=== PATIENT | female | born 1960 | race Caucasian/White ===

== ENCOUNTER 2020-06-19 03:12 | Inpatient (IN) | payer OTHER, SELFPAY ==
[2020-06-19] VITALS (21 sets, daily range): BP systolic 90–112; BP diastolic 34–71; PULSE 75–120; RESP 15–24; TEMP 36.2–38.6; O2SAT 87–100; BMI 22.8
--- NOTE | 2020-06-19 03:34 | PC.NURSE ---
IV established, labs obtained. Awaiting primary MD tirado.
--- NOTE | 2020-06-19 03:39 | PC.NURSE ---
Pt is from home by EMS, CAOx4, speaking full sentences, reports a productive cough, SOB, PANTOJA, vomiting and weakness since Tuesday. Pt using inhalers with no relief. Expiratory wheezing noted throughout however pt in no respiratory distress, skin pink, warm and dry, satting @ 98% on 2 lpm. Pt denies being seen for current medical complaints prior to tonight. Pt denies sick contacts. Resting in bed, call saucedo within reach, awaiting primary MD eval. Continue to monitor.
--- NOTE | 2020-06-19 03:54 | ECG_ITS ---
Test Reason : SOB Blood Pressure : / mmHG Vent. Rate : 110 BPM Atrial Rate : 110 BPM P-R Int : 128 ms QRS Dur : 088 ms QT Int : 332 ms P-R-T Axes : 031 027 052 degrees QTc Int : 449 ms Sinus tachycardia Otherwise normal ECG When compared with ECG of 19-DEC-2018 16:20, No significant change was found Heart rate has increased Referred By: Daniel Galan Electronically Signed By:CONCHITA KAY MD
--- NOTE | 2020-06-19 03:54 | XR_ITS ---
EXAMINATION: XR CHEST CLINICAL INFORMATION: Shortness of breath COMPARISON: 12/19/2018 TECHNIQUE: Frontal view of the chest was obtained. FINDINGS: The lungs are well expanded. Airspace opacity of the left mid to lower lung. Possible small left pleural effusion. No pneumothorax. The cardiomediastinal silhouette is within normal limits. XR/XR chest 1V IMPRESSION: Airspace opacity of the left mid to lower lung is suspicious for pneumonia. Follow-up to resolution.
--- NOTE | 2020-06-19 04:05 | ED_ITS ---
HPI - SOB/Dyspnea General Chief Complaint: Dyspnea Stated Complaint: flu like symptoms, sob and vomiting Time Seen by Provider: 06/19/20 03:54 Source: patient Mode of arrival: ambulatory History of Present Illness HPI Narrative: 59-year-old female with chief complaint of shortness of breath x1 week. Patient states of increased cough however has not noticed any increase in phlegm production. Denies fevers however does have chills. Denies being around any sick people with COVID. Denies chest pain denies nausea vomiting or abdominal pain. Denies dizziness or syncope Patient states to me she is having a COPD attack MD elicited complaint: shortness of breath and cough Pertinent past history: COPD Timing: constant Severity: moderate Known history of: COPD Related Data Home Medications Medication Instructions Recorded Confirmed alprazolam 1 mg PO BID PRN 06/19/20 06/19/20 fluticasone propionate [Flovent 2 puff INHALATION BID 06/19/20 06/19/20 HFA] ibuprofen 600 mg PO TID 06/19/20 06/19/20 ipratropium-albuterol 3 ml INHALATION NEEDED 06/19/20 06/19/20 sertraline 100 mg PO DAILY 06/19/20 06/19/20 umeclidinium [Incruse Ellipta] 1 INHALATION DAILY 06/19/20 umeclidinium [Incruse Ellipta] 62.5 mcg INHALATION DAILY 06/19/20 06/19/20 Previous Rx's Medication Instructions Recorded albuterol sulfate 90 mcg/actuation 2 puff PO Q2H PRN #8.5 g 05/27/20 aerosol inhaler Allergies Allergy/AdvReac Type Severity Reaction Status Date / Time No Known Allergies Allergy Unverified 04/10/20 19:09 [No Known Allergies*] latex Allergy Unknown rash Uncoded 06/19/20 05:58 Review of Systems Review of Systems: Constitutional : No Weight loss, No Fever, No Chills, No Night Sweats, mild Fatigue, mild Malaise ENT/Mouth : No Hearing loss, No Ear Pain, No Nasal Congestion, No Sinus Pain, No Hoarseness, No sore throat, No Rhinorrhea, No Swallowing Difficulty Eyes: No Eye Pain, No Swelling, No Redness, No Foreign Body, No Discharge, No Vision Changes Cardiovascular : No Chest Pain, No SOB, No Dyspnea on Exertion, No Orthopnea, No Edema, No Palpitations Respiratory : Positive Cough, No Sputum, positive Wheezing, No Smoke Exposure, positive Dyspnea Gastrointestinal : No Nausea, No Vomiting, No Diarrhea, No Constipation, No abdominal Pain, No Hematochezia, No Melena Genitourinary : no irregular bleeding, No Dysuria, No Urinary Frequency, No Hematuria, No Urinary Incontinence, No Urgency, No Flank Pain, No Urinary Flow Changes, No Hesitancy Musculoskeletal : No joint pain, No Myalgias, No Joint Swelling Skin : No Skin Lesions, No rash Neuro : No Weakness, No Numbness, No Paresthesias, No Loss of Consciousness, No Dizziness, No Headache Psych : No Anxiety/Panic, No Depression, No SI/HI/AH/VH, No Social Issues, Heme/Lymph: No Bruising, No Bleeding,No Lymphadenopathy Endocrine : No Polyuria, No Polydipsia, No Temperature Intolerance [facility] Past Medical History Medical History (Updated 06/19/20 @ 06:38 by Jacoby Stern MD) Anxiety Asthma with COPD (chronic obstructive pulmonary disease) Family History Family History (Updated 06/19/20 @ 04:11 by Daniel Galan DO) Other Family history non-contributory Social History Social History (Updated 06/19/20 @ 04:11 by Daniel Galan DO) Household Members: Family Advance Directives: No Physical Exam Vital Signs: Vital Signs: Last Vital Signs Temp 98.6 F 06/19/20 05:34 Pulse 100 06/19/20 06:58 Resp 24 H 06/19/20 06:58 BP 102/53 L 06/19/20 06:58 Pulse Ox 96 06/19/20 06:58 Body Mass Index 22.8 Vital signs reviewed Pulse ox interpreted by me as 98% room air as normal Appearance: Alert. Oriented X3. No acute distress. Eyes: Pupils equal, round and reactive to light. ENT: Pharynx normal. Neck: Normal inspection. Neck supple. No lymph nodes noted. No crepitus CVS: Normal heart rate and rhythm. Pulses normal. Normal S1 and S2 Respiratory: [id number] respiratory distress. Breath sounds abnormal. Bilateral Wheezing. No rales decreased air movement bilateral Abdomen: Soft and nontender. No rigidity. No distention. good BS x4 Skin: Skin warm and dry. Normal skin color. Normal skin turgor. Extremities: No lower extremity edema. Neurovascular intact to all extremities. No Lacerations. No Rash Neuro: Oriented X 3. No motor deficit. No sensory deficit. Moving all extermities. No slurred speech. Course Course Course Narrative: Focused exam done at 05:00, IV fluids laboratory work IV antibiotics Reevaluation(s) Reevaluation #1: Was called bedside secondary to patient going to the restroom and coming back with severe shortness of breath. Patient's wheezing does now sounds like rales then she is having chest pain. Troponin at this point is in the buchanan zone. Patient has no history of heart disease and patient only received 1 L of fluids. At this point I will stop IV fluids. Repeat EKG and chest x-ray start 2 g of IV Mag I viewed repeat x-ray does not show oval failure. Repeat EKG did not show any STEMI. I did give the patient morphine in which did not help her pain I then gave her IV Toradol my impression is the pain secondary to her pneumonia infiltrate will continue to evaluate Time: 05:15 Time: 06:33 Reevaluation #3: I discussed admission with hospitalist who accepted patient, Dr Stern, requested sublingual nitro for chest pain after evaluation Re-evaluation out 7 a.m. after nitro patient without any chest pain relief at this point I do not believe it is cardiac MDM - SOB/Dyspnea MDM Narrative Medical decision making narrative: 59-year-old female history of COPD came in f or shortness of breath diagnosed with sepsis pneumonia. Sepsis bundle began in the emergency department.. Differential Diagnosis Differential diagnosis: Likely acute exacerbation of chronic obstructive airways disease (Sepsis, pneumonia) Medical Records Attestation: I reviewed the patient's medical records. Lab Data Attestation: I reviewed the patient's lab results. Result diagrams: 06/19/20 04:05 06/19/20 04:05 Labs: Lab Results 06/19/20 06/19/20 06/19/20 Range/Units 04:05 04:05 04:05 WBC 45.7 H* (4.8-10.8) X10*3/uL RBC 4.38 (4.20-5.50) X10*6/uL Hgb 12.4 (12.0-16.0) g/dl Hct 37.6 (37-47) % MCV 85.8 (80-98) fL MCH 28.3 (27.0-33.0) pg MCHC 33.0 (31.0-35.0) g/dl RDW 12.2 (11.0-16.0) % Plt Count 456 H (160-400) X10*3/uL MPV 9.9 (9.4-12.3) fL Immature Gran % (Auto) Cancelled Neut % (Auto) Cancelled Lymph % (Auto) Cancelled [place] % (Auto) Cancelled Eos % (Auto) Cancelled Baso % (Auto) Cancelled Lymph # (Auto) Cancelled [place] # (Auto) Cancelled Eos # (Auto) Cancelled Baso # (Auto) Cancelled Abs Immat Gran (auto) Cancelled Absolute Neuts (auto) Cancelled Absolute Nucleated RBC 0.000 (0.0-0.012) X10*3/uL Nucleated RBC % (auto) 0.0 (0.0-0.2) /100WBC Neutrophils % (Manual) 79 H (45-73) % Band Neutrophils % 12 H (3-5) % Lymphocytes % (Manual) 1 L (20-40) % Monocytes % (Manual) 7 (2-11) % Metamyelocytes % 1 % Abs Neuts (Manual) 41.6 H (2.2-7.9) X10*3/uL Lymphocytes # (Manual) 0.5 L (0.6-4.8) X10*3/uL Monocytes # (Manual) 3.2 H (0.0-1.2) X10*3/uL Metamyelocytes # 0.5 X10*3/uL Toxic Vacuolation PRESENT Platelet Estimate NORMAL (NORMAL) Plt Morphology Comment NORMAL RBC Morphology NORMAL PT 17.0 H (10.8-13.0) SEC INR 1.4 H (0.9-1.1) APTT 29.8 (24.1-38.0) SEC Sodium 129 L (135-145) mmol/L Potassium 4.4 (3.3-5.1) mmol/l Chloride 90 L (96-108) mmol/L Carbon Dioxide 26 (22-29) mmol/L Anion Gap 17 (12-20) BUN 40 H (9-16) mg/dL Creatinine 0.89 (0.5-1.4) mg/dL Estim Creat Clear Calc 55.1 Estimated GFR > 60 Random Glucose 97 (60-115) mg/dL Lactic Acid (0.5-2.0) mmol/L Calcium 8.2 L (8.4-10.2) mg/dL Total Bilirubin 0.6 (0.0-1.0) mg/dL Direct Bilirubin 0.5 (0.0-0.5) mg/dL AST 22 (5-31) U/L ALT 19 (0-31) U/L Alkaline Phosphatase 152 H (39-117) U/L Troponin I High Sens (<3.5-17.0) ng/L B-Natriuretic Peptide (<100) pg/mL Total Protein 6.3 L (6.5-8.0) g/dL Albumin 3.1 L (3.5-5.0) g/dL Lipase 5 L (8-78) U/L Coronavirus (PCR) (Negative) Influenza Type A (PCR) (Negative) Influenza Type B (PCR) (Negative) RSV RNA Qual (PCR) (Negative) 06/19/20 06/19/20 06/19/20 Range/Units 04:05 04:05 04:05 WBC (4.8-10.8) X10*3/uL RBC (4.20-5.50) X10*6/uL Hgb (12.0-16.0) g/dl Hct (37-47) % MCV (80-98) fL MCH (27.0-33.0) pg MCHC (31.0-35.0) g/dl RDW (11.0-16.0) % Plt Count (160-400) X10*3/uL MPV (9.4-12.3) fL Immature Gran % (Auto) Neut % (Auto) Lymph % (Auto) [place] % (Auto) Eos % (Auto) Baso % (Auto) Lymph # (Auto) [place] # (Auto) Eos # (Auto) Baso # (Auto) Abs Immat Gran (auto) Absolute Neuts (auto) Absolute Nucleated RBC (0.0-0.012) X10*3/uL Nucleated RBC % (auto) (0.0-0.2) /100WBC Neutrophils % (Manual) (45-73) % Band Neutrophils % (3-5) % Lymphocytes % (Manual) (20-40) % Monocytes % (Manual) (2-11) % Metamyelocytes % % Abs Neuts (Manual) (2.2-7.9) X10*3/uL Lymphocytes # (Manual) (0.6-4.8) X10*3/uL Monocytes # (Manual) (0.0-1.2) X10*3/uL Metamyelocytes # X10*3/uL Toxic Vacuolation Platelet Estimate (NORMAL) Plt Morphology Comment RBC Morphology PT (10.8-13.0) SEC INR (0.9-1.1) APTT (24.1-38.0) SEC Sodium (135-145) mmol/L Potassium (3.3-5.1) mmol/l Chloride (96-108) mmol/L Carbon Dioxide (22-29) mmol/L Anion Gap (12-20) BUN (9-16) mg/dL Creatinine (0.5-1.4) mg/dL Estim Creat Clear Calc Estimated GFR Random Glucose (60-115) mg/dL Lactic Acid 1.2 (0.5-2.0) mmol/L Calcium (8.4-10.2) mg/dL Total Bilirubin (0.0-1.0) mg/dL Direct Bilirubin (0.0-0.5) mg/dL AST (5-31) U/L ALT (0-31) U/L Alkaline Phosphatase (39-117) U/L Troponin I High Sens 14.9 (<3.5-17.0) ng/L B-Natriuretic Peptide 35 (<100) pg/mL Total Protein (6.5-8.0) g/dL Albumin (3.5-5.0) g/dL Lipase (8-78) U/L Coronavirus (PCR) NEGATIVE (Negative) Influenza Type A (PCR) NEGATIVE (Negative) Influenza Type B (PCR) NEGATIVE (Negative) RSV RNA Qual (PCR) NEGATIVE (Negative) ECG Data Attestation: I personally reviewed and interpreted this ECG as follows: Interpretation: Sinus tachycardic at 110 beats per minute. Normal axis. No ST- T changes Repeat EKG done at 05:21 interpreted by me as sinus tachycardia [address]-T changes Critical Care Time Critical Care Time Critical Care Time: Yes Total Critical Care Time: 35 Attestation: I tested my critical care Discharge Plan Discharge Clinical Impression: COPD exacerbation, Chest pain, Hyponatremia Pneumonia Qualifiers: Pneumonia type: due to unspecified organism Laterality: left Lung location: lower lobe of lung Qualified Code(s): J18.9 - Pneumonia, unspecified organism Sepsis Qualifiers: Sepsis type: sepsis due to unspecified organism Sepsis acute organ dysfunction status: unspecified Qualified Code(s): A41.9 - Sepsis, unspecified organism Patient Disposition: Admitted As Inpatient
[2020-06-19] MEDS: methylPREDNISolone Sod Succ/PF 125 MG/2 ML VIAL 60 MG IVPUSH (04:08)
[2020-06-19] MEDS: Acetaminophen 325 MG TABLET 650 MG PO (04:08)
[2020-06-19] MEDS: levoFLOXacin/D5W 750 MG/150 ML PIGGYBACK 100 MG IV (04:08)
[2020-06-19] MEDS: 0.9 % Sodium Chloride 1,700.97 ML 1700.97 ML IVCONT (04:09)
[2020-06-19] MEDS: Albuterol Sulfate (0.083%) 2.5 MG/3 ML VIAL.NEB 7.5 MG INHALE (04:19)
[2020-06-19 04:22] LABS: Hematocrit 37.6 % (37-47); Hemoglobin 12.4 g/dl (12.0-16.0); Mean Corpuscular Hemoglobin 28.3 pg (27.0-33.0); Mean Corpuscular Volume 85.8 fL (80-98); Mean Platelet Volume 9.9 fL (9.4-12.3); Platelet Count 456 X10*3/uL (160-400); Red Blood Count 4.38 X10*6/uL (4.20-5.50); Red Cell Distribution Width 12.2 % (11.0-16.0)
[2020-06-19 04:27] LABS: White Blood Count 45.7 X10*3/uL (4.8-10.8)
--- NOTE | 2020-06-19 04:28 | PC.NURSE ---
All labs including BCX x 2 and lactic obtained, Covid swab obtained. Pt medicated per EMAR with IVF, ABX and meds. EKG obtained. Pt awaiting lab results and CXR. Call saucedo within reach, continue to monitor.
[2020-06-19 04:31] LABS: INTERNATIONAL NORM RATIO 1.4 (0.9-1.1)
[2020-06-19 04:34] LABS: Partial Thromboplastin Time 29.8 SEC (24.1-38.0)
[2020-06-19 04:40] LABS: Lactic Acid 1.2 mmol/L (0.5-2.0)
[2020-06-19 04:46] LABS: Alanine Aminotransferase 19 U/L (0-31); Albumin Level 3.1 g/dL (3.5-5.0); Alkaline Phosphatase 152 U/L (39-117); Anion Gap 17 (12-20); Aspartate Amino Transferase 22 U/L (5-31); Bilirubin Direct 0.5 mg/dL (0.0-0.5); Bilirubin Total 0.6 mg/dL (0.0-1.0); Blood Urea Nitrogen 40 mg/dL (9-16); Calcium 8.2 mg/dL (8.4-10.2); Carbon Dioxide 26 mmol/L (22-29); Chloride 90 mmol/L (96-108); Creatinine Clr Calc Pharmacy 55.1; Estimated Glomerular Filt Rate > 60; Glucose Random 97 mg/dL (60-115); Lipase 5 U/L (8-78); Potassium 4.4 mmol/l (3.3-5.1); Sodium 129 mmol/L (135-145); Total Protein 6.3 g/dL (6.5-8.0)
[2020-06-19 04:50] LABS: Band Neutrophils Percent 12 % (3-5); Lymphocytes Absolute Manual 0.5 X10*3/uL (0.6-4.8); Lymphocytes Percent Manual 1 % (20-40); Metamyelocytes Absolute 0.5 X10*3/uL; Metamyelocytes Percent 1 %; Monocytes Absolute Manual 3.2 X10*3/uL (0.0-1.2); Monocytes Percent Manual 7 % (2-11); Neutrophils Absolute Manual 41.6 X10*3/uL (2.2-7.9); Neutrophils Percent Manual 79 % (45-73)
[2020-06-19 04:52] LABS: Platelet Estimate NORMAL (NORMAL); Platelet Morphology Comment NORMAL; RBC Morphology NORMAL; Toxic Vacuolation PRESENT; Troponin-I High Sensitivity 14.9 ng/L (<3.5-17.0)
[2020-06-19 05:01] LABS: Influenza A PCR NEGATIVE (Negative); Influenza B PCR NEGATIVE (Negative); Resp Syncy Virus RNA Qual PCR NEGATIVE (Negative); SARS COV2 PCR INHOUSE NEGATIVE (Negative)
--- NOTE | 2020-06-19 05:13 | XR_ITS ---
EXAMINATION: XR CHEST CLINICAL INFORMATION: Shortness of breath COMPARISON: 06/19/2020 TECHNIQUE: Frontal view of the chest was obtained. FINDINGS: Cardiac leads overlie the chest. Redemonstration of the prominent left mid to lower lung airspace opacity. Cannot exclude associated pleural effusion. No pneumothorax. The cardiomediastinal silhouette is unchanged. XR/XR chest 1V IMPRESSION: Similar appearance of the left mid to lower lung airspace opacity, concerning for pneumonia. Follow-up to resolution.
--- NOTE | 2020-06-19 05:13 | ECG_ITS ---
Test Reason : REPEAT Blood Pressure : / mmHG Vent. Rate : 104 BPM Atrial Rate : 104 BPM P-R Int : 130 ms QRS Dur : 086 ms QT Int : 346 ms P-R-T Axes : 036 031 051 degrees QTc Int : 454 ms Sinus tachycardia Otherwise normal ECG When compared with ECG of 19-JUN-2020 04:20, No significant change was found Referred By: Daniel Galan Electronically Signed By:CONCHITA KAY MD
--- NOTE | 2020-06-19 05:13 | PC.NURSE ---
Addendum entered by Alpa Bacon 06/19/20 05:16: IVF DCed, pt only receiving 1 li of NS. technical sales manager at bedside for repeat EKG. Original Note: Pt requesting to use the bathroom, assisted to the bathroom by technical sales manager. Upon return to room, pt reporting increased chest tightness, audible rales noted. RT and MD at bedside. Pt noted to be diaphoretic, maintaining and O2 sat of 97%. Per MD, plan for IV Morphine and CXR.
[2020-06-19] MEDS: Morphine Sulfate 4 MG/ML CARTRIDGE IVPUSH (05:20)
[2020-06-19] MEDS: Albuterol Sulfate (0.083%) 2.5 MG/3 ML VIAL.NEB 5 MG INHALE (05:26)
[2020-06-19] MEDS: Magnesium Sulfate/H2O 2 GM/50 ML PIGGYBACK IV (05:30)
--- NOTE | 2020-06-19 05:35 | PC.NURSE ---
Pt medicated with Morphine and Mag per MD order. Second IV line established to right forearm. Pt reports no rellef of chest discomfort after Morphine but is now nauseated. VSS. Continue to monitor.
--- NOTE | 2020-06-19 05:37 | PC.NURSE ---
Per MD to reinitiate IVF administration as pts most recent XRay not showing pulmonary edema.
[2020-06-19] MEDS: Ketorolac Tromethamine 30 MG/ML VIAL IVPUSH (05:46)
[2020-06-19] MEDS: ondansetron HCL 4 MG/2 ML VIAL IVPUSH (05:46)
--- NOTE | 2020-06-19 05:46 | PC.NURSE ---
Pt medicated for 8/10 chest discomfort and nausea with Toradol and Zofran. Pt currently receiving UPD, resting in bed. Med Rec completed at bedside with pt.
[2020-06-19 05:50] LABS: B Type Natriuretic Peptide 35 pg/mL (<100)
--- NOTE | 2020-06-19 06:15 | PC.NURSE ---
Hospitalist at bedside.
--- NOTE | 2020-06-19 06:27 | P.HPHOSP_ITS ---
History of Present Illness Date of Service: 06/19/20 Chief Complaint: shortness of breath this is a 59-year-old female with past medical history of COPD who presents to the hospital with complaints of shortness of breath, wheezing, coughing, sputum production and vomiting. Patient reports that her symptoms started few days ago, worsened today. She has no fever or chills. She has had multiple episode of vomiting nonbloody, no abdominal pain, diarrhea constipation. Patient reports that since being in the hospital she started having chest pain that is midsternal, pressure-like, nonradiating, worse with cough, and reproducible. Patient denies any sick contacts or recent travel. She has such as significant cough that she has developed back and chest wall pain. She has headache for the past 1 week. She denies any leg swelling, no orthopnea or PND. On arrival to the ED patient has a temp of 101.5?, pulse rate of 114, respiratory rate of 24, blood pressure 112/41. She satting 98% on room air. [place] [address], PT of 17, INR of 1.4, sodium of 129, chloride of 90, BUN of 40, creatinine of 0.89, lipase of 5, COVID-19 negative, chest x-ray shows airspace opacity of the left mid to lower lung suspicious for pneumonia EKG shows no ST T-wave changes past medical history: COPD, anxiety Surgical history: , cholecystectomy, knee surgery is Family history: Adopted Social history: Comes from home, former tobacco use, quit 4 years ago, denies any alcohol or illicit drugs [facility] Medical History (Updated 06/19/20 @ 06:38 by Jacoby Stern MD) Anxiety Asthma with COPD (chronic obstructive pulmonary disease) Family History (Updated 06/19/20 @ 04:11 by Daniel Galan DO) Other Family history non-contributory Social History (Updated 06/19/20 @ 04:11 by Daniel Galan DO) Household Members: Family Advance Directives: No Meds Allergies Allergy/AdvReac Type Severity Reaction Status Date / Time No Known Allergies Allergy Unverified 04/10/20 19:09 [No Known Allergies*] latex Allergy Unknown rash Uncoded 06/19/20 05:58 Home Medications Medication Instructions Recorded Confirmed Type alprazolam 1 mg PO BID PRN 06/19/20 06/19/20 History fluticasone propionate [Flovent 2 puff INHALATION BID 06/19/20 06/19/20 History HFA] ibuprofen 600 mg PO TID 06/19/20 06/19/20 History ipratropium-albuterol 3 ml INHALATION NEEDED 06/19/20 06/19/20 History sertraline 100 mg PO DAILY 06/19/20 06/19/20 History umeclidinium [Incruse Ellipta] 1 INHALATION DAILY 06/19/20 History umeclidinium [Incruse Ellipta] 62.5 mcg INHALATION DAILY 06/19/20 06/19/20 History Physical Exam Vital Signs and Narrative: Vital Signs: Last Vital Signs Temp 98.6 F 06/19/20 05:34 Pulse 105 H 06/19/20 05:34 Resp 24 H 06/19/20 05:34 BP 106/38 L 06/19/20 05:34 Pulse Ox 98 06/19/20 05:34 Body Mass Index 22.8 Const: General: cooperative and no acute distress Orientation/consciousness: patient oriented x3 Eyes: General: appearance normal, both eyes and all related structures Pupils: Equal, round and reactive pupils present Resp: Other: mild respiratory distress, cough, audible wheezing Auscultati on: clear to auscultation bilaterally Cardio: Rate: regular rate Rhythm: regular rhythm GI: Palpation (GI): Soft to palpation Auscultation: normal bowel sounds Skin: General skin exam: no rashes or lesions noted Neuro: General: patient oriented x3 Cranial nerves: Yes Equal, round and reactive pupils present Cognition (Neuro): normal cognition Extrem: General: Yes normal to inspection and Yes no pedal edema Results Labs CBC and Chem 7: 06/19/20 04:05 06/19/20 04:05 Labs: Laboratory Results - last 24 hr 06/19/20 06/19/20 06/19/20 04:05 04:05 04:05 MCV 85.8 MCH 28.3 MCHC 33.0 RDW 12.2 Plt Count 456 H MPV 9.9 Immature Gran % (Auto) Cancelled Neut % (Auto) Cancelled Lymph % (Auto) Cancelled [place] % (Auto) Cancelled Eos % (Auto) Cancelled Baso % (Auto) Cancelled Lymph # (Auto) Cancelled [place] # (Auto) Cancelled Eos # (Auto) Cancelled Baso # (Auto) Cancelled Abs Immat Gran (auto) Cancelled Absolute Neuts (auto) Cancelled Absolute Nucleated RBC 0.000 Nucleated RBC % (auto) 0.0 Neutrophils % (Manual) 79 H Band Neutrophils % 12 H Lymphocytes % (Manual) 1 L Monocytes % (Manual) 7 Metamyelocytes % 1 Abs Neuts (Manual) 41.6 H Lymphocytes # (Manual) 0.5 L Monocytes # (Manual) 3.2 H Metamyelocytes # 0.5 Toxic Vacuolation PRESENT Platelet Estimate NORMAL Plt Morphology Comment NORMAL RBC Morphology NORMAL PT 17.0 H INR 1.4 H APTT 29.8 Anion Gap 17 Estim Creat Clear Calc 55.1 Estimated GFR > 60 Random Glucose 97 Lactic Acid Calcium 8.2 L Total Bilirubin 0.6 Direct Bilirubin 0.5 AST 22 ALT 19 Alkaline Phosphatase 152 H Troponin I High Sens B-Natriuretic Peptide Total Protein 6.3 L Albumin 3.1 L Lipase 5 L Coronavirus (PCR) Influenza Type A (PCR) Influenza Type B (PCR) RSV RNA Qual (PCR) 06/19/20 06/19/20 06/19/20 04:05 04:05 04:05 MCV MCH MCHC RDW Plt Count MPV Immature Gran % (Auto) Neut % (Auto) Lymph % (Auto) [place] % (Auto) Eos % (Auto) Baso % (Auto) Lymph # (Auto) [place] # (Auto) Eos # (Auto) Baso # (Auto) Abs Immat Gran (auto) Absolute Neuts (auto) Absolute Nucleated RBC Nucleated RBC % (auto) Neutrophils % (Manual) Band Neutrophils % Lymphocytes % (Manual) Monocytes % (Manual) Metamyelocytes % Abs Neuts (Manual) Lymphocytes # (Manual) Monocytes # (Manual) Metamyelocytes # Toxic Vacuolation Platelet Estimate Plt Morphology Comment RBC Morphology PT INR APTT Anion Gap Estim Creat Clear Calc Estimated GFR Random Glucose Lactic Acid 1.2 Calcium Total Bilirubin Direct Bilirubin AST ALT Alkaline Phosphatase Troponin I High Sens 14.9 B-Natriuretic Peptide 35 Total Protein Albumin Lipase Coronavirus (PCR) NEGATIVE Influenza Type A (PCR) NEGATIVE Influenza Type B (PCR) NEGATIVE RSV RNA Qual (PCR) NEGATIVE Imaging Radiologist's Impressions: Impressions Chest X-Ray 06/19/20 03:54 IMPRESSION: Airspace opacity of the left mid to lower lung is suspicious for pneumonia. Follow-up to resolution. Chest X-Ray 06/19/20 05:13 IMPRESSION: Similar appearance of the left mid to lower lung airspace opacity, concerning for pneumonia. Follow-up to resolution. Assessment and Plan (1) COPD exacerbation: Status: Acute (2) Sepsis: Qualifiers: Sepsis acute organ dysfunction status: unspecified Sepsis type: sepsis due to unspecified organism Qualified Code(s): A41.9 - Sepsis, unspecified organism Status: Acute (3) Asthma with COPD (chronic obstructive pulmonary disease): Status: Acute (4) Pneumonia: Qualifiers: Laterality: left Lung location: lower lobe of lung Pneumonia type: due to unspecified organism Qualified Code(s): J18.9 - Pneumonia, unspecified organism Status: Acute (5) Leukocytosis: Status: Acute (6) Anxiety: Status: Acute this is a 59-year-old female with past medical history of COPD / asthma who presents to the hospital with shortness of breath. Chest x-ray reveals infiltrate # sepsis - secondary to COPD exacerbation as well as community-acquired pneumonia - tachycardia, tachypnea, leukocytosis, lactic normal plan: - Will start on ceftriaxone and azithromycin - follow blood cultures - COVID-19 negative # COPD / asthma exacerbation - dyspnea, wheezing, cough, sputum production - chest x-ray showing pneumonia Plan: - Solu-Medrol, DuoNeb q.i.d. and p.r.n. - O2 supplement as required # community-acquired pneumonia - chest x-ray as above - will start on ceftriaxone azithromycin - follow blood cultures - strep pneumonia and Legionella # hyponatremia - last sodium from 2019 of 142 - unclear of the chronicity - will start her on NS and monitor BMP closely - nephroloy consult # leukocytosis - most likely secondary to acute infection/ sepsis/pneumonia - IV antibiotics as above - follow CBC # anxiety - p.r.n. hydroxyzine DVT prophylaxis Lovenox
[2020-06-19] MEDS: Nitroglycerin 0.4 MG TAB.SUBL SUBLINGUAL (06:28)
--- NOTE | 2020-06-19 06:31 | PC.NURSE ---
Repeat Troponin obtained and sent. Pt medicated with Nitro per MD order, MD aware of BP 101/38. Continue to monitor.
--- NOTE | 2020-06-19 06:59 | PC.NURSE ---
Pt reports no relief of chest discomfort after Nitro. VSS. Report given to MICHAEL Camarillo.
[2020-06-19] MEDS: fentaNYL citrate/PF 100 MCG/2 ML VIAL 50 MCG IVPUSH (07:16)
--- NOTE | 2020-06-19 07:22 | PC.NURSE ---
REPORT TAKEN FROM MICHAELA RODRIGUEZ. PT UPON INITIAL [id number] WAS TRYING TO GET UP FROM BED, LUNG SOUNDS COARSE AND AUDIBLE. PT HAD TO USE BATHROOM. PUT BACK TO BED, NOW BREATHING HAS IMPROVED. MD AT BEDSIDE. ORDER FOR IV FENTANYL FOR PAIN. PT HAS CHEST DISCOMFORT, MEDICATED PER ORDERS. PT WAITING FOR BED ASSIGNMENT FOR ADMISSION.
[2020-06-19 07:29] LABS: Troponin-I High Sensitivity 12.2 ng/L (<3.5-17.0)
--- NOTE | 2020-06-19 09:22 | PM.EVENT ---
Documented by User: MAYO Rojas 06/19/20 12:19 Event Note Date of Service: 06/19/20 Event Note: Patient seen and examined. 59 year old female with h/o asthma/COPD, anxiety who presented with SOB, cough found to have sepsis/COPD/PNA sepsis secondary to PNA/COPD Lactic acid wnl. Continue ceftriaxone and azithromycin - follow blood cultures - COVID-19 negative # COPD /asthma exacerbation - Solu-Medrol, DuoNeb q.i.d. and p.r.n. - O2 supplement as required # hyponatremia, mild 129 - Continue NS and monitor BMP closely - nephroloy consult # leukocytosis - most likely secondary to acute infection/ sepsis/pneumonia - IV antibiotics as above - follow CBC #chest pain MS r/t cough EKG with no ischemic changes, trops flat This case was discussed with Dr. Courtney Documented by User: Solange Courtney MD 06/19/20 15:04 Event Note Date of Service: 06/19/20
[2020-06-19] MEDS: ALPRAZolam 0.5 MG TABLET 1 MG PO ×2 (09:26→18:12)
--- NOTE | 2020-06-19 11:41 | PC.NURSE ---
report given to spenser ochoa
[2020-06-19] MEDS: Albuterol/Iprat 2.5/0.5MG 3 ML AMPUL.NEB INHALE ×2 (12:38→16:46)
[2020-06-19] MEDS: Enoxaparin Sodium 40 MG/0.4 ML SYRINGE SUBCUT (13:20)
[2020-06-19] MEDS: Azithromycin 500 MG TABLET PO (13:20)
[2020-06-19] MEDS: cefTRIAXone sodium 1 GM in 0.9 % Sodium Chloride 50 ML IV (13:20)
[2020-06-19] MEDS: Sertraline HCL 100 MG TABLET PO (13:21)
[2020-06-19 13:28] LABS: Basophils Absolute Auto 0.1 X10*3/uL (0.0-0.2); Basophils Percent Auto 0.3 % (0-2); Eosinophils Percent Auto 0.1 % (0-4); Hematocrit 33.4 % (37-47); Imm Gran Abs Auto 1.04 X10*3/uL (0.00-0.03); Imm Gran Pct Auto 2.9 % (0.0-0.4); Lymphocytes Absolute Auto 0.6 X10*3/uL (1.2-4.9); Lymphocytes Percent Auto 1.7 % (20-40); MANUAL DIFF FLAG SCAN; Mean Corpuscular HGB Conc 32.9 g/dl (31.0-35.0); Mean Corpuscular Hemoglobin 28.2 pg (27.0-33.0); Mean Corpuscular Volume 85.6 fL (80-98); Mean Platelet Volume 9.9 fL (9.4-12.3); Monocytes Absolute Auto 1.3 X10*3/uL (0.1-1.2); Monocytes Percent Auto 3.5 % (2-11); Neutrophils Percent Auto 91.5 % (45-73); Platelet Count 417 X10*3/uL (160-400); Red Cell Distribution Width 12.2 % (11.0-16.0); SCAN SMEAR FLAG 1
[2020-06-19 13:36] LABS: White Blood Count 36.1 X10*3/uL (4.8-10.8)
[2020-06-19 13:48] LABS: Anion Gap 13 (12-20); Blood Urea Nitrogen 32 mg/dL (9-16); Calcium 7.5 mg/dL (8.4-10.2); Carbon Dioxide 23 mmol/L (22-29); Chloride 101 mmol/L (96-108); Creatinine Clr Calc Pharmacy 64.5; Estimated Glomerular Filt Rate > 60; Glucose Random 178 mg/dL (60-115); Potassium 3.6 mmol/l (3.3-5.1); Sodium 133 mmol/L (135-145)
[2020-06-19 13:54] LABS: SLIDE REVIEW VERIFIED
[2020-06-19] MEDS: 0.9 % Sodium Chloride 1,000 ML 80 ML IVCONT (17:09)
[2020-06-19] MEDS: Ketorolac Tromethamine 15 MG/ML VIAL IVPUSH (18:10)
[2020-06-19] MEDS: 0.9 % Sodium Chloride Flush 3 ML SYRINGE IVFLUSH (23:24)
[2020-06-20] VITALS (8 sets, daily range): BP systolic 108–133; BP diastolic 53–57; PULSE 82–87; RESP 16–20; TEMP 36.2–36.9; O2SAT 91–98
[2020-06-20] MEDS: Ketorolac Tromethamine 15 MG/ML VIAL IVPUSH ×3 (04:04→17:02)
[2020-06-20] MEDS: 0.9 % Sodium Chloride 1,000 ML 80 ML IVCONT (04:06)
[2020-06-20 05:12] LABS: Basophils Absolute Auto 0.1 X10*3/uL (0.0-0.2); Basophils Percent Auto 0.2 % (0-2); Hematocrit 33.9 % (37-47); Hemoglobin 10.9 g/dl (12.0-16.0); Imm Gran Abs Auto 0.99 X10*3/uL (0.00-0.03); Imm Gran Pct Auto 2.8 % (0.0-0.4); Lymphocytes Absolute Auto 0.8 X10*3/uL (1.2-4.9); Lymphocytes Percent Auto 2.3 % (20-40); MANUAL DIFF FLAG SCAN; Mean Corpuscular HGB Conc 32.2 g/dl (31.0-35.0); Mean Corpuscular Hemoglobin 27.5 pg (27.0-33.0); Mean Corpuscular Volume 85.4 fL (80-98); Mean Platelet Volume 9.8 fL (9.4-12.3); Monocytes Percent Auto 2.8 % (2-11); Neutrophils Absolute Auto 32.9 X10*3/uL (2.0-8.3); Neutrophils Percent Auto 91.9 % (45-73); Platelet Count 452 X10*3/uL (160-400); Red Blood Count 3.97 X10*6/uL (4.20-5.50); Red Cell Distribution Width 12.2 % (11.0-16.0); SCAN SMEAR FLAG 1
[2020-06-20 05:23] LABS: White Blood Count 35.8 X10*3/uL (4.8-10.8)
--- NOTE | 2020-06-20 05:25 | MHC.PIE ---
p; wbc 35.8 i; dr coffey notified e; will cont to monitor
[2020-06-20 05:35] LABS: Anion Gap 13 (12-20); Blood Urea Nitrogen 27 mg/dL (9-16); Calcium 7.7 mg/dL (8.4-10.2); Carbon Dioxide 23 mmol/L (22-29); Chloride 105 mmol/L (96-108); Creatinine Clr Calc Pharmacy 71.1; Estimated Glomerular Filt Rate > 60; Glucose Random 173 mg/dL (60-115); Potassium 3.6 mmol/l (3.3-5.1); Sodium 137 mmol/L (135-145)
[2020-06-20 05:42] LABS: SLIDE REVIEW VERIFIED
[2020-06-20] MEDS: Albuterol/Iprat 2.5/0.5MG 3 ML AMPUL.NEB INHALE ×3 (07:27→20:23)
[2020-06-20] MEDS: Sertraline HCL 100 MG TABLET PO (08:33)
[2020-06-20] MEDS: ALPRAZolam 0.5 MG TABLET 1 MG PO (08:34)
[2020-06-20] MEDS: 0.9 % Sodium Chloride Flush 3 ML SYRINGE IVFLUSH ×2 (08:34→15:03)
--- NOTE | 2020-06-20 08:51 | MHC.CM.PN ---
Female 59 DX FLU symptoms SOB Vomiting. She lives with Family. She is independent all functional mobility. DP home no services family transport. Copy of HCP requested. CM will follow.
[2020-06-20] MEDS: cefTRIAXone sodium 1 GM in 0.9 % Sodium Chloride 50 ML IV (11:10)
[2020-06-20] MEDS: Enoxaparin Sodium 40 MG/0.4 ML SYRINGE SUBCUT (11:10)
[2020-06-20] MEDS: Azithromycin 500 MG TABLET PO (11:10)
--- NOTE | 2020-06-20 11:30 | HO.PM.IMPN ---
Subjective Subjective Date of Service: 06/20/20 Interval History: Seen in f/u for sepsis due to pneumonia, Clinically is doing better today. No fever, WBC is coming down ROS: +SOB, no fever, no chest pain Physical Exam Vital Signs: Vital Signs: Last Vital Signs Temp 97.5 F 06/20/20 08:00 Pulse 82 06/20/20 08:00 Resp 20 06/20/20 08:00 BP 116/57 L 06/20/20 08:00 Pulse Ox 94 06/20/20 08:00 Body Mass Index 22.8 General: AO X 3, no acute distress Resp: l CVS: S1,S2,RRR GI: +BS, NT, no distention Skin: No rash Neuro: motor grossly intact Psych: appropriate affect Objective Data Current Medications Generic Name Dose Route Start Last Admin Trade Name Freq PRN Reason Stop Dose Admin Acetaminophen 650 mg 06/19/20 11:55 Acetaminophen 325 Mg Tablet PO Q6H PRN Pain, Mild (Pain Scale 1-3) Albuterol/Ipratropium 3 ml 06/19/20 11:55 Albuterol/Iprat 2.5/0.5mg 3 Ml Ampul.Neb INHALE Q2H PRN Shortness of Breath/Wheezing Albuterol/Ipratropium 3 ml 06/19/20 11:55 06/20/20 07:27 Albuterol/Iprat 2.5/0.5mg 3 Ml Ampul.Neb INHALE 3 ml RQ6H WHILE AWAKE GURWINDER Administration Alprazolam 1 mg 06/19/20 11:55 06/20/20 08:34 Alprazolam 0.5 Mg Tablet PO 1 mg BID PRN Administration Anxiety Azithromycin 500 mg 06/19/20 11:55 06/20/20 11:10 Azithromycin 500 Mg Tablet PO 500 mg Q24H GURWINDER Administration Docusate Sodium 100 mg 06/19/20 11:55 Docusate Sodium 100 Mg Capsule PO DAILY PRN Constipation Enoxaparin Sodium 40 mg 06/19/20 11:55 06/20/20 11:10 Enoxaparin Sodium 40 Mg/0.4 Ml Syringe SUBCUT 40 mg Q24H GURWINDER Administration Sodium Chloride 1,000 mls @ 80 mls/hr 06/19/20 06:45 06/20/20 04:06 Ns IVCONT 80 mls/hr .[id number] GURWINDER Administration Ceftriaxone Sodium 1 gm/ 50 mls @ 100 mls/hr 06/19/20 11:55 06/20/20 11:10 Sodium Chloride IV 100 mls/hr Q24H GURWINDER Administration Ketorolac Tromethamine 15 mg 06/19/20 12:19 06/20/20 10:41 Ketorolac Tromethamine 15 Mg/Ml Vial IVPUSH 15 mg Q6H PRN Administration Pain, Moderate (Pain Scale 4-6 Methylprednisolone Sodium Succinate 40 mg 06/19/20 11:55 06/20/20 11:10 Methylprednisolone Sod Succ/Pf 40 Mg/Ml Vial IVPUSH 40 mg Q12H GURWINDER Administration Ondansetron HCl 4 mg 06/19/20 11:55 Ondansetron Hcl 4 Mg/2 Ml Vial IVPUSH Q8H PRN Nausea and Vomiting Sertraline HCl 100 mg 06/19/20 11:55 06/20/20 08:33 Sertraline Hcl 100 Mg Tablet PO 100 mg DAILY GURWINDER Administration Sodium Chloride 3 ml 06/19/20 11:55 06/20/20 08:34 0.9 % Sodium Chloride Flush 3 Ml Syringe IVFLUSH 3 ml QSHIFT GURWINDER Administration Labs CBC & Chem 7: 06/20/20 04:52 06/20/20 04:52 Microbiology Microbiology Results: Microbiology 06/19/20 04:07 Blood - Venous Blood Culture - Preliminary No growth after 24 hours. 06/19/20 04:07 Blood - Venous Blood Culture - Preliminary No growth after 24 hours. Assessment and Plan (1) COPD exacerbation: Status: Acute (2) Sepsis: Status: Acute (3) Asthma with COPD (chronic obstructive pulmonary disease): Status: Acute (4) Pneumonia: Status: Acute (5) Leukocytosis: Status: Acute (6) Anxiety: Status: Acute Assessment and Plan: 59-year-old female with past medical history of COPD / asthma who presents to the hospital with shortness of breath. Chest x-ray reveals infiltrate # sepsis improving, tachycardia resolved, no fever. WBC remains very high however. -continue treating underlying Pneumonia # COPD / asthma exacerbation - dyspnea, wheezing, cough, sputum production - chest x-ray showing pneumonia Plan: - Solu-Medrol, DuoNeb q.i.d. and p.r.n. - O2 supplement as required # community-acquired pneumonia, negative covid - Continue ceftriaxone azithromycin D2 - B cultures are negative so far - strep pneumonia and Legionella Ag pending # hyponatremia--likely from SSRI, sodium level is now better. Will see what nephrology has to say # leukocytosis--improving, I am not sure if this is just from pneumonia. WBC has gone down from 45K to 35K, - most likely secondary to acute infection/ sepsis/pneumonia but if not improving. check c dif, if remain high, consider hematology consult # anxiety - p.r.n. hydroxyzine DVT prophylaxis Lovenox
--- NOTE | 2020-06-20 13:13 | PM.PNNEP ---
Subjective Subjective Date of Service: 06/20/20 Interval history: Patient seen and examined consult dictated Physical Exam Vital Signs: Vital Signs: Last Vital Signs Temp 98.1 F 06/20/20 11:42 Pulse 85 06/20/20 11:42 Resp 20 06/20/20 11:42 BP 112/54 L 06/20/20 11:42 Pulse Ox 94 06/20/20 11:42 Body Mass Index 22.8 Assessment & Plan Assessment and plan (1) Hyponatremia: Status: Acute Assessment and Plan: probably hypotonic hyponatremia combination of: -increased ADH from underlying PNA/COPD and SSRI -hypovolemia component REC discontinue IVF no need for fluid restriction follow electrolytes Thank you Time Spent With Patient Time: Total time spent is greater than 50% in coordination of care (as documented) at patient's floor/unit and/or counseling patient:
[2020-06-21] VITALS (9 sets, daily range): BP systolic 112–139; BP diastolic 45–75; PULSE 76–93; RESP 19–20; TEMP 36.2–36.7; O2SAT 92–97
[2020-06-21] MEDS: 0.9 % Sodium Chloride Flush 3 ML SYRINGE IVFLUSH ×4 (00:43→23:30)
[2020-06-21] MEDS: guaiFENesin DM 100/10/5 ML 5 ML SYRUP PO ×2 (04:16→12:41)
[2020-06-21] MEDS: Albuterol/Iprat 2.5/0.5MG 3 ML AMPUL.NEB INHALE ×3 (07:20→20:11)
[2020-06-21 07:33] LABS: Hematocrit 31.6 % (37-47); Hemoglobin 10.2 g/dl (12.0-16.0); Mean Corpuscular HGB Conc 32.3 g/dl (31.0-35.0); Mean Corpuscular Hemoglobin 27.9 pg (27.0-33.0); Mean Corpuscular Volume 86.6 fL (80-98); Mean Platelet Volume 9.7 fL (9.4-12.3); Platelet Count 483 X10*3/uL (160-400); Red Blood Count 3.65 X10*6/uL (4.20-5.50); Red Cell Distribution Width 12.6 % (11.0-16.0); White Blood Count 29.4 X10*3/uL (4.8-10.8)
[2020-06-21 08:06] LABS: Anion Gap 10 (12-20); Blood Urea Nitrogen 27 mg/dL (9-16); Calcium 7.8 mg/dL (8.4-10.2); Carbon Dioxide 28 mmol/L (22-29); Chloride 105 mmol/L (96-108); Creatinine Clr Calc Pharmacy 80.4; Estimated Glomerular Filt Rate > 60; Glucose Random 124 mg/dL (60-115); Potassium 4.4 mmol/l (3.3-5.1); Sodium 139 mmol/L (135-145)
[2020-06-21] MEDS: ALPRAZolam 0.5 MG TABLET 1 MG PO ×2 (08:26→19:46)
[2020-06-21] MEDS: Sertraline HCL 100 MG TABLET PO (08:26)
[2020-06-21] MEDS: Enoxaparin Sodium 40 MG/0.4 ML SYRINGE SUBCUT (12:30)
[2020-06-21] MEDS: Azithromycin 500 MG TABLET PO (12:32)
[2020-06-21] MEDS: cefTRIAXone sodium 1 GM in 0.9 % Sodium Chloride 50 ML IV (12:37)
[2020-06-21] MEDS: Ketorolac Tromethamine 15 MG/ML VIAL IVPUSH (12:41)
--- NOTE | 2020-06-21 14:53 | HO.PM.IMPN ---
Subjective Subjective Date of Service: 06/21/20 Interval History: pna, copd. Review of Systems Still feels generalized malaise, tired, has short of breath also cough. Denies any chest pain or abdominal pain or any urinary complaints , afebrile. Physical Exam Vital Signs: Vital Signs: Last Vital Signs Temp 97.7 F 06/21/20 11:27 Pulse 92 06/21/20 13:43 Resp 20 06/21/20 11:27 BP 134/75 06/21/20 11:27 Pulse Ox 95 06/21/20 11:27 Body Mass Index 22.8 Physical exam: Constitutional: Has cough, seems generally weak. Heent: Eyes anicteric, no discharge. Cvs: rrr, [id number] , no murmur res: Grossly fair entry, slightly diminished at bases. abd: no rebound or guarding ,nt, bs present. ext pulses present , no cyanosis neuro: axo3 , nonfocal. Objective Data Current Medications Generic Name Dose Route Start Last Admin Trade Name Freq PRN Reason Stop Dose Admin Acetaminophen 650 mg 06/19/20 11:55 Acetaminophen 325 Mg Tablet PO Q6H PRN Pain, Mild (Pain Scale 1-3) Albuterol/Ipratropium 3 ml 06/19/20 11:55 06/20/20 16:38 Albuterol/Iprat 2.5/0.5mg 3 Ml Ampul.Neb INHALE 3 ml Q2H PRN Administration Shortness of Breath/Wheezing Albuterol/Ipratropium 3 ml 06/19/20 11:55 06/21/20 13:42 Albuterol/Iprat 2.5/0.5mg 3 Ml Ampul.Neb INHALE 3 ml RQ6H WHILE AWAKE GURWINDER Administration Alprazolam 1 mg 06/19/20 11:55 06/21/20 08:26 Alprazolam 0.5 Mg Tablet PO 1 mg BID PRN Administration Anxiety Azithromycin 500 mg 06/19/20 11:55 06/21/20 12:32 Azithromycin 500 Mg Tablet PO 500 mg Q24H GURWINDER Administration Docusate Sodium 100 mg 06/19/20 11:55 Docusate Sodium 100 Mg Capsule PO DAILY PRN Constipation Enoxaparin Sodium 40 mg 06/19/20 11:55 06/21/20 12:30 Enoxaparin Sodium 40 Mg/0.4 Ml Syringe SUBCUT 40 mg Q24H GURWINDER Administration Guaifenesin/Dextromethorphan 5 ml 06/21/20 03:55 06/21/20 12:41 Guaifenesin Dm 100/10/5 Ml 5 Ml Syrup PO 5 ml Q6H PRN Administration Cough Ceftriaxone Sodium 1 gm/ 50 mls @ 100 mls/hr 06/19/20 11:55 06/21/20 13:22 Sodium Chloride IV Infused Q24H GURWINDER Infusion Ketorolac Tromethamine 15 mg 06/19/20 12:19 06/21/20 12:41 Ketorolac Tromethamine 15 Mg/Ml Vial IVPUSH 15 mg Q6H PRN Administration Pain, Moderate (Pain Scale 4-6 Methylprednisolone Sodium Succinate 40 mg 06/19/20 11:55 06/21/20 12:29 Methylprednisolone Sod Succ/Pf 40 Mg/Ml Vial IVPUSH 40 mg Q12H GURWINDER Administration Ondansetron HCl 4 mg 06/19/20 11:55 Ondansetron Hcl 4 Mg/2 Ml Vial IVPUSH Q8H PRN Nausea and Vomiting Sertraline HCl 100 mg 06/19/20 11:55 06/21/20 08:26 Sertraline Hcl 100 Mg Tablet PO 100 mg DAILY GURWINDER Administration Sodium Chloride 3 ml 06/19/20 11:55 06/21/20 08:29 0.9 % Sodium Chloride Flush 3 Ml Syringe IVFLUSH 3 ml QSHIFT GURWINDER Administration Labs CBC & Chem 7: 06/21/20 06:57 06/21/20 06:57 Microbiology Microbiology Results: Microbiology 06/19/20 04:07 Blood - Venous Blood Culture - Preliminary 06/19/20 04:07 Blood - Venous Blood Culture - Preliminary No growth after 48 hours. Assessment and Plan (1) COPD exacerbation: Status: Acute (2) Pneumonia: Status: Acute Assessment and Plan: 59-year-old female with past medical history of COPD / asthma who presents to the hospital with shortness of breath. Chest x-ray reveals infiltrate. 1. sepsis improving, tachycardia resolved, no fever. WBC remains very high however. iv ceftriaxone and azithromycin day a 3 1/2 set of blood culture came out to be Gram-positive cocci-question probably contamination since no new fever and patient is slowly improving the WBC esquivel. Will continue to monitor if new fever or any new changes we can add vancomycin. 2.COPD / asthma exacerbation dyspnea, wheezing, cough, sputum production chest x-ray showing pneumonia continue Solu-Medrol, DuoNeb q.i.d. and p.r.n. O2 supplement as required 3. community-acquired pneumonia, negative covid Continue ceftriaxone azithromycin D3, B cultures are negative , strep pneumonia and Legionella Ag pending 4. hyponatremia--seems normalised , thought to be related to: likely from SSRI, sodium level is now better. Will see what nephrology has to say 5. leukocytosis--improving, I am not sure if this is just from pneumonia. most likely secondary to acute infection/ sepsis/pneumonia/ steriods -slowly imrpoving to 29.4 from 45k, will contiinue to moniter 6. anxiety: p.r.n. hydroxyzine
[2020-06-21] MEDS: guaiFEN/Codeine SF 200/20/10ML 10 ML LIQUID 5 ML PO (17:16)
[2020-06-22] VITALS (7 sets, daily range): BP systolic 124–159; BP diastolic 63–76; PULSE 79–113; RESP 18–24; TEMP 36.7–36.9; O2SAT 95–97
[2020-06-22] MEDS: Ketorolac Tromethamine 15 MG/ML VIAL IVPUSH ×2 (05:38→12:09)
[2020-06-22] MEDS: Albuterol/Iprat 2.5/0.5MG 3 ML AMPUL.NEB INHALE (06:23)
[2020-06-22 07:39] LABS: Hematocrit 33.3 % (37-47); Hemoglobin 10.7 g/dl (12.0-16.0); Mean Corpuscular HGB Conc 32.1 g/dl (31.0-35.0); Mean Corpuscular Hemoglobin 27.4 pg (27.0-33.0); Mean Corpuscular Volume 85.4 fL (80-98); Mean Platelet Volume 9.5 fL (9.4-12.3); NRBC Pct Auto 0.1 /100WBC (0.0-0.2); Platelet Count 538 X10*3/uL (160-400); Red Cell Distribution Width 12.7 % (11.0-16.0); White Blood Count 25.6 X10*3/uL (4.8-10.8)
[2020-06-22] MEDS: 0.9 % Sodium Chloride Flush 3 ML SYRINGE IVFLUSH ×3 (07:57→23:19)
[2020-06-22] MEDS: ALPRAZolam 0.5 MG TABLET 1 MG PO (07:57)
[2020-06-22] MEDS: Sertraline HCL 100 MG TABLET PO (07:57)
[2020-06-22] MEDS: guaiFENesin DM 100/10/5 ML 5 ML SYRUP PO (09:28)
[2020-06-22] MEDS: Azithromycin 500 MG TABLET PO (11:25)
[2020-06-22] MEDS: cefTRIAXone sodium 1 GM in 0.9 % Sodium Chloride 50 ML IV (11:25)
[2020-06-22] MEDS: Enoxaparin Sodium 40 MG/0.4 ML SYRINGE SUBCUT (11:31)
--- NOTE | 2020-06-22 13:42 | PC.NURSE ---
1320 FOUND BY FASHION MARKETER IN BATHROOM, DOOR LOCKED AND WAS UNRESPONSIVE, COLOR PALE ,DIAPHORETIC, TRANSFERRED BTB. RAPID RESPONSE CALLED. POC 201 DR REYES AT BEDSIDE WELL RESPONSE TEAM. STILL UNRESPONSIVE, NARCAN 0.4MG GIVEN BEGAN RESPONDING IMMEDIATELY. FOUND SMALL PURSE IN BATHROOM, ? HEROIN, GIVEN TO SECURITY.
[2020-06-22 13:43] LABS: Glucose, Whole Blood 201 mg/dL (60-115)
--- NOTE | 2020-06-22 13:44 | MHC.CM.PN ---
Addendum entered by Reanna Joyner 06/22/20 13:55: GUILLERMINA SEE BEDSIDE NURSING NOTE 06/22/2020 1320 FOUND IN BATHROOM, DOOR LOCKED AND WAS UNRESPONSIVE, RAPID RESPONSE TEAMS AND HOSPITALIST CALLED, NARCOAN WAS ADMINISTERED , RESPONDING IMEDIATELY Original Note: NURSE DISTRIBUTION ASSOCIATE NOTE ELECTRONIC MEDICAL RECORD REVIEWED ALONG WITH CASE DISCUSSED WITH STAFF NURSE , PER DOCUMENTAITON PATIENT WITH COPD/ASTHMA EXACERBATION, WITH CXR CONFIRMING INFILTRATE/PNEUMONIA . STILL WITH PERSISTENT DYSPNEA, WHEEZING COUGH SPUTUM PRODUCTION PLAN CONTINUE TO FOLLOW MONITOR LABS CONTINUE IV CEFTRIZXONE AND AZITHROMYCIN,CONTINUE DUONEBS Q2HRS PRN AND Q6HRS SCHEDULED , IV KETEROAC Q6HRS PRN METHYLPREDNISONE NA Q12HRS AND OXYGEN SUPPLEMENTATION DISCHARGE PLAN INITIALLY HOME WITH NO SERVICES DISTRIBUTION ASSOCIATE TO CNTINUE TO FOLLOW FOR ANY CHANGES IN NEEDS AT TIME OF DISCHARGE
[2020-06-22 13:52] LABS: Pt Ventilation O2% 100%
[2020-06-22 13:53] LABS: Base Excess ABG -3.9; HCO3 ABG 30 mmol/l (22-26); Oxygen Saturation ABG 92.1 %; PO2 ABG 88 mmhg (83-108)
--- NOTE | 2020-06-22 13:53 | PC.NURSE ---
1335 ALERT, VAGUE TO WHAT HAPPENED STATES SHE THOUGHT SHE HAD A BAD DREAM. DENIES KNOWING ABOUT ANY DRUGS IN PURSE. VSS SAT 96& BP 170\87 HR 102
[2020-06-22 13:54] LABS: pH ABG 7.02 (7.35-7.45)
[2020-06-22 13:55] LABS: ABG PCO2 119 mmhg (32-45)
--- NOTE | 2020-06-22 14:00 | MHC.INPTTRAN ---
1130 found in BR unresponsive rapid response called. Narcan was given at 1330 0.4mg with eff. Denies knowing any drug use. purse found in bathroom suspiicious for heroin. sent to security. at baseline pt is alert. here for COPD and pneu was close to discharge back home today or tomorrow.POs blood cultures thought to be contaminated. on PO zithro. and solumedrol 40mg q 12hours. thanks.
--- NOTE | 2020-06-22 14:52 | XR_ITS ---
EXAMINATION: XR CHEST CLINICAL INFORMATION: Syncope. Pneumonia. COMPARISON: 06/19/2020 TECHNIQUE: Frontal view of the chest was obtained. FINDINGS: Bronchial gill appear to be diffusely thickened. Patchy airspace disease in the perihilar region has improved. However, the left lower lobe airspace disease is not appreciably changed. No overt pleural effusion or pneumothorax. Cardiac silhouette is normal in size. The visualized bones are intact. XR/XR chest 1V IMPRESSION: * The airway gill appear to be diffusely thickened, likely from patient's asthma. * Patchy airspace opacity in the left lung, consistent with pneumonia. Although the disease is slightly improved in the left perihilar region, it is not improved in the left lower lung zone.
--- NOTE | 2020-06-22 14:52 | ECG_ITS ---
Test Reason : EKG Blood Pressure : / mmHG Vent. Rate : 108 BPM Atrial Rate : 108 BPM P-R Int : 130 ms QRS Dur : 078 ms QT Int : 328 ms P-R-T Axes : 044 043 065 degrees QTc Int : 439 ms Sinus tachycardia Otherwise normal ECG When compared with ECG of [id number] T wave amplitude has increased in Inferior leads Referred By: Richard Medina Electronically Signed By:CONCHITA KAY MD
--- NOTE | 2020-06-22 15:42 | P.PNIM_ITS ---
Subjective Subjective Date of Service: 06/23/20 Interval History: Patient was being treated for COPD exacerbation and pneumonia- today had Heroin overdose she was in the bathroom and was found syncopized - Rapid response was called because of subsequently found to have pinpoint pupil-received Narcan, and then she woke up was slightly altered mental status and hypoxia. Review of Systems denies any chest pain Physical Exam Vital Signs: Vital Signs: Last Vital Signs Temp 98.0 F 06/22/20 10:21 Pulse 113 H 06/22/20 14:17 Resp 24 H 06/22/20 14:17 BP 124/64 06/22/20 14:17 Pulse Ox 95 06/22/20 14:17 Body Mass Index 22.8 Physical exam: heent: eyes anicteric , no discharge. Cvs: rrr, [id number] , no murmur res: clear to auscultation ,no rhonchii or wheezing abd: no rebound or guarding ,nt, bs present. ext pulses present , no cyanosis neuro: axo3 , nonfocal. Objective Data Current Medications Generic Name Dose Route Start Last Admin Trade Name Freq PRN Reason Stop Dose Admin Acetaminophen 650 mg 06/19/20 11:55 Acetaminophen 325 Mg Tablet PO Q6H PRN Pain, Mild (Pain Scale 1-3) Albuterol/Ipratropium 3 ml 06/19/20 11:55 06/22/20 06:23 Albuterol/Iprat 2.5/0.5mg 3 Ml Ampul.Neb INHALE 3 ml Q2H PRN Administration Shortness of Breath/Wheezing Albuterol/Ipratropium 3 ml 06/19/20 11:55 06/22/20 13:44 Albuterol/Iprat 2.5/0.5mg 3 Ml Ampul.Neb INHALE Not Given RQ6H WHILE AWAKE GURWINDER Alprazolam 1 mg 06/19/20 11:55 06/22/20 07:57 Alprazolam 0.5 Mg Tablet PO 1 mg BID PRN Administration Anxiety Azithromycin 500 mg 06/19/20 11:55 06/22/20 11:25 Azithromycin 500 Mg Tablet PO 500 mg Q24H GURWINDER Administration Docusate Sodium 100 mg 06/19/20 11:55 Docusate Sodium 100 Mg Capsule PO DAILY PRN Constipation Enoxaparin Sodium 40 mg 06/19/20 11:55 06/22/20 11:31 Enoxaparin Sodium 40 Mg/0.4 Ml Syringe SUBCUT 40 mg Q24H GURWINDER Administration Guaifenesin/Codeine Phosphate 5 ml 06/22/20 12:58 Guaifen/Codeine Sf 200/20/10ml 10 Ml Liquid PO Q4H PRN Cough Guaifenesin/Dextromethorphan 5 ml 06/21/20 03:55 06/22/20 09:28 Guaifenesin Dm 100/10/5 Ml 5 Ml Syrup PO 5 ml Q6H PRN Administration Cough Ceftriaxone Sodium 1 gm/ 50 mls @ 100 mls/hr 06/19/20 11:55 06/22/20 13:02 Sodium Chloride IV Infused Q24H GURWINDER Infusion Ketorolac Tromethamine 15 mg 06/19/20 12:19 06/22/20 12:09 Ketorolac Tromethamine 15 Mg/Ml Vial IVPUSH 15 mg Q6H PRN Administration Pain, Moderate (Pain Scale 4-6 Methylprednisolone Sodium Succinate 40 mg 06/19/20 11:55 06/22/20 11:25 Methylprednisolone Sod Succ/Pf 40 Mg/Ml Vial IVPUSH 40 mg Q12H GURWINDER Administration Ondansetron HCl 4 mg 06/19/20 11:55 Ondansetron Hcl 4 Mg/2 Ml Vial IVPUSH Q8H PRN Nausea and Vomiting Sertraline HCl 100 mg 06/19/20 11:55 06/22/20 07:57 Sertraline Hcl 100 Mg Tablet PO 100 mg DAILY GURWINDER Administration Sodium Chloride 3 ml 06/19/20 11:55 06/22/20 07:57 0.9 % Sodium Chloride Flush 3 Ml Syringe IVFLUSH 3 ml QSHIFT GURWINDER Administration Labs CBC & Chem 7: 06/22/20 07:21 06/21/20 06:57 Microbiology Microbiology Results: Microbiology 06/19/20 04:07 Blood - Venous Blood Culture - Preliminary Coag negative Staphylococcus 06/19/20 04:07 Blood - Venous Blood Culture - Preliminary No growth after 48 hours. Assessment and Plan (1) COPD exacerbation: Status: Acute (2) Pneumonia: Status: Acute Assessment and Plan: 59-year-old female with past medical history of COPD / asthma who presents to the hospital with shortness of breath. Chest x-ray reveals infiltrate. 1. Acute metabolic toxic encephalopathy/acute at acute hypoxemic respiratory failure: Probably related to heroin overdose Patient received 1 dose of Narcan and subsequently improved, during that time patient also received the oxygen via nasal cannula as well as ICU evaluated him her at the bedside was thought probably the syncopal episode related to heroin overdose since urine was found in her possession in the bathroom where she passed out. Patient EKG seems fine normal sinus rhythm, chest x-ray seems also similar to before sepsis improving, tachycardia resolved, no fever. WBC imrpoving (cbc this morning). iv ceftriaxone and azithromycin day a 4 1/ set of blood culture came out to be staph aureus coagulae negative since no new fever and patient is slowly improving the WBC esquivel. Will continue to monitor patient on tele Neuro checks Patient will need BHN clearance since unclear why used her even though she is denying Urine toxicology added 2.COPD / asthma exacerbation dyspnea, wheezing, cough, sputum production chest x-ray showing pneumonia continue Solu-Medrol, DuoNeb q.i.d. and p.r.n. O2 supplement as required 3. community-acquired pneumonia, negative covid Continue ceftriaxone azithromycin D4, B cultures are negative , strep pneumonia and Legionella Ag pending 4. hyponatremia--seems normalised , thought to be related to: likely from SSRI, sodium level is now better. Will see what nephrology has to say 5. leukocytosis--improving, I am not sure if this is just from pneumonia. most likely secondary to acute infection/ sepsis/pneumonia/ steriods -slowly imrpoving to 29.4 from 45k, will contiinue to moniter 6. anxiety: p.r.n. hydroxyzine
[2020-06-22 18:37] LABS: Amphetamine Screen Urine Not Detected (Not Detect); Barbiturates, Urine Not Detected (Not Detect); Benzodiazepines Screen Urine POSITIVE (Not Detect); Cannabinoid Screen Urine Not Detected (Not Detect); Cocaine Screen Urine Not Detected (Not Detect); Opiate Screen Urine POSITIVE (Not Detect); Phencyclidine Screen Urine Not Detected (Not Detect)
[2020-06-23] VITALS (12 sets, daily range): BP systolic 125–166; BP diastolic 69–83; PULSE 66–94; RESP 18–20; TEMP 36.7–37.1; O2SAT 2–97
--- NOTE | 2020-06-23 | ECG_ITS ---
Test Reason : chest pain Blood Pressure : / mmHG Vent. Rate : 078 BPM Atrial Rate : 078 BPM P-R Int : 112 ms QRS Dur : 088 ms QT Int : 374 ms P-R-T Axes : 072 037 065 degrees QTc Int : 426 ms Normal sinus rhythm Normal ECG When compared with ECG of [id number] Heart rate has decreased Referred By: Richard Medina Electronically Signed By:CONCHITA KAY MD
--- NOTE | 2020-06-23 | XR_ITS ---
EXAMINATION: XR CHEST CLINICAL INFORMATION: Shortness of breath, chest pain, pneumonia. Follow-up. COMPARISON: Chest radiographs 06/22/2020, 06/19/2020, 12/19/2018 TECHNIQUE: Portable upright AP view of the chest was obtained. FINDINGS: The left pneumonia with perihilar and left lower zone opacities are similar to prior study 06/22/2020 considering slight differences in film technique. No lobar or segmental airspace opacities on the right. No right effusion. Heart size normal. The visualized hilar and mediastinal contours and bony structures are unremarkable. XR/XR chest 1V IMPRESSION: No significant change left pneumonia when compared with 06/22/2020.
[2020-06-23] MEDS: guaiFENesin 100 MG/5 ML LIQUID PO ×3 (00:29→16:30)
[2020-06-23] MEDS: Albuterol/Iprat 2.5/0.5MG 3 ML AMPUL.NEB INHALE ×5 (01:38→18:33)
[2020-06-23] MEDS: 0.9 % Sodium Chloride Flush 3 ML SYRINGE IVFLUSH ×2 (08:38→15:47)
[2020-06-23] MEDS: ALPRAZolam 0.5 MG TABLET 1 MG PO ×2 (09:08→16:54)
[2020-06-23] MEDS: Sertraline HCL 100 MG TABLET PO (09:08)
[2020-06-23 10:13] LABS: Pt Ventilation O2% 2 L
[2020-06-23 10:17] LABS: pH ABG 7.44 (7.35-7.45)
[2020-06-23 10:18] LABS: ABG PCO2 46 mmhg (32-45); Base Excess ABG 5.2; Blood Gas Serial # 5414; HCO3 ABG 30 mmol/l (22-26); Oxygen Saturation ABG 96.7 %; PO2 ABG 82 mmhg (83-108)
[2020-06-23] MEDS: Enoxaparin Sodium 40 MG/0.4 ML SYRINGE SUBCUT (10:56)
[2020-06-23] MEDS: Azithromycin 500 MG TABLET PO (10:56)
[2020-06-23] MEDS: cefTRIAXone sodium 1 GM in 0.9 % Sodium Chloride 50 ML IV (10:57)
--- NOTE | 2020-06-23 12:30 | PC.NURSE ---
PATIENT STATES SHE IS HAVING SOB AND CHEST PRESSURE/PAIN 8 OUT 10 THAT IS WORSE WHEN SHE COUGHS. PATIENT STATES THAT PAIN FEELS LIKE SHE HAS A HEAVINESS/PRESSURE IN THE CHEST. PATIENT IS 96% ON 3l AND RR 20. DR. REYES MADE AWARE AND AT BEDSIDE. EKG DONE, TROPONIN TO BE DRAWN, CXR TO BE DONE, AND MORPHINE AND ASPIRIN TO BE GIVEN. WILL CONTINUE TO MONITOR PATIENT AT THIS TIME.
[2020-06-23] MEDS: Morphine Sulfate 2 MG/ML CARTRIDGE 0.5 MG IVPUSH (12:38)
[2020-06-23] MEDS: Aspirin Enteric Coated 81 MG TABLET.DR PO (12:39)
[2020-06-23 13:55] LABS: Troponin-I High Sensitivity 6.6 ng/L (<3.5-17.0)
--- NOTE | 2020-06-23 13:56 | MHC.CM.PN ---
Female 59 dx flu symptoms. DP to return home, no services. family will provide transportation.
--- NOTE | 2020-06-23 17:41 | CONS_ITS ---
DATE OF SERVICE: 06/20/2020 HISTORY OF PRESENT ILLNESS: This is a 59-year-old patient with a history of COPD, who presents to the hospital with shortness of breath, was noted to have a low serum sodium. The patient denies any fever or chills. Denies any vomiting, although did have some diarrhea. She complained of shortness of breath and some chest pain. PAST MEDICAL HISTORY: Remarkable for COPD, anxiety. PAST SURGICAL HISTORY: Notable for cholecystectomy, , knee surgery. MEDICATIONS: As outpatient were reviewed and included alprazolam, ibuprofen, sertraline, fluticasone. ALLERGIES: SHE IS ALLERGIC TO LATEX. SOCIAL HISTORY: Does not smoke. FAMILY HISTORY: Negative for kidney disease. REVIEW OF SYSTEMS: 10-point review of system negative except as in history of present illness. PHYSICAL EXAMINATION: VITAL SIGNS: Blood pressure is 112/54, heart rate 85, respiratory rate 20, temperature 98.1. CONSTITUTIONAL: Looks stated age. No acute distress. NEUROLOGIC: Alert, awake. HEENT: Head: Atraumatic, normocephalic. . NECK: Supple. LUNGS: Decreased breath sounds. CARDIOVASCULAR: S1, S2. No rub. ABDOMEN: Soft, nontender. EXTREMITIES: No peripheral edema. LABORATORY DATA: On admission showed a sodium of 129. Today's labs, sodium 137, potassium 3.3, chloride 105, CO2 of 23, BUN 13, creatinine . IMPRESSION: Hyponatremia. This is a patient with hyponatremia, which is most likely hypotonic. She does not have any urine lytes available. I suspect that she does have a combination of increased ADH in the setting of COPD and pneumonia and SSRI use. In addition to that, she complains of diarrhea, which may have contributed to a component of hypovolemia as well. The patient did receive IV fluid with improvement in her serum sodium. I would discontinue IV fluid and continue to follow closely her electrolytes. Thanks for allowing me to participate in the care of your patient. MD AGNIESZKA Bolivar/MODL / [id number]
--- NOTE | 2020-06-23 18:54 | HO.PM.IMPN ---
Subjective Subjective Date of Service: 06/23/20 Interval History: heroin overdose , copd exceerbation Review of Systems still feels , has sob , c/o chest pain episdoe also Physical Exam Vital Signs: Vital Signs: Last Vital Signs Temp 98.3 F 06/23/20 14:57 Pulse 94 06/23/20 18:34 Resp 18 06/23/20 14:57 BP 160/83 H 06/23/20 14:57 Pulse Ox 95 06/23/20 14:57 Body Mass Index 22.8 Physical exam: Cvs: rrr, [id number] , no murmur res: Slightly sounds at bases , has wheezing abd: no rebound or guarding ,nt, bs present. ext pulses present , no cyanosis neuro: axo3 , nonfocal. Objective Data Current Medications Generic Name Dose Route Start Last Admin Trade Name Freq PRN Reason Stop Dose Admin Acetaminophen 650 mg 06/19/20 11:55 Acetaminophen 325 Mg Tablet PO Q6H PRN Pain, Mild (Pain Scale 1-3) Albuterol/Ipratropium 3 ml 06/19/20 11:55 06/23/20 11:45 Albuterol/Iprat 2.5/0.5mg 3 Ml Ampul.Neb INHALE 3 ml Q2H PRN Administration Shortness of Breath/Wheezing Albuterol/Ipratropium 3 ml 06/19/20 11:55 06/23/20 18:33 Albuterol/Iprat 2.5/0.5mg 3 Ml Ampul.Neb INHALE 3 ml RQ6H WHILE AWAKE GURWINDER Administration Alprazolam 1 mg 06/19/20 11:55 06/23/20 16:54 Alprazolam 0.5 Mg Tablet PO 1 mg BID PRN Administration Anxiety Azithromycin 500 mg 06/19/20 11:55 06/23/20 10:56 Azithromycin 500 Mg Tablet PO 500 mg Q24H GURWINDER Administration Docusate Sodium 100 mg 06/19/20 11:55 Docusate Sodium 100 Mg Capsule PO DAILY PRN Constipation Enoxaparin Sodium 40 mg 06/19/20 11:55 06/23/20 10:56 Enoxaparin Sodium 40 Mg/0.4 Ml Syringe SUBCUT 40 mg Q24H GURWINDER Administration Guaifenesin 5 ml 06/23/20 00:18 06/23/20 00:29 Guaifenesin 100 Mg/5 Ml Liquid PO 5 ml Q6H PRN Administration Cough Guaifenesin 5 ml 06/23/20 11:30 06/23/20 16:30 Guaifenesin 100 Mg/5 Ml Liquid PO 5 ml Q6H GURWINDER Administration Guaifenesin/Codeine Phosphate 5 ml 06/22/20 12:58 Guaifen/Codeine Sf 200/20/10ml 10 Ml Liquid PO Q4H PRN Cough Guaifenesin/Dextromethorphan 5 ml 06/21/20 03:55 06/22/20 09:28 Guaifenesin Dm 100/10/5 Ml 5 Ml Syrup PO 5 ml Q6H PRN Administration Cough Ceftriaxone Sodium 1 gm/ 50 mls @ 100 mls/hr 06/19/20 11:55 06/23/20 11:32 Sodium Chloride IV Infused Q24H [facility] Infusion Ketorolac Tromethamine 15 mg 06/19/20 12:19 06/22/20 12:09 Ketorolac Tromethamine 15 Mg/Ml Vial IVPUSH 15 mg Q6H PRN Administration Pain, Moderate (Pain Scale 4-6 Methylprednisolone Sodium Succinate 40 mg 06/19/20 11:55 06/23/20 10:56 Methylprednisolone Sod Succ/Pf 40 Mg/Ml Vial IVPUSH 40 mg Q12H GURWINDER Administration Omeprazole 20 mg 06/24/20 06:30 Omeprazole 20 Mg Capsule.Dr PO DAILY@0630 [facility] Ondansetron HCl 4 mg 06/19/20 11:55 Ondansetron Hcl 4 Mg/2 Ml Vial IVPUSH Q8H PRN Nausea and Vomiting Sertraline HCl 100 mg 06/19/20 11:55 06/23/20 09:08 Sertraline Hcl 100 Mg Tablet PO 100 mg DAILY [facility] Administration Sodium Chloride 3 ml 06/19/20 11:55 06/23/20 15:47 0.9 % Sodium Chloride Flush 3 Ml Syringe IVFLUSH 3 ml QSHIFT [facility] Administration Labs CBC & Chem 7: 06/22/20 07:21 06/21/20 06:57 Microbiology Microbiology Results: Microbiology 06/19/20 04:07 Blood - Venous Blood Culture - Preliminary Coag negative Staphylococcus 06/19/20 04:07 Blood - Venous Blood Culture - Preliminary No growth after 48 hours. Assessment and Plan (1) COPD exacerbation: Status: Acute (2) Pneumonia: Status: Acute Assessment and Plan: 59-year-old female with past medical history of COPD / asthma who presents to the hospital with shortness of breath. Chest x-ray reveals infiltrate. 1. Acute metabolic toxic encephalopathy/acute at acute hypoxemic respiratory failure: Probably related to heroin overdose sepsis improving, tachycardia resolved, no fever. WBC imrpoving (cbc this morning). iv ceftriaxone and azithromycin day 5 1/2 set of blood culture came out to be staph aureus coagulae negative since no new fever and patient is slowly improving the WBC esquivel. Will continue to monitor patient on tele Neuro checks Patient will need BHN clearance since unclear why used heroin even though she is denying Urine toxicology -positive for opioid and benzodiazepine. 2.COPD / asthma exacerbation dyspnea, wheezing, cough, sputum production chest x-ray showing pneumonia continue Solu-Medrol, DuoNeb q.i.d. and p.r.n. O2 supplement as required abg seems improving In addition patient was complaining of chest pains tightness: Which was pleuritic and reproducible EKG nsr and troponin seems negative. 3. community-acquired pneumonia, negative covid Continue ceftriaxone azithromycin D5, B cultures are negative , strep pneumonia and Legionella Ag pending 4. hyponatremia--seems normalised , thought to be related to: likely from SSRI, sodium level is now better. Will see what nephrology has to say 5. leukocytosis--improving, I am not sure if this is just from pneumonia. most likely secondary to acute infection/ sepsis/pneumonia/ steriods -slowly imrpoving to 29.4 from 45k, will contiinue to moniter 6. anxiety: p.r.n. hydroxyzine
[2020-06-23] MEDS: guaiFEN/Codeine SF 200/20/10ML 10 ML LIQUID PO (19:19)
[2020-06-24] VITALS (8 sets, daily range): BP systolic 156–169; BP diastolic 70–80; PULSE 66–89; RESP 18–20; TEMP 35.9–36.9; O2SAT 93–97
--- NOTE | 2020-06-24 | CT_ITS ---
EXAMINATION: CT ANGIOGRAM OF THE CHEST WITH AND WITHOUT CONTRAST (CT PULMONARY ANGIOGRAM FOR PE) CLINICAL INFORMATION: Reason for Exam pneumonia, hytpoxia COMPARISON: Previous chest x-rays most recent from yesterday and chest CTA June 2017 TECHNIQUE: Prior to contrast administration, noncontrast localization images were obtained. Subsequently, multidetector volumetric imaging was performed from the thoracic inlet to below the diaphragms following the administration of 65 mL Omnipaque 350 intravenous contrast. No contrast reaction reported Sagittal, coronal, and MIP oblique sagittal reformatted images were obtained on the CT workstation, uploaded to PACS, and reviewed. This CT examination was performed using dose optimization techniques as appropriate, variously including the following: *Automated exposure control *Adjustment of mA and/or kV according to patient size (this includes techniques or standardized protocols for targeted exams where dose is matched to indication/reason for exam; i.e. extremities or head) *Use of iterative reconstruction technique Total exam dose-length product 110 mGy-cm FINDINGS: QUALITY OF STUDY/CONTRAST BOLUS: Satisfactory. PULMONARY ARTERIES: No central or segmental pulmonary emboli. THORACIC AORTA: No aneurysm or dissection. LUNG: There is a large cavitary left lower lobe pneumonia. There is bulging of the left pleural fissure. There is a 3mm calcified left lower lobe nodule. The right lung is clear. PLEURA: There is a small left pleural effusion. There is no right pleural effusion. MEDIASTINUM: Normal heart size. No pericardial effusion. No hilar or mediastinal lymphadenopathy. No evidence of septal bowing or right heart strain. CHEST WALL/AXILLA: No axillary or internal mammary lymphadenopathy. OSSEOUS STRUCTURES: No acute or suspicious osseous abnormality. UPPER ABDOMEN: Unremarkable. No reflux of contrast into the hepatic veins to suggest elevated right heart pressures. CT/CT angio chest PE protocol IMPRESSION: No evidence of pulmonary embolism. Large cavitary left lower lobe pneumonia. Small left pleural effusion. VTE: negative
[2020-06-24] MEDS: guaiFENesin 100 MG/5 ML LIQUID PO ×5 (00:23→23:08)
[2020-06-24] MEDS: 0.9 % Sodium Chloride Flush 3 ML SYRINGE IVFLUSH ×4 (00:23→19:18)
[2020-06-24] MEDS: Omeprazole 20 MG CAPSULE.DR PO (05:51)
[2020-06-24 06:51] LABS: Hematocrit 36.2 % (37-47); Hemoglobin 11.6 g/dl (12.0-16.0); Mean Corpuscular Hemoglobin 27.9 pg (27.0-33.0); Mean Platelet Volume 9.5 fL (9.4-12.3); Platelet Count 622 X10*3/uL (160-400); Red Blood Count 4.16 X10*6/uL (4.20-5.50); Red Cell Distribution Width 12.7 % (11.0-16.0); White Blood Count 28.5 X10*3/uL (4.8-10.8)
[2020-06-24 06:58] LABS: Anion Gap 13 (12-20); Blood Urea Nitrogen 19 mg/dL (9-16); Calcium 8.2 mg/dL (8.4-10.2); Carbon Dioxide 34 mmol/L (22-29); Chloride 98 mmol/L (96-108); Creatinine Clr Calc Pharmacy 81.8; Estimated Glomerular Filt Rate > 60; Glucose Random 114 mg/dL (60-115); Potassium 4.9 mmol/l (3.3-5.1); Sodium 140 mmol/L (135-145)
[2020-06-24] MEDS: Albuterol/Iprat 2.5/0.5MG 3 ML AMPUL.NEB INHALE ×2 (07:22→11:11)
[2020-06-24] MEDS: Sertraline HCL 100 MG TABLET PO (07:43)
[2020-06-24] MEDS: ALPRAZolam 0.5 MG TABLET 1 MG PO ×2 (07:43→23:05)
[2020-06-24] MEDS: traZODone HCL 25 MG HALFTAB PO (10:20)
[2020-06-24] MEDS: cloNIDine HCL 0.1 MG TABLET PO (10:39)
[2020-06-24 10:40] LABS: Pt Ventilation O2% 2 L
[2020-06-24 10:41] LABS: pH ABG 7.46 (7.35-7.45)
[2020-06-24 10:42] LABS: ABG PCO2 53 mmhg (32-45); Base Excess ABG 10.8; HCO3 ABG 37 mmol/l (22-26); Oxygen Saturation ABG 74.6 %
[2020-06-24 10:45] LABS: PO2 ABG 39 mmhg (83-108)
[2020-06-24] MEDS: cefTRIAXone sodium 1 GM in 0.9 % Sodium Chloride 50 ML IV (10:56)
[2020-06-24] MEDS: Azithromycin 500 MG TABLET PO (10:56)
[2020-06-24] MEDS: Enoxaparin Sodium 40 MG/0.4 ML SYRINGE SUBCUT (10:56)
[2020-06-24 11:51] LABS: Blood Gas Serial # 5414
[2020-06-24 12:04] LABS: Pt Ventilation O2% 2 L
[2020-06-24 12:10] LABS: ABG PCO2 46 mmhg (32-45); Base Excess ABG 10.3; HCO3 ABG 35 mmol/l (22-26); Oxygen Saturation ABG 95.6 %; PO2 ABG 72 mmhg (83-108)
[2020-06-24] MEDS: iohexoL 350 MG/ML 100 ML INFUS..BTL 65 ML IV (14:07)
[2020-06-24] MEDS: ondansetron HCL 4 MG/2 ML VIAL IVPUSH (14:57)
[2020-06-24] MEDS: Piperacillin Sodium/Tazobactam 3.375 GM in 0.9 % Sodium Chloride 50 ML IV ×2 (16:22→21:07)
--- NOTE | 2020-06-24 17:18 | HO.PM.IMPN ---
Subjective Subjective Date of Service: 06/24/20 Interval History: Acute hypoxemic and hypercarbic respiratory failure secondary to COPD and pneumonia ? Question lung abscess issue Review of Systems Patient still has Pleurtic pain, short of breath Denies any abdominal pain or fever or chills or any urinary complaint, Has episode of diarrhea Physical Exam Vital Signs: Vital Signs: Last Vital Signs Temp 98.0 F 06/24/20 14:56 Pulse 68 06/24/20 14:56 Resp 20 06/24/20 14:56 BP 156/72 H 06/24/20 14:56 Pulse Ox 95 06/24/20 14:56 Body Mass Index 22.8 Physical exam: HEENT: Eyes are anicteric, no discharge Cvs: rrr, [id number] , no murmur res: breath sounds diminshed left lower lung , no rales , has wheezin abd: no rebound or guarding ,nt, bs present. ext pulses present , no cyanosis neuro: axo3 , nonfocal. Objective Data Current Medications Generic Name Dose Route Start Last Admin Trade Name Asmita PRN Reason Stop Dose Admin Acetaminophen 650 mg 06/19/20 11:55 Acetaminophen 325 Mg Tablet PO Q6H PRN Pain, Mild (Pain Scale 1-3) Albuterol/Ipratropium 3 ml 06/19/20 11:55 06/24/20 11:11 Albuterol/Iprat 2.5/0.5mg 3 Ml Ampul.Neb INHALE 3 ml Q2H PRN Administration Shortness of Breath/Wheezing Albuterol/Ipratropium 3 ml 06/19/20 11:55 06/24/20 13:29 Albuterol/Iprat 2.5/0.5mg 3 Ml Ampul.Neb INHALE Not Given RQ6H WHILE AWAKE GURWINDER Alprazolam 1 mg 06/19/20 11:55 06/24/20 07:43 Alprazolam 0.5 Mg Tablet PO 1 mg BID PRN Administration Anxiety Azithromycin 500 mg 06/19/20 11:55 06/24/20 10:56 Azithromycin 500 Mg Tablet PO 500 mg Q24H GURWINDER Administration Clonidine HCl 0.1 mg 06/24/20 10:14 06/24/20 10:39 Clonidine Hcl 0.1 Mg Tablet PO 0.1 mg BID PRN Administration anxiety/restlessness Protocol Docusate Sodium 100 mg 06/19/20 11:55 Docusate Sodium 100 Mg Capsule PO DAILY PRN Constipation Enoxaparin Sodium 40 mg 06/19/20 11:55 06/24/20 10:56 Enoxaparin Sodium 40 Mg/0.4 Ml Syringe SUBCUT 40 mg Q24H GURWINDER Administration Guaifenesin 5 ml 06/23/20 00:18 06/23/20 00:29 Guaifenesin 100 Mg/5 Ml Liquid PO 5 ml Q6H PRN Administration Cough Guaifenesin 5 ml 06/23/20 11:30 06/24/20 16:35 Guaifenesin 100 Mg/5 Ml Liquid PO 5 ml Q6H GURWINDER Administration Guaifenesin/Codeine Phosphate 5 ml 06/22/20 12:58 Guaifen/Codeine Sf 200/20/10ml 10 Ml Liquid PO Q4H PRN Cough Guaifenesin/Codeine Phosphate 10 ml 06/23/20 18:57 06/23/20 19:19 Guaifen/Codeine Sf 200/20/10ml 10 Ml Liquid PO 10 ml Q4H PRN Administration Cough Guaifenesin/Dextromethorphan 5 ml 06/21/20 03:55 06/22/20 09:28 Guaifenesin Dm 100/10/5 Ml 5 Ml Syrup PO 5 ml Q6H PRN Administration Cough Piperacillin Sod/Tazobactam 50 mls @ 100 mls/hr 06/24/20 16:00 06/24/20 17:00 Sod 3.375 gm/ Sodium Chloride IV Infused Q6H GURWINDER Infusion Ketorolac Tromethamine 15 mg 06/19/20 12:19 06/22/20 12:09 Ketorolac Tromethamine 15 Mg/Ml Vial IVPUSH 15 mg Q6H PRN Administration Pain, Moderate (Pain Scale 4-6 Methylprednisolone Sodium Succinate 40 mg 06/19/20 11:55 06/24/20 10:56 Methylprednisolone Sod Succ/Pf 40 Mg/Ml Vial IVPUSH 40 mg Q12H GURWINDER Administration Omeprazole 20 mg 06/24/20 06:30 06/24/20 05:51 Omeprazole 20 Mg Capsule.Dr PO 20 mg DAILY@0630 GURWINDER Administration Ondansetron HCl 4 mg 06/19/20 11:55 Ondansetron Hcl 4 Mg/2 Ml Vial IVPUSH Q8H PRN Nausea and Vomiting Ondansetron HCl 4 mg 06/24/20 14:30 06/24/20 14:57 Ondansetron Hcl 4 Mg/2 Ml Vial IVPUSH 4 mg Q6H PRN Administration Nausea Sertraline HCl 100 mg 06/19/20 11:55 06/24/20 07:43 Sertraline Hcl 100 Mg Tablet PO 100 mg DAILY GURWINDER Administration Sodium Chloride 3 ml 06/19/20 11:55 06/24/20 14:57 0.9 % Sodium Chloride Flush 3 Ml Syringe IVFLUSH 3 ml QSHIFT GURWINDER Administration Labs CBC & Chem 7: 06/24/20 05:27 06/24/20 05:27 Microbiology Microbiology Results: Microbiology 06/19/20 04:07 Blood - Venous Blood Culture - Final Coag negative Staphylococcus 06/19/20 04:07 Blood - Venous Blood Culture - Final No growth after 5 days. Assessment and Plan (1) Pneumonia: Status: Acute (2) COPD exacerbation: Status: Acute Assessment and Plan: 59-year-old female with past medical history of COPD / asthma who presents to the hospital with shortness of breath. Chest x-ray reveals infiltrate. 1. Acute metabolic toxic encephalopathy/acute at acute hypoxemic respiratory failure: Probably related to heroin overdose sepsis improving, tachycardia resolved, no fever. WBC slightly up iv zosyn day 1 and azithromycin day 6 1 set of blood culture came out to be staph aureus coagulae negative. Will continue to monitor patient on tele Added HIV testing Patient will need N clearance since unclear why used heroin even though she is denying Urine toxicology -positive for opioid and benzodiazepine. 2.COPD / asthma exacerbation: dyspnea, wheezing, cough, sputum production chest x-ray showing pneumonia continue Solu-Medrol, DuoNeb q.i.d. and p.r.n. O2 supplement as required abg seems improving In addition patient was complaining of chest pains tightness: Which was pleuritic and reproducible EKG nsr and troponin seems negative. 3. hyponatremia--seems normalised , thought to be related to: likely from SSRI, sodium level is now better. Will see what nephrology has to say 4. leukocytosis--improving, I am not sure if this is just from pneumonia. most likely secondary to acute infection/ sepsis/pneumonia/ steriods -slowly imrpoving to 29.4 from 45k, will contiinue to moniter 5. anxiety: p.r.n. hydroxyzine. 6. Diarrahae: stool for wbc , stool for c diff , stool cultures
[2020-06-24 17:21] LABS: Leukocytes Stool Qualitative NEGATIVE (NEGATIVE)
[2020-06-24 17:50] LABS: CDIFF Ag Positive (Negative); CDIFF Internal ctrl Dots and bkg OK (V); CDiff Toxin Negative (Negative)
[2020-06-24] MEDS: vancomycin HCL 125 MG CAPSULE PO ×2 (18:29→23:08)
[2020-06-24] MEDS: metroNIDAZOLE/NS 500 MG/100 ML PIGGYBACK 100 MG IV (19:18)
--- NOTE | 2020-06-24 20:13 | P.CONPL_ITS ---
History of Present Illness History of Present Illness Consult date: 06/24/20 Chief complaint: flu like symptoms, sob and vomiting Narrative: 59-year-old female with past medical history of COPD, polysubstance abuse who presents to the hospital with complaints of shortness of breath, wheez ing, coughing, sputum production and vomiting. Patient reports that her symptoms started few days ago, worsened today. She has no fever or chills. She has had multiple episode of vomiting nonbloody, no abdominal pain, diarrhea constipation. Patient reports that since being in the hospital she started having chest pain that is midsternal, pressure-like, nonradiating, worse with cough, and reproducible. Patient denies any sick contacts or recent travel. She has such as significant cough that she has developed back and chest wall pain. She has headache for the past 1 week. COVID-19 negative, chest x-ray shows airspace opacity of the left mid to lower lung suspicious for pneumonia. While in the hospital she had an OD on opiods in the bathroom. She has been on Abx x 5 days without significant improvement. She has not improved and Pulmonary consulted. Her CXR were concerning for a complicated LLL airspace consolidation. Therefore a CT chest was requested demonstrating a severe cavi tary pneumonia. Review of Systems Constitutional: Constitutional: Reports body ache(s), Reports fatigue and Reports malaise ENT: Denies change in voice, Denies lip swelling, Denies mouth pain, Reports nasal congestion, Reports nasal discharge and Denies tongue swelling Cardiovascular: Cardiovascular: Denies chest pain Respiratory: Respiratory: Reports cough, Reports pain on inspiration and Reports pain with cough Gastrointestinal: Gastrointestinal: Denies abdominal pain Musculoskeletal: Musculoskeletal: Denies no additional musculoskeletal complaints Neurologic: Denies Neuro-related abnormal movements Psychiatric: Psychiatric: Denies no additional psychiatric complaints Endocrine: Endocrine: Reports fatigue Hematologic/Lymphatic: Hematologic/Lymphatic: Denies easy bleeding and Denies lymphadenopathy Allergic/Immunologic: Allergic/Immunologic: Denies lip swelling and Denies tongue swelling PMFSH Past Medical History Medical History (Updated 06/24/20 @ 20:23 by Jonn Lenz MD) Anxiety Asthma with COPD (chronic obstructive pulmonary disease) Cavitary pneumonia Family History Family History (Updated 06/19/20 @ 04:11 by Daniel Galan DO) Other Family history non-contributory Social History Social History (Updated 06/19/20 @ 04:11 by Daniel Galan DO) Household Members: Spouse Housing: House Do you presently have visiting nurse or other home services: No Smoking Status: Former smoker Use of substances other than those prescribed or required for medical reasons: No Currently Displaying Signs/Symptoms of Drug Intoxication Withdrawal: No Have you been hit, kicked, punched, or otherwise hurt by someone within the past year? If so, by whom?: No Do you feel safe in your current relationship?: Yes Is there a partner from a previous relationship who is making you feel unsafe now?: No Are you made to feel afraid or neglected: No Advance Directives: No Do you have thoughts of harming others: None Do you have a plan to hurt others: No Plan Recently lost weight without trying: No service: No Current occupational status: unemployed Meds Allergies Allergy/AdvReac Type Severity Reaction Status Date / Time No Known Allergies Allergy Verified 06/19/20 13:41 [No Known Allergies*] latex Allergy Unknown rash Uncoded 06/19/20 05:58 Home Medications Medication Instructions Recorded Confirmed Type alprazolam 1 mg PO BID PRN 06/19/20 06/19/20 History fluticasone propionate [Flovent 2 puff INHALATION BID 06/19/20 06/19/20 History HFA] ibuprofen 600 mg PO TID 06/19/20 06/19/20 History ipratropium-albuterol 3 ml INHALATION NEEDED 06/19/20 06/19/20 History sertraline 100 mg PO DAILY 06/19/20 06/19/20 History umeclidinium [Incruse Ellipta] 62.5 mcg INHALATION DAILY 06/19/20 06/19/20 Histo ry Physical Exam Vital Signs: Vital Signs: Last Vital Signs Temp 98.0 F 06/24/20 14:56 Pulse 68 06/24/20 14:56 Resp 20 06/24/20 14:56 BP 156/72 H 06/24/20 14:56 Pulse Ox 95 06/24/20 14:56 Body Mass Index 22.8 Const: General: alert HENMT: General nose exam: Abnormal external nose present and Nasal discharge present Eyes: Pupils: Equal, round and reactive pupils present Neck: Neck: Yes normal visual inspection, Yes full ROM and Yes no lymphadenopathy Chest: Chest palpation & inspection: normal inspection of the chest Resp: Auscultation: diminished lung sounds Cardio: Rate: regular rate Rhythm: regular rhythm Heart sounds: S1 normal heart sound present and S2 normal heart sound present GI: Palpation (GI): Soft to palpation and nontender Auscultation: normal bowel sounds : General: Yes no CVA tenderness Back/Spine/Pelvis: Back: no CVA tenderness Skin: General skin exam: rashes and/or lesions noted Neuro: Cranial nerves: Yes Equal, round and reactive pupils present Results Laboratory Findings CBC and BMP: 06/24/20 05:27 06/24/20 05:27 ABG, PT/INR, D-dimer: ABG ABG pH 7.50 (7.35-7.45) H 06/24/20 11:50 ABG pCO2 46 mmhg (32-45) H 06/24/20 11:50 ABG pO2 72 mmhg (83-108) L 06/24/20 11:50 ABG O2 Saturation 95.6 % 06/24/20 11:50 PT/INR, D-dimer PT 17.0 SEC (10.8-13.0) H 06/19/20 04:05 INR 1.4 (0.9-1.1) H 06/19/20 04:05 Abnormal lab findings: Abnormal Labs 06/19/20 06/19/20 06/19/20 04:05 04:05 04:05 WBC 45.7 H* RBC Hgb Hct Plt Count 456 H Immature Gran % (Auto) Neut % (Auto) Lymph % (Auto) Lymph # (Auto) [place] # (Auto) Abs Immat Gran (auto) Absolute Neuts (auto) Absolute Nucleated RBC Neutrophils % (Manual) 79 H Band Neutrophils % 12 H Lymphocytes % (Manual) 1 L Abs Neuts (Manual) 41.6 H Lymphocytes # (Manual) 0.5 L Monocytes # (Manual) 3.2 H PT 17.0 H INR 1.4 H ABG pH ABG pCO2 ABG pO2 ABG HCO3 Sodium 129 L Chloride 90 L Carbon Dioxide Anion Gap BUN 40 H POC Glucose Random Glucose Calcium 8.2 L Alkaline Phosphatase 152 H Total Protein 6.3 L Albumin 3.1 L Lipase 5 L Urine Opiates Screen U Benzodiazepines Scrn C. difficile Antigen 06/19/20 06/19/20 06/20/20 13:00 13:00 04:52 WBC 36.1 H* 35.8 H* RBC 3.90 L 3.97 L Hgb 11.0 L 10.9 L Hct 33.4 L 33.9 L Plt Count 417 H 452 H Immature Gran % (Auto) 2.9 H 2.8 H Neut % (Auto) 91.5 H 91.9 H Lymph % (Auto) 1.7 L 2.3 L Lymph # (Auto) 0.6 L 0.8 L [place] # (Auto) 1.3 H Abs Immat Gran (auto) 1.04 H 0.99 H Absolute Neuts (auto) 33.0 H 32.9 H Absolute Nucleated RBC Neutrophils % (Manual) Band Neutrophils % Lymphocytes % (Manual) Abs Neuts (Manual) Lymphocytes # (Manual) Monocytes # (Manual) PT INR ABG pH ABG pCO2 ABG pO2 ABG HCO3 Sodium 133 L Chloride Carbon Dioxide Anion Gap BUN 32 H POC Glucose Random Glucose 178 H D Calcium 7.5 L D Alkaline Phosphatase Total Protein Albumin Lipase Urine Opiates Screen U Benzodiazepines Scrn C. difficile Antigen 06/20/20 06/21/20 06/21/20 04:52 06:57 06:57 WBC 29.4 H RBC 3.65 L Hgb 10.2 L Hct 31.6 L Plt Count 483 H Immature Gran % (Auto) Neut % (Auto) Lymph % (Auto) Lymph # (Auto) [place] # (Auto) Abs Immat Gran (auto) Absolute Neuts (auto) Absolute Nucleated RBC Neutrophils % (Manual) Band Neutrophils % Lymphocytes % (Manual) Abs Neuts (Manual) Lymphocytes # (Manual) Monocytes # (Manual) PT INR ABG pH ABG pCO2 ABG pO2 ABG HCO3 Sodium Chloride Carbon Dioxide Anion Gap 10 L BUN 27 H 27 H POC Glucose Random Glucose 173 H 124 H Calcium 7.7 L 7.8 L Alkaline Phosphatase Total Protein Albumin Lipase Urine Opiates Screen U Benzodiazepines Scrn C. difficile Antigen 06/22/20 06/22/20 06/22/20 07:21 13:22 13:39 WBC 25.6 H RBC 3.90 L Hgb 10.7 L Hct 33.3 L Plt Count 538 H Immature Gran % (Auto) Neut % (Auto) Lymph % (Auto) Lymph # (Auto) [place] # (Auto) Abs Immat Gran (auto) Absolute Neuts (auto) Absolute Nucleated RBC 0.020 H Neutrophils % (Manual) Band Neutrophils % Lymphocytes % (Manual) Abs Neuts (Manual) Lymphocytes # (Manual) Monocytes # (Manual) PT INR ABG pH 7.02 L* ABG pCO2 119 H* ABG pO2 ABG HCO3 30 H Sodium Chloride Carbon Dioxide Anion Gap BUN POC Glucose 201 H Random Glucose Calcium Alkaline Phosphatase Total Protein Albumin Lipase Urine Opiates Screen U Benzodiazepines Scrn C. difficile Antigen 06/22/20 06/23/20 06/24/20 18:09 10:05 05:27 WBC 28.5 H RBC 4.16 L Hgb 11.6 L Hct 36.2 L Plt Count 622 H Immature Gran % (Auto) Neut % (Auto) Lymph % (Auto) Lymph # (Auto) [place] # (Auto) Abs Immat Gran (auto) Absolute Neuts (auto) Absolute Nucleated RBC Neutrophils % (Manual) Band Neutrophils % Lymphocytes % (Manual) Abs Neuts (Manual) Lymphocytes # (Manual) Monocytes # (Manual) PT INR ABG pH ABG pCO2 46 H ABG pO2 82 L ABG HCO3 30 H Sodium Chloride Carbon Dioxide Anion Gap BUN POC Glucose Random Glucose Calcium Alkaline Phosphatase Total Protein Albumin Lipase Urine Opiates Screen POSITIVE H U Benzodiazepines Scrn POSITIVE H C. difficile Antigen 06/24/20 06/24/20 06/24/20 05:27 10:25 11:50 WBC RBC Hgb Hct Plt Count Immature Gran % (Auto) Neut % (Auto) Lymph % (Auto) Lymph # (Auto) [place] # (Auto) Abs Immat Gran (auto) Absolute Neuts (auto) Absolute Nucleated RBC Neutrophils % (Manual) Band Neutrophils % Lymphocytes % (Manual) Abs Neuts (Manual) Lymphocytes # (Manual) Monocytes # (Manual) PT INR ABG pH 7.46 H 7.50 H ABG pCO2 53 H 46 H ABG pO2 39 L* 72 L ABG HCO3 37 H 35 H Sodium Chloride Carbon Dioxide 34 H Anion Gap BUN 19 H POC Glucose Random Glucose Calcium 8.2 L Alkaline Phosphatase Total Protein Albumin Lipase Urine Opiates Screen U Benzodiazepines Scrn C. difficile Antigen 06/24/20 15:11 WBC RBC Hgb Hct Plt Count Immature Gran % (Auto) Neut % (Auto) Lymph % (Auto) Lymph # (Auto) [place] # (Auto) Abs Immat Gran (auto) Absolute Neuts (auto) Absolute Nucleated RBC Neutrophils % (Manual) Band Neutrophils % Lymphocytes % (Manual) Abs Neuts (Manual) Lymphocytes # (Manual) Monocytes # (Manual) PT INR ABG pH ABG pCO2 ABG pO2 ABG HCO3 Sodium Chloride Carbon Dioxide Anion Gap BUN POC Glucose Random Glucose Calcium Alkaline Phosphatase Total Protein Albumin Lipase Urine Opiates Screen U Benzodiazepines Scrn C. difficile Antigen Positive A Microbiology: Microbiology 06/19/20 04:07 Blood - Venous Blood Culture - Final Coag negative Staphylococcus 06/19/20 04:07 Blood - Venous Blood Culture - Final No growth after 5 days. Assessment and Plan (1) Cavitary pneumonia: Problem details: cavitary pna some areas suggesting air fluid levels LLL. Status: Acute check HIV Swtich to Zosyn ID consultation Will consider bronchoscopy depending on her response to zosyn and ID input.
[2020-06-24] MEDS: 0.9 % Sodium Chloride 1,000 ML 70 ML IVCONT (21:05)
[2020-06-24] MEDS: vancomycin HCL 750 MG in 0.9 % Sodium Chloride 250 ML 265 MG IV (21:06)
[2020-06-25] VITALS (11 sets, daily range): BP systolic 138–153; BP diastolic 63–72; PULSE 70–94; RESP 18–22; TEMP 36.3–37.3; O2SAT 91–95
[2020-06-25] MEDS: Albuterol/Iprat 2.5/0.5MG 3 ML AMPUL.NEB INHALE ×3 (00:53→12:58)
[2020-06-25] MEDS: Ibuprofen 600 MG TABLET PO (01:22)
[2020-06-25] MEDS: Piperacillin Sodium/Tazobactam 3.375 GM in 0.9 % Sodium Chloride 50 ML IV ×4 (03:12→22:09)
[2020-06-25] MEDS: metroNIDAZOLE/NS 500 MG/100 ML PIGGYBACK 100 MG IV ×3 (03:12→20:49)
[2020-06-25] MEDS: guaiFENesin 100 MG/5 ML LIQUID PO ×3 (05:37→22:57)
[2020-06-25] MEDS: vancomycin HCL 125 MG CAPSULE PO ×4 (05:38→23:11)
[2020-06-25] MEDS: Omeprazole 20 MG CAPSULE.DR PO (05:38)
[2020-06-25 07:53] LABS: HIV AB/AG Nonreactive (Nonreactive); HIV Num 1 0.13 S/CO (0.00-0.99)
[2020-06-25 09:05] LABS: CDiff Gene PCR NEGATIVE (Negative)
[2020-06-25] MEDS: guaiFEN/Codeine SF 200/20/10ML 10 ML LIQUID PO ×2 (12:06→18:47)
[2020-06-25] MEDS: vancomycin HCL 750 MG in 0.9 % Sodium Chloride 250 ML 265 MG IV ×2 (12:13→22:57)
[2020-06-25] MEDS: Sertraline HCL 100 MG TABLET PO (12:14)
[2020-06-25] MEDS: Enoxaparin Sodium 40 MG/0.4 ML SYRINGE SUBCUT (12:14)
[2020-06-25] MEDS: 0.9 % Sodium Chloride Flush 3 ML SYRINGE IVFLUSH ×2 (12:16→16:58)
[2020-06-25] MEDS: ALPRAZolam 0.5 MG TABLET 1 MG PO ×2 (12:23→20:48)
[2020-06-25] MEDS: Acetaminophen 325 MG TABLET 650 MG PO ×2 (12:25→21:05)
--- NOTE | 2020-06-25 13:52 | PM.PNPUL ---
Subjective Subjective Date of Service: 06/25/20 Interval history: The patient was seen and examined. Still having significant pleuritic pain on the left side. Her white count still elevated even on the broad-spectrum antibiotics. Based on her significant findings on the CT scan and her persistent elevation of the white count I will schedule her for bronchoscopy tomorrow. Objective Data Labs CBC & Chem 7: 06/24/20 05:27 06/24/20 05:27 Labs: Laboratory Results - last 24 hr 06/24/20 06/24/20 06/24/20 15:11 15:11 15:59 Stool Leukocytes, Qual NEGATIVE C. difficile Tox B Gene NEGATIVE C. difficile Toxin A&B Negative C. difficile Antigen Positive A C. difficile Interpret PCR to be performed HIV 1&2 Ab/P24 Ag 4thGn Nonreactive Microbiology Microbiology Results: Microbiology 06/24/20 15:11 Stool Stool Culture - Preliminary No growth after 1 day 06/19/20 04:07 Blood - Venous Blood Culture - Final Coag negative Staphylococcus 06/19/20 04:07 Blood - Venous Blood Culture - Final No growth after 5 days. Review of Systems Constitutional: Reports body ache(s), Reports malaise and Denies night sweats Denies change in voice, Denies lip swelling, Denies mouth pain, Reports nasal congestion, Reports nasal discharge and Denies tongue swelling Cardiovascular: Reports chest pain Respiratory: Reports chest congestion, Reports cough and Reports pain with cough Gastrointestinal: Denies abdominal pain Musculoskeletal: Denies no additional musculoskeletal complaints Denies Neuro-related abnormal movements Psychiatric: Denies no additional psychiatric complaints Hematologic/Lymphatic: Denies easy bleeding and Denies lymphadenopathy Allergic/Immunologic: Denies lip swelling and Denies tongue swelling Physical Exam Vital Signs: Vital Signs: Last Vital Signs Temp 97.4 F 06/25/20 11:18 Pulse 90 06/25/20 13:00 Resp 22 H 06/25/20 11:18 BP 144/69 H 06/25/20 11:18 Pulse Ox 92 06/25/20 11:18 Body Mass Index 22.8 Const: General: alert HENMT: General nose exam: Abnormal external nose present and Nasal discharge present Eyes: Pupils: Equal, round and reactive pupils present Neck: Neck: Yes normal visual inspection, Yes full ROM and Yes no lymphadenopathy Chest: Chest palpation & inspection: normal inspection of the chest Resp: Auscultation: crackles and diminished lung sounds Cardio: Rate: regular rate Rhythm: regular rhythm Heart sounds: S1 normal heart sound present and S2 normal heart sound present GI: Palpation (GI): Soft to palpation and nontender Auscultation: normal bowel sounds : General: Yes no CVA tenderness Back/Spine/Pelvis: Back: no CVA tenderness Skin: General skin exam: rashes and/or lesions noted Neuro: Cranial nerves: Yes Equal, round and reactive pupils present Assessment and Plan Assessment and plan (1) Cavitary pneumonia: Problem details: cavitary pna some areas suggesting air fluid levels LLL. Status: Acute Assessment and Plan: Continue IV antibiotics Plan for bronchoscopy tomorrow. Still waiting for time. Please make sure the patient is NPO after midnight. Time Spent With Patient Time: Total time spent is greater than 50% in coordination of care (as documented) at patient's floor/unit and/or counseling patient: Time with patient: 15 - 24 minutes
--- NOTE | 2020-06-25 15:25 | MHC.CM.PN ---
Female 59 DP originally home no services. CM will follow for change in DC needs. Family will provide transportation.
--- NOTE | 2020-06-25 16:18 | PC.NURSE ---
Patient seen by Dr Lenz - order to be NPO after midnight for bronch tomorrow. Patient medicated w/ prn robitussin w/ codeine. Lethargic, but cooperative w/ care. OOB to commode x 1-2 for small amt loose brown stool.
--- NOTE | 2020-06-25 17:45 | HO.PM.IMPN ---
Subjective Subjective Date of Service: 06/25/20 Interval History: Acute hypoxemic//hypercarbic respiratory failure: Due to left-sided pneumo pneumonia/abscess Review of Systems Patient says shortness of breath is slightly better than yesterday denies any chest pain but has some pleuritic discomfort Denies any abdominal pain, diarrhea seems slightly better than yesterday Physical Exam Vital Signs: Vital Signs: Last Vital Signs Temp 98.5 F 06/25/20 16:00 Pulse 82 06/25/20 16:00 Resp 18 06/25/20 16:00 BP 142/71 H 06/25/20 16:00 Pulse Ox 92 06/25/20 16:00 Body Mass Index 22.8 Physical exam: Cvs: rrr, [id number] , no murmur res: Diminished breath sounds specially in the last left side more than right, as few rhonchi on the left lower lobe. abd: no rebound or guarding ,nt, bs present. ext pulses present , no cyanosis neuro: axo3 , nonfocal. Objective Data Current Medications Generic Name Dose Route Start Last Admin Trade Name Ramsesq PRN Reason Stop Dose Admin Acetaminophen 650 mg 06/19/20 11:55 06/25/20 12:25 Acetaminophen 325 Mg Tablet PO 650 mg Q6H PRN Administration Pain, Mild (Pain Scale 1-3) Albuterol/Ipratropium 3 ml 06/19/20 11:55 06/25/20 00:53 Albuterol/Iprat 2.5/0.5mg 3 Ml Ampul.Neb INHALE 3 ml Q2H PRN Administration Shortness of Breath/Wheezing Albuterol/Ipratropium 3 ml 06/19/20 11:55 06/25/20 12:58 Albuterol/Iprat 2.5/0.5mg 3 Ml Ampul.Neb INHALE 3 ml RQ6H WHILE AWAKE GURWINDER Administration Alprazolam 1 mg 06/19/20 11:55 06/25/20 12:23 Alprazolam 0.5 Mg Tablet PO 1 mg BID PRN Administration Anxiety Clonidine HCl 0.1 mg 06/24/20 10:14 06/24/20 10:39 Clonidine Hcl 0.1 Mg Tablet PO 0.1 mg BID PRN Administration anxiety/restlessness Protocol Docusate Sodium 100 mg 06/19/20 11:55 Docusate Sodium 100 Mg Capsule PO DAILY PRN Constipation Enoxaparin Sodium 40 mg 06/19/20 11:55 06/25/20 12:14 Enoxaparin Sodium 40 Mg/0.4 Ml Syringe SUBCUT 40 mg Q24H GURWINDER Administration Guaifenesin 5 ml 06/23/20 00:18 06/23/20 00:29 Guaifenesin 100 Mg/5 Ml Liquid PO 5 ml Q6H PRN Administration Cough Guaifenesin 5 ml 06/23/20 11:30 06/25/20 16:58 Guaifenesin 100 Mg/5 Ml Liquid PO 5 ml Q6H GURWINDER Administration Guaifenesin/Codeine Phosphate 5 ml 06/22/20 12:58 Guaifen/Codeine Sf 200/20/10ml 10 Ml Liquid PO Q4H PRN Cough Guaifenesin/Codeine Phosphate 10 ml 06/23/20 18:57 06/25/20 12:06 Guaifen/Codeine Sf 200/20/10ml 10 Ml Liquid PO 10 ml Q4H PRN Administration Cough Guaifenesin/Dextromethorphan 5 ml 06/21/20 03:55 06/22/20 09:28 Guaifenesin Dm 100/10/5 Ml 5 Ml Syrup PO 5 ml Q6H PRN Administration Cough Piperacillin Sod/Tazobactam 50 mls @ 100 mls/hr 06/24/20 16:00 06/25/20 16:57 Sod 3.375 gm/ Sodium Chloride IV 100 mls/hr Q6H GURWINDER Administration Metronidazole 500 mg in 100 mls @ 100 mls/hr 06/24/20 20:00 06/25/20 13:55 Flagyl IV Infused Q8H GURWINDER Infusion Vancomycin HCl 750 mg/ Sodium 265 mls @ 265 mls/hr 06/24/20 22:00 06/25/20 13:55 Chloride IV Infused Q12H GURWINDER Infusion Ketorolac Tromethamine 15 mg 06/19/20 12:19 06/22/20 12:09 Ketorolac Tromethamine 15 Mg/Ml Vial IVPUSH 15 mg Q6H PRN Administration Pain, Moderate (Pain Scale 4-6 Methylprednisolone Sodium Succinate 40 mg 06/19/20 11:55 06/25/20 12:13 Methylprednisolone Sod Succ/Pf 40 Mg/Ml Vial IVPUSH 40 mg Q12H GURWINDER Administration Omeprazole 20 mg 06/24/20 06:30 06/25/20 05:38 Omeprazole 20 Mg Capsule. PO 20 mg DAILY@0630 GURWINDER Administration Ondansetron HCl 4 mg 06/19/20 11:55 Ondansetron Hcl 4 Mg/2 Ml Vial IVPUSH Q8H PRN Nausea and Vomiting Ondansetron HCl 4 mg 06/24/20 14:30 06/24/20 14:57 Ondansetron Hcl 4 Mg/2 Ml Vial IVPUSH 4 mg Q6H PRN Administration Nausea Sertraline HCl 100 mg 06/19/20 11:55 06/25/20 12:14 Sertraline Hcl 100 Mg Tablet PO 100 mg DAILY GURWINDER Administration Sodium Chloride 3 ml 06/19/20 11:55 06/25/20 16:58 0.9 % Sodium Chloride Flush 3 Ml Syringe IVFLUSH 3 ml QSHIFT GURWINDER Administration Vancomycin HCl 125 mg 06/24/20 18:15 06/25/20 12:14 Vancomycin Hcl 125 Mg Capsule PO 125 mg Q6H GURWINDER Administration Labs CBC & Chem 7: 06/24/20 05:27 06/24/20 05:27 Microbiology Microbiology Results: Microbiology 06/24/20 15:11 Stool Stool Culture - Preliminary No growth after 1 day 06/19/20 04:07 Blood - Venous Blood Culture - Final Coag negative Staphylococcus 06/19/20 04:07 Blood - Venous Blood Culture - Final No growth after 5 days. Assessment and Plan (1) Cavitary pneumonia: Problem details: cavitary pna some areas suggesting air fluid levels LLL. Status: Acute (2) Leukocytosis: Status: Acute (3) Pneumonia: Status: Acute (4) COPD exacerbation: Status: Acute Assessment and Plan: 59-year-old female with past medical history of COPD / asthma who presents to the hospital with shortness of breath. Chest x-ray reveals infiltrate. 1. Acute metabolic toxic encephalopathy/acute at acute hypoxemic respiratory failure: Probably related to heroin overdose Leukocytosis is slightly trending up 1/2 set of blood culture came out to be staph aureus coagulae negative. Repeat blood cultures sent yesterday Will continue to monitor patient on tele Added HIV neg Patient will need BHN clearance since unclear why used heroin even though she is denying Urine toxicology -positive for opioid and benzodiazepine. Pulmonary and ID saw the patient-continue IV Vanco and Zosyn and will monitor Vanco trough and patient will be NPO past midnight for possible bronchoscopy in the morning. 2.COPD / asthma exacerbation: dyspnea, wheezing, cough, sputum production chest x-ray showing pneumonia continue Solu-Medrol, DuoNeb q.i.d. and p.r.n. O2 supplement as required abg seems improving In addition patient was complaining of chest pains tightness: Which was pleuritic and reproducible EKG nsr and troponin seems negative. 3. hyponatremia--seems normalised , thought to be related to: likely from SSRI, sodium level is now better. Will see what nephrology has to say 5. anxiety: p.r.n. hydroxyzine. 6. Diarrahae: Question C diff positive Will continue p.o. Vanco, IV Flagyl. ID follow-up: Adjust antibiotics above if needed.
[2020-06-25] MEDS: 0.9 % Sodium Chloride 500 ML IV (18:48)
[2020-06-25] MEDS: 0.9 % Sodium Chloride 1,000 ML 70 ML IVCONT (20:49)
[2020-06-26] VITALS (14 sets, daily range): BP systolic 120–179; BP diastolic 37–78; PULSE 77–121; RESP 12–32; TEMP 36.7–37.6; O2SAT 90–98
[2020-06-26] MEDS: cloNIDine HCL 0.1 MG TABLET PO (02:09)
--- NOTE | 2020-06-26 03:55 | ECG_ITS ---
Test Reason : CHESTPAIN Blood Pressure : / mmHG Vent. Rate : 093 BPM Atrial Rate : 093 BPM P-R Int : 102 ms QRS Dur : 074 ms QT Int : 356 ms P-R-T Axes : 070 033 038 degrees QTc Int : 442 ms Sinus rhythm with short AL Possible Left atrial enlargement Borderline ECG When compared to the previous EKG of No significant changes seen Referred By: Ignacio Piedra Electronically Signed By:KRISTAL VILLARREAL MD
[2020-06-26] MEDS: Piperacillin Sodium/Tazobactam 3.375 GM in 0.9 % Sodium Chloride 50 ML IV ×4 (04:09→21:11)
[2020-06-26] MEDS: metroNIDAZOLE/NS 500 MG/100 ML PIGGYBACK 100 MG IV ×2 (04:51→19:54)
[2020-06-26] MEDS: guaiFENesin 100 MG/5 ML LIQUID PO ×3 (05:43→22:49)
[2020-06-26] MEDS: vancomycin HCL 125 MG CAPSULE PO ×2 (05:43→18:15)
[2020-06-26] MEDS: ALPRAZolam 0.5 MG TABLET 1 MG PO ×2 (05:43→19:54)
[2020-06-26] MEDS: Omeprazole 20 MG CAPSULE.DR PO (05:43)
[2020-06-26 06:25] LABS: Hematocrit 41.2 % (37-47); Hemoglobin 13.1 g/dl (12.0-16.0); Mean Corpuscular HGB Conc 31.8 g/dl (31.0-35.0); Mean Corpuscular Hemoglobin 27.5 pg (27.0-33.0); Mean Corpuscular Volume 86.4 fL (80-98); Mean Platelet Volume 9.8 fL (9.4-12.3); Platelet Count 645 X10*3/uL (160-400); Red Blood Count 4.77 X10*6/uL (4.20-5.50); Red Cell Distribution Width 12.9 % (11.0-16.0)
[2020-06-26 06:41] LABS: White Blood Count 63.8 X10*3/uL (4.8-10.8)
[2020-06-26 06:48] LABS: Anion Gap 12 (12-20); Blood Urea Nitrogen 22 mg/dL (9-16); Calcium 7.7 mg/dL (8.4-10.2); Carbon Dioxide 30 mmol/L (22-29); Chloride 103 mmol/L (96-108); Creatinine Clr Calc Pharmacy 81.8; Estimated Glomerular Filt Rate > 60; Glucose Random 130 mg/dL (60-115); Potassium 4.4 mmol/l (3.3-5.1); Sodium 141 mmol/L (135-145)
[2020-06-26 06:54] LABS: Anion Gap 12 (12-20); Blood Urea Nitrogen 23 mg/dL (9-16); Calcium 7.8 mg/dL (8.4-10.2); Carbon Dioxide 30 mmol/L (22-29); Chloride 103 mmol/L (96-108); Creatinine Clr Calc Pharmacy 80.4; Estimated Glomerular Filt Rate > 60; Glucose Random 133 mg/dL (60-115); Potassium 4.4 mmol/l (3.3-5.1); Sodium 141 mmol/L (135-145)
[2020-06-26] MEDS: Albuterol/Iprat 2.5/0.5MG 3 ML AMPUL.NEB INHALE ×2 (07:58→13:28)
[2020-06-26 10:31] LABS: Vancomycin Trough 6.9 mcg/mL (10.0-20.0)
[2020-06-26] MEDS: Enoxaparin Sodium 40 MG/0.4 ML SYRINGE SUBCUT (11:42)
[2020-06-26] MEDS: 0.9 % Sodium Chloride Flush 3 ML SYRINGE IVFLUSH ×3 (11:42→22:49)
--- NOTE | 2020-06-26 13:03 | P.CONAN_ITS ---
[facility] Past Medical History Medical History Anxiety Asthma with COPD (chronic obstructive pulmonary disease) Cavitary pneumonia Family History Family History Other Family history non-contributory Social History Social History Household Members: Spouse Housing: House Do you presently have visiting nurse or other home services: No Smoking Status: Former smoker Use of substances other than those prescribed or required for medical reasons: Yes Substance Use Type Other:: denies use Currently Displaying Signs/Symptoms of Drug Intoxication Withdrawal: No Have you been hit, kicked, punched, or otherwise hurt by someone within the past year? If so, by whom?: No Do you feel safe in your current relationship?: Yes Is there a partner from a previous relationship who is making you feel unsafe now?: No Are you made to feel afraid or neglected: No Advance Directives: No Do you have thoughts of harming others: None Do you have a plan to hurt others: No Plan Recently lost weight without trying: Unsure service: No Current occupational status: unemployed Meds Allergies Allergy/AdvReac Type Severity Reaction Status Date / Time No Known Allergies Allergy Verified 06/19/20 13:41 [No Known Allergies*] latex Allergy Unknown rash Uncoded 06/19/20 05:58 Home Medications Medication Instructions Recorded Confirmed Type alprazolam 1 mg PO BID PRN 06/19/20 06/19/20 History fluticasone propionate [Flovent 2 puff INHALATION BID 06/19/20 06/19/20 History HFA] ibuprofen 600 mg PO TID 06/19/20 06/19/20 History ipratropium-albuterol 3 ml INHALATION NEEDED 06/19/20 06/19/20 History sertraline 100 mg PO DAILY 06/19/20 06/19/20 History umeclidinium [Incruse Ellipta] 62.5 mcg INHALATION DAILY 06/19/20 06/19/20 History Exam Exam Date and Time: June 26, 2020 1303 Height,Weight and Vital Signs: Height 5 ft 2 in Weight 56.699 kg Last Vital Signs Temp 99.6 F 06/26/20 12:10 Pulse 87 06/26/20 12:10 Resp 32 H 06/26/20 12:10 BP 144/67 H 06/26/20 08:00 Pulse Ox 92 06/26/20 08:00 Pertinent Lab Results Pertinent Lab Results: Laboratory Tests 06/19/20 06/19/20 06/19/20 04:05 04:05 04:05 WBC 45.7 H* RBC 4.38 Hgb 12.4 Hct 37.6 MCV 85.8 MCH 28.3 MCHC 33.0 RDW 12.2 Plt Count 456 H MPV 9.9 Immature Gran % (Auto) Cancelled Neut % (Auto) Cancelled Lymph % (Auto) Cancelled [place] % (Auto) Cancelled Eos % (Auto) Cancelled Baso % (Auto) Cancelled Lymph # (Auto) Cancelled [place] # (Auto) Cancelled Eos # (Auto) Cancelled Baso # (Auto) Cancelled Abs Immat Gran (auto) Cancelled Absolute Neuts (auto) Cancelled Absolute Nucleated RBC 0.000 Nucleated RBC % (auto) 0.0 Neutrophils % (Manual) 79 H Band Neutrophils % 12 H Lymphocytes % (Manual) 1 L Monocytes % (Manual) 7 Metamyelocytes % 1 Abs Neuts (Manual) 41.6 H Lymphocytes # (Manual) 0.5 L Monocytes # (Manual) 3.2 H Metamyelocytes # 0.5 Toxic Vacuolation PRESENT Platelet Estimate NORMAL Plt Morphology Comment NORMAL RBC Morphology NORMAL Smear Tech's Comments Smear Path Review SEE NOTE PT 17.0 H INR 1.4 H APTT 29.8 ABG pH ABG pCO2 ABG pO2 ABG HCO3 ABG O2 Saturation ABG Base Excess Oxygen Given Sodium 129 L Potassium 4.4 Chloride 90 L Carbon Dioxide 26 Anion Gap 17 BUN 40 H Creatinine 0.89 Estim Creat Clear Calc 55.1 Estimated GFR > 60 POC Glucose Random Glucose 97 Lactic Acid Calcium 8.2 L Total Bilirubin 0.6 Direct Bilirubin 0.5 AST 22 ALT 19 Alkaline Phosphatase 152 H Troponin I High Sens B-Natriuretic Peptide Total Protein 6.3 L Albumin 3.1 L Lipase 5 L Stool Leukocytes, Qual Vancomycin Trough Urine Opiates Screen Ur Barbiturates Screen Ur Phencyclidine Scrn Ur Amphetamines Screen U Benzodiazepines Scrn Urine Cocaine Screen U Marijuana (THC) Screen C. difficile Tox B Gene C. difficile Toxin A&B C. difficile Antigen C. difficile Interpret Coronavirus (PCR) HIV 1&2 Ab/P24 Ag 4thGn Influenza Type A (PCR) Influenza Type B (PCR) RSV RNA Qual (PCR) 06/19/20 06/19/20 06/19/20 04:05 04:05 04:05 WBC RBC Hgb Hct MCV MCH MCHC RDW Plt Count MPV Immature Gran % (Auto) Neut % (Auto) Lymph % (Auto) [place] % (Auto) Eos % (Auto) Baso % (Auto) Lymph # (Auto) [place] # (Auto) Eos # (Auto) Baso # (Auto) Abs Immat Gran (auto) Absolute Neuts (auto) Absolute Nucleated RBC Nucleated RBC % (auto) Neutrophils % (Manual) Band Neutrophils % Lymphocytes % (Manual) Monocytes % (Manual) Metamyelocytes % Abs Neuts (Manual) Lymphocytes # (Manual) Monocytes # (Manual) Metamyelocytes # Toxic Vacuolation Platelet Estimate Plt Morphology Comment RBC Morphology Smear Tech's Comments Smear Path Review PT INR APTT ABG pH ABG pCO2 ABG pO2 ABG HCO3 ABG O2 Saturation ABG Base Excess Oxygen Given Sodium Potassium Chloride Carbon Dioxide Anion Gap BUN Creatinine Estim Creat Clear Calc Estimated GFR POC Glucose Random Glucose Lactic Acid 1.2 Calcium Total Bilirubin Direct Bilirubin AST ALT Alkaline Phosphatase Troponin I High Sens 14.9 B-Natriuretic Peptide 35 Total Protein Albumin Lipase Stool Leukocytes, Qual Vancomycin Trough Urine Opiates Screen Ur Barbiturates Screen Ur Phencyclidine Scrn Ur Amphetamines Screen U Benzodiazepines Scrn Urine Cocaine Screen U Marijuana (THC) Screen C. difficile Tox B Gene C. difficile Toxin A&B C. difficile Antigen C. difficile Interpret Coronavirus (PCR) NEGATIVE HIV 1&2 Ab/P24 Ag 4thGn Influenza Type A (PCR) NEGATIVE Influenza Type B (PCR) NEGATIVE RSV RNA Qual (PCR) NEGATIVE 06/19/20 06/19/20 06/19/20 06:20 13:00 13:00 WBC 36.1 H* RBC 3.90 L Hgb 11.0 L Hct 33.4 L MCV 85.6 MCH 28.2 MCHC 32.9 RDW 12.2 Plt Count 417 H MPV 9.9 Immature Gran % (Auto) 2.9 H Neut % (Auto) 91.5 H Lymph % (Auto) 1.7 L [place] % (Auto) 3.5 Eos % (Auto) 0.1 Baso % (Auto) 0.3 Lymph # (Auto) 0.6 L [place] # (Auto) 1.3 H Eos # (Auto) 0.0 Baso # (Auto) 0.1 Abs Immat Gran (auto) 1.04 H Absolute Neuts (auto) 33.0 H Absolute Nucleated RBC 0.000 Nucleated RBC % (auto) 0.0 Neutrophils % (Manual) Band Neutrophils % Lymphocytes % (Manual) Monocytes % (Manual) Metamyelocytes % Abs Neuts (Manual) Lymphocytes # (Manual) Monocytes # (Manual) Metamyelocytes # Toxic Vacuolation Platelet Estimate Plt Morphology Comment RBC Morphology Smear Tech's Comments VERIFIED Smear Path Review PT INR APTT ABG pH ABG pCO2 ABG pO2 ABG HCO3 ABG O2 Saturation ABG Base Excess Oxygen Given Sodium 133 L Potassium 3.6 Chloride 101 Carbon Dioxide 23 Anion Gap 13 BUN 32 H Creatinine 0.76 Estim Creat Clear Calc 64.5 Estimated GFR > 60 POC Glucose Random Glucose 178 H D Lactic Acid Calcium 7.5 L D Total Bilirubin Direct Bilirubin AST ALT Alkaline Phosphatase Troponin I High Sens 12.2 B-Natriuretic Peptide Total Protein Albumin Lipase Stool Leukocytes, Qual Vancomycin Trough Urine Opiates Screen Ur Barbiturates Screen Ur Phencyclidine Scrn Ur Amphetamines Screen U Benzodiazepines Scrn Urine Cocaine Screen U Marijuana (THC) Screen C. difficile Tox B Gene C. difficile Toxin A&B C. difficile Antigen C. difficile Interpret Coronavirus (PCR) HIV 1&2 Ab/P24 Ag 4thGn Influenza Type A (PCR) Influenza Type B (PCR) RSV RNA Qual (PCR) 06/20/20 06/20/20 06/21/20 04:52 04:52 06:57 WBC 35.8 H* 29.4 H RBC 3.97 L 3.65 L Hgb 10.9 L 10.2 L Hct 33.9 L 31.6 L MCV 85.4 86.6 MCH 27.5 27.9 MCHC 32.2 32.3 RDW 12.2 12.6 Plt Count 452 H 483 H MPV 9.8 9.7 Immature Gran % (Auto) 2.8 H Neut % (Auto) 91.9 H Lymph % (Auto) 2.3 L [place] % (Auto) 2.8 Eos % (Auto) 0.0 Baso % (Auto) 0.2 Lymph # (Auto) 0.8 L [place] # (Auto) 1.0 Eos # (Auto) 0.0 Baso # (Auto) 0.1 Abs Immat Gran (auto) 0.99 H Absolute Neuts (auto) 32.9 H Absolute Nucleated RBC 0.000 0.000 Nucleated RBC % (auto) 0.0 0.0 Neutrophils % (Manual) Band Neutrophils % Lymphocytes % (Manual) Monocytes % (Manual) Metamyelocytes % Abs Neuts (Manual) Lymphocytes # (Manual) Monocytes # (Manual) Metamyelocytes # Toxic Vacuolation Platelet Estimate Plt Morphology Comment RBC Morphology Smear Tech's Comments VERIFIED Smear Path Review PT INR APTT ABG pH ABG pCO2 ABG pO2 ABG HCO3 ABG O2 Saturation ABG Base Excess Oxygen Given Sodium 137 Potassium 3.6 Chloride 105 Carbon Dioxide 23 Anion Gap 13 BUN 27 H Creatinine 0.69 Estim Creat Clear Calc 71.1 Estimated GFR > 60 POC Glucose Random Glucose 173 H Lactic Acid Calcium 7.7 L Total Bilirubin Direct Bilirubin AST ALT Alkaline Phosphatase Troponin I High Sens B-Natriuretic Peptide Total Protein Albumin Lipase Stool Leukocytes, Qual Vancomycin Trough Urine Opiates Screen Ur Barbiturates Screen Ur Phencyclidine Scrn Ur Amphetamines Screen U Benzodiazepines Scrn Urine Cocaine Screen U Marijuana (THC) Screen C. difficile Tox B Gene C. difficile Toxin A&B C. difficile Antigen C. difficile Interpret Coronavirus (PCR) HIV 1&2 Ab/P24 Ag 4thGn Influenza Type A (PCR) Influenza Type B (PCR) RSV RNA Qual (PCR) 06/21/20 06/22/20 06/22/20 06:57 07:21 13:22 WBC 25.6 H RBC 3.90 L Hgb 10.7 L Hct 33.3 L MCV 85.4 MCH 27.4 MCHC 32.1 RDW 12.7 Plt Count 538 H MPV 9.5 Immature Gran % (Auto) Neut % (Auto) Lymph % (Auto) [place] % (Auto) Eos % (Auto) Baso % (Auto) Lymph # (Auto) [place] # (Auto) Eos # (Auto) Baso # (Auto) Abs Immat Gran (auto) Absolute Neuts (auto) Absolute Nucleated RBC 0.020 H Nucleated RBC % (auto) 0.1 Neutrophils % (Manual) Band Neutrophils % Lymphocytes % (Manual) Monocytes % (Manual) Metamyelocytes % Abs Neuts (Manual) Lymphocytes # (Manual) Monocytes # (Manual) Metamyelocytes # Toxic Vacuolation Platelet Estimate Plt Morphology Comment RBC Morphology Smear Tech's Comments Smear Path Review PT INR APTT ABG pH ABG pCO2 ABG pO2 ABG HCO3 ABG O2 Saturation ABG Base Excess Oxygen Given Sodium 139 Potassium 4.4 D Chloride 105 Carbon Dioxide 28 Anion Gap 10 L BUN 27 H Creatinine 0.61 Estim Creat Clear Calc 80.4 Estimated GFR > 60 POC Glucose 201 H Random Glucose 124 H Lactic Acid Calcium 7.8 L Total Bilirubin Direct Bilirubin AST ALT Alkaline Phosphatase Troponin I High Sens B-Natriuretic Peptide Total Protein Albumin Lipase Stool Leukocytes, Qual Vancomycin Trough Urine Opiates Screen Ur Barbiturates Screen Ur Phencyclidine Scrn Ur Amphetamines Screen U Benzodiazepines Scrn Urine Cocaine Screen U Marijuana (THC) Screen C. difficile Tox B Gene C. difficile Toxin A&B C. difficile Antigen C. difficile Interpret Coronavirus (PCR) HIV 1&2 Ab/P24 Ag 4thGn Influenza Type A (PCR) Influenza Type B (PCR) RSV RNA Qual (PCR) 06/22/20 06/22/20 06/23/20 13:39 18:09 10:05 WBC RBC Hgb Hct MCV MCH MCHC RDW Plt Count MPV Immature Gran % (Auto) Neut % (Auto) Lymph % (Auto) [place] % (Auto) Eos % (Auto) Baso % (Auto) Lymph # (Auto) [place] # (Auto) Eos # (Auto) Baso # (Auto) Abs Immat Gran (auto) Absolute Neuts (auto) Absolute Nucleated RBC Nucleated RBC % (auto) Neutrophils % (Manual) Band Neutrophils % Lymphocytes % (Manual) Monocytes % (Manual) Metamyelocytes % Abs Neuts (Manual) Lymphocytes # (Manual) Monocytes # (Manual) Metamyelocytes # Toxic Vacuolation Platelet Estimate Plt Morphology Comment RBC Morphology Smear Tech's Comments Smear Path Review PT INR APTT ABG pH 7.02 L* 7.44 ABG pCO2 119 H* 46 H ABG pO2 88 82 L ABG HCO3 30 H 30 H ABG O2 Saturation 92.1 96.7 ABG Base Excess -3.9 5.2 Oxygen Given 100% 2 L Sodium Potassium Chloride Carbon Dioxide Anion Gap BUN Creatinine Estim Creat Clear Calc Estimated GFR POC Glucose Random Glucose Lactic Acid Calcium Total Bilirubin Direct Bilirubin AST ALT Alkaline Phosphatase Troponin I High Sens B-Natriuretic Peptide Total Protein Albumin Lipase Stool Leukocytes, Qual Vancomycin Trough Urine Opiates Screen POSITIVE H Ur Barbiturates Screen Not Detected Ur Phencyclidine Scrn Not Detected Ur Amphetamines Screen Not Detected U Benzodiazepines Scrn POSITIVE H Urine Cocaine Screen Not Detected U Marijuana (THC) Screen Not Detected C. difficile Tox B Gene C. difficile Toxin A&B C. difficile Antigen C. difficile Interpret Coronavirus (PCR) HIV 1&2 Ab/P24 Ag 4thGn Influenza Type A (PCR) Influenza Type B (PCR) RSV RNA Qual (PCR) 06/23/20 06/24/20 06/24/20 12:54 05:27 05:27 WBC 28.5 H RBC 4.16 L Hgb 11.6 L Hct 36.2 L MCV 87.0 MCH 27.9 MCHC 32.0 RDW 12.7 Plt Count 622 H MPV 9.5 Immature Gran % (Auto) Neut % (Auto) Lymph % (Auto) [place] % (Auto) Eos % (Auto) Baso % (Auto) Lymph # (Auto) [place] # (Auto) Eos # (Auto) Baso # (Auto) Abs Immat Gran (auto) Absolute Neuts (auto) Absolute Nucleated RBC 0.000 Nucleated RBC % (auto) 0.0 Neutrophils % (Manual) Band Neutrophils % Lymphocytes % (Manual) Monocytes % (Manual) Metamyelocytes % Abs Neuts (Manual) Lymphocytes # (Manual) Monocytes # (Manual) Metamyelocytes # Toxic Vacuolation Platelet Estimate Plt Morphology Comment RBC Morphology Smear Tech's Comments Smear Path Review PT INR APTT ABG pH ABG pCO2 ABG pO2 ABG HCO3 ABG O2 Saturation ABG Base Excess Oxygen Given Sodium 140 Potassium 4.9 Chloride 98 Carbon Dioxide 34 H Anion Gap 13 BUN 19 H Creatinine 0.60 Estim Creat Clear Calc 81.8 Estimated GFR > 60 POC Glucose Random Glucose 114 Lactic Acid Calcium 8.2 L Total Bilirubin Direct Bilirubin AST ALT Alkaline Phosphatase Troponin I High Sens 6.6 B-Natriuretic Peptide Total Protein Albumin Lipase Stool Leukocytes, Qual Vancomycin Trough Urine Opiates Screen Ur Barbiturates Screen Ur Phencyclidine Scrn Ur Amphetamines Screen U Benzodiazepines Scrn Urine Cocaine Screen U Marijuana (THC) Screen C. difficile Tox B Gene C. difficile Toxin A&B C. difficile Antigen C. difficile Interpret Coronavirus (PCR) HIV 1&2 Ab/P24 Ag 4thGn Influenza Type A (PCR) Influenza Type B (PCR) RSV RNA Qual (PCR) 06/24/20 06/24/20 06/24/20 10:25 11:50 15:11 WBC RBC Hgb Hct MCV MCH MCHC RDW Plt Count MPV Immature Gran % (Auto) Neut % (Auto) Lymph % (Auto) [place] % (Auto) Eos % (Auto) Baso % (Auto) Lymph # (Auto) [place] # (Auto) Eos # (Auto) Baso # (Auto) Abs Immat Gran (auto) Absolute Neuts (auto) Absolute Nucleated RBC Nucleated RBC % (auto) Neutrophils % (Manual) Band Neutrophils % Lymphocytes % (Manual) Monocytes % (Manual) Metamyelocytes % Abs Neuts (Manual) Lymphocytes # (Manual) Monocytes # (Manual) Metamyelocytes # Toxic Vacuolation Platelet Estimate Plt Morphology Comment RBC Morphology Smear Tech's Comments Smear Path Review PT INR APTT ABG pH 7.46 H 7.50 H ABG pCO2 53 H 46 H ABG pO2 39 L* 72 L ABG HCO3 37 H 35 H ABG O2 Saturation 74.6 95.6 ABG Base Excess 10.8 10.3 Oxygen Given 2 L 2 L Sodium Potassium Chloride Carbon Dioxide Anion Gap BUN Creatinine Estim Creat Clear Calc Estimated GFR POC Glucose Random Glucose Lactic Acid Calcium Total Bilirubin Direct Bilirubin AST ALT Alkaline Phosphatase Troponin I High Sens B-Natriuretic Peptide Total Protein Albumin Lipase Stool Leukocytes, Qual NEGATIVE Vancomycin Trough Urine Opiates Screen Ur Barbiturates Screen Ur Phencyclidine Scrn Ur Amphetamines Screen U Benzodiazepines Scrn Urine Cocaine Screen U Marijuana (THC) Screen C. difficile Tox B Gene C. difficile Toxin A&B C. difficile Antigen C. difficile Interpret Coronavirus (PCR) HIV 1&2 Ab/P24 Ag 4thGn Influenza Type A (PCR) Influenza Type B (PCR) RSV RNA Qual (PCR) 06/24/20 06/24/20 06/26/20 15:11 15:59 05:34 WBC RBC Hgb Hct MCV MCH MCHC RDW Plt Count MPV Immature Gran % (Auto) Neut % (Auto) Lymph % (Auto) [place] % (Auto) Eos % (Auto) Baso % (Auto) Lymph # (Auto) [place] # (Auto) Eos # (Auto) Baso # (Auto) Abs Immat Gran (auto) Absolute Neuts (auto) Absolute Nucleated RBC Nucleated RBC % (auto) Neutrophils % (Manual) Band Neutrophils % Lymphocytes % (Manual) Monocytes % (Manual) Metamyelocytes % Abs Neuts (Manual) Lymphocytes # (Manual) Monocytes # (Manual) Metamyelocytes # Toxic Vacuolation Platelet Estimate Plt Morphology Comment RBC Morphology Smear Tech's Comments Smear Path Review PT INR APTT ABG pH ABG pCO2 ABG pO2 ABG HCO3 ABG O2 Saturation ABG Base Excess Oxygen Given Sodium 141 Potassium 4.4 Chloride 103 Carbon Dioxide 30 H Anion Gap 12 BUN 23 H Creatinine 0.61 Estim Creat Clear Calc 80.4 Estimated GFR > 60 POC Glucose Random Glucose 133 H Lactic Acid Calcium 7.8 L Total Bilirubin Direct Bilirubin AST ALT Alkaline Phosphatase Troponin I High Sens B-Natriuretic Peptide Total Protein Albumin Lipase Stool Leukocytes, Qual Vancomycin Trough Urine Opiates Screen Ur Barbiturates Screen Ur Phencyclidine Scrn Ur Amphetamines Screen U Benzodiazepines Scrn Urine Cocaine Screen U Marijuana (THC) Screen C. difficile Tox B Gene NEGATIVE C. difficile Toxin A&B Negative C. difficile Antigen Positive A C. difficile Interpret PCR to be performed Coronavirus (PCR) HIV 1&2 Ab/P24 Ag 4thGn Nonreactive Influenza Type A (PCR) Influenza Type B (PCR) RSV RNA Qual (PCR) 06/26/20 06/26/20 06/26/20 05:34 05:34 08:56 WBC 63.8 H* RBC 4.77 Hgb 13.1 Hct 41.2 MCV 86.4 MCH 27.5 MCHC 31.8 RDW 12.9 Plt Count 645 H MPV 9.8 Immature Gran % (Auto) Neut % (Auto) Lymph % (Auto) [place] % (Auto) Eos % (Auto) Baso % (Auto) Lymph # (Auto) [place] # (Auto) Eos # (Auto) Baso # (Auto) Abs Immat Gran (auto) Absolute Neuts (auto) Absolute Nucleated RBC 0.000 Nucleated RBC % (auto) 0.0 Neutrophils % (Manual) Band Neutrophils % Lymphocytes % (Manual) Monocytes % (Manual) Metamyelocytes % Abs Neuts (Manual) Lymphocytes # (Manual) Monocytes # (Manual) Metamyelocytes # Toxic Vacuolation Platelet Estimate Plt Morphology Comment RBC Morphology Smear Tech's Comments Smear Path Review PT INR APTT ABG pH ABG pCO2 ABG pO2 ABG HCO3 ABG O2 Saturation ABG Base Excess Oxygen Given Sodium 141 Potassium 4.4 Chloride 103 Carbon Dioxide 30 H Anion Gap 12 BUN 22 H Creatinine 0.60 Estim Creat Clear Calc 81.8 Estimated GFR > 60 POC Glucose Random Glucose 130 H Lactic Acid Calcium 7.7 L Total Bilirubin Direct Bilirubin AST ALT Alkaline Phosphatase Troponin I High Sens B-Natriuretic Peptide Total Protein Albumin Lipase Stool Leukocytes, Qual Vancomycin Trough 6.9 L Urine Opiates Screen Ur Barbiturates Screen Ur Phencyclidine Scrn Ur Amphetamines Screen U Benzodiazepines Scrn Urine Cocaine Screen U Marijuana (THC) Screen C. difficile Tox B Gene C. difficile Toxin A&B C. difficile Antigen C. difficile Interpret Coronavirus (PCR) HIV 1&2 Ab/P24 Ag 4thGn Influenza Type A (PCR) Influenza Type B (PCR) RSV RNA Qual (PCR) Airway Mallampati Class: II TM Dist: >3cm Neck ROM: Full
--- NOTE | 2020-06-26 13:03 | MHC.SHP ---
Pre-Procedural Eval Section B Chief Complaint: flu like symptoms, sob and vomiting Allergies: Allergies Allergy/AdvReac Type Severity Reaction Status Date / Time No Known Allergies Allergy Verified 06/19/20 13:41 [No Known Allergies*] latex Allergy Unknown rash Uncoded 06/19/20 05:58 Plan Patient has been examined and remains a candidate for the planned procedure
--- NOTE | 2020-06-26 13:06 | PC.NURSE ---
patient was incontinent of urine. repositioned two assist. hob 90 degrees. anesthesia by bedside. sob at rest and repositioning
[2020-06-26] MEDS: Lactated Ringers 1,000 ML 100 ML IVCONT (13:19)
--- NOTE | 2020-06-26 13:22 | PC.NURSE ---
called for a resp treatment. moved to isolation room.
[2020-06-26] MEDS: Sertraline HCL 100 MG TABLET PO (16:01)
--- NOTE | 2020-06-26 17:13 | HO.PM.IMPN ---
Subjective Subjective Date of Service: 06/26/20 Interval History: Acute metabolic toxic encephalopathy/acute at acute hypoxemic respiratory failure: Review of Systems Denies any chest pain or abdominal pain But still short of breath and has cough,, going for bronchoscopy today Physical Exam Vital Signs: Vital Signs: Last Vital Signs Temp 98.0 F 06/26/20 15:44 Pulse 99 06/26/20 15:44 Resp 20 06/26/20 15:44 BP 135/63 06/26/20 15:44 Pulse Ox 93 06/26/20 15:44 Body Mass Index 22.8 Physical exam: Constitutional: Patient still somewhat short of breath HEENT: Eyes anicteric, no discharge Cvs: rrr, [id number] , no murmur res: Diminished breath sounds left is greater than right abd: no rebound or guarding ,nt, bs present. ext pulses present , no cyanosis neuro: axo3 , nonfocal. Objective Data Current Medications Generic Name Dose Route Start Last Admin Trade Name Freq PRN Reason Stop Dose Admin Acetaminophen 650 mg 06/19/20 11:55 06/25/20 21:05 Acetaminophen 325 Mg Tablet PO 650 mg Q6H PRN Administration Pain, Mild (Pain Scale 1-3) Acetaminophen 650 mg 06/26/20 13:04 Acetaminophen 325 Mg Tablet PO ONCE PRN Pain, Mild (Pain Scale 1-3) Alprazolam 1 mg 06/19/20 11:55 06/26/20 05:43 Alprazolam 0.5 Mg Tablet PO 1 mg BID PRN Administration Anxiety Clonidine HCl 0.1 mg 06/24/20 10:14 06/26/20 02:09 Clonidine Hcl 0.1 Mg Tablet PO 0.1 mg BID PRN Administration anxiety/restlessness Protocol Docusate Sodium 100 mg 06/19/20 11:55 Docusate Sodium 100 Mg Capsule PO DAILY PRN Constipation Enoxaparin Sodium 40 mg 06/19/20 11:55 06/26/20 11:42 Enoxaparin Sodium 40 Mg/0.4 Ml Syringe SUBCUT 40 mg Q24H GURWINDER Administration Guaifenesin 5 ml 06/23/20 11:30 06/26/20 16:01 Guaifenesin 100 Mg/5 Ml Liquid PO 5 ml Q6H GURWINDER Administration Guaifenesin/Codeine Phosphate 5 ml 06/22/20 12:58 Guaifen/Codeine Sf 200/20/10ml 10 Ml Liquid PO Q4H PRN Cough Guaifenesin/Codeine Phosphate 10 ml 06/23/20 18:57 06/25/20 18:47 Guaifen/Codeine Sf 200/20/10ml 10 Ml Liquid PO 10 ml Q4H PRN Administration Cough Guaifenesin/Dextromethorphan 5 ml 06/21/20 03:55 06/22/20 09:28 Guaifenesin Dm 100/10/5 Ml 5 Ml Syrup PO 5 ml Q6H PRN Administration Cough Piperacillin Sod/Tazobactam 50 mls @ 100 mls/hr 06/24/20 16:00 06/26/20 16:01 Sod 3.375 gm/ Sodium Chloride IV 100 mls/hr Q6H GURWINDER Administration Metronidazole 500 mg in 100 mls @ 100 mls/hr 06/24/20 20:00 06/26/20 15:51 Flagyl IV Not Given Q8H GURWINDER Vancomycin HCl 1,000 mg/ 270 mls @ 270 mls/hr 06/26/20 11:00 06/26/20 15:51 Sodium Chloride IV Not Given Q12H GURWINDER Lactated Ringer's 1,000 mls @ 100 mls/hr 06/26/20 13:15 06/26/20 13:19 Lr IVCONT 100 mls/hr .Q10H GURWINDER Administration Ketorolac Tromethamine 15 mg 06/19/20 12:19 06/22/20 12:09 Ketorolac Tromethamine 15 Mg/Ml Vial IVPUSH 15 mg Q6H PRN Administration Pain, Moderate (Pain Scale 4-6 Methylprednisolone Sodium Succinate 40 mg 06/19/20 11:55 06/26/20 11:42 Methylprednisolone Sod Succ/Pf 40 Mg/Ml Vial IVPUSH 40 mg Q12H GURWINDER Administration Omeprazole 20 mg 06/24/20 06:30 06/26/20 05:43 Omeprazole 20 Mg Capsule.Dr PO 20 mg DAILY@0630 GURWINDER Administration Ondansetron HCl 4 mg 06/19/20 11:55 Ondansetron Hcl 4 Mg/2 Ml Vial IVPUSH Q8H PRN Nausea and Vomiting Ondansetron HCl 4 mg 06/24/20 14:30 06/24/20 14:57 Ondansetron Hcl 4 Mg/2 Ml Vial IVPUSH 4 mg Q6H PRN Administration Nausea Sertraline HCl 100 mg 06/19/20 11:55 06/26/20 16:01 Sertraline Hcl 100 Mg Tablet PO 100 mg DAILY GURWINDER Administration Sodium Chloride 3 ml 06/19/20 11:55 06/26/20 16:04 0.9 % Sodium Chloride Flush 3 Ml Syringe IVFLUSH 3 ml QSHIFT GURWINDER Administration Vancomycin HCl 125 mg 06/24/20 18:15 06/26/20 15:51 Vancomycin Hcl 125 Mg Capsule PO Not Given Q6H GURWINDER Labs CBC & Chem 7: 06/26/20 05:34 06/26/20 05:34 Microbiology Microbiology Results: Microbiology 06/24/20 15:11 Stool Stool Culture - Preliminary Normal so far. 06/24/20 20:36 Blood - Venous Blood Culture - Preliminary No growth after 24 hours. 06/24/20 20:36 Blood - Venous Blood Culture - Preliminary No growth after 24 hours. 06/19/20 04:07 Blood - Venous Blood Culture - Final Coag negative Staphylococcus 06/19/20 04:07 Blood - Venous Blood Culture - Final No growth after 5 days. Assessment and Plan (1) Cavitary pneumonia: Problem details: cavitary pna some areas suggesting air fluid levels LLL. Status: Acute (2) Leukocytosis: Status: Acute (3) Pneumonia: Status: Acute (4) COPD exacerbation: Status: Acute Assessment and Plan: 59-year-old female with past medical history of COPD / asthma who presents to the hospital with shortness of breath. Chest x-ray reveals infiltrate. 1. Acute metabolic toxic encephalopathy/acute at acute hypoxemic respiratory failure: Probably related to heroin overdose Leukocytosis is slightly trending up 1/2 set of blood culture came out to be staph aureus coagulae negative. blood cultures pending HIV neg Patient will need BHN clearance since unclear why used heroin even though she is denying Urine toxicology -positive for opioid and benzodiazepine. Pulmonary and ID saw the patient-continue IV Vanco and Zosyn and will monitor Vanco trough , patient is going to mental bronchoscopy: as per pulm -pus came out , opened air way: Bronchoscopy labs are pending 2.COPD / asthma exacerbation: dyspnea, wheezing, cough, sputum production chest x-ray showing pneumonia continue Solu-Medrol, DuoNeb q.i.d. and p.r.n. O2 supplement as required abg seems improving 3. hyponatremia--seems normalised , thought to be related to: likely from SSRI, sodium level is now better. Will see what nephrology has to say 5. anxiety: p.r.n. hydroxyzine. 6. Diarrahae: Question C diff positive Will continue p.o. Vanco, IV Flagyl.
--- NOTE | 2020-06-26 18:06 | PM.OP ---
Brief Operative Note Date of Service: 06/26/20 Pre-op diagnosis: Cavitary pneumonia Post-op diagnosis: other (Postobstructive pneumonia) Procedure: Bronchoscopy Surgeon: Jonn Lenz MD Estimated blood loss (mL): 0 Pathology: other (Brushings from the left lower lobe, biopsies from the left lower lobe, washings from the left lower lobe) Condition: stable
[2020-06-26] MEDS: vancomycin HCL 1,000 MG in 0.9 % Sodium Chloride 250 ML 270 MG IV (22:49)
[2020-06-27] VITALS (9 sets, daily range): BP systolic 130–193; BP diastolic 58–88; PULSE 82–92; RESP 14–28; TEMP 36.6–37.1; O2SAT 91–96
[2020-06-27] MEDS: vancomycin HCL 125 MG CAPSULE PO ×5 (00:01→22:48)
--- NOTE | 2020-06-27 00:50 | OP_ITS ---
SURGEON: Jonn Lenz MD PREOPERATIVE DIAGNOSIS: POSTOPERATIVE DIAGNOSIS: Postobstructive pneumonia due to airway obstruction. PROCEDURE PERFORMED: Bronchoscopy. ESTIMATED BLOOD LOSS: COMPLICATIONS: ANESTHESIA: General endotracheal anesthesia. ASSISTANTS: None. SPECIMENS: INDICATION: Cavitary pneumonia/lung abscess. DESCRIPTION OF PROCEDURE: After the patient was adequately sedated and intubated, the flexible digital bronchoscope was inserted via the ET tube to the level of the main yaw. The tracheobronchial tree was examined up to the subsegmental level. The patient did have airway obstruction, which appeared to be due to inflammation in the left lower lobe. Using cytologic brush, I was able to go into the actual airway and microbiology brush and cytology brush were sent to the appropriate locations. Using the forceps, forceps biopsies were also provided and opened up the closed airway. We did take some biopsies and sent in formalin. Some of the biopsies were transbronchial. Therefore, the forceps was not visualized when it went into the airway. Specimens were sent into the appropriate locations. After the airway was opened with the interventions, we started seeing some pus draining out of the airway, consistent with a postobstructive process. Again, no foreign body appreciated, although that is in the differential. Malignancy is also in the differential. Chronic inflammation is also in the differential. The bronchoscope was then removed. The total endoscopic time, approximately 20 minutes. The patient tolerated the procedure well. Vital signs were stable. The patient was extubated and sent back to her room for continued IV antibiotics. MD CHRIS Rehman/CHARLIE / [id number]
[2020-06-27] MEDS: Piperacillin Sodium/Tazobactam 3.375 GM in 0.9 % Sodium Chloride 50 ML IV ×4 (03:39→22:48)
[2020-06-27] MEDS: metroNIDAZOLE/NS 500 MG/100 ML PIGGYBACK 100 MG IV ×3 (04:25→19:59)
[2020-06-27] MEDS: Omeprazole 20 MG CAPSULE.DR PO (05:34)
[2020-06-27] MEDS: guaiFENesin 100 MG/5 ML LIQUID PO ×2 (05:34→22:48)
[2020-06-27 06:45] LABS: Hematocrit 38.3 % (37-47); Hemoglobin 11.8 g/dl (12.0-16.0); Mean Corpuscular HGB Conc 30.8 g/dl (31.0-35.0); Mean Corpuscular Hemoglobin 27.4 pg (27.0-33.0); Mean Corpuscular Volume 89.1 fL (80-98); Mean Platelet Volume 10.2 fL (9.4-12.3); Platelet Count 548 X10*3/uL (160-400); Red Cell Distribution Width 13.3 % (11.0-16.0)
[2020-06-27 06:51] LABS: Anion Gap 17 (12-20); Blood Urea Nitrogen 44 mg/dL (9-16); Calcium 7.4 mg/dL (8.4-10.2); Carbon Dioxide 25 mmol/L (22-29); Chloride 105 mmol/L (96-108); Creatinine Clr Calc Pharmacy 51.6; Estimated Glomerular Filt Rate > 60; Glucose Random 114 mg/dL (60-115); Potassium 4.8 mmol/l (3.3-5.1); Sodium 142 mmol/L (135-145)
[2020-06-27 07:34] LABS: White Blood Count 71.1 X10*3/uL (4.8-10.8)
--- NOTE | 2020-06-27 09:22 | HO.POSTANES ---
Post Anesthesia Evaluation Post Anesthesia Evaluation Vital Signs: Vital Signs Temp Pulse Resp BP Pulse Ox 06/27/20 08:00 98.1 F 82 20 193/83 H 93 06/27/20 04:00 98.1 F 85 16 176/79 H 94 06/27/20 00:00 97.9 F 84 14 145/88 H 96 Anesthesia: General Mental Status: Awake Pain Control: Satisfactory Nausea/Vomiting: None Hydration: Adequate Anesthesia-Related Issues: No Anes. Related Issues
--- NOTE | 2020-06-27 10:13 | P.PNPL_ITS ---
Subjective Subjective Date of Service: 06/27/20 Interval history: The patient was seen and examined. She did have a bronchoscopy yesterday demonstrating in obstructed airway in the left lower lobe. Unclear if the obstruction was due to malignancy versus inflammation. Biopsies and brushings were taken. Cultures are still pending. Unfortunately her white count continues to climb. Infectious Disease should evaluate the patient. Objective Data Labs CBC & Chem 7: 06/27/20 05:21 06/27/20 05:21 Labs: Laboratory Results - last 24 hr 06/26/20 06/27/20 06/27/20 08:56 05:21 05:21 WBC 71.1 H* RBC 4.30 Hgb 11.8 L Hct 38.3 MCV 89.1 MCH 27.4 MCHC 30.8 L RDW 13.3 Plt Count 548 H MPV 10.2 Absolute Nucleated RBC 0.000 Nucleated RBC % (auto) 0.0 Sodium 142 Potassium 4.8 Chloride 105 Carbon Dioxide 25 Anion Gap 17 BUN 44 H D Creatinine 0.95 Estim Creat Clear Calc 51.6 Estimated GFR > 60 Random Glucose 114 Calcium 7.4 L Vancomycin Trough 6.9 L Microbiology Microbiology Results: Microbiology 06/26/20 13:55 Lung Left Lower Lobe Routine Culture - Preliminary No growth to date. 06/26/20 13:55 Lung Left Lower Lobe Routine Culture - Preliminary No growth to date. 06/24/20 15:11 Stool Stool Culture - Preliminary Culture in progress. 06/24/20 20:36 Blood - Venous Blood Culture - Preliminary No growth after 48 hours. 06/24/20 20:36 Blood - Venous Blood Culture - Preliminary No growth after 48 hours. 06/19/20 04:07 Blood - Venous Blood Culture - Final Coag negative Staphylococcus 06/19/20 04:07 Blood - Venous Blood Culture - Final No growth after 5 days. Review of Systems Constitutional: Reports lethargy, Reports malaise, Denies night sweats and Reports weight loss Denies change in voice, Denies lip swelling, Denies mouth pain, Reports nasal congestion, Reports nasal discharge and Denies tongue swelling Cardiovascular: Reports chest pain Respiratory: Reports cough and Reports pain on inspiration Gastrointestinal: Denies abdominal pain Musculoskeletal: Denies no additional musculoskeletal complaints Denies Neuro-related abnormal movements Psychiatric: Denies no additional psychiatric complaints Hematologic/Lymphatic: Denies easy bleeding and Denies lymphadenopathy Allergic/Immunologic: Denies lip swelling and Denies tongue swelling Physical Exam Vital Signs: Vital Signs: Last Vital Signs Temp 98.1 F 06/27/20 08:00 Pulse 92 06/27/20 10:07 Resp 18 06/27/20 10:07 BP 130/58 L 06/27/20 10:07 Pulse Ox 95 06/27/20 10:07 Body Mass Index 22.8 Const: General: alert HENMT: General nose exam: Abnormal external nose present and Nasal discharge present Eyes: Pupils: Equal, round and reactive pupils present Neck: Neck: Yes normal visual inspection, Yes full ROM and Yes no lympha denopathy Chest: Chest palpation & inspection: normal inspection of the chest Resp: Auscultation: diminished lung sounds Cardio: Rate: regular rate Rhythm: regular rhythm Heart sounds: S1 normal heart sound present and S2 normal heart sound present GI: Palpation (GI): Soft to palpation and nontender Auscultation: normal bowel sounds : General: Yes no CVA tenderness Back/Spine/Pelvis: Back: no CVA tenderness Skin: General skin exam: rashes and/or lesions noted Neuro: Cranial nerves: Yes Equal, round and reactive pupils present Assessment and Plan Assessment and plan (1) Cavitary pneumonia: Problem details: cavitary pna some areas suggesting air fluid levels LLL. Consistent with a postobstructive process. We were able to open up the airways some and did drained pus from the left lower lobe airway. Status: Acute Assessment and Plan: Continue current antibiotics Needs infectious disease evaluation for prolonged antibiotics If the area does not improve due to the obstruction may need a surgical evaluation as well. (2) Leukocytosis: Status: Acute (3) Pneumonia: Status: Acute Time Spent With Patient Time: Total time spent is greater than 50% in coordination of care (as documented) at patient's floor/unit and/or counseling patient: Time with patient: 25 - 35 minutes
[2020-06-27] MEDS: 0.9 % Sodium Chloride Flush 3 ML SYRINGE IVFLUSH ×3 (10:22→22:49)
[2020-06-27] MEDS: ALPRAZolam 0.5 MG TABLET 1 MG PO (10:22)
[2020-06-27] MEDS: Sertraline HCL 100 MG TABLET PO (10:22)
[2020-06-27] MEDS: vancomycin HCL 1,000 MG in 0.9 % Sodium Chloride 250 ML 270 MG IV (10:22)
[2020-06-27] MEDS: guaiFEN/Codeine SF 200/20/10ML 10 ML LIQUID PO ×2 (10:30→16:48)
--- NOTE | 2020-06-27 11:35 | P.CNHO_ITS ---
Subjective - Subjective Chief complaint: consult for leukocytosis. Patient: new to practice Consult date: 06/27/20 Requesting Physician: [facility] Primary Care Provider: Giacomo Broderick MD Medical Summary: DIAGNOSIS: LEUKOCYTOSIS. HPI - Consult Narrative Reason for consult: LEUKOCYTOSIS Narrative: Jessica Pollard is a pleasant 59 year old lady, with past medical history of COPD who presented to the hospital with complaints of shortness of breath, wheezing, coughing, sputum production and vomiting. Patient reported that her symptoms started few days ago, worsened over time. She has no fever or chills. She has had multiple episode of vomiting nonbloody, no abdominal pain, diarrhea constipation. Patient reported that since being in the hospital she started having chest pain that is midsternal, pressure-like, nonradiating, worse with cough, and reproducible. Patient denies any sick contacts or recent travel. She has such a significant cough that she developed back and chest wall pain. She had a headache for the past 1 week. She denies any leg swelling, no orthopnea or PND. On arrival to the ED patient has a temp of 101.5?, pulse rate of 114, respirat ory rate of 24, blood pressure 112/41. She was satting 98% on room air. Labs: [place] [address], PT of 17, INR of 1.4, sodium of 129, chloride of 90, BUN of 40, creatinine of 0.89, lipase of 5. COVID-19 negative, Chest x-ray shows airspace opacity of the left mid to lower lung suspicious for pneumonia EKG shows no ST T-wave changes Past medical history: COPD, anxiety Surgical history: , cholecystectomy, knee surgery is Family history: Adopted Social history: Comes from home, former tobacco use, quit 4 years ago, denies any alcohol or illicit drugs Review of Systems - Constitutional Reports body ache(s), Reports chills, Reports fatigue, Reports fever(s), Reports headache(s), Reports lack of energy, Reports malaise, Reports weakness, Reports weight loss - Eyes Denies blurry vision - ENT Reports system reviewed and no additional complaints, except as documented, Reports dizziness - Cardiovascular Reports chest pain, Reports shortness of breath - Respiratory Reports chest congestion, Reports cough, Reports excessive phlegm production, Reports pain on inspiration - Gastrointestinal Reports abdominal pain, Reports constipation, Reports nausea, Reports vomiting, Denies diarrhea - Musculoskeletal Reports back pain - Integumentary/Breasts Skin/Breast: Denies bleeding lesions - Neurologic Reports system reviewed and no additional complaints, except as documented, Denies abnormal movements - Psychiatric Reports anxiety - Endocrine Denies cold intolerance - Hematologic/Lymphatic Denies easy bleeding - Allergic/Immunologic Reports GI upset with certain foods PMFSH Medical History: Medical History (Last Updated 07/02/20 @ 09:57 by Marva Peterson MD) Anxiety Asthma with COPD (chronic obstructive pulmonary disease) Atelectasis of left lung Atelectasis of left lung Cavitary pneumonia Pneumothorax on left Functional capacity: independent ambulation Patient : No Family History: Family History (Last Reviewed 06/27/20 @ 22:11 by Natali Harper MD) Other Family history non-contributory Smoking status: Former smoker Home Medications and Allergies Current Medications: Current Medications Generic Name Dose Route Start Last Admin Trade Name Freq PRN Reason Stop Dose Admin Acetaminophen 650 mg 06/19/20 11:55 06/25/20 21:05 Acetaminophen 325 Mg Tablet PO 650 mg Q6H PRN Administration Pain, Mild (Pain Scale 1-3) Acetaminophen 650 mg 06/26/20 13:04 Acetaminophen 325 Mg Tablet PO ONCE PRN Pain, Mild (Pain Scale 1-3) Alprazolam 1 mg 06/19/20 11:55 06/27/20 10:22 Alprazolam 0.5 Mg Tablet PO 1 mg BID PRN Administration Anxiety Clonidine HCl 0.1 mg 06/24/20 10:14 06/26/20 02:09 Clonidine Hcl 0.1 Mg Tablet PO 0.1 mg BID PRN Administration anxiety/restlessness Protocol Docusate Sodium 100 mg 06/19/20 11:55 Docusate Sodium 100 Mg Capsule PO DAILY PRN Constipation Enoxaparin Sodium 40 mg 06/19/20 11:55 06/26/20 11:42 Enoxaparin Sodium 40 Mg/0.4 Ml Syringe SUBCUT 40 mg Q24H GURWINDER Administration Guaifenesin 5 ml 06/23/20 11:30 06/27/20 05:34 Guaifenesin 100 Mg/5 Ml Liquid PO 5 ml Q6H GURWINDER Administration Guaifenesin/Codeine Phosphate 5 ml 06/22/20 12:58 Guaifen/Codeine Sf 200/20/10ml 10 Ml Liquid PO Q4H PRN Cough Guaifenesin/Codeine Phosphate 10 ml 06/23/20 18:57 06/27/20 10:30 Guaifen/Codeine Sf 200/20/10ml 10 Ml Liquid PO 10 ml Q4H PRN Administration Cough Guaifenesin/Dextromethorphan 5 ml 06/21/20 03:55 06/22/20 09:28 Guaifenesin Dm 100/10/5 Ml 5 Ml Syrup PO 5 ml Q6H PRN Administration Cough Piperacillin Sod/Tazobactam 50 mls @ 100 mls/hr 06/24/20 16:00 06/27/20 11:27 Sod 3.375 gm/ Sodium Chloride IV Infused Q6H GURWINDER Infusion Metronidazole 500 mg in 100 mls @ 100 mls/hr 06/24/20 20:00 06/27/20 05:37 Flagyl IV Infused Q8H GRUWINDER Infusion Vancomycin HCl 1,000 mg/ 270 mls @ 270 mls/hr 06/26/20 11:00 06/27/20 10:22 Sodium Chloride IV 270 mls/hr Q12H GURWINDER Administration Ketorolac Tromethamine 15 mg 06/19/20 12:19 06/22/20 12:09 Ketorolac Tromethamine 15 Mg/Ml Vial IVPUSH 15 mg Q6H PRN Administration Pain, Moderate (Pain Scale 4-6 Methylprednisolone Sodium Succinate 40 mg 06/19/20 11:55 06/27/20 00:01 Methylprednisolone Sod Succ/Pf 40 Mg/Ml Vial IVPUSH 40 mg Q12H GURWINDER Administration Morphine Sulfate 2 mg 06/27/20 11:08 Morphine Sulfate 2 Mg/Ml Cartridge IVPUSH Q4H PRN Pain, Severe (Pain Scale 7-10) Omeprazole 20 mg 06/24/20 06:30 06/27/20 05:34 Omeprazole 20 Mg Capsule.Dr PO 20 mg DAILY@0630 GURWINDER Administration Ondansetron HCl 4 mg 06/19/20 11:55 Ondansetron Hcl 4 Mg/2 Ml Vial IVPUSH Q8H PRN Nausea and Vomiting Ondansetron HCl 4 mg 06/24/20 14:30 06/24/20 14:57 Ondansetron Hcl 4 Mg/2 Ml Vial IVPUSH 4 mg Q6H PRN Administration Nausea Sertraline HCl 100 mg 06/19/20 11:55 06/27/20 10:22 Sertraline Hcl 100 Mg Tablet PO 100 mg DAILY GURWINDER Administration Sodium Chloride 3 ml 06/19/20 11:55 06/27/20 10:22 0.9 % Sodium Chloride Flush 3 Ml Syringe IVFLUSH 3 ml QSHIFT GURWINDER Administration Vancomycin HCl 125 mg 06/24/20 18:15 06/27/20 05:34 Vancomycin Hcl 125 Mg Capsule PO 125 mg Q6H GURWINDER Administration Home Medications Medication Instructions Recorded Confirmed Type alprazolam 1 mg PO BID PRN 06/19/20 06/19/20 History fluticasone propionate [Flovent 2 puff INHALATION BID 06/19/20 06/19/20 History HFA] ibuprofen 600 mg PO TID 06/19/20 06/19/20 History ipratropium-albuterol 3 ml INHALATION NEEDED 06/19/20 06/19/20 History sertraline 100 mg PO DAILY 06/19/20 06/19/20 History umeclidinium [Incruse Ellipta] 62.5 mcg INHALATION DAILY 06/19/20 06/19/20 History Allergies Allergy/AdvReac Type Severity Reaction Status Date / Time No Known Allergies Allergy Verified 06/19/20 13:41 [No Known Allergies*] latex Allergy Unknown rash Uncoded 06/19/20 05:58 Physical Exam Vital signs: Vital Signs Temp 98.1 F 06/27/20 08:00 Pulse 92 06/27/20 10:07 Resp 28 H 06/27/20 10:07 BP 130/58 L 06/27/20 10:07 Pulse Ox 95 06/27/20 10:07 Intake & Output 06/26/20 06/27/20 06/27/20 18:59 06:59 18:59 Intake Total 2029 50 / 50 Output Total Balance 2025 50 / 50 Intake: Intake, Oral Amount 120 / 360 240 / 360 Intake, IV Amount 100 / 1670 1570 / 1670 50 / 50 Piperacillin Sodium/Tazobactam 100 / 200 100 / 200 50 / 50 3.375 gm In 0.9 % Sodium Chloride 50 ml @ 100 mls/hr IV Q6H GURWINDER Rx#:[id number] metroNIDAZOLE/NS 500 mg In 100 200 / 200 ml @ 100 mls/hr IV Q8H GURWINDER Rx#: [id number] vancomycin HCL 1,000 mg In 0.9 270 / 270 % Sodium Chloride 250 ml @ 270 mls/hr IV Q12H GURWINDER Rx#: [id number] Lactated Ringers 1,000 ml @ 100 1000 / 1000 mls/hr IVCONT .Q10H GURWINDER Rx#: [id number] Output: Output, Urine/Stool Mix Amount 4 / 4 Other: IV Intake, Intraoperative 800 Amount Number of Unmeasured Voids 4 Urine Bedside Commode Urine Color Concentrated Stool Bedside Commode Stool Amount Small Stool Color Brown Stool Consistency Loose Weight 56.699 kg - Constitutional Present: moderate distress - Routine HEENT Exam Head: Present: normal inspection ENT: Present: mucous membranes moist - Routine Neck Exam Present: supple - Routine Respiratory Exam Present: CTAB - Routine Cardiovascular Exam Cardiovascular: Present: RRR, S1, S2 - Routine Abdominal Exam Present: soft, tenderness. Absent: nontender - Routine Rectal Exam Patient deferred: digital exam - Routine Extremities Exam Present: nontender - Routine Skin Exam Present: intact - Routine Neurological Exam Present: alert, oriented X3 - Detailed Neurological Exam: Coma Scale Eye Opening: Spontaneous (4) Verbal Response: Oriented (5) Motor Response: Obeys commands (6) [place] Coma Scale Total: 15 - Routine Psychiatric Exam Present: depressed Hem/Onc Consult Result - Labs CBC & Chem 7: 07/06/20 05:20 07/06/20 05:20 Labs: Short CBC 06/27/20 Range/Units 05:21 WBC 71.1 H* (4.8-10.8) X10*3/uL Hgb 11.8 L (12.0-16.0) g/dl Hct 38.3 (37-47) % Plt Count 548 H (160-400) X10*3/uL BMP 06/27/20 05:21 Sodium 142 Potassium 4.8 Chloride 105 Carbon Dioxide 25 BUN 44 H D Creatinine 0.95 Calcium 7.4 L Assessment and Plan (1) Leukocytosis Status: Acute This is a pleasant 59-year-old lady she has been noted to have a significant Leukocytosis. Her WBC is rising. Serial WBC count: 35/29/25/28/63/and 71, today. Differential reveals: a left shift. She is anemic. Platelet count is elevated as well. DIFFERENTIAL DIAGNOSIS: 1. LEUKEMOID REACTION TO AN INFECTIOUS PROCESS: Most likely. Is in the c linical setting. Polysubstance abuser, overdosed, aspiration pneumonia. Concerned for empyema. 2. CML. PLAN: I will proceed with further evaluation. Check a manual diff. If it revealed a left shift will proceed with a BCR ABL gene transcript to rule out CML. Meanwhile search for a source of infection, that needs to be treated. Thank you for the consult, cc: Addendum on 07/06: A polysubstance abuser who has had overdoses and probably with diminished consciousness, aspirated. She presented with acute on chronic hypercarbic and hypoxic respiratory failure, and aspiration pneumonitis. She has developed a left-sided empyema with large hydropneumothorax for which 2 chest tubes have been placed. The lower one was discontinued yesterday. It drained 2500 cc of pus and there was a small a reaccumulation of fluid so the upper one was pulled back to where the collection was and is draining. No recurrence of the pneumothorax. Another chest film will be taken to decide about discontinuing the chest tube. She has cognitive function nodded that she understood. Growing anaerobic strep from the empyema fluid currently on Zosyn we added for synergy some Flagyl. Only has a 11 L minutes ventilatory requirement FiO2 is down to 30% with an excellent oxygen saturations of 96%. Excellent unsupported blood pressures. WBC is down to 15. All points to the diagnosis of leak a moist reaction related to the empyema.
--- NOTE | 2020-06-27 12:03 | P.PNIM_ITS ---
Subjective Subjective Date of Service: 06/27/20 Interval History: Seen in f/u for sepsis due to pneumonia, Clinically is doesn't feel better today ROS: +SOB, no fever, no chest pain, +back pain Physical Exam Vital Signs: Vital Signs: Last Vital Signs Temp 98.0 F 06/27/20 11:34 Pulse 85 06/27/20 11:34 Resp 20 06/27/20 11:34 BP 149/66 H 06/27/20 11:34 Pulse Ox 95 06/27/20 11:34 Body Mass Index 22.8 General: AO X 3, anxious, mild mod distres Resp: hao rhonchi CVS: S1,S2,RRR GI: +BS, NT, no distention Skin: No rash Neuro: motor grossly intact Psych: appropriate affect Objective Data Current Medications Generic Name Dose Route Start Last Admin Trade Name Freq PRN Reason Stop Dose Admin Acetaminophen 650 mg 06/19/20 11:55 06/25/20 21:05 Acetaminophen 325 Mg Tablet PO 650 mg Q6H PRN Administration Pain, Mild (Pain Scale 1-3) Acetaminophen 650 mg 06/26/20 13:04 Acetaminophen 325 Mg Tablet PO ONCE PRN Pain, Mild (Pain Scale 1-3) Alprazolam 1 mg 06/19/20 11:55 06/27/20 10:22 Alprazolam 0.5 Mg Tablet PO 1 mg BID PRN Administration Anxiety Clonidine HCl 0.1 mg 06/24/20 10:14 06/26/20 02:09 Clonidine Hcl 0.1 Mg Tablet PO 0.1 mg BID PRN Administration anxiety/restlessness Protocol Docusate Sodium 100 mg 06/19/20 11:55 Docusate Sodium 100 Mg Capsule PO DAILY PRN Constipation Enoxaparin Sodium 40 mg 06/19/20 11:55 06/26/20 11:42 Enoxaparin Sodium 40 Mg/0.4 Ml Syringe SUBCUT 40 mg Q24H GURWINDER Administration Guaifenesin 5 ml 06/23/20 11:30 06/27/20 05:34 Guaifenesin 100 Mg/5 Ml Liquid PO 5 ml Q6H GURWINDER Administration Guaifenesin/Codeine Phosphate 5 ml 06/22/20 12:58 Guaifen/Codeine Sf 200/20/10ml 10 Ml Liquid PO Q4H PRN Cough Guaifenesin/Codeine Phosphate 10 ml 06/23/20 18:57 06/27/20 10:30 Guaifen/Codeine Sf 200/20/10ml 10 Ml Liquid PO 10 ml Q4H PRN Administration Cough Guaifenesin/Dextromethorphan 5 ml 06/21/20 03:55 06/22/20 09:28 Guaifenesin Dm 100/10/5 Ml 5 Ml Syrup PO 5 ml Q6H PRN Administration Cough Piperacillin Sod/Tazobactam 50 mls @ 100 mls/hr 06/24/20 16:00 06/27/20 11:27 Sod 3.375 gm/ Sodium Chloride IV Infused Q6H GURWINDER Infusion Metronidazole 500 mg in 100 mls @ 100 mls/hr 06/24/20 20:00 06/27/20 05:37 Flagyl IV Infused Q8H GURWINDER Infusion Vancomycin HCl 1,000 mg/ 270 mls @ 270 mls/hr 06/26/20 11:00 06/27/20 10:22 Sodium Chloride IV 270 mls/hr Q12H GURWINDER Administration Ketorolac Tromethamine 15 mg 06/19/20 12:19 06/22/20 12:09 Ketorolac Tromethamine 15 Mg/Ml Vial IVPUSH 15 mg Q6H PRN Administration Pain, Moderate (Pain Scale 4-6 Methylprednisolone Sodium Succinate 40 mg 06/19/20 11:55 06/27/20 00:01 Methylprednisolone Sod Succ/Pf 40 Mg/Ml Vial IVPUSH 40 mg Q12H GURWINDER Administration Morphine Sulfate 2 mg 06/27/20 11:08 Morphine Sulfate 2 Mg/Ml Cartridge IVPUSH Q4H PRN Pain, Severe (Pain Scale 7-10) Omeprazole 20 mg 06/24/20 06:30 06/27/20 05:34 Omeprazole 20 Mg Capsule.Dr PO 20 mg DAILY@0630 GURWINDER Administration Ondansetron HCl 4 mg 06/19/20 11:55 Ondansetron Hcl 4 Mg/2 Ml Vial IVPUSH Q8H PRN Nausea and Vomiting Ondansetron HCl 4 mg 06/24/20 14:30 06/24/20 14:57 Ondansetron Hcl 4 Mg/2 Ml Vial IVPUSH 4 mg Q6H PRN Administration Nausea Sertraline HCl 100 mg 06/19/20 11:55 06/27/20 10:22 Sertraline Hcl 100 Mg Tablet PO 100 mg DAILY GURWINDER Administration Sodium Chloride 3 ml 06/19/20 11:55 06/27/20 10:22 0.9 % Sodium Chloride Flush 3 Ml Syringe IVFLUSH 3 ml QSHIFT GURWINDER Administration Vancomycin HCl 125 mg 06/24/20 18:15 06/27/20 05:34 Vancomycin Hcl 125 Mg Capsule PO 125 mg Q6H GURWINDER Administration Labs CBC & Chem 7: 06/27/20 05:21 06/27/20 05:21 Microbiology Microbiology Results: Microbiology 06/26/20 13:55 Lung Left Lower Lobe Routine Culture - Preliminary No growth to date. 06/26/20 13:55 Lung Left Lower Lobe Routine Culture - Preliminary No growth to date. 06/24/20 15:11 Stool Stool Culture - Preliminary Culture in progress. 06/24/20 20:36 Blood - Venous Blood Culture - Preliminary No growth after 48 hours. 06/24/20 20:36 Blood - Venous Blood Culture - Preliminary No growth after 48 hours. 06/19/20 04:07 Blood - Venous Blood Culture - Final Coag negative Staphylococcus 06/19/20 04:07 Blood - Venous Blood Culture - Final No growth after 5 days. Assessment and Plan (1) Cavitary pneumonia: Problem details: cavitary pna some areas suggesting air fluid levels LLL. Consistent with a postobstructive process. We were able to open up the airways some and did drained pus from the left lower lobe airway. Status: Acute (2) Leukocytosis: Status: Acute (3) Hyponatremia: Status: Acute (4) Leukocytosis: Status: Acute Assessment and Plan: 59-year-old female with past medical history of COPD / asthma who presents to the hospital with shortness of breath. Chest x-ray reveals infiltrate # Sepsis due to cavitary pneumonia s/p bronch on 06/[address] Lenz and found to have cavitary pna some areas suggesting air fluid levels LLL Consistent with a postobstructive process. We were able to open up the airways some and di d drained pus from the left lower lobe airway. -continue IV Abx presently on Zosyn and Vacomycin. Awaiting bronch cultures -ID consult # COPD / asthma exacerbation--has been on steroid for 10 days. -Continue bronchodilators. Oxygen as needed # hyponatremia--likely from SSRI, sodium level is now normal . # leukocytosis--continue to go up to now 71 ? CML vs leukomoid reaction. Oncology consult # anxiety - p.r.n. hydroxyzine # Back pain--Morphine IV DVT prophylaxis Lovenox
[2020-06-27] MEDS: Enoxaparin Sodium 40 MG/0.4 ML SYRINGE SUBCUT (12:50)
[2020-06-27] MEDS: Morphine Sulfate 2 MG/ML CARTRIDGE IVPUSH ×2 (12:51→19:55)
[2020-06-27 13:17] LABS: Band Neutrophils Percent 6 % (3-5); Monocytes Absolute Manual 1.4 X10*3/uL (0.0-1.2); Monocytes Percent Manual 2 % (2-11); Neutrophils Absolute Manual 69.7 X10*3/uL (2.2-7.9); Neutrophils Percent Manual 92 % (45-73)
[2020-06-27 13:18] LABS: RBC Morphology NOTED
[2020-06-27 13:19] LABS: Acanthocytes 2+; Macrocytosis 1+; Toxic Granulation PRESENT; Toxic Vacuolation PRES
[2020-06-27 13:51] LABS: Platelet Estimate INCREASED (NORMAL); Platelet Morphology Comment NORMAL
--- NOTE | 2020-06-27 16:53 | MHC.PIE ---
Elevated WBC 71.1 today - reported to Dr Viera. Oncology / Hemat Dr copeland consulted and came to see patient. New labs pending. Patient c/o pain, still very weak. Dr Viera ordered PRN morphine 2mg IVP, given at 1251 with good effect. Patient BP this morning up to 193/83 (Dr Viera aware), increase work of breathing with activity. Rechecked, down to 130/58. RR improved as well. Up to chair most of day, 1 assist to commode. Having small amt dark brown loose stool.
--- NOTE | 2020-06-27 22:09 | W.PM.IDCN ---
History of Present Illness Data of Consult Service Date: 06/27/20 Requesting physician: Ignacio Viera Primary Care Provider: MD SHEEBA Yadav Reason for consult: shortness of breath She presents with shortness of breath for 3 day She has no nausea or vomiting No one else is new COVID is negative Review of Systems Review of Systems: Yes all other systems are reviewed and are negative Neurologic: Denies Neuro-related abnormal movements PMFSH Past Medical History Medical History Anxiety Asthma with COPD (chronic obstructive pulmonary disease) Cavitary pneumonia Functional capacity: independent ambulation Family History Family History Other Family history non-contributory Social History Social History Household Members: Spouse Housing: House Do you presently have visiting nurse or other home services: No Smoking Status: Former smoker Use of substances other than those prescribed or required for medical reasons: Yes Substance Use Type Other:: denies use Currently Displaying Signs/Symptoms of Drug Intoxication Withdrawal: No Have you been hit, kicked, punched, or otherwise hurt by someone within the past year? If so, by whom?: No Do you feel safe in your current relationship?: Yes Is there a partner from a previous relationship who is making you feel unsafe now?: No Are you made to feel afraid or neglected: No Advance Directives: No Do you have thoughts of harming others: None Do you have a plan to hurt others: No Plan Recently lost weight without trying: Unsure service: No Current occupational status: unemployed Meds Allergies Allergy/AdvReac Type Severity Reaction Status Date / Time No Known Allergies Allergy Verified 06/19/20 13:41 [No Known Allergies*] latex Allergy Unknown rash Uncoded 06/19/20 05:58 Home Medications Medication Instructions Recorded Confirmed Type alprazolam 1 mg PO BID PRN 06/19/20 06/19/20 History fluticasone propionate [Flovent 2 puff INHALATION BID 06/19/20 06/19/20 History HFA] ibuprofen 600 mg PO TID 06/19/20 06/19/20 History ipratropium-albuterol 3 ml INHALATION NEEDED 06/19/20 06/19/20 History sertraline 100 mg PO DAILY 06/19/20 06/19/20 History umeclidinium [Incruse Ellipta] 62.5 mcg INHALATION DAILY 06/19/20 06/19/20 History Physical Exam Vital Signs: Vital Signs: Last Vital Signs Temp 97.9 F 06/27/20 19:14 Pulse 88 06/27/20 19:14 Resp 18 06/27/20 19:14 BP 177/77 H 06/27/20 19:14 Pulse Ox 91 L 06/27/20 19:14 Body Mass Index 22.8 Const: General: cooperative HENMT: Head: Yes normal to inspection Resp: Effort & Inspection: normal respiratory effort Cardio: Rate: regular rate Rhythm: regular rhythm GI: Inspection: Yes normal to inspection Extrem: General: Yes normal to inspection Assessment and Plan (1) Leukocytosis: Status: Acute (2) Cavitary pneumonia: Problem details: cavitary pna some areas suggesting air fluid levels LLL. Consistent with a postobstructive process. Status: Acute Continue antibiotics at this time He will need possible 2-3 weeks ,IV for now Results Labs CBC & Chem 7: 06/27/20 05:21 06/27/20 05:21 Labs: Short CBC 06/27/20 Range/Units 05:21 WBC 71.1 H* (4.8-10.8) X10*3/uL Hgb 11.8 L (12.0-16.0) g/dl Hct 38.3 (37-47) % Plt Count 548 H (160-400) X10*3/uL BMP 06/27/20 05:21 Sodium 142 Potassium 4.8 Chloride 105 Carbon Dioxide 25 BUN 44 H D Creatinine 0.95 Calcium 7.4 L Microbiology Microbiology Results: Microbiology 06/26/20 13:55 Lung Left Lower Lobe Gram Stain - Final 06/26/20 13:55 Lung Left Lower Lobe Routine Culture - Preliminary No growth to date. 06/26/20 13:55 Lung Left Lower Lobe Gram Stain - Final 06/26/20 13:55 Lung Left Lower Lobe Routine Culture - Preliminary No growth to date. 06/24/20 15:11 Stool Stool Culture - Preliminary Culture in progress. 06/24/20 20:36 Blood - Venous Blood Culture - Preliminary No growth after 48 hours. 06/24/20 20:36 Blood - Venous Blood Culture - Preliminary No growth after 48 hours. 06/19/20 04:07 Blood - Venous Blood Culture - Final Coag negative Staphylococcus 06/19/20 04:07 Blood - Venous Blood Culture - Final No growth after 5 days.
[2020-06-27] MEDS: vancomycin HCL 1,000 MG in 0.9 % Sodium Chloride 250 ML 25 MG IV (22:48)
[2020-06-28] VITALS (7 sets, daily range): BP systolic 104–144; BP diastolic 57–89; PULSE 74–82; RESP 16–20; TEMP 36.5–36.9; O2SAT 96–98
[2020-06-28] MEDS: ALPRAZolam 0.5 MG TABLET 1 MG PO ×2 (00:11→15:19)
[2020-06-28] MEDS: Morphine Sulfate 2 MG/ML CARTRIDGE IVPUSH ×5 (02:32→22:13)
[2020-06-28] MEDS: metroNIDAZOLE/NS 500 MG/100 ML PIGGYBACK 100 MG IV ×3 (04:25→22:03)
[2020-06-28] MEDS: Piperacillin Sodium/Tazobactam 3.375 GM in 0.9 % Sodium Chloride 50 ML IV ×4 (04:25→23:13)
[2020-06-28] MEDS: guaiFENesin 100 MG/5 ML LIQUID PO ×2 (04:26→22:04)
[2020-06-28] MEDS: vancomycin HCL 125 MG CAPSULE PO ×3 (06:07→18:31)
[2020-06-28] MEDS: Omeprazole 20 MG CAPSULE.DR PO (06:07)
[2020-06-28] MEDS: 0.9 % Sodium Chloride Flush 3 ML SYRINGE IVFLUSH ×3 (06:13→22:04)
[2020-06-28] MEDS: Sertraline HCL 100 MG TABLET PO (09:00)
[2020-06-28] MEDS: cloNIDine HCL 0.1 MG TABLET PO (09:01)
[2020-06-28] MEDS: Enoxaparin Sodium 40 MG/0.4 ML SYRINGE SUBCUT (10:56)
[2020-06-28] MEDS: guaiFEN/Codeine SF 200/20/10ML 10 ML LIQUID PO (10:56)
[2020-06-28 11:05] LABS: Vancomycin Trough 31.8 mcg/mL (10.0-20.0)
--- NOTE | 2020-06-28 12:48 | P.PNIM_ITS ---
Subjective Subjective Date of Service: 06/28/20 Interval History: Seen in f/u for cavitary pneumonia with associated acute hypoxic respriatory failure. She feels a bit better than yesterday but has persistent sob Review of Systems Gen: no fever Resp: no sob, no cough CV: no chest, no CONNOLLY, no leg edema GI: No n/v, no abd pain Neuro: No confusion Physical Exam Vital Signs: Vital Signs: Last Vital Signs Temp 98.0 F 06/28/20 11:21 Pulse 76 06/28/20 11:21 Resp 16 06/28/20 11:21 BP 128/61 06/28/20 11:21 Pulse Ox 96 06/28/20 11:21 Body Mass Index 22.8 General: AO X 3, less anxious, mild distress Resp: hao rhonchi throught CVS: S1,S2,RRR GI: +BS, NT, no distention Skin: No rash Neuro: motor grossly intact Psych: appropriate affect Objective Data Current Medications Generic Name Dose Route Start Last Admin Trade Name Asmita PRN Reason Stop Dose Admin Acetaminophen 650 mg 06/19/20 11:55 06/25/20 21:05 Acetaminophen 325 Mg Tablet PO 650 mg Q6H PRN Administration Pain, Mild (Pain Scale 1-3) Acetaminophen 650 mg 06/26/20 13:04 Acetaminophen 325 Mg Tablet PO ONCE PRN Pain, Mild (Pain Scale 1-3) Alprazolam 1 mg 06/28/20 11:25 Alprazolam 0.5 Mg Tablet PO BID PRN Anxiety Clonidine HCl 0.1 mg 06/24/20 10:14 06/28/20 09:01 Clonidine Hcl 0.1 Mg Tablet PO 0.1 mg BID PRN Administration anxiety/restlessness Protocol Docusate Sodium 100 mg 06/19/20 11:55 Docusate Sodium 100 Mg Capsule PO DAILY PRN Constipation Enoxaparin Sodium 40 mg 06/19/20 11:55 06/28/20 10:56 Enoxaparin Sodium 40 Mg/0.4 Ml Syringe SUBCUT 40 mg Q24H GURWINDER Administration Guaifenesin 5 ml 06/23/20 11:30 06/28/20 10:57 Guaifenesin 100 Mg/5 Ml Liquid PO Not Given Q6H GURWINDER Guaifenesin/Codeine Phosphate 5 ml 06/22/20 12:58 Guaifen/Codeine Sf 200/20/10ml 10 Ml Liquid PO Q4H PRN Cough Guaifenesin/Codeine Phosphate 10 ml 06/23/20 18:57 06/28/20 10:56 Guaifen/Codeine Sf 200/20/10ml 10 Ml Liquid PO 10 ml Q4H PRN Administration Cough Guaifenesin/Dextromethorphan 5 ml 06/21/20 03:55 06/22/20 09:28 Guaifenesin Dm 100/10/5 Ml 5 Ml Syrup PO 5 ml Q6H PRN Administration Cough Piperacillin Sod/Tazobactam 50 mls @ 100 mls/hr 06/24/20 16:00 06/28/20 10:32 Sod 3.375 gm/ Sodium Chloride IV Infused Q6H GURWINDER Infusion Metronidazole 500 mg in 100 mls @ 100 mls/hr 06/24/20 20:00 06/28/20 12:13 Flagyl IV Infused Q8H GURWINDER Infusion Vancomycin HCl 500 mg/ Sodium 110 mls @ 110 mls/hr 06/29/20 10:00 Chloride IV Q12H GURWINDER Ketorolac Tromethamine 15 mg 06/19/20 12:19 06/22/20 12:09 Ketorolac Tromethamine 15 Mg/Ml Vial IVPUSH 15 mg Q6H PRN Administration Pain, Moderate (Pain Scale 4-6 Morphine Sulfate 2 mg 06/27/20 11:08 06/28/20 10:57 Morphine Sulfate 2 Mg/Ml Cartridge IVPUSH 2 mg Q4H PRN Administration Pain, Severe (Pain Scale 7-10) Omeprazole 20 mg 06/24/20 06:30 06/28/20 06:07 Omeprazole 20 Mg Capsule.Dr PO 20 mg DAILY@0630 GURWINDER Administration Ondansetron HCl 4 mg 06/19/20 11:55 Ondansetron Hcl 4 Mg/2 Ml Vial IVPUSH Q8H PRN Nausea and Vomiting Ondansetron HCl 4 mg 06/24/20 14:30 06/24/20 14:57 Ondansetron Hcl 4 Mg/2 Ml Vial IVPUSH 4 mg Q6H PRN Administration Nausea Sertraline HCl 100 mg 06/19/20 11:55 06/28/20 09:00 Sertraline Hcl 100 Mg Tablet PO 100 mg DAILY GURWINDER Administration Sodium Chloride 3 ml 06/19/20 11:55 06/28/20 06:13 0.9 % Sodium Chloride Flush 3 Ml Syringe IVFLUSH 3 ml QSHIFT GURWINDER Administration Vancomycin HCl 125 mg 06/24/20 18:15 06/28/20 10:56 Vancomycin Hcl 125 Mg Capsule PO 125 mg Q6H GURWINDER Administration Labs CBC & Chem 7: 06/27/20 05:21 06/27/20 05:21 Microbiology Microbiology Results: Microbiology 06/26/20 13:55 Lung Left Lower Lobe Gram Stain - Final 06/26/20 13:55 Lung Left Lower Lobe Routine Culture - Final No growth after 2 days 06/26/20 13:55 Lung Left Lower Lobe Gram Stain - Final 06/26/20 13:55 Lung Left Lower Lobe Routine Culture - Final No growth after 2 days 06/24/20 15:11 Stool Stool Culture - Preliminary Culture in progress. 06/24/20 20:36 Blood - Venous Blood Culture - Preliminary No growth after 48 hours. 06/24/20 20:36 Blood - Venous Blood Culture - Preliminary No growth after 48 hours. 06/19/20 04:07 Blood - Venous Blood Culture - Final Coag negative Staphylococcus 06/19/20 04:07 Blood - Venous Blood Culture - Final No growth after 5 days. Assessment and Plan (1) Cavitary pneumonia: Problem details: cavitary pna some areas suggesting air fluid levels LLL. Consistent with a post obstructive process. Status: Acute (2) Leukocytosis: Status: Acute (3) Hyponatremia: Status: Acute Assessment and Plan: 59-year-old female with past medical history of COPD / asthma who presents to the hospital with shortness of breath. Chest x-ray reveals infiltrate # Sepsis due to cavitary pneumonia s/p bronch on 06/[address] Lenz and found to have cavitary pna some areas suggesting air fluid levels LLL Consistent with a postobstructive process, able to open up the airways some and did drained pus from the left lower lobe airway. -continue IV Abx presently on Zosyn and Vacomycin--Hold Vanco due to high level. Awaiting bronch cultures -ID recommend total of 2 to 3 weeks of Abx, for now iV mode # COPD / asthma exacerbation--has been on steroid for 10 days. -Continue bronchodilators. Oxygen as needed # hyponatremia--likely from SSRI, sodium level is now normal . # leukocytosis--continue to go up to now 71 ? CML vs leukomoid reaction. -Ongoing work up by Oncology # anxiety - p.r.n. Xanax # Back pain--Morphine IV DVT prophylaxis Lovenox
[2020-06-28 13:09] LABS: Hematocrit 36.6 % (37-47); Hemoglobin 11.1 g/dl (12.0-16.0); Mean Corpuscular HGB Conc 30.3 g/dl (31.0-35.0); Mean Corpuscular Hemoglobin 27.7 pg (27.0-33.0); Mean Corpuscular Volume 91.3 fL (80-98); Mean Platelet Volume 9.9 fL (9.4-12.3); Platelet Count 442 X10*3/uL (160-400); Red Blood Count 4.01 X10*6/uL (4.20-5.50); Red Cell Distribution Width 13.7 % (11.0-16.0)
[2020-06-28 13:22] LABS: White Blood Count 44.3 X10*3/uL (4.8-10.8)
[2020-06-28 13:33] LABS: Anion Gap 14 (12-20); Calcium 7.4 mg/dL (8.4-10.2); Carbon Dioxide 26 mmol/L (22-29); Chloride 106 mmol/L (96-108); Estimated Glomerular Filt Rate 31; Glucose Random 114 mg/dL (60-115); Potassium 4.6 mmol/l (3.3-5.1); Sodium 141 mmol/L (135-145)
[2020-06-28 13:45] LABS: Blood Urea Nitrogen 72 mg/dL (9-16)
[2020-06-29] VITALS: BP 159/72; PULSE 77; RESP 18; TEMP 36.4; O2SAT 97
[2020-06-29] MEDS: vancomycin HCL 125 MG CAPSULE PO ×4 (00:26→17:08)
[2020-06-29] MEDS: Piperacillin Sodium/Tazobactam 3.375 GM in 0.9 % Sodium Chloride 50 ML IV ×4 (03:06→22:45)
[2020-06-29] MEDS: Morphine Sulfate 2 MG/ML CARTRIDGE IVPUSH ×5 (03:07→22:50)
[2020-06-29 03:58] VITALS: BP 127/60; PULSE 75; RESP 18; TEMP 36.7; O2SAT 98
[2020-06-29] MEDS: guaiFENesin 100 MG/5 ML LIQUID PO ×4 (04:10→22:45)
[2020-06-29] MEDS: metroNIDAZOLE/NS 500 MG/100 ML PIGGYBACK 100 MG IV ×3 (04:10→20:27)
[2020-06-29] MEDS: Omeprazole 20 MG CAPSULE.DR PO (05:17)
[2020-06-29 08:00] VITALS: BP 140/63; PULSE 78; RESP 18; TEMP 36.6; O2SAT 99
[2020-06-29] MEDS: Sertraline HCL 100 MG TABLET PO (08:27)
[2020-06-29 08:31] LABS: Vancomycin Random 22.4 mcg/mL (15-20)
[2020-06-29] MEDS: ALPRAZolam 0.5 MG TABLET 1 MG PO (08:32)
[2020-06-29 08:57] LABS: Hematocrit 37.8 % (37-47); Hemoglobin 11.2 g/dl (12.0-16.0); Mean Corpuscular HGB Conc 29.6 g/dl (31.0-35.0); Mean Corpuscular Hemoglobin 27.5 pg (27.0-33.0); Mean Corpuscular Volume 92.9 fL (80-98); Platelet Count 460 X10*3/uL (160-400); Red Blood Count 4.07 X10*6/uL (4.20-5.50); Red Cell Distribution Width 13.7 % (11.0-16.0)
[2020-06-29 09:13] LABS: White Blood Count 40.9 X10*3/uL (4.8-10.8)
[2020-06-29 09:16] LABS: Anion Gap 16 (12-20); Blood Urea Nitrogen 77 mg/dL (9-16); Calcium 7.7 mg/dL (8.4-10.2); Carbon Dioxide 27 mmol/L (22-29); Chloride 104 mmol/L (96-108); Creatinine Clr Calc Pharmacy 29.8; Estimated Glomerular Filt Rate 32; Glucose Random 126 mg/dL (60-115); Potassium 4.5 mmol/l (3.3-5.1); Sodium 142 mmol/L (135-145)
[2020-06-29] MEDS: 0.9 % Sodium Chloride Flush 3 ML SYRINGE IVFLUSH ×3 (10:12→20:27)
[2020-06-29] MEDS: Enoxaparin Sodium 40 MG/0.4 ML SYRINGE SUBCUT (11:26)
[2020-06-29 11:42] VITALS: BP 132/60; PULSE 75; RESP 20; TEMP 36.7; O2SAT 98
--- NOTE | 2020-06-29 11:50 | HO.PM.IMPN ---
Subjective Subjective Date of Service: 06/29/20 Interval History: Seen in f/u for cavitary pneumonia with associated acute hypoxic respriatory failure. She feels a bit better than yesterday but has persistent sob Review of Systems Gen: no fever Resp: no sob, no cough CV: no chest, no CONNOLLY, no leg edema Physical Exam Vital Signs: Vital Signs: Last Vital Signs Temp 97.9 F 06/29/20 08:00 Pulse 78 06/29/20 08:00 Resp 18 06/29/20 08:00 BP 140/63 H 06/29/20 08:00 Pulse Ox 99 06/29/20 08:00 Body Mass Index 22.8 General: AO X 3, less anxious, no distre Resp: hao rhonchi throught CVS: S1,S2,RRR GI: +BS, NT, no distention Skin: No rash Neuro: motor grossly intact Psych: appropriate affect Objective Data Current Medications Generic Name Dose Route Start Last Admin Trade Name Freq PRN Reason Stop Dose Admin Acetaminophen 650 mg 06/19/20 11:55 06/25/20 21:05 Acetaminophen 325 Mg Tablet PO 650 mg Q6H PRN Administration Pain, Mild (Pain Scale 1-3) Acetaminophen 650 mg 06/26/20 13:04 Acetaminophen 325 Mg Tablet PO ONCE PRN Pain, Mild (Pain Scale 1-3) Alprazolam 1 mg 06/28/20 11:25 06/29/20 08:32 Alprazolam 0.5 Mg Tablet PO 1 mg BID PRN Administration Anxiety Clonidine HCl 0.1 mg 06/24/20 10:14 06/28/20 09:01 Clonidine Hcl 0.1 Mg Tablet PO 0.1 mg BID PRN Administration anxiety/restlessness Protocol Docusate Sodium 100 mg 06/19/20 11:55 Docusate Sodium 100 Mg Capsule PO DAILY PRN Constipation Enoxaparin Sodium 40 mg 06/19/20 11:55 06/29/20 11:26 Enoxaparin Sodium 40 Mg/0.4 Ml Syringe SUBCUT 40 mg Q24H GURWINDER Administration Guaifenesin 5 ml 06/23/20 11:30 06/29/20 11:26 Guaifenesin 100 Mg/5 Ml Liquid PO 5 ml Q6H GURWINDER Administration Guaifenesin/Codeine Phosphate 5 ml 06/22/20 12:58 Guaifen/Codeine Sf 200/20/10ml 10 Ml Liquid PO Q4H PRN Cough Guaifenesin/Dextromethorphan 5 ml 06/21/20 03:55 06/22/20 09:28 Guaifenesin Dm 100/10/5 Ml 5 Ml Syrup PO 5 ml Q6H PRN Administration Cough Piperacillin Sod/Tazobactam 50 mls @ 100 mls/hr 06/24/20 16:00 06/29/20 10:42 Sod 3.375 gm/ Sodium Chloride IV Infused Q6H GURWINDER Infusion Metronidazole 500 mg in 100 mls @ 100 mls/hr 06/24/20 20:00 06/29/20 11:26 Flagyl IV 100 mls/hr Q8H GURWINDER Administration Ketorolac Tromethamine 15 mg 06/19/20 12:19 06/22/20 12:09 Ketorolac Tromethamine 15 Mg/Ml Vial IVPUSH 15 mg Q6H PRN Administration Pain, Moderate (Pain Scale 4-6 Morphine Sulfate 2 mg 06/27/20 11:08 06/29/20 08:26 Morphine Sulfate 2 Mg/Ml Cartridge IVPUSH 2 mg Q4H PRN Administration Pain, Severe (Pain Scale 7-10) Omeprazole 20 mg 06/24/20 06:30 06/29/20 05:17 Omeprazole 20 Mg Capsule.Dr PO 20 mg DAILY@0630 GURWINDER Administration Ondansetron HCl 4 mg 06/19/20 11:55 Ondansetron Hcl 4 Mg/2 Ml Vial IVPUSH Q8H PRN Nausea and Vomiting Ondansetron HCl 4 mg 06/24/20 14:30 06/24/20 14:57 Ondansetron Hcl 4 Mg/2 Ml Vial IVPUSH 4 mg Q6H PRN Administration Nausea Sertraline HCl 100 mg 06/19/20 11:55 06/29/20 08:27 Sertraline Hcl 100 Mg Tablet PO 100 mg DAILY GURWINDER Administration Sodium Chloride 3 ml 06/19/20 11:55 06/29/20 10:12 0.9 % Sodium Chloride Flush 3 Ml Syringe IVFLUSH 3 ml QSHIFT GURWINDER Administration Vancomycin HCl 125 mg 06/24/20 18:15 06/29/20 11:26 Vancomycin Hcl 125 Mg Capsule PO 125 mg Q6H GURWINDER Administration Labs CBC & Chem 7: 06/29/20 08:24 06/29/20 08:24 Microbiology Microbiology Results: Microbiology 06/24/20 15:11 Stool Stool Culture - Final Aga albicans 06/26/20 13:55 Lung Left Lower Lobe Gram Stain - Final 06/26/20 13:55 Lung Left Lower Lobe Routine Culture - Final No growth after 2 days 06/26/20 13:55 Lung Left Lower Lobe Gram Stain - Final 06/26/20 13:55 Lung Left Lower Lobe Routine Culture - Final No growth after 2 days 06/24/20 20:36 Blood - Venous Blood Culture - Preliminary No growth after 48 hours. 06/24/20 20:36 Blood - Venous Blood Culture - Preliminary No growth after 48 hours. 06/19/20 04:07 Blood - Venous Blood Culture - Final Coag negative Staphylococcus 06/19/20 04:07 Blood - Venous Blood Culture - Final No growth after 5 days. Assessment and Plan (1) Cavitary pneumonia: Status: Acute (2) Leukocytosis: Status: Acute (3) Hyponatremia: Status: Acute Assessment and Plan: 59-year-old female with past medical history of COPD / asthma who was admitted due to pneumonia that turned out to be cavitary pneumonia with associated PNA and marked leukocytosis and slow recovery. negative covid # Sepsis due to cavitary pneumonia s/p bronch on 06/[address] Lenz and found to have cavitary PNA some areas suggesting air fluid levels LLL Consistent with a postobstructive process, he was able to open up the airways some and did drained pus from the left lower lobe airway. -She received Levaquin x 1 on 06/19 in ED -she was on Ceftriaxone and Azithromycin for CAP from 06/19 to 06/24 -on 06/24, she was started on Vacomycin, Flagyl and Zosyn -D Vanco d/t toxic level and renal failure -ID recommend total of 2 to 3 weeks of Abx, for now iV mode # COPD / asthma exacerbation--better -has completed 10 days of steroid -continue bronchodilators and oxygen as needed #JOSIAH--likely from vancomycin toxicity. Creatinine went from 0.95 on 06/27 to 1.69 on 06/28 and 1.65 today 06/29. This concide with vancomycin level of 31.8 on 06/28. 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 Has been on PO Vanco D6/10 # hyponatremia 129 on 06/19--likely from SSRI. Level has been normal since. # Leukocytosis--she presented on 06/19 with WBC of 45 went irvin to 28 by 06/24, then went back up to 71 on 06/27. This is likely leukomoid reaction from many source including pulmonary infection, steroid and C dif. level is now trending down again at 40.9 today. She was seen by Dr. Starr with some ongoing work up to rule CML, Although I doubt that at this point # Anxiety - p.r.n. Xanax # Back pain--Morphine IV, transition to Oxycodone. DVT prophylaxis Lovenox
[2020-06-29 16:13] VITALS: BP 147/65; PULSE 74; RESP 20; TEMP 36.6; O2SAT 96
[2020-06-29 19:27] VITALS: BP 141/64; PULSE 78; RESP 20; TEMP 36.6; O2SAT 96
[2020-06-30] VITALS (9 sets, daily range): BP systolic 126–170; BP diastolic 61–70; PULSE 70–83; RESP 16–22; TEMP 36.3–36.7; O2SAT 95–99
--- NOTE | 2020-06-30 | XR_ITS ---
EXAMINATION: XR CHEST CLINICAL INFORMATION: Hypoxia. Left-sided pneumonia. COMPARISON: Previous chest x-ray 06/23/2020 and chest CTA 06/24/2020 TECHNIQUE: Frontal view of the chest was obtained. FINDINGS: There is new complete whiteout of the left hemithorax. There is new shift of the central mediastinal structures to the right. The right lung is clear. There is no right pleural effusion. There is no pneumothorax. There are degenerative changes of the spine. XR/XR chest 1V IMPRESSION: New complete whiteout of the left hemithorax and shift of the central mediastinal structures to the right. This is suggestive of an increasing left pleural effusion. Known cavitary left lower lobe pneumonia not well delineated.
[2020-06-30] MEDS: vancomycin HCL 125 MG CAPSULE PO ×5 (01:21→23:25)
[2020-06-30] MEDS: ALPRAZolam 0.5 MG TABLET 1 MG PO (01:23)
[2020-06-30] MEDS: Piperacillin Sodium/Tazobactam 3.375 GM in 0.9 % Sodium Chloride 50 ML IV ×4 (04:19→22:22)
[2020-06-30] MEDS: Morphine Sulfate 2 MG/ML CARTRIDGE IVPUSH ×4 (04:25→23:25)
[2020-06-30] MEDS: metroNIDAZOLE/NS 500 MG/100 ML PIGGYBACK 100 MG IV ×3 (04:51→19:49)
[2020-06-30 06:03] LABS: Hematocrit 37.5 % (37-47); Hemoglobin 10.9 g/dl (12.0-16.0); Mean Corpuscular HGB Conc 29.1 g/dl (31.0-35.0); Mean Corpuscular Volume 93.1 fL (80-98); Mean Platelet Volume 10.3 fL (9.4-12.3); Platelet Count 425 X10*3/uL (160-400); Red Blood Count 4.03 X10*6/uL (4.20-5.50); Red Cell Distribution Width 13.9 % (11.0-16.0)
[2020-06-30 06:14] LABS: White Blood Count 36.4 X10*3/uL (4.8-10.8)
[2020-06-30] MEDS: Omeprazole 20 MG CAPSULE.DR PO (06:37)
[2020-06-30] MEDS: guaiFENesin 100 MG/5 ML LIQUID PO (06:37)
[2020-06-30 07:00] LABS: Anion Gap 18 (12-20); Blood Urea Nitrogen 89 mg/dL (9-16); Calcium 7.8 mg/dL (8.4-10.2); Carbon Dioxide 25 mmol/L (22-29); Chloride 107 mmol/L (96-108); Creatinine Clr Calc Pharmacy 35.8; Estimated Glomerular Filt Rate 40; Glucose Random 102 mg/dL (60-115); Potassium 4.6 mmol/l (3.3-5.1); Sodium 145 mmol/L (135-145)
--- NOTE | 2020-06-30 08:25 | MHC.CM.PN ---
pt lives c her and daughter in their home. they will be able to help pt c her needs at dc should she need help. this will include a ride home at dc. dc plan is home no svcs at this time. cm to cont. to follow.
[2020-06-30] MEDS: 0.9 % Sodium Chloride Flush 3 ML SYRINGE IVFLUSH ×2 (09:20→20:00)
[2020-06-30] MEDS: Sertraline HCL 100 MG TABLET PO (09:21)
[2020-06-30] MEDS: Enoxaparin Sodium 40 MG/0.4 ML SYRINGE SUBCUT (11:17)
--- NOTE | 2020-06-30 12:38 | P.PNIM_ITS ---
Subjective Subjective Date of Service: 06/30/20 Interval History: patient seen today for follow-up for left-sided cavitary pneumonia, patient complaining of persistent shortness of breath requiring 5 L of oxygen, no acute overnight issues. Review of Systems General no headache no dizziness no fever chills. CVS no chest pain, no palpitation. Respiratory , complaining of persistent shortness of breath,no cough Gastrointestinal no nausea, no vomiting, no abdominal pain Physical Exam Vital Signs: Vital Signs: Last Vital Signs Temp 97.4 F 06/30/20 12:00 Pulse 77 06/30/20 12:00 Resp 18 06/30/20 12:00 BP 159/70 H 06/30/20 12:00 Pulse Ox 96 06/30/20 12:00 Body Mass Index 22.8 General patient resting comfortably in no acute distress. Neck is supple no JVD. CVS regular rate rhythm, Respiratory diminished breath sound left lung, no respiratory distress, no wheeze, no rhonchi. Gastrointestinal abdomen soft, nontender, bowel sounds audible Extremities no clubbing, no cyanosis or edema. Neuro nonfocal Skin no rash Objective Data Current Medications Generic Name Dose Route Start Last Admin Trade Name Freq PRN Reason Stop Dose Admin Acetaminophen 650 mg 06/19/20 11:55 06/25/20 21:05 Acetaminophen 325 Mg Tablet PO 650 mg Q6H PRN Administration Pain, Mild (Pain Scale 1-3) Acetaminophen 650 mg 06/26/20 13:04 Acetaminophen 325 Mg Tablet PO ONCE PRN Pain, Mild (Pain Scale 1-3) Alprazolam 1 mg 06/28/20 11:25 06/30/20 01:23 Alprazolam 0.5 Mg Tablet PO 1 mg BID PRN Administration Anxiety Clonidine HCl 0.1 mg 06/24/20 10:14 06/28/20 09:01 Clonidine Hcl 0.1 Mg Tablet PO 0.1 mg BID PRN Administration anxiety/restlessness Protocol Docusate Sodium 100 mg 06/19/20 11:55 Docusate Sodium 100 Mg Capsule PO DAILY PRN Constipation Enoxaparin Sodium 40 mg 06/19/20 11:55 06/30/20 11:17 Enoxaparin Sodium 40 Mg/0.4 Ml Syringe SUBCUT 40 mg Q24H GURWINDER Administration Guaifenesin 1,200 mg 06/30/20 21:00 Guaifenesin La 600 Mg Tab.Er.12h PO BID GURWINDER Guaifenesin/Dextromethorphan 5 ml 06/21/20 03:55 06/22/20 09:28 Guaifenesin Dm 100/10/5 Ml 5 Ml Syrup PO 5 ml Q6H PRN Administration Cough Piperacillin Sod/Tazobactam 50 mls @ 100 mls/hr 06/24/20 16:00 06/30/20 09:51 Sod 3.375 gm/ Sodium Chloride IV Infused Q6H GURWINDER Infusion Metronidazole 500 mg in 100 mls @ 100 mls/hr 06/24/20 20:00 06/30/20 06:15 Flagyl IV Infused Q8H GURWINDER Infusion Ketorolac Tromethamine 15 mg 06/19/20 12:19 06/22/20 12:09 Ketorolac Tromethamine 15 Mg/Ml Vial IVPUSH 15 mg Q6H PRN Administration Pain, Moderate (Pain Scale 4-6 Morphine Sulfate 2 mg 06/27/20 11:08 06/30/20 09:21 Morphine Sulfate 2 Mg/Ml Cartridge IVPUSH 2 mg Q4H PRN Administration Pain, Severe (Pain Scale 7-10) Omeprazole 20 mg 06/24/20 06:30 06/30/20 06:37 Omeprazole 20 Mg Capsule.Dr PO 20 mg DAILY@0630 GURWINDER Administration Ondansetron HCl 4 mg 06/19/20 11:55 Ondansetron Hcl 4 Mg/2 Ml Vial IVPUSH Q8H PRN Nausea and Vomiting Ondansetron HCl 4 mg 06/24/20 14:30 06/24/20 14:57 Ondansetron Hcl 4 Mg/2 Ml Vial IVPUSH 4 mg Q6H PRN Administration Nausea Oxycodone HCl 5 mg 06/29/20 12:59 Oxycodone Hcl Immed Release 5 Mg Tablet PO Q6H PRN Pain, Severe (Pain Scale 7-10) Sertraline HCl 100 mg 06/19/20 11:55 06/30/20 09:21 Sertraline Hcl 100 Mg Tablet PO 100 mg DAILY GURWINDER Administration Sodium Chloride 3 ml 06/19/20 11:55 06/30/20 09:20 0.9 % Sodium Chloride Flush 3 Ml Syringe IVFLUSH 3 ml QSHIFT GURWINDER Administration Vancomycin HCl 125 mg 06/24/20 18:15 06/30/20 06:37 Vancomycin Hcl 125 Mg Capsule PO 125 mg Q6H GURWINDER Administration Labs CBC & Chem 7: 06/30/20 05:22 06/30/20 05:22 Microbiology Microbiology Results: Microbiology 06/24/20 20:36 Blood - Venous Blood Culture - Final No growth after 5 days. 06/24/20 20:36 Blood - Venous Blood Culture - Final No growth after 5 days. 06/24/20 15:11 Stool Stool Culture - Final Aga albicans 06/26/20 13:55 Lung Left Lower Lobe Gram Stain - Final 06/26/20 13:55 Lung Left Lower Lobe Routine Culture - Final No growth after 2 days 06/26/20 13:55 Lung Left Lower Lobe Gram Stain - Final 06/26/20 13:55 Lung Left Lower Lobe Routine Culture - Final No growth after 2 days 06/19/20 04:07 Blood - Venous Blood Culture - Final Coag negative Staphylococcus 06/19/20 04:07 Blood - Venous Blood Culture - Final No growth after 5 days. Assessment and Plan (1) Leukocytosis: Status: Acute (2) Cavitary pneumonia: Status: Acute (3) Hyponatremia: Status: Acute (4) Leukocytosis: Status: Acute (5) Clostridioides difficile infection: Status: Acute (6) COPD exacerbation: Status: Acute (7) Sepsis: Status: Acute (8) Asthma with COPD (chronic obstructive pulmonary disease): Status: Acute (9) Anxiety: Status: Acute Assessment and Plan: 59-year-old female with past medical history of COPD / asthma who was admitted due to pneumonia that turned out to be cavitary pneumonia with associated PNA and marked leukocytosis and slow recovery. negative covid # Sepsis due to cavitary pneumonia s/p bronch on 06/[address] Lenz and found to have cavitary PNA, with air-fluid levels in left lower lobe suggestive of postobstructive process, he was able to open up the airways some and did drained pus from the left lower lobe airway. -She received Levaquin x 1 on 06/19 in ED -she was on Ceftriaxone and Azithromycin for CAP from 06/19 to 06/24 -on 06/24, she was started on Vacomycin, Flagyl and Zosyn -Vanco discontinue d/t toxic level and renal failure -ID recommend total of 2 to 3 weeks of Abx, for now will continue IV Zosyn and Flagyl today patient continued to complain of shortness of breath has diminished breath sound left side detention up, case discussed with Dr. Lenz, will obtain chest x-ray and if noted to have obstruction then the patient will need repeat bronchoscopy versus thoracic surgery consultation. Will encourage incentive spirometry add cough medicine twice daily and continue chest physical therapy. # Acute hypoxic respiratory failure due to above continue oxygen and follow-up of treatment plan. # COPD / asthma exacerbation--better, no acute exacerbation at this time -has completed 10 days of steroid -continue bronchodilators and oxygen as needed # JOSIAH--likely from vancomycin toxicity. Creatinine went from 0.95 on 06/27 to 1.69 on 06/28 and 1.65 today 06/29. This concide with vancomycin level of 31.8 on 06/28. - creatinine normalized today , will continue to follow BMP avoid nephrotoxic medication, BUN elevated will check stool guaiacs give IV fluid 500 mL. 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 Has been on PO Vanco # hyponatremia 129 on 06/19--likely from SSRI. Level has been normal since, 145 this morning. # Leukocytosis--she presented on 06/19 with WBC of 45 went irvin to 28 by 06/24, then went back up to 71 on 06/27. This is likely leukomoid reaction from many source including pulmonary infection, steroid and C dif. level is now trending down again at 36.4 today. She was seen by Dr. Starr with some ongoing work up to rule CML, workup pending # Anxiety - continue p.r.n. Xanax # Back pain-- continue Oxycodone. DVT prophylaxis Lovenox
[2020-06-30] MEDS: Acetaminophen 325 MG TABLET 650 MG PO ×2 (12:41→19:59)
[2020-06-30] MEDS: oxyCODONE HCl Immed Release 5 MG TABLET PO ×2 (12:42→20:00)
[2020-06-30] MEDS: 0.9 % Sodium Chloride 1,000 ML 100 ML IVCONT ×2 (13:08→23:28)
--- NOTE | 2020-06-30 14:24 | PM.PNNEP ---
Subjective Subjective Date of Service: 06/30/20 Interval history: evemts noted Physical Exam Vital Signs: Vital Signs: Last Vital Signs Temp 97.4 F 06/30/20 12:00 Pulse 77 06/30/20 12:00 Resp 18 06/30/20 12:00 BP 159/70 H 06/30/20 12:00 Pulse Ox 96 06/30/20 12:00 Body Mass Index 22.8 Const: General: cooperative Resp: Auscultation: clear to auscultation bilaterally Assessment & Plan Assessment and plan (1) Hyponatremia: Problem details: REsolved Status: Acute (2) JOSIAH (acute kidney injury): Problem details: Cr is trending down Avoid nephrotoxins Keep I > O Status: Acute
--- NOTE | 2020-06-30 14:59 | PM.PNPUL ---
Subjective Subjective Date of Service: 06/30/20 Principal diagnosis: Cavitary Pneumonia Lt lower lobe . Objective Data Labs CBC & Chem 7: 06/30/20 05:22 06/30/20 05:22 Labs: Laboratory Results - last 24 hr 06/29/20 06/30/20 06/30/20 20:03 05:22 05:22 WBC 36.4 H* RBC 4.03 L Hgb 10.9 L Hct 37.5 MCV 93.1 MCH 27.0 MCHC 29.1 L RDW 13.9 Plt Count 425 H MPV 10.3 Absolute Nucleated RBC 0.000 Nucleated RBC % (auto) 0.0 Sodium 145 Potassium 4.6 Chloride 107 Carbon Dioxide 25 Anion Gap 18 BUN 89 H* Creatinine 1.37 Estim Creat Clear Calc 35.8 Estimated GFR 40 Random Glucose 102 Calcium 7.8 L Random Vancomycin 18.0 Microbiology Microbiology Results: Microbiology 06/26/20 13:55 Lung Left Lower Lobe Fungal Identification - Preliminary No growth to date. 06/26/20 13:55 Lung Left Lower Lobe Fungal Identification - Preliminary No growth to date. 06/24/20 20:36 Blood - Venous Blood Culture - Final No growth after 5 days. 06/24/20 20:36 Blood - Venous Blood Culture - Final No growth after 5 days. 06/24/20 15:11 Stool Stool Culture - Final Aga albicans 06/26/20 13:55 Lung Left Lower Lobe Gram Stain - Final 06/26/20 13:55 Lung Left Lower Lobe Routine Culture - Final No growth after 2 days 06/26/20 13:55 Lung Left Lower Lobe Gram Stain - Final 06/26/20 13:55 Lung Left Lower Lobe Routine Culture - Final No growth after 2 days 06/19/20 04:07 Blood - Venous Blood Culture - Final Coag negative Staphylococcus 06/19/20 04:07 Blood - Venous Blood Culture - Final No growth after 5 days. Review of Systems Denies Neuro-related abnormal movements Physical Exam Vital Signs: Vital Signs: Last Vital Signs Temp 97.4 F 06/30/20 12:00 Pulse 77 06/30/20 12:00 Resp 18 06/30/20 12:00 BP 159/70 H 06/30/20 12:00 Pulse Ox 96 06/30/20 12:00 Body Mass Index 22.8 Const: Other: Looks sick, and SOB . but Alert and conversing slowly . No acute distress noted . HENMT: Other: No acute abnormalities noted Head: Yes normal to inspection Neck: Neck: Yes no lymphadenopathy, Yes trachea midline and Yes supple Chest: Other: some retraction of Left chest wall noted Resp: Other: Breath sounds are absent over the left lung , Has good breath sounds on Right side. Cardio: Rate: regular rate Rhythm: regular rhythm Heart sounds: no gallops and no murmurs GI: Inspection: Yes normal to inspection Percussion: Yes normal to percussion Back/Spine/Pelvis: Thoracic/Lumbar Spine: thoracic and lumbar spine normal to inspection Neuro: General: no focal motor deficits Extrem: General: Yes no clubbing, cyanosis or edema Psych: Other: slightly depressed and discouraged Assessment and Plan Assessment and plan (1) Cavitary pneumonia: Problem details: CONTINUE THE CURRENT ANTIBIOTICS . Status: Acute (2) Atelectasis of left lung: Problem details: THE CHEST XRAY TODAY SHOWS COMLETE ATLECTASIS OF LEFT LUNG , IT IS MOST LIKELY SEC TO ENDO BRONCHIAL INFLAMMATION / PLUS MUCOUS PLUGGING . NEEDS BRONCHOSCOPY AND BRONCHIAL TIOLETTING . DR ATKINSON WILL DO IT TOMORROW . I EXPLAINED TO THE PT. ABOUT THIS . Status: Acute Time Spent With Patient Time: Total time spent is greater than 50% in coordination of care (as documented) at patient's floor/unit and/or counseling patient: Time with patient: 15 - 24 minutes
[2020-06-30] MEDS: guaiFENesin LA 600 MG TAB.ER.12H 1200 MG PO (19:59)
[2020-07-01] VITALS (22 sets, daily range): BP systolic 111–177; BP diastolic 39–96; PULSE 75–111; RESP 13–36; TEMP 36.3–36.9; O2SAT 85–100
--- NOTE | 2020-07-01 | CT_ITS ---
EXAMINATION: CT CHEST WITHOUT CONTRAST CLINICAL INFORMATION: Concern for left-sided pneumothorax. COMPARISON: Prior chest x-ray today TECHNIQUE: Multidetector volumetric CT imaging of the chest was done. Axial MIP volume rendering provided. Sagittal and coronal reformatted images were obtained. This CT examination was performed using dose optimization techniques as appropriate, variously including the following: *Automated exposure control *Adjustment of mA and/or kV according to patient size (this includes techniques or standardized protocols for targeted exams where dose is matched to indication/reason for exam; i.e. extremities or head) *Use of iterative reconstruction technique DLP: 479 mGy-cm FINDINGS: PLEURA/LUNGS: There is a left-sided hydropneumothorax. Left lung is nearly entirely airless with only a small collection of air in the cavity at the medial left lung base. Left mainstem bronchus has a small amount of air in the remainder of the bronchi are nonaerated. There is a large volume left pleural effusion. The mediastinal structures are shifted to the right. There is depression of the left diaphragm. There is moderate volume air in the left hemithorax with a air-fluid level anteriorly. The right lung is nearly normally aerated. There is a small band of linear atelectasis in the right upper lobe. There is a trace dependent right pleural effusion. MEDIASTINUM: Mediastinal shifted to the right. Endotracheal tube in place. No mediastinal mass or significant lymphadenopathy. There is no pericardial effusion. Left IJ catheter tip in superior vena cava. AXILLA: No lymphadenopathy. UPPER ABDOMEN: Status post Cholecystectomy.. No focal lesions seen in the visualized portions of the liver, spleen, pancreas kidneys or adrenal glands OSSEOUS STRUCTURES: Unremarkable. CT/CT chest wo con IMPRESSION: 1. There is a cavitary lesion in the nearly collapsed left lung. 2. Large volume hydropneumothorax with mass effect compressing the mediastinum to the right and depressing the left diaphragm inferiorly. 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 Trace dependent right pleural effusion. 4. Endotracheal tube in place. This critical result was discussed with Tereza Nava on 07/01/2020, 10:30 PM and it was ascertained that the content and urgency of the report was understood at the time of direct communication.
[2020-07-01] MEDS: oxyCODONE HCl Immed Release 5 MG TABLET PO (02:10)
[2020-07-01] MEDS: Morphine Sulfate 2 MG/ML CARTRIDGE IVPUSH (05:06)
[2020-07-01] MEDS: Piperacillin Sodium/Tazobactam 3.375 GM in 0.9 % Sodium Chloride 50 ML IV ×4 (05:08→21:41)
[2020-07-01] MEDS: vancomycin HCL 125 MG CAPSULE PO (05:10)
[2020-07-01] MEDS: Omeprazole 20 MG CAPSULE.DR PO (05:10)
[2020-07-01] MEDS: metroNIDAZOLE/NS 500 MG/100 ML PIGGYBACK 100 MG IV ×3 (05:12→21:43)
[2020-07-01 06:42] LABS: Hematocrit 37.4 % (37-47); Hemoglobin 10.8 g/dl (12.0-16.0); Mean Corpuscular HGB Conc 28.9 g/dl (31.0-35.0); Mean Corpuscular Hemoglobin 27.1 pg (27.0-33.0); Mean Corpuscular Volume 93.7 fL (80-98); Mean Platelet Volume 10.5 fL (9.4-12.3); Platelet Count 423 X10*3/uL (160-400); Red Blood Count 3.99 X10*6/uL (4.20-5.50); Red Cell Distribution Width 13.9 % (11.0-16.0)
[2020-07-01 07:00] LABS: White Blood Count 36.3 X10*3/uL (4.8-10.8)
[2020-07-01 07:22] LABS: Anion Gap 14 (12-20); Blood Urea Nitrogen 87 mg/dL (9-16); Calcium 7.7 mg/dL (8.4-10.2); Carbon Dioxide 26 mmol/L (22-29); Chloride 108 mmol/L (96-108); Creatinine Clr Calc Pharmacy 39.5; Estimated Glomerular Filt Rate 45; Glucose Random 120 mg/dL (60-115); Potassium 4.3 mmol/l (3.3-5.1); Sodium 144 mmol/L (135-145)
[2020-07-01] MEDS: guaiFENesin LA 600 MG TAB.ER.12H 1200 MG PO (09:15)
[2020-07-01] MEDS: Sertraline HCL 100 MG TABLET PO (09:15)
[2020-07-01] MEDS: ALPRAZolam 0.5 MG TABLET 1 MG PO (09:15)
--- NOTE | 2020-07-01 09:17 | PM.EVENT ---
Event Note Date of Service: 07/01/20 (Pulm. note :Pt . remains dyspneac , on o2 3 L/mt, Lt chest is dull and no breath sounds heard .Pt will have Bronchoscopy , and Bronchial toiletting today by Dr. Lenz at 11-00 AM .)
--- NOTE | 2020-07-01 11:26 | PM.PNNEP ---
Subjective Subjective Date of Service: 07/01/20 Principal diagnosis: Cavitary Pneumonia Lt lower lobe . Interval history: Events noted Physical Exam Vital Signs: Vital Signs: Last Vital Signs Temp 97.6 F 07/01/20 10:21 Pulse 85 07/01/20 10:21 Resp 20 07/01/20 10:21 BP 129/48 L 07/01/20 10:21 Pulse Ox 97 07/01/20 10:21 Body Mass Index 22.8 Const: General: awake Neck: Neck: Yes supple Resp: Auscultation: rhonchi Cardio: Heart sounds: no gallops and no rubs Neuro: Motor exam (neuro): No Asterixis during motor activity present Assessment & Plan Assessment and plan (1) JOSIAH (acute kidney injury): Problem details: Cr is trending down Avoid nephrotoxins Keep I > O Status: Acute
--- NOTE | 2020-07-01 11:39 | MHC.SHP ---
Pre-Procedural Eval Section A The patient is an INPATIENT: Yes The History & Physical has been completed within 30 days and I have reviewed it.: Yes Section B Chief Complaint: flu like symptoms, sob and vomiting Allergies: Allergies Allergy/AdvReac Type Severity Reaction Status Date / Time No Known Allergies Allergy Verified 06/19/20 13:41 [No Known Allergies*] latex Allergy Unknown rash Uncoded 06/19/20 05:58 Plan Patient has been examined and remains a candidate for the planned procedure
--- NOTE | 2020-07-01 11:50 | PC.NURSE ---
patient being seen by anesthesia and md pablo. patient remains drowsy. hob 90 degrees. abgs are being drawn and patients is being cancelled for procedure. left eye 2mm slow reactive and right pupil and old cataract unresponsive.
[2020-07-01 11:57] LABS: Pt Ventilation O2% 3 L
[2020-07-01 12:06] LABS: Base Excess ABG -4.7; HCO3 ABG 26 mmol/l (22-26); PO2 ABG 91 mmhg (83-108)
[2020-07-01 12:07] LABS: Oxygen Saturation ABG 96.7 %
[2020-07-01 12:11] LABS: ABG PCO2 81 mmhg (32-45); pH ABG 7.12 (7.35-7.45)
--- NOTE | 2020-07-01 12:12 | PC.NURSE ---
1200. patient monitored off unit to room 485-1. spoke to Zulay ochoa and gave verbal report prior and post. patient remained sleepy and drowsy. asked if she took anything and stated no. Md carmona was going to speak to md spears regarding patient. repostioned once on floor. hob 45 degrees. remained drowsy but when awoken will respond to questions asked by shaking head only. will respond to name as well.
[2020-07-01] MEDS: Naloxone HCl 0.4 MG/ML VIAL 0.2 MG IV (12:52)
--- NOTE | 2020-07-01 14:04 | PC.NURSE ---
Received patient in ICU 260 at approx 1235 from [facility] [place] - respiratory status concern. Patient shallow respirations, only responding to tactile stimulation. HR 80's, SR. 02sat 99 on 4 liters, titrated down to 2 liters NC. Patient evaluated by Dr Jara - initial plan to intubate held, ordered to give narcan instead - 0.2mg IVP narcan given @ 1252. Patient mentation improved, waved, responded verbally, eyes opening. RR 20's, Patient put on 2 liters nasal cannula with etCO2 monitoring. running 50-52. plan for ABG at approx 1420.
[2020-07-01] MEDS: 0.9 % Sodium Chloride Flush 3 ML SYRINGE IVFLUSH (14:22)
[2020-07-01 14:24] LABS: Pt Ventilation O2% 2 L
[2020-07-01] MEDS: 0.9 % Sodium Chloride 1,000 ML 100 ML IVCONT (14:29)
[2020-07-01 14:32] LABS: Base Excess ABG -3.3; HCO3 ABG 28 mmol/l (22-26); PO2 ABG 52 mmhg (83-108)
[2020-07-01 14:35] LABS: ABG PCO2 88 mmhg (32-45); pH ABG 7.12 (7.35-7.45)
[2020-07-01] MEDS: Enoxaparin Sodium 40 MG/0.4 ML SYRINGE SUBCUT (14:42)
--- NOTE | 2020-07-01 14:55 | PC.NURSE ---
BIPAP STARTED AT 1450 ON SETTINGS OF 14/7 ON 30%.
--- NOTE | 2020-07-01 15:16 | W.PM.CCCN ---
History of Present Illness Data of Consult Service Date: 07/01/20 Requesting physician: Solange Courtney Primary Care Provider: Giacomo Broderick MD HPI Reason for consult: acute on chronic hypercarbic respiratory failure 59-year-old female who is a heroin and probably polysubstance abuser who went from having a left lower lobe extensive cavitary pneumonia on antibiotics and with a leuko moist reaction and then progressing to complete obstruction of the left mainstem bronchus with complete atelectasis of the left lung and became unarousable but was given opiates plus benzodiazepines today and has a history of heroin abuse in the hospital bathroom as well and she woke up on Narcan so we held off on intubation but she still has an acute and marked respiratory acidosis slowly worsening despite being more awake and we will attempt BiPAP because she is awake enough for airway protection and if it opens the left mainstem with with some expansion of the left lung will follow if it fails we might intubate Review of Systems Review of Systems: Yes Unobtainable due to mental condition Neurologic: Denies Neuro-related abnormal movements PMFSH Past Medical History Medical History (Updated 07/01/20 @ 11:28 by Dada Bojorquez MD) Anxiety Asthma with COPD (chronic obstructive pulmonary disease) Atelectasis of left lung Atelectasis of left lung Cavitary pneumonia Functional capacity: independent ambulation Family History Family History Other Family history non-contributory Social History Social History Household Members: Spouse Housing: House Do you presently have visiting nurse or other home services: No Smoking Status: Former smoker Use of substances other than those prescribed or required for medical reasons: No Substance Use Type Other:: denies use Currently Displaying Signs/Symptoms of Drug Intoxication Withdrawal: No Have you been hit, kicked, punched, or otherwise hurt by someone within the past year? If so, by whom?: No Do you feel safe in your current relationship?: Yes Is there a partner from a previous relationship who is making you feel unsafe now?: No Are you made to feel afraid or neglected: No Advance Directives: No Do you have thoughts of harming others: None Do you have a plan to hurt others: No Plan Recently lost weight without trying: Unsure service: No Current occupational status: unemployed Meds Allergies Allergy/AdvReac Type Severity Reaction Status Date / Time No Known Allergies Allergy Verified 06/19/20 13:41 [No Known Allergies*] latex Allergy Unknown rash Uncoded 06/19/20 05:58 Home Medications Medication Instructions Recorded Confirmed Type alprazolam 1 mg PO BID PRN 06/19/20 06/19/20 History fluticasone propionate [Flovent 2 puff INHALATION BID 06/19/20 06/19/20 History HFA] ibuprofen 600 mg PO TID 06/19/20 06/19/20 History ipratropium-albuterol 3 ml INHALATION NEEDED 06/19/20 06/19/20 History sertraline 100 mg PO DAILY 06/19/20 06/19/20 History umeclidinium [Incruse Ellipta] 62.5 mcg INHALATION DAILY 06/19/20 06/19/20 History Physical Exam Vital Signs: Vital Signs: Last Vital Signs Temp 97.4 F 07/01/20 13:15 Pulse 75 07/01/20 14:00 Resp 19 07/01/20 15:01 BP 115/57 L 07/01/20 14:00 Pulse Ox 94 07/01/20 14:00 Body Mass Index 22.8 arousable after Narcan with normal skin color but some pallor no wounds no acrocyanosis neurologically nonfocal extensive dullness to percussion of left chest with diminished expansion despite increased depth of breathing very large gradient between end-tidal CO2 an arterial pCO2 implying extensive space poor alveolar ventilation abdomen benign no organomegaly no bruits nontender cardiac exam with no neck vein distension and good bilateral carotid upstrokes no gallops or murmurs Results Labs CBC & Chem 7: 07/01/20 05:26 07/01/20 05:26 Labs: Short CBC 07/01/20 Range/Units 05:26 WBC 36.3 H* (4.8-10.8) X10*3/uL Hgb 10.8 L (12.0-16.0) g/dl Hct 37.4 (37-47) % Plt Count 423 H (160-400) X10*3/uL BMP 07/01/20 05:26 Sodium 144 Potassium 4.3 Chloride 108 Carbon Dioxide 26 BUN 87 H* Creatinine 1.24 Calcium 7.7 L Microbiology Microbiology Results: Microbiology 06/26/20 13:55 Lung Left Lower Lobe Fungal Identification - Preliminary No growth to date. 06/26/20 13:55 Lung Left Lower Lobe Fungal Identification - Preliminary No growth to date. 06/24/20 20:36 Blood - Venous Blood Culture - Final No growth after 5 days. 06/24/20 20:36 Blood - Venous Blood Culture - Final No growth after 5 days. 06/24/20 15:11 Stool Stool Culture - Final Aga albicans 06/26/20 13:55 Lung Left Lower Lobe Gram Stain - Final 06/26/20 13:55 Lung Left Lower Lobe Routine Culture - Final No growth after 2 days 06/26/20 13:55 Lung Left Lower Lobe Gram Stain - Final 06/26/20 13:55 Lung Left Lower Lobe Routine Culture - Final No growth after 2 days 06/19/20 04:07 Blood - Venous Blood Culture - Final Coag negative Staphylococcus 06/19/20 04:07 Blood - Venous Blood Culture - Final No growth after 5 days. Assessment and Plan (1) JOSIAH (acute kidney injury): Problem details: Cr is trending down Avoid nephrotoxins Keep I > O Status: Acute (2) Atelectasis of left lung: Problem details: THE CHEST XRAY TODAY SHOWS COMLETE ATLECTASIS OF LEFT LUNG , IT IS MOST LIKELY SEC TO ENDO BRONCHIAL INFLAMMATION / PLUS MUCOUS PLUGGING . NEEDS BRONCHOSCOPY AND BRONCHIAL TIOLETTING . DR ATKINSON WILL DO IT TOMORROW . I EXPLAINED TO THE PT. ABOUT THIS . Status: Acute (3) Clostridioides difficile infection: Status: Acute (4) Leukocytosis: Status: Acute (5) Cavitary pneumonia: Problem details: CONTINUE THE CURRENT ANTIBIOTICS . Status: Acute (6) Hyponatremia: Problem details: REsolved Status: Acute (7) Leukocytosis: Status: Acute (8) Anxiety: Status: Acute (9) Pneumonia: Qualifiers: Laterality: left Lung location: lower lobe of lung Pneumonia type: due to unspecified organism Qualified Code(s): J18.9 - Pneumonia, unspecified organism Status: Acute (10) COPD exacerbation: Status: Acute (11) Sepsis: Qualifiers: Sepsis acute organ dysfunction status: unspecified Sepsis type: sepsis due to unspecified organism Qualified Code(s): A41.9 - Sepsis, unspecified organism Status: Acute (12) Asthma with COPD (chronic obstructive pulmonary disease): Status: Acute at this point because she is awake enough we will attempt BiPAP and see if it stents the left mainstem bronchus and failing to improve end-tidal CO2 or degree of left lung expansion we will probably electively intubate and this way she could at least have proper pulmonary toileting
--- NOTE | 2020-07-01 15:58 | HO.PM.IMPN ---
Subjective Subjective Date of Service: 07/01/20 Interval History: patient seen in follow up of left-sided postobstructive pneumonia and atelectasis, in the morning patient was complaining of worsening shortness of breath and anxiety, received her home dose of Xanax and prior to her bronchoscopy was noted to be very lethargic and somnolent but arousable. Review of Systems General no headache , no dizziness, no fever chills. Respiratory shortness of breath. ,Gastrointestinal no nausea, no vomiting, no abdominal pain Physical Exam Vital Signs: Vital Signs: Last Vital Signs Temp 97.4 F 07/01/20 13:15 Pulse 75 07/01/20 14:00 Resp 19 07/01/20 15:01 BP 115/57 L 07/01/20 14:00 Pulse Ox 94 07/01/20 14:00 Body Mass Index 22.8 General this a.m. patient was tachypneic, anxious appearing later noted to be somnolent but arousable. pupils reactive to light Neck is supple no JVD. CVS regular rate rhythm, Respiratory diminished breath sound at left side, mild respiratory distress Gastrointestinal abdomen soft, nontender, bowel sounds audible, Extremities no clubbing cyanosis or edema. Neuro nonfocal Skin no rash Objective Data Current Medications Generic Name Dose Route Start Last Admin Trade Name Freq PRN Reason Stop Dose Admin Acetaminophen 650 mg 06/19/20 11:55 06/30/20 19:59 Acetaminophen 325 Mg Tablet PO 650 mg Q6H PRN Administration Pain, Mild (Pain Scale 1-3) Clonidine HCl 0.1 mg 06/24/20 10:14 06/28/20 09:01 Clonidine Hcl 0.1 Mg Tablet PO 0.1 mg BID PRN Administration anxiety/restlessness Protocol Docusate Sodium 100 mg 06/19/20 11:55 Docusate Sodium 100 Mg Capsule PO DAILY PRN Constipation Enoxaparin Sodium 40 mg 06/19/20 11:55 07/01/20 14:42 Enoxaparin Sodium 40 Mg/0.4 Ml Syringe SUBCUT 40 mg Q24H GURWINDER Administration Guaifenesin 1,200 mg 06/30/20 21:00 07/01/20 09:15 Guaifenesin La 600 Mg Tab.Er.12h PO 1,200 mg BID GURWINDER Administration Guaifenesin/Dextromethorphan 5 ml 06/21/20 03:55 06/22/20 09:28 Guaifenesin Dm 100/10/5 Ml 5 Ml Syrup PO 5 ml Q6H PRN Administration Cough Piperacillin Sod/Tazobactam 50 mls @ 100 mls/hr 06/24/20 16:00 07/01/20 09:43 Sod 3.375 gm/ Sodium Chloride IV Infused Q6H GURWINDER Infusion Metronidazole 500 mg in 100 mls @ 100 mls/hr 06/24/20 20:00 07/01/20 15:25 Flagyl IV Infused Q8H GURWINDER Infusion Sodium Chloride 1,000 mls @ 100 mls/hr 06/30/20 13:00 07/01/20 14:29 Ns IVCONT 100 mls/hr .Q10H GURWINDER Administration Morphine Sulfate 2 mg 06/27/20 11:08 07/01/20 05:06 Morphine Sulfate 2 Mg/Ml Cartridge IVPUSH 2 mg Q4H PRN Administration Pain, Severe (Pain Scale 7-10) Naloxone HCl 0.2 mg 07/01/20 13:55 07/01/20 12:52 Naloxone Hcl 0.4 Mg/Ml Vial IV 0.2 mg Q5M PRN Administration Sedation Omeprazole 20 mg 06/24/20 06:30 07/01/20 05:10 Omeprazole 20 Mg Capsule.Dr PO 20 mg DAILY@0630 GURWINDER Administration Ondansetron HCl 4 mg 06/19/20 11:55 Ondansetron Hcl 4 Mg/2 Ml Vial IVPUSH Q8H PRN Nausea and Vomiting Ondansetron HCl 4 mg 06/24/20 14:30 06/24/20 14:57 Ondansetron Hcl 4 Mg/2 Ml Vial IVPUSH 4 mg Q6H PRN Administration Nausea Sertraline HCl 100 mg 06/19/20 11:55 07/01/20 09:15 Sertraline Hcl 100 Mg Tablet PO 100 mg DAILY GURWINDER Administration Sodium Chloride 3 ml 06/19/20 11:55 07/01/20 14:22 0.9 % Sodium Chloride Flush 3 Ml Syringe IVFLUSH 3 ml QSHIFT GURWINDER Administration Vancomycin HCl 125 mg 06/24/20 18:15 07/01/20 12:23 Vancomycin Hcl 125 Mg Capsule PO Not Given Q6H [facility] Labs CBC & Chem 7: 07/01/20 05:26 07/01/20 05:26 Microbiology Microbiology Results: Microbiology 06/26/20 13:55 Lung Left Lower Lobe Fungal Identification - Preliminary No growth to date. 06/26/20 13:55 Lung Left Lower Lobe Fungal Identification - Preliminary No growth to date. 06/24/20 20:36 Blood - Venous Blood Culture - Final No growth after 5 days. 06/24/20 20:36 Blood - Venous Blood Culture - Final No growth after 5 days. 06/24/20 15:11 Stool Stool Culture - Final Aga albicans 06/26/20 13:55 Lung Left Lower Lobe Gram Stain - Final 06/26/20 13:55 Lung Left Lower Lobe Routine Culture - Final No growth after 2 days 06/26/20 13:55 Lung Left Lower Lobe Gram Stain - Final 06/26/20 13:55 Lung Left Lower Lobe Routine Culture - Final No growth after 2 days 06/19/20 04:07 Blood - Venous Blood Culture - Final Coag negative Staphylococcus 06/19/20 04:07 Blood - Venous Blood Culture - Final No growth after 5 days. Assessment and Plan (1) JOSIAH (acute kidney injury): Problem details: Cr is trending down Avoid nephrotoxins Keep I > O Status: Acute (2) Atelectasis of left lung: Problem details: THE CHEST XRAY TODAY SHOWS COMLETE ATLECTASIS OF LEFT LUNG , IT IS MOST LIKELY SEC TO ENDO BRONCHIAL INFLAMMATION / PLUS MUCOUS PLUGGING . NEEDS BRONCHOSCOPY AND BRONCHIAL TIOLETTING . DR LENZ WILL DO IT TOMORROW . I EXPLAINED TO THE PT. ABOUT THIS . Status: Acute (3) Clostridioides difficile infection: Status: Acute (4) Leukocytosis: Status: Acute (5) Cavitary pneumonia: Problem details: CONTINUE THE CURRENT ANTIBIOTICS . Status: Acute (6) Hyponatremia: Problem details: REsolved Status: Acute (7) Asthma with COPD (chronic obstructive pulmonary disease): Status: Acute (8) Anxiety: Status: Acute Assessment and Plan: 59-year-old female with past medical history of COPD / asthma who was admitted due to pneumonia that turned out to be cavitary pneumonia with associated PNA and marked leukocytosis and slow recovery. negative covid # Acute hypoxic and hypercapnia respiratory failure due to complete collapse of left lung patient was scheduled to undergo bronchoscopy this a.m.but noted to be somnolent and lethargic therefore ABGs obtained that showed significant acidosis since patient was somnolent therefore case discussed with pulmonology and gaming cage cashier and patient has been transferred to ICU for higher level of care # Sepsis due to cavitary pneumonia s/p bronch on 06/[address] Lenz and found to have cavitary PNA, with air-fluid levels in left lower lobe suggestive of postobstructive process, he was able to open up the airways and did drained pus from the left lower lobe airway. bronchial specimen showed no fungal growth, AFB is pending, Gram stain and culture showed no growth -She received Levaquin x 1 on 06/19 in ED -she was on Ceftriaxone and Azithromycin for CAP from 06/19 to 06/24 -on 06/24, she was started on Vacomycin, Flagyl and Zosyn -Vanco discontinue d/t toxic level and renal failure -ID recommend total of 2 to 3 weeks of Abx, for now will continue IV Zosyn and Flagyl # COPD / asthma exacerbation--has completed 10 days of steroid,continue bronchodilators and oxygen as needed # JOSIAH--likely from vancomycin toxicity. Creatinine went from 0.95 on 06/27 to 1.69 on 06/28 and today noted to have normal creatinine #C dif--diagnosed 06/24. Has been on PO Vanco D8/10, no diarrhea noted # hyponatremia 129 on 06/19--likely from SSRI. Level has been normal since. # Leukocytosis--she presented on 06/19 with WBC of 45 went irvin to 28 by 06/24, then went back up to 71 on 06/27. This is likely leukomoid reaction from many source including pulmonary infection, steroid and C dif. level is now trending down again at 36.3 today. She was seen by Dr. Starr with some ongoing work up to rule CML, workup pending # Anxiety - continue p.r.n. Xanax hold for sedation # Back pain-- continue Oxycodone. DVT prophylaxis Lovenox
--- NOTE | 2020-07-01 16:00 | XR_ITS ---
EXAMINATION: XR CHEST CLINICAL INFORMATION: Left lung atelectasis. COMPARISON: Chest x-ray 06/30/2020. CT of chest 06/24/2020 TECHNIQUE: Frontal view of the chest was obtained. 4:11 PM FINDINGS: There continues to be complete white out of left hemithorax unchanged since chest x-ray 06/30/2020 there is shift of mediastinal structures to the right is unchanged since prior chest x-ray. There is no pneumothorax. The right lung is normally aerated. XR/XR chest 1V IMPRESSION: No change since chest x-ray 06/30/2020. Complete white out of left hemithorax with mediastinal shift to the right.
[2020-07-01 17:08] LABS: PCO2 VBG 83 mmhg
[2020-07-01 17:10] LABS: HCO3 VBG 30 mmol/L; Oxygen Saturation VBG 74.2 %; PO2 VBG 37 mmhg
[2020-07-01 17:13] LABS: Blood Gas Serial # 5396
[2020-07-01 17:15] LABS: pH VBG 7.17 (7.32-7.43)
--- NOTE | 2020-07-01 19:55 | XR_ITS ---
EXAMINATION: XR CHEST CLINICAL INFORMATION: Confirm line and tube placement COMPARISON: 07/01/2020 at 4:11 PM TECHNIQUE: Frontal view of the chest was obtained at 7:59 PM. FINDINGS: New endotracheal tube is seen. The yaw is not well visualized but the endotracheal tube appears to be in the right mainstem bronchus. There is new aeration at the left lung apex but no lung markings are seen. The appearance is concerning for a pneumothorax. Otherwise there is marked density in the left midlung and left lung base. There continues to be shift of the mediastinum to the right. The right lung and pleural spaces are clear. XR/XR chest 1V IMPRESSION: New endotracheal tube seen. The yaw is not well visualized but the tip of the tube appears to be in the right mainstem bronchus. Recommend repositioning. New from the earlier film, there is lucency at the left lung apex. Although no pleural line is seen, there are no pulmonary markings raising concern for a possible pneumothorax. Per the provider caring for the patient, the patient did NOT have an interval procedure (thoracentesis). This critical result was discussed with Anh HUBER by telephone at 07/01/2020 8:48 PM and it was ascertained that the content and urgency of the report was understood at the time of direct communication.
--- NOTE | 2020-07-01 19:58 | PC.NURSE ---
Late Entry: 914 Pt was anxious about procedure today, restless in bed, increased breathing, stating she was nervous. Gave PRN xanax per MD order. Pt was able to relax. at 1000 pt transfered to w/ for transfer to [facility] for bronchoscopy and bronchial tolieting. Pt was able to amblate a few steps to w/c. 1200 Recieved call from [facility] stating guru pt is lethargic and proedure was not going to be done. ABGs were taken and pt transfered up to floor. When on floor pt VS were stable, pt responsive to shaking/name, able to answer simple questions. Pt's work of breathing increasing. ABGs back pH 7.12, CO2 81, O2 91 HCO3 26. MD aware, speaking with [employer] sales representative. Pt more lethargic, MD in to see pt. transfer to ICU initiated.
--- NOTE | 2020-07-01 19:59 | W.PM.CCHP ---
Procedures Intubation Consent for Procedure: Emergent-no informed consent obtained <MAYO Hackett Last Filed: 07/01/20 20:08> Time out performed: Yes <MAYO Hackett Last Filed: 07/01/20 20:08> Sedative: propofol <MAYO aHckett Last Filed: 07/01/20 20:08> Mg given: 100 <MAYO Hackett Last Filed: 07/01/20 20:08> Paralytic: rocuronium <MAYO Hackett Last Filed: 07/01/20 20:08> Mg given: 30 <MAYO Hackett Last Filed: 07/01/20 20:08> Laryngoscope: fiber optic video scope <MAYO Hackett Last Filed: 07/01/20 20:08> ET tube size: 7.5 <MAYO Hackett Last Filed: 07/01/20 20:08> Tube secured depth (cm): 23 <MAYO Hackett Last Filed: 07/01/20 20:08> Tube secured location: lips <MAYO Hackett Last Filed: 07/01/20 20:08> Tube placement confirmation: visualized tube passing through cords and confirmation by capnometry <MAYO Hackett Last Filed: 07/01/20 20:08> Patient tolerated procedure: well and no complications <MAYO Hackett Last Filed: 07/01/20 20:08>
[2020-07-01] MEDS: Acetylcysteine 10 % 400 MG/4 ML VIAL INHALE (20:19)
[2020-07-01] MEDS: Albuterol/Iprat 2.5/0.5MG 3 ML AMPUL.NEB INHALE (20:19)
--- NOTE | 2020-07-01 20:49 | XR_ITS ---
EXAMINATION: XR CHEST CLINICAL INFORMATION: Line placement COMPARISON: Chest x-ray 07/01/2020, 7:59 PM TECHNIQUE: Frontal view of the chest was obtained. 8:57 PM FINDINGS: Tubes and lines: 1. Endotracheal tube 3.5 centers above yaw. 2. Left IJ catheter tip in superior vena cava. As previously noted on prior chest x-ray there is persistent lucency at the left lung apex without definite lung markings. Pneumothorax is therefore not excluded, however, lack of air-fluid level on the upright view within the left hemithorax suggesting there is no pleural-based air, no pneumothorax. Continued dense left hemithorax in the mid lower chest which remains unchanged since prior study. Right lung normally aerated. XR/XR chest 1V IMPRESSION: 1. Endotracheal tube 3.5 centers above yaw. 2. Left IJ catheter tip in superior vena cava. 3. Persistent dense left hemithorax. 4. Persistent lucency at the left lung apex similar prior chest x-ray today.
--- NOTE | 2020-07-01 21:08 | W.PM.CCHP ---
Procedures Central Line Placement Left IJ: Central Line Comments: Initially, an attempt was made to place in the RIJ but a small hematoma formed, attempt was stopped, pressure was held, bleeding controlled. CXR done to confirm no pneumothorax. Then, a second attempt was made but this time, in the [facility]. <MAYO Hackett - Last Filed: 07/03/20 05:02> Consent for Procedure: Emergent-no informed consent obtained <MAYO Hackett Last Filed: 07/03/20 05:02> Time out performed: Yes <MAYO Hackett Last Filed: 07/03/20 05:02> Sterile Technique Used: Yes <MAYO Hackett Last Filed: 07/03/20 05:02> Patient placed on monitor/pulse ox: Yes <MAYO Hackett Last Filed: 07/03/20 05:02> MD prep: mask, gown and gloves <MAYO Hackett Last Filed: 07/03/20 05:02> Central line prep: Chlorhexidine scrub and sterile drapes applied <MAYO Hackett - Last Filed: 07/03/20 05:02> Ultrasound used for placement: Yes <MAYO Hackett Last Filed: 07/03/20 05:02> Central line lumen inserted: triple <MAYO Hackett - Last Filed: 07/03/20 05:02> Post procedure: sutured in place, good blood return, all ports aspirated, flushed, capped and sterile dressing applied <MAYO Hackett - Last Filed: 07/03/20 05:02> Post procedure x-ray: tip of catheter in good position and no pneumothorax seen <MAYO Hackett Last Filed: 07/03/20 05:02> Patient tolerated procedure: well and no complications <MAYO Hackett - Last Filed: 07/03/20 05:02>
[2020-07-01] MEDS: propofoL 1,000 MG/100 ML VIAL 10.21 MG IVCONT ×2 (21:33→21:36)
[2020-07-01] MEDS: Phenylephrine HCL 20 MG in 0.9 % Sodium Chloride 250 ML 128.59 MG IVCONT ×2 (21:33→21:36)
[2020-07-02] VITALS (32 sets, daily range): BP systolic 98–145; BP diastolic 38–69; PULSE 65–88; RESP 10–23; TEMP 36–37.4; O2SAT 95–100; BMI 22.8
--- NOTE | 2020-07-02 | XR_ITS ---
EXAMINATION: XR CHEST CLINICAL INFORMATION: New chest tube. COMPARISON: Chest 07/02/2020 TECHNIQUE: Frontal view of the chest was obtained. FINDINGS: The new left chest tube catheter tip is at the base of the left hemithorax. There is still visible pneumothorax which extends throughout the entire lung with collapse left lung medially. The right lung is expanded and clear. Position of left jugular central catheter in the mid SVC, endotracheal tube tip approximately 3.56 any visible acute yaw and enteric tube tip below the diaphragm is unchanged. Heart size is normal. No gross bony abnormality. XR/XR chest 1V IMPRESSION: Interval slight worsening of the left pneumothorax in spite of left basilar chest tube. Question patency of the left chest tube. The left lobe is collapsed medially. No change in the left central venous catheter, endotracheal tube and enteric tube.
[2020-07-02 00:01] LABS: PCO2 VBG 54 mmhg; PO2 VBG 54 mmhg; pH VBG 7.25 (7.32-7.43)
[2020-07-02 00:02] LABS: Base Excess VBG -4.3 mmol/L; HCO3 VBG 23 mmol/L; Oxygen Saturation VBG 88.3 %
[2020-07-02 00:04] LABS: Basophils Absolute Auto 0.1 X10*3/uL (0.0-0.2); Basophils Percent Auto 0.2 % (0-2); Hemoglobin 10.5 g/dl (12.0-16.0); Imm Gran Abs Auto 0.87 X10*3/uL (0.00-0.03); Imm Gran Pct Auto 2.2 % (0.0-0.4); Lymphocytes Absolute Auto 0.7 X10*3/uL (1.2-4.9); Lymphocytes Percent Auto 1.8 % (20-40); MANUAL DIFF FLAG SCAN; Mean Corpuscular HGB Conc 29.2 g/dl (31.0-35.0); Mean Corpuscular Hemoglobin 27.2 pg (27.0-33.0); Mean Corpuscular Volume 93.3 fL (80-98); Mean Platelet Volume 10.4 fL (9.4-12.3); Monocytes Absolute Auto 1.6 X10*3/uL (0.1-1.2); Monocytes Percent Auto 4.2 % (2-11); Neutrophils Percent Auto 91.6 % (45-73); Platelet Count 481 X10*3/uL (160-400); Red Blood Count 3.86 X10*6/uL (4.20-5.50); Red Cell Distribution Width 14.1 % (11.0-16.0); SCAN SMEAR FLAG 1
--- NOTE | 2020-07-02 00:05 | W.PM.CCHP ---
Procedures Chest Tube Chest Tube 1: Chest tube location: Mid-Axillary Chest Size of tube: 14 Chest tube procedure: Yes betadine prep and sterile drapes applied Tube sutured to skin: Yes Sterile dressing applied: Yes Anesthesia: 1% Lidocaine Incision made with: #11 blade Post procedure: sutured to skin and sterile dressing applied Pan of air heard: Yes Tube Drainage: fluid Amount of initial drainage (ml): 2,500 Post procedure CXR?: Yes Patient tolerated procedure: Yes Progress: 2500 cc of pus was drained and sent for appropriate labs with improved respiratory acidosis in other words relief of space
[2020-07-02 00:06] LABS: White Blood Count 39.2 X10*3/uL (4.8-10.8)
[2020-07-02 00:14] LABS: SLIDE REVIEW VERIFIED
--- NOTE | 2020-07-02 01:29 | XR_ITS ---
EXAMINATION: XR CHEST CLINICAL INFORMATION: Chest tube placement COMPARISON: 07/01/2020 TECHNIQUE: Frontal view of the chest was obtained. FINDINGS: Interval placement of a left chest tube with subtotal evacuation of the large left hydropneumothorax, with stable size of the pneumothorax component superiorly. The mediastinum is now shifted slightly leftward. Endotracheal tube terminates 3.6 cm above the yaw. Left internal jugular central venous catheter terminates within the mid SVC. Right lung clear. XR/XR chest 1V IMPRESSION: New left chest tube partially evacuates the pleural fluid component of the large left hydropneumothorax. Mediastinum is now shifted slightly leftward.
[2020-07-02] MEDS: Lidocaine HCl 2 % MPF 5 ML VIAL SUBCUT ×2 (01:59)
[2020-07-02] MEDS: fentaNYL citrate/PF 100 MCG/2 ML VIAL 50 MCG IVPUSH ×2 (02:00)
[2020-07-02] MEDS: 0.9 % Sodium Chloride Flush 3 ML SYRINGE IVFLUSH ×2 (02:01→19:43)
[2020-07-02] MEDS: Rocuronium Bromide 50 MG/5 ML VIAL 30 MG IVPUSH (02:01)
[2020-07-02] MEDS: propofoL 1,000 MG/100 ML VIAL 10.21 MG IVCONT (02:03)
[2020-07-02] MEDS: Chlorhexidine Gluc Oral Rinse 15 ML MOUTHWASH BUCCAL ×4 (02:04→19:43)
[2020-07-02] MEDS: 0.9 % Sodium Chloride 1,000 ML 100 ML IVCONT ×3 (02:04→19:43)
[2020-07-02 02:20] LABS: BF Shift QC OK YES; Man Diluent Bkgrd OK YES; RBC Pleural Fluid 0.062 X10*3/uL
--- NOTE | 2020-07-02 02:55 | PC.NURSE ---
DAUGHTER AT BEDSIDE FOR VISIT. INTUBATED APPROX 1900. 7.5 @21 PROPOFOL FOR SEDATION. JACINDA FOR SEDATION INDUCED HYPOTENSION. CENTRAL LINE PLACE. TO CT WITH RN HEATING ELEMENT BUILDER AND RT. LEFT CHEST TUBE PLACED. 14FR. ATRIUM DEVICE CHANGED. 2L PURULENT BROWN/BLOOD TINGED OUTPUT IMMEDIATELY. URINE OUTPUT 30-50 CC/HR FUNGAL INFECTION TO GROIN AND BILATERAL INNER GLUTEAL CLEFT. BARRIER CREAM APPLIED. PHOTOS TAKEN. NYSTATIN ORDERED/UNAVAIL FROM PHARMACY. LEUNG/WHITE CURDLIKE DISCHARGE FROM VAGINA. AWARE OF ABOVE.
[2020-07-02] MEDS: metroNIDAZOLE/NS 500 MG/100 ML PIGGYBACK 100 MG IV ×3 (05:11→19:43)
[2020-07-02] MEDS: Piperacillin Sodium/Tazobactam 3.375 GM in 0.9 % Sodium Chloride 50 ML IV ×4 (05:13→22:49)
[2020-07-02] MEDS: Pantoprazole Sodium 40 MG/10 ML VIAL IVPUSH (05:14)
[2020-07-02 05:27] LABS: Basophils Percent Auto 0.2 % (0-2); Hematocrit 30.6 % (37-47); Hemoglobin 9.2 g/dl (12.0-16.0); Imm Gran Abs Auto 0.37 X10*3/uL (0.00-0.03); Imm Gran Pct Auto 1.4 % (0.0-0.4); Lymphocytes Absolute Auto 0.8 X10*3/uL (1.2-4.9); Lymphocytes Percent Auto 2.8 % (20-40); MANUAL DIFF FLAG SCAN; Mean Corpuscular HGB Conc 30.1 g/dl (31.0-35.0); Mean Corpuscular Hemoglobin 27.4 pg (27.0-33.0); Mean Corpuscular Volume 91.1 fL (80-98); Mean Platelet Volume 10.9 fL (9.4-12.3); Monocytes Absolute Auto 1.1 X10*3/uL (0.1-1.2); Monocytes Percent Auto 4.2 % (2-11); Neutrophils Absolute Auto 24.3 X10*3/uL (2.0-8.3); Neutrophils Percent Auto 91.4 % (45-73); Platelet Count 359 X10*3/uL (160-400); Red Blood Count 3.36 X10*6/uL (4.20-5.50); Red Cell Distribution Width 14.1 % (11.0-16.0); SCAN SMEAR FLAG 1; White Blood Count 26.6 X10*3/uL (4.8-10.8)
[2020-07-02 05:35] LABS: INTERNATIONAL NORM RATIO 1.5 (0.9-1.1); Prothrombin Time 18.4 SEC (10.8-13.0)
[2020-07-02 05:38] LABS: Partial Thromboplastin Time 35.3 SEC (24.1-38.0)
[2020-07-02 05:51] LABS: Base Excess VBG -3.5 mmol/L; HCO3 VBG 22 mmol/L; Oxygen Saturation VBG 79.4 %; PCO2 VBG 43 mmhg; PO2 VBG 41 mmhg; pH VBG 7.33 (7.32-7.43)
[2020-07-02 06:04] LABS: Anion Gap 16 (12-20); Blood Urea Nitrogen 93 mg/dL (9-16); Calcium 7.2 mg/dL (8.4-10.2); Carbon Dioxide 22 mmol/L (22-29); Chloride 111 mmol/L (96-108); Creatinine Clr Calc Pharmacy 35.8; Estimated Glomerular Filt Rate 40; Glucose Random 95 mg/dL (60-115); Magnesium 2.6 mg/dL (1.6-2.6); Phosphorus 3.3 mg/dL (2.7-4.5); Potassium 3.8 mmol/l (3.3-5.1); Sodium 145 mmol/L (135-145)
[2020-07-02] MEDS: vancomycin HCL Oral Solution 125 MG/5 ML SOLN.RECON PO ×3 (09:02→19:43)
[2020-07-02] MEDS: Sertraline HCL 100 MG TABLET PO (09:05)
--- NOTE | 2020-07-02 09:09 | PM.PNNEP ---
Subjective Subjective Date of Service: 07/02/20 Principal diagnosis: Cavitary Pneumonia Lt lower lobe . Interval history: Eventsnoted Transferred to ICU s/p Chest drainage Intubated Physical Exam Vital Signs: Vital Signs: Last Vital Signs Temp 97.0 F 07/02/20 08:00 Pulse 78 07/02/20 08:00 Resp 22 H 07/02/20 08:00 BP 133/55 L 07/02/20 08:00 Pulse Ox 95 07/02/20 08:00 Body Mass Index 22.8 Const: General: ill appearing Neck: Neck: Yes supple Resp: Auscultation: diminished lung sounds Cardio: Heart sounds: no gallops and no rubs Neuro: Motor exam (neuro): No Asterixis during motor activity present Assessment & Plan Assessment and plan (1) JOSIAH (acute kidney injury): Problem details: Minimal uptick in BUN/Cr Avoid nephrotoxins and hypotension Keep I > O Status: Acute
[2020-07-02] MEDS: propofoL 1,000 MG/100 ML VIAL 15.31 MG IVCONT ×3 (09:19→19:43)
--- NOTE | 2020-07-02 09:45 | P.PNPL_ITS ---
Subjective Subjective Date of Service: 07/02/20 Interval history: this patient is being followed by Pulmonary for cavitary pneumonia left lower lobe, has had bronchoscopy with bronchial washing, cytology negative for malignant cells. since yesterday she had developed complete atelectasis of the left lung. developed change in the mental status and acute on chronic respiratory failu re. patient transferred to intensive care unit. BiPAP tried but did not work. patient has been intubated and on vent support since yesterday. patient had thoracenteses with drainage of large amount of fluid, subsequently developed pneumothorax. she has a chest tube in, not draining much fluid at present. chest x-ray shows that she has a large pneumothorax, Objective Data Labs CBC & Chem 7: 07/02/20 04:33 07/02/20 04:33 Labs: Laboratory Results - last 24 hr 07/01/20 07/01/20 07/01/20 11:50 14:19 16:36 WBC RBC Hgb Hct MCV MCH MCHC RDW Plt Count MPV Immature Gran % (Auto) Neut % (Auto) Lymph % (Auto) [place] % (Auto) Eos % (Auto) Baso % (Auto) Lymph # (Auto) [place] # (Auto) Eos # (Auto) Baso # (Auto) Abs Immat Gran (auto) Absolute Neuts (auto) Absolute Nucleated RBC Nucleated RBC % (auto) Smear Tech's Comments PT INR APTT ABG pH 7.12 L* 7.12 L* ABG pCO2 81 H* 88 H* ABG pO2 91 52 L ABG HCO3 26 28 H ABG O2 Saturation 96.7 85.0 ABG Base Excess -4.7 -3.3 VBG pH 7.17 L* VBG pCO2 83 VBG pO2 37 VBG HCO3 30 VBG O2 Saturation 74.2 VBG Base Excess -1.0 Oxygen Given 3 L 2 L Sodium Potassium Chloride Carbon Dioxide Anion Gap BUN Creatinine Estim Creat Clear Calc Estimated GFR Random Glucose Calcium Phosphorus Magnesium Pleural WBC Pleural RBC Pleural Neutrophils 07/01/20 07/01/20 07/02/20 23:38 23:49 01:38 WBC 39.2 H* RBC 3.86 L Hgb 10.5 L Hct 36.0 L MCV 93.3 MCH 27.2 MCHC 29.2 L RDW 14.1 Plt Count 481 H MPV 10.4 Immature Gran % (Auto) 2.2 H Neut % (Auto) 91.6 H Lymph % (Auto) 1.8 L [place] % (Auto) 4.2 Eos % (Auto) 0.0 Baso % (Auto) 0.2 Lymph # (Auto) 0.7 L [place] # (Auto) 1.6 H Eos # (Auto) 0.0 Baso # (Auto) 0.1 Abs Immat Gran (auto) 0.87 H Absolute Neuts (auto) 36.0 H Absolute Nucleated RBC 0.000 Nucleated RBC % (auto) 0.0 Smear Tech's Comments VERIFIED PT INR APTT ABG pH ABG pCO2 ABG pO2 ABG HCO3 ABG O2 Saturation ABG Base Excess VBG pH 7.25 L VBG pCO2 54 VBG pO2 54 VBG HCO3 23 VBG O2 Saturation 88.3 VBG Base Excess -4.3 Oxygen Given Sodium Potassium Chloride Carbon Dioxide Anion Gap BUN Creatinine Estim Creat Clear Calc Estimated GFR Random Glucose Calcium Phosphorus Magnesium Pleural WBC 79.340 Pleural RBC 0.062 Pleural Neutrophils TNP 07/02/20 07/02/20 07/02/20 04:33 04:33 04:33 WBC 26.6 H RBC 3.36 L Hgb 9.2 L Hct 30.6 L MCV 91.1 MCH 27.4 MCHC 30.1 L RDW 14.1 Plt Count 359 D MPV 10.9 Immature Gran % (Auto) 1.4 H Neut % (Auto) 91.4 H Lymph % (Auto) 2.8 L [place] % (Auto) 4.2 Eos % (Auto) 0.0 Baso % (Auto) 0.2 Lymph # (Auto) 0.8 L [place] # (Auto) 1.1 Eos # (Auto) 0.0 Baso # (Auto) 0.0 Abs Immat Gran (auto) 0.37 H Absolute Neuts (auto) 24.3 H Absolute Nucleated RBC 0.000 Nucleated RBC % (auto) 0.0 Smear Tech's Comments PT 18.4 H INR 1.5 H APTT 35.3 ABG pH ABG pCO2 ABG pO2 ABG HCO3 ABG O2 Saturation ABG Base Excess VBG pH VBG pCO2 VBG pO2 VBG HCO3 VBG O2 Saturation VBG Base Excess Oxygen Given Sodium 145 Potassium 3.8 Chloride 111 H Carbon Dioxide 22 Anion Gap 16 BUN 93 H* Creatinine 1.37 Estim Creat Clear Calc 35.8 Estimated GFR 40 Random Glucose 95 Calcium 7.2 L D Phosphorus 3.3 Magnesium 2.6 Pleural WBC Pleural RBC Pleural Neutrophils 07/02/20 04:33 WBC RBC Hgb Hct MCV MCH MCHC RDW Plt Count MPV Immature Gran % (Auto) Neut % (Auto) Lymph % (Auto) [place] % (Auto) Eos % (Auto) Baso % (Auto) Lymph # (Auto) [place] # (Auto) Eos # (Auto) Baso # (Auto) Abs Immat Gran (auto) Absolute Neuts (auto) Absolute Nucleated RBC Nucleated RBC % (auto) Smear Tech's Comments PT INR APTT ABG pH ABG pCO2 ABG pO2 ABG HCO3 ABG O2 Saturation ABG Base Excess VBG pH 7.33 VBG pCO2 43 VBG pO2 41 VBG HCO3 22 VBG O2 Saturation 79.4 VBG Base Excess -3.5 Oxygen Given Sodium Potassium Chloride Carbon Dioxide Anion Gap BUN Creatinine Estim Creat Clear Calc Estimated GFR Random Glucose Calcium Phosphorus Magnesium Pleural WBC Pleural RBC Pleural Neutrophils Microbiology Microbiology Results: Microbiology 07/02/20 01:38 Pleural Fluid Gram Stain - Preliminary 06/26/20 13:55 Lung Left Lower Lobe Fungal Identification - Preliminary No growth to date. 06/26/20 13:55 Lung Left Lower Lobe Fungal Identification - Preliminary No growth to date. 06/24/20 20:36 Blood - Venous Blood Culture - Final No growth after 5 days. 06/24/20 20:36 Blood - Venous Blood Culture - Final No growth after 5 days. 06/24/20 15:11 Stool Stool Culture - Final Aga albicans 06/26/20 13:55 Lung Left Lower Lobe Gram Stain - Final 06/26/20 13:55 Lung Left Lower Lobe Routine Culture - Final No growth after 2 days 06/26/20 13:55 Lung Left Lower Lobe Gram Stain - Final 06/26/20 13:55 Lung Left Lower Lobe Routine Culture - Final No growth after 2 days 06/19/20 04:07 Blood - Venous Blood Culture - Final Coag negative Staphylococcus 06/19/20 04:07 Blood - Venous Blood Culture - Final No growth after 5 days. Review of Systems Review of Systems Yes Unobtainable due to mental status Denies Neuro-related abnormal movements Physical Exam Vital Signs: Vital Signs: Last Vital Signs Temp 96.8 F 07/02/20 09:00 Pulse 72 07/02/20 09:00 Resp 23 H 07/02/20 09:00 BP 145/50 H 07/02/20 09:00 Pulse Ox 96 07/02/20 09:00 Body Mass Index 22.8 Const: Other: sick looking, intubated, and sedated. HENMT: Other: has endotracheal tube in. Neck: Neck: Yes trachea midline and No no JVD Chest: Other: dull over the left chest. Resp: Other: right lung is well aerated, left lung only partially aerated with decreased breath sounds. Assessment and Plan Assessment and plan (1) Atelectasis of left lung: Problem details: S/P intubation , with partial expansion of lt lung . Status: Acute (2) Cavitary pneumonia: Problem details: CONTINUE THE CURRENT ANTIBIOTICS . Status: Acute (3) Pneumothorax on left: Problem details: Has developed massive Pneumothorax of the Lt chest ,sec to failure of the lung to expand , Discussed with Dr. Cano, , I think next step should be placement of a large bore chest tube , and leave it to continuous suctioning . Discussed with Dr. Lenz , and a repeat Bronchoscopy to do another bronchial lavage . Status: Acute Time Spent With Patient Time: Total time spent is greater than 50% in coordination of care (as documented) at patient's floor/unit and/or counseling patient: Time with patient: 15 - 24 minutes
[2020-07-02] MEDS: fentaNYL citrate/PF 100 MCG/2 ML VIAL IVPUSH (09:54)
--- NOTE | 2020-07-02 10:30 | XR_ITS ---
EXAMINATION: XR CHEST CLINICAL INFORMATION: New chest tube. COMPARISON: Chest 07/02/2020 TECHNIQUE: Frontal view of the chest was obtained. FINDINGS: There is interval new left chest tube with its tip at the apex. The left basilar chest tube is unchanged. There is complete resolution of left pneumothorax. Patchy opacities seen in the entire expanded left lung is clear. Support lines and catheters are normal. The right lung is clear. XR/XR chest 1V IMPRESSION: Interval complete resolution of left pneumothorax status post insertion of a second left chest tube with its tip at the apex. Patchy infiltrative changes in the expanded left lung are again visualized. The right lung remains clear. No change in rest of the support lines and catheters.
--- NOTE | 2020-07-02 10:35 | PC.NURSE ---
Received call from chemistry stating [facility] was unable to perform tests on the patient's pleural fluid sample because it was too thick. This RN reported this information to . No new orders.
--- NOTE | 2020-07-02 11:11 | MHC.CLN ---
IF TF NEEDED; RECOMMEND JEVITY AT MAX GOAL RATE 45CC/HR TO PROVIDE 1145KCALS (1414KCALS WITH SEDATION; 25KCALS/KG), 48G PROTEIN (.85G/KG), 902CC FREE WATER FROM FORMULA MONITOR RESIDUALS, TOLERANCE AND LYTES SEE ALSO CLINICAL NUTRITION ASSESSMENT
--- NOTE | 2020-07-02 11:24 | PC.NURSE ---
pt has #2 chest tube placed by Dr Jara at bedside at 1010. Pt was premedicated with Fentanyl 100 MCG . Tube secured and dressing placed with Dr Jara assistance. Pt BP dropped slightly map <[address] Jara witnessed to this and gaytan. repeat CXR done. + lung expansion and coarse lung sounds noted post insertion.
[2020-07-02] MEDS: Enoxaparin Sodium 40 MG/0.4 ML SYRINGE SUBCUT (11:58)
--- NOTE | 2020-07-02 12:25 | W.PM.CCHP ---
Procedures Chest Tube Chest Tube 2: Chest tube location: Anterior axillary Size of tube: 14 Chest tube procedure: Yes betadine prep and sterile drapes applied Tube sutured to skin: Yes Sterile dressing applied: Yes Anesthesia: 1% Lidocaine Incision made with: #11 blade Post procedure: sutured to skin and sterile dressing applied Pan of air heard: Yes Tube Drainage: Air Post procedure CXR?: Yes Patient tolerated procedure: Yes Progress: Do due to persistent left lung atelectasis and persistent nondraining large pneumothorax 2nd chest tube placed 1 interspace above the 1st anterior axillary line without complication with the pigtail in the apex completely draining the pneumothorax and chest x-ray shows complete re-expansion of the left lung
--- NOTE | 2020-07-02 13:09 | P.PNCC_ITS ---
Subjective Subjective Date of Service: 07/02/20 Interval History: 59-year-old female who was a polysubstance abuser found with compromised mental status on a number of occasions and a recent heroin overdose requiring rapid response and the came in with altered mental status that did respond to IV Narcan however blood gas still remain with profound acute hypercarbic respiratory failure and because of parking assistant complete atelectasis of the left lung along with mediastinal shift to the right raising questions about the volume of pleural fluid we had checked pleural fluid high volume complex infiltrate with what looks like air-fluid levels and possible abscess and with gradually worsening respiratory acidosis on noninvasive ventilation we intubated the patient and began aggressive pulmonary toileting and eventually asked to intubate which I did worked out without come complication and there was 79,000 white count and the laboratory unfortunately screwed up the the chemistries and pH but this was a [place] colored fluid it it truly appear to be an empyema and this way she she might want of needing further procedure so right now the Zosyn is seems to be appropriate and the preliminary from microbiology is possible anaerobic strep organism I had to place because of the tension hydropneumothorax a chest tube posteriorly and that drained off 2500 to almost 3000 cc of serosanguineous fluid mixed with pus with some improvement in the pCO2 so alveolar ventilation did improve but there was persistent severe pneumothorax and a 2nd chest tube was placed this morning and lung re-expanded [place] with possible interstitial edema from re-expansion verses infiltrate Physical Exam Vital Signs: Vital Signs: Last Vital Signs Temp 97.5 F 07/02/20 13:00 Pulse 69 07/02/20 13:00 Resp 22 H 07/02/20 13:00 BP 102/44 L 07/02/20 13:00 Pulse Ox 99 07/02/20 13:00 Body Mass Index 22.8 Const: Other: sedated and intubated intact cranial nerves and nonfocal neurologic skin is intact no breakdown no acrocyanosis increasing pre renal azotemia but adequate urine output hemodynamically excellent with normal sinus rhythm at rate 68 oxygen saturation 100% mean blood pressure 72 respirations 22 so minutes ventilatory requirements are below 10 liters/minute ever since we evacuated both fluid as well as pneumothorax Objective Data Labs CBC & Chem 7: 07/02/20 04:33 07/02/20 04:33 Labs: Laboratory Results - last 24 hr 07/01/20 07/01/20 07/01/20 14:19 16:36 23:38 WBC 39.2 H* RBC 3.86 L Hgb 10.5 L Hct 36.0 L MCV 93.3 MCH 27.2 MCHC 29.2 L RDW 14.1 Plt Count 481 H MPV 10.4 Immature Gran % (Auto) 2.2 H Neut % (Auto) 91.6 H Lymph % (Auto) 1.8 L [place] % (Auto) 4.2 Eos % (Auto) 0.0 Baso % (Auto) 0.2 Lymph # (Auto) 0.7 L [place] # (Auto) 1.6 H Eos # (Auto) 0.0 Baso # (Auto) 0.1 Abs Immat Gran (auto) 0.87 H Absolute Neuts (auto) 36.0 H Absolute Nucleated RBC 0.000 Nucleated RBC % (auto) 0.0 Smear Tech's Comments VERIFIED PT INR APTT ABG pH 7.12 L* ABG pCO2 88 H* ABG pO2 52 L ABG HCO3 28 H ABG O2 Saturation 85.0 ABG Base Excess -3.3 VBG pH 7.17 L* VBG pCO2 83 VBG pO2 37 VBG HCO3 30 VBG O2 Saturation 74.2 VBG Base Excess -1.0 Oxygen Given 2 L Sodium Potassium Chloride Carbon Dioxide Anion Gap BUN Creatinine Estim Creat Clear Calc Estimated GFR Random Glucose Calcium Phosphorus Magnesium Pleural WBC Pleural RBC Pleural Neutrophils 07/01/20 07/02/20 07/02/20 23:49 01:38 04:33 WBC 26.6 H RBC 3.36 L Hgb 9.2 L Hct 30.6 L MCV 91.1 MCH 27.4 MCHC 30.1 L RDW 14.1 Plt Count 359 D MPV 10.9 Immature Gran % (Auto) 1.4 H Neut % (Auto) 91.4 H Lymph % (Auto) 2.8 L [place] % (Auto) 4.2 Eos % (Auto) 0.0 Baso % (Auto) 0.2 Lymph # (Auto) 0.8 L [place] # (Auto) 1.1 Eos # (Auto) 0.0 Baso # (Auto) 0.0 Abs Immat Gran (auto) 0.37 H Absolute Neuts (auto) 24.3 H Absolute Nucleated RBC 0.000 Nucleated RBC % (auto) 0.0 Smear Tech's Comments PT INR APTT ABG pH ABG pCO2 ABG pO2 ABG HCO3 ABG O2 Saturation ABG Base Excess VBG pH 7.25 L VBG pCO2 54 VBG pO2 54 VBG HCO3 23 VBG O2 Saturation 88.3 VBG Base Excess -4.3 Oxygen Given Sodium Potassium Chloride Carbon Dioxide Anion Gap BUN Creatinine Estim Creat Clear Calc Estimated GFR Random Glucose Calcium Phosphorus Magnesium Pleural WBC 79.340 Pleural RBC 0.062 Pleural Neutrophils TNP 07/02/20 07/02/20 07/02/20 04:33 04:33 04:33 WBC RBC Hgb Hct MCV MCH MCHC RDW Plt Count MPV Immature Gran % (Auto) Neut % (Auto) Lymph % (Auto) [place] % (Auto) Eos % (Auto) Baso % (Auto) Lymph # (Auto) [place] # (Auto) Eos # (Auto) Baso # (Auto) Abs Immat Gran (auto) Absolute Neuts (auto) Absolute Nucleated RBC Nucleated RBC % (auto) Smear Tech's Comments PT 18.4 H INR 1.5 H APTT 35.3 ABG pH ABG pCO2 ABG pO2 ABG HCO3 ABG O2 Saturation ABG Base Excess VBG pH 7.33 VBG pCO2 43 VBG pO2 41 VBG HCO3 22 VBG O2 Saturation 79.4 VBG Base Excess -3.5 Oxygen Given Sodium 145 Potassium 3.8 Chloride 111 H Carbon Dioxide 22 Anion Gap 16 BUN 93 H* Creatinine 1.37 Estim Creat Clear Calc 35.8 Estimated GFR 40 Random Glucose 95 Calcium 7.2 L D Phosphorus 3.3 Magnesium 2.6 Pleural WBC Pleural RBC Pleural Neutrophils Microbiology Microbiology Results: Microbiology 07/02/20 01:38 Pleural Fluid Gram Stain - Final 07/02/20 01:38 Pleural Fluid Routine Culture - Preliminary Culture in progress. 07/01/20 20:30 Sputum - Suctioned Gram Stain - Final 07/01/20 20:30 Sputum - Suctioned Sputum Culture - Preliminary Culture in progress. 06/26/20 13:55 Lung Left Lower Lobe Fungal Identification - Preliminary No growth to date. 06/26/20 13:55 Lung Left Lower Lobe Fungal Identification - Preliminary No growth to date. 06/24/20 20:36 Blood - Venous Blood Culture - Final No growth after 5 days. 06/24/20 20:36 Blood - Venous Blood Culture - Final No growth after 5 days. 06/24/20 15:11 Stool Stool Culture - Final Aga albicans 06/26/20 13:55 Lung Left Lower Lobe Gram Stain - Final 06/26/20 13:55 Lung Left Lower Lobe Routine Culture - Final No growth after 2 days 06/26/20 13:55 Lung Left Lower Lobe Gram Stain - Final 06/26/20 13:55 Lung Left Lower Lobe Routine Culture - Final No growth after 2 days 06/19/20 04:07 Blood - Venous Blood Culture - Final Coag negative Staphylococcus 06/19/20 04:07 Blood - Venous Blood Culture - Final No growth after 5 days. Progress Note: A&P Assessment and plan (1) Pneumothorax on left: Problem details: Has developed massive Pneumothorax of the Lt chest ,sec to failure of the lung to expand , Discussed with Dr. Cano, , I think next step should be placement of a large bore chest tube , and leave it to continuous suctioning . Discussed with Dr. Lenz , and a repeat Bronchoscopy to do another bronchial lavage . Status: Acute (2) JOSIAH (acute kidney injury): Problem details: Minimal uptick in BUN/Cr Avoid nephrotoxins and hypotension Keep I > O Status: Acute (3) Atelectasis of left lung: Problem details: S/P intubation , with partial expansion of lt lung . Status: Acute (4) Clostridioides difficile infection: Status: Acute (5) Leukocytosis: Status: Acute (6) Hyponatremia: Problem details: REsolved Status: Acute (7) Cavitary pneumonia: Problem details: CONTINUE THE CURRENT ANTIBIOTICS . Status: Acute (8) Leukocytosis: Status: Acute (9) Anxiety: Status: Acute (10) Pneumonia: Status: Acute (11) COPD exacerbation: Status: Acute (12) Sepsis: Status: Acute (13) Asthma with COPD (chronic obstructive pulmonary disease): Status: Acute Assessment and Plan: so patient will remain on albuterol and Mucomyst treatments with frequent suctioning and toileting and possible bronchoscopy with Pulmonary in in the morning but for now with re-expanded lung hemodynamics and respiratory status a much more stable and this might all have just simply an aspiration origin continue IV Zosyn and also oral vancomycin for C diff colitis patient's suppose it criteria for sepsis with tachycardia white count etc. I see the white count is having improved over several days patient did not have septic hemodynamics and I believe that these indicators represented the complete loss of left lung function with very poor alveolar ventilation but not sepsis manifestation and were partly from the hemodynamic effect of this tension hydrop neumothorax which was relieved by the mechanics of the chest to Time Spent With Patient Time: Total time spent is greater than 50% in coordination of care (as documented) at patient's floor/unit and/or counseling patient: Total time spent with greater than 50% in coordination of care (as documented) a t patient's floor/unit and/or counseling patient:: 75 No Severe Sepsis: No Severe Sepsis
--- NOTE | 2020-07-02 13:51 | PC.NURSE ---
Dr Jara aware that pt has low urine output and cap refill >[address] Jara would like a CVP line set up for pt
[2020-07-02] MEDS: Nystatin Powder 15 GM BOTTLE 1 APPL TOPICAL ×2 (16:15→22:36)
--- NOTE | 2020-07-02 17:31 | PC.NURSE ---
Pt found to have moderate amt of eliseo bloody drainage to chest tube site #, in Midaxillary line. Dr Jara notified. insertion site dressed with xeroform gauze and abd pads. nystatin powder delayed this shift as unable to locate powder. Also propofol was increased to 45 at 1440 DT pt eyes opening and responding to this nurse during care. Pt had intermitent episodes of MAP < 65. Dr Jara aware. 1730 Dr Jara requested that suction be turned to -10 on each Chest tube as Lung is expanded and drainage is minimal this shift. Pt has small abrasion to left elbow and multiple bruises noted to lower abd and peripheral IV sites. Peripheral IV on left wrist DC this AM due to bent cather. removed intact. New dressing to pt right IJ area . Pt vent setting AC 22 TV400 FiO2 35% Zero PEEP. Pt has coarse exp rub BiLat at this writting. Et 7.5 21 @lip
--- NOTE | 2020-07-02 17:33 | PM.CNGS ---
History of Present Illness Consult details Consult date: 07/02/20 Reason for consult: other (Pleural effusion ) Requesting physician: Rene Jara Narrative: This is a late entry for this note from an examination performed earlier this morning. Patient is a 59-year-old female who is a polysubstance abuser under compromised mental status on number of occasions and a recent heroin overdose requiring rapid response found to have hypercarbic respiratory failure [place] intub[place], [place] [address] which has trended downward and now remains 24,[address] was performed after insertion of a triple-lumen which showed a large left-sided hydropneumothorax with mediastinal shift to the right, for which thoracic surgery was consulted for. Dr. Jara ICU puttier placed a chest tube early this morning that drained off 2500 cc of a Gir[place] colored fluid. Patient's pCO2 alveolar ventilation did improve but there is persistent severe pneumothorax and a 2nd chest tube was placed once again by Dr. Jara followed by a chest x-ray which showed near complete resolution of left pneumothorax with 2nd chest tube tip at the apex. Review of Systems Review of Systems: Yes Unobtainable due to mental status Neurologic: Denies Neuro-related abnormal movements PMFSH Past Medical History Medical History (Updated 07/02/20 @ 18:43 by MAYO Morrow) Anxiety Asthma with COPD (chronic obstructive pulmonary disease) Atelectasis of left lung Atelectasis of left lung Cavitary pneumonia Pneumothorax on left Functional capacity: independent ambulation Family History Family History Other Family history non-contributory Social History Social History Household Members: Spouse Housing: House Do you presently have visiting nurse or other home services: No Smoking Status: Former smoker Use of substances other than those prescribed or required for medical reasons: No Substance Use Type Other:: denies use Currently Displaying Signs/Symptoms of Drug Intoxication Withdrawal: No Have you been hit, kicked, punched, or otherwise hurt by someone within the past year? If so, by whom?: No Do you feel safe in your current relationship?: Yes Is there a partner from a previous relationship who is making you feel unsafe now?: No Are you made to feel afraid or neglected: No Advance Directives: No Do you have thoughts of harming others: None Do you have a plan to hurt others: No Plan Recently lost weight without trying: Unsure service: No Current occupational status: unemployed Meds Allergies Allergy/AdvReac Type Severity Reaction Status Date / Time No Known Allergies Allergy Verified 06/19/20 13:41 [No Known Allergies*] latex Allergy Unknown rash Uncoded 06/19/20 05:58 Home Medications Medication Instructions Recorded Confirmed Type alprazolam 1 mg PO BID PRN 06/19/20 06/19/20 History fluticasone propionate [Flovent 2 puff INHALATION BID 06/19/20 06/19/20 History HFA] ibuprofen 600 mg PO TID 06/19/20 06/19/20 History ipratropium-albuterol 3 ml INHALATION NEEDED 06/19/20 06/19/20 History sertraline 100 mg PO DAILY 06/19/20 06/19/20 History umeclidinium [Incruse Ellipta] 62.5 mcg INHALATION DAILY 06/19/20 06/19/20 History Physical Exam Vital Signs: Vital Signs: Last Vital Signs Temp 97.3 F 07/02/20 17:00 Pulse 73 07/02/20 17:00 Resp 22 H 07/02/20 17:00 BP 128/51 L 07/02/20 17:00 Pulse Ox 100 07/02/20 17:00 Body Mass Index 22.8 Const: Other: Intubated and sedated HENMT: Head: Yes normal to inspection Neck: Neck: Yes trachea midline Chest: Chest palpation & inspection: normal inspection of the chest Resp: Other: Breath sounds diminished on long left side with rhonchi appreciated on right. Cardio: Jugular venous distension: no JVD Rhythm: regular rhythm Heart sounds: S1 normal heart sound present and S2 normal heart sound present GI: Inspection: Yes normal to inspection Palpation (GI): Soft to palpation Extrem: General: Yes normal to inspection and Yes no clubbing, cyanosis or edema Results Labs Result diagrams: 07/02/20 04:33 07/02/20 04:33 Labs: Abnormal lab results 07/01/20 07/01/20 07/02/20 Range/Units 23:38 23:49 04:33 WBC 39.2 H* 26.6 H (4.8-10.8) X10*3/uL RBC 3.86 L 3.36 L (4.20-5.50) X10*6/uL Hgb 10.5 L 9.2 L (12.0-16.0) g/dl Hct 36.0 L 30.6 L (37-47) % MCHC 29.2 L 30.1 L (31.0-35.0) g/dl Plt Count 481 H (160-400) X10*3/uL Immature Gran % (Auto) 2.2 H 1.4 H (0.0-0.4) % Neut % (Auto) 91.6 H 91.4 H (45-73) % Lymph % (Auto) 1.8 L 2.8 L (20-40) % Lymph # (Auto) 0.7 L 0.8 L (1.2-4.9) X10*3/uL [place] # (Auto) 1.6 H (0.1-1.2) X10*3/uL Abs Immat Gran (auto) 0.87 H 0.37 H (0.00-0.03) X10*3/uL Absolute Neuts (auto) 36.0 H 24.3 H (2.0-8.3) X10*3/uL PT (10.8-13.0) SEC INR (0.9-1.1) VBG pH 7.25 L (7.32-7.43) Chloride (96-108) mmol/L BUN (9-16) mg/dL Calcium (8.4-10.2) mg/dL 07/02/20 07/02/20 Range/Units 04:33 04:33 WBC (4.8-10.8) X10*3/uL RBC (4.20-5.50) X10*6/uL Hgb (12.0-16.0) g/dl Hct (37-47) % MCHC (31.0-35.0) g/dl Plt Count (160-400) X10*3/uL Immature Gran % (Auto) (0.0-0.4) % Neut % (Auto) (45-73) % Lymph % (Auto) (20-40) % Lymph # (Auto) (1.2-4.9) X10*3/uL [place] # (Auto) (0.1-1.2) X10*3/uL Abs Immat Gran (auto) (0.00-0.03) X10*3/uL Absolute Neuts (auto) (2.0-8.3) X10*3/uL PT 18.4 H (10.8-13.0) SEC INR 1.5 H (0.9-1.1) VBG pH (7.32-7.43) Chloride 111 H (96-108) mmol/L BUN 93 H* (9-16) mg/dL Calcium 7.2 L D (8.4-10.2) mg/dL Short CBC 07/01/20 07/02/20 Range/Units 23:38 04:33 WBC 39.2 H* 26.6 H (4.8-10.8) X10*3/uL Hgb 10.5 L 9.2 L (12.0-16.0) g/dl Hct 36.0 L 30.6 L (37-47) % Plt Count 481 H 359 D (160-400) X10*3/uL BMP 07/02/20 04:33 Sodium 145 Potassium 3.8 Chloride 111 H Carbon Dioxide 22 BUN 93 H* Creatinine 1.37 Calcium 7.2 L D All other labs normal. Assessment and Plan (1) Hydropneumothorax: Status: Acute Patient is a 59-year-old polysubstance abuser was intubated for acute hypercarbic respiratory failure secondary to cavitary pneumonia and COPD exacerbation subsequently developing a left-sided hydro pneumothorax with mediastinal shift to the right S/P 2 left-sided chest tubes with initial insertion yielding 2500 cc of moca colored pleural fluid. Pleural fluid cultures pending. Pleural fluid studies pending Pleural fluid WBC [id number]. At this time would recommend maintaining both chest tubes on -20 low wall suction. Daily chest x-rays. Would recommend a repeat a chest CT to gain better view of cavitary lesions.
[2020-07-03] VITALS (29 sets, daily range): BP systolic 99–140; BP diastolic 37–63; PULSE 62–109; RESP 18–23; TEMP 36.2–36.9; O2SAT 91–100
[2020-07-03] MEDS: propofoL 1,000 MG/100 ML VIAL 15.31 MG IVCONT ×3 (02:25→21:37)
[2020-07-03] MEDS: Piperacillin Sodium/Tazobactam 3.375 GM in 0.9 % Sodium Chloride 50 ML IV ×4 (03:15→21:40)
[2020-07-03] MEDS: metroNIDAZOLE/NS 500 MG/100 ML PIGGYBACK 100 MG IV ×3 (03:15→20:07)
[2020-07-03] MEDS: vancomycin HCL Oral Solution 125 MG/5 ML SOLN.RECON PO ×4 (03:16→20:09)
[2020-07-03 05:14] LABS: Hematocrit 25.7 % (37-47); Hemoglobin 7.9 g/dl (12.0-16.0); Imm Gran Abs Auto 0.17 X10*3/uL (0.00-0.03); Imm Gran Pct Auto 0.8 % (0.0-0.4); Lymphocytes Absolute Auto 0.8 X10*3/uL (1.2-4.9); Mean Corpuscular HGB Conc 30.7 g/dl (31.0-35.0); Mean Corpuscular Hemoglobin 27.5 pg (27.0-33.0); Mean Corpuscular Volume 89.5 fL (80-98); Mean Platelet Volume 10.7 fL (9.4-12.3); Monocytes Absolute Auto 1.1 X10*3/uL (0.1-1.2); Monocytes Percent Auto 5.4 % (2-11); Neutrophils Percent Auto 89.8 % (45-73); Platelet Count 326 X10*3/uL (160-400); Red Blood Count 2.87 X10*6/uL (4.20-5.50); Red Cell Distribution Width 14.1 % (11.0-16.0); White Blood Count 20.1 X10*3/uL (4.8-10.8)
[2020-07-03 05:15] LABS: MANUAL DIFF FLAG NO
[2020-07-03 05:22] LABS: INTERNATIONAL NORM RATIO 1.1 (0.9-1.1); Prothrombin Time 13.6 SEC (10.8-13.0)
[2020-07-03 05:24] LABS: Partial Thromboplastin Time 34.3 SEC (24.1-38.0)
[2020-07-03] MEDS: 0.9 % Sodium Chloride 1,000 ML 100 ML IVCONT (05:41)
[2020-07-03 05:43] LABS: Base Excess VBG -5.2 mmol/L; HCO3 VBG 21 mmol/L; Oxygen Saturation VBG 89.7 %; PCO2 VBG 41 mmhg; PO2 VBG 59 mmhg; pH VBG 7.32 (7.32-7.43)
[2020-07-03 05:46] LABS: Anion Gap 15 (12-20); Blood Urea Nitrogen 79 mg/dL (9-16); Carbon Dioxide 21 mmol/L (22-29); Chloride 116 mmol/L (96-108); Creatinine Clr Calc Pharmacy 46.8; Estimated Glomerular Filt Rate 54; Glucose Random 89 mg/dL (60-115); Magnesium 2.4 mg/dL (1.6-2.6); Phosphorus 2.2 mg/dL (2.7-4.5); Potassium 3.5 mmol/l (3.3-5.1); Sodium 148 mmol/L (135-145)
[2020-07-03] MEDS: Pantoprazole Sodium 40 MG/10 ML VIAL IVPUSH (06:01)
--- NOTE | 2020-07-03 07:38 | XR_ITS ---
EXAMINATION: XR CHEST CLINICAL INFORMATION: Follow-up chest tube. COMPARISON: 07/02/2020 TECHNIQUE: Frontal view of the chest was obtained. FINDINGS: The endotracheal tube is approximately 5.5 cm above the yaw. The enteric tube courses along the esophagus, into the stomach and beyond the [id number]. The tip of the left IJ catheter is located in the mid superior vena cava. Two left-sided pleural drainage catheters remain in stable position compared to 07/02/2020, one projecting towards the base and the other towards the medial apex. Trace residual left pleural fluid. There is residual fluid and/or pleural thickening in the inferolateral left hemithorax. Also, trace amount of gas is present in the pleural space. The aeration of the left lung has improved, although there are residual patchy opacities in the left mid to lower lung. Cardiac silhouette is normal in size and hilar contours are normal. No pulmonary edema. The visualized bones are intact. XR/XR chest 1V IMPRESSION: * Endotracheal tube is approximately 5.5 cm above the yaw. * The aeration of the left lung has improved compared to 07/02/2020. * Trace residual left pleural fluid and/or pleural thickening, status post catheter drainage of the previously observed large effusion.
[2020-07-03] MEDS: KCl 20 mEq in 0.45% Sod 20 MEQ/1,000 ML IV.SOLN 80 MEQ IVCONT ×2 (07:54→20:08)
[2020-07-03] MEDS: Chlorhexidine Gluc Oral Rinse 15 ML MOUTHWASH BUCCAL ×3 (08:09→20:09)
[2020-07-03] MEDS: 0.9 % Sodium Chloride Flush 3 ML SYRINGE IVFLUSH ×2 (08:09→17:24)
[2020-07-03] MEDS: Sertraline HCL 100 MG TABLET PO (08:10)
[2020-07-03] MEDS: Nystatin Powder 15 GM BOTTLE 1 APPL TOPICAL (08:10)
[2020-07-03] MEDS: Enoxaparin Sodium 40 MG/0.4 ML SYRINGE SUBCUT (10:50)
--- NOTE | 2020-07-03 11:44 | PM.PNTS ---
Subjective Subjective Date of Service: 07/03/20 Physical Exam Vital Signs: Vital Signs: Last Vital Signs Temp 97.7 F 07/03/20 11:00 Pulse 74 07/03/20 11:00 Resp 18 07/03/20 11:00 BP 127/53 L 07/03/20 11:00 Pulse Ox 91 L 07/03/20 11:00 Body Mass Index 22.8 Const: Other: Intubated and sedated General: ill appearing HENMT: Other: has endotracheal tube in. Eyes: General: appearance normal, both eyes and all related structures Neck: Neck: Yes normal visual inspection, Yes trachea midline and No no JVD Chest: Other: dull over the left chest. Chest palpation & inspection: normal inspection of the chest and other (Two left-sided chest tubes remain in place) Resp: Auscultation: clear to auscultation bilaterally Cardio: Rate: regular rate Rhythm: regular rhythm Heart sounds: no gallops, no murmurs and no rubs GI: Inspection: Yes normal to inspection Palpation (GI): Soft to palpation Auscultation: normal bowel sounds Extrem: General: Yes no clubbing, cyanosis or edema and Yes no pedal edema Progress Note: A&P Assessment and plan (1) Hydropneumothorax: Status: Acute Assessment and Plan: Patient is a 59-year-old polysubstance abuser was intubated for acute hypercarbic respiratory failure secondary to cavitary pneumonia and COPD exacerbation subsequently developing a left-sided hydro pneumothorax with mediastinal shift to the right S/P 2 left-sided chest tubes with initial insertion yielding 2500 cc of moca colored pleural fluid. Inferior left-sided chest tube put out approximately 100 cc of serosanguineous fluid output overnight with no detectable air leak and remains on water seal. Superior left-sided chest tube also remains on water seal approximately 80 cc of serosanguineous fluid output overnight with no detectable air leak. CXR performed this morning shows the aeration of the left lung has improved compared to 07/02/2020. Trace residual left pleural fluid and/or pleural thickening, status post catheter drainage of the previously observed large effusion. Pleural fluid cultures pending. Pleural fluid studies sent to [facility] [place] where they are no longer viable Pleural fluid WBC [id number]. At this time would recommend maintaining both chest tubes waterseal and agree with Dr. Feinbergs plan of remving inferior chest tube in near future now that there is no longer any pleural fluid remaining in pleural space. The superior chest tube will remain in 2 more days while pneumothorax continues to heal and then will be taken out after a chest tube clamping trial is performed followed by a cxr to confirm lung epansion. Daily chest x-rays. Would recommend a repeat a chest CT to gain better view of cavitary lesions. Fall Risk Details Current Medications: Current Medications Generic Name Dose Route Start Last Admin Trade Name Freq PRN Reason Stop Dose Admin Acetaminophen 650 mg 06/19/20 11:55 06/30/20 19:59 Acetaminophen 325 Mg Tablet PO 650 mg Q6H PRN Administration Pain, Mild (Pain Scale 1-3) Albuterol/Ipratropium 3 ml 07/01/20 19:57 07/01/20 20:19 Albuterol/Iprat 2.5/0.5mg 3 Ml Ampul.Neb INHALE 3 ml RQ4H PRN Administration wheezing Chlorhexidine Gluconate 15 ml 07/01/20 21:45 07/03/20 08:09 Chlorhexidine Gluc Oral Rinse 15 Ml Mouthwash BUCCAL 15 ml TID GURWINDER Administration Docusate Sodium 100 mg 06/19/20 11:55 Docusate Sodium 100 Mg Capsule PO DAILY PRN Constipation Enoxaparin Sodium 40 mg 06/19/20 11:55 07/03/20 10:50 Enoxaparin Sodium 40 Mg/0.4 Ml Syringe SUBCUT 40 mg Q24H GURWINDER Administration Piperacillin Sod/Tazobactam 50 mls @ 100 mls/hr 06/24/20 16:00 07/03/20 10:50 Sod 3.375 gm/ Sodium Chloride IV 100 mls/hr Q6H GURWINDER Administration Metronidazole 500 mg in 100 mls @ 100 mls/hr 06/24/20 20:00 07/03/20 10:55 Flagyl IV 100 mls/hr Q8H GURWINDER Administration Propofol 1,000 mg in 100 mls @ 0 mls/hr 07/01/20 20:15 07/03/20 09:30 Diprivan IVCONT 45 mcg/kg/min .Q0M GURWINDER 15.31 mls/hr Administration Protocol Per Protocol Norepinephrine Bitartrate 8 mg in 250 mls @ 0 mls/hr 07/02/20 00:15 Levophed IVCONT .Q0M GURWINDER Protocol Per Protocol Potassium Chloride/Sodium Chloride 20 meq in 1,000 mls @ 80 mls/hr 07/03/20 07:15 07/03/20 07:54 IVCONT 80 mls/hr .[id number] GURWINDER Administration Naloxone HCl 0.2 mg 07/01/20 13:55 07/01/20 12:52 Naloxone Hcl 0.4 Mg/Ml Vial IV 0.2 mg Q5M PRN Administration Sedation Nystatin 1 appl 07/01/20 23:45 07/03/20 08:10 Nystatin Powder 15 Gm Bottle TOPICAL 1 appl BID GURWINDER Administration Protocol Ondansetron HCl 4 mg 06/19/20 11:55 Ondansetron Hcl 4 Mg/2 Ml Vial IVPUSH Q8H PRN Nausea and Vomiting Ondansetron HCl 4 mg 06/24/20 14:30 06/24/20 14:57 Ondansetron Hcl 4 Mg/2 Ml Vial IVPUSH 4 mg Q6H PRN Administration Nausea Pantoprazole Sodium 40 mg 07/02/20 06:30 07/03/20 06:01 Pantoprazole Sodium 40 Mg/10 Ml Vial IVPUSH 40 mg DAILY@0630 GURWINDER Administration Sertraline HCl 100 mg 06/19/20 11:55 07/03/20 08:10 Sertraline Hcl 100 Mg Tablet PO 100 mg DAILY GURWINDER Administration Sodium Chloride 3 ml 06/19/20 11:55 07/03/20 08:09 0.9 % Sodium Chloride Flush 3 Ml Syringe IVFLUSH 3 ml QSHIFT GURWINDER Administration Vancomycin HCl 125 mg 07/02/20 07:00 07/03/20 10:53 Vancomycin Hcl Oral Solution 125 Mg/5 Ml Soln.Recon PO 125 mg Q6H GURWINDER Administration Time Spent With Patient Time: Total time spent is greater than 50% in coordination of care (as documented) at patient's floor/unit and/or counseling patient: Time with patient: 15 - 24 minutes
--- NOTE | 2020-07-03 12:30 | PM.CCPN ---
Subjective Subjective Date of Service: 07/03/20 Interval History: 59-year-old female with probable recurrent aspiration presented with complete left lung atelectasis but also very large volume pleural effusion and the actually hydropneumothorax 2 chest tubes placed on 2 separate days 1 emergently at night evacuating nearly 3 L of eliseo pus therefore making this an empyema probably growing anaerobic strep and she remains on antibiotics and she looks completely drained and for the residual high volume pneumothorax and continued atelectasis 2nd chest tube placed towards the apex of the lung completely VAC waited the pneumothorax and the lung completely re-expanded and she is doing very well with significant weaning of the FiO2 on the ventilator Known polysubstance abuser who actually a obtain her own heroin in the hospital creating a little and loss of consciousness eventually and after bagging her a on a rapid response did respond to Narcan and she presented to me with diminished mental status but acute on chronic hypercarbic respiratory failure as well as the opiate induced coma which did respond to Narcan again but progressive respiratory failure lead to urgent intubation and difficulty to oxygenate on the ventilator led to the urgent need for chest tube Physical Exam Vital Signs: Vital Signs: Last Vital Signs Temp 97.9 F 07/03/20 12:00 Pulse 85 07/03/20 12:00 Resp 21 H 07/03/20 12:00 BP 128/55 L 07/03/20 12:00 Pulse Ox 99 07/03/20 12:00 Body Mass Index 22.8 Const: Other: Sedated and intubated Neurologic nonfocal Cardiac exam with normal S1 and normal S2 with no gallops or murmurs and stable CVP running 3-4 Abdomen benign and tolerating feedings with no organomegaly no tenderness Chest without adventitious sounds Skin intact Objective Data Labs CBC & Chem 7: 07/03/20 04:44 07/03/20 04:44 Labs: Laboratory Results - last 24 hr 07/03/20 07/03/20 07/03/20 04:44 04:44 04:44 WBC 20.1 H RBC 2.87 L Hgb 7.9 L Hct 25.7 L MCV 89.5 MCH 27.5 MCHC 30.7 L RDW 14.1 Plt Count 326 MPV 10.7 Immature Gran % (Auto) 0.8 H Neut % (Auto) 89.8 H Lymph % (Auto) 4.0 L [place] % (Auto) 5.4 Eos % (Auto) 0.0 Baso % (Auto) 0.0 Lymph # (Auto) 0.8 L [place] # (Auto) 1.1 Eos # (Auto) 0.0 Baso # (Auto) 0.0 Abs Immat Gran (auto) 0.17 H Absolute Neuts (auto) 18.0 H Absolute Nucleated RBC 0.000 Nucleated RBC % (auto) 0.0 PT 13.6 H D INR 1.1 APTT 34.3 VBG pH 7.32 VBG pCO2 41 VBG pO2 59 VBG HCO3 21 VBG O2 Saturation 89.7 VBG Base Excess -5.2 Sodium Potassium Chloride Carbon Dioxide Anion Gap BUN Creatinine Estim Creat Clear Calc Estimated GFR Random Glucose Calcium Phosphorus Magnesium 07/03/20 04:44 WBC RBC Hgb Hct MCV MCH MCHC RDW Plt Count MPV Immature Gran % (Auto) Neut % (Auto) Lymph % (Auto) [place] % (Auto) Eos % (Auto) Baso % (Auto) Lymph # (Auto) [place] # (Auto) Eos # (Auto) Baso # (Auto) Abs Immat Gran (auto) Absolute Neuts (auto) Absolute Nucleated RBC Nucleated RBC % (auto) PT INR APTT VBG pH VBG pCO2 VBG pO2 VBG HCO3 VBG O2 Saturation VBG Base Excess Sodium 148 H Potassium 3.5 Chloride 116 H Carbon Dioxide 21 L Anion Gap 15 BUN 79 H Creatinine 1.05 Estim Creat Clear Calc 46.8 Estimated GFR 54 Random Glucose 89 Calcium 7.0 L Phosphorus 2.2 L Magnesium 2.4 Microbiology Microbiology Results: Microbiology 07/02/20 01:38 Pleural Fluid Gram Stain - Final 07/02/20 01:38 Pleural Fluid Routine Culture - Preliminary Culture in progress. 07/01/20 20:30 Sputum - Suctioned Gram Stain - Final 07/01/20 20:30 Sputum - Suctioned Sputum Culture - Final 06/26/20 13:55 Lung Left Lower Lobe Direct Acid Fast Bacilli Smear - Final 06/26/20 13:55 Lung Left Lower Lobe Direct Acid Fast Bacilli Smear - Final 06/26/20 13:55 Lung Left Lower Lobe Fungal Identification - Preliminary No growth to date. 06/26/20 13:55 Lung Left Lower Lobe Fungal Identification - Preliminary No growth to date. 06/24/20 20:36 Blood - Venous Blood Culture - Final No growth after 5 days. 06/24/20 20:36 Blood - Venous Blood Culture - Final No growth after 5 days. 06/24/20 15:11 Stool Stool Culture - Final Aga albicans 06/26/20 13:55 Lung Left Lower Lobe Gram Stain - Final 06/26/20 13:55 Lung Left Lower Lobe Routine Culture - Final No growth after 2 days 06/26/20 13:55 Lung Left Lower Lobe Gram Stain - Final 06/26/20 13:55 Lung Left Lower Lobe Routine Culture - Final No growth after 2 days 06/19/20 04:07 Blood - Venous Blood Culture - Final Coag negative Staphylococcus 06/19/20 04:07 Blood - Venous Blood Culture - Final No growth after 5 days. Progress Note: A&P Assessment and plan (1) Hydropneumothorax: Status: Acute (2) Pneumothorax on left: Problem details: Has developed massive Pneumothorax of the Lt chest ,sec to failure of the lung to expand , Discussed with Dr. Cano, , I think next step should be placement of a large bore chest tube , and leave it to continuous suctioning . Discussed with Dr. Lenz , and a repeat Bronchoscopy to do another bronchial lavage . Status: Acute (3) JOSIAH (acute kidney injury): Problem details: Minimal uptick in BUN/Cr Avoid nephrotoxins and hypotension Keep I > O Status: Acute (4) Atelectasis of left lung: Problem details: S/P intubation , with partial expansion of lt lung . Status: Acute (5) Clostridioides difficile infection: Status: Acute (6) Leukocytosis: Status: Acute (7) Cavitary pneumonia: Problem details: CONTINUE THE CURRENT ANTIBIOTICS . Status: Acute (8) Hyponatremia: Problem details: REsolved Status: Acute (9) Leukocytosis: Status: Acute (10) Pneumonia: Status: Acute (11) Anxiety: Status: Acute (12) COPD exacerbation: Status: Acute (13) Sepsis: Status: Acute (14) Asthma with COPD (chronic obstructive pulmonary disease): Status: Acute Time Spent With Patient Time: Total time spent is greater than 50% in coordination of care (as documented) at patient's floor/unit and/or counseling patient: Total time spent with greater than 50% in coordination of care (as documented) at patient's floor/unit and/or counseling patient:: 40
--- NOTE | 2020-07-03 13:59 | PC.NURSE ---
Patient remains sedated on Propofol and restraints in place for safety. Patient nodding head to yes/no questions. Synchronous with vent. Continues on AC settings. Suctioning moderate amount of inline secretions. Bedside bronchoscopy performed by cro, specimen obtained and cultures ordered, patient tolerated well. Per MD left anterior chest tube taken off suction, minimal, serosang output noted. Dressing change to hao chest tube insertion sites, small amount of sersang drainage to hao sites. Patient remains sedated on Propofol and restraints in place for safety. Patient nodding head to yes/no questions. Synchronous with vent. Continues on AC settings. Suctioning moderate amount of inline secretions. Bedside bronchoscopy performed by cro, specimen obtained and cultures ordered, patient tolerated well. Per MD left anterior chest tube taken off suction, minimal, serosang output noted. Dressing change to hao chest tube insertion sites, small amount of sersang drainage to hao sites.
--- NOTE | 2020-07-03 14:06 | OP_ITS ---
SURGEON: Jonn Lenz MD PREOPERATIVE DIAGNOSIS: Cavitary pneumonia. POSTOPERATIVE DIAGNOSIS: Cavitary pneumonia. PROCEDURE PERFORMED: ESTIMATED BLOOD LOSS: COMPLICATIONS: ANESTHESIA: The patient was already intubated and having sedation through the ICU protocol. ASSISTANTS: SPECIMENS: INDICATION: Pneumonia. CONSENT: Consent was obtained from patient's next of kin, her daughter. All of the questions were answered. The risks and benefits were discussed and the patient's daughter gave informed consent to undergo the procedure. DESCRIPTION OF PROCEDURE: After the patient was adequately sedated, the flexible digital bronchoscope disposable was introduced via the ET tube to the level of the main yaw. Main yaw appeared to be normal. Purulent secretions were noted from the left mainstem bronchus from the get go. The airways were examined up to the subsegmental level. The left lower lobe airways that was obstructed, appeared to be more patent, although still swollen. Bronchial washings were done and the airways were cleaned out. All the purulent secretions were removed and sputum sample was sent for culture. No evidence of any foreign bodies in either of the left lung. The patient tolerated the procedure well. Vital signs were stable throughout the procedure. The bronchoscope was terminated after 5 minutes. No evidence of any complications of issues. INTERPRETATION: Persistent pus from the left lower lobe due to her significant left lower lobe pneumonia, status post bronchial washings from the left lower lobe. The left lower lobe airway appears to be a little bit more patent, but is still swollen and partially obstructed. Again, no foreign bodies noted. MD CHRIS Rehman/CHARLIE / [phone]
--- NOTE | 2020-07-03 16:33 | MHC.CM.PN ---
Patient remains intubated/vented in ICU. Continue to monitor for d/c needs.
--- NOTE | 2020-07-03 20:36 | PC.NURSE ---
Pt remains stable and sedate on vent. Chest tubes remain in place. Anterior chest tube is to water seal and lateral chest tube to -10 suction. Minimal serosanguous noted from both. Chest tube insertions site oozing blood. Dressing from 3pm with staining which was marked at 4pm but at 2000 was larger than marking. Anh PA aware and at bedside during dressing change. Site dressing changed with surgicil, occlusive dressing, gauze, and ABD pad. H/H trending down today and repeat obtained at this time.
[2020-07-03 20:41] LABS: Basophils Percent Auto 0.1 % (0-2); Eosinophils Percent Auto 0.2 % (0-4); Hematocrit 24.6 % (37-47); Hemoglobin 7.6 g/dl (12.0-16.0); Imm Gran Abs Auto 0.13 X10*3/uL (0.00-0.03); Imm Gran Pct Auto 0.7 % (0.0-0.4); Lymphocytes Absolute Auto 1.1 X10*3/uL (1.2-4.9); Lymphocytes Percent Auto 6.1 % (20-40); Mean Corpuscular HGB Conc 30.9 g/dl (31.0-35.0); Mean Corpuscular Hemoglobin 27.3 pg (27.0-33.0); Mean Corpuscular Volume 88.5 fL (80-98); Mean Platelet Volume 9.9 fL (9.4-12.3); Monocytes Absolute Auto 1.1 X10*3/uL (0.1-1.2); Neutrophils Absolute Auto 15.1 X10*3/uL (2.0-8.3); Neutrophils Percent Auto 86.9 % (45-73); Platelet Count 302 X10*3/uL (160-400); Red Blood Count 2.78 X10*6/uL (4.20-5.50); Red Cell Distribution Width 14.1 % (11.0-16.0); White Blood Count 17.4 X10*3/uL (4.8-10.8)
[2020-07-03 20:42] LABS: MANUAL DIFF FLAG NO
[2020-07-04] VITALS (29 sets, daily range): BP systolic 109–157; BP diastolic 47–80; PULSE 64–92; RESP 21–28; TEMP 36–36.4; O2SAT 96–100
--- NOTE | 2020-07-04 | XR_ITS ---
EXAMINATION: XR CHEST CLINICAL INFORMATION: Chest tube insertion. COMPARISON: Chest x-ray 07/03/2020 and 07/04/2020. TECHNIQUE: Frontal view of the chest was obtained. FINDINGS: Again visualized are 2 left-sided chest tubes, stable. Previously seen loculated left pleural air collection has resolved. Position of left central venous catheter,, enteric tube and endotracheal tube are in satisfactory position. Mild haziness in the left lower lobe is again visualized. There are increased interstitial markings in both lungs. Heart size and pulmonary vascularity is normal. No gross bony abnormality. XR/XR chest 1V IMPRESSION: Resolved left lateral pleural collection. There is a loculated pleural effusion seen however. There is mild haziness in left lower lobe, stable. 2 left-sided chest tubes, support lines and catheters are stable.
[2020-07-04] MEDS: 0.9 % Sodium Chloride Flush 3 ML SYRINGE IVFLUSH ×3 (00:12→16:13)
[2020-07-04] MEDS: vancomycin HCL Oral Solution 125 MG/5 ML SOLN.RECON PO ×4 (00:14→20:40)
[2020-07-04] MEDS: propofoL 1,000 MG/100 ML VIAL 15.31 MG IVCONT ×4 (02:24→20:40)
[2020-07-04] MEDS: Piperacillin Sodium/Tazobactam 3.375 GM in 0.9 % Sodium Chloride 50 ML IV ×3 (04:17→15:59)
[2020-07-04] MEDS: metroNIDAZOLE/NS 500 MG/100 ML PIGGYBACK 100 MG IV (04:18)
[2020-07-04] MEDS: Pantoprazole Sodium 40 MG/10 ML VIAL IVPUSH (05:53)
[2020-07-04 05:56] LABS: MANUAL DIFF FLAG NO
--- NOTE | 2020-07-04 05:56 | PC.NURSE ---
CARE ASSUMED 23;15...REMAINS TUBED/VENTED...VENT SYNCHRONOUS WITH PROPOFOL 45 MCG/KG/MIN...SAO2 99-100%..LEFT ANTERIOR CHEST TUBE TO WATER SEAL--LEFT LATERAL CHEST TUBE TO -10cm SUCTION...BOTH CHEST TUBES W/O MEASURABLE DRAIANGE AND (-) AIR-LEAKS...DRESSING TO LEFT CHEST DRY/INTACT...NSR..NO ECTOPY
[2020-07-04 06:14] LABS: Base Excess VBG -4.8 mmol/L; HCO3 VBG 21 mmol/L; Oxygen Saturation VBG 88.2 %; PCO2 VBG 42 mmhg; PO2 VBG 57 mmhg; pH VBG 7.32 (7.32-7.43)
[2020-07-04 06:21] LABS: Basophils Percent Auto 0.1 % (0-2); Eosinophils Absolute Auto 0.1 X10*3/uL (0.0-0.4); Eosinophils Percent Auto 0.5 % (0-4); Hematocrit 24.2 % (37-47); Hemoglobin 7.4 g/dl (12.0-16.0); Imm Gran Abs Auto 0.12 X10*3/uL (0.00-0.03); Imm Gran Pct Auto 0.8 % (0.0-0.4); Lymphocytes Absolute Auto 0.9 X10*3/uL (1.2-4.9); Lymphocytes Percent Auto 5.5 % (20-40); Mean Corpuscular HGB Conc 30.6 g/dl (31.0-35.0); Mean Corpuscular Hemoglobin 26.8 pg (27.0-33.0); Mean Corpuscular Volume 87.7 fL (80-98); Mean Platelet Volume 10.9 fL (9.4-12.3); Monocytes Absolute Auto 0.8 X10*3/uL (0.1-1.2); Monocytes Percent Auto 5.3 % (2-11); Neutrophils Absolute Auto 13.8 X10*3/uL (2.0-8.3); Neutrophils Percent Auto 87.8 % (45-73); Platelet Count 303 X10*3/uL (160-400); Red Blood Count 2.76 X10*6/uL (4.20-5.50); Red Cell Distribution Width 14.1 % (11.0-16.0); White Blood Count 15.7 X10*3/uL (4.8-10.8)
[2020-07-04 06:28] LABS: Anion Gap 15 (12-20); Blood Urea Nitrogen 51 mg/dL (9-16); Calcium 7.2 mg/dL (8.4-10.2); Carbon Dioxide 21 mmol/L (22-29); Chloride 118 mmol/L (96-108); Creatinine Clr Calc Pharmacy 65.5; Estimated Glomerular Filt Rate > 60; Glucose Random 87 mg/dL (60-115); Magnesium 2.2 mg/dL (1.6-2.6); Potassium 3.9 mmol/l (3.3-5.1); Sodium 150 mmol/L (135-145)
--- NOTE | 2020-07-04 06:33 | PC.NURSE ---
DR ARAUJO PRESENT ON UNIT--LEFT LATERAL CHEST TUBE CLAMPED PER
[2020-07-04 06:34] LABS: Prothrombin Time 12.4 SEC (10.8-13.0)
[2020-07-04 06:36] LABS: Partial Thromboplastin Time 30.4 SEC (24.1-38.0)
--- NOTE | 2020-07-04 06:36 | PC.NURSE ---
CVP=6
[2020-07-04] MEDS: Chlorhexidine Gluc Oral Rinse 15 ML MOUTHWASH BUCCAL ×3 (07:24→20:40)
[2020-07-04] MEDS: Nystatin Powder 15 GM BOTTLE 1 APPL TOPICAL (07:25)
--- NOTE | 2020-07-04 09:00 | XR_ITS ---
EXAMINATION: XR CHEST CLINICAL INFORMATION: Chest tube placement COMPARISON: 07/03/2020 TECHNIQUE: Portable 7:28 AM view of the chest was obtained. FINDINGS: Support tubes and lines remain stable and satisfactory. 2 left-sided pigtail drainage catheters are in place. There is likely a small pneumothorax loculated at the left base laterally. No air-fluid level. Minor left sided proximal haziness suggesting nonspecific airspace disease similar. No shift. Right lung clear. No overt pulmonary edema. Heart size normal. XR/XR chest 1V IMPRESSION: Small loculated left basilar pneumothorax. Left-sided chest catheters x2 remains in good position.
--- NOTE | 2020-07-04 09:28 | PM.PNNEP ---
Subjective Subjective Date of Service: 07/04/20 Principal diagnosis: Cavitary Pneumonia Lt lower lobe . Interval history: Events noted Still on vent Na up to 150 Started free water Physical Exam Vital Signs: Vital Signs: Last Vital Signs Temp 96.8 F 07/04/20 08:00 Pulse 69 07/04/20 08:00 Resp 22 H 07/04/20 08:00 BP 140/62 H 07/04/20 08:00 Pulse Ox 100 07/04/20 07:00 Body Mass Index 22.8 Const: General: ill appearing Neck: Neck: Yes supple Resp: Auscultation: diminished lung sounds Cardio: Heart sounds: no gallops and no rubs Neuro: Motor exam (neuro): No Asterixis during motor activity present Objective Data Labs CBC & Chem 7: 07/04/20 05:20 07/04/20 05:20 Labs: Laboratory Results - last 24 hr 07/02/20 07/02/20 07/03/20 01:38 01:38 20:30 WBC 17.4 H RBC 2.78 L Hgb 7.6 L Hct 24.6 L MCV 88.5 MCH 27.3 MCHC 30.9 L RDW 14.1 Plt Count 302 MPV 9.9 Immature Gran % (Auto) 0.7 H Neut % (Auto) 86.9 H Lymph % (Auto) 6.1 L [place] % (Auto) 6.0 Eos % (Auto) 0.2 Baso % (Auto) 0.1 Lymph # (Auto) 1.1 L [place] # (Auto) 1.1 Eos # (Auto) 0.0 Baso # (Auto) 0.0 Abs Immat Gran (auto) 0.13 H Absolute Neuts (auto) 15.1 H Absolute Nucleated RBC 0.000 Nucleated RBC % (auto) 0.0 PT INR APTT VBG pH VBG pCO2 VBG pO2 VBG HCO3 VBG O2 Saturation VBG Base Excess Sodium Potassium Chloride Carbon Dioxide Anion Gap BUN Creatinine Estim Creat Clear Calc Estimated GFR Random Glucose Calcium Phosphorus Magnesium Pleural pH TNP Pleural Total Protein TNP Pleural Albumin TNP Pleural LDH TNP Pleural Glucose TNP Pleural Amylase TNP Blood Type Antibody Screen Crossmatch 07/04/20 07/04/20 07/04/20 05:20 05:20 05:20 WBC 15.7 H RBC 2.76 L Hgb 7.4 L Hct 24.2 L MCV 87.7 MCH 26.8 L MCHC 30.6 L RDW 14.1 Plt Count 303 MPV 10.9 Immature Gran % (Auto) 0.8 H Neut % (Auto) 87.8 H Lymph % (Auto) 5.5 L [place] % (Auto) 5.3 Eos % (Auto) 0.5 Baso % (Auto) 0.1 Lymph # (Auto) 0.9 L [place] # (Auto) 0.8 Eos # (Auto) 0.1 Baso # (Auto) 0.0 Abs Immat Gran (auto) 0.12 H Absolute Neuts (auto) 13.8 H Absolute Nucleated RBC 0.000 Nucleated RBC % (auto) 0.0 PT 12.4 INR 1.0 APTT 30.4 VBG pH VBG pCO2 VBG pO2 VBG HCO3 VBG O2 Saturation VBG Base Excess Sodium 150 H Potassium 3.9 Chloride 118 H Carbon Dioxide 21 L Anion Gap 15 BUN 51 H Creatinine 0.75 Estim Creat Clear Calc 65.5 Estimated GFR > 60 Random Glucose 87 Calcium 7.2 L Phosphorus 2.0 L Magnesium 2.2 Pleural pH Pleural Total Protein Pleural Albumin Pleural LDH Pleural Glucose Pleural Amylase Blood Type Antibody Screen Crossmatch 07/04/20 07/04/20 05:20 07:42 WBC RBC Hgb Hct MCV MCH MCHC RDW Plt Count MPV Immature Gran % (Auto) Neut % (Auto) Lymph % (Auto) [place] % (Auto) Eos % (Auto) Baso % (Auto) Lymph # (Auto) [place] # (Auto) Eos # (Auto) Baso # (Auto) Abs Immat Gran (auto) Absolute Neuts (auto) Absolute Nucleated RBC Nucleated RBC % (auto) PT INR APTT VBG pH 7.32 VBG pCO2 42 VBG pO2 57 VBG HCO3 21 VBG O2 Saturation 88.2 VBG Base Excess -4.8 Sodium Potassium Chloride Carbon Dioxide Anion Gap BUN Creatinine Estim Creat Clear Calc Estimated GFR Random Glucose Calcium Phosphorus Magnesium Pleural pH Pleural Total Protein Pleural Albumin Pleural LDH Pleural Glucose Pleural Amylase Blood Type A Positive Antibody Screen NEGATIVE Crossmatch See Detail Microbiology Microbiology Results: Microbiology 07/03/20 14:17 Sputum - Suctioned Gram Stain - Final 07/03/20 14:17 Sputum - Suctioned Sputum Culture - Preliminary No growth to date. 07/02/20 01:38 Pleural Fluid Gram Stain - Final 07/02/20 01:38 Pleural Fluid Routine Culture - Final No growth after 2 days 07/01/20 20:30 Sputum - Suctioned Gram Stain - Final 07/01/20 20:30 Sputum - Suctioned Sputum Culture - Final 06/26/20 13:55 Lung Left Lower Lobe Direct Acid Fast Bacilli Smear - Final 06/26/20 13:55 Lung Left Lower Lobe Direct Acid Fast Bacilli Smear - Final 06/26/20 13:55 Lung Left Lower Lobe Fungal Identification - Preliminary No growth to date. 06/26/20 13:55 Lung Left Lower Lobe Fungal Identification - Preliminary No growth to date. 06/24/20 20:36 Blood - Venous Blood Culture - Final No growth after 5 days. 06/24/20 20:36 Blood - Venous Blood Culture - Final No growth after 5 days. 06/24/20 15:11 Stool Stool Culture - Final Aga albicans 06/26/20 13:55 Lung Left Lower Lobe Gram Stain - Final 06/26/20 13:55 Lung Left Lower Lobe Routine Culture - Final No growth after 2 days 06/26/20 13:55 Lung Left Lower Lobe Gram Stain - Final 06/26/20 13:55 Lung Left Lower Lobe Routine Culture - Final No growth after 2 days 06/19/20 04:07 Blood - Venous Blood Culture - Final Coag negative Staphylococcus 06/19/20 04:07 Blood - Venous Blood Culture - Final No growth after 5 days. Assessment & Plan Assessment and plan (1) JOSIAH (acute kidney injury): Problem details: Minimal uptick in BUN/Cr- beginning to improve Avoid nephrotoxins and hypotension Keep I > O Hypernatremia due to free water deficit Keep I > O With free water Status: Acute Time Spent With Patient Time: Total time spent is greater than 50% in coordination of care (as documented) at patient's floor/unit and/or counseling patient:
--- NOTE | 2020-07-04 11:03 | MHC.CM.PN ---
Patient remains intubated/vented in ICU. Continue to monitor for d/c needs.
--- NOTE | 2020-07-04 11:09 | MHC.CLN ---
F/U PT INTUBATED AND SEDATED PT RECEIVING TF PROMOTE AT MAX GOAL RATE 40CC/HR WITH 240CC FREE WATER Q 6HRS PROVIDES 960KCALS (1364KCALS WITH SEDATION; 24KCALS/KG), 60G PROTEIN (1.0G/KG), 1765CC TOTAL WATER FROM FORMULA AND FLUSHES (31CC/KG) MONITOR TOLERANCE, RESIDUALS AND LYTES
[2020-07-04] MEDS: Enoxaparin Sodium 40 MG/0.4 ML SYRINGE SUBCUT (12:27)
--- NOTE | 2020-07-04 15:13 | PC.NURSE ---
Patient remains sedated on propofol. PERRLA, nodding to yes/no questions. Vent settings adjusted to AC of 18 per MD. 02 sats trending in the mid 90s. Left lateral chest tube previously clamped this morning by night RN per MD. Follow up cxr obtained one hour after. MD at bedside and left lateral chest tube removed by MD, occlusive dressing applied. One unit of RBCs ordered and transfusing. Started on tube feeds with free water flushes, patient tolerating well, residuals 0.
--- NOTE | 2020-07-04 16:30 | XR_ITS ---
EXAMINATION: XR CHEST CLINICAL INFORMATION: Dyspnea COMPARISON: Previous chest x-ray from earlier the same day TECHNIQUE: Frontal view of the chest was obtained. FINDINGS: The cardiac and mediastinal contours are stable. There is an endotracheal tube with tip 3.3 cm above the yaw. There is a nasogastric tube that projects over the stomach. The tip is not seen. There is a left jugular line with tip projecting over the SVC. The right lung is clear. There is airspace disease seen in the left lung in the perihilar region and at the left lung base. There is a left chest tube projecting over the left upper lobe. The second left chest tube at the left lung base is no longer seen and has presumably been removed. There is a small left pleural effusion. There is a small air collection over the left lateral lung/left eighth and ninth ribs questionable for tiny left hydropneumothorax. Bony structures are unremarkable. XR/XR chest 1V IMPRESSION: Satisfactory position of endotracheal tube and left jugular line. Nasogastric tube projects over the stomach, tip not seen. Left upper chest tube unchanged in position. Left chest tube at the lung bases no longer seen and has presumably been removed since exam from earlier today. No change in left-sided airspace disease. Small left pleural effusion and question small left lateral hydropneumothorax.
[2020-07-04 16:45] LABS: PCO2 VBG 49 mmhg; PO2 VBG 68 mmhg; pH VBG 7.28 (7.32-7.43)
[2020-07-04 16:46] LABS: Base Excess VBG -3.9 mmol/L; Blood Gas Serial # 5414; HCO3 VBG 23 mmol/L; Oxygen Saturation VBG 91.5 %
--- NOTE | 2020-07-04 17:12 | P.PNCC_ITS ---
Subjective Subjective Date of Service: 07/04/20 Interval History: 59-year-old female known polysubstance abuser probable recurrent aspiration due to depressed mental status who had 2 chest tubes placed in the left lung 1 draining to 2500 cc of pus from an empyema the upper drained a pneumothorax and then there was complete re-expansion of the left lung and she is on antibiotics and preliminarily growing what appears to be anaerobic strep and she remains on the ventilator with an FiO2 of about 30% and previously on volume control but placed on pressure control and latest pCO2 rising modestly to 49 Physical Exam Vital Signs: Vital Signs: Last Vital Signs Temp 97.3 F 07/04/20 15:14 Pulse 82 07/04/20 16:00 Resp 24 H 07/04/20 16:00 BP 134/65 07/04/20 16:00 Pulse Ox 99 07/04/20 16:00 Body Mass Index 22.8 Const: Other: Sedated and intubated but she did awaken with cognitive function Skin intact with no acrocyanosis Neurologic is nonfocal Chest with bilateral coarse ventilator sounds but no adventitious sounds Cardiac exam with normal S1 and normal S2 with no gallops or murmurs Abdomen benign tolerating feedings with good bowel sounds soft and nontender Objective Data Labs CBC & Chem 7: 07/04/20 05:20 07/04/20 05:20 Labs: Laboratory Results - last 24 hr 07/03/20 07/04/20 07/04/20 20:30 05:20 05:20 WBC 17.4 H 15.7 H RBC 2.78 L 2.76 L Hgb 7.6 L 7.4 L Hct 24.6 L 24.2 L MCV 88.5 87.7 MCH 27.3 26.8 L MCHC 30.9 L 30.6 L RDW 14.1 14.1 Plt Count 302 303 MPV 9.9 10.9 Immature Gran % (Auto) 0.7 H 0.8 H Neut % (Auto) 86.9 H 87.8 H Lymph % (Auto) 6.1 L 5.5 L [place] % (Auto) 6.0 5.3 Eos % (Auto) 0.2 0.5 Baso % (Auto) 0.1 0.1 Lymph # (Auto) 1.1 L 0.9 L [place] # (Auto) 1.1 0.8 Eos # (Auto) 0.0 0.1 Baso # (Auto) 0.0 0.0 Abs Immat Gran (auto) 0.13 H 0.12 H Absolute Neuts (auto) 15.1 H 13.8 H Absolute Nucleated RBC 0.000 0.000 Nucleated RBC % (auto) 0.0 0.0 PT 12.4 INR 1.0 APTT 30.4 VBG pH VBG pCO2 VBG pO2 VBG HCO3 VBG O2 Saturation VBG Base Excess Sodium Potassium Chloride Carbon Dioxide Anion Gap BUN Creatinine Estim Creat Clear Calc Estimated GFR Random Glucose Calcium Phosphorus Magnesium Blood Type Antibody Screen Crossmatch 07/04/20 07/04/20 07/04/20 05:20 05:20 07:42 WBC RBC Hgb Hct MCV MCH MCHC RDW Plt Count MPV Immature Gran % (Auto) Neut % (Auto) Lymph % (Auto) [place] % (Auto) Eos % (Auto) Baso % (Auto) Lymph # (Auto) [place] # (Auto) Eos # (Auto) Baso # (Auto) Abs Immat Gran (auto) Absolute Neuts (auto) Absolute Nucleated RBC Nucleated RBC % (auto) PT INR APTT VBG pH 7.32 VBG pCO2 42 VBG pO2 57 VBG HCO3 21 VBG O2 Saturation 88.2 VBG Base Excess -4.8 Sodium 150 H Potassium 3.9 Chloride 118 H Carbon Dioxide 21 L Anion Gap 15 BUN 51 H Creatinine 0.75 Estim Creat Clear Calc 65.5 Estimated GFR > 60 Random Glucose 87 Calcium 7.2 L Phosphorus 2.0 L Magnesium 2.2 Blood Type A Positive Antibody Screen NEGATIVE Crossmatch See Detail 07/04/20 16:24 WBC RBC Hgb Hct MCV MCH MCHC RDW Plt Count MPV Immature Gran % (Auto) Neut % (Auto) Lymph % (Auto) [place] % (Auto) Eos % (Auto) Baso % (Auto) Lymph # (Auto) [place] # (Auto) Eos # (Auto) Baso # (Auto) Abs Immat Gran (auto) Absolute Neuts (auto) Absolute Nucleated RBC Nucleated RBC % (auto) PT INR APTT VBG pH 7.28 L VBG pCO2 49 VBG pO2 68 VBG HCO3 23 VBG O2 Saturation 91.5 VBG Base Excess -3.9 Sodium Potassium Chloride Carbon Dioxide Anion Gap BUN Creatinine Estim Creat Clear Calc Estimated GFR Random Glucose Calcium Phosphorus Magnesium Blood Type Antibody Screen Crossmatch Microbiology Microbiology Results: Microbiology 07/02/20 01:38 Pleural Fluid Gram Stain - Final 07/02/20 01:38 Pleural Fluid Routine Culture - Final No growth after 2 days 07/02/20 01:38 Pleural Fluid Anaerobic Culture - Final Anaerococcus tetradius 07/03/20 14:17 Sputum - Suctioned Gram Stain - Final 07/03/20 14:17 Sputum - Suctioned Sputum Culture - Preliminary No growth to date. 07/01/20 20:30 Sputum - Suctioned Gram Stain - Final 07/01/20 20:30 Sputum - Suctioned Sputum Culture - Final 06/26/20 13:55 Lung Left Lower Lobe Direct Acid Fast Bacilli Smear - Final 06/26/20 13:55 Lung Left Lower Lobe Direct Acid Fast Bacilli Smear - Final 06/26/20 13:55 Lung Left Lower Lobe Fungal Identification - Preliminary No growth to date. 06/26/20 13:55 Lung Left Lower Lobe Fungal Identification - Preliminary No growth to date. 06/24/20 20:36 Blood - Venous Blood Culture - Final No growth after 5 days. 06/24/20 20:36 Blood - Venous Blood Culture - Final No growth after 5 days. 06/24/20 15:11 Stool Stool Culture - Final Aga albicans 06/26/20 13:55 Lung Left Lower Lobe Gram Stain - Final 06/26/20 13:55 Lung Left Lower Lobe Routine Culture - Final No growth after 2 days 06/26/20 13:55 Lung Left Lower Lobe Gram Stain - Final 06/26/20 13:55 Lung Left Lower Lobe Routine Culture - Final No growth after 2 days 06/19/20 04:07 Blood - Venous Blood Culture - Final Coag negative Staphylococcus 06/19/20 04:07 Blood - Venous Blood Culture - Final No growth after 5 days. Progress Note: A&P Assessment and plan (1) Hydropneumothorax: Status: Acute (2) Pneumothorax on left: Problem details: Has developed massive Pneumothorax of the Lt chest ,sec to failure of the lung to expand , Discussed with Dr. Cano, , I think next step should be placement of a large bore chest tube , and leave it to continuous suctioning . Discussed with Dr. Lenz , and a repeat Bronchoscopy to do another bronchial lavage . Status: Acute (3) JOSIAH (acute kidney injury): Problem details: Minimal uptick in BUN/Cr- beginning to improve Avoid nephrotoxins and hypotension Keep I > O Hypernatremia due to free water deficit Keep I > O With free water Status: Acute (4) Atelectasis of left lung: Problem details: S/P intubation , with partial expansion of lt lung . Status: Acute (5) Clostridioides difficile infection: Status: Acute (6) Leukocytosis: Status: Acute (7) Cavitary pneumonia: Problem details: CONTINUE THE CURRENT ANTIBIOTICS . Status: Acute (8) Hyponatremia: Problem details: REsolved Status: Acute (9) Leukocytosis: Status: Acute (10) Anxiety: Status: Acute (11) Pneumonia: Status: Acute (12) COPD exacerbation: Status: Acute (13) Sepsis: Status: Acute (14) Asthma with COPD (chronic obstructive pulmonary disease): Status: Acute Assessment and Plan: Lower chest tube was pulled and no significant reaccumulation just very modest and certainly no pneumothorax and left lung still has persistent infiltrate and we will continue antibiotics IV fluids stopped because of hypernatremia and we giving her free water through the OG tube along with feedings Time Spent With Patient Time: Total time spent is greater than 50% in coordination of care (as documented) at patient's floor/unit and/or counseling patient: Total time spent with greater than 50% in coordination of care (as documented) at patient's floor/unit and/or counseling patient:: 40
[2020-07-04] MEDS: Albuterol/Iprat 2.5/0.5MG 3 ML AMPUL.NEB INHALE (19:46)
--- NOTE | 2020-07-04 22:09 | PM.IDPN ---
Subjective Subjective Date of Service: 07/04/20 Interval History: she remains with chest tube she has gram positive cocci,no growth sputm she has no diarrhea reported,Cdiff antigen positive Objective Data Labs CBC & Chem 7: 07/04/20 05:20 07/04/20 05:20 Labs: Laboratory Results - last 24 hr 07/04/20 07/04/20 07/04/20 05:20 05:20 05:20 WBC 15.7 H RBC 2.76 L Hgb 7.4 L Hct 24.2 L MCV 87.7 MCH 26.8 L MCHC 30.6 L RDW 14.1 Plt Count 303 MPV 10.9 Immature Gran % (Auto) 0.8 H Neut % (Auto) 87.8 H Lymph % (Auto) 5.5 L [place] % (Auto) 5.3 Eos % (Auto) 0.5 Baso % (Auto) 0.1 Lymph # (Auto) 0.9 L [place] # (Auto) 0.8 Eos # (Auto) 0.1 Baso # (Auto) 0.0 Abs Immat Gran (auto) 0.12 H Absolute Neuts (auto) 13.8 H Absolute Nucleated RBC 0.000 Nucleated RBC % (auto) 0.0 PT 12.4 INR 1.0 APTT 30.4 VBG pH VBG pCO2 VBG pO2 VBG HCO3 VBG O2 Saturation VBG Base Excess Sodium 150 H Potassium 3.9 Chloride 118 H Carbon Dioxide 21 L Anion Gap 15 BUN 51 H Creatinine 0.75 Estim Creat Clear Calc 65.5 Estimated GFR > 60 Random Glucose 87 Calcium 7.2 L Phosphorus 2.0 L Magnesium 2.2 Blood Type Antibody Screen Crossmatch 07/04/20 07/04/20 07/04/20 05:20 07:42 16:24 WBC RBC Hgb Hct MCV MCH MCHC RDW Plt Count MPV Immature Gran % (Auto) Neut % (Auto) Lymph % (Auto) [place] % (Auto) Eos % (Auto) Baso % (Auto) Lymph # (Auto) [place] # (Auto) Eos # (Auto) Baso # (Auto) Abs Immat Gran (auto) Absolute Neuts (auto) Absolute Nucleated RBC Nucleated RBC % (auto) PT INR APTT VBG pH 7.32 7.28 L VBG pCO2 42 49 VBG pO2 57 68 VBG HCO3 21 23 VBG O2 Saturation 88.2 91.5 VBG Base Excess -4.8 -3.9 Sodium Potassium Chloride Carbon Dioxide Anion Gap BUN Creatinine Estim Creat Clear Calc Estimated GFR Random Glucose Calcium Phosphorus Magnesium Blood Type A Positive Antibody Screen NEGATIVE Crossmatch See Detail Microbiology Microbiology Results: Microbiology 07/02/20 01:38 Pleural Fluid Gram Stain - Final 07/02/20 01:38 Pleural Fluid Routine Culture - Final No growth after 2 days 07/02/20 01:38 Pleural Fluid Anaerobic Culture - Final Anaerococcus tetradius 07/03/20 14:17 Sputum - Suctioned Gram Stain - Final 07/03/20 14:17 Sputum - Suctioned Sputum Culture - Preliminary No growth to date. 07/01/20 20:30 Sputum - Suctioned Gram Stain - Final 07/01/20 20:30 Sputum - Suctioned Sputum Culture - Final 06/26/20 13:55 Lung Left Lower Lobe Direct Acid Fast Bacilli Smear - Final 06/26/20 13:55 Lung Left Lower Lobe Direct Acid Fast Bacilli Smear - Final 06/26/20 13:55 Lung Left Lower Lobe Fungal Identification - Preliminary No growth to date. 06/26/20 13:55 Lung Left Lower Lobe Fungal Identification - Preliminary No growth to date. 06/24/20 20:36 Blood - Venous Blood Culture - Final No growth after 5 days. 06/24/20 20:36 Blood - Venous Blood Culture - Final No growth after 5 days. 06/24/20 15:11 Stool Stool Culture - Final Aga albicans 06/26/20 13:55 Lung Left Lower Lobe Gram Stain - Final 06/26/20 13:55 Lung Left Lower Lobe Routine Culture - Final No growth after 2 days 06/26/20 13:55 Lung Left Lower Lobe Gram Stain - Final 06/26/20 13:55 Lung Left Lower Lobe Routine Culture - Final No growth after 2 days 06/19/20 04:07 Blood - Venous Blood Culture - Final Coag negative Staphylococcus 06/19/20 04:07 Blood - Venous Blood Culture - Final No growth after 5 days. Physical Exam Vital Signs: Vital Signs: Last Vital Signs Temp 97 F 07/04/20 20:00 Pulse 83 07/04/20 20:00 Resp 22 H 07/04/20 20:00 BP 135/59 L 07/04/20 20:00 Pulse Ox 97 12/11/20 20:00 Body Mass Index 22.8 Const: General: no acute distress HENMT: Head: Yes normal to inspection Mouth: Normal oral and palatal mucosa present Resp: Effort & Inspection: normal respiratory effort Cardio: Rate: regular rate Rhythm: regular rhythm GI: Palpation (GI): Soft to palpation Skin: General skin exam: no rashes or lesions noted Assessment and Plan Assessment and plan (1) Atelectasis of left lung: Problem details: S/P intubation , with partial expansion of lt lung . She is improving Day 10 Zosyn and Flagyl po Vancomycin day 3 Status: Acute Assessment and Plan: Can stop Flagyl Continue po Vancomycin Stop Zosyn next 2-3 days (2) Clostridioides difficile infection: Problem details: Continue po Vancomycin Status: Acute Time Spent With Patient Time: Total time spent is greater than 50% in coordination of care (as documented) at patient's floor/unit and/or counseling patient: Time with patient: 15 - 24 minutes
[2020-07-05] VITALS (30 sets, daily range): BP systolic 111–141; BP diastolic 46–69; PULSE 78–123; RESP 18–29; TEMP 36.2–37.5; O2SAT 96–100
--- NOTE | 2020-07-05 | XR_ITS ---
EXAMINATION: XR CHEST CLINICAL INFORMATION: Repositioning of chest tube. COMPARISON: Chest 07/05/2020 at 4:53 AM. TECHNIQUE: Frontal view of the chest was obtained. FINDINGS: Left chest tube has been pulled inferiorly and now lies at or below the hilum. Loculated effusion along the left lateral chest wall is unchanged. Position of left central catheter, endotracheal tube and enteric tube is stable. The right lung is clear. Heart size and pulmonary vascularity is normal. No gross bony abnormality seen. XR/XR chest 1V IMPRESSION: The left chest tube has been pulled inferiorly and now lies at the level of hilum. Loculated left pleural effusion is unchanged to 07/05/2020. Underlying left lower lobe atelectasis is stable. Rest of the support lines and catheters are stable.
--- NOTE | 2020-07-05 | XR_ITS ---
EXAMINATION: XR CHEST CLINICAL INFORMATION: Pleural effusion. COMPARISON: Chest radiograph done earlier the same day at 7:53 AM. TECHNIQUE: Frontal view of the chest was obtained. FINDINGS: Endotracheal tube with its tip approximately 2.8 cm proximal to the yaw. Enterogastric tube with its tip beneath the left hemidiaphragm and extending beyond the imaged field of view. Left-sided central venous catheter with its tip in the region of the SVC. Redemonstration of a left basilar chest tube. Trace left-sided pleural effusion with adjacent atelectasis versus infiltrates, similar when compared to the prior examination. No pneumothorax. Stable cardiomediastinal silhouette. XR/XR chest 1V IMPRESSION: 1. Endotracheal tube with its tip approximately 2.8 cm proximal to the yaw. Redemonstration of a left-sided chest tube. Enterogastric tube and left-sided central venous catheter in appropriate position. 2. Trace left-sided pleural effusion with adjacent atelectasis versus infiltrates, similar when compared to the prior examination.
[2020-07-05] MEDS: Albuterol/Iprat 2.5/0.5MG 3 ML AMPUL.NEB INHALE ×6 (00:02→19:52)
[2020-07-05] MEDS: Piperacillin Sodium/Tazobactam 3.375 GM in 0.9 % Sodium Chloride 50 ML IV ×2 (01:15→03:59)
[2020-07-05] MEDS: vancomycin HCL Oral Solution 125 MG/5 ML SOLN.RECON PO (01:16)
[2020-07-05] MEDS: 0.9 % Sodium Chloride Flush 3 ML SYRINGE IVFLUSH ×4 (01:16→23:22)
[2020-07-05] MEDS: Nystatin Powder 15 GM BOTTLE 1 APPL TOPICAL ×3 (01:16→21:15)
[2020-07-05] MEDS: propofoL 1,000 MG/100 ML VIAL 15.31 MG IVCONT ×2 (01:53→07:43)
--- NOTE | 2020-07-05 05:00 | XR_ITS ---
EXAMINATION: XR CHEST CLINICAL INFORMATION: Pneumothorax. COMPARISON: 07/04/2010 TECHNIQUE: Frontal view of the chest was obtained. FINDINGS: Endotracheal tube terminates 4.7 cm above the yaw. Left internal jugular central venous catheter terminates in the mid SVC. Left pleural catheter terminates within the medial upper left hemithorax. Enteric tube courses through the stomach. Moderate left pleural effusion is stable in size. No pneumothorax component is evident on the current exam. Improving aeration within the left lower lung and right upper lung. Heart size and pulmonary vascularity within normal limits. No pleural effusion. XR/XR chest 1V IMPRESSION: Stable small left pleural effusion without appreciable pneumothorax component. Slightly improved aeration within the left lower lung and right upper lung.
[2020-07-05 05:23] LABS: MANUAL DIFF FLAG NO
[2020-07-05 05:24] LABS: Basophils Percent Auto 0.1 % (0-2); Eosinophils Absolute Auto 0.2 X10*3/uL (0.0-0.4); Hemoglobin 9.2 g/dl (12.0-16.0); Imm Gran Abs Auto 0.15 X10*3/uL (0.00-0.03); Imm Gran Pct Auto 0.9 % (0.0-0.4); Lymphocytes Absolute Auto 0.9 X10*3/uL (1.2-4.9); Lymphocytes Percent Auto 5.1 % (20-40); Mean Corpuscular HGB Conc 31.7 g/dl (31.0-35.0); Mean Corpuscular Volume 88.4 fL (80-98); Mean Platelet Volume 10.9 fL (9.4-12.3); Monocytes Absolute Auto 0.9 X10*3/uL (0.1-1.2); Monocytes Percent Auto 5.2 % (2-11); Neutrophils Absolute Auto 14.9 X10*3/uL (2.0-8.3); Neutrophils Percent Auto 87.7 % (45-73); Platelet Count 294 X10*3/uL (160-400); Red Blood Count 3.28 X10*6/uL (4.20-5.50); Red Cell Distribution Width 14.5 % (11.0-16.0)
[2020-07-05 05:32] LABS: pH VBG 7.33 (7.32-7.43)
[2020-07-05 05:33] LABS: Base Excess VBG -0.5 mmol/L; HCO3 VBG 26 mmol/L; Oxygen Saturation VBG 86.3 %; PCO2 VBG 51 mmhg; PO2 VBG 49 mmhg; Prothrombin Time 11.4 SEC (10.8-13.0)
[2020-07-05 06:05] LABS: Anion Gap 11 (12-20); Blood Urea Nitrogen 35 mg/dL (9-16); Calcium 7.3 mg/dL (8.4-10.2); Carbon Dioxide 26 mmol/L (22-29); Chloride 118 mmol/L (96-108); Creatinine Clr Calc Pharmacy 73.3; Estimated Glomerular Filt Rate > 60; Glucose Random 138 mg/dL (60-115); Magnesium 2.2 mg/dL (1.6-2.6); Phosphorus 1.7 mg/dL (2.7-4.5); Potassium 3.9 mmol/l (3.3-5.1); Sodium 151 mmol/L (135-145)
[2020-07-05] MEDS: Pantoprazole Sodium 40 MG/10 ML VIAL IVPUSH (06:23)
[2020-07-05] MEDS: metroNIDAZOLE/NS 500 MG/100 ML PIGGYBACK 100 MG IV ×3 (07:43→21:15)
[2020-07-05] MEDS: Chlorhexidine Gluc Oral Rinse 15 ML MOUTHWASH BUCCAL ×3 (07:43→21:15)
[2020-07-05] MEDS: Enoxaparin Sodium 40 MG/0.4 ML SYRINGE SUBCUT (10:37)
[2020-07-05] MEDS: propofoL 1,000 MG/100 ML VIAL 17.01 MG IVCONT ×3 (12:00→23:15)
--- NOTE | 2020-07-05 14:44 | PM.CCPN ---
Subjective Subjective Date of Service: 07/05/20 Interval History: 59-year-old female polysubstance abuser who has had overdoses and probably with diminished consciousness has aspirated presents with acute on chronic hypercarbic and hypoxic respiratory failure and this in instance aspiration pneumonitis and developed a left-sided empyema with large hydropneumothorax for which I placed 2 chest tubes discontinuing the lower 1 yesterday which which drained 2500 cc of pus and there was a small a reaccumulation of fluid so the upper 1 today under x-ray guidance I pulled back to where the collection was and is draining and has no recurrence of the pneumothorax and will recheck another chest film and decide about discontinuing the chest tube She has cognitive function nodded that she understood my conversation Growing anaerobic strep from the empyema fluid currently on Zosyn we added for synergy some Flagyl only has a 11 L minutes ventilatory requirement FiO2 is down to 30% with an excellent oxygen saturations of 96% excellent unsupported blood pressures Physical Exam Vital Signs: Vital Signs: Last Vital Signs Temp 98.8 F 07/05/20 13:00 Pulse 115 H 07/05/20 14:00 Resp 22 H 07/05/20 14:00 BP 113/52 L 07/05/20 14:00 Pulse Ox 96 07/05/20 14:00 Body Mass Index 22.8 Const: Other: Noted cognitive function Neurologic nonfocal Cardiac exam with normal sinus rhythm and normal S1 and normal S2 with no gallops Chest with some diffuse left-sided rales no wheezes Abdomen benign with no organomegaly and good bowel sounds soft and nontender tolerating feedings Skin is intact no wounds no acrocyanosis Objective Data Labs CBC & Chem 7: 07/05/20 04:50 07/05/20 04:50 Labs: Laboratory Results - last 24 hr 07/04/20 07/04/20 07/05/20 07:42 16:24 04:50 WBC 17.0 H RBC 3.28 L Hgb 9.2 L D Hct 29.0 L MCV 88.4 MCH 28.0 MCHC 31.7 RDW 14.5 Plt Count 294 MPV 10.9 Immature Gran % (Auto) 0.9 H Neut % (Auto) 87.7 H Lymph % (Auto) 5.1 L [place] % (Auto) 5.2 Eos % (Auto) 1.0 Baso % (Auto) 0.1 Lymph # (Auto) 0.9 L [place] # (Auto) 0.9 Eos # (Auto) 0.2 Baso # (Auto) 0.0 Abs Immat Gran (auto) 0.15 H Absolute Neuts (auto) 14.9 H Absolute Nucleated RBC 0.000 Nucleated RBC % (auto) 0.0 PT INR APTT VBG pH 7.28 L VBG pCO2 49 VBG pO2 68 VBG HCO3 23 VBG O2 Saturation 91.5 VBG Base Excess -3.9 Sodium Potassium Chloride Carbon Dioxide Anion Gap BUN Creatinine Estim Creat Clear Calc Estimated GFR Random Glucose Calcium Phosphorus Magnesium Blood Type A Positive Antibody Screen NEGATIVE Crossmatch See Detail 07/05/20 07/05/20 07/05/20 04:50 04:50 04:50 WBC RBC Hgb Hct MCV MCH MCHC RDW Plt Count MPV Immature Gran % (Auto) Neut % (Auto) Lymph % (Auto) [place] % (Auto) Eos % (Auto) Baso % (Auto) Lymph # (Auto) [place] # (Auto) Eos # (Auto) Baso # (Auto) Abs Immat Gran (auto) Absolute Neuts (auto) Absolute Nucleated RBC Nucleated RBC % (auto) PT 11.4 INR 1.0 APTT 30.0 VBG pH 7.33 VBG pCO2 51 VBG pO2 49 VBG HCO3 26 VBG O2 Saturation 86.3 VBG Base Excess -0.5 Sodium 151 H Potassium 3.9 Chloride 118 H Carbon Dioxide 26 Anion Gap 11 L BUN 35 H Creatinine 0.67 Estim Creat Clear Calc 73.3 Estimated GFR > 60 Random Glucose 138 H D Calcium 7.3 L Phosphorus 1.7 L Magnesium 2.2 Blood Type Antibody Screen Crossmatch Microbiology Microbiology Results: Microbiology 07/03/20 14:17 Sputum - Suctioned Gram Stain - Final 07/03/20 14:17 Sputum - Suctioned Sputum Culture - Final 07/02/20 01:38 Pleural Fluid Gram Stain - Final 07/02/20 01:38 Pleural Fluid Routine Culture - Final No growth after 2 days 07/02/20 01:38 Pleural Fluid Anaerobic Culture - Final Anaerococcus tetradius 07/01/20 20:30 Sputum - Suctioned Gram Stain - Final 07/01/20 20:30 Sputum - Suctioned Sputum Culture - Final 06/26/20 13:55 Lung Left Lower Lobe Direct Acid Fast Bacilli Smear - Final 06/26/20 13:55 Lung Left Lower Lobe Direct Acid Fast Bacilli Smear - Final 06/26/20 13:55 Lung Left Lower Lobe Fungal Identification - Preliminary No growth to date. 06/26/20 13:55 Lung Left Lower Lobe Fungal Identification - Preliminary No growth to date. 06/24/20 20:36 Blood - Venous Blood Culture - Final No growth after 5 days. 06/24/20 20:36 Blood - Venous Blood Culture - Final No growth after 5 days. 06/24/20 15:11 Stool Stool Culture - Final Aga albicans 06/26/20 13:55 Lung Left Lower Lobe Gram Stain - Final 06/26/20 13:55 Lung Left Lower Lobe Routine Culture - Final No growth after 2 days 06/26/20 13:55 Lung Left Lower Lobe Gram Stain - Final 06/26/20 13:55 Lung Left Lower Lobe Routine Culture - Final No growth after 2 days 06/19/20 04:07 Blood - Venous Blood Culture - Final Coag negative Staphylococcus 06/19/20 04:07 Blood - Venous Blood Culture - Final No growth after 5 days. Progress Note: A&P Assessment and plan (1) Hydropneumothorax: Status: Acute (2) Pneumothorax on left: Problem details: Has developed massive Pneumothorax of the Lt chest ,sec to failure of the lung to expand , Discussed with Dr. Cano, , I think next step should be placement of a large bore chest tube , and leave it to continuous suctioning . Discussed with Dr. Lenz , and a repeat Bronchoscopy to do another bronchial lavage . Status: Acute (3) JOSIAH (acute kidney injury): Problem details: Minimal uptick in BUN/Cr- beginning to improve Avoid nephrotoxins and hypotension Keep I > O Hypernatremia due to free water deficit Keep I > O With free water Status: Acute (4) Atelectasis of left lung: Problem details: S/P intubation , with partial expansion of lt lung . She is improving Day 10 Zosyn and Flagyl po Vancomycin day 3 Status: Acute (5) Clostridioides difficile infection: Problem details: Continue po Vancomycin Status: Acute (6) Leukocytosis: Status: Acute (7) Cavitary pneumonia: Problem details: CONTINUE THE CURRENT ANTIBIOTICS . Status: Acute (8) Hyponatremia: Problem details: REsolved Status: Acute (9) Leukocytosis: Status: Acute (10) Anxiety: Status: Acute (11) Pneumonia: Status: Acute (12) COPD exacerbation: Status: Acute (13) Sepsis: Status: Acute (14) Asthma with COPD (chronic obstructive pulmonary disease): Status: Acute (15) Acute hypernatremia: Status: Acute Assessment and Plan: So I treated the reaccumulation of fluid by pulling back the upper chest tube and a began to drain so clinically it is helping to evacuate this collection and I will repeat chest x-ray later the hypernatremia and is representing relative hypo volemia but due to free water loss in excess and treating that with free water replacement and we will recheck BMP and if lung looks like it is well re-expanded with the significantly diminished drainage I might next elect to removed the last chest tube and then give her a sedation holiday and if is comfortable then begin the ventilator weaning utilizing pressure support Time Spent With Patient Time: Total time spent is greater than 50% in coordination of care (as documented) at patient's floor/unit and/or counseling patient: Total time spent with greater than 50% in coordination of care (as documented) at patient's floor/unit and/or counseling patient:: 45
[2020-07-05 16:53] LABS: Anion Gap 11 (12-20); Blood Urea Nitrogen 30 mg/dL (9-16); Calcium 7.1 mg/dL (8.4-10.2); Carbon Dioxide 26 mmol/L (22-29); Chloride 118 mmol/L (96-108); Creatinine Clr Calc Pharmacy 74.4; Estimated Glomerular Filt Rate > 60; Glucose Random 132 mg/dL (60-115); Potassium 3.8 mmol/l (3.3-5.1); Sodium 151 mmol/L (135-145)
--- NOTE | 2020-07-05 16:59 | ECG_ITS ---
Test Reason : PER CARDIOLOGY, ORDER ON 07/05/20 AT 16:59:48 Blood Pressure : / mmHG Vent. Rate : 102 BPM Atrial Rate : 102 BPM P-R Int : 122 ms QRS Dur : 074 ms QT Int : 336 ms P-R-T Axes : 036 017 053 degrees QTc Int : 437 ms Sinus tachycardia Otherwise normal ECG When compared with ECG of 26-JUN-2020 03:55, No significant change was found Referred By: Tereza Gordillo Electronically Signed By:Naveen Grant
[2020-07-05] MEDS: Dextrose 5 % 500 ML 250 ML IVCONT (17:16)
--- NOTE | 2020-07-05 19:15 | PC.NURSE ---
Left lateral chest tube pulled back by MD - no sutures placed; occlusive dressing intact - approx 255cc serosanginous drainage throughout shift - MD aware HR periodically up to 110-120's, sinus - MD aware - no new orders - Currently SR 80-90's on monitor. NA up to 151 - water flushes increased to 240 q4hr
[2020-07-06] VITALS (36 sets, daily range): BP systolic 106–152; BP diastolic 41–77; PULSE 72–94; RESP 14–31; TEMP 36.3–36.9; O2SAT 96–100
--- NOTE | 2020-07-06 | XR_ITS ---
EXAMINATION: XR CHEST CLINICAL INFORMATION: Endotracheal tube migration COMPARISON: Previous day TECHNIQUE: Frontal view of the chest was obtained. FINDINGS: Endotracheal tube terminates 3.1 cm above the yaw. Left internal jugular central venous catheter terminates within the mid SVC. Left pleural pigtail catheter stably positioned. Enteric tube courses to the stomach. No appreciable pneumothorax. Stable small left pleural effusion with accompanying atelectasis. Patchy airspace opacities within the left lung are unchanged. XR/XR chest 1V IMPRESSION: Endotracheal tube terminates 3.1 cm above the yaw Stable small left pleural effusion with accompanying atelectasis. Stable patchy opacities within the left lung.
[2020-07-06] MEDS: Albuterol/Iprat 2.5/0.5MG 3 ML AMPUL.NEB INHALE ×6 (00:12→20:57)
[2020-07-06] MEDS: metroNIDAZOLE/NS 500 MG/100 ML PIGGYBACK 100 MG IV ×4 (03:00→19:48)
[2020-07-06] MEDS: Midazolam HCl/NS 50 MG/50 ML PLAST..BAG IVCONT (03:03)
[2020-07-06] MEDS: propofoL 1,000 MG/100 ML VIAL 17.01 MG IVCONT (03:49)
[2020-07-06 05:54] LABS: MANUAL DIFF FLAG NO
[2020-07-06 06:00] LABS: Basophils Percent Auto 0.1 % (0-2); Eosinophils Absolute Auto 0.3 X10*3/uL (0.0-0.4); Eosinophils Percent Auto 1.7 % (0-4); Hematocrit 25.5 % (37-47); Hemoglobin 8.1 g/dl (12.0-16.0); Imm Gran Abs Auto 0.12 X10*3/uL (0.00-0.03); Imm Gran Pct Auto 0.8 % (0.0-0.4); Lymphocytes Absolute Auto 0.8 X10*3/uL (1.2-4.9); Lymphocytes Percent Auto 5.2 % (20-40); Mean Corpuscular HGB Conc 31.8 g/dl (31.0-35.0); Mean Corpuscular Hemoglobin 27.6 pg (27.0-33.0); Mean Corpuscular Volume 86.7 fL (80-98); Mean Platelet Volume 11.1 fL (9.4-12.3); Monocytes Absolute Auto 0.7 X10*3/uL (0.1-1.2); Monocytes Percent Auto 4.8 % (2-11); Neutrophils Absolute Auto 13.2 X10*3/uL (2.0-8.3); Neutrophils Percent Auto 87.4 % (45-73); Platelet Count 246 X10*3/uL (160-400); Red Blood Count 2.94 X10*6/uL (4.20-5.50); Red Cell Distribution Width 14.6 % (11.0-16.0); White Blood Count 15.1 X10*3/uL (4.8-10.8)
[2020-07-06 06:08] LABS: Base Excess VBG 0.9 mmol/L; HCO3 VBG 26 mmol/L; Oxygen Saturation VBG 86.2 %; PCO2 VBG 43 mmhg; PO2 VBG 50 mmhg
[2020-07-06 06:14] LABS: Prothrombin Time 11.7 SEC (10.8-13.0)
[2020-07-06 06:17] LABS: Partial Thromboplastin Time 29.7 SEC (24.1-38.0)
[2020-07-06] MEDS: Pantoprazole Sodium 40 MG/10 ML VIAL IVPUSH (06:20)
[2020-07-06 06:22] LABS: Anion Gap 9 (12-20); Blood Urea Nitrogen 24 mg/dL (9-16); Calcium 6.9 mg/dL (8.4-10.2); Carbon Dioxide 27 mmol/L (22-29); Chloride 115 mmol/L (96-108); Creatinine Clr Calc Pharmacy 79.1; Estimated Glomerular Filt Rate > 60; Glucose Random 113 mg/dL (60-115); Magnesium 1.9 mg/dL (1.6-2.6); Phosphorus 1.5 mg/dL (2.7-4.5); Potassium 3.5 mmol/l (3.3-5.1); Sodium 147 mmol/L (135-145)
--- NOTE | 2020-07-06 06:42 | PC.NURSE ---
PT MAINTAINED ON PRESSURE CONTROL VENT SETTINGS OVERNIGHT. DURING REPOSITIONING DURING A BEDBATH, ETT GOT PULLED OUT TO THE 17 CM LIP KENNY. WAS AT 21 CM LIP KENNY. PT WAS NOT IN DISTRESS AND O2 SAT WERE STILL IN THE 90'S WITH GOOD TIDAL VOLUMES IN THE 400'S. ETT WAS POSITIONED BACK TO THE PROPER PLACEMENT BY MAYO CORRALES WITH THE ASSISTANCE OF RESP THERAPY USING THE GLIDESCOPE. PCXR WAS DONE TO CONFIRM PLACEMENT. PT SELWYN PROCEDURE WELL WITH NO UNTOWARD EFFECT. PT RECEIVING TUBE FEEDS AND SELWYN WELL. FREE WATER FLUSHES ORDERED. STARTED HAVING LIQUID STOOL. RECTAL TUBE PLACED. PT WAS WIDE AWAKE AT ONE POINT OF PROPOFOL 50 MCG/KG/MIN AND VERSED WAS ADDED WITH GOOD EFFECT. VITAL SIGNS STABLE. MONITOR SHOWS NSR, HR 80'S.
--- NOTE | 2020-07-06 07:34 | PC.NURSE ---
Left lateral chest tube removed at bedside by Dr Lowery at 0730 without complications. Occulsive dressing applied. Plan for sedation vacation and vent weaning. Will continue to monitor.
[2020-07-06] MEDS: Fluconazole in NaCl,Iso-Osm 200 MG/100 ML PIGGYBACK 100 MG IV (07:48)
[2020-07-06] MEDS: 0.9 % Sodium Chloride Flush 3 ML SYRINGE IVFLUSH ×2 (07:48→17:27)
[2020-07-06] MEDS: Chlorhexidine Gluc Oral Rinse 15 ML MOUTHWASH BUCCAL (07:48)
[2020-07-06] MEDS: Nystatin Powder 15 GM BOTTLE 1 APPL TOPICAL ×2 (09:07→22:33)
[2020-07-06] MEDS: Enoxaparin Sodium 40 MG/0.4 ML SYRINGE SUBCUT (12:03)
--- NOTE | 2020-07-06 12:41 | P.PNCC_ITS ---
Subjective Subjective Date of Service: 07/06/20 Interval History: 59-year-old with polysubstance abuse with diminished levels of consciousness by history and probable aspiration presents with acute on chronic hypercarbic/hypoxic respiratory failure with complete left lung atelectasis but also very large hydropneumothorax 2 chest tubes placed draining 2500 cc of of pus making this an empyema and addition to come to draining the pneumothorax with complete reexpansion of the lung both chest tubes now discontinued still draining through the opening her and 0 did awaken appropriately after sedation was stopped with good cognitive function placed on a pressure support trial did beautifully able to double her tidal volumes on the on a vital capacity breath and minute ventilatory requirements about 11 L her and with that she was comfortably extubated and placed on nasal high-flow at 40 liters/minute and titrating oxygen saturation to ane at 90% level will probably check a blood gas a little bit later and she will remain on antibiotics and we ordered grew and anaerobic strep species Physical Exam Vital Signs: Vital Signs: Last Vital Signs Temp 98.4 F 07/06/20 12:00 Pulse 91 07/06/20 12:00 Resp 24 H 07/06/20 12:00 BP 145/69 H 07/06/20 12:00 Pulse Ox 97 07/06/20 11:00 Body Mass Index 22.8 Const: Other: Awake alert and oriented Neurological is nonfocal Skin is intact with no acrocyanosis and no wounds Abdomen is benign with no distension no tenderness and good bowel sounds A chest without adventitious sounds and no accessory muscle use Cardiac exam normal with no gallops or murmurs Objective Data Labs CBC & Chem 7: 07/06/20 05:20 07/06/20 05:20 Labs: Laboratory Results - last 24 hr 07/05/20 07/06/20 07/06/20 16:01 05:20 05:20 WBC 15.1 H RBC 2.94 L Hgb 8.1 L Hct 25.5 L MCV 86.7 MCH 27.6 MCHC 31.8 RDW 14.6 Plt Count 246 MPV 11.1 Immature Gran % (Auto) 0.8 H Neut % (Auto) 87.4 H Lymph % (Auto) 5.2 L [place] % (Auto) 4.8 Eos % (Auto) 1.7 Baso % (Auto) 0.1 Lymph # (Auto) 0.8 L [place] # (Auto) 0.7 Eos # (Auto) 0.3 Baso # (Auto) 0.0 Abs Immat Gran (auto) 0.12 H Absolute Neuts (auto) 13.2 H Absolute Nucleated RBC 0.000 Nucleated RBC % (auto) 0.0 PT 11.7 INR 1.0 APTT 29.7 VBG pH VBG pCO2 VBG pO2 VBG HCO3 VBG O2 Saturation VBG Base Excess Sodium 151 H Potassium 3.8 Chloride 118 H Carbon Dioxide 26 Anion Gap 11 L BUN 30 H Creatinine 0.66 Estim Creat Clear Calc 74.4 Estimated GFR > 60 Random Glucose 132 H Calcium 7.1 L Phosphorus Magnesium 07/06/20 07/06/20 05:20 05:20 WBC RBC Hgb Hct MCV MCH MCHC RDW Plt Count MPV Immature Gran % (Auto) Neut % (Auto) Lymph % (Auto) [place] % (Auto) Eos % (Auto) Baso % (Auto) Lymph # (Auto) [place] # (Auto) Eos # (Auto) Baso # (Auto) Abs Immat Gran (auto) Absolute Neuts (auto) Absolute Nucleated RBC Nucleated RBC % (auto) PT INR APTT VBG pH 7.40 VBG pCO2 43 VBG pO2 50 VBG HCO3 26 VBG O2 Saturation 86.2 VBG Base Excess 0.9 Sodium 147 H Potassium 3.5 Chloride 115 H Carbon Dioxide 27 Anion Gap 9 L BUN 24 H Creatinine 0.62 Estim Creat Clear Calc 79.1 Estimated GFR > 60 Random Glucose 113 Calcium 6.9 L Phosphorus 1.5 L Magnesium 1.9 Microbiology Microbiology Results: Microbiology 07/03/20 14:17 Sputum - Suctioned Gram Stain - Final 07/03/20 14:17 Sputum - Suctioned Sputum Culture - Final 07/02/20 01:38 Pleural Fluid Gram Stain - Final 07/02/20 01:38 Pleural Fluid Routine Culture - Final No growth after 2 days 07/02/20 01:38 Pleural Fluid Anaerobic Culture - Final Anaerococcus tetradius 07/01/20 20:30 Sputum - Suctioned Gram Stain - Final 07/01/20 20:30 Sputum - Suctioned Sputum Culture - Final 06/26/20 13:55 Lung Left Lower Lobe Direct Acid Fast Bacilli Smear - Final 06/26/20 13:55 Lung Left Lower Lobe Direct Acid Fast Bacilli Smear - Final 06/26/20 13:55 Lung Left Lower Lobe Fungal Identification - Preliminary No growth to date. 06/26/20 13:55 Lung Left Lower Lobe Fungal Identification - Preliminary No growth to date. 06/24/20 20:36 Blood - Venous Blood Culture - Final No growth after 5 days. 06/24/20 20:36 Blood - Venous Blood Culture - Final No growth after 5 days. 06/24/20 15:11 Stool Stool Culture - Final Aga albicans 06/26/20 13:55 Lung Left Lower Lobe Gram Stain - Final 06/26/20 13:55 Lung Left Lower Lobe Routine Culture - Final No growth after 2 days 06/26/20 13:55 Lung Left Lower Lobe Gram Stain - Final 06/26/20 13:55 Lung Left Lower Lobe Routine Culture - Final No growth after 2 days 06/19/20 04:07 Blood - Venous Blood Culture - Final Coag negative Staphylococcus 06/19/20 04:07 Blood - Venous Blood Culture - Final No growth after 5 days. Progress Note: A&P Assessment and plan (1) Acute hypernatremia: Status: Acute (2) Hydropneumothorax: Status: Acute (3) Pneumothorax on left: Problem details: Has developed massive Pneumothorax of the Lt chest ,sec to failure of the lung to expand , Discussed with Dr. Cano, , I think next step should be placement of a large bore chest tube , and leave it to continuous suctioning . Discussed with Dr. Lenz , and a repeat Bronchoscopy to do another bronchial lavage . Status: Acute (4) JOSIAH (acute kidney injury): Problem details: Minimal uptick in BUN/Cr- beginning to improve Avoid nephrotoxins and hypotension Keep I > O Hypernatremia due to free water deficit Keep I > O With free water Status: Acute (5) Atelectasis of left lung: Problem details: S/P intubation , with partial expansion of lt lung . She is improving Day 10 Zosyn and Flagyl po Vancomycin day 3 Status: Acute (6) Clostridioides difficile infection: Problem details: Continue po Vancomycin Status: Acute (7) Leukocytosis: Status: Acute (8) Hyponatremia: Problem details: REsolved Status: Acute (9) Leukocytosis: Status: Acute (10) Anxiety: Status: Acute (11) COPD exacerbation: Status: Acute (12) Pneumonia: Status: Acute (13) Sepsis: Status: Acute (14) Asthma with COPD (chronic obstructive pulmonary disease): Status: Acute Assessment and Plan: So she will remain on breathing treatments and nasal high-flow for the provision of at least 5 of CPAP and follow her VBG and chest x-ray to be sure there is no reaccumulation of fluid Time Spent With Patient Time: Total time spent is greater than 50% in coordination of care (as documented) at patient's floor/unit and/or counseling patient: Total time spent with greater than 50% in coordination of care (as documented) at patient's floor/unit and/or counseling patient:: 40
--- NOTE | 2020-07-06 18:25 | PC.NURSE ---
pt was extuabted this morning approx 0900, started sedation vacation around 0800. pt tolerating extubation well, spo2 99-100% on high flow nc. able to speak in full sentences w very hoarse voice. able to make needs known, no apparent resp distress noted. swallow and gag in place, tolerating po w/o issue, has been requesting ice chips. vss.
[2020-07-06] MEDS: LORazepam 2 MG/ML VIAL 0.5 MG IVPUSH (19:49)
[2020-07-07] VITALS (28 sets, daily range): BP systolic 107–165; BP diastolic 47–87; PULSE 76–107; RESP 18–27; TEMP 36.8–37.1; O2SAT 92–100
--- NOTE | 2020-07-07 | XR_ITS ---
EXAMINATION: XR CHEST CLINICAL INFORMATION: Evaluate pneumothorax/hydropneumothorax COMPARISON: Previous day TECHNIQUE: Frontal view of the chest was obtained. FINDINGS: Interval extubation. Left internal jugular central venous catheter terminates within the mid SVC. Left pleural pigtail catheter has been removed. Enteric tube is been removed. Moderate left pleural effusion appears to be increase in size in the interim, with accompanying atelectasis. Trace pneumothorax component at the left lung apex. Small right pleural effusion with accompanying atelectasis. Heart size and pulmonary vascularity within normal limits. XR/XR chest 1V IMPRESSION: * Interval extubation, removal of left pleural pigtail catheter and enteric tubes. * Moderate left pleural effusion is increase in size from prior, with accompanying atelectasis. Trace left apical pneumothorax. * New small right pleural effusion with accompanying atelectasis.
[2020-07-07] MEDS: 0.9 % Sodium Chloride Flush 3 ML SYRINGE IVFLUSH ×5 (00:09→23:32)
[2020-07-07] MEDS: Albuterol/Iprat 2.5/0.5MG 3 ML AMPUL.NEB INHALE ×6 (01:08→20:03)
[2020-07-07] MEDS: LORazepam 2 MG/ML VIAL 0.5 MG IVPUSH ×3 (01:10→18:44)
[2020-07-07] MEDS: metroNIDAZOLE/NS 500 MG/100 ML PIGGYBACK 100 MG IV (02:07)
[2020-07-07 05:15] LABS: Basophils Percent Auto 0.1 % (0-2); Eosinophils Absolute Auto 0.3 X10*3/uL (0.0-0.4); Hematocrit 25.6 % (37-47); Hemoglobin 8.1 g/dl (12.0-16.0); Imm Gran Abs Auto 0.11 X10*3/uL (0.00-0.03); Imm Gran Pct Auto 0.7 % (0.0-0.4); Lymphocytes Absolute Auto 0.7 X10*3/uL (1.2-4.9); Lymphocytes Percent Auto 4.5 % (20-40); MANUAL DIFF FLAG SCAN; Mean Corpuscular HGB Conc 31.6 g/dl (31.0-35.0); Mean Corpuscular Hemoglobin 27.7 pg (27.0-33.0); Mean Corpuscular Volume 87.7 fL (80-98); Mean Platelet Volume 10.8 fL (9.4-12.3); Monocytes Absolute Auto 0.7 X10*3/uL (0.1-1.2); Monocytes Percent Auto 4.4 % (2-11); Neutrophils Absolute Auto 13.5 X10*3/uL (2.0-8.3); Neutrophils Percent Auto 88.3 % (45-73); Platelet Count 249 X10*3/uL (160-400); Red Blood Count 2.92 X10*6/uL (4.20-5.50); Red Cell Distribution Width 14.9 % (11.0-16.0); SCAN SMEAR FLAG 1; White Blood Count 15.3 X10*3/uL (4.8-10.8)
[2020-07-07 05:21] LABS: INTERNATIONAL NORM RATIO 1.1 (0.9-1.1); Prothrombin Time 12.5 SEC (10.8-13.0)
[2020-07-07 05:23] LABS: Base Excess VBG -1.1 mmol/L; HCO3 VBG 24 mmol/L; Oxygen Saturation VBG 84.6 %; PCO2 VBG 39 mmhg; PO2 VBG 48 mmhg; Partial Thromboplastin Time 30.9 SEC (24.1-38.0)
[2020-07-07] MEDS: Pantoprazole Sodium 40 MG/10 ML VIAL IVPUSH (05:34)
[2020-07-07 05:42] LABS: Anion Gap 11 (12-20); Blood Urea Nitrogen 17 mg/dL (9-16); Carbon Dioxide 26 mmol/L (22-29); Chloride 116 mmol/L (96-108); Creatinine Clr Calc Pharmacy 86.1; Estimated Glomerular Filt Rate > 60; Glucose Random 85 mg/dL (60-115); Magnesium 1.9 mg/dL (1.6-2.6); Phosphorus 2.1 mg/dL (2.7-4.5); Potassium 3.7 mmol/l (3.3-5.1); Sodium 149 mmol/L (135-145)
[2020-07-07 05:57] LABS: SLIDE REVIEW VERIFIED
--- NOTE | 2020-07-07 07:44 | MHC.PIE ---
Addendum entered by Reese Machado RN 07/07/20 07:49: Insertion site from where chest tube was on left chest, dressing changed, dry sterile with tagaderm dressing applied. Previously noted to have small amt of serous drainage. No new drainage noted through shift. Original Note: Shift eval 7p-7a - Patient titrated down on high flow to 35% and 35 liters. AFebrile. Shallow respirations, high O2sat high 90's. Issues w/ anxiety (on PO xanax at home), Anh HUBER at bedside - ordered 0.5mg IVP ativan now doses 2 times - given @ 1949 & 0127 with good effect. Patient able to sleep and reports relief. Periarea macerated, pinpoint open area on bilat buttocks - question pressure or contact dermatitis. Repos Q2H, Patient tolerated. Full bath given.
--- NOTE | 2020-07-07 09:18 | PM.PNNEP ---
Subjective Subjective Date of Service: 07/07/20 Principal diagnosis: Cavitary Pneumonia Lt lower lobe . Interval history: Events noted Stillintubated Physical Exam Vital Signs: Vital Signs: Last Vital Signs Temp 98.5 F 07/07/20 03:00 Pulse 88 07/07/20 09:07 Resp 23 H 07/07/20 09:00 BP 116/55 L 07/07/20 09:00 Pulse Ox 97 07/07/20 09:00 Body Mass Index 22.8 Const: General: ill appearing Neck: Neck: Yes supple Resp: Auscultation: diminished lung sounds Cardio: Heart sounds: no gallops and no rubs Neuro: Motor exam (neuro): No Asterixis during motor activity present Objective Data Labs CBC & Chem 7: 07/07/20 04:39 07/07/20 04:39 Labs: Laboratory Results - last 24 hr 07/07/20 07/07/20 07/07/20 04:39 04:39 04:39 WBC 15.3 H RBC 2.92 L Hgb 8.1 L Hct 25.6 L MCV 87.7 MCH 27.7 MCHC 31.6 RDW 14.9 Plt Count 249 MPV 10.8 Immature Gran % (Auto) 0.7 H Neut % (Auto) 88.3 H Lymph % (Auto) 4.5 L [place] % (Auto) 4.4 Eos % (Auto) 2.0 Baso % (Auto) 0.1 Lymph # (Auto) 0.7 L [place] # (Auto) 0.7 Eos # (Auto) 0.3 Baso # (Auto) 0.0 Abs Immat Gran (auto) 0.11 H Absolute Neuts (auto) 13.5 H Absolute Nucleated RBC 0.000 Nucleated RBC % (auto) 0.0 Smear Tech's Comments VERIFIED PT 12.5 INR 1.1 APTT 30.9 VBG pH VBG pCO2 VBG pO2 VBG HCO3 VBG O2 Saturation VBG Base Excess Sodium 149 H Potassium 3.7 Chloride 116 H Carbon Dioxide 26 Anion Gap 11 L BUN 17 H Creatinine 0.57 Estim Creat Clear Calc 86.1 Estimated GFR > 60 Random Glucose 85 Calcium 7.0 L Phosphorus 2.1 L Magnesium 1.9 Albumin 2.0 L D 07/07/20 04:39 WBC RBC Hgb Hct MCV MCH MCHC RDW Plt Count MPV Immature Gran % (Auto) Neut % (Auto) Lymph % (Auto) [place] % (Auto) Eos % (Auto) Baso % (Auto) Lymph # (Auto) [place] # (Auto) Eos # (Auto) Baso # (Auto) Abs Immat Gran (auto) Absolute Neuts (auto) Absolute Nucleated RBC Nucleated RBC % (auto) Smear Tech's Comments PT INR APTT VBG pH 7.40 VBG pCO2 39 VBG pO2 48 VBG HCO3 24 VBG O2 Saturation 84.6 VBG Base Excess -1.1 Sodium Potassium Chloride Carbon Dioxide Anion Gap BUN Creatinine Estim Creat Clear Calc Estimated GFR Random Glucose Calcium Phosphorus Magnesium Albumin Microbiology Microbiology Results: Microbiology 07/03/20 14:17 Sputum - Suctioned Gram Stain - Final 07/03/20 14:17 Sputum - Suctioned Sputum Culture - Final 07/02/20 01:38 Pleural Fluid Gram Stain - Final 07/02/20 01:38 Pleural Fluid Routine Culture - Final No growth after 2 days 07/02/20 01:38 Pleural Fluid Anaerobic Culture - Final Anaerococcus tetradius 07/01/20 20:30 Sputum - Suctioned Gram Stain - Final 07/01/20 20:30 Sputum - Suctioned Sputum Culture - Final 06/26/20 13:55 Lung Left Lower Lobe Direct Acid Fast Bacilli Smear - Final 06/26/20 13:55 Lung Left Lower Lobe Direct Acid Fast Bacilli Smear - Final 06/26/20 13:55 Lung Left Lower Lobe Fungal Identification - Preliminary No growth to date. 06/26/20 13:55 Lung Left Lower Lobe Fungal Identification - Preliminary No growth to date. 06/24/20 20:36 Blood - Venous Blood Culture - Final No growth after 5 days. 06/24/20 20:36 Blood - Venous Blood Culture - Final No growth after 5 days. 06/24/20 15:11 Stool Stool Culture - Final Aga albicans 06/26/20 13:55 Lung Left Lower Lobe Gram Stain - Final 06/26/20 13:55 Lung Left Lower Lobe Routine Culture - Final No growth after 2 days 06/26/20 13:55 Lung Left Lower Lobe Gram Stain - Final 06/26/20 13:55 Lung Left Lower Lobe Routine Culture - Final No growth after 2 days 06/19/20 04:07 Blood - Venous Blood Culture - Final Coag negative Staphylococcus 06/19/20 04:07 Blood - Venous Blood Culture - Final No growth after 5 days. Assessment & Plan Assessment and plan (1) JOSIAH (acute kidney injury): Problem details: Renal fx stable Avoid nephrotoxins and hypotension Keep I > O Hypernatremia due to free water deficit Keep I > O With free water Status: Acute Time Spent With Patient Time: Total time spent is greater than 50% in coordination of care (as documented) at patient's floor/unit and/or counseling patient:
[2020-07-07] MEDS: Furosemide 40 MG/4 ML VIAL IVPUSH (10:29)
[2020-07-07] MEDS: Albumin Human 25 % 100 ML IV ×3 (10:30→23:13)
[2020-07-07] MEDS: Magnesium Sulfate/H2O 2 GM/50 ML PIGGYBACK IV (10:33)
[2020-07-07] MEDS: Potassium Phosphate 30 MMOL in 0.9 % Sodium Chloride 500 ML 85 MMOL IV (10:34)
[2020-07-07] MEDS: Nystatin Powder 15 GM BOTTLE 1 APPL TOPICAL ×2 (10:35→23:27)
--- NOTE | 2020-07-07 10:50 | MHC.CLN ---
F/U PT CURRENTLY NPO DIET TO RESUME PENDING SWALLOW EVAL WHEN DIET TO ADVANCE, MONITOR PO INTAKE CLOSELY FOLLOWING
--- NOTE | 2020-07-07 10:57 | MHC.CM.PN ---
Patient remains in ICU on high flow oxygen. Patient was extubated 07/06. Patient is currently confused. No HCP is on file. Will need physical therapy eval for home safety when medically stable. Continue to monitor for d/c needs.
[2020-07-07] MEDS: Enoxaparin Sodium 40 MG/0.4 ML SYRINGE SUBCUT (11:16)
[2020-07-07] MEDS: fentaNYL 25 MCG PATCH.TD72 TRANSDERMA (11:17)
[2020-07-07 12:47] LABS: BCR Prior Result Not Given; P190 BCR/ABL1 Not Detected; P210 BCR/ABL1 Not Detected
--- NOTE | 2020-07-07 13:33 | P.PNCC_ITS ---
Subjective Subjective Date of Service: 07/07/20 Interval History: 59-year-old lady with underlying history of COPD, back pain admitted on 06/19/2020 with progressive dyspnea and deemed to be secondary to COPD exacerbation and treated for such. Hospital course complicated by acute heroin intoxication resulting in aspiration pneumonia further complicated by left-sided empyema and pneumothorax, requiring ventilatory support now, status post 2 bronchoscopies, successfully extubated on 07/06/2020, also C diff colitis and pleural effusions. Patient continues on broad-spectrum antibiotic coverage for anaerobic lung infection. No events overnight. Oxygen requirements improving, titrated down to 4 L Oxymizer cannula. Physical Exam Vital Signs: Vital Signs: Last Vital Signs Temp 98.5 F 07/07/20 03:00 Pulse 94 07/07/20 12:00 Resp 26 H 07/07/20 12:00 BP 134/64 07/07/20 12:00 Pulse Ox 99 07/07/20 12:00 Body Mass Index 22.8 Const: General: no acute distress, alert and awake Eyes: Sclerae: sclerae normal EOM: EOMs intact bilaterally Neck: Neck: Yes no lymphadenopathy, Yes trachea midline and Yes supple Resp: Effort & Inspection: normal respiratory effort and no respiratory distress Auscultation: other (Diminished left basilar air movement) Cardio: Rate: regular rate Rhythm: regular rhythm Heart sounds: no gallops, no murmurs and no rubs GI: Palpation (GI): Soft to palpation and Other GI palpation findings present ( Nontender) Auscultation: normal bowel sounds Extrem: General: No clubbing, No cyanosis and Yes edema (1+ bilateral) Objective Data Labs CBC & Chem 7: 07/07/20 04:39 07/07/20 04:39 Labs: Laboratory Results - last 24 hr 06/27/20 07/07/20 07/07/20 12:14 04:39 04:39 WBC 15.3 H RBC 2.92 L Hgb 8.1 L Hct 25.6 L MCV 87.7 MCH 27.7 MCHC 31.6 RDW 14.9 Plt Count 249 MPV 10.8 Immature Gran % (Auto) 0.7 H Neut % (Auto) 88.3 H Lymph % (Auto) 4.5 L [place] % (Auto) 4.4 Eos % (Auto) 2.0 Baso % (Auto) 0.1 Lymph # (Auto) 0.7 L [place] # (Auto) 0.7 Eos # (Auto) 0.3 Baso # (Auto) 0.0 Abs Immat Gran (auto) 0.11 H Absolute Neuts (auto) 13.5 H Absolute Nucleated RBC 0.000 Nucleated RBC % (auto) 0.0 Smear Tech's Comments VERIFIED PT 12.5 INR 1.1 APTT 30.9 VBG pH VBG pCO2 VBG pO2 VBG HCO3 VBG O2 Saturation VBG Base Excess Sodium Potassium Chloride Carbon Dioxide Anion Gap BUN Creatinine Estim Creat Clear Calc Estimated GFR Random Glucose Calcium Phosphorus Magnesium Albumin BCR/abl (FISH) Source Peripheral Blood BCR/abl (FISH) Result 0.000 BCR/abl (FISH) Res Sum see note BCR/abl Comment 0.000 BCR/abl Additionl Info Not Given BCR/abl1 Mnr (p190) EER Not Detected BCR/abl1 Mjr (p210) EER Not Detected 07/07/20 07/07/20 04:39 04:39 WBC RBC Hgb Hct MCV MCH MCHC RDW Plt Count MPV Immature Gran % (Auto) Neut % (Auto) Lymph % (Auto) [place] % (Auto) Eos % (Auto) Baso % (Auto) Lymph # (Auto) [place] # (Auto) Eos # (Auto) Baso # (Auto) Abs Immat Gran (auto) Absolute Neuts (auto) Absolute Nucleated RBC Nucleated RBC % (auto) Smear Tech's Comments PT INR APTT VBG pH 7.40 VBG pCO2 39 VBG pO2 48 VBG HCO3 24 VBG O2 Saturation 84.6 VBG Base Excess -1.1 Sodium 149 H Potassium 3.7 Chloride 116 H Carbon Dioxide 26 Anion Gap 11 L BUN 17 H Creatinine 0.57 Estim Creat Clear Calc 86.1 Estimated GFR > 60 Random Glucose 85 Calcium 7.0 L Phosphorus 2.1 L Magnesium 1.9 Albumin 2.0 L D BCR/abl (FISH) Source BCR/abl (FISH) Result BCR/abl (FISH) Res Sum BCR/abl Comment BCR/abl Additionl Info BCR/abl1 Mnr (p190) EER BCR/abl1 Mjr (p210) EER Microbiology Microbiology Results: Microbiology 07/03/20 14:17 Sputum - Suctioned Gram Stain - Final 07/03/20 14:17 Sputum - Suctioned Sputum Culture - Final 07/02/20 01:38 Pleural Fluid Gram Stain - Final 07/02/20 01:38 Pleural Fluid Routine Culture - Final No growth after 2 days 07/02/20 01:38 Pleural Fluid Anaerobic Culture - Final Anaerococcus tetradius 07/01/20 20:30 Sputum - Suctioned Gram Stain - Final 07/01/20 20:30 Sputum - Suctioned Sputum Culture - Final 06/26/20 13:55 Lung Left Lower Lobe Direct Acid Fast Bacilli Smear - Final 06/26/20 13:55 Lung Left Lower Lobe Direct Acid Fast Bacilli Smear - Final 06/26/20 13:55 Lung Left Lower Lobe Fungal Identification - Preliminary No growth to date. 06/26/20 13:55 Lung Left Lower Lobe Fungal Identification - Preliminary No growth to date. 06/24/20 20:36 Blood - Venous Blood Culture - Final No growth after 5 days. 06/24/20 20:36 Blood - Venous Blood Culture - Final No growth after 5 days. 06/24/20 15:11 Stool Stool Culture - Final Aga albicans 06/26/20 13:55 Lung Left Lower Lobe Gram Stain - Final 06/26/20 13:55 Lung Left Lower Lobe Routine Culture - Final No growth after 2 days 06/26/20 13:55 Lung Left Lower Lobe Gram Stain - Final 06/26/20 13:55 Lung Left Lower Lobe Routine Culture - Final No growth after 2 days 06/19/20 04:07 Blood - Venous Blood Culture - Final Coag negative Staphylococcus 06/19/20 04:07 Blood - Venous Blood Culture - Final No growth after 5 days. Progress Note: A&P Assessment and plan (1) Pneumothorax on left: Status: Acute Assessment and Plan: Assessment: 59-year-old lady with underlying history of COPD admitted with dyspnea with hospital course complicated by heroin abuse causing aspiration resulting in left-sided pneumonia with empyema and pneumothorax requiring ventilatory support, further complicated by C diff and acute kidney injury. Plan: Neuro: No acute issues. Cardiac: Likely underlying diastolic dysfunction. 2D echocardiogram is pending. Pulmonary: Acute hypoxic and hypercapnic respiratory failure secondary to heroin abuse resulting in aspiration pneumonia requiring ventilatory support. Status post two bronchoscopic evaluations. Continues on broad-spectrum a ntibiotics. Further complicated by empyema and pneumothorax, status post placement and removal of an left-sided chest tabs. Now with recurrent left- sided effusion. Renal: Acute kidney injury, improving. Continue IV diuresis. Endo: No acute issues. GI: No acute issues. ID: Left-sided pneumonia with an aerobics patient is. Continue Zosyn for total of at least 14 days. C diff colitis, status post Flagyl and vancomycin, now resolved. Heme/Onc: No acute issues. Psych: No acute issues. Miscellaneous: Chronic back pain, now on fentanyl patch. Prophylaxis: Lovenox Diet: Pending swallow evaluation Critical care time spent: 45 minutes (2) JOSIAH (acute kidney injury): Status: Acute (3) Pneumonia: Status: Acute (4) COPD exacerbation: Status: Acute (5) Pleural effusion: Status: Acute Time Spent With Patient Total time spent with greater than 50% in coordination of care (as documented) at patient's floor/unit and/or counseling patient:: 0 Critical Care Time 45 minutes
--- NOTE | 2020-07-07 15:00 | XR_ITS ---
EXAMINATION: XR CHEST CLINICAL INFORMATION: Dyspnea COMPARISON: Portable chest radiographs 07/07/2020, 07/06/2020, 07/05/2020 TECHNIQUE: Portable upright AP view of the chest was obtained. FINDINGS: There is left internal jugular central venous line with tip at distal superior vena cava similar to prior study. There is near complete opacification left hemithorax, some residual aeration present left apex. There is slight leftward shift of the trachea and mediastinum. Findings likely related to combination of increasing left effusion as well as atelectasis. There is no air-fluid level or pneumothorax demonstrated. There is trace right effusion. The vascularity is normal. XR/XR chest 1V IMPRESSION: 1. Near complete opacification left hemithorax with some volume loss. Findings likely related to combination of increasing left effusion and atelectasis. No visible pneumothorax or air-fluid level. 2. Trace right effusion.
[2020-07-08] VITALS (12 sets, daily range): BP systolic 128–164; BP diastolic 70–92; PULSE 83–122; RESP 18–28; TEMP 36.1–37; O2SAT 87–100
--- NOTE | 2020-07-08 | XR_ITS ---
EXAMINATION: XR CHEST CLINICAL INFORMATION: Tachypnea. COMPARISON: Chest 07/07/2020 TECHNIQUE: Frontal view of the chest was obtained. FINDINGS: The lungs are somewhat expanded with diffuse haziness in left lower lobe suggestive of pleural effusion with underlying atelectasis. There is mild haziness in the right lung base likely small pleural effusion. Heart size enlarged with increased vascularity most likely pulmonary vascular congestion. The left central venous catheters tip at the brachiocephalic venous junction. No gross bony abnormality seen. XR/XR chest 1V IMPRESSION: Moderate to large left pleural effusion and small right pleural effusion with bibasilar underlying atelectasis. There is cardiomegaly with mild CHF, new since 07/07/2020
[2020-07-08] MEDS: LORazepam 2 MG/ML VIAL 0.5 MG IVPUSH ×4 (01:44→20:30)
[2020-07-08] MEDS: Albumin Human 25 % 100 ML IV (04:42)
[2020-07-08] MEDS: Metoprolol Tartrate 5 MG/5 ML VIAL IVPUSH (05:46)
[2020-07-08 06:26] LABS: Basophils Percent Auto 0.1 % (0-2); Eosinophils Absolute Auto 0.2 X10*3/uL (0.0-0.4); Hematocrit 26.9 % (37-47); Hemoglobin 8.3 g/dl (12.0-16.0); Imm Gran Abs Auto 0.16 X10*3/uL (0.00-0.03); Imm Gran Pct Auto 0.7 % (0.0-0.4); Lymphocytes Absolute Auto 0.5 X10*3/uL (1.2-4.9); Lymphocytes Percent Auto 2.1 % (20-40); MANUAL DIFF FLAG SCAN; Mean Corpuscular HGB Conc 30.9 g/dl (31.0-35.0); Mean Corpuscular Hemoglobin 27.9 pg (27.0-33.0); Mean Corpuscular Volume 90.3 fL (80-98); Mean Platelet Volume 10.9 fL (9.4-12.3); Monocytes Percent Auto 4.5 % (2-11); Neutrophils Absolute Auto 20.8 X10*3/uL (2.0-8.3); Neutrophils Percent Auto 91.6 % (45-73); Platelet Count 236 X10*3/uL (160-400); Red Blood Count 2.98 X10*6/uL (4.20-5.50); Red Cell Distribution Width 15.7 % (11.0-16.0); SCAN SMEAR FLAG 1; White Blood Count 22.8 X10*3/uL (4.8-10.8)
[2020-07-08] MEDS: Albuterol/Iprat 2.5/0.5MG 3 ML AMPUL.NEB INHALE ×5 (07:13→23:35)
[2020-07-08 07:21] LABS: SLIDE REVIEW VERIFIED
[2020-07-08] MEDS: Nystatin Powder 15 GM BOTTLE 1 APPL TOPICAL ×2 (07:49→22:03)
[2020-07-08] MEDS: 0.9 % Sodium Chloride Flush 3 ML SYRINGE IVFLUSH ×3 (07:50→20:34)
--- NOTE | 2020-07-08 09:03 | P.PNNP_ITS ---
Subjective Subjective Date of Service: 07/08/20 Principal diagnosis: Cavitary Pneumonia Lt lower lobe . Interval history: Events noted Cr stable Transferred to floor Physical Exam Vital Signs: Vital Signs: Last Vital Signs Temp 98.1 F 07/08/20 07:27 Pulse 100 07/08/20 07:27 Resp 24 H 07/08/20 07:27 BP 149/74 H 07/08/20 07:27 Pulse Ox 93 07/08/20 07:27 Body Mass Index 22.8 Const: General: ill appearing Neck: Neck: Yes supple Resp: Auscultation: diminished lung sounds Cardio: Heart sounds: no gallops and no rubs Neuro: Motor exam (neuro): No Asterixis during motor activity present Objective Data Labs CBC & Chem 7: 07/08/20 05:12 07/07/20 04:39 Labs: Laboratory Results - last 24 hr 06/27/20 07/08/20 12:14 05:12 WBC 22.8 H RBC 2.98 L Hgb 8.3 L Hct 26.9 L MCV 90.3 MCH 27.9 MCHC 30.9 L RDW 15.7 Plt Count 236 MPV 10.9 Immature Gran % (Auto) 0.7 H Neut % (Auto) 91.6 H Lymph % (Auto) 2.1 L [place] % (Auto) 4.5 Eos % (Auto) 1.0 Baso % (Auto) 0.1 Lymph # (Auto) 0.5 L [place] # (Auto) 1.0 Eos # (Auto) 0.2 Baso # (Auto) 0.0 Abs Immat Gran (auto) 0.16 H Absolute Neuts (auto) 20.8 H Absolute Nucleated RBC 0.000 Nucleated RBC % (auto) 0.0 Smear Tech's Comments VERIFIED BCR/abl (FISH) Source Peripheral Blood BCR/abl (FISH) Result 0.000 BCR/abl (FISH) Res Sum see note BCR/abl Comment 0.000 BCR/abl Additionl Info Not Given BCR/abl1 Mnr (p190) EER Not Detected BCR/abl1 Mjr (p210) EER Not Detected Microbiology Microbiology Results: Microbiology 07/02/20 Unknown Pleural Fluid Direct Acid Fast Bacilli Smear - Final 07/02/20 01:38 Pleural Fluid Fungal Identification - Preliminary No growth to date. 06/26/20 13:55 Lung Left Lower Lobe Fungal Identification - Preliminary No growth after 1 week. 06/26/20 13:55 Lung Left Lower Lobe Fungal Identification - Preliminary No growth after 1 week. 07/03/20 14:17 Sputum - Suctioned Gram Stain - Final 07/03/20 14:17 Sputum - Suctioned Sputum Culture - Final 07/02/20 01:38 Pleural Fluid Gram Stain - Final 07/02/20 01:38 Pleural Fluid Routine Culture - Final No growth after 2 days 07/02/20 01:38 Pleural Fluid Anaerobic Culture - Final Anaerococcus tetradius 07/01/20 20:30 Sputum - Suctioned Gram Stain - Final 07/01/20 20:30 Sputum - Suctioned Sputum Culture - Final 06/26/20 13:55 Lung Left Lower Lobe Direct Acid Fast Bacilli Smear - Final 06/26/20 13:55 Lung Left Lower Lobe Direct Acid Fast Bacilli Smear - Final 06/24/20 20:36 Blood - Venous Blood Culture - Final No growth after 5 days. 06/24/20 20:36 Blood - Venous Blood Culture - Final No growth after 5 days. 06/24/20 15:11 Stool Stool Culture - Final Aga albicans 06/26/20 13:55 Lung Left Lower Lobe Gram Stain - Final 06/26/20 13:55 Lung Left Lower Lobe Routine Culture - Final No growth after 2 days 06/26/20 13:55 Lung Left Lower Lobe Gram Stain - Final 06/26/20 13:55 Lung Left Lower Lobe Routine Culture - Final No growth after 2 days 06/19/20 04:07 Blood - Venous Blood Culture - Final Coag negative Staphylococcus 06/19/20 04:07 Blood - Venous Blood Culture - Final No growth after 5 days. Assessment & Plan Assessment and plan (1) JOSIAH (acute kidney injury): Problem details: JOSIAH Resolved Hypernatremia - due to free water deficit Improving Keep I > O with hypotonic fluids /free water Shall follow PRN Status: Acute Time Spent With Patient Time: Total time spent is greater than 50% in coordination of care (as document ed) at patient's floor/unit and/or counseling patient:
[2020-07-08] MEDS: Enoxaparin Sodium 40 MG/0.4 ML SYRINGE SUBCUT (10:08)
--- NOTE | 2020-07-08 11:05 | P.PNIM_ITS ---
Subjective Subjective Date of Service: 07/08/20 Interval History: Seen in f/u for respiraoty failure d/t cavitaty pneumonia and has required ICU level of care with mechanical ventilation and intubation. Review of Systems Gen: no fever Resp: sob CV: no edemia, no chest pain GI: No n/v, no abd pain Neuro: No confusion, anxious Physical Exam Vital Signs: Vital Signs: Last Vital Signs Temp 98.1 F 07/08/20 07:27 Pulse 100 07/08/20 07:27 Resp 24 H 07/08/20 07:27 BP 149/74 H 07/08/20 07:27 Pulse Ox 93 07/08/20 07:27 Body Mass Index 22.8 Const: Other: General: anxious Resp:rhonchi bilateral CVS: S1,S2,RRR GI: +BS, NT, no distention Skin: No rash Neuro: motor grossly intact Psych: appropriate affect Objective Data Current Medications Generic Name Dose Route Start Last Admin Trade Name Freq PRN Reason Stop Dose Admin Acetaminophen 650 mg 06/19/20 11:55 06/30/20 19:59 Acetaminophen 325 Mg Tablet PO 650 mg Q6H PRN Administration Pain, Mild (Pain Scale 1-3) Albuterol/Ipratropium 3 ml 07/04/20 20:00 07/08/20 11:02 Albuterol/Iprat 2.5/0.5mg 3 Ml Ampul.Neb INHALE 3 ml RQ4H GURWINDER Administration Docusate Sodium 100 mg 06/19/20 11:55 Docusate Sodium 100 Mg Capsule PO DAILY PRN Constipation Enoxaparin Sodium 40 mg 06/19/20 11:55 07/08/20 10:08 Enoxaparin Sodium 40 Mg/0.4 Ml Syringe SUBCUT 40 mg Q24H GURWINDER Administration Fentanyl 25 mcg 07/07/20 10:15 07/07/20 11:17 Fentanyl 25 Mcg Patch.Td72 TRANSDERMA 25 mcg Q72H GURWINDER Administration Piperacillin Sod/Tazobactam 50 mls @ 100 mls/hr 07/05/20 11:00 07/08/20 10:53 Sod 4.5 gm/ Sodium Chloride IV Infused Q6H GURWINDER Infusion Lorazepam 0.5 mg 07/07/20 13:47 07/08/20 10:09 Lorazepam 2 Mg/Ml Vial IVPUSH 0.5 mg Q4H PRN Administration Anxiety Naloxone HCl 0.2 mg 07/01/20 13:55 07/01/20 12:52 Naloxone Hcl 0.4 Mg/Ml Vial IV 0.2 mg Q5M PRN Administration Sedation Nystatin 1 appl 07/01/20 23:45 07/08/20 07:49 Nystatin Powder 15 Gm Bottle TOPICAL 1 appl BID GURWINDER Administration Protocol Sodium Chloride 3 ml 06/19/20 11:55 07/08/20 07:50 0.9 % Sodium Chloride Flush 3 Ml Syringe IVFLUSH 3 ml QSHIFT GURWINDER Administration Labs CBC & Chem 7: 07/08/20 05:12 07/07/20 04:39 Microbiology Microbiology Results: Microbiology 07/02/20 Unknown Pleural Fluid Direct Acid Fast Bacilli Smear - Final 07/02/20 01:38 Pleural Fluid Fungal Identification - Preliminary No growth to date. 06/26/20 13:55 Lung Left Lower Lobe Fungal Identification - Preliminary No growth after 1 week. 06/26/20 13:55 Lung Left Lower Lobe Fungal Identification - Preliminary No growth after 1 week. 07/03/20 14:17 Sputum - Suctioned Gram Stain - Final 07/03/20 14:17 Sputum - Suctioned Sputum Culture - Final 07/02/20 01:38 Pleural Fluid Gram Stain - Final 07/02/20 01:38 Pleural Fluid Routine Culture - Final No growth after 2 days 07/02/20 01:38 Pleural Fluid Anaerobic Culture - Final Anaerococcus tetradius 07/01/20 20:30 Sputum - Suctioned Gram Stain - Final 07/01/20 20:30 Sputum - Suctioned Sputum Culture - Final 06/26/20 13:55 Lung Left Lower Lobe Direct Acid Fast Bacilli Smear - Final 06/26/20 13:55 Lung Left Lower Lobe Direct Acid Fast Bacilli Smear - Final 06/24/20 20:36 Blood - Venous Blood Culture - Final No growth after 5 days. 06/24/20 20:36 Blood - Venous Blood Culture - Final No growth after 5 days. 06/24/20 15:11 Stool Stool Culture - Final Aga albicans 06/26/20 13:55 Lung Left Lower Lobe Gram Stain - Final 06/26/20 13:55 Lung Left Lower Lobe Routine Culture - Final No growth after 2 days 06/26/20 13:55 Lung Left Lower Lobe Gram Stain - Final 06/26/20 13:55 Lung Left Lower Lobe Routine Culture - Final No growth after 2 days 06/19/20 04:07 Blood - Venous Blood Culture - Final Coag negative Staphylococcus 06/19/20 04:07 Blood - Venous Blood Culture - Final No growth after 5 days. Assessment and Plan (1) JOSIAH (acute kidney injury): Problem details: JOSIAH Resolved Hypernatremia - due to free water deficit Improving Keep I > O with hypotonic fluids /free water Shall follow PRN Status: Acute Assessment and Plan: 59-year-old lady with underlying history of COPD, back pain admitted on 06/19/2020 with progressive dyspnea and deemed to be secondary to COPD exacerbation and treated for such. Hospital course complicated by acute heroin intoxication resulting in aspiration cavitary pneumonia further complicated by left-sided empyema and pneumothorax, requiring ventilatory support on 07/01, status post 2 bronchoscopies, successfully extubated on 07/06/2020, also has been treated for cdif. Patient continues on broad-spectrum antibiotic coverage for anaerobic lung infection. # Sepsis due to cavitary pneumonia s/p bronch on 06/26 and 07/01 and subsequently transfered to ICU for [facility] ventilation -She received Levaquin x 1 on 06/19 in ED -she was on Ceftriaxone and Azithromycin for CAP from 06/19 to 06/24 -on 06/24, she was started on Vacomycin, Flagyl and Zosyn -Vanco discontinue d/t toxic level and renal failure -Presently still on IV Zosyn and ID had recommened 3 weeks of treatment # COPD / asthma exacerbation--has completed 10 days of steroid,continue bronchodilators and oxygen as needed # JOSIAH--likely from vancomycin toxicity. Has fully resolved. 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 Has completed PO Vanco # hyponatremia 129 on 06/19--likely from SSRI. Level has been normal since. #HypeRnatremia--lack of water--encourage oral water and if not improving, IV water. Nephro following # Leukocytosis--she presented on 06/19 with WBC of 45 went irvin to 28 by 06/24, then went back up to 71 on 06/27. This is likely leukomoid reaction from many source including pulmonary infection, steroid and C dif. level is now trending down again at 36.3 today. She was seen by Dr. Starr with some ongoing work up to rule CML. WBC has come down, presently 22 # Anxiety - continue p.r.n. Xanax hold for sedation # Back pain-- continue Oxycodone. (2) Pleural effusion: Status: Acute (3) Cavitary pneumonia: Problem details: CONTINUE THE CURRENT ANTIBIOTICS . Status: Acute (4) Hyponatremia: Problem details: REsolved Status: Acute (5) Anxiety: Status: Acute (6) COPD exacerbation: Status: Acute (7) Hydropneumothorax: Status: Acute
--- NOTE | 2020-07-08 14:00 | CA_ITS ---
Transthoracic Echocardiogram Patient (Last, First, Middle): Jessica Pollard, Gender: Female Date of : 1960 Age: 59 Procedure Date: 07/08/2020 Procedure Type: Transthoracic Echocardiogram Location: [facility] [place] Height: 157.48 cm Weight: 56.7 kg BSA: 1.57 m2 Heart Rate: bpm BP: 138 / 67 mmHg Clip Riveter: DOUGLAS Referring MD: Yogi Christiansen MD Symptoms: maria Conclusions: - Normal left ventricular cavity size. There is mildly increased left ventricular wall thickness. The left ventricular systolic function is hyperdynamic. The visually estimated ejection fraction is >70%. - E/E prime ratio is between 8 and 15 consistent with indeterminate filling pressures. - There is mild mitral annular calcification. There is moderate to severe mitral valve regurgitation. There is no mitral valve stenosis. Etiology of mitral regurgitation is unclear. The jet is posteriorly directed. - Moderately elevated right atrial pressure. Moderate pulmonary hypertension is present. - There is mild dilatation of the ascending aorta. - The inferior vena cava is normal in size and collapses less than 50% with inspiration. Findings Left Ventricle Normal left ventricular cavity size. There is mildly increased left ventricular wall thickness. The left ventricular systolic function is hyperdynamic. The visually estimated ejection fraction is >70%. There is no evidence of regional wall motion abnormalities. Diastolic function is indeterminate on the basis of available data. E/E prime ratio is between 8 and 15 consistent with indeterminate filling pressures. Right Ventricle Normal right ventricular cavity size and systolic function. Atria Both atria are normal in size. Aortic Valve There is a normal trileaflet aortic valve. There is no aortic valve stenosis. There is no aortic valve regurgitation. Mitral Valve There is mild mitral annular calcification. There is moderate to severe mitral valve regurgitation. There is no mitral valve stenosis. Etiology of mitral regurgitation is unclear. The jet is posteriorly directed. Pulmonic Valve The pulmonic valve is likely normal. Tricuspid Valve Normal tricuspid valve structure and function. There is mild tricuspid valve regurgitation. Moderately elevated right atrial pressure. Moderate pulmonary hypertension is present. Great Vessels There is mild dilatation of the ascending aorta. The visualized portions of the pulmonary artery and branches are normal. Venous The inferior vena cava is normal in size and collapses less than 50% with inspiration. Pericardium/Pleural There is no evidence of pericardial effusion. Prior Study Comparison Changes noted compared to prior study dated: 05/05/2016. LV function is hyperdynamic. Moderate to severe MR present. Moderate pulmonary hypertension present. Measurements 2D Linear Measurements IVSd: 1.00 0.6-0.9/0.6-1.0 cm LVIDd: 4.48 3.9-5.3/4.2-5.9 cm LVIDd Index: 2.85 2.4-3.2/2.2-3.1 cm/m2 LVIDs: 3.10 2.0-3.6 cm LVPWd: 1.07 0.7-1.1 cm Ao Root: 2.70 2.1-3.5 cm LA Diam: 2.90 2.7-3.8/3.0-4.0 cm LAIDs Index: 1.85 1.5-2.3 cm/m2 LV Mass: 198.61 67-162/88-224 g LV Mass Index: 126.50 43-95/49-115 g/m2 LVOT Diam: 2.10 3.0+(-)1.3 cm 2D Systolic Function EF 4C: 61.80 >55% Mitral Valve MV Pk E: 1.11 MV PK A: 1.05 MV Decel Time: 88.00 E/A: 1.10 E'Lateral: 13.80 E'Medial: 9.48 E/E' Med: 11.70 E/E' Lat: 8.00 PHT: 26.00 MVA PHT: 8.46 Decel Pershing: 13.26 MR VTI: 2.05 Aortic Valve AoV Pk Luis: 1.64 AoV Pk Grad: 11.00 LVOT LVOT Pk Luis: 1.34 LVOT Mn Luis: 0.71 LVOT VTI: 0.19 LVOT Pk Grad: 7.00 LVOT Mn Grad: 3.00 LVOT Diam: 2.10 LVOT Area: 3.46 Diastolic Function MV Pk E: 1.11 MV Pk A: 1.05 E/A: 1.10 E'Medial: 9.48 E/E' Med: 11.70 E' Laterial: 13.80 E/E' Lat: 8.00 Tricuspid Valve TR Pk Luis: 3.07 TR Pk Grad: 38.00 RA Press: 15.00 RVSP: 53.00 Great Vessels Aorta Ao Root-2D: 2.70 2.0-3.7 cm Ao Asc: 3.40 2.1-3.4 cm Updated in Other Vendor System with Status of Final Naveen Grant MD electronically signed on 07/08/2020 9:23:07 PM with status of Final
[2020-07-08 14:20] LABS: Pt Ventilation O2% 3 L
[2020-07-08 14:29] LABS: pH ABG 7.27 (7.35-7.45)
[2020-07-08 14:30] LABS: Base Excess ABG 1.6; HCO3 ABG 29 mmol/l (22-26); Oxygen Saturation ABG 95.7 %; PO2 ABG 88 mmhg (83-108)
[2020-07-08 14:34] LABS: Anion Gap 11 (12-20); Blood Urea Nitrogen 10 mg/dL (9-16); Calcium 7.6 mg/dL (8.4-10.2); Carbon Dioxide 32 mmol/L (22-29); Chloride 113 mmol/L (96-108); Creatinine Clr Calc Pharmacy 74.4; Estimated Glomerular Filt Rate > 60; Glucose Random 123 mg/dL (60-115); Potassium 3.7 mmol/l (3.3-5.1); Sodium 152 mmol/L (135-145)
[2020-07-08 14:36] LABS: ABG PCO2 66 mmhg (32-45)
[2020-07-08 15:21] LABS: Amphetamine Screen Urine Not Detected (Not Detect); Barbiturates, Urine Not Detected (Not Detect); Benzodiazepines Screen Urine POSITIVE (Not Detect); Cannabinoid Screen Urine Not Detected (Not Detect); Cocaine Screen Urine Not Detected (Not Detect); Opiate Screen Urine Not Detected (Not Detect); Phencyclidine Screen Urine Not Detected (Not Detect)
[2020-07-08] MEDS: Furosemide 40 MG/4 ML VIAL IVPUSH ×2 (15:57→17:40)
[2020-07-08 17:03] LABS: Pt Ventilation O2% 2 L
[2020-07-08 17:07] LABS: PO2 ABG 70 mmhg (83-108); pH ABG 7.32 (7.35-7.45)
[2020-07-08 17:08] LABS: HCO3 ABG 31 mmol/l (22-26); Oxygen Saturation ABG 93.5 %
[2020-07-08 17:21] LABS: ABG PCO2 62 mmhg (32-45)
--- NOTE | 2020-07-08 17:33 | PM.EVENT ---
Event Note Date of Service: 07/08/20 Event Note: Cross Cover Note Called by RN to come see patient as she was complaining of difficulty breathing. Pt seen bedside, in respiratory distress but able to speak. Lung sounds corase. Stat ABG + CXR ordered and reviewed with intensive care. IV lasix ordered with good urine output and improvement in patients respiratory status. Repeat ABG done, also improved and rediscussed with ICU. Seen by ICU several times as well and given improvement in blood gas with diuresis -- recommends to continue lasix and stable for the floor for the time being.
--- NOTE | 2020-07-08 20:24 | ECG_ITS ---
Test Reason : CP Blood Pressure : / mmHG Vent. Rate : 102 BPM Atrial Rate : 204 BPM P-R Int : 000 ms QRS Dur : 076 ms QT Int : 334 ms P-R-T Axes : 064 037 059 degrees QTc Int : 435 ms Artifact in tracing Normal sinus rhythm Low voltage QRS Nonspecific ST and T wave abnormality Abnormal ECG When compared to the previous EKG of 05 jul 2020, non specific ST T changes slightly more prominent Referred By: Miguel Gallegos Electronically Signed By:DAVID OSWALD
[2020-07-09] VITALS (11 sets, daily range): BP systolic 138–174; BP diastolic 72–99; PULSE 85–108; RESP 16–24; TEMP 36.4–37; O2SAT 84–98
[2020-07-09] MEDS: LORazepam 2 MG/ML VIAL 0.5 MG IVPUSH ×4 (00:30→21:07)
[2020-07-09] MEDS: Albuterol/Iprat 2.5/0.5MG 3 ML AMPUL.NEB INHALE ×6 (06:20→23:49)
[2020-07-09 07:15] LABS: Base Excess VBG 6.2 mmol/L; HCO3 VBG 31 mmol/L; Oxygen Saturation VBG 89.2 %; PCO2 VBG 47 mmhg; PO2 VBG 50 mmhg; pH VBG 7.44 (7.32-7.43)
[2020-07-09 07:16] LABS: Blood Gas Serial # 5396
[2020-07-09 07:18] LABS: Hematocrit 28.8 % (37-47); Mean Corpuscular HGB Conc 31.3 g/dl (31.0-35.0); Mean Corpuscular Hemoglobin 28.6 pg (27.0-33.0); Mean Corpuscular Volume 91.4 fL (80-98); Mean Platelet Volume 11.2 fL (9.4-12.3); Platelet Count 228 X10*3/uL (160-400); Red Blood Count 3.15 X10*6/uL (4.20-5.50); Red Cell Distribution Width 16.1 % (11.0-16.0); White Blood Count 24.1 X10*3/uL (4.8-10.8)
[2020-07-09 07:44] LABS: Anion Gap 14 (12-20); Blood Urea Nitrogen 11 mg/dL (9-16); Calcium 7.9 mg/dL (8.4-10.2); Carbon Dioxide 32 mmol/L (22-29); Chloride 106 mmol/L (96-108); Creatinine Clr Calc Pharmacy 74.4; Estimated Glomerular Filt Rate > 60; Glucose Random 99 mg/dL (60-115); Potassium 3.3 mmol/l (3.3-5.1); Sodium 149 mmol/L (135-145)
--- NOTE | 2020-07-09 08:41 | HO.PM.IMPN ---
Subjective Subjective Date of Service: 07/09/20 Interval History: Seen in f/u for respiraoty failure d/t cavitaty pneumonia and has required ICU level of care with mechanical ventilation and intubation. She had an epsisode of anxiety periods yesterday with resp distress but seem much better this morning and she states that she's better Review of Systems Gen: no fever Resp: sob CV: no edemia, no chest pain GI: No n/v, no abd pain Neuro: No confusion, anxious Physical Exam Vital Signs: Vital Signs: Last Vital Signs Temp 97.6 F 07/09/20 07:09 Pulse 102 H 07/09/20 07:27 Resp 22 H 07/09/20 07:09 BP 169/98 H 07/09/20 07:09 Pulse Ox 90 L 07/09/20 07:09 Body Mass Index 22.8 Const: Other: General: anxious Resp:rhonchi bilateral CVS: S1,S2,RRR GI: +BS, NT, no distention Skin: No rash Neuro: motor grossly intact Psych: appropriate affect Objective Data Current Medications Generic Name Dose Route Start Last Admin Trade Name Freq PRN Reason Stop Dose Admin Acetaminophen 650 mg 06/19/20 11:55 06/30/20 19:59 Acetaminophen 325 Mg Tablet PO 650 mg Q6H PRN Administration Pain, Mild (Pain Scale 1-3) Albuterol/Ipratropium 3 ml 07/04/20 20:00 07/09/20 07:23 Albuterol/Iprat 2.5/0.5mg 3 Ml Ampul.Neb INHALE 3 ml RQ4H GURWINDER Administration Docusate Sodium 100 mg 06/19/20 11:55 Docusate Sodium 100 Mg Capsule PO DAILY PRN Constipation Enoxaparin Sodium 40 mg 06/19/20 11:55 07/08/20 10:08 Enoxaparin Sodium 40 Mg/0.4 Ml Syringe SUBCUT 40 mg Q24H GURWINDER Administration Fentanyl 25 mcg 07/07/20 10:15 07/07/20 11:17 Fentanyl 25 Mcg Patch.Td72 TRANSDERMA 25 mcg Q72H GURWINDER Administration Piperacillin Sod/Tazobactam 50 mls @ 100 mls/hr 07/05/20 11:00 07/09/20 05:45 Sod 4.5 gm/ Sodium Chloride IV Infused Q6H GURWINDER Infusion Lorazepam 0.5 mg 12/14/20 13:47 07/09/20 05:30 Lorazepam 2 Mg/Ml Vial IVPUSH 0.5 mg Q4H PRN Administration Anxiety Naloxone HCl 0.2 mg 07/01/20 13:55 07/01/20 12:52 Naloxone Hcl 0.4 Mg/Ml Vial IV 0.2 mg Q5M PRN Administration Sedation Nystatin 1 appl 07/01/20 23:45 07/08/20 22:03 Nystatin Powder 15 Gm Bottle TOPICAL 1 appl BID GURWINDER Administration Protocol Sodium Chloride 3 ml 06/19/20 11:55 07/08/20 20:34 0.9 % Sodium Chloride Flush 3 Ml Syringe IVFLUSH 3 ml QSHIFT GURWINDER Administration Labs CBC & Chem 7: 07/09/20 07:03 07/09/20 07:03 Microbiology Microbiology Results: Microbiology 07/02/20 Unknown Pleural Fluid Direct Acid Fast Bacilli Smear - Final 07/02/20 01:38 Pleural Fluid Fungal Identification - Preliminary No growth to date. 06/26/20 13:55 Lung Left Lower Lobe Fungal Identification - Preliminary No growth after 1 week. 06/26/20 13:55 Lung Left Lower Lobe Fungal Identification - Preliminary No growth after 1 week. 07/03/20 14:17 Sputum - Suctioned Gram Stain - Final 07/03/20 14:17 Sputum - Suctioned Sputum Culture - Final 07/02/20 01:38 Pleural Fluid Gram Stain - Final 07/02/20 01:38 Pleural Fluid Routine Culture - Final No growth after 2 days 07/02/20 01:38 Pleural Fluid Anaerobic Culture - Final Anaerococcus tetradius 07/01/20 20:30 Sputum - Suctioned Gram Stain - Final 07/01/20 20:30 Sputum - Suctioned Sputum Culture - Final 06/26/20 13:55 Lung Left Lower Lobe Direct Acid Fast Bacilli Smear - Final 06/26/20 13:55 Lung Left Lower Lobe Direct Acid Fast Bacilli Smear - Final 06/24/20 20:36 Blood - Venous Blood Culture - Final No growth after 5 days. 06/24/20 20:36 Blood - Venous Blood Culture - Final No growth after 5 days. 06/24/20 15:11 Stool Stool Culture - Final Aga albicans 06/26/20 13:55 Lung Left Lower Lobe Gram Stain - Final 06/26/20 13:55 Lung Left Lower Lobe Routine Culture - Final No growth after 2 days 06/26/20 13:55 Lung Left Lower Lobe Gram Stain - Final 06/26/20 13:55 Lung Left Lower Lobe Routine Culture - Final No growth after 2 days 06/19/20 04:07 Blood - Venous Blood Culture - Final Coag negative Staphylococcus 06/19/20 04:07 Blood - Venous Blood Culture - Final No growth after 5 days. Assessment and Plan (1) JOSIAH (acute kidney injury): Problem details: JOSIAH Resolved Hypernatremia - due to free water deficit Improving Keep I > O with hypotonic fluids /free water Shall follow PRN Status: Acute (2) Pleural effusion: Status: Acute (3) Cavitary pneumonia: Problem details: CONTINUE THE CURRENT ANTIBIOTICS . Status: Acute (4) Hyponatremia: Problem details: REsolved Status: Acute (5) Anxiety: Status: Acute (6) COPD exacerbation: Status: Acute (7) Hydropneumothorax: Status: Acute Assessment and Plan: 59-year-old lady with underlying history of COPD, back pain admitted on 06/19/2020 with progressive dyspnea and deemed to be secondary to COPD exacerbation and treated for such. Hospital course complicated by acute heroin intoxication resulting in aspiration cavitary pneumonia further complicated by left-sided empyema and pneumothorax, requiring ventilatory support on 07/01, status post 2 bronchoscopies, successfully extubated on 07/06/2020, also has been treated for cdif. Patient continues on broad-spectrum antibiotic coverage for anaerobic lung infection. # Sepsis due to cavitary pneumonia s/p bronch on 06/26 and 07/01 and subsequently transfered to ICU for [facility] ventilation -She received Levaquin x 1 on 06/19 in ED -she was on Ceftriaxone and Azithromycin for CAP from 06/19 to 06/24 -on 06/24, she was started on Vacomycin, Flagyl and Zosyn -Vanco discontinue d/t toxic level and renal failure -Presently still on IV Zosyn and ID had recommened 3 weeks of treatment # COPD / asthma exacerbation--has completed 10 days of steroid,continue bronchodilators and oxygen as needed # JOSIAH--likely from vancomycin toxicity. Has fully resolved. 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 Has completed PO Vanco # hyponatremia 129 on 06/19--likely from SSRI. Level has been normal since. #HypeRnatremia--lack of water--encourage oral water and if not improving, IV water. Nephro following # Leukocytosis--she presented on 06/19 with WBC of 45 went irvin to 28 by 06/24, then went back up to 71 on 06/27. This is likely leukomoid reaction from many source including pulmonary infection, steroid and C dif. level is now trending down again at 24.3 today. She was seen by Dr. Starr with some ongoing work up to rule CML. # Anxiety - continue p.r.n. ativan # Back pain-- Fentanyl PT eval
[2020-07-09] MEDS: 0.9 % Sodium Chloride Flush 3 ML SYRINGE IVFLUSH ×3 (10:33→21:07)
[2020-07-09] MEDS: Nystatin Powder 15 GM BOTTLE 1 APPL TOPICAL ×2 (10:33→21:07)
[2020-07-09] MEDS: Enoxaparin Sodium 40 MG/0.4 ML SYRINGE SUBCUT (10:37)
--- NOTE | 2020-07-09 10:48 | P.PNNP_ITS ---
Subjective Subjective Date of Service: 07/09/20 Principal diagnosis: Cavitary Pneumonia Lt lower lobe . Interval history: Events noted Na trending down Physical Exam Vital Signs: Vital Signs: Last Vital Signs Temp 97.6 F 07/09/20 07:09 Pulse 102 H 07/09/20 07:27 Resp 22 H 07/09/20 07:09 BP 169/98 H 07/09/20 07:09 Pulse Ox 90 L 07/09/20 07:09 Body Mass Index 22.8 Const: General: ill appearing Neck: Neck: Yes supple Resp: Auscultation: diminished lung sounds Cardio: Heart sounds: no gallops and no rubs Neuro: Motor exam (neuro): No Asterixis during motor activity present Objective Data Labs CBC & Chem 7: 07/09/20 07:03 07/09/20 07:03 Labs: Laboratory Results - last 24 hr 07/04/20 07/08/20 07/08/20 07:42 14:00 14:10 WBC RBC Hgb Hct MCV MCH MCHC RDW Plt Count MPV Absolute Nucleated RBC Nucleated RBC % (auto) ABG pH 7.27 L ABG pCO2 66 H* ABG pO2 88 ABG HCO3 29 H ABG O2 Saturation 95.7 ABG Base Excess 1.6 VBG pH VBG pCO2 VBG pO2 VBG HCO3 VBG O2 Saturation VBG Base Excess Oxygen Given 3 L Sodium 152 H Potassium 3.7 Chloride 113 H Carbon Dioxide 32 H Anion Gap 11 L BUN 10 Creatinine 0.66 Estim Creat Clear Calc 74.4 Estimated GFR > 60 Random Glucose 123 H D Calcium 7.6 L D Urine Opiates Screen Ur Barbiturates Screen Ur Phencyclidine Scrn Ur Amphetamines Screen U Benzodiazepines Scrn Urine Cocaine Screen U Marijuana (THC) Screen Crossmatch See Detail 07/08/20 07/08/20 07/09/20 14:43 16:55 07:03 WBC 24.1 H RBC 3.15 L Hgb 9.0 L Hct 28.8 L MCV 91.4 MCH 28.6 MCHC 31.3 RDW 16.1 H Plt Count 228 MPV 11.2 Absolute Nucleated RBC 0.000 Nucleated RBC % (auto) 0.0 ABG pH 7.32 L ABG pCO2 62 H* ABG pO2 70 L ABG HCO3 31 H ABG O2 Saturation 93.5 ABG Base Excess 4.0 VBG pH VBG pCO2 VBG pO2 VBG HCO3 VBG O2 Saturation VBG Base Excess Oxygen Given 2 L Sodium Potassium Chloride Carbon Dioxide Anion Gap BUN Creatinine Estim Creat Clear Calc Estimated GFR Random Glucose Calcium Urine Opiates Screen Not Detected Ur Barbiturates Screen Not Detected Ur Phencyclidine Scrn Not Detected Ur Amphetamines Screen Not Detected U Benzodiazepines Scrn POSITIVE H Urine Cocaine Screen Not Detected U Marijuana (THC) Screen Not Detected Crossmatch 07/09/20 07/09/20 07:03 07:03 WBC RBC Hgb Hct MCV MCH MCHC RDW Plt Count MPV Absolute Nucleated RBC Nucleated RBC % (auto) ABG pH ABG pCO2 ABG pO2 ABG HCO3 ABG O2 Saturation ABG Base Excess VBG pH 7.44 H VBG pCO2 47 VBG pO2 50 VBG HCO3 31 VBG O2 Saturation 89.2 VBG Base Excess 6.2 Oxygen Given Sodium 149 H Potassium 3.3 Chloride 106 Carbon Dioxide 32 H Anion Gap 14 BUN 11 Creatinine 0.66 Estim Creat Clear Calc 74.4 Estimated GFR > 60 Random Glucose 99 Calcium 7.9 L Urine Opiates Screen Ur Barbiturates Screen Ur Phencyclidine Scrn Ur Amphetamines Screen U Benzodiazepines Scrn Urine Cocaine Screen U Marijuana (THC) Screen Crossmatch Microbiology Microbiology Results: Microbiology 07/02/20 Unknown Pleural Fluid Direct Acid Fast Bacilli Smear - Final 07/02/20 01:38 Pleural Fluid Fungal Identification - Preliminary No growth to date. 06/26/20 13:55 Lung Left Lower Lobe Fungal Identification - Preliminary No growth after 1 week. 06/26/20 13:55 Lung Left Lower Lobe Fungal Identification - Preliminary No growth after 1 week. 07/03/20 14:17 Sputum - Suctioned Gram Stain - Final 07/03/20 14:17 Sputum - Suctioned Sputum Culture - Final 07/02/20 01:38 Pleural Fluid Gram Stain - Final 07/02/20 01:38 Pleural Fluid Routine Culture - Final No growth after 2 days 07/02/20 01:38 Pleural Fluid Anaerobic Culture - Final Anaerococcus tetradius 07/01/20 20:30 Sputum - Suctioned Gram Stain - Final 07/01/20 20:30 Sputum - Suctioned Sputum Culture - Final 06/26/20 13:55 Lung Left Lower Lobe Direct Acid Fast Bacilli Smear - Final 06/26/20 13:55 Lung Left Lower Lobe Direct Acid Fast Bacilli Smear - Final 06/24/20 20:36 Blood - Venous Blood Culture - Final No growth after 5 days. 06/24/20 20:36 Blood - Venous Blood Culture - Final No growth after 5 days. 06/24/20 15:11 Stool Stool Culture - Final Aga albicans 06/26/20 13:55 Lung Left Lower Lobe Gram Stain - Final 06/26/20 13:55 Lung Left Lower Lobe Routine Culture - Final No growth after 2 days 06/26/20 13:55 Lung Left Lower Lobe Gram Stain - Final 06/26/20 13:55 Lung Left Lower Lobe Routine Culture - Final No growth after 2 days 06/19/20 04:07 Blood - Venous Blood Culture - Final Coag negative Staphylococcus 06/19/20 04:07 Blood - Venous Blood Culture - Final No growth after 5 days. Assessment & Plan Assessment and plan (1) JOSIAH (acute kidney injury): Problem details: JOSIAH Resolved Hypernatremia - due to free water deficit Improving Keep I > O with hypotonic fluids /free water Shall follow PRN Status: Acute Time Spent With Patient Time: Total time spent is greater than 50% in coordination of care (as do cumented) at patient's floor/unit and/or counseling patient:
--- NOTE | 2020-07-09 11:15 | MHC.CLN ---
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
--- NOTE | 2020-07-09 15:06 | MHC.CM.PN ---
pt well need physical therapy eval cm will continue to follow to access fro dc needs
--- NOTE | 2020-07-09 19:33 | PC.NURSE ---
pt buttocks red/pink- top layer of skin started to peel, not blanchable at this time. pt already had stage I pictures on chart. RN updated pictures today, awaiting staging w/RN supervisor powdered metal. applied barrier cream, has air loss mattress ( using paper pad x1) repo q2. continue w.plan
[2020-07-09] MEDS: Furosemide 40 MG/4 ML VIAL IVPUSH (22:49)
[2020-07-10] VITALS (17 sets, daily range): BP systolic 127–180; BP diastolic 67–84; PULSE 80–102; RESP 18–22; TEMP 36.3–36.9; O2SAT 92–97
--- NOTE | 2020-07-10 | XR_ITS ---
EXAMINATION: XR CHEST CLINICAL INFORMATION: Shortness of breath. COMPARISON: 07/08/2020 and 07/07/2020 portable chest. TECHNIQUE: Frontal view of the chest was obtained. FINDINGS: Support devices: Left-sided internal jugular catheter with tip terminating in the superior vena cava. There is a moderate-sized left pleural effusion without significant change. Superjacent and left perihilar markings have are again seen as well. Mild opacification of the right lung base is unchanged. The heart and mediastinal structures are unremarkable. XR/XR chest 1V IMPRESSION: 1. Moderate left pleural effusion and superjacent markings appear similar if not minimally increased. 2. Very small right pleural effusion without significant change.
--- NOTE | 2020-07-10 | CT_ITS ---
EXAMINATION: CT CHEST WITHOUT CONTRAST CLINICAL INFORMATION: Respiratory failure. COMPARISON: None. TECHNIQUE: Multidetector volumetric CT imaging of the chest was done. Axial MIP volume rendering provided. Sagittal and coronal reformatted images were obtained. This CT examination was performed using dose optimization techniques as appropriate, variously including the following: *Automated exposure control *Adjustment of mA and/or kV according to patient size (this includes techniques or standardized protocols for targeted exams where dose is matched to indication/reason for exam; i.e. extremities or head) *Use of iterative reconstruction technique DLP: 301 mGy-cm. FINDINGS: BOLT THREADER: There is moderate left pleural effusion. LUNGS: There is compressive consolidation left lower lobe. There is patchy atelectatic changes in the lingula and right middle lobe. The rest of lungs are clear. MEDIASTINUM: Heart size and the great vessels are normal caliber. A left-sided central catheter is noted in the mid SVC. No pericardial effusion seen. There is no mediastinal mass or abnormal lymph node. Central trachea and the main bronchi widely patent. There is mild occlusion of posterior segmental left bronchial branch from underlying consolidation/atelectasis and effusion. PLEURA: There is [id number] left pleural effusion and small right pleural effusion. AXILLA: No lymphadenopathy. UPPER ABDOMEN: Visualized liver, spleen, pancreas and bilateral adrenal glands are unremarkable. The gallbladder has been surgically removed. OSSEOUS STRUCTURES: There is no lytic or sclerotic process seen. Mild ventral spondylosis. CT/CT chest wo con IMPRESSION: [id number] left pleural effusion with underlying left lower lobe consolidation/atelectasis. There is small right pleural effusion. Mild atelectatic changes seen in the left upper lobe, lingula and right middle lobe.
--- NOTE | 2020-07-10 03:10 | PC.NURSE ---
Patient's oxygen titrated up to 3L prior to midnight breathing treatment in order to maintain oxygen goal. On 3L pt sats 88-90. After breathing treatment sats high 90's, oxygen titrated off as patient able to maintain oxygen 88-94%. Will continue to monitor.
[2020-07-10] MEDS: LORazepam 2 MG/ML VIAL 0.5 MG IVPUSH ×5 (03:48→20:04)
[2020-07-10] MEDS: Albuterol/Iprat 2.5/0.5MG 3 ML AMPUL.NEB INHALE ×5 (03:53→20:24)
[2020-07-10] MEDS: Metoprolol Tartrate 5 MG/5 ML VIAL IVPUSH (06:14)
[2020-07-10] MEDS: 0.9 % Sodium Chloride Flush 3 ML SYRINGE IVFLUSH ×3 (07:41→22:20)
[2020-07-10] MEDS: Furosemide 40 MG/4 ML VIAL IVPUSH ×2 (08:58→22:20)
[2020-07-10] MEDS: Nystatin Powder 15 GM BOTTLE 1 APPL TOPICAL ×2 (08:58→22:25)
[2020-07-10] MEDS: fentaNYL 25 MCG PATCH.TD72 TRANSDERMA (10:22)
[2020-07-10] MEDS: Enoxaparin Sodium 40 MG/0.4 ML SYRINGE SUBCUT (12:22)
[2020-07-10] MEDS: Furosemide 20 MG/2 ML VIAL IVPUSH (12:29)
[2020-07-10 12:47] LABS: Pt Ventilation O2% 1 L
[2020-07-10 12:54] LABS: ABG PCO2 47 mmhg (32-45); PO2 ABG 61 mmhg (83-108)
[2020-07-10] MEDS: Morphine Sulfate 2 MG/ML CARTRIDGE IVPUSH (12:54)
[2020-07-10 12:55] LABS: Base Excess ABG 11.3; Blood Gas Serial # 5414; HCO3 ABG 36 mmol/l (22-26); Oxygen Saturation ABG 92.9 %
--- NOTE | 2020-07-10 15:18 | HO.PM.IMPN ---
Subjective Subjective Date of Service: 07/10/20 Interval History: Seen in f/u for respiraoty failure d/t cavitaty pneumonia and has required ICU level of care with mechanical ventilation and intubation. She seems very anxious today. Given additional ativan and morphine and IV Lasix. Oxygen saturation is decent on just 1 liter of nasal sabina. Reat CXR is unchanged, she has has had similar episode through, I even have pulmonology looked at her. Review of Systems Gen: no fever Resp: sob CV: no edemia, no chest pain GI: No n/v, no abd pain Neuro: No confusion, anxious Physical Exam Vital Signs: Vital Signs: Last Vital Signs Temp 98.4 F 07/10/20 14:58 Pulse 92 07/10/20 14:58 Resp 20 07/10/20 14:58 BP 150/72 H 07/10/20 14:58 Pulse Ox 92 07/10/20 14:58 Body Mass Index 22.8 Const: Other: General: anxious w Resp:rhonchi bilateral CVS: S1,S2,RRR GI: +BS, NT, no distention Skin: No rash Neuro: motor grossly intact Psych: appropriate affect Objective Data Current Medications Generic Name Dose Route Start Last Admin Trade Name Freq PRN Reason Stop Dose Admin Acetaminophen 650 mg 06/19/20 11:55 06/30/20 19:59 Acetaminophen 325 Mg Tablet PO 650 mg Q6H PRN Administration Pain, Mild (Pain Scale 1-3) Albuterol/Ipratropium 3 ml 07/04/20 20:00 07/10/20 11:17 Albuterol/Iprat 2.5/0.5mg 3 Ml Ampul.Neb INHALE 3 ml RQ4H GURWINDER Administration Docusate Sodium 100 mg 06/19/20 11:55 Docusate Sodium 100 Mg Capsule PO DAILY PRN Constipation Enoxaparin Sodium 40 mg 06/19/20 11:55 07/10/20 12:22 Enoxaparin Sodium 40 Mg/0.4 Ml Syringe SUBCUT 40 mg Q24H GURWINDER Administration Fentanyl 25 mcg 07/07/20 10:15 07/10/20 10:22 Fentanyl 25 Mcg Patch.Td72 TRANSDERMA 25 mcg Q72H GURWINDER Administration Furosemide 40 mg 07/09/20 22:00 07/10/20 08:58 Furosemide 40 Mg/4 Ml Vial IVPUSH 40 mg Q12H [facility] Administration Protocol Piperacillin Sod/Tazobactam 50 mls @ 100 mls/hr 07/05/20 11:00 07/10/20 11:17 Sod 4.5 gm/ Sodium Chloride IV Infused Q6H GURWINDER Infusion Lorazepam 0.5 mg 07/07/20 13:47 07/10/20 12:22 Lorazepam 2 Mg/Ml Vial IVPUSH 0.5 mg Q4H PRN Administration Anxiety Naloxone HCl 0.2 mg 07/01/20 13:55 07/01/20 12:52 Naloxone Hcl 0.4 Mg/Ml Vial IV 0.2 mg Q5M PRN Administration Sedation Nystatin 1 appl 07/01/20 23:45 07/10/20 08:58 Nystatin Powder 15 Gm Bottle TOPICAL 1 appl BID [facility] Administration Protocol Sodium Chloride 3 ml 06/19/20 11:55 07/10/20 15:01 0.9 % Sodium Chloride Flush 3 Ml Syringe IVFLUSH 3 ml QSHIFT [facility] Administration Labs CBC & Chem 7: 07/09/20 07:03 07/09/20 07:03 Microbiology Microbiology Results: Microbiology 07/02/20 Unknown Pleural Fluid Direct Acid Fast Bacilli Smear - Final 07/02/20 01:38 Pleural Fluid Fungal Identification - Preliminary No growth to date. 06/26/20 13:55 Lung Left Lower Lobe Fungal Identification - Preliminary No growth after 1 week. 06/26/20 13:55 Lung Left Lower Lobe Fungal Identification - Preliminary No growth after 1 week. 07/03/20 14:17 Sputum - Suctioned Gram Stain - Final 07/03/20 14:17 Sputum - Suctioned Sputum Culture - Final 07/02/20 01:38 Pleural Fluid Gram Stain - Final 07/02/20 01:38 Pleural Fluid Routine Culture - Final No growth after 2 days 07/02/20 01:38 Pleural Fluid Anaerobic Culture - Final Anaerococcus tetradius 07/01/20 20:30 Sputum - Suctioned Gram Stain - Final 07/01/20 20:30 Sputum - Suctioned Sputum Culture - Final 06/26/20 13:55 Lung Left Lower Lobe Direct Acid Fast Bacilli Smear - Final 06/26/20 13:55 Lung Left Lower Lobe Direct Acid Fast Bacilli Smear - Final 06/24/20 20:36 Blood - Venous Blood Culture - Final No growth after 5 days. 06/24/20 20:36 Blood - Venous Blood Culture - Final No growth after 5 days. 06/24/20 15:11 Stool Stool Culture - Final Aga albicans 06/26/20 13:55 Lung Left Lower Lobe Gram Stain - Final 06/26/20 13:55 Lung Left Lower Lobe Routine Culture - Final No growth after 2 days 06/26/20 13:55 Lung Left Lower Lobe Gram Stain - Final 06/26/20 13:55 Lung Left Lower Lobe Routine Culture - Final No growth after 2 days 06/19/20 04:07 Blood - Venous Blood Culture - Final Coag negative Staphylococcus 06/19/20 04:07 Blood - Venous Blood Culture - Final No growth after 5 days. Assessment and Plan (1) JOSIAH (acute kidney injury): Problem details: JOSIAH Resolved Hypernatremia - due to free water deficit Improving Keep I > O with hypotonic fluids /free water Shall follow PRN Status: Acute Assessment and Plan: 59-year-old lady with underlying history of COPD, back pain admitted on 06/19/2020 with progressive dyspnea and deemed to be secondary to COPD exacerbation and treated for such. Hospital course complicated by acute heroin intoxication resulting in aspiration cavitary pneumonia further complicated by left-sided empyema and pneumothorax, requiring ventilatory support on 07/01, status post 2 bronchoscopies, successfully extubated on 07/06/2020, also has been treated for cdif. Patient continues on broad-spectrum antibiotic coverage for anaerobic lung infection. # Sepsis due to cavitary pneumonia s/p bronch on 06/26 and 07/01 and [facility] -She received Levaquin x 1 on 06/19 in ED -she was on Ceftriaxone and Azithromycin for CAP from 06/19 to 06/24 -on 06/24, she was started on Vacomycin, Flagyl and Zosyn -Vanco discontinue d/t toxic level and renal failure -Presently still on IV Zosyn and ID had recommened 3 weeks of treatment -CXR today show not change in left effusion -Pulmonology continue to follow -ABG today show incrase pH mirroring hyperventilation--given some ativan and morphin to relieve, -CT of chest to better assess # COPD / asthma exacerbation--has completed 10 days of steroid,continue bronchodilators and oxygen as needed # JOSIAH--likely from vancomycin toxicity. Has fully resolved. 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 Has completed PO Vanco # hyponatremia 129 on 06/19--likely from SSRI. Level has been normal since. #HypeRnatremia--lack of water--encourage oral water and if not improving, IV water. Nephro following # Leukocytosis--she presented on 06/19 with WBC of 45 went irvin to 28 by 06/24, then went back up to 71 on 06/27. This is likely leukomoid reaction from many source including pulmonary infection, steroid and C dif. level is now trending down again at 24.3 today. She was seen by Dr. Starr with some ongoing work up to rule CML. # Anxiety - continue p.r.n. ativan # Back pain-- Fentanyl PT eval, she will need rehab
--- NOTE | 2020-07-10 15:19 | PC.NURSE ---
0800- Pt very SOB with diaphragmatic breathing. R lung sounds coarse, L lung sounds diminished. Respiratory therapy at bedside, giving scheduled updraft treatment. Updraft treatment gave slight improvement. Pt 96% on 1L. PRN ativan given. Dr. Viera made aware. Md at bedside, no new orders. 0900- Pt given scheduled Lasix. 1020- Pt c/o trouble breathing. Respiratory therapy called, will give scheduled updraft treatment as soon as possible. 1210- Pt stating having trouble breathing and is afraid. Does not want this RN to leave the room. Pt given PRN ativan at 1222. Dr. Viera at bedside. Ordered CXR, ABGs, Lasix 20mg, and morphine. Pt previously had scheduled updraft treatment with little relief. Pt audible coarse, lung sounds coarse R side, diminished L side. Will continue to monitor. 1415- Pt requesting this RN to go in room multiple times due to trouble breathing. Pt 85% on 1L NC, increased to 2.5L 90%. No improvement noted in breathing since Lasix. Pt stating she is afraid , can't breathe , wants to go back to ICU . Dr. Viera made aware, at bedside. CT of chest and Ativan 0.5mg ordered. Dr. Christiansen at bedside to see patient, no new orders. 1530- Vitals WNL, 96% on 2.5L NC. Pt resting in bed, diaphramatic breathing still noted. Will continue to monitor.
[2020-07-11] VITALS (11 sets, daily range): BP systolic 134–146; BP diastolic 54–76; PULSE 71–94; RESP 18–20; TEMP 36.3–36.8; O2SAT 93–100
[2020-07-11] MEDS: Albuterol/Iprat 2.5/0.5MG 3 ML AMPUL.NEB INHALE ×5 (00:22→15:41)
[2020-07-11] MEDS: LORazepam 2 MG/ML VIAL 0.5 MG IVPUSH ×6 (01:02→22:55)
[2020-07-11] MEDS: Nystatin Powder 15 GM BOTTLE 1 APPL TOPICAL (09:00)
[2020-07-11] MEDS: Furosemide 40 MG/4 ML VIAL IVPUSH ×2 (09:00→21:54)
[2020-07-11] MEDS: 0.9 % Sodium Chloride Flush 3 ML SYRINGE IVFLUSH ×2 (09:00→16:34)
--- NOTE | 2020-07-11 10:02 | HO.PM.IMPN ---
Subjective Subjective Date of Service: 07/12/20 Interval History: Seen in f/u for respiraoty failure d/t cavitaty pneumonia and has required ICU level of care with mechanical ventilation and intubation. She seems very anxious today. Given additional ativan and morphine and IV Lasix. Had a good night, Oxygen saturation is good and she feels better. Review of Systems Gen: no fever Resp: sob CV: no edemia, no chest pain GI: No n/v, no abd pain Neuro: No confusion, anxious Physical Exam Vital Signs: Vital Signs: Last Vital Signs Temp 98.3 F 07/11/20 07:36 Pulse 90 07/11/20 07:36 Resp 19 07/11/20 07:36 BP 146/76 H 07/11/20 07:36 Pulse Ox 94 07/11/20 07:36 Body Mass Index 22.8 Const: Other: General: less anxious Resp:rhonchi bilateral CVS: S1,S2,RRR GI: +BS, NT, no distention Skin: No rash Neuro: motor grossly intact Psych: appropriate affect Objective Data Current Medications Generic Name Dose Route Start Last Admin Trade Name Freq PRN Reason Stop Dose Admin Acetaminophen 650 mg 06/19/20 11:55 06/30/20 19:59 Acetaminophen 325 Mg Tablet PO 650 mg Q6H PRN Administration Pain, Mild (Pain Scale 1-3) Albuterol/Ipratropium 3 ml 07/04/20 20:00 07/11/20 07:11 Albuterol/Iprat 2.5/0.5mg 3 Ml Ampul.Neb INHALE 3 ml RQ4H GURWINDER Administration Docusate Sodium 100 mg 06/19/20 11:55 Docusate Sodium 100 Mg Capsule PO DAILY PRN Constipation Enoxaparin Sodium 40 mg 06/19/20 11:55 07/10/20 12:22 Enoxaparin Sodium 40 Mg/0.4 Ml Syringe SUBCUT 40 mg Q24H GURWINDER Administration Fentanyl 25 mcg 07/07/20 10:15 07/10/20 10:22 Fentanyl 25 Mcg Patch.Td72 TRANSDERMA 25 mcg Q72H GURWINDER Administration Furosemide 40 mg 07/09/20 22:00 07/11/20 09:00 Furosemide 40 Mg/4 Ml Vial IVPUSH 40 mg Q12H [facility] Administration Protocol Piperacillin Sod/Tazobactam 50 mls @ 100 mls/hr 07/05/20 11:00 07/11/20 05:53 Sod 4.5 gm/ Sodium Chloride IV Infused Q6H [facility]URWINDER Infusion Lorazepam 0.5 mg 07/07/20 13:47 07/11/20 09:13 Lorazepam 2 Mg/Ml Vial IVPUSH 0.5 mg Q4H PRN Administration Anxiety Naloxone HCl 0.2 mg 07/01/20 13:55 07/01/20 12:52 Naloxone Hcl 0.4 Mg/Ml Vial IV 0.2 mg Q5M PRN Administration Sedation Nystatin 1 appl 07/01/20 23:45 07/11/20 09:00 Nystatin Powder 15 Gm Bottle TOPICAL 1 appl BID [facility] Administration Protocol Sodium Chloride 3 ml 06/19/20 11:55 07/11/20 09:00 0.9 % Sodium Chloride Flush 3 Ml Syringe IVFLUSH 3 ml QSHIFT [facility] Administration Labs CBC & Chem 7: 07/09/20 07:03 07/12/20 08:55 Microbiology Microbiology Results: Microbiology 07/02/20 Unknown Pleural Fluid Direct Acid Fast Bacilli Smear - Final 07/02/20 01:38 Pleural Fluid Fungal Identification - Preliminary No growth to date. 06/26/20 13:55 Lung Left Lower Lobe Fungal Identification - Preliminary No growth after 1 week. 06/26/20 13:55 Lung Left Lower Lobe Fungal Identification - Preliminary No growth after 1 week. 07/03/20 14:17 Sputum - Suctioned Gram Stain - Final 07/03/20 14:17 Sputum - Suctioned Sputum Culture - Final 07/02/20 01:38 Pleural Fluid Gram Stain - Final 07/02/20 01:38 Pleural Fluid Routine Culture - Final No growth after 2 days 07/02/20 01:38 Pleural Fluid Anaerobic Culture - Final Anaerococcus tetradius 07/01/20 20:30 Sputum - Suctioned Gram Stain - Final 07/01/20 20:30 Sputum - Suctioned Sputum Culture - Final 06/26/20 13:55 Lung Left Lower Lobe Direct Acid Fast Bacilli Smear - Final 06/26/20 13:55 Lung Left Lower Lobe Direct Acid Fast Bacilli Smear - Final 06/24/20 20:36 Blood - Venous Blood Culture - Final No growth after 5 days. 06/24/20 20:36 Blood - Venous Blood Culture - Final No growth after 5 days. 06/24/20 15:11 Stool Stool Culture - Final Aga albicans 06/26/20 13:55 Lung Left Lower Lobe Gram Stain - Final 06/26/20 13:55 Lung Left Lower Lobe Routine Culture - Final No growth after 2 days 06/26/20 13:55 Lung Left Lower Lobe Gram Stain - Final 06/26/20 13:55 Lung Left Lower Lobe Routine Culture - Final No growth after 2 days 06/19/20 04:07 Blood - Venous Blood Culture - Final Coag negative Staphylococcus 06/19/20 04:07 Blood - Venous Blood Culture - Final No growth after 5 days. Assessment and Plan (1) JOSIAH (acute kidney injury): Problem details: JOSIAH Resolved Hypernatremia - due to free water deficit Alkalosis with Hypokalemia Check Urine Chloride Replace K Keep I > O with hypotonic fluids /free water Shall follow PRN Status: Acute Assessment and Plan: 59-year-old lady with underlying history of COPD, back pain admitted on 06/19/2020 with progressive dyspnea and deemed to be secondary to COPD exacerbation and treated for such. Hospital course complicated by acute heroin intoxication resulting in aspiration cavitary pneumonia further complicated by left-sided empyema and pneumothorax, requiring ventilatory support on 07/01, status post 2 bronchoscopies, successfully extubated on 07/06/2020, also has been treated for cdif. Patient continues on broad-spectrum antibiotic coverage for anaerobic lung infection. # Sepsis due to cavitary pneumonia s/p bronch on 06/26 and 07/01 and [facility] -She received Levaquin x 1 on 06/19 in ED -she was on Ceftriaxone and Azithromycin for CAP from 06/19 to 06/24 -on 06/24, she was started on Vacomycin, Flagyl and Zosyn -Vanco discontinue d/t toxic level and renal failure -Presently still on IV Zosyn and ID had recommened 3 weeks of treatment -CXR today show not change in left effusion -Pulmonology continue to follow -ABG today show incrase pH mirroring hyperventilation--given some ativan and morphin to relieve, -CT of chest to better assess # COPD / asthma exacerbation--has completed 10 days of steroid,continue bronchodilators and oxygen as needed wean off O2 # JOSIAH--likely from vancomycin toxicity. Has fully resolved. 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 Has completed PO Vanco # hyponatremia 129 on 06/19--likely from SSRI. Level has been normal since. #Hypernatremia--encourge oral water, Nephro consult. #Hypokalemia, replace with PO and IV K, check Mag #HypeRnatremia--lack of water--encourage oral water and if not improving, IV water. Nephro following # Leukocytosis--she presented on 06/19 with WBC of 45 went irvin to 28 by 06/24, then went back up to 71 on 06/27. This is likely leukomoid reaction from many source including pulmonary infection, steroid and C dif. level is now trending down again at 24.3 today. She was seen by Dr. Starr with some ongoing work up to rule CML. # Anxiety - continue p.r.n. ativan # Back pain-- Fentanyl PT eval, she will need rehab
[2020-07-11 10:19] LABS: Anion Gap 14 (12-20); Blood Urea Nitrogen 10 mg/dL (9-16); Calcium 7.2 mg/dL (8.4-10.2); Carbon Dioxide 42 mmol/L (22-29); Chloride 95 mmol/L (96-108); Creatinine Clr Calc Pharmacy 77.9; Estimated Glomerular Filt Rate > 60; Glucose Random 92 mg/dL (60-115); Potassium 2.4 mmol/l (3.3-5.1); Sodium 149 mmol/L (135-145)
--- NOTE | 2020-07-11 10:29 | MHC.CLN ---
F/U POOR PO INTAKE CONTINUES DIET RX: GROUND WITH NT LIQ-APPROPRIATE RECEIVING ENSURE BID TO INCREASE KCALS WILL ADD ENSURE PUDDING WITH MEALS MONITOR PO INTAKE CLOSELY
--- NOTE | 2020-07-11 10:35 | PM.PNNEP ---
Subjective Subjective Date of Service: 07/11/20 Principal diagnosis: Cavitary Pneumonia Lt lower lobe . Interval history: Events noted Physical Exam Vital Signs: Vital Signs: Last Vital Signs Temp 98.3 F 07/11/20 07:36 Pulse 90 07/11/20 07:36 Resp 19 07/11/20 07:36 BP 146/76 H 07/11/20 07:36 Pulse Ox 94 07/11/20 07:36 Body Mass Index 22.8 Const: General: ill appearing Neck: Neck: Yes supple Resp: Auscultation: diminished lung sounds Cardio: Heart sounds: no gallops and no rubs Neuro: Motor exam (neuro): No Asterixis during motor activity present Objective Data Labs CBC & Chem 7: 07/09/20 07:03 07/11/20 08:41 Labs: Laboratory Results - last 24 hr 07/10/20 07/11/20 12:40 08:41 ABG pH 7.50 H ABG pCO2 47 H ABG pO2 61 L ABG HCO3 36 H ABG O2 Saturation 92.9 ABG Base Excess 11.3 Oxygen Given 1 L Sodium 149 H Potassium 2.4 L* D Chloride 95 L Carbon Dioxide 42 H* D Anion Gap 14 BUN 10 Creatinine 0.63 Estim Creat Clear Calc 77.9 Estimated GFR > 60 Random Glucose 92 Calcium 7.2 L D Microbiology Microbiology Results: Microbiology 07/02/20 Unknown Pleural Fluid Direct Acid Fast Bacilli Smear - Final 07/02/20 01:38 Pleural Fluid Fungal Identification - Preliminary No growth to date. 06/26/20 13:55 Lung Left Lower Lobe Fungal Identification - Preliminary No growth after 1 week. 06/26/20 13:55 Lung Left Lower Lobe Fungal Identification - Preliminary No growth after 1 week. 07/03/20 14:17 Sputum - Suctioned Gram Stain - Final 07/03/20 14:17 Sputum - Suctioned Sputum Culture - Final 07/02/20 01:38 Pleural Fluid Gram Stain - Final 07/02/20 01:38 Pleural Fluid Routine Culture - Final No growth after 2 days 07/02/20 01:38 Pleural Fluid Anaerobic Culture - Final Anaerococcus tetradius 07/01/20 20:30 Sputum - Suctioned Gram Stain - Final 07/01/20 20:30 Sputum - Suctioned Sputum Culture - Final 06/26/20 13:55 Lung Left Lower Lobe Direct Acid Fast Bacilli Smear - Final 06/26/20 13:55 Lung Left Lower Lobe Direct Acid Fast Bacilli Smear - Final 06/24/20 20:36 Blood - Venous Blood Culture - Final No growth after 5 days. 06/24/20 20:36 Blood - Venous Blood Culture - Final No growth after 5 days. 06/24/20 15:11 Stool Stool Culture - Final Aga albicans 06/26/20 13:55 Lung Left Lower Lobe Gram Stain - Final 06/26/20 13:55 Lung Left Lower Lobe Routine Culture - Final No growth after 2 days 06/26/20 13:55 Lung Left Lower Lobe Gram Stain - Final 06/26/20 13:55 Lung Left Lower Lobe Routine Culture - Final No growth after 2 days 06/19/20 04:07 Blood - Venous Blood Culture - Final Coag negative Staphylococcus 06/19/20 04:07 Blood - Venous Blood Culture - Final No growth after 5 days. Assessment & Plan Assessment and plan (1) JOSIAH (acute kidney injury): Problem details: JOSIAH Resolved Hypernatremia - due to free water deficit Alkalosis with Hypokalemia Check Urine Chloride Replace K Keep I > O with hypotonic fluids /free water Shall follow PRN Status: Acute Time Spent With Patient Time: Total time spent is greater than 50% in coordination of care (as documented) at patient's floor/unit and/or counseling patient:
--- NOTE | 2020-07-11 11:31 | MHC.CM.PN ---
per rounds pt will be here over the weekend md will order a pt eval pt may need str prior to returning home
[2020-07-11 11:42] LABS: Magnesium 1.3 mg/dL (1.6-2.6)
[2020-07-11] MEDS: KCl 20 mEq in 5% Dex/0.45% Sod 20 MEQ/1,000 ML IV.SOLN 100 MEQ IVCONT ×2 (12:34→21:54)
[2020-07-11] MEDS: Enoxaparin Sodium 40 MG/0.4 ML SYRINGE SUBCUT (12:35)
[2020-07-11] MEDS: Acetaminophen 325 MG TABLET 650 MG PO ×2 (13:30→23:16)
[2020-07-11] MEDS: Magnesium Sulfate/H2O 2 GM/50 ML PIGGYBACK IV ×2 (13:31→16:33)
[2020-07-11] MEDS: Albuterol/Iprat 2.5/0.5MG 3 ML AMPUL.NEB 1.5 ML INHALE (20:49)
[2020-07-12] VITALS (8 sets, daily range): BP systolic 123–142; BP diastolic 45–70; PULSE 75–99; RESP 18; TEMP 36.4–37.2; O2SAT 95–100
[2020-07-12] MEDS: LORazepam 2 MG/ML VIAL 0.5 MG IVPUSH ×3 (04:28→13:02)
[2020-07-12] MEDS: KCl 20 mEq in 5% Dex/0.45% Sod 20 MEQ/1,000 ML IV.SOLN 100 MEQ IVCONT (06:02)
[2020-07-12] MEDS: Albuterol/Iprat 2.5/0.5MG 3 ML AMPUL.NEB INHALE ×3 (07:56→20:02)
[2020-07-12] MEDS: Nystatin Powder 15 GM BOTTLE 1 APPL TOPICAL ×2 (08:33→21:12)
[2020-07-12] MEDS: Furosemide 40 MG/4 ML VIAL IVPUSH ×2 (09:00→21:06)
[2020-07-12 09:40] LABS: Anion Gap 12 (12-20); Blood Urea Nitrogen 8 mg/dL (9-16); Calcium 7.5 mg/dL (8.4-10.2); Carbon Dioxide 40 mmol/L (22-29); Chloride 96 mmol/L (96-108); Creatinine Clr Calc Pharmacy 72.2; Estimated Glomerular Filt Rate > 60; Glucose Random 118 mg/dL (60-115); Potassium 3.1 mmol/l (3.3-5.1); Sodium 145 mmol/L (135-145)
--- NOTE | 2020-07-12 09:46 | P.PNIM_ITS ---
Subjective Subjective Date of Service: 07/12/20 Interval History: Seen in f/u for respiraoty failure d/t cavitaty pneumonia and has required ICU level of care with mechanical ventilation and intubation. She looks and feels much better today, slept better. She has persistent swelling in legs Review of Systems Gen: no fever Resp: sob CV: no edemia, no chest pain GI: No n/v, no abd pain Neuro: No confusion,les anxious Physical Exam Vital Signs: Vital Signs: Last Vital Signs Temp 98.7 F 07/12/20 07:29 Pulse 84 07/12/20 07:57 Resp 18 07/12/20 07:29 BP 132/69 07/12/20 07:29 Pulse Ox 100 07/12/20 07:29 Body Mass Index 22.8 Const: Other: General: less anxious Resp:rhonchi bilateral CVS: S1,S2,RRR, 2+edema in feet hao GI: +BS, NT, no distention Skin: No rash Neuro: motor grossly intact Psych: appropriate affect Objective Data Current Medications Generic Name Dose Route Start Last Admin Trade Name Freq PRN Reason Stop Dose Admin Acetaminophen 650 mg 06/19/20 11:55 07/11/20 23:16 Acetaminophen 325 Mg Tablet PO 650 mg Q6H PRN Administration Pain, Mild (Pain Scale 1-3) Albuterol/Ipratropium 3 ml 07/12/20 08:00 07/12/20 07:56 Albuterol/Iprat 2.5/0.5mg 3 Ml Ampul.Neb INHALE 3 ml RQ6H WHILE AWAKE GURWINDER Administration Albuterol/Ipratropium 3 ml 07/12/20 07:30 Albuterol/Iprat 2.5/0.5mg 3 Ml Ampul.Neb INHALE Q2H PRN Shortness of Breath/Wheezing Docusate Sodium 100 mg 06/19/20 11:55 Docusate Sodium 100 Mg Capsule PO DAILY PRN Constipation Enoxaparin Sodium 40 mg 06/19/20 11:55 07/11/20 12:35 Enoxaparin Sodium 40 Mg/0.4 Ml Syringe SUBCUT 40 mg Q24H GURWINDER Administration Fentanyl 25 mcg 07/07/20 10:15 07/10/20 10:22 Fentanyl 25 Mcg Patch.[id number] TRANSDERMA 25 mcg Q72H GURWINDER Administration Furosemide 40 mg 07/09/20 22:00 07/12/20 09:00 Furosemide 40 Mg/4 Ml Vial IVPUSH 40 mg Q12H GURWINDER Administration Protocol Piperacillin Sod/Tazobactam 50 mls @ 100 mls/hr 07/05/20 11:00 07/12/20 04:30 Sod 4.5 gm/ Sodium Chloride IV Infused Q6H GURWINDER Infusion Potassium Chloride/Dextrose/Sod Cl 20 meq in 1,000 mls @ 100 mls/hr 07/11/20 10:30 07/12/20 06:02 IVCONT 100 mls/hr .Q10H GURWINDER Administration Lorazepam 0.5 mg 07/07/20 13:47 07/12/20 08:32 Lorazepam 2 Mg/Ml Vial IVPUSH 0.5 mg Q4H PRN Administration Anxiety Naloxone HCl 0.2 mg 07/01/20 13:55 07/01/20 12:52 Naloxone Hcl 0.4 Mg/Ml Vial IV 0.2 mg Q5M PRN Administration Sedation Nystatin 1 appl 07/01/20 23:45 07/12/20 08:33 Nystatin Powder 15 Gm Bottle TOPICAL 1 appl BID GURWINDER Administration Protocol Potassium Chloride 40 meq 07/11/20 11:00 07/12/20 04:01 Potassium Chloride Er 10 Meq Capsule.Er PO 07/12/20 11:01 40 meq Q8H GURWINDER Administration Sodium Chloride 3 ml 06/19/20 11:55 07/12/20 07:33 0.9 % Sodium Chloride Flush 3 Ml Syringe IVFLUSH Not Given QSHIFT [facility] Labs CBC & Chem 7: 07/09/20 07:03 07/12/20 08:55 Microbiology Microbiology Results: Microbiology 07/02/20 Unknown Pleural Fluid Direct Acid Fast Bacilli Smear - Final 07/02/20 01:38 Pleural Fluid Fungal Identification - Preliminary No growth to date. 06/26/20 13:55 Lung Left Lower Lobe Fungal Identification - Preliminary No growth after 1 week. 06/26/20 13:55 Lung Left Lower Lobe Fungal Identification - Preliminary No growth after 1 week. 07/03/20 14:17 Sputum - Suctioned Gram Stain - Final 07/03/20 14:17 Sputum - Suctioned Sputum Culture - Final 07/02/20 01:38 Pleural Fluid Gram Stain - Final 07/02/20 01:38 Pleural Fluid Routine Culture - Final No growth after 2 days 07/02/20 01:38 Pleural Fluid Anaerobic Culture - Final Anaerococcus tetradius 07/01/20 20:30 Sputum - Suctioned Gram Stain - Final 07/01/20 20:30 Sputum - Suctioned Sputum Culture - Final 06/26/20 13:55 Lung Left Lower Lobe Direct Acid Fast Bacilli Smear - Final 06/26/20 13:55 Lung Left Lower Lobe Direct Acid Fast Bacilli Smear - Final 06/24/20 20:36 Blood - Venous Blood Culture - Final No growth after 5 days. 06/24/20 20:36 Blood - Venous Blood Culture - Final No growth after 5 days. 06/24/20 15:11 Stool Stool Culture - Final Aga albicans 06/26/20 13:55 Lung Left Lower Lobe Gram Stain - Final 06/26/20 13:55 Lung Left Lower Lobe Routine Culture - Final No growth after 2 days 06/26/20 13:55 Lung Left Lower Lobe Gram Stain - Final 06/26/20 13:55 Lung Left Lower Lobe Routine Culture - Final No growth after 2 days 06/19/20 04:07 Blood - Venous Blood Culture - Final Coag negative Staphylococcus 06/19/20 04:07 Blood - Venous Blood Culture - Final No growth after 5 days. Assessment and Plan (1) JOSIAH (acute kidney injury): Problem details: JOSIAH Resolved Hypernatremia - due to free water deficit Alkalosis with Hypokalemia Check Urine Chloride Replace K Keep I > O with hypotonic fluids /free water Shall follow PRN Status: Acute Assessment and Plan: 59-year-old lady with underlying history of COPD, back pain admitted on 06/19/2020 with progressive dyspnea and deemed to be secondary to COPD exacerbation and treated for such. Hospital course complicated by acute heroin intoxication resulting in aspiration cavitary pneumonia further complicated by left-sided empyema and pneumothorax, requiring ventilatory support on 07/01, status post 2 bronchoscopies, successfully extubated on 07/06/2020, also has been treated for cdif. Patient continues on broad-spectrum antibiotic coverage for anaerobic lung infection. # Sepsis due to cavitary pneumonia s/p bronch on 06/26 and 07/01 and [facility] -She received Levaquin x 1 on 06/19 in ED -she was on Ceftriaxone and Azithromycin for CAP from 06/19 to 06/24 -on 06/24, she was started on Vacomycin, Flagyl and Zosyn -Vanco discontinue d/t toxic level and renal failure -Presently still on IV Zosyn and ID had recommened 3 weeks of treatment -CXR today show not change in left effusion -Pulmonology continue to follow # COPD / asthma exacerbation--has completed 10 days of steroid,continue bronchodilators and oxygen as needed wean off O2 # JOSIAH--likely from vancomycin toxicity. Has fully resolved. 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 Has completed PO Vanco, has new diarrhea so recheck C dif # hyponatremia 129 on 06/19--likely from SSRI. Level has been normal since. #Hypernatremia--Resolved, sodium 45 #Hypokalemia, replaced with IV and PO K now 3.3, continue oral suplmentation. #Hypomagnesemia--given IV Mag, recheck today # Leukocytosis--she presented on 06/19 with WBC of 45 went irvin to 28 by 06/24, then went back up to 71 on 06/27. This is likely leukomoid reaction from many source including pulmonary infection, steroid and C dif. level is now trending down again at 24.3 today. She was seen by Dr. Starr with some ongoing work up to rule CML. # Anxiety - continue p.r.n. ativan # Back pain-- Fentanyl #Edema in legs, Pleural effusion--continue Lasix for fluid overload Metabolic alkalosis--bicacb of 40, due to lasix, give some diamox PT to reassess but she is upfront declining rehab
[2020-07-12] MEDS: acetaZOLAMIDE 250 MG TABLET PO ×2 (10:43→21:06)
[2020-07-12] MEDS: Enoxaparin Sodium 40 MG/0.4 ML SYRINGE SUBCUT (11:01)
[2020-07-12 12:05] LABS: CDIFF Ag Negative (Negative); CDIFF Internal ctrl Dots and bkg OK (V); CDiff Toxin Negative (Negative)
[2020-07-12] MEDS: 0.9 % Sodium Chloride Flush 3 ML SYRINGE IVFLUSH ×2 (15:04→21:07)
[2020-07-12] MEDS: LORazepam 0.5 MG TABLET PO ×2 (17:00→21:07)
[2020-07-12] MEDS: guaiFENesin 100 MG/5 ML LIQUID PO (17:00)
[2020-07-12] MEDS: Acetaminophen 325 MG TABLET 650 MG PO (17:00)
--- NOTE | 2020-07-12 21:55 | P.PNNP_ITS ---
Subjective Subjective Date of Service: 07/12/20 Principal diagnosis: Cavitary Pneumonia Lt lower lobe . Interval history: Seen in f/u for respiratory failure d/t pneumonia and has required ICU level of care with mechanical ventilation and intubation. She looks and feels much better today, slept better. She has persistent swelling in legs Physical Exam Vital Signs: Vital Signs: Last Vital Signs Temp 98.9 F 07/12/20 18:52 Pulse 91 07/12/20 20:04 Resp 18 07/12/20 18:52 BP 142/70 H 07/12/20 18:52 Pulse Ox 99 07/12/20 18:52 Body Mass Index 22.8 Const: Other: General: less anxious Resp:rhonchi bilateral CVS: S1,S2,RRR, 2+edema in feet hao GI: +BS, NT, no distention Skin: No rash Neuro: motor grossly intact Psych: appropriate affect General: cooperative, no acute distress, alert, awake and ill appearing Orientation/consciousness: patient oriented x3 Limitations: No language barrier HENMT: Other: has endotracheal tube in. Head: Yes normal to inspection General nose exam: Abnormal external nose present and Nasal discharge present Mouth: Normal oral and palatal mucosa present Eyes: General: appearance normal, both eyes and all related structures Sclerae: sclerae normal Pupils: Equal, round and reactive pupils present EOM: EOMs intact bilaterally Neck: Neck: Yes normal visual inspection, Yes full ROM, Yes no lymphadenopathy, Yes trachea midline, Yes supple and No no JVD Chest: Other: dull over the left chest. Chest palpation & inspection: normal inspection of the chest and other (Two left-sided chest tubes remain in place) Resp: Other: Breath sounds diminished on long left side with rhonchi appreci ated on right. Effort & Inspection: normal respiratory effort and no respiratory distress Auscultation: clear to auscultation bilaterally, crackles, rhonchi, diminished lung sounds and other (Diminished left basilar air movement) Cardio: Other: General: less anxious Resp:rhonchi bilateral CVS: S1,S2,RRR, 2+edema in feet hao GI: +BS, NT, no distention Skin: No rash Neuro: motor grossly intact Psych: appropriate affect Jugular venous distension: no JVD Rate: regular rate Rhythm: regular rhythm Heart sounds: S1 normal heart sound present, S2 normal heart sound present, no gallops, no murmurs and no rubs GI: Inspection: Yes normal to inspection Palpation (GI): Soft to palpation, nontender and Other GI palpation findings present ( Nontender) Percussion: Yes normal to percussion Auscultation: normal bowel sounds : General: Yes no CVA tenderness Back/Spine/Pelvis: Back: no CVA tenderness Thoracic/Lumbar Spine: thoracic and lumbar spine normal to inspection Skin: General skin exam: no rashes or lesions noted Neuro: General: patient oriented x3 and no focal motor deficits Cranial nerves: Yes Equal, round and reactive pupils present Cognition (Neuro): normal cognition Motor exam (neuro): No Asterixis during motor activity present Extrem: General: Yes normal to inspection, Yes no clubbing, cyanosis or edema, Yes no pedal edema, No clubbing, No cyanosis and Yes edema (1+ bilateral) Psych: Other: slightly depressed and discouraged Objective Data Labs CBC & Chem 7: 07/09/20 07:03 07/12/20 08:55 Labs: Laboratory Results - last 24 hr 07/12/20 07/12/20 08:55 10:30 Sodium 145 Potassium 3.1 L D Chloride 96 Carbon Dioxide 40 H* Anion Gap 12 BUN 8 L Creatinine 0.68 Estim Creat Clear Calc 72.2 Estimated GFR > 60 Random Glucose 118 H Calcium 7.5 L Magnesium 2.0 C. difficile Toxin A&B Negative C. difficile Antigen Negative C. difficile Interpret SEE NOTE Microbiology Microbiology Results: Microbiology 07/02/20 Unknown Pleural Fluid Direct Acid Fast Bacilli Smear - Final 07/02/20 01:38 Pleural Fluid Fungal Identification - Preliminary No growth to date. 06/26/20 13:55 Lung Left Lower Lobe Fungal Identification - Preliminary No growth after 1 week. 06/26/20 13:55 Lung Left Lower Lobe Fungal Identification - Preliminary No growth after 1 week. 07/03/20 14:17 Sputum - Suctioned Gram Stain - Final 07/03/20 14:17 Sputum - Suctioned Sputum Culture - Final 07/02/20 01:38 Pleural Fluid Gram Stain - Final 07/02/20 01:38 Pleural Fluid Routine Culture - Final No growth after 2 days 07/02/20 01:38 Pleural Fluid Anaerobic Culture - Final Anaerococcus tetradius 07/01/20 20:30 Sputum - Suctioned Gram Stain - Final 07/01/20 20:30 Sputum - Suctioned Sputum Culture - Final 06/26/20 13:55 Lung Left Lower Lobe Direct Acid Fast Bacilli Smear - Final 06/26/20 13:55 Lung Left Lower Lobe Direct Acid Fast Bacilli Smear - Final 06/24/20 20:36 Blood - Venous Blood Culture - Final No growth after 5 days. 06/24/20 20:36 Blood - Venous Blood Culture - Final No growth after 5 days. 06/24/20 15:11 Stool Stool Culture - Final Aga albicans 06/26/20 13:55 Lung Left Lower Lobe Gram Stain - Final 06/26/20 13:55 Lung Left Lower Lobe Routine Culture - Final No growth after 2 days 06/26/20 13:55 Lung Left Lower Lobe Gram Stain - Final 06/26/20 13:55 Lung Left Lower Lobe Routine Culture - Final No growth after 2 days 06/19/20 04:07 Blood - Venous Blood Culture - Final Coag negative Staphylococcus 06/19/20 04:07 Blood - Venous Blood Culture - Final No growth after 5 days. Assessment & Plan Assessment and plan (1) JOSIAH (acute kidney injury): Problem details: JOSIAH Resolved Hypernatremia - due to free water deficit Alkalosis with Hypokalemia Check Urine Chloride Replace K Keep I > O with hypotonic fluids /free water Shall follow PRN Status: Acute Assessment and Plan: 59-year-old lady with underlying history of COPD, back pain admitted on 06/19/2020 with progressive dyspnea and deemed to be secondary to COPD exacerbation and treated for such. Hospital course complicated by acute heroin intoxication resulting in aspiration cavitary pneumonia further complicated by left-sided empyema and pneumothorax, requiring ventilatory support on 07/01, status post 2 bronchoscopies, successfully extubated on 07/06/2020, also has been treated for cdif. Patient continues on broad-spectrum antibiotic coverage for anaerobic lung infection. # Sepsis due to cavitary pneumonia s/p bronch on 06/26 and 07/01 and [facility] -She received Levaquin x 1 on 06/19 in ED -she was on Ceftriaxone and Azithromycin for CAP from 06/19 to 06/24 -on 06/24, she was started on Vacomycin, Flagyl and Zosyn -Vanco discontinue d/t toxic level and renal failure -Presently still on IV Zosyn and ID had recommened 3 weeks of treatment -CXR today show not change in left effusion -Pulmonology continue to follow # COPD / asthma exacerbation--has completed 10 days of steroid,continue bronchodilators and oxygen as needed wean off O2 # JOSIAH--likely from vancomycin toxicity. Has fully resolved. 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 Has completed PO Vanco, has new diarrhea so recheck C d if # hyponatremia 129 on 06/19--likely from SSRI. Level has been normal since. #Hypernatremia--Resolved, sodium 45 #Hypokalemia, replaced with IV and PO K now 3.3, continue oral suplmentation. #Hypomagnesemia--given IV Mag, recheck today # Leukocytosis--she presented on 06/19 with WBC of 45 went irvin to 28 by 06/24, then went back up to 71 on 06/27. This is likely leukomoid reaction from many source including pulmonary infection, steroid and C dif. level is now trending down again at 24.3 today. She was seen by Dr. Starr with some ongoing work up to rule CML. # Anxiety - continue p.r.n. ativan # Back pain-- Fentanyl #Edema in legs, Pleural effusion--continue Lasix for fluid overload Metabolic alkalosis--bicacb of 40, due to lasix, give some diamox PT to reassess but she is upfront declining rehab 07-12 replace KCL Time Spent With Patient Time: Total time spent is greater than 50% in coordination of care (as documented) at patient's floor/unit and/or counseling patient:
[2020-07-13] VITALS (10 sets, daily range): BP systolic 127–152; BP diastolic 59–78; PULSE 79–94; RESP 18; TEMP 36.5–37.2; O2SAT 92–97
[2020-07-13] MEDS: guaiFENesin 100 MG/5 ML LIQUID PO ×3 (02:11→15:16)
[2020-07-13] MEDS: LORazepam 0.5 MG TABLET PO ×5 (02:11→20:53)
[2020-07-13] MEDS: Acetaminophen 325 MG TABLET 650 MG PO ×3 (02:11→17:23)
[2020-07-13] MEDS: Albuterol/Iprat 2.5/0.5MG 3 ML AMPUL.NEB INHALE ×4 (05:51→20:40)
[2020-07-13 07:06] LABS: Magnesium 1.8 mg/dL (1.6-2.6)
[2020-07-13 07:11] LABS: Hemoglobin 8.5 g/dl (12.0-16.0); Mean Corpuscular HGB Conc 31.5 g/dl (31.0-35.0); Mean Corpuscular Hemoglobin 28.4 pg (27.0-33.0); Mean Corpuscular Volume 90.3 fL (80-98); Mean Platelet Volume 11.2 fL (9.4-12.3); Platelet Count 314 X10*3/uL (160-400); Red Blood Count 2.99 X10*6/uL (4.20-5.50); Red Cell Distribution Width 16.7 % (11.0-16.0)
[2020-07-13 07:12] LABS: Anion Gap 10 (12-20); Blood Urea Nitrogen 10 mg/dL (9-16); Calcium 7.9 mg/dL (8.4-10.2); Carbon Dioxide 37 mmol/L (22-29); Chloride 98 mmol/L (96-108); Creatinine Clr Calc Pharmacy 74.4; Estimated Glomerular Filt Rate > 60; Glucose Random 88 mg/dL (60-115); Sodium 142 mmol/L (135-145)
[2020-07-13] MEDS: acetaZOLAMIDE 250 MG TABLET PO ×2 (08:11→20:38)
[2020-07-13] MEDS: Nystatin Powder 15 GM BOTTLE 1 APPL TOPICAL ×2 (08:11→20:38)
[2020-07-13] MEDS: 0.9 % Sodium Chloride Flush 3 ML SYRINGE IVFLUSH ×3 (08:11→20:38)
--- NOTE | 2020-07-13 09:14 | P.PNIM_ITS ---
Subjective Subjective Date of Service: 07/13/20 Interval History: Seen in f/u for respiratory failure d/t pneumonia and has required ICU level of care with mechanical ventilation and intubation. She looks and feels much better but feels somehow congestes Review of Systems Gen: no fever Resp: sob CV: no edemia, no chest pain GI: No n/v, no abd pain Neuro: No confusion,les anxious Physical Exam Vital Signs: Vital Signs: Last Vital Signs Temp 98.6 F 07/13/20 07:45 Pulse 87 07/13/20 07:45 Resp 18 07/13/20 07:45 BP 152/71 H 07/13/20 07:45 Pulse Ox 93 07/13/20 07:45 Body Mass Index 22.8 Const: Other: General: less anxious Resp:rhonchi bilateral CVS: S1,S2,RRR, no more edema GI: +BS, NT, no distention Skin: No rash Neuro: motor grossly intact Psych: appropriate affect Objective Data Current Medications Generic Name Dose Route Start Last Admin Trade Name Ramsesq PRN Reason Stop Dose Admin Acetaminophen 650 mg 06/19/20 11:55 07/13/20 02:11 Acetaminophen 325 Mg Tablet PO 650 mg Q6H PRN Administration Pain, Mild (Pain Scale 1-3) Acetazolamide 250 mg 07/12/20 10:15 07/13/20 08:11 Acetazolamide 250 Mg Tablet PO 07/13/20 21:01 250 mg BID GURWINDER Administration Albuterol/Ipratropium 3 ml 07/12/20 08:00 07/13/20 07:56 Albuterol/Iprat 2.5/0.5mg 3 Ml Ampul.Neb INHALE 3 ml RQ6H WHILE AWAKE GURWINDER Administration Albuterol/Ipratropium 3 ml 07/12/20 07:30 07/13/20 05:51 Albuterol/Iprat 2.5/0.5mg 3 Ml Ampul.Neb INHALE 3 ml Q2H PRN Administration Shortness of Breath/Wheezing Docusate Sodium 100 mg 06/19/20 11:55 Docusate Sodium 100 Mg Capsule PO DAILY PRN Constipation Enoxaparin Sodium 40 mg 06/19/20 11:55 07/12/20 11:01 Enoxaparin Sodium 40 Mg/0.4 Ml Syringe SUBCUT 40 mg Q24H GURWINDER Administration Fentanyl 25 mcg 07/07/20 10:15 07/10/20 10:22 Fentanyl 25 Mcg Patch.[id number] TRANSDERMA 25 mcg Q72H GURWINDER Administration Furosemide 40 mg 07/09/20 22:00 07/12/20 21:06 Furosemide 40 Mg/4 Ml Vial IVPUSH 40 mg Q12H GURWINDER Administration Protocol Guaifenesin 5 ml 07/12/20 16:27 07/13/20 06:42 Guaifenesin 100 Mg/5 Ml Liquid PO 5 ml Q4H PRN Administration Cough Lorazepam 0.5 mg 07/12/20 16:30 07/13/20 06:42 Lorazepam 0.5 Mg Tablet PO 0.5 mg Q4H PRN Administration Anxiety Naloxone HCl 0.2 mg 07/01/20 13:55 07/01/20 12:52 Naloxone Hcl 0.4 Mg/Ml Vial IV 0.2 mg Q5M PRN Administration Sedation Nystatin 1 appl 07/01/20 23:45 07/13/20 08:11 Nystatin Powder 15 Gm Bottle TOPICAL 1 appl BID GURWINDER Administration Protocol Sodium Chloride 3 ml 06/19/20 11:55 07/13/20 08:11 0.9 % Sodium Chloride Flush 3 Ml Syringe IVFLUSH 3 ml QSHIFT GURWINDER Administration Labs CBC & Chem 7: 07/13/20 05:53 07/13/20 05:53 Microbiology Microbiology Results: Microbiology 07/02/20 Unknown Pleural Fluid Direct Acid Fast Bacilli Smear - Final 07/02/20 01:38 Pleural Fluid Fungal Identification - Preliminary No growth to date. 06/26/20 13:55 Lung Left Lower Lobe Fungal Identification - Preliminary No growth after 1 week. 06/26/20 13:55 Lung Left Lower Lobe Fungal Identification - Preliminary No growth after 1 week. 07/03/20 14:17 Sputum - Suctioned Gram Stain - Final 07/03/20 14:17 Sputum - Suctioned Sputum Culture - Final 07/02/20 01:38 Pleural Fluid Gram Stain - Final 07/02/20 01:38 Pleural Fluid Routine Culture - Final No growth after 2 days 07/02/20 01:38 Pleural Fluid Anaerobic Culture - Final Anaerococcus tetradius 07/01/20 20:30 Sputum - Suctioned Gram Stain - Final 07/01/20 20:30 Sputum - Suctioned Sputum Culture - Final 06/26/20 13:55 Lung Left Lower Lobe Direct Acid Fast Bacilli Smear - Final 06/26/20 13:55 Lung Left Lower Lobe Direct Acid Fast Bacilli Smear - Final 06/24/20 20:36 Blood - Venous Blood Culture - Final No growth after 5 days. 06/24/20 20:36 Blood - Venous Blood Culture - Final No growth after 5 days. 06/24/20 15:11 Stool Stool Culture - Final Aga albicans 06/26/20 13:55 Lung Left Lower Lobe Gram Stain - Final 06/26/20 13:55 Lung Left Lower Lobe Routine Culture - Final No growth after 2 days 06/26/20 13:55 Lung Left Lower Lobe Gram Stain - Final 06/26/20 13:55 Lung Left Lower Lobe Routine Culture - Final No growth after 2 days 06/19/20 04:07 Blood - Venous Blood Culture - Final Coag negative Staphylococcus 06/19/20 04:07 Blood - Venous Blood Culture - Final No growth after 5 days. Assessment and Plan (1) JOSIAH (acute kidney injury): Problem details: JOSIAH Resolved Hypernatremia - due to free water deficit Alkalosis with Hypokalemia Check Urine Chloride Replace K Keep I > O with hypotonic fluids /free water Shall follow PRN Status: Acute Assessment and Plan: 59-year-old lady with underlying history of COPD, back pain admitted on 06/19/2020 with progressive dyspnea and deemed to be secondary to COPD exacerbation and treated for such. Hospital course complicated by acute heroin intoxication resulting in aspiration cavitary pneumonia further complicated by left-sided empyema and pneumothorax, requiring ventilatory support on 07/01, st atus post 2 bronchoscopies, successfully extubated on 07/06/2020, also has been treated for cdif. Patient continues on broad-spectrum antibiotic coverage for anaerobic lung infection. # Sepsis due to cavitary pneumonia s/p bronch on 06/26 and 07/01 and [facility], extubated on 07/06, transfered to floor on 07/07 -She received Levaquin x 1 on 06/19 in ED -she was on Ceftriaxone and Azithromycin for CAP from 06/19 to 06/24 -on 06/24, she was started on Vacomycin, Flagyl and Zosyn -Vanco discontinue d/t toxic level and renal failure -Presently still on IV Zosyn and ID had recommened 3 weeks of treatment -last CXR 07/10, stable -Pulmonology continue to follow # COPD / asthma exacerbation--has completed 10 days of steroid,continue bronchodilators and oxygen as needed wean off O2 # JOSIAH--likely from vancomycin toxicity. Has fully resolved. 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 Has completed PO Vanco, repeat Cdif 07/12 negative, persistent diarrhea likely Abx related, give imodium # hyponatremia 129 on 06/19--likely from SSRI. Level has been normal since. #Hypernatremia--Resolved, sodium 45 #Hypokalemia, K is 3 now, give PO K #Hypomagnesemia--corrected 1.8 # Leukocytosis--she presented on 06/19 with WBC of 45 went irvin to 28 by 06/24, then went back up to 71 on 06/27. This is likely leukomoid reaction from many source including pulmonary infection, steroid and C dif. level is now trending down again at 24.3 today. She was seen by Dr. Starr CML ruled out. WBC is down to 12 now # Anxiety - continue p.r.n. ativan # Back pain-- Fentanyl #Opioid dependenc--Addiction consult tomorrow before d/c #Edema in legs, Pleural effusion--DC IV Lasix to PO Lasix Metabolic alkalosis--Bicab down to 37 with Diamox PT recommends STR, but she categorically rejects going to rehab. Ask ID for final recommendation on Abx for ultimate discharge ANGELA Greene [facility], out of bed ambulate
[2020-07-13] MEDS: Furosemide 40 MG/4 ML VIAL IVPUSH (09:16)
[2020-07-13] MEDS: Loperamide HCl 2 MG CAPSULE PO (09:31)
[2020-07-13] MEDS: Potassium Chloride ER 20 MEQ TAB.ER.PRT 40 MEQ PO ×3 (09:31→20:38)
[2020-07-13] MEDS: fentaNYL 25 MCG PATCH.TD72 TRANSDERMA (10:27)
--- NOTE | 2020-07-13 10:35 | PC.NURSE ---
FENTANYL PATCH REMOVED FROM THE LEFT UPPER CHEST AND NEW FENTANYL PATCH PLACED ON THE RIGHT UPPER CHEST WITH SECOND RN CYNTHIA.
[2020-07-13] MEDS: Enoxaparin Sodium 40 MG/0.4 ML SYRINGE SUBCUT (10:55)
[2020-07-13] MEDS: Furosemide 40 MG TABLET PO (17:09)
--- NOTE | 2020-07-13 19:05 | P.PNNP_ITS ---
Subjective Subjective Date of Service: 07/13/20 Principal diagnosis: Cavitary Pneumonia Lt lower lobe . Interval history: Seen in f/u for respiratory failure d/t pneumonia and has required ICU level of care with mechanical ventilation and intubation. She looks and feels much better but feels somehow congestes Diuresing well and this amd k low and getting replaced Physical Exam Vital Signs: Vital Signs: Last Vital Signs Temp 98.8 F 07/13/20 19:01 Pulse 94 07/13/20 19:01 Resp 18 07/13/20 19:01 BP 142/78 H 07/13/20 19:01 Pulse Ox 96 07/13/20 19:01 Body Mass Index 22.8 Const: Other: General: less anxious Resp:rhonchi bilateral CVS: S1,S2,RRR, 2+edema in feet hao GI: +BS, NT, no distention Skin: No rash Neuro: motor grossly intact Psych: appropriate affect General: cooperative, no acute distress, alert, awake and ill appearing Orientation/consciousness: patient oriented x3 Limitations: No language barrier HENMT: Other: has endotracheal tube in. Head: Yes normal to inspection General nose exam: Abnormal external nose present and Nasal discharge present Mouth: Normal oral and palatal mucosa present Eyes: General: appearance normal, both eyes and all related structures Sclerae: sclerae normal Pupils: Equal, round and reactive pupils present EOM: EOMs intact bilaterally Neck: Neck: Yes normal visual inspection, Yes full ROM, Yes no lymphadenop athy, Yes trachea midline, Yes supple and No no JVD Chest: Other: dull over the left chest. Chest palpation & inspection: normal inspection of the chest and other (Two left-sided chest tubes remain in place) Resp: Other: Breath sounds diminished on long left side with rhonchi appreciated on right. Effort & Inspection: normal respiratory effort and no respiratory distress Auscultation: clear to auscultation bilaterally, crackles, rhonchi, diminished lung sounds and other (Diminished left basilar air movement) Cardio: Other: General: less anxious Resp:rhonchi bilateral CVS: S1,S2,RRR, 2+edema in feet hao GI: +BS, NT, no distention Skin: No rash Neuro: motor grossly intact Psych: appropriate affect Jugular venous distension: no JVD Rate: regular rate Rhythm: regular rhythm Heart sounds: S1 normal heart sound present, S2 normal heart sound present, no gallops, no murmurs and no rubs GI: Inspection: Yes normal to inspection Palpation (GI): Soft to palpation, nontender and Other GI palpation findings present ( Nontender) Percussion: Yes normal to percussion Auscultation: normal bowel sounds : General: Yes no CVA tenderness Back/Spine/Pelvis: Back: no CVA tenderness Thoracic/Lumbar Spine: thoracic and lumbar spine normal to inspection Skin: General skin exam: no rashes or lesions noted Neuro: General: patient oriented x3 and no focal motor deficits Cranial nerves: Yes Equal, round and reactive pupils present Cognition (Neuro): normal cognition Motor exam (neuro): No Asterixis during motor activity present Extrem: General: Yes normal to inspection, Yes no clubbing, cyanosis or edema, Yes no pedal edema, No clubbing, No cyanosis and Yes edema (1+ bilateral) Psych: Other: slightly depressed and discouraged Objective Data Labs CBC & Chem 7: 07/13/20 05:53 07/13/20 05:53 Labs: Laboratory Results - last 24 hr 07/13/20 07/13/20 07/13/20 05:53 05:53 05:53 WBC 12.0 H RBC 2.99 L Hgb 8.5 L Hct 27.0 L MCV 90.3 MCH 28.4 MCHC 31.5 RDW 16.7 H Plt Count 314 D MPV 11.2 Absolute Nucleated RBC 0.000 Nucleated RBC % (auto) 0.0 Sodium 142 Potassium 3.0 L Chloride 98 Carbon Dioxide 37 H Anion Gap 10 L BUN 10 Creatinine 0.66 Estim Creat Clear Calc 74.4 Estimated GFR > 60 Random Glucose 88 Calcium 7.9 L Magnesium 1.8 Microbiology Microbiology Results: Microbiology 07/02/20 Unknown Pleural Fluid Direct Acid Fast Bacilli Smear - Final 07/02/20 01:38 Pleural Fluid Fungal Identification - Preliminary No growth to date. 06/26/20 13:55 Lung Left Lower Lobe Fungal Identification - Preliminary No growth after 1 week. 06/26/20 13:55 Lung Left Lower Lobe Fungal Identification - Preliminary No growth after 1 week. 07/03/20 14:17 Sputum - Suctioned Gram Stain - Final 07/03/20 14:17 Sputum - Suctioned Sputum Culture - Final 07/02/20 01:38 Pleural Fluid Gram Stain - Final 07/02/20 01:38 Pleural Fluid Routine Culture - Final No growth after 2 days 07/02/20 01:38 Pleural Fluid Anaerobic Culture - Final Anaerococcus tetradius 07/01/20 20:30 Sputum - Suctioned Gram Stain - Final 07/01/20 20:30 Sputum - Suctioned Sputum Culture - Final 06/26/20 13:55 Lung Left Lower Lobe Direct Acid Fast Bacilli Smear - Final 06/26/20 13:55 Lung Left Lower Lobe Direct Acid Fast Bacilli Smear - Final 06/24/20 20:36 Blood - Venous Blood Culture - Final No growth after 5 days. 06/24/20 20:36 Blood - Venous Blood Culture - Final No growth after 5 days. 06/24/20 15:11 Stool Stool Culture - Final Aga albicans 06/26/20 13:55 Lung Left Lower Lobe Gram Stain - Final 06/26/20 13:55 Lung Left Lower Lobe Routine Culture - Final No growth after 2 days 06/26/20 13:55 Lung Left Lower Lobe Gram Stain - Final 06/26/20 13:55 Lung Left Lower Lobe Routine Culture - Final No growth after 2 days 06/19/20 04:07 Blood - Venous Blood Culture - Final Coag negative Staphylococcus 06/19/20 04:07 Blood - Venous Blood Culture - Final No growth after 5 days. Assessment & Plan Assessment and plan (1) JOSIAH (acute kidney injury): Problem details: JOSIAH Resolved hyperNA: resolved hypok; d/t duiuretics and get k replaced resp; improving tbfol; improving with diuresis rec; cont to track renal func and uop; avoid ntoixns Status: Acute Time Spent With Patient Time: Total time spent is greater than 50% in coordination of care (as documented) at patient's floor/unit and/or counseling patient:
[2020-07-14] MEDS: Acetaminophen 325 MG TABLET 650 MG PO ×2 (01:59→08:06)
[2020-07-14] MEDS: LORazepam 0.5 MG TABLET PO ×3 (02:50→12:11)
[2020-07-14 03:53] VITALS: BP 136/63; PULSE 80; RESP 18; TEMP 37.3; O2SAT 98
[2020-07-14 05:10] LABS: Hematocrit 26.3 % (37-47); Hemoglobin 8.2 g/dl (12.0-16.0); Mean Corpuscular HGB Conc 31.2 g/dl (31.0-35.0); Mean Corpuscular Volume 92.9 fL (80-98); Platelet Count 330 X10*3/uL (160-400); Red Blood Count 2.83 X10*6/uL (4.20-5.50); Red Cell Distribution Width 17.3 % (11.0-16.0)
[2020-07-14 05:33] LABS: Anion Gap 13 (12-20); Blood Urea Nitrogen 12 mg/dL (9-16); Carbon Dioxide 28 mmol/L (22-29); Chloride 103 mmol/L (96-108); Creatinine Clr Calc Pharmacy 73.3; Estimated Glomerular Filt Rate > 60; Glucose Random 90 mg/dL (60-115); Potassium 4.5 mmol/l (3.3-5.1); Sodium 139 mmol/L (135-145)
[2020-07-14] MEDS: Albuterol/Iprat 2.5/0.5MG 3 ML AMPUL.NEB INHALE (07:08)
[2020-07-14 07:12] VITALS: PULSE 83; O2SAT 98
[2020-07-14 07:54] VITALS: BP 143/68; PULSE 80; RESP 18; TEMP 36.8; O2SAT 99
[2020-07-14] MEDS: Potassium Chloride ER 20 MEQ TAB.ER.PRT 40 MEQ PO (08:07)
[2020-07-14] MEDS: Furosemide 40 MG TABLET PO (08:07)
[2020-07-14] MEDS: Nystatin Powder 15 GM BOTTLE 1 APPL TOPICAL (08:08)
[2020-07-14] MEDS: 0.9 % Sodium Chloride Flush 3 ML SYRINGE IVFLUSH (08:08)
--- NOTE | 2020-07-14 10:45 | MHC.SLORD ---
FLUID DESIGNER arrived for PO trials, but patient was receiving therapy with another clinician. Per RN, patient is tolerating current diet GROUND/MECH ALTERED (NDD2) solids and NECTAR THICK liquids. FLUID DESIGNER to follow up tomorrow morning. Name: Jessica Pollard Date of : 1960 Age: 59 Date of Registration: 06/19/20 Speech Language Pathology Order Status:
[2020-07-14 10:54] VITALS: O2SAT 93
--- NOTE | 2020-07-14 11:02 | MHC.CM.PN ---
PER ROUNDS PT LIKELY TO BE DCD TODAY MD WOULD LIKEVNA FOLLOW, UP F2F REQUESTERD
[2020-07-14 11:07] VITALS: BP 132/61; PULSE 95; RESP 18; TEMP 36.7; O2SAT 97
--- NOTE | 2020-07-14 11:20 | MHC.CLN ---
F/U PO INTAKE IMPROVED 50-75% DIET RX: GROUND WITH NT LIQ-APPROPRIATE RECEIVING ENSURE BID TO INCREASE KCALS AND ENSURE PUDDING WITH MEALS MONITOR PO INTAKE CLOSELY
--- NOTE | 2020-07-14 11:21 | MHC.CM.PN ---
MET WITH PT WHO WANTS TO G HOME WITH [facility] FOR HOME PHYSICAL THERAPY SHE HAS DECLINED STR PER PHYSICAL THERAPIES RECPMMENDATION
--- NOTE | 2020-07-14 11:27 | W.MHC.F2F ---
Service Date Service Date: 07/14/20 Reasons for Services Homebound: Leaving the home is medically contraindicated at this time without the asist of a device and/or another person due th the listed conditions above and below. Certification: Based on the above findings, I certify that this patient is confined to the home and needs intermittent fdc care, physical therapy and/or speech therapy, or continues to need occupational therapy. The patient is under my care, and I have initiated the establishment of the plan of care. The patient will be followed by a physician who will periodically review the plan of care.
--- NOTE | 2020-07-14 11:27 | PM.DS ---
DS: Providers Provider Date of admission: 06/19/20 06:26 Primary care physician: Giacomo Broderick MD Consults: 06/19/20 09:27 Consult to Nephrology Routine Consulting Provider: [facility] Reason for consultation: Hypionatremia Has provider been notified: No 06/24/20 10:06 Consult to Pulmonology Routine Consulting Provider: Jonn Lenz Reason for consultation: acute resp failure , copd excerebation/pneumonia Has provider been notified: No 06/24/20 17:17 Consult to Infectious Diseases Routine Consulting Provider: Natali Harper Reason for consultation: ? acute respiratory failure sec pneumonia /?lung abcess Has provider been notified: No 06/27/20 11:08 Consult to Hematology / Oncology Routine Consulting Provider: Rody Starr Reason for consultation: Marked leukocytosis ? CML or leukomoid reaction 07/01/20 15:06 Consult to Infectious Diseases Routine Consulting Provider: Natali Harper Reason for consultation: 2 fold--LLL cavitary pneumonia and addiction 07/01/20 22:45 Consult to Thoracic Surgery Stat Consulting Provider: Gatito Grossman Reason for consultation: large volume hydropneumothorax with mass effect DS: Diagnosis Discharge Diagnosis (1) JOSIAH (acute kidney injury): Status: Acute Problem details: JOSIAH Resolved hyperNA: resolved hypok; d/t duiuretics and get k replaced resp; improving tbfol; improving with diuresis rec; cont to track renal func and uop; avoid ntoixns (2) Pleural effusion: Status: Acute (3) Acute hypernatremia: Status: Acute (4) Hydropneumothorax: Status: Acute (5) Pneumothorax on left: Status: Acute (6) Atelectasis of left lung: Status: Acute Problem details: S/P intubation , with partial expansion of lt lung . She is improving Day 10 Zosyn and Flagyl po Vancomycin day 3 (7) Clostridioides difficile infection: Status: Acute Problem details: Continue po Vancomycin (8) Leukocytosis: Status: Acute (9) Cavitary pneumonia: Status: Acute Problem details: CONTINUE THE CURRENT ANTIBIOTICS . (10) Hyponatremia: Status: Acute Problem details: REsolved (11) Leukocytosis: Status: Acute (12) Anxiety: Status: Acute (13) Asthma with COPD (chronic obstructive pulmonary disease): Status: Acute (14) Sepsis: Status: Acute (15) COPD exacerbation: Status: Acute (16) Pneumonia: Status: Acute DS: Medications Discharge Medications Home Medications: Home Medications Medication Instructions Recorded Confirmed Flovent HFA 2 puff INHALATION BID 06/19/20 06/19/20 Incruse Ellipta 62.5 mcg INHALATION DAILY 06/19/20 06/19/20 alprazolam 1 mg PO BID PRN 06/19/20 06/19/20 ibuprofen 600 mg PO TID 06/19/20 06/19/20 ipratropium-albuterol 3 ml INHALATION NEEDED 06/19/20 06/19/20 sertraline 100 mg PO DAILY 06/19/20 06/19/20 Previous Rx's Medication Instructions Recorded albuterol sulfate 90 mcg/actuation 2 puff PO Q2H PRN #8.5 g 05/27/20 aerosol inhaler furosemide 40 mg PO DAILY #30 tab 07/14/20 DS: Summary Hospital Course Hospital Course: Patient had prolonged hospital stay, for fall course please see complete medical record. In summary: Patient was admitted for sepsis due to pneumonia and COPD exacerbation. She was given steroids, bronchodilators, antibiotics. Her symptoms improved to the point of discharge. However, on day of planned discharge patient was found to be unresponsive and apneic. She was given Narcan and responded. It was discovered that she had done heroin in bathroom prior to planned discharge. Due to that event, patient then had aspiration pneumonia complicated by acute on chronic diastolic CHF. She was given course of IV Zosyn and diuresed. Course was complicated by acute hypoxic and hypercapnic respiratory failure requiring intubation. Patient was able to be extubated. She is now on room air. Feeling better. She will be discharged home. Case was reviewed with the actions disease to stated patient did not need any further antibiotics. She will be discharged on new Lasix 40 mg daily. She will be given home PT. She was not interested in pursuing short-term rehab. Time Spent with Patient Time attestation: Total time spent providing and/or coordinating discharge services: Physical Exam Vital Signs: Vital Signs: Last Vital Signs Temp 98.0 F 07/14/20 11:07 Pulse 95 07/14/20 11:07 Resp 18 07/14/20 11:07 BP 132/61 07/14/20 11:07 Pulse Ox 97 07/14/20 11:07 Body Mass Index 22.8 General: AO X 3, no acute distress Resp: CTA bilateral CVS: S1,S2,RRR GI: soft, non tender, non distended Neuro: motor grossly intact Psych: appropriate affect DS: Data Data Completed and Pending Completed studies during hospitalization [Text1]: Pending at discharge 06/26/20 15:05 Cytology [PTH] Stat 06/26/20 15:11 Surgical [PTH] Stat Labs on day of discharge: 06/19/20 03:54 ECG 12 lead EKG Stat Continuous Cardiac Monitoring NOW EKG Documentation DIRECTED XR chest 1V Stat 0.9 % Sodium Chloride [Ns] 1,700.97 ml IVCONT 1,700.97 mls/hr Albuterol Sulfate (0.083%) [Ventolin (0.083%)] 7.5 mg INHALE ONCE ONE levoFLOXacin/D5W [Levaquin] 750 mg in 150 ml IV ONCE methylPREDNISolone Sod Succ/PF [SOLU-MedroL] 60 mg IVPUSH ONCE ONE 06/19/20 04:05 B Type Natriuretic Peptide Stat Basic Metabolic Panel Stat Complete Blood Count Man Dif Stat Lactic Acid Stat Lipase Stat Liver Panel Stat Partial Thromboplastin Time Stat Prothrombin Time INR Stat SARS-CoV2/FLU/RSV Stat Troponin-I High Sensitivity Stat Acetaminophen [Tylenol] 650 mg PO ONCE ONE 06/19/20 04:07 Blood Culture X2 [BC] Stat 06/19/20 05:13 ECG 12 lead EKG Stat XR chest 1V Stat Albuterol Sulfate (0.083%) [Ventolin (0.083%)] 5 mg INHALE ONCE ONE 06/19/20 05:14 Magnesium Sulfate/H2O 2 gm in 50 ml IV ONCE Morphine Sulfate 4 mg IVPUSH ONCE ONE 06/19/20 05:34 Add Laboratory Test Stat 06/19/20 05:42 Ketorolac Tromethamine [Toradol] 30 mg IVPUSH ONCE ONE ondansetron HCL [Zofran] 4 mg IVPUSH ONCE ONE 06/19/20 06:19 Nitroglycerin [Nitrostat] 0.4 mg SUBLINGUAL ONCE ONE 06/19/20 06:20 Troponin-I High Sensitivity Stat 06/19/20 06:21 Transfer Order Routine 06/19/20 06:45 0.9 % Sodium Chloride [Ns] 1,000 ml IVCONT 80 mls/hr 06/19/20 07:08 fentaNYL citrate/PF [Sublimaze] 50 mcg IVPUSH ONCE ONE 06/19/20 09:22 ALPRAZolam [Xanax] 1 mg PO ONCE ONE 06/19/20 Breakfast Regular Diet 06/19/20 11:55 ALPRAZolam [Xanax] 1 mg PO BID PRN Albuterol/Iprat 2.5/0.5MG 3 ML [Duoneb] 3 ml INHALE Q2H PRN Albuterol/Iprat 2.5/0.5MG 3 ML [Duoneb] 3 ml INHALE RQ6H WHILE AWAKE Azithromycin [Zithromax] 500 mg PO Q24H Sertraline HCL [Zoloft] 100 mg PO DAILY cefTRIAXone sodium [Rocephin] 1 gm 0.9 % Sodium Chloride [Ns] 50 ml IV Q24H methylPREDNISolone Sod Succ/PF [SOLU-MedroL] 40 mg IVPUSH Q12H ondansetron HCL [Zofran] 4 mg IVPUSH Q8H PRN 06/19/20 11:55 Ambulate QSHIFT WHILE AWAKE Cont. Telemetry w/Vital Sign limit Q4HR Intake and Output Q8HR Vital Signs Q4HR 06/19/20 12:19 Ketorolac Tromethamine [Toradol] 15 mg IVPUSH Q6H PRN 06/19/20 13:00 Basic Metabolic Panel Routine Complete Blood Count Auto Diff Routine SLIDE REVIEW Routine 06/19/20 13:17 cefTRIAXone sodium [Rocephin] 1 gm .ROUTE .STK-MED ONE 06/20/20 04:52 Basic Metabolic Panel Routine Complete Blood Count Auto Diff Routine SLIDE REVIEW Routine 06/20/20 05:26 Dextrose 50 % [D50] 25 gm IVPUSH ONCE ONE 06/20/20 11:07 cefTRIAXone sodium [Rocephin] 1 gm .ROUTE .STK-MED ONE 06/20/20 11:41 Transfer Order Routine 06/21/20 03:55 guaiFENesin DM 100/10/5 ML [Robitussin DM 100/10/5 ML] 5 ml PO Q6H PRN 06/21/20 06:57 Basic Metabolic Panel DAILY@0600 Complete Blood Count no Diff DAILY@0600 06/21/20 09:02 oxyCODONE HCl Immed Release [Roxicodone] 5 mg PO Q6H PRN 06/21/20 12:25 cefTRIAXone sodium [Rocephin] 1 gm .ROUTE .STK-MED ONE 06/21/20 14:57 guaiFEN/Codeine SF 200/20/10ML [Robitussin AC 200/20/10ML] 5 ml PO ONCE ONE 06/22/20 07:21 Complete Blood Count no Diff DAILY@0600 06/22/20 11:21 cefTRIAXone sodium [Rocephin] 1 gm .ROUTE .STK-MED ONE 06/22/20 12:58 guaiFEN/Codeine SF 200/20/10ML [Robitussin AC 200/20/10ML] 5 ml PO Q4H PRN 06/22/20 13:22 Glucose, Whole Blood Routine 06/22/20 13:38 ABG (RT) ONCE 06/22/20 13:39 Arterial Blood Gas Routine 06/22/20 13:50 Transfer Order Routine 06/22/20 14:52 ECG 12 lead EKG Urgent XR chest 1V Urgent 06/22/20 18:09 Drug Screen Urine Stat 06/22/20 18:42 Neuro checks Q4HR 06/23/20 ECG 12 lead EKG Urgent XR chest 1V Urgent 06/23/20 00:18 guaiFENesin 100 MG/5 ML [Robitussin 100 MG/5 ML] 5 ml PO Q6H PRN 06/23/20 08:34 ABG (RT) ONCE 06/23/20 10:05 Arterial Blood Gas Routine 06/23/20 10:47 cefTRIAXone sodium [Rocephin] 1 gm .ROUTE .STK-MED ONE 06/23/20 11:30 guaiFENesin 100 MG/5 ML [Robitussin 100 MG/5 ML] 5 ml PO Q6H 06/23/20 12:15 Aspirin Enteric Coated [Ecotrin] 81 mg PO ONCE ONE 06/23/20 12:17 Morphine Sulfate 0.5 mg IVPUSH ONCE ONE 06/23/20 12:54 Troponin-I High Sensitivity Urgent 06/23/20 18:57 guaiFEN/Codeine SF 200/20/10ML [Robitussin AC 200/20/10ML] 10 ml PO Q4H PRN 06/24/20 CT angio chest PE protocol Routine 06/24/20 05:27 Basic Metabolic Panel DAILY@0600 Complete Blood Count no Diff DAILY@0600 06/24/20 06:30 Omeprazole [PriLOSEC] 20 mg PO DAILY@0630 06/24/20 10:05 Albuterol/Iprat 2.5/0.5MG 3 ML [Duoneb] 1.5 ml INHALE ONCE ONE traZODone HCL [Desyrel] 25 mg PO ONCE ONE 06/24/20 10:14 cloNIDine HCL [Catapres] 0.1 mg PO BID PRN 06/24/20 10:15 ABG (RT) ONCE 06/24/20 10:25 Arterial Blood Gas Routine 06/24/20 10:48 cefTRIAXone sodium [Rocephin] 1 gm .ROUTE .STK-MED ONE 06/24/20 11:07 ABG (RT) ONCE 06/24/20 11:50 Arterial Blood Gas Routine 06/24/20 14:07 iohexoL 350 MG/ML [Omnipaque 350 MG/ML] 65 ml IV ONCE ONE 06/24/20 14:30 ondansetron HCL [Zofran] 4 mg IVPUSH Q6H PRN 06/24/20 15:11 CDiff with Reflex to PCR Urgent Leukocytes Stool Qualitative Urgent Stool Culture Urgent 06/24/20 15:59 HIV Ab/Ag Routine 06/24/20 16:00 Piperacillin Sodium/Tazobactam [Zosyn] 3.375 gm 0.9 % Sodium Chloride [Ns] 50 ml IV Q6H 06/24/20 16:07 Piperacillin Sodium/Tazobactam [Zosyn] 3.375 gm IV .STK-MED ONE 06/24/20 18:01 Communication Order NOW 06/24/20 18:15 vancomycin HCL [Vancocin] 125 mg PO Q6H 06/24/20 20:00 metroNIDAZOLE/NS [Flagyl] 500 mg in 100 ml IV Q8H 06/24/20 20:30 0.9 % Sodium Chloride [Ns] 1,000 ml IVCONT 70 mls/hr 06/24/20 20:36 Blood Culture X2 [BC] Urgent 06/24/20 20:55 Piperacillin Sodium/Tazobactam [Zosyn] 3.375 gm IV .STK-MED ONE vancomycin HCL 750 mg IV .STK-MED ONE 06/24/20 22:00 vancomycin HCL 750 mg 0.9 % Sodium Chloride [Ns] 250 ml IV Q12H 06/25/20 01:03 Ibuprofen [Motrin] 600 mg PO ONCE ONE 06/25/20 03:07 Piperacillin Sodium/Tazobactam [Zosyn] 3.375 gm IV .STK-MED ONE 06/25/20 11:09 Piperacillin Sodium/Tazobactam [Zosyn] 3.375 gm IV .STK-MED ONE vancomycin HCL 750 mg IV .STK-MED ONE 06/25/20 Lunch NPO Diet 06/25/20 16:55 Piperacillin Sodium/Tazobactam [Zosyn] 3.375 gm IV .STK-MED ONE 06/25/20 18:30 0.9 % Sodium Chloride [Ns] 500 ml IV 500 mls/hr 06/25/20 Dinner NPO Diet 06/25/20 19:45 0.9 % Sodium Chloride [Ns] 1,000 ml IVCONT 70 mls/hr 0.9 % Sodium Chloride [Ns] 1,000 ml IVCONT 70 mls/hr 06/25/20 22:01 Piperacillin Sodium/Tazobactam [Zosyn] 3.375 gm IV .STK-MED ONE 06/25/20 22:50 vancomycin HCL 750 mg IV .STK-MED ONE 06/26/20 03:55 ECG 12 lead EKG Urgent 06/26/20 04:05 Piperacillin Sodium/Tazobactam [Zosyn] 3.375 gm IV .STK-MED ONE 06/26/20 05:34 Basic Metabolic Panel DAILY Basic Metabolic Panel DAILY@0600 Complete Blood Count no Diff DAILY@0600 06/26/20 08:56 Vancomycin Trough Routine 06/26/20 11:00 vancomycin HCL 1,000 mg 0.9 % Sodium Chloride [Ns] 250 ml IV Q12H 06/26/20 11:39 Piperacillin Sodium/Tazobactam [Zosyn] 3.375 gm IV .STK-MED ONE 06/26/20 12:50 propofoL [Diprivan] 200 mg IVPUSH .STK-MED ONE 06/26/20 12:51 Glycopyrrolate [Robinul] 0.2 mg .ROUTE .STK-MED ONE dexAMETHasone sod phosphate [Decadron] 4 mg .ROUTE .STK-MED ONE ondansetron HCL [Zofran] 4 mg .ROUTE .STK-MED ONE 06/26/20 12:55 Ketamine HCl/NS 50 mg IVPUSH .STK-MED ONE Midazolam HCl/PF [Versed] 2 mg .ROUTE .STK-MED ONE 06/26/20 12:59 EPINEPHrine [Adrenalin] 1 mg .ROUTE .STK-MED ONE Lidocaine HCl 2 % [Xylocaine 2 %] 20 ml .ROUTE .STK-MED ONE 06/26/20 13:04 Continuous pulse oximetry CONT Oxygen administration Nasal Cannula 3 lpm Vital Signs Q4HR Vital Signs Q5MIN 06/26/20 13:15 Lactated Ringers [Lr] 1,000 ml IVCONT 100 mls/hr 06/26/20 13:18 Albuterol/Iprat 2.5/0.5MG 3 ML [Duoneb] 3 ml INHALE ONCE ONE 06/26/20 13:27 Albuterol/Iprat 2.5/0.5MG 3 ML [Duoneb] 3 ml INHALE .STK-MED ONE 06/26/20 13:55 Routine Culture w Gram Stain Routine Routine Culture w Gram Stain Stat 06/26/20 14:23 Sugammadex Sodium [Bridion] 200 mg IVPUSH .STK-MED ONE 06/26/20 15:05 Cytology [PTH] Stat 06/26/20 15:11 Surgical [PTH] Stat 06/26/20 15:58 Piperacillin Sodium/Tazobactam [Zosyn] 3.375 gm IV .STK-MED ONE 06/26/20 Dinner Regular Diet 06/26/20 20:50 Piperacillin Sodium/Tazobactam [Zosyn] 3.375 gm IV .STK-MED ONE 06/26/20 22:33 vancomycin HCL 1,000 mg .ROUTE .STK-MED ONE 06/26/20 22:36 vancomycin HCL 1,000 mg .ROUTE .STK-MED ONE 06/27/20 02:56 Piperacillin Sodium/Tazobactam [Zosyn] 3.375 gm IV .STK-MED ONE 06/27/20 02:58 Piperacillin Sodium/Tazobactam [Zosyn] 3.375 gm IV .STK-MED ONE 06/27/20 05:21 Basic Metabolic Panel DAILY@0600 Complete Blood Count no Diff DAILY@0600 Manual Differential Routine 06/27/20 10:11 Piperacillin Sodium/Tazobactam [Zosyn] 3.375 gm IV .STK-MED ONE vancomycin HCL 1,000 mg .ROUTE .STK-MED ONE 06/27/20 11:08 Morphine Sulfate 2 mg IVPUSH Q4H PRN 06/27/20 12:14 BCR/ABL Trans 9,22 [place],Bl Routine 06/27/20 13:59 Add Laboratory Test Routine 06/27/20 16:41 Piperacillin Sodium/Tazobactam [Zosyn] 3.375 gm IV .STK-MED ONE 06/27/20 22:42 Piperacillin Sodium/Tazobactam [Zosyn] 3.375 gm IV .STK-MED ONE vancomycin HCL 1,000 mg .ROUTE .STK-MED ONE 06/28/20 03:47 Piperacillin Sodium/Tazobactam [Zosyn] 3.375 gm IV .STK-MED ONE 06/28/20 08:50 Piperacillin Sodium/Tazobactam [Zosyn] 3.375 gm IV .STK-MED ONE 06/28/20 10:11 Vancomycin Trough Stat 06/28/20 10:43 vancomycin HCL 1,000 mg .ROUTE .STK-MED ONE 06/28/20 11:25 ALPRAZolam [Xanax] 1 mg PO BID PRN 06/28/20 12:59 Basic Metabolic Panel Routine Complete Blood Count no Diff Routine 06/28/20 15:06 Piperacillin Sodium/Tazobactam [Zosyn] 3.375 gm IV .STK-MED ONE 06/28/20 22:07 Piperacillin Sodium/Tazobactam [Zosyn] 3.375 gm IV .STK-MED ONE 06/29/20 02:56 Piperacillin Sodium/Tazobactam [Zosyn] 3.375 gm IV .STK-MED ONE 06/29/20 07:50 Vancomycin Random Stat 06/29/20 08:24 Basic Metabolic Panel Routine Complete Blood Count no Diff Routine 06/29/20 10:00 Piperacillin Sodium/Tazobactam [Zosyn] 3.375 gm IV .STK-MED ONE vancomycin HCL 500 mg 0.9 % Sodium Chloride [Ns] 100 ml IV Q12H 06/29/20 10:04 vancomycin HCL 500 mg IV .STK-MED ONE 06/29/20 12:59 oxyCODONE HCl Immed Release [Roxicodone] 5 mg PO Q6H PRN 06/29/20 15:39 Piperacillin Sodium/Tazobactam [Zosyn] 3.375 gm IV .STK-MED ONE 06/29/20 20:03 Vancomycin Random Routine 06/29/20 22:38 Piperacillin Sodium/Tazobactam [Zosyn] 3.375 gm IV .STK-MED ONE 06/30/20 XR chest 1V Stat 06/30/20 04:03 Piperacillin Sodium/Tazobactam [Zosyn] 3.375 gm IV .STK-MED ONE 06/30/20 05:22 Basic Metabolic Panel DAILY@0600 Complete Blood Count no Diff DAILY@0600 06/30/20 09:13 Piperacillin Sodium/Tazobactam [Zosyn] 3.375 gm IV .STK-MED ONE 06/30/20 11:08 Incentive Spirometry DAILY 06/30/20 13:00 0.9 % Sodium Chloride [Ns] 1,000 ml IVCONT 100 mls/hr 06/30/20 15:34 Piperacillin Sodium/Tazobactam [Zosyn] 3.375 gm IV .STK-MED ONE 06/30/20 21:00 guaiFENesin LA [Mucinex] 1,200 mg PO BID 06/30/20 22:08 Piperacillin Sodium/Tazobactam [Zosyn] 3.375 gm IV .STK-MED ONE 07/01/20 CT chest wo con Stat 07/01/20 05:01 Piperacillin Sodium/Tazobactam [Zosyn] 3.375 gm IV .STK-MED ONE 07/01/20 05:26 Basic Metabolic Panel Routine Complete Blood Count no Diff DAILY@0600 07/01/20 09:09 Piperacillin Sodium/Tazobactam [Zosyn] 3.375 gm IV .STK-MED ONE 07/01/20 11:10 propofoL [Diprivan] 200 mg IVPUSH .STK-MED ONE 07/01/20 11:13 Lidocaine HCl 2 % MPF [Xylocaine 2 % MPF] 5 ml .ROUTE .STK-MED ONE dexAMETHasone sod phosphate [Decadron] 4 mg .ROUTE .STK-MED ONE ondansetron HCL [Zofran] 4 mg .ROUTE .STK-MED ONE 07/01/20 11:15 Midazolam HCl/PF [Versed] 2 mg .ROUTE .STK-MED ONE fentaNYL citrate/PF [Sublimaze] 50 mcg .ROUTE .STK-MED ONE 07/01/20 11:36 EPINEPHrine [Adrenalin] 1 mg .ROUTE .STK-MED ONE Lidocaine HCl 2 % [Xylocaine 2 %] 20 ml .ROUTE .STK-MED ONE 07/01/20 11:50 Arterial Blood Gas Routine 07/01/20 12:19 Transfer Order Routine 07/01/20 12:45 propofoL [Diprivan] 200 mg IVPUSH .STK-MED ONE propofoL [Diprivan] 0 mg in 0 ml IVCONT As directed 07/01/20 12:49 Naloxone HCl [Narcan] 0.4 mg .ROUTE .STK-MED ONE 07/01/20 13:17 Naloxone HCl [Narcan] 0.2 mg SUBCUT Q5M PRN 07/01/20 14:19 Arterial Blood Gas Routine 07/01/20 14:51 RT BiPAP/CPAP CONT 07/01/20 16:00 XR chest 1V Routine 07/01/20 16:36 Venous Blood Gas Stat 07/01/20 17:34 Piperacillin Sodium/Tazobactam [Zosyn] 3.375 gm IV .STK-MED ONE 07/01/20 18:35 NON-Behavioral Restraint Q24H Non-behavioral order assessment ONCE 07/01/20 19:04 propofoL [Diprivan] 1,000 mg in 100 ml IVCONT As directed 07/01/20 19:12 propofoL [Diprivan] 1,000 mg in 100 ml IVCONT As directed 07/01/20 19:33 Phenylephrine HCL 10 mg .ROUTE .STK-MED ONE 07/01/20 19:48 Respiratory Aerosol Treatment .as directed 07/01/20 19:55 XR chest 1V Stat 07/01/20 19:57 Albuterol/Iprat 2.5/0.5MG 3 ML [Duoneb] 3 ml INHALE RQ4H PRN 07/01/20 20:15 0.9 % Sodium Chloride [Ns] 250 ml Phenylephrine HCL 20 mg IVCONT Per Protocol mcg/kg/min propofoL [Diprivan] 1,000 mg in 100 ml IVCONT Per Protocol mcg/kg/min 07/01/20 20:30 Sputum Cult + Gram stain Stat 07/01/20 20:49 CXR [XR chest 1V] Stat 07/01/20 21:31 Phenylephrine HCL 10 mg .ROUTE .STK-MED ONE Piperacillin Sodium/Tazobactam [Zosyn] 3.375 gm IV .STK-MED ONE 07/01/20 21:41 Insert/maintain urinary catheter NOW 07/01/20 21:45 Chlorhexidine Gluc Oral Rinse [Peridex] 15 ml BUCCAL TID 07/01/20 23:38 Complete Blood Count Auto Diff Stat SLIDE REVIEW Stat 07/01/20 23:43 Dietitian / Nutrition Consult .Routine 07/01/20 23:49 Venous Blood Gas Stat 07/01/20 23:55 Rocuronium [place] [Zemuron] 30 mg IVPUSH ONCE ONE 07/02/20 XR chest 1V Stat 07/02/20 00:00 Acetylcysteine 10 % [Mucomyst 10 %] 400 mg INHALE RQ6H 07/02/20 00:15 Norepinephrine Bitartrate/NS [Levophed] 8 mg in 250 ml IVCONT Per Protocol mcg/kg/min 07/02/20 00:39 Lidocaine HCl 2 % MPF [Xylocaine 2 % MPF] 5 ml SUBCUT ONCE ONE fentaNYL citrate/PF [Sublimaze] 50 mcg IVPUSH ONCE ONE 07/02/20 00:52 Lidocaine HCl 2 % MPF [Xylocaine 2 % MPF] 5 ml .ROUTE .STK-MED ONE 07/02/20 01:29 XR chest 1V Stat Lidocaine HCl 2 % MPF [Xylocaine 2 % MPF] 5 ml SUBCUT ONCE ONE fentaNYL citrate/PF [Sublimaze] 50 mcg IVPUSH ONCE ONE 07/02/20 01:38 Albumin Pleural Fluid Stat Amylase Pleural Fluid Stat Cell Count w Diff Pleural Fld Stat Glucose Pleural Fluid Stat LDH Pleural Fluid Stat Total Protein Pleural Fluid Stat pH Pleural Fluid Stat Anaerobic Culture (incl CULT) Stat Routine Culture w Gram Stain Stat 07/02/20 04:33 Basic Metabolic Panel Routine Complete Blood Count Auto Diff Routine Magnesium Routine PTT [Partial Thromboplastin Time] Routine Phosphorus Routine Prothrombin Time INR Routine Venous Blood Gas Stat 07/02/20 05:09 Piperacillin Sodium/Tazobactam [Zosyn] 3.375 gm IV .STK-MED ONE 07/02/20 06:30 Pantoprazole Sodium [Protonix] 40 mg IVPUSH DAILY@0630 07/02/20 07:00 vancomycin HCL Oral Solution [Firvanq Oral Solution] 125 mg PO Q6H 07/02/20 09:50 fentaNYL citrate/PF [Sublimaze] 100 mcg .ROUTE .STK-MED ONE 07/02/20 09:55 fentaNYL citrate/PF [Sublimaze] 100 mcg IVPUSH ONCE ONE 07/02/20 10:30 CXR [XR chest 1V] Stat 07/02/20 10:43 Piperacillin Sodium/Tazobactam [Zosyn] 3.375 gm IV .STK-MED ONE 07/02/20 16:03 Piperacillin Sodium/Tazobactam [Zosyn] 3.375 gm IV .STK-MED ONE 07/02/20 18:45 Chest Tube Management Q4HR 07/02/20 22:50 Piperacillin Sodium/Tazobactam [Zosyn] 3.375 gm IV .STK-MED ONE 07/03/20 01:45 NON-Behavioral Restraint Q24H Non-behavioral order assessment ONCE 07/03/20 01:48 Ventilator Assessment/Vent Bundle Q4HR Vent Settings Q4HR 07/03/20 03:14 Piperacillin Sodium/Tazobactam [Zosyn] 3.375 gm IV .STK-MED ONE 07/03/20 04:44 Basic Metabolic Panel Routine Complete Blood Count Auto Diff Routine Magnesium Routine PTT [Partial Thromboplastin Time] Routine Phosphorus Routine Prothrombin Time INR Routine Venous Blood Gas Routine 07/03/20 07:15 KCl 20 mEq in 0.45% Sod 20 meq in 1,000 ml IVCONT 80 mls/hr 07/03/20 07:38 XR chest 1V Stat 07/03/20 10:45 Piperacillin Sodium/Tazobactam [Zosyn] 3.375 gm IV .STK-MED ONE 07/03/20 14:17 Sputum Cult + Gram stain Routine 07/03/20 17:15 Piperacillin Sodium/Tazobactam [Zosyn] 3.375 gm IV .STK-MED ONE 07/03/20 20:30 Complete Blood Count Auto Diff Stat 07/03/20 21:32 Piperacillin Sodium/Tazobactam [Zosyn] 3.375 gm IV .STK-MED ONE 07/04/20 XR chest 1V Stat 07/04/20 04:15 Piperacillin Sodium/Tazobactam [Zosyn] 3.375 gm IV .STK-MED ONE 07/04/20 05:20 Basic Metabolic Panel Routine Complete Blood Count Auto Diff Routine Magnesium Routine PTT [Partial Thromboplastin Time] Routine Phosphorus Routine Prothrombin Time INR Routine Venous Blood Gas Routine 07/04/20 07:13 Tube Feeding Assessment Q4HR 07/04/20 07:42 Red Blood Cells Routine Type and Screen Routine 07/04/20 09:00 XR chest 1V Stat 07/04/20 09:38 Piperacillin Sodium/Tazobactam [Zosyn] 3.375 gm IV .STK-MED ONE 07/04/20 Breakfast Tube Feeding Diet 07/04/20 14:12 NON-Behavioral Restraint Q24H Non-behavioral order assessment ONCE 07/04/20 15:51 Piperacillin Sodium/Tazobactam [Zosyn] 3.375 gm IV .STK-MED ONE 07/04/20 16:24 Venous Blood Gas Routine 07/04/20 16:30 XR chest 1V Routine 07/04/20 20:00 Albuterol/Iprat 2.5/0.5MG 3 ML [Duoneb] 3 ml INHALE RQ4H 07/05/20 XR chest 1V Stat XR chest 1V Stat 07/05/20 00:57 Piperacillin Sodium/Tazobactam [Zosyn] 3.375 gm IV .STK-MED ONE 07/05/20 03:31 Piperacillin Sodium/Tazobactam [Zosyn] 3.375 gm IV .STK-MED ONE 07/05/20 04:50 Basic Metabolic Panel Routine Complete Blood Count Auto Diff Routine Magnesium Routine PTT [Partial Thromboplastin Time] Routine Phosphorus Routine Prothrombin Time INR Routine Venous Blood Gas Routine 07/05/20 05:00 XR chest 1V Routine 07/05/20 08:00 metroNIDAZOLE/NS [Flagyl] 500 mg in 100 ml IV Q6H 07/05/20 10:00 Piperacillin Sodium/Tazobactam [Zosyn] 4.5 gm 0.9 % Sodium Chloride [Ns] 50 ml IV Q6H 07/05/20 10:35 Piperacillin Sodium/Tazobactam [Zosyn] 3.375 gm IV .STK-MED ONE 07/05/20 11:00 Piperacillin Sodium/Tazobactam [Zosyn] 4.5 gm 0.9 % Sodium Chloride [Ns] 50 ml IV Q6H 07/05/20 11:09 Piperacillin Sodium/Tazobactam [Zosyn] 4.5 gm IV .STK-MED ONE 07/05/20 16:01 Basic Metabolic Panel Stat 07/05/20 16:59 ECG 12 lead EKG Routine 07/05/20 17:02 Dextrose 5 % [D5w] 500 ml IVCONT 250 mls/hr 07/05/20 17:10 Piperacillin Sodium/Tazobactam [Zosyn] 4.5 gm IV .STK-MED ONE 07/05/20 18:39 Non-behavioral order assessment Q2HR 07/05/20 21:14 Piperacillin Sodium/Tazobactam [Zosyn] 4.5 gm IV .STK-MED ONE 07/06/20 XR chest 1V Stat 07/06/20 02:45 Midazolam HCl/NS [Versed] 50 mg in 50 ml IVCONT 2 mg/hr 07/06/20 03:47 Piperacillin Sodium/Tazobactam [Zosyn] 4.5 gm IV .STK-MED ONE 07/06/20 05:20 Basic Metabolic Panel Routine Complete Blood Count Auto Diff Routine Magnesium Routine PTT [Partial Thromboplastin Time] Routine Phosphorus Routine Prothrombin Time INR Routine Venous Blood Gas Routine 07/06/20 06:30 Pantoprazole Sodium [Protonix] 40 mg IVPUSH DAILY@0630 07/06/20 07:30 Fluconazole in NaCl,Iso-Osm [Diflucan] 200 mg in 100 ml IV Q24H 07/06/20 12:01 Piperacillin Sodium/Tazobactam [Zosyn] 4.5 gm IV .STK-MED ONE 07/06/20 18:10 Piperacillin Sodium/Tazobactam [Zosyn] 4.5 gm IV .STK-MED ONE 07/06/20 19:39 LORazepam [Ativan] 0.5 mg IVPUSH ONCE ONE 07/06/20 19:43 LORazepam [Ativan] 2 mg .ROUTE .STK-MED ONE 07/06/20 23:47 Piperacillin Sodium/Tazobactam [Zosyn] 4.5 gm IV .STK-MED ONE 07/07/20 XR chest 1V Stat 07/07/20 01:03 LORazepam [Ativan] 0.5 mg IVPUSH ONCE ONE 07/07/20 01:05 LORazepam [Ativan] 2 mg .ROUTE .STK-MED ONE 07/07/20 04:39 Albumin Level Routine Basic Metabolic Panel Routine Complete Blood Count Auto Diff Routine Magnesium Routine PTT [Partial Thromboplastin Time] Routine Phosphorus Routine Prothrombin Time INR Routine SLIDE REVIEW Routine Venous Blood Gas Routine 07/07/20 05:24 Piperacillin Sodium/Tazobactam [Zosyn] 4.5 gm IV .STK-MED ONE 07/07/20 06:15 KCl 20 mEq in 5% Dex/0.45% Sod 20 meq in 1,000 ml IVCONT 100 mls/hr 07/07/20 08:00 0.9 % Sodium Chloride Flush [NS Flush] 3 ml IVFLUSH QSHIFT 07/07/20 08:19 Furosemide [Lasix] 40 mg IVPUSH ONCE ONE Magnesium Sulfate/H2O 2 gm in 50 ml IV ONCE Potassium Phosphate [KPhos] 30 mmol 0.9 % Sodium Chloride [Ns] 500 ml IV ONCE 07/07/20 08:25 EKG Documentation DIRECTED 07/07/20 09:00 Albumin Human 25 % [Kedbumin 25 %] 100 ml IV Q6H 07/07/20 10:18 Piperacillin Sodium/Tazobactam [Zosyn] 4.5 gm IV .STK-MED ONE 07/07/20 13:29 Transfer Order Routine 07/07/20 13:47 LORazepam [Ativan] 0.5 mg IVPUSH Q4H PRN 07/07/20 15:00 XR chest 1V Stat 07/07/20 Lunch Regular Diet 07/07/20 18:58 Piperacillin Sodium/Tazobactam [Zosyn] 4.5 gm IV .STK-MED ONE 07/08/20 XR chest 1V Stat 07/08/20 01:36 Piperacillin Sodium/Tazobactam [Zosyn] 4.5 gm IV .STK-MED ONE 07/08/20 05:12 Complete Blood Count Auto Diff DAILY@0600 SLIDE REVIEW Routine 07/08/20 05:20 Metoprolol Tartrate [Lopressor] 5 mg IVPUSH ONCE ONE 07/08/20 05:33 Piperacillin Sodium/Tazobactam [Zosyn] 4.5 gm IV .STK-MED ONE 07/08/20 10:02 Piperacillin Sodium/Tazobactam [Zosyn] 4.5 gm IV .STK-MED ONE 07/08/20 13:48 Morphine Sulfate 2 mg IVPUSH ONCE ONE 07/08/20 13:53 ABG (RT) ONCE ABG (RT) ONCE 07/08/20 14:00 CA echo transthoracic complete Routine Basic Metabolic Panel DAILY@0600 07/08/20 14:10 Arterial Blood Gas Routine 07/08/20 14:43 Drug Screen Urine Stat 07/08/20 14:57 Furosemide [Lasix] 40 mg IVPUSH ONCE STA 07/08/20 16:42 ABG (RT) ONCE 07/08/20 16:55 Arterial Blood Gas Routine 07/08/20 16:58 Piperacillin Sodium/Tazobactam [Zosyn] 4.5 gm IV .STK-MED ONE 07/08/20 18:00 Furosemide [Lasix] 40 mg IVPUSH ONCE ONE 07/08/20 21:55 Piperacillin Sodium/Tazobactam [Zosyn] 4.5 gm IV .STK-MED ONE 07/09/20 05:16 Piperacillin Sodium/Tazobactam [Zosyn] 4.5 gm IV .STK-MED ONE 07/09/20 07:03 Basic Metabolic Panel DAILY@0600 Complete Blood Count no Diff DAILY@0600 Venous Blood Gas Routine 07/09/20 09:58 Piperacillin Sodium/Tazobactam [Zosyn] 4.5 gm IV .STK-MED ONE 07/09/20 Lunch Regular Diet 07/09/20 16:29 Piperacillin Sodium/Tazobactam [Zosyn] 4.5 gm IV .STK-MED ONE 07/09/20 22:00 Furosemide [Lasix] 40 mg IVPUSH Q12H 07/09/20 22:37 Piperacillin Sodium/Tazobactam [Zosyn] 4.5 gm IV .STK-MED ONE 07/10/20 CT chest wo con Stat XR chest 1V Stat 07/10/20 03:43 Piperacillin Sodium/Tazobactam [Zosyn] 4.5 gm IV .STK-MED ONE 07/10/20 05:42 Metoprolol Tartrate [Lopressor] 5 mg IVPUSH ONCE ONE 07/10/20 10:17 Piperacillin Sodium/Tazobactam [Zosyn] 4.5 gm IV .STK-MED ONE 07/10/20 12:14 ABG (RT) ONCE 07/10/20 12:20 Furosemide [Lasix] 20 mg IVPUSH ONCE ONE 07/10/20 12:22 Morphine Sulfate 2 mg IVPUSH ONCE ONE 07/10/20 12:40 Arterial Blood Gas Routine 07/10/20 14:42 ABG (RT) ONCE 07/10/20 14:43 LORazepam [Ativan] 0.5 mg IVPUSH ONCE ONE 07/10/20 16:50 Piperacillin Sodium/Tazobactam [Zosyn] 4.5 gm IV .STK-MED ONE 07/10/20 22:12 Piperacillin Sodium/Tazobactam [Zosyn] 4.5 gm IV .STK-MED ONE 07/11/20 05:06 Piperacillin Sodium/Tazobactam [Zosyn] 4.5 gm IV .STK-MED ONE 07/11/20 08:41 Basic Metabolic Panel Routine Magnesium Routine 07/11/20 10:30 KCl 20 mEq in 5% Dex/0.45% Sod 20 meq in 1,000 ml IVCONT 100 mls/hr 07/11/20 10:42 Add Laboratory Test Routine 07/11/20 11:00 Potassium Chloride ER [Klor-Con] 40 meq PO Q8H 07/11/20 11:41 Piperacillin Sodium/Tazobactam [Zosyn] 4.5 gm IV .STK-MED ONE 07/11/20 13:30 Magnesium Sulfate/H2O 2 gm in 50 ml IV Q2H 07/11/20 16:20 Piperacillin Sodium/Tazobactam [Zosyn] 4.5 gm IV .STK-MED ONE 07/11/20 20:25 Albuterol/Iprat 2.5/0.5MG 3 ML [Duoneb] 1.5 ml INHALE ONCE ONE 07/11/20 21:38 Piperacillin Sodium/Tazobactam [Zosyn] 4.5 gm IV .STK-MED ONE 07/12/20 03:53 Piperacillin Sodium/Tazobactam [Zosyn] 4.5 gm IV .STK-MED ONE 07/12/20 08:55 Basic Metabolic Panel Stat Magnesium Stat 07/12/20 09:56 Piperacillin Sodium/Tazobactam [Zosyn] 4.5 gm IV .STK-MED ONE 07/12/20 10:05 Add Laboratory Test Routine 07/12/20 10:15 acetaZOLAMIDE [Diamox] 250 mg PO BID 07/12/20 10:30 CDiff with Reflex to PCR Routine 07/13/20 05:53 Basic Metabolic Panel DAILY@0600 Complete Blood Count no Diff DAILY@0600 Magnesium DAILY 07/13/20 09:30 Potassium Chloride ER [Klor-con] 40 meq PO TID 07/14/20 04:13 Basic Metabolic Panel DAILY@0600 Complete Blood Count no Diff DAILY@0600 Laboratory Last Values WBC 11.0 X10*3/uL (4.8-10.8) H 07/14/20 04:13 RBC 2.83 X10*6/uL (4.20-5.50) L 07/14/20 04:13 Hgb 8.2 g/dl (12.0-16.0) L 07/14/20 04:13 Hct 26.3 % (37-47) L 07/14/20 04:13 MCV 92.9 fL (80-98) 07/14/20 04:13 MCH 29.0 pg (27.0-33.0) 07/14/20 04:13 MCHC 31.2 g/dl (31.0-35.0) 07/14/20 04:13 RDW 17.3 % (11.0-16.0) H 07/14/20 04:13 Plt Count 330 X10*3/uL (160-400) 07/14/20 04:13 MPV 11.0 fL (9.4-12.3) 07/14/20 04:13 Immature Gran % (Auto) 0.7 % (0.0-0.4) H 07/08/20 05:12 Neut % (Auto) 91.6 % (45-73) H 07/08/20 05:12 Lymph % (Auto) 2.1 % (20-40) L 07/08/20 05:12 [place] % (Auto) 4.5 % (2-11) 07/08/20 05:12 Eos % (Auto) 1.0 % (0-4) 07/08/20 05:12 Baso % (Auto) 0.1 % (0-2) 07/08/20 05:12 Lymph # (Auto) 0.5 X10*3/uL (1.2-4.9) L 07/08/20 05:12 [place] # (Auto) 1.0 X10*3/uL (0.1-1.2) 07/08/20 05:12 Eos # (Auto) 0.2 X10*3/uL (0.0-0.4) 07/08/20 05:12 Baso # (Auto) 0.0 X10*3/uL (0.0-0.2) 07/08/20 05:12 Abs Immat Gran (auto) 0.16 X10*3/uL (0.00-0.03) H 07/08/20 05:12 Absolute Neuts (auto) 20.8 X10*3/uL (2.0-8.3) H 07/08/20 05:12 Absolute Nucleated RBC 0.000 X10*3/uL (0.0-0.012) 07/14/20 04:13 Nucleated RBC % (auto) 0.0 /100WBC (0.0-0.2) 07/14/20 04:13 Neutrophils % (Manual) 92 % (45-73) H 06/27/20 05:21 Neutrophils % (Manual) Cancelled 06/27/20 05:21 Band Neutrophils % 6 % (3-5) H 06/27/20 05:21 Band Neutrophils % Cancelled 06/27/20 05:21 Lymphocytes % (Manual) Cancelled 06/27/20 05:21 Atypical Lymphs % (Man) Cancelled 06/27/20 05:21 Monocytes % (Manual) 2 % (2-11) 06/27/20 05:21 Monocytes % (Manual) Cancelled 06/27/20 05:21 Eosinophils % (Manual) Cancelled 06/27/20 05:21 Basophils % (Manual) Cancelled 06/27/20 05:21 Metamyelocytes % Cancelled 06/27/20 05:21 Myelocytes % Cancelled 06/27/20 05:21 Promyelocytes % Cancelled 06/27/20 05:21 Blast Cells % (Manual) Cancelled 06/27/20 05:21 Plasma Cell % (Manual) Cancelled 06/27/20 05:21 Abs Neuts (Manual) 69.7 X10*3/uL (2.2-7.9) H 06/27/20 05:21 Abs Neuts (Manual) Cancelled 06/27/20 05:21 Lymphocytes # (Manual) Cancelled 06/27/20 05:21 Atyp Lymphs # (Manual) Cancelled 06/27/20 05:21 Monocytes # (Manual) 1.4 X10*3/uL (0.0-1.2) H 06/27/20 05:21 Monocytes # (Manual) Cancelled 06/27/20 05:21 Eosinophils # (Manual) Cancelled 06/27/20 05:21 Basophils # (Manual) Cancelled 06/27/20 05:21 Metamyelocytes # Cancelled 06/27/20 05:21 Myelocytes # Cancelled 06/27/20 05:21 Promyelocytes # Cancelled 06/27/20 05:21 Blast Cells # Cancelled 06/27/20 05:21 Plasma Cell # (Manual) Cancelled 06/27/20 05:21 Nucleated RBCs Cancelled 06/27/20 05:21 Hypersegmented Neuts Cancelled 06/27/20 05:21 Smudge Cells Cancelled 06/27/20 05:21 Toxic Granulation Cancelled 06/27/20 05:21 Toxic Granulation PRESENT 06/27/20 05:21 Toxic Vacuolation Cancelled 06/27/20 05:21 Toxic Vacuolation PRES 06/27/20 05:21 Dohle Bodies Cancelled 06/27/20 05:21 Sangeeta Rods Cancelled 06/27/20 05:21 WBC Morphology Comment Cancelled 06/27/20 05:21 Platelet Estimate Cancelled 06/27/20 05:21 Platelet Estimate INCREASED (NORMAL) 06/27/20 05:21 Large Platelets Cancelled 06/27/20 05:21 Giant Platelets Cancelled 06/27/20 05:21 Plt Morphology Comment Cancelled 06/27/20 05:21 Plt Morphology Comment NORMAL 06/27/20 05:21 RBC Morphology Cancelled 06/27/20 05:21 RBC Morphology NOTED 06/27/20 05:21 Polychromasia Cancelled 06/27/20 05:21 Hypochromasia Cancelled 06/27/20 05:21 Basophilic Stippling Cancelled 06/27/20 05:21 Microcytosis Cancelled 06/27/20 05:21 Macrocytosis 1+ 06/27/20 05:21 Macrocytosis Cancelled 06/27/20 05:21 Spherocytes Cancelled 06/27/20 05:21 Pappenheimer Bodies Cancelled 06/27/20 05:21 Sickle Cells Cancelled 06/27/20 05:21 Target Cells Cancelled 06/27/20 05:21 Tear Drop Cells Cancelled 06/27/20 05:21 Ovalocytes Cancelled 06/27/20 05:21 Stomatocytes Cancelled 06/27/20 05:21 Mendoza-Fyffe Bodies Cancelled 06/27/20 05:21 Millie Cells Cancelled 06/27/20 05:21 Acanthocytes (Spur) 2+ 06/27/20 05:21 Acanthocytes (Spur) Cancelled 06/27/20 05:21 Rouleaux Cancelled 06/27/20 05:21 Schistocytes Cancelled 06/27/20 05:21 Smear Path Review SEE NOTE 06/19/20 04:05 Smear Tech's Comments VERIFIED 07/08/20 05:12 PT 12.5 SEC (10.8-13.0) 07/07/20 04:39 INR 1.1 (0.9-1.1) 07/07/20 04:39 APTT 30.9 SEC (24.1-38.0) 07/07/20 04:39 ABG pH 7.50 (7.35-7.45) H 07/10/20 12:40 ABG pCO2 47 mmhg (32-45) H 07/10/20 12:40 ABG pO2 61 mmhg (83-108) L 07/10/20 12:40 ABG HCO3 36 mmol/l (22-26) H 07/10/20 12:40 ABG O2 Saturation 92.9 % 07/10/20 12:40 ABG Base Excess 11.3 07/10/20 12:40 VBG pH 7.44 (7.32-7.43) H 07/09/20 07:03 VBG pCO2 47 mmhg 07/09/20 07:03 VBG pO2 50 mmhg 07/09/20 07:03 VBG HCO3 31 mmol/L 07/09/20 07:03 VBG O2 Saturation 89.2 % 07/09/20 07:03 VBG Base Excess 6.2 mmol/L 07/09/20 07:03 Oxygen Given 1 L 07/10/20 12:40 Sodium 139 mmol/L (135-145) 07/14/20 04:13 Potassium 4.5 mmol/l (3.3-5.1) D 07/14/20 04:13 Chloride 103 mmol/L (96-108) 07/14/20 04:13 Carbon Dioxide 28 mmol/L (22-29) 07/14/20 04:13 Anion Gap 13 (-) 07/14/20 04:13 BUN 12 mg/dL (9-16) 07/14/20 04:13 Creatinine 0.67 mg/dL (0.5-1.4) 07/14/20 04:13 Estim Creat Clear Calc 73.3 07/14/20 04:13 Estimated GFR > 60 07/14/20 04:13 POC Glucose 201 mg/dL (60-115) H 06/22/20 13:22 Random Glucose 90 mg/dL (60-115) 07/14/20 04:13 Lactic Acid 1.2 mmol/L (0.5-2.0) 06/19/20 04:05 Calcium 8.0 mg/dL (8.4-10.2) L 07/14/20 04:13 Phosphorus 2.1 mg/dL (2.7-4.5) L 07/07/20 04:39 Magnesium 1.8 mg/dL (1.6-2.6) 07/13/20 05:53 Total Bilirubin 0.6 mg/dL (0.0-1.0) 06/19/20 04:05 Direct Bilirubin 0.5 mg/dL (0.0-0.5) 06/19/20 04:05 AST 22 U/L (5-31) 06/19/20 04:05 ALT 19 U/L (0-31) 06/19/20 04:05 Alkaline Phosphatase 152 U/L (39-117) H 06/19/20 04:05 Troponin I High Sens 6.6 ng/L (<3.5-17.0) 06/23/20 12:54 B-Natriuretic Peptide 35 pg/mL (<100) 06/19/20 04:05 Total Protein 6.3 g/dL (6.5-8.0) L 06/19/20 04:05 Albumin 2.0 g/dL (3.5-5.0) L D 07/07/20 04:39 Lipase 5 U/L (8-78) L 06/19/20 04:05 Pleural pH TNP 07/02/20 01:38 Pleural WBC 79.340 X10*3/uL 07/02/20 01:38 Pleural RBC 0.062 X10*3/uL 07/02/20 01:38 Pleural Neutrophils TNP 07/02/20 01:38 Pleural Total Protein TNP 07/02/20 01:38 Pleural Albumin TNP 07/02/20 01:38 Pleural LDH TNP 07/02/20 01:38 Pleural Glucose TNP 07/02/20 01:38 Pleural Amylase TNP 07/02/20 01:38 Stool Leukocytes, Qual NEGATIVE (NEGATIVE) 06/24/20 15:11 Vancomycin Trough 31.8 mcg/mL (10.0-20.0) H* 06/28/20 10:11 Random Vancomycin 18.0 mcg/mL (15-20) 06/29/20 20:03 Urine Opiates Screen Not Detected (Not Detect) 07/08/20 14:43 Ur Barbiturates Screen Not Detected (Not Detect) 07/08/20 14:43 Ur Phencyclidine Scrn Not Detected (Not Detect) 07/08/20 14:43 Ur Amphetamines Screen Not Detected (Not Detect) 07/08/20 14:43 U Benzodiazepines Scrn POSITIVE (Not Detect) H 07/08/20 14:43 Urine Cocaine Screen Not Detected (Not Detect) 07/08/20 14:43 U Marijuana (THC) Screen Not Detected (Not Detect) 07/08/20 14:43 C. difficile Tox B Gene NEGATIVE (Negative) 06/24/20 15:11 C. difficile Toxin A&B Negative (Negative) 07/12/20 10:30 C. difficile Antigen Negative (Negative) 07/12/20 10:30 C. difficile Interpret SEE NOTE 07/12/20 10:30 Coronavirus (PCR) NEGATIVE (Negative) 06/19/20 04:05 HIV 1&2 Ab/P24 Ag 4thGn Nonreactive (Nonreactive) 06/24/20 15:59 Influenza Type A (PCR) NEGATIVE (Negative) 06/19/20 04:05 Influenza Type B (PCR) NEGATIVE (Negative) 06/19/20 04:05 RSV RNA Qual (PCR) NEGATIVE (Negative) 06/19/20 04:05 BCR/abl (FISH) Source Peripheral Blood 06/27/20 12:14 BCR/abl (FISH) Result 0.000 % 06/27/20 12:14 BCR/abl (FISH) Res Sum see note 06/27/20 12:14 BCR/abl Comment 0.000 % 06/27/20 12:14 BCR/abl Additionl Info Not Given 06/27/20 12:14 BCR/abl1 Mnr (p190) EER Not Detected 06/27/20 12:14 BCR/abl1 Mjr (p210) EER Not Detected 06/27/20 12:14 Blood Type A Positive 07/04/20 07:42 Antibody Screen NEGATIVE 07/04/20 07:42 Crossmatch See Detail 07/04/20 07:42 Preliminary micro results at discharge 07/02/20 01:38 Fungal Identification - Preliminary Pleural Fluid No growth to date. 06/26/20 13:55 Fungal Identification - Preliminary Lung Left Lower Lobe No growth after 1 week. 06/26/20 13:55 Fungal Identification - Preliminary Lung Left Lower Lobe No growth after 1 week. Discharge Plan Discharge Patient Disposition: Home Health Service Referrals: Giacomo Moore MD [Primary Care Provider] - Discharge Medications: New furosemide 40 mg Tablet 40 mg PO DAILY Qty: 30 RF: 0 Continued albuterol sulfate [ProAir HFA] 90 mcg/actuation HFA aerosol inhaler 2 puff PO Q2H PRN (Reason: shortness of breath or wheezing) Qty: 8.5 RF: 10 ipratropium-albuterol 0.5 mg-3 mg(2.5 mg base)/3 mL solution for nebulization 3 ml inhalation NEEDED RF: 0 alprazolam 1 mg tablet 1 mg PO BID PRN (Reason: Anxiety) RF: 0 sertraline 100 mg tablet 100 mg PO DAILY RF: 0 Flovent HFA 220 mcg/actuation HFA aerosol inhaler 2 puff inhalation BID RF: 0 ibuprofen 600 mg tablet 600 mg PO TID RF: 0 Incruse Ellipta 62.5 mcg/actuation blister with device 62.5 mcg inhalation DAILY RF: 0 Discharge Orders: Discharge Order (Routine); Ordered 07/14/20 Ordered By: Miguel Gallegos Diet: advance to usual diet Activity on Discharge: As tolerated Visit Report Forms: Patient Portal Discharge page Care Plan Goals: recovery Health Concerns: pneumonia, chf Plan of Treatment: started lasix
[2020-07-14] MEDS: Enoxaparin Sodium 40 MG/0.4 ML SYRINGE SUBCUT (12:11)
--- NOTE | 2020-07-14 12:39 | PC.NURSE ---
Patient being discharged home with VNA services. Triple lumen removed. No redness or swelling to site or signs of infection. Catheter intact. PT tolerated well, slightly anxious. Will continue to monitor anxiety.
--- NOTE | 2020-07-14 13:05 | MHC.CM.PN ---
unable to arrange a vna for pt as she has not establishedm herself with her listed pcp dr chapman pt imformed that she nshould ask her pcp when she sees him for a referrral to vna is she is interested instruction of how to name her pcp with her insurance will be sent home with pt julissa kathleen paperwork
== END 2020-07-14 13:30 | disposition home health service (06) | DRG 720 ==
LOC: HO.ED 05:02 → HO.IMC 10:53 → HO.S3 06-20 17:36 → HO.IMC 06-22 14:22 → HO.ICU 07-01 12:38 → HO.IMC 07-07 16:24
PROVIDERS: Family Medicine; Hospitalist; Internal Medicine; Internal Medicine Cardiovascular Disease; Internal Medicine Medical Oncology; Internal Medicine Pulmonary Disease; Physician Assistant; Physician Assistant Medical; Admitting Provider Internal Medicine; Emergency Provider Emergency Medicine; PCP Internal Medicine; Visit Provider Internal Medicine
PROC: 0BJ08ZZ Inspection of Tracheobronchial Tree, Via Natural or Artificial Opening Endoscopic (ICD-10-PCS; CPT 31622; principal; 2020-06-26 12:50)
DX: A41.9 Sepsis, unspecified organism (principal); J96.21 Acute and chronic respiratory failure with hypoxia; E87.3 Alkalosis; G92 Toxic encephalopathy; J18.8 Other pneumonia, unspecified organism; A04.72 Enterocolitis due to Clostridium difficile, not specified as recurrent; N17.9 Acute kidney failure, unspecified; J44.0 Chronic obstructive pulmonary disease with (acute) lower respiratory infection; E87.1 Hypo-osmolality and hyponatremia; J44.1 Chronic obstructive pulmonary disease with (acute) exacerbation; D72.829 Elevated white blood cell count, unspecified; F41.9 Anxiety disorder, unspecified; J93.9 Pneumothorax, unspecified; T40.1X1A Poisoning by heroin, accidental (unintentional), initial encounter; J96.22 Acute and chronic respiratory failure with hypercapnia; F11.20 Opioid dependence, uncomplicated; F19.10 Other psychoactive substance abuse, uncomplicated; Y92.9 Unspecified place or not applicable; Z20.828 Contact with and (suspected) exposure to other viral communicable diseases; Z87.891 Personal history of nicotine dependence; Z79.899 Other long term (current) drug therapy
CPT/HCPCS: 0241U; 36415; 36600; 71045; 71250; 71275; 80048; 80076; 80202; 80307; 81206; 81207; 82040; 82042; 82150; 82803; 82945; 82947; 83605; 83615; 83690; 83735; 83880; 83986; 84100; 84157; 84484; 85007; 85025; 85027; 85060; 85610; 85730; 86850; 86900; 86901; 86920; 86923; 87040; 87045; 87046; 87070; 87071; 87073; 87076; 87102; 87116; 87147; 87185; 87205; 87324; 87389; 87449; 87493; 88112; 88305; 88312; 89051; 89055; 92610; 93005; 93306; 94002; 94003; 94640; 94644; 94660; 94799; 96361; 96365; 96366; 96367; 96375; 97116; 97162; 97530; 99225; 99232; 99285; 99291; C1758; J0171; J0696; J1100; J1450; J1650; J1885; J1940; J1956; J2060; J2250; J2270; J2370; J2405; J2543; J2920; J2930; J3010; J3370; J3475; P9016; P9047; Q9967

== ENCOUNTER 2020-07-17 16:00 | Inpatient (IN) | payer OTHER, SELFPAY ==
--- NOTE | 2020-07-17 | ECG_ITS ---
Test Reason : SOB Blood Pressure : / mmHG Vent. Rate : 120 BPM Atrial Rate : 120 BPM P-R Int : 130 ms QRS Dur : 084 ms QT Int : 328 ms P-R-T Axes : 070 047 060 degrees QTc Int : 463 ms Sinus tachycardia Cannot exclude old septal infarct, but could be normal variant Abnormal ECG When compared with ECG of 08-JUL-2020 20:24, No significant changes seen Referred By: Dayne Baldwin Electronically Signed By: DAVID SANDRA
[2020-07-17 16:18] VITALS: BP 120/75; BP 129/48; PULSE 121; PULSE 130; RESP 24; TEMP 37.2; O2SAT 74; O2SAT 86; BMI 21.9
--- NOTE | 2020-07-17 16:40 | XR_ITS ---
EXAMINATION: XR CHEST CLINICAL INFORMATION: Hypoxia COMPARISON: Chest radiograph 07/10/[address] of the chest 07/10/2020 TECHNIQUE: Frontal view of the chest was obtained. FINDINGS: Normal cardiomediastinal silhouette. Again demonstrated is a moderate to large left pleural effusion. There is increased opacity at the left lung base, that may represent atelectasis. The right lung is clear. No acute osseous abnormality. XR/XR chest 1V IMPRESSION: Moderate to large left pleural effusion, similar to the prior study with associated atelectasis at the left lung base. Improved aeration to the right lung base.
--- NOTE | 2020-07-17 16:43 | ED_ITS ---
HPI - SOB/Dyspnea General Chief Complaint: Dyspnea Stated Complaint: sob low 02 Time Seen by Provider: 07/17/20 16:28 Source: patient and EMS Mode of arrival: EMS Limitations: no limitations History of Present Illness HPI Narrative: 59-year-old female brought in by ambulance after noted that patient was hypoxic at home by her daughter, this is a 59-year-old female had a recent hospitalization week ago for pneumonia with sepsis accompanied with acute kidney injury, patient required prolonged hospitalization and this included few days ICU admissions, patient was sent home found by her daughter to be hypoxic at 57% in room air, patient on arrival to the emergency department was satting in the 70s. Patient also complaining of low back pain that is chronic (for many years) no change in intensity or character of the pain, able to move 4 extremities, no urinary incontinence, no stool incontinence. Related Data Home Medications Medication Instructions Recorded Confirmed Flovent HFA 2 puff INHALATION BID 06/19/20 06/19/20 ibuprofen 600 mg PO TID 06/19/20 06/19/20 ipratropium-albuterol 3 ml INHALATION NEEDED 06/19/20 06/19/20 sertraline 100 mg PO DAILY 06/19/20 06/19/20 Previous Rx's Medication Instructions Recorded albuterol sulfate 90 mcg/actuation 2 puff PO Q2H PRN #8.5 g 05/27/20 aerosol inhaler furosemide 40 mg PO DAILY #30 tab 07/14/20 Allergies Allergy/AdvReac Type Severity Reaction Status Date / Time No Known Allergies Allergy Verified 06/19/20 13:41 [No Known Allergies*] latex Allergy Unknown rash Uncoded 06/19/20 05:58 Review of Systems Review of Systems: All other systems are reviewed and are negative Constitutional: Reports as per HPI and Reports no additional constitutional complaints Eyes: Reports as per HPI and Reports no additional eye complaints Reports system reviewed and no additional complaints, except as documented Cardiovascular: Reports as per HPI and Reports no additional cardiovascular complaints Respiratory: Reports as per HPI and Reports no additional respiratory complaints Gastrointestinal: Reports as per HPI and Reports no additional gastrointestinal complaints Genitourinary: Reports no additional female genitourinary complaints Musculoskeletal: Reports no additional musculoskeletal complaints Skin/Breast: Reports system reviewed and no additional complaints, except as docu Psychiatric: Reports no additional psychiatric complaints Endocrine: Reports no additional endocrine complaints Hematologic/Lymphatic: Reports no additional hematologic/lymphatic complaints Allergic/Immunologic: Reports no additional allergic/immunologic complaints Reports system reviewed and no additional complaints, except as documented and Reports Abnormal speech present FOR[facility]LY [facility], [facility] Past Medical History Medical History Anxiety Asthma with COPD (chronic obstructive pulmonary disease) Atelectasis of left lung Atelectasis of left lung Cavitary pneumonia Pneumothorax on left Family History Family History Other Family history non-contributory Social History Social History Household Members: Spouse Housing: House Alcohol intake: never Smoking Status: Former smoker Smoked in Last 30 Days: No Use of substances other than those prescribed or required for medical reasons: No Advance Directives: No Advance Directives Information Provided: Yes service: No Current occupational status: unemployed Physical Exam Vital Signs: Vital Signs: Last Vital Signs Temp 98.9 F 07/17/20 20:00 Pulse 93 07/17/20 20:00 Resp 22 H 07/17/20 20:00 BP 118/73 07/17/20 20:00 Pulse Ox 3 L 07/17/20 20:00 Body Mass Index 21.9 Vital signs have been reviewed as normal and appeared to be correct. Blood pressure in the high range, tachycardic, tachypneic, Temperature normal. Oxygen saturation normal. Appearance: Alert. Oriented X3. No acute distress. Head: Normal external exam. Normocephalic. Atraumatic. No [place] signs noted. No raccoon eyes noted Eyes: PERRLA. EOMI. Conjunctiva and sclera normal. Eyelids normal. ENT: EAC normal. TM's Normal. Pharynx normal. Uvula midline. Moist mucous membranes. No trismus noted. No drooling noted. No muffled voice noted. Neck: Normal inspection. Neck supple. FROM. No adenopathy. Thyroid Normal. No meningeal signs. No neck mass noted. CVS: Normal heart rate and rhythm. Heart sound normal. No murmurs noted. Pulses normal throughout. Respiratory: No respiratory distress. Painless inspiration. Breath sounds normal. No wheezes/rales/rhonchi noted. Chest nontender. No accessory muscle usage noted or decreased air movement noted. Abdomen: Soft and nontender. Bowel sounds normal in all 4 quadrants. No distention noted. No organomegaly noted. No visible injury noted. Back: No CVA tenderness. Full range of motion noted. Skin: Skin warm and dry. Normal skin color. Normal skin turgor. No rashes/lesions/lacerations noted. Extremities: No lower extremity edema. Extremities exhibit normal range of motion. Extremities nontender. Neuro: Oriented X 3. No motor deficit. No sensory deficit. Reflexes normal. Course Course Course Narrative: Assessment and plan. 59-year-old female had a recent hospitalization presented with hypoxia, patient has no chest pain, no shortness of breath, patient had increased left pleural effusion on the CT of the chest. Hypoxia patient had a history of hypercarbia in the past a possible COPD history, patient is stable with 4 L of oxygen via nasal cannula, will admit the patient for further thoracic surgeon evaluation and possible drainage. Patient showing no signs of pneumonia or indication for antibiotic administration. MDM - SOB/Dyspnea Lab Data Result diagrams: 07/17/20 17:07 07/17/20 17:07 Labs: Lab Results 07/17/20 07/17/20 07/17/20 Range/Units 17:06 17:06 17:07 WBC 8.9 (4.8-10.8) X10*3/uL RBC 3.11 L (4.20-5.50) X10*6/uL Hgb 8.9 L (12.0-16.0) g/dl Hct 28.8 L (37-47) % MCV 92.6 (80-98) fL MCH 28.6 (27.0-33.0) pg MCHC 30.9 L (31.0-35.0) g/dl RDW 17.8 H (11.0-16.0) % Plt Count 498 H D (160-400) X10*3/uL MPV 10.4 (9.4-12.3) fL Immature Gran % (Auto) 0.4 (0.0-0.4) % Neut % (Auto) 73.9 H (45-73) % Lymph % (Auto) 11.8 L (20-40) % [place] % (Auto) 10.5 (2-11) % Eos % (Auto) 3.1 (0-4) % Baso % (Auto) 0.3 (0-2) % Lymph # (Auto) 1.1 L (1.2-4.9) X10*3/uL [place] # (Auto) 0.9 (0.1-1.2) X10*3/uL Eos # (Auto) 0.3 (0.0-0.4) X10*3/uL Baso # (Auto) 0.0 (0.0-0.2) X10*3/uL Abs Immat Gran (auto) 0.04 H (0.00-0.03) X10*3/uL Absolute Neuts (auto) 6.6 (2.0-8.3) X10*3/uL Absolute Nucleated RBC 0.000 (0.0-0.012) X10*3/uL Nucleated RBC % (auto) 0.0 (0.0-0.2) /100WBC Mixed VBG pH 7.31 Mixed VBG pCO2 55 mmhg Mixed VBG pO2 57 mmhg Mixed VBG HCO3 27 mmol/L Mixed VBG Base Excess 0.6 mmol/L Mixed VBG O2 Saturation 87.3 % Mixed VBG FiO2 ROOM AIR Sodium (135-145) mmol/L Potassium (3.3-5.1) mmol/l Chloride (96-108) mmol/L Carbon Dioxide (22-29) mmol/L Anion Gap (12-20) BUN (9-16) mg/dL Creatinine (0.5-1.4) mg/dL Estim Creat Clear Calc Estimated GFR Random Glucose (60-115) mg/dL Lactic Acid 1.4 (0.5-2.0) mmol/L Calcium (8.4-10.2) mg/dL Total Bilirubin (0.0-1.0) mg/dL Direct Bilirubin (0.0-0.5) mg/dL AST (5-31) U/L ALT (0-31) U/L Alkaline Phosphatase (39-117) U/L Troponin I High Sens (<3.5-17.0) ng/L B-Natriuretic Peptide (<100) pg/mL Total Protein (6.5-8.0) g/dL Albumin (3.5-5.0) g/dL Lipase (8-78) U/L Urine Color Urine Appearance Urine pH (5.0-8.0) Ur Specific [place] (1.005-1.025) Urine Protein (NEG-TRACE) MG/DL Urine Glucose (UA) (NEG) MG/DL Urine Ketones (NEG) MG/DL Urine Blood (NEG) Urine Nitrite (NEG) Ur Leukocyte Esterase (NEG) Urine RBC (0) /HPF Urine WBC (0-4) /HPF Ur Squamous Epith Cells /LPF Urine Bacteria /LPF COVID-19 (PAVEL) (Negative) COVID-19 Clin Com 07/17/20 07/17/20 07/17/20 Range/Units 17:07 17:07 17:07 WBC (4.8-10.8) X10*3/uL RBC (4.20-5.50) X10*6/uL Hgb (12.0-16.0) g/dl Hct (37-47) % MCV (80-98) fL MCH (27.0-33.0) pg MCHC (31.0-35.0) g/dl RDW (11.0-16.0) % Plt Count (160-400) X10*3/uL MPV (9.4-12.3) fL Immature Gran % (Auto) (0.0-0.4) % Neut % (Auto) (45-73) % Lymph % (Auto) (20-40) % Cat[place] % (Auto) (2-11) % Eos % (Auto) (0-4) % Baso % (Auto) (0-2) % Lymph # (Auto) (1.2-4.9) X10*3/uL [place] # (Auto) (0.1-1.2) X10*3/uL Eos # (Auto) (0.0-0.4) X10*3/uL Baso # (Auto) (0.0-0.2) X10*3/uL Abs Immat Gran (auto) (0.00-0.03) X10*3/uL Absolute Neuts (auto) (2.0-8.3) X10*3/uL Absolute Nucleated RBC (0.0-0.012) X10*3/uL Nucleated RBC % (auto) (0.0-0.2) /100WBC Mixed VBG pH Mixed VBG pCO2 mmhg Mixed VBG pO2 mmhg Mixed VBG HCO3 mmol/L Mixed VBG Base Excess mmol/L Mixed VBG O2 Saturation % Mixed VBG FiO2 Sodium 137 (135-145) mmol/L Potassium 4.0 (3.3-5.1) mmol/l Chloride 101 (96-108) mmol/L Carbon Dioxide 29 (22-29) mmol/L Anion Gap 11 L (12-20) BUN 13 (9-16) mg/dL Creatinine 0.72 (0.5-1.4) mg/dL Estim Creat Clear Calc 68.2 Estimated GFR > 60 Random Glucose 126 H D (60-115) mg/dL Lactic Acid (0.5-2.0) mmol/L Calcium 8.4 (8.4-10.2) mg/dL Total Bilirubin 0.3 (0.0-1.0) mg/dL Direct Bilirubin 0.2 (0.0-0.5) mg/dL AST 16 (5-31) U/L ALT 11 (0-31) U/L Alkaline Phosphatase 131 H (39-117) U/L Troponin I High Sens 20.6 H D (<3.5-17.0) ng/L B-Natriuretic Peptide 25 (<100) pg/mL Total Protein 6.3 L (6.5-8.0) g/dL Albumin 3.3 L D (3.5-5.0) g/dL Lipase 25 (8-78) U/L Urine Color Urine Appearance Urine pH (5.0-8.0) Ur Specific [place] (1.005-1.025) Urine Protein (NEG-TRACE) MG/DL Urine Glucose (UA) (NEG) MG/DL Urine Ketones (NEG) MG/DL Urine Blood (NEG) Urine Nitrite (NEG) Ur Leukocyte Esterase (NEG) Urine RBC (0) /HPF Urine WBC (0-4) /HPF Ur Squamous Epith Cells /LPF Urine Bacteria /LPF COVID-19 (PAVEL) (Negative) COVID-19 Clin Com 07/17/20 07/17/20 07/17/20 Range/Units 17:07 20:10 20:10 WBC (4.8-10.8) X10*3/uL RBC (4.20-5.50) X10*6/uL Hgb (12.0-16.0) g/dl Hct (37-47) % MCV (80-98) fL MCH (27.0-33.0) pg MCHC (31.0-35.0) g/dl RDW (11.0-16.0) % Plt Count (160-400) X10*3/uL MPV (9.4-12.3) fL Immature Gran % (Auto) (0.0-0.4) % Neut % (Auto) (45-73) % Lymph % (Auto) (20-40) % Catron % (Auto) (2-11) % Eos % (Auto) (0-4) % Baso % (Auto) (0-2) % Lymph # (Auto) (1.2-4.9) X10*3/uL [place] # (Auto) (0.1-1.2) X10*3/uL Eos # (Auto) (0.0-0.4) X10*3/uL Baso # (Auto) (0.0-0.2) X10*3/uL Abs Immat Gran (auto) (0.00-0.03) X10*3/uL Absolute Neuts (auto) (2.0-8.3) X10*3/uL Absolute Nucleated RBC (0.0-0.012) X10*3/uL Nucleated RBC % (auto) (0.0-0.2) /100WBC Mixed VBG pH Mixed VBG pCO2 mmhg Mixed VBG pO2 mmhg Mixed VBG HCO3 mmol/L Mixed VBG Base Excess mmol/L Mixed VBG O2 Saturation % Mixed VBG FiO2 Sodium (135-145) mmol/L Potassium (3.3-5.1) mmol/l Chloride (96-108) mmol/L Carbon Dioxide (22-29) mmol/L Anion Gap (12-20) BUN (9-16) mg/dL Creatinine (0.5-1.4) mg/dL Estim Creat Clear Calc Estimated GFR Random Glucose (60-115) mg/dL Lactic Acid (0.5-2.0) mmol/L Calcium (8.4-10.2) mg/dL Total Bilirubin (0.0-1.0) mg/dL Direct Bilirubin (0.0-0.5) mg/dL AST (5-31) U/L ALT (0-31) U/L Alkaline Phosphatase (39-117) U/L Troponin I High Sens 26.8 H (<3.5-17.0) ng/L B-Natriuretic Peptide (<100) pg/mL Total Protein (6.5-8.0) g/dL Albumin (3.5-5.0) g/dL Lipase (8-78) U/L Urine Color YELLOW Urine Appearance CLEAR Urine pH 5.5 (5.0-8.0) Ur Specific [place] 1.025 (1.005-1.025) Urine Protein NEG (NEG-TRACE) MG/DL Urine Glucose (UA) NEG (NEG) MG/DL Urine Ketones NEG (NEG) MG/DL Urine Blood 3+ H (NEG) Urine Nitrite NEG (NEG) Ur Leukocyte Esterase NEG (NEG) Urine RBC 10-14 H (0) /HPF Urine WBC 1-4 (0-4) /HPF Ur Squamous Epith Cells TRACE /LPF Urine Bacteria NONE /LPF COVID-19 (PAVEL) Negative (Negative) COVID-19 Clin Com See Note Imaging Data CTA chest: Radiologist's impression: IMPRESSION: 1. No evidence of pulmonary emboli. 2. Increase in size of large loculated complex left pleural effusion. Very little left lung is aerated because of the compressive effect. Only the left upper lobe appears to be aerated. Discharge Plan Discharge Clinical Impression: Hypoxia Patient Disposition: Admitted As Inpatient Prescriptions: No Action albuterol sulfate [ProAir HFA] 90 mcg/actuation HFA aerosol inhaler 2 puff PO Q2H PRN (Reason: shortness of breath or wheezing) Qty: 8.5 RF: 10 ipratropium-albuterol 0.5 mg-3 mg(2.5 mg base)/3 mL solution for nebulization 3 ml inhalation NEEDED RF: 0 sertraline 100 mg tablet 100 mg PO DAILY RF: 0 Flovent HFA 220 mcg/actuation HFA aerosol inhaler 2 puff inhalation BID RF: 0 ibuprofen 600 mg tablet 600 mg PO TID RF: 0 furosemide 40 mg Tablet 40 mg PO DAILY Qty: 30 RF: 0
[2020-07-17 17:17] VITALS: BP 134/66; PULSE 111; RESP 15; TEMP 37.3; O2SAT 3
[2020-07-17 17:19] LABS: Pt Ventilation O2% Mixed Ven. ROOM AIR
[2020-07-17 17:19] LABS: MANUAL DIFF FLAG NO
[2020-07-17] MEDS: 0.9 % Sodium Chloride 1,000 ML 999 ML IVCONT ×2 (17:19→20:00)
[2020-07-17 17:20] LABS: HCO3- Mixed Venous 27 mmol/L; O2 Saturation Mixed Venous 87.3 %
[2020-07-17 17:22] LABS: Blood Gas Serial # 5396
[2020-07-17 17:29] LABS: COVID-19 Test Negative (Negative)
[2020-07-17 17:33] LABS: Lactic Acid 1.4 mmol/L (0.5-2.0)
[2020-07-17 17:38] LABS: Alanine Aminotransferase 11 U/L (0-31); Albumin Level 3.3 g/dL (3.5-5.0); Alkaline Phosphatase 131 U/L (39-117); Anion Gap 11 (12-20); Aspartate Amino Transferase 16 U/L (5-31); Bilirubin Direct 0.2 mg/dL (0.0-0.5); Bilirubin Total 0.3 mg/dL (0.0-1.0); Blood Urea Nitrogen 13 mg/dL (9-16); Calcium 8.4 mg/dL (8.4-10.2); Carbon Dioxide 29 mmol/L (22-29); Chloride 101 mmol/L (96-108); Creatinine Clr Calc Pharmacy 68.2; Estimated Glomerular Filt Rate > 60; Glucose Random 126 mg/dL (60-115); Lipase 25 U/L (8-78); Sodium 137 mmol/L (135-145); Total Protein 6.3 g/dL (6.5-8.0)
[2020-07-17 17:43] LABS: B Type Natriuretic Peptide 25 pg/mL (<100); Basophils Percent Auto 0.3 % (0-2); Eosinophils Absolute Auto 0.3 X10*3/uL (0.0-0.4); Eosinophils Percent Auto 3.1 % (0-4); Hematocrit 28.8 % (37-47); Hemoglobin 8.9 g/dl (12.0-16.0); Imm Gran Abs Auto 0.04 X10*3/uL (0.00-0.03); Imm Gran Pct Auto 0.4 % (0.0-0.4); Lymphocytes Absolute Auto 1.1 X10*3/uL (1.2-4.9); Lymphocytes Percent Auto 11.8 % (20-40); Mean Corpuscular HGB Conc 30.9 g/dl (31.0-35.0); Mean Corpuscular Hemoglobin 28.6 pg (27.0-33.0); Mean Corpuscular Volume 92.6 fL (80-98); Mean Platelet Volume 10.4 fL (9.4-12.3); Monocytes Absolute Auto 0.9 X10*3/uL (0.1-1.2); Monocytes Percent Auto 10.5 % (2-11); Neutrophils Absolute Auto 6.6 X10*3/uL (2.0-8.3); Neutrophils Percent Auto 73.9 % (45-73); Platelet Count 498 X10*3/uL (160-400); Red Blood Count 3.11 X10*6/uL (4.20-5.50); Red Cell Distribution Width 17.8 % (11.0-16.0); White Blood Count 8.9 X10*3/uL (4.8-10.8)
[2020-07-17 18:29] LABS: Troponin-I High Sensitivity 20.6 ng/L (<3.5-17.0)
--- NOTE | 2020-07-17 18:33 | CT_ITS ---
EXAMINATION: CT ANGIOGRAM OF THE CHEST WITH AND WITHOUT CONTRAST (CT PULMONARY ANGIOGRAM FOR PE) CLINICAL INFORMATION: Hypoxia. Rule out PE. COMPARISON: 07/10/2020 TECHNIQUE: Prior to contrast administration, noncontrast localization images were obtained. Subsequently, multidetector volumetric imaging was performed from the thoracic inlet to below the diaphragms following the administration of 65 mL Omnipaque 350 intravenous contrast. No contrast reaction reported. Sagittal, coronal, and MIP oblique sagittal reformatted images were obtained on the CT workstation, uploaded to PACS, and reviewed. This CT examination was performed using dose optimization techniques as appropriate, variously including the following: *Automated exposure control *Adjustment of mA and/or kV according to patient size (this includes techniques or standardized protocols for targeted exams where dose is matched to indication/reason for exam; i.e. extremities or head) *Use of iterative reconstruction technique Total exam dose-length product 184 mGy-cm FINDINGS: QUALITY OF STUDY/CONTRAST BOLUS: Satisfactory. PULMONARY ARTERIES: No central or segmental pulmonary emboli. THORACIC AORTA: No aneurysm or dissection. LUNG: Very little aerated lung is present on the left secondary to compression by the large loculated effusion. The upper lobe is aerated, the lower lobe is completely collapsed and the lingula appears to be nearly completely collapsed as well. The right lung is clear with the exception of a tiny punctate nodule in the upper lobe (series 7 image [id number]). PLEURA: There is a large loculated left pleural effusion present which has increased in size since the prior study. A few small locules at the time of the prior study, of air are noted within this indicating that this is not simple fluid. At the time of the prior study, a small right-sided pleural effusion was present which has resolved. MEDIASTINUM: Normal heart size. No pericardial effusion. No hilar or mediastinal lymphadenopathy. No evidence of septal bowing or right heart strain. CHEST WALL/AXILLA: No axillary or internal mammary lymphadenopathy. OSSEOUS STRUCTURES: No acute or suspicious osseous abnormality. UPPER ABDOMEN: Status post cholecystectomy. Otherwise unremarkable. No reflux of contrast into the hepatic veins to suggest elevated right heart pressures. CT/CT angio chest PE protocol IMPRESSION: 1. No evidence of pulmonary emboli. 2. Increase in size of large loculated complex left pleural effusion. Very little left lung is aerated because of the compressive effect. Only the left upper lobe appears to be aerated. VTE: Negative
[2020-07-17 18:35] VITALS: BP 119/55; PULSE 103; RESP 20; O2SAT 97
--- NOTE | 2020-07-17 18:37 | PC.NURSE ---
pt resting comfortably in the stretcher, respirations even and unlabored, in no apparent distress at this time. pt sating 97% on 3l
[2020-07-17 20:00] VITALS: BP 118/73; PULSE 93; RESP 22; TEMP 37.2; O2SAT 3
[2020-07-17] MEDS: iohexoL 350 MG/ML 100 ML INFUS..BTL IV (20:03)
[2020-07-17 20:17] LABS: Glucose Urine UA NEG (NEG); Leukocyte Esterase Urine NEG (NEG); Nitrite Urine NEG (NEG); PH 5.5 (5.0-8.0); Specific Gravity - Urine 1.025 (1.005-1.025); Urine Blood 3+ (NEG); Urine Ketones NEG (NEG); Urine Protein NEG (NEG-TRACE)
[2020-07-17 20:18] LABS: Appearance Urine CLEAR; Color Urine YELLOW
[2020-07-17 20:40] LABS: Squamous Epithelial Cell Urine TRACE /LPF
[2020-07-17 20:55] LABS: Troponin-I High Sensitivity 26.8 ng/L (<3.5-17.0)
[2020-07-17 22:00] VITALS: BP 125/65; PULSE 93; RESP 18; TEMP 37.3; O2SAT 97
[2020-07-18 01:06] VITALS: BP 121/86; PULSE 82; RESP 18; TEMP 37.2; O2SAT 99
[2020-07-18] MEDS: Enoxaparin Sodium 40 MG/0.4 ML SYRINGE SUBCUT (01:30)
[2020-07-18] MEDS: 0.9 % Sodium Chloride Flush 3 ML SYRINGE IVFLUSH ×2 (01:31→08:15)
[2020-07-18 01:44] VITALS: BP 144/66; PULSE 89; RESP 20; TEMP 36.5; O2SAT 99
[2020-07-18] MEDS: ALPRAZolam 0.5 MG TABLET 2 MG PO ×2 (02:21→09:55)
[2020-07-18 04:41] VITALS: BP 132/68; PULSE 88; RESP 20; TEMP 37.2; O2SAT 98
[2020-07-18 06:00] VITALS: BMI 24.2
--- NOTE | 2020-07-18 06:27 | PM.IMHP ---
History of Present Illness Date of Service: 07/17/20 Chief Complaint: Hypoxia 59-year-old female with past medical history of COPD, newly diagnosed CHF, anxiety who presents to the hospital stating that her daughter found her to have hypoxia. Of note patient discharged from the hospital on 07/14: Per DC summary: Hospital course Patient had prolonged hospital stay, for fall course please see complete medical record. In summary: Patient was admitted for sepsis due to pneumonia and COPD exacerbation. She was given steroids, bronchodilators, antibiotics. Her symptoms improved to the point of discharge. However, on day of planned discharge patient was found to be unresponsive and apneic. She was given Narcan and responded. It was discovered that she had done heroin in bathroom prior to planned discharge. Due to that event, patient then had aspiration pneumonia complicated by acute on chronic diastolic CHF. She was given course of IV Zosyn and diuresed. Course was complicated by acute hypoxic and hypercapnic respiratory failure requiring intubation. Patient was able to be extubated. She is now on room air. Feeling better. She will be discharged home. Case was reviewed with the actions disease to stated patient did not need any further antibiotics. She will be discharged on new Lasix 40 mg daily. She will be given home PT. She was not interested in pursuing short-term rehab. She returns today stating that she had back pain earlier in the day and her daughter had ordered an oximeter and was checking her O2 which was around 70-80% on room air. Patient herself feels a little more short of breath than since being discharged from the hospital on the , reports a cough with sputum production. Denies any fever or chills. She also feels palpitations. She had also been treated for C diff on recent admission but now reports her diarrhea has significantly improved. She denies any chest pain, no abdominal pain, no nausea or vomiting, no urinary symptoms, no lower extremity edema. Patient's vitals are significant for temp of 99.0?, heart rate of 121, respiratory rate of 24, blood pressure 129/48, satting 86% on room air. Currently on 3 L satting 97%. Labs are significant for WBC count of 8.9, hemoglobin of 8.9 which is around her baseline, hematocrit of 28.8, chemistry significant for sodium of 137, potassium 4.0, alk-phos of 131, high sensitivity troponin of 20.6 on repeat of 26.8, BNP only 25. ABG showed a pH of 7.50, pCO2 of 47 CT angiogram demonstrated no evidence of pulmonary emboli. increase in size of large loculated complex left pleural effusion with very little left lung that area did because of the compressive effect. Patient will be admitted for further management of the above past medical history: COPD, anxiety , newly acquired CHF Surgical history: , cholecystectomy, knee surgery is Family history: Adopted Social history: Comes from home, former tobacco use, quit 4 years ago, denies any alcohol or illicit drugs Review of Systems Review of Systems: Yes all other systems are reviewed and are negative [facility] Medical History Anxiety Asthma with COPD (chronic obstructive pulmonary disease) Atelectasis of left lung Atelectasis of left lung Cavitary pneumonia Pneumothorax on left Family History Other Family history non-contributory Social History Household Members: Spouse and Children Housing: House Alcohol intake: never Smoking Status: Former smoker Smoked in Last 30 Days: No Use of substances other than those prescribed or required for medical reasons: Unknown Currently Displaying Signs/Symptoms of Drug Intoxication Withdrawal: No Have you been hit, kicked, punched, or otherwise hurt by someone within the past year? If so, by whom?: No Do you feel safe in your current relationship?: Yes Is there a partner from a previous relationship who is making you feel unsafe now?: No Are you made to feel afraid or neglected: No Advance Directives: No Advance Directives Information Provided: Yes Do you have thoughts of harming others: None Do you have a plan to hurt others: No Plan Recently lost weight without trying: No service: No Current occupational status: unemployed Meds Allergies Allergy/AdvReac Type Severity Reaction Status Date / Time latex Allergy Unknown rash Uncoded 06/19/20 05:58 Home Medications Medication Instructions Recorded Confirmed Type Flovent HFA 2 puff INHALATION BID 06/19/20 07/17/20 History ibuprofen 600 mg PO TID 06/19/20 07/17/20 History ipratropium-albuterol 3 ml INHALATION NEEDED 06/19/20 07/17/20 History sertraline 100 mg PO DAILY 06/19/20 07/17/20 History alprazolam [Xanax] 2 mg PO DAILY 07/17/20 07/17/20 History umeclidinium [Incruse Ellipta] 1 inh INHALATION DAILY 07/17/20 07/17/20 History Physical Exam Vital Signs and Narrative: Vital Signs: Last Vital Signs Temp 98.9 F 07/18/20 04:41 Pulse 88 07/18/20 04:41 Resp 20 07/18/20 04:41 BP 132/68 07/18/20 04:41 Pulse Ox 98 07/18/20 04:41 Body Mass Index 24.2 Const: Other: Appears frail General: cooperative and no acute distress Orientation/consciousness: patient oriented x3 Eyes: General: appearance normal, both eyes and all related structures Resp: Effort & Inspection: normal respiratory effort and able to speak in complete sentences Cardio: Rate: regular rate Rhythm: regular rhythm GI: Palpation (GI): Soft to palpation Auscultation: normal bowel sounds Skin: General skin exam: no rashes or lesions noted Neuro: General: patient oriented x3 Cognition (Neuro): normal cognition Extrem: General: Yes normal to inspection and Yes no pedal edema Results Labs CBC and Chem 7: 07/17/20 17:07 07/17/20 17:07 Labs: Laboratory Results - last 24 hr 07/17/20 07/17/20 07/17/20 17:06 17:06 17:07 MCV 92.6 MCH 28.6 MCHC 30.9 L RDW 17.8 H Plt Count 498 H D MPV 10.4 Immature Gran % (Auto) 0.4 Neut % (Auto) 73.9 H Lymph % (Auto) 11.8 L [place] % (Auto) 10.5 Eos % (Auto) 3.1 Baso % (Auto) 0.3 Lymph # (Auto) 1.1 L [place] # (Auto) 0.9 Eos # (Auto) 0.3 Baso # (Auto) 0.0 Abs Immat Gran (auto) 0.04 H Absolute Neuts (auto) 6.6 Absolute Nucleated RBC 0.000 Nucleated RBC % (auto) 0.0 Mixed VBG pH 7.31 Mixed VBG pCO2 55 Mixed VBG pO2 57 Mixed VBG HCO3 27 Mixed VBG Base Excess 0.6 Mixed VBG O2 Saturation 87.3 Mixed VBG FiO2 ROOM AIR Anion Gap Estim Creat Clear Calc Estimated GFR Random Glucose Lactic Acid 1.4 Calcium Total Bilirubin Direct Bilirubin AST ALT Alkaline Phosphatase Troponin I High Sens B-Natriuretic Peptide Total Protein Albumin Lipase Urine Color Urine Appearance Urine pH Ur Specific [place] Urine Protein Urine Glucose (UA) Urine Ketones Urine Blood Urine Nitrite Ur Leukocyte Esterase Urine RBC Urine WBC Ur Squamous Epith Cells Urine Bacteria COVID-19 (PAVEL) COVID-19 [facility] 07/17/20 07/17/20 07/17/20 17:07 17:07 17:07 MCV MCH MCHC RDW Plt Count MPV Immature Gran % (Auto) Neut % (Auto) Lymph % (Auto) [place] % (Auto) Eos % (Auto) Baso % (Auto) Lymph # (Auto) [place] # (Auto) Eos # (Auto) Baso # (Auto) Abs Immat Gran (auto) Absolute Neuts (auto) Absolute Nucleated RBC Nucleated RBC % (auto) Mixed VBG pH Mixed VBG pCO2 Mixed VBG pO2 Mixed VBG HCO3 Mixed VBG Base Excess Mixed VBG O2 Saturation Mixed VBG FiO2 Anion Gap 11 L Estim Creat Clear Calc 68.2 Estimated GFR > 60 Random Glucose 126 H D Lactic Acid Calcium 8.4 Total Bilirubin 0.3 Direct Bilirubin 0.2 AST 16 ALT 11 Alkaline Phosphatase 131 H Troponin I High Sens 20.6 H D B-Natriuretic Peptide 25 Total Protein 6.3 L Albumin 3.3 L D Lipase 25 Urine Color Urine Appearance Urine pH Ur Specific [place] Urine Protein Urine Glucose (UA) Urine Ketones Urine Blood Urine Nitrite Ur Leukocyte Esterase Urine RBC Urine WBC Ur Squamous Epith Cells Urine Bacteria COVID-19 (PAVLE) COVID-19 [employer] 07/17/20 07/17/20 07/17/20 17:07 20:10 20:10 MCV MCH MCHC RDW Plt Count MPV Immature Gran % (Auto) Neut % (Auto) Lymph % (Auto) [place] % (Auto) Eos % (Auto) Baso % (Auto) Lymph # (Auto) [place] # (Auto) Eos # (Auto) Baso # (Auto) Abs Immat Gran (auto) Absolute Neuts (auto) Absolute Nucleated RBC Nucleated RBC % (auto) Mixed VBG pH Mixed VBG pCO2 Mixed VBG pO2 Mixed VBG HCO3 Mixed VBG Base Excess Mixed VBG O2 Saturation Mixed VBG FiO2 Anion Gap Estim Creat Clear Calc Estimated GFR Random Glucose Lactic Acid Calcium Total Bilirubin Direct Bilirubin AST ALT Alkaline Phosphatase Troponin I High Sens 26.8 H B-Natriuretic Peptide Total Protein Albumin Lipase Urine Color YELLOW Urine Appearance CLEAR Urine pH 5.5 Ur Specific [place] 1.025 Urine Protein NEG Urine Glucose (UA) NEG Urine Ketones NEG Urine Blood 3+ H Urine Nitrite NEG Ur Leukocyte Esterase NEG Urine RBC 10-14 H Urine WBC 1-4 Ur Squamous Epith Cells TRACE Urine Bacteria NONE COVID-19 (PAVEL) Negative COVID-19 Clin Com See Note Imaging Radiologist's Impressions: Impressions Chest X-Ray 07/17/20 16:40 IMPRESSION: Moderate to large left pleural effusion, similar to the prior study with associated atelectasis at the left lung base. Improved aeration to the right lung base. Chest CTA 07/17/20 18:33 IMPRESSION: 1. No evidence of pulmonary emboli. 2. Increase in size of large loculated complex left pleural effusion. Very little left lung is aerated because of the compressive effect. Only the left upper lobe appears to be aerated. VTE: Negative Assessment and Plan (1) Respiratory failure with hypoxia: Qualifiers: Chronicity: acute Qualified Code(s): J96.01 - Acute respiratory failure with hypoxia Status: Acute (2) Pleural effusion: Status: Acute (3) Hydropneumothorax: Status: Acute This is a 59-year-old female with past medical history of COPD as well as recently diagnosed CHF and hydropneumothorax and 8 elective cyst of the left lung status post ablation a partial expansion of the lung since discharge on 07/14 who presents to the hospital with hypoxia. # acute hypoxic respiratory failure - patient reports that her sats were running between 70 to 80s at home, was found to be 86% on room air on arrival to the ED - chest CT shows expansion of hydropneumothorax from recent admission were almost all of the left lung is now not areated - currently on 3 L of oxygen, no evidence of CHF exacerbation as BNP is less than 100 with no clinical signs of volume overload - patient has a cough with sputum production but at her baseline Plan: - will continue oxygen supplementation - will consult pulmonology as well as thoracic surgery for possible chest tube placement and management of recurrent hydropneumothorax and left lung atelectasis - monitor respiratory status - will keep off antibiotics and continue home dose of Lasix # CHF - does not appear to be in exacerbation - although has pleural effusion that is loculated on lungs, her BNP is also on 100, clinically does not appear to be in falling overload - will continue Lasix home dose of 40 mg daily p.o. # COPD - does not appear to be in exacerbation, has a cough and sputum production but her baseline - will continue home inhalers and DuoNeb p.r.n. # anxiety - continue Xanax
[2020-07-18 06:31] LABS: MANUAL DIFF FLAG NO
[2020-07-18 06:56] LABS: Basophils Percent Auto 0.4 % (0-2); Eosinophils Absolute Auto 0.3 X10*3/uL (0.0-0.4); Eosinophils Percent Auto 3.7 % (0-4); Hematocrit 23.6 % (37-47); Hemoglobin 7.3 g/dl (12.0-16.0); Imm Gran Abs Auto 0.04 X10*3/uL (0.00-0.03); Imm Gran Pct Auto 0.6 % (0.0-0.4); Lymphocytes Absolute Auto 1.2 X10*3/uL (1.2-4.9); Lymphocytes Percent Auto 18.3 % (20-40); Mean Corpuscular HGB Conc 30.9 g/dl (31.0-35.0); Mean Corpuscular Hemoglobin 29.2 pg (27.0-33.0); Mean Corpuscular Volume 94.4 fL (80-98); Mean Platelet Volume 10.4 fL (9.4-12.3); Monocytes Absolute Auto 0.9 X10*3/uL (0.1-1.2); Monocytes Percent Auto 13.1 % (2-11); Neutrophils Absolute Auto 4.3 X10*3/uL (2.0-8.3); Neutrophils Percent Auto 63.9 % (45-73); Platelet Count 392 X10*3/uL (160-400); Red Cell Distribution Width 17.9 % (11.0-16.0); White Blood Count 6.7 X10*3/uL (4.8-10.8)
[2020-07-18 07:15] VITALS: BP 128/66; PULSE 79; RESP 18; TEMP 36.6; O2SAT 95
[2020-07-18 07:27] LABS: Anion Gap 11 (12-20); Blood Urea Nitrogen 11 mg/dL (9-16); Carbon Dioxide 25 mmol/L (22-29); Chloride 108 mmol/L (96-108); Creatinine Clr Calc Pharmacy 70.1; Estimated Glomerular Filt Rate > 60; Glucose Random 88 mg/dL (60-115); Potassium 3.9 mmol/l (3.3-5.1); Sodium 140 mmol/L (135-145)
[2020-07-18 07:42] LABS: Calcium 7.8 mg/dL (8.4-10.2)
[2020-07-18] MEDS: Furosemide 40 MG TABLET PO (08:15)
[2020-07-18] MEDS: Sertraline HCL 100 MG TABLET PO (08:15)
--- NOTE | 2020-07-18 09:29 | MHC.CM.PN ---
Pt reports she lives at home with her and is independent with care and mobility. Pt does not have any DME or services at home. Pt did not have a PCP when last admitted but reports since then she has seen a new one. She does not remember the doctors name but reports she goes to [facility] on [facility] in [place]. Pt reports she has a HCP at home completed-copy requested. Pt reports she hopes to DC today. Current DC plan is home with no services vs home with VNA. However, if a VNA is ordered, they will require PCP verification which will be unavailable prior to Tuesday so may not be able to start over the weekend. Pt also reports she is unsure if she will have transportation.
--- NOTE | 2020-07-18 09:44 | HO.PM.IMPN ---
Subjective Subjective Date of Service: 07/18/20 Interval History: feels fine, came in because family sent her. Cardiovascular Cardiovascular: Reports no additional cardiovascular complaints Respiratory Respiratory: Reports no additional respiratory complaints Physical Exam Vital Signs: Vital Signs: Last Vital Signs Temp 97.8 F 07/18/20 07:15 Pulse 79 07/18/20 07:15 Resp 18 07/18/20 07:15 BP 128/66 07/18/20 07:15 Pulse Ox 95 07/18/20 07:15 Body Mass Index 24.2 General: AO X 3, no acute distress Resp: diminished CVS: S1,S2,RRR GI: soft, non tender, non distended Neuro: motor grossly intact Psych: appropriate affect Objective Data Current Medications Generic Name Dose Route Start Last Admin Trade Name Freq PRN Reason Stop Dose Admin Acetaminophen 650 mg 07/18/20 01:13 Acetaminophen 325 Mg Tablet PO Q6H PRN Pain, Mild (Pain Scale 1-3) Albuterol/Ipratropium 3 ml 07/18/20 01:13 Albuterol/Iprat 2.5/0.5mg 3 Ml Ampul.Neb INHALE Q2H PRN Shortness of Breath/Wheezing Alprazolam 2 mg 07/18/20 02:00 07/18/20 02:21 Alprazolam 0.5 Mg Tablet PO 2 mg DAILY GURWINDER Administration Docusate Sodium 100 mg 07/18/20 01:13 Docusate Sodium 100 Mg Capsule PO DAILY PRN Constipation Enoxaparin Sodium 40 mg 07/18/20 02:00 07/18/20 01:30 Enoxaparin Sodium 40 Mg/0.4 Ml Syringe SUBCUT 40 mg Q24H GURWINDER Administration Fluticasone Propionate 2 puff 07/18/20 08:00 Fluticasone Propionate 250 Mcg Blst.W.Dev INHALE RBID GURWINDER Furosemide 40 mg 07/18/20 08:00 07/18/20 08:15 Furosemide 40 Mg Tablet PO 40 mg DAILY@0800 GURWINDER Administration Protocol Non-Formulary Medication 1 inhalation 07/18/20 09:00 Umeclidinium [Incruse Ellipta] INHALE DAILY GURWINDER Ondansetron HCl 4 mg 07/18/20 01:13 Ondansetron Hcl 4 Mg/2 Ml Vial IVPUSH Q8H PRN Nausea and Vomiting Pharmacy Consult 1 each 07/17/20 21:24 Consult Rx Perform Med Rec MISCELLANE ONCE PRN Consult order Sertraline HCl 100 mg 07/18/20 09:00 07/18/20 08:15 Sertraline Hcl 100 Mg Tablet PO 100 mg DAILY GURWINDER Administration Sodium Chloride 3 ml 07/18/20 01:13 07/18/20 08:15 0.9 % Sodium Chloride Flush 3 Ml Syringe IVFLUSH 3 ml QSHIFT GURWINDER Administration Labs CBC & Chem 7: 07/18/20 05:32 07/18/20 05:32 Assessment and Plan (1) Respiratory failure with hypoxia: Status: Acute (2) Pleural effusion: Status: Acute (3) Hydropneumothorax: Status: Acute Assessment and Plan: This is a 59-year-old female with past medical history of COPD as well as recently diagnosed CHF and hydropneumothorax and 8 elective cyst of the left lung status post ablation a partial expansion of the lung since discharge on 07/14 who presented to the hospital with hypoxia. acute hypoxic respiratory failure - patient reports that her sats were running between 70 to 80s at home, was found to be 86% on room air on arrival to the ED - chest CT shows expansion of hydropneumothorax from recent admission were almost all of the left lung is now not areated relatively asymptomatic follow up pulm and thoracic chronic diastolic chf continue Lasix home dose of 40 mg daily p.o. COPD duonebs as needed incruse ellipta anxiety - continue Xanax zoloft opioid dependence avoid opiates
--- NOTE | 2020-07-18 11:01 | PM.DS ---
DS: Providers Provider Date of admission: 07/17/20 23:25 Primary care physician: Rodrick Jimenes MD Consults: 07/18/20 01:13 Consult to Pulmonology Routine Consulting Provider: Marva Peterson Reason for consultation: loculated complex pleural effusion, recurrent Has provider been notified: No Consult to Thoracic Surgery Routine Consulting Provider: Laila Rice Reason for consultation: loculated complex left pleural effusion- chest tube? Has provider been notified: No DS: Diagnosis Discharge Diagnosis (1) Respiratory failure with hypoxia: Status: Acute (2) Pleural effusion: Status: Acute (3) Hydropneumothorax: Status: Acute DS: Medications Discharge Medications Home Medications: Home Medications Medication Instructions Recorded Confirmed Flovent HFA 2 puff INHALATION BID 06/19/20 07/17/20 ibuprofen 600 mg PO TID 06/19/20 07/17/20 ipratropium-albuterol 3 ml INHALATION NEEDED 06/19/20 07/17/20 sertraline 100 mg PO DAILY 06/19/20 07/17/20 Incruse Ellipta 1 inh INHALATION DAILY 07/17/20 07/17/20 alprazolam [Xanax] 2 mg PO DAILY 07/17/20 07/17/20 Previous Rx's Medication Instructions Recorded albuterol sulfate 90 mcg/actuation 2 puff PO Q2H PRN #8.5 g 05/27/20 aerosol inhaler furosemide 40 mg PO DAILY #30 tab 07/14/20 DS: Summary Hospital Course Hospital Course: Patient was admitted for acute hypoxic respiratory failure secondary to worsening loculated left pleural effusion. Thoracic surgery was consulted recommended chest tube placement, as there is no coverage at [facility] at this time patient will be transferred to [facility] for chest tube. Patient is medically stable on 3 L of oxygen. Time Spent with Patient Time attestation: Total time spent providing and/or coordinating discharge services: Physical Exam Vital Signs: Vital Signs: Last Vital Signs Temp 97.8 F 07/18/20 07:15 Pulse 79 07/18/20 07:15 Resp 18 07/18/20 07:15 BP 128/66 07/18/20 07:15 Pulse Ox 95 07/18/20 07:15 Body Mass Index 24.2 General: AO X 3, no acute distress Resp: diminshed CVS: S1,S2,RRR GI: soft, non tender, non distended Neuro: motor grossly intact Psych: appropriate affect DS: Data Data Completed and Pending Labs on day of discharge: 07/17/20 ECG 12 lead EKG Stat 07/17/20 16:30 EKG Documentation DIRECTED 07/17/20 16:40 EKG Documentation DIRECTED XR chest 1V Stat 07/17/20 16:45 0.9 % Sodium Chloride [Ns] 1,000 ml IVCONT 999 mls/hr 07/17/20 17:06 ABG Mixed Venous Stat Lactic Acid Stat 07/17/20 17:07 B Type Natriuretic Peptide Stat Basic Metabolic Panel Stat COVID-19 ID NOW ([facility]) Stat Complete Blood Count Auto Diff Stat Lipase Stat Liver Panel Stat Troponin-I High Sensitivity Stat 07/17/20 18:33 CT angio chest PE protocol Stat 07/17/20 18:45 0.9 % Sodium Chloride [Ns] 1,000 ml IVCONT 999 mls/hr 07/17/20 20:03 iohexoL 350 MG/ML [Omnipaque 350 MG/ML] 100 ml IV ONCE ONE 07/17/20 20:10 Troponin-I High Sensitivity Stat 07/17/20 23:05 Transfer Order Routine 07/18/20 01:13 IV insert/maintain Q4HR Intake and Output Q8HR Vital Signs Q4HR 07/18/20 05:32 Basic Metabolic Panel Routine Complete Blood Count Auto Diff Routine 07/18/20 09:00 ALPRAZolam [Xanax] 2 mg PO DAILY Laboratory Last Values WBC 6.7 X10*3/uL (4.8-10.8) 07/18/20 05:32 RBC 2.50 X10*6/uL (4.20-5.50) L 07/18/20 05:32 Hgb 7.3 g/dl (12.0-16.0) L 07/18/20 05:32 Hct 23.6 % (37-47) L 07/18/20 05:32 MCV 94.4 fL (80-98) 07/18/20 05:32 MCH 29.2 pg (27.0-33.0) 07/18/20 05:32 MCHC 30.9 g/dl (31.0-35.0) L 07/18/20 05:32 RDW 17.9 % (11.0-16.0) H 07/18/20 05:32 Plt Count 392 X10*3/uL (160-400) 07/18/20 05:32 MPV 10.4 fL (9.4-12.3) 07/18/20 05:32 Immature Gran % (Auto) 0.6 % (0.0-0.4) H 07/18/20 05:32 Neut % (Auto) 63.9 % (45-73) 07/18/20 05:32 Lymph % (Auto) 18.3 % (20-40) L 07/18/20 05:32 [place] % (Auto) 13.1 % (2-11) H 07/18/20 05:32 Eos % (Auto) 3.7 % (0-4) 07/18/20 05:32 Baso % (Auto) 0.4 % (0-2) 07/18/20 05:32 Lymph # (Auto) 1.2 X10*3/uL (1.2-4.9) 07/18/20 05:32 [place] # (Auto) 0.9 X10*3/uL (0.1-1.2) 07/18/20 05:32 Eos # (Auto) 0.3 X10*3/uL (0.0-0.4) 07/18/20 05:32 Baso # (Auto) 0.0 X10*3/uL (0.0-0.2) 07/18/20 05:32 Abs Immat Gran (auto) 0.04 X10*3/uL (0.00-0.03) H 07/18/20 05:32 Absolute Neuts (auto) 4.3 X10*3/uL (2.0-8.3) 07/18/20 05:32 Absolute Nucleated RBC 0.000 X10*3/uL (0.0-0.012) 07/18/20 05:32 Nucleated RBC % (auto) 0.0 /100WBC (0.0-0.2) 07/18/20 05:32 Mixed VBG pH 7.31 07/17/20 17:06 Mixed VBG pCO2 55 mmhg 07/17/20 17:06 Mixed VBG pO2 57 mmhg 07/17/20 17:06 Mixed VBG HCO3 27 mmol/L 07/17/20 17:06 Mixed VBG Base Excess 0.6 mmol/L 07/17/20 17:06 Mixed VBG O2 Saturation 87.3 % 07/17/20 17:06 Mixed VBG FiO2 ROOM AIR 07/17/20 17:06 Sodium 140 mmol/L (135-145) 07/18/20 05:32 Potassium 3.9 mmol/l (3.3-5.1) 07/18/20 05:32 Chloride 108 mmol/L (96-108) 07/18/20 05:32 Carbon Dioxide 25 mmol/L (22-29) 07/18/20 05:32 Anion Gap 11 (12-20) L 07/18/20 05:32 BUN 11 mg/dL (9-16) 07/18/20 05:32 Creatinine 0.70 mg/dL (0.5-1.4) 07/18/20 05:32 Estim Creat Clear Calc 70.1 07/18/20 05:32 Estimated GFR > 60 07/18/20 05:32 Random Glucose 88 mg/dL (60-115) 07/18/20 05:32 Lactic Acid 1.4 mmol/L (0.5-2.0) 07/17/20 17:06 Calcium 7.8 mg/dL (8.4-10.2) L D 07/18/20 05:32 Total Bilirubin 0.3 mg/dL (0.0-1.0) 07/17/20 17:07 Direct Bilirubin 0.2 mg/dL (0.0-0.5) 07/17/20 17:07 AST 16 U/L (5-31) 07/17/20 17:07 ALT 11 U/L (0-31) 07/17/20 17:07 Alkaline Phosphatase 131 U/L (39-117) H 07/17/20 17:07 Troponin I High Sens 26.8 ng/L (<3.5-17.0) H 07/17/20 20:10 B-Natriuretic Peptide 25 pg/mL (<100) 07/17/20 17:07 Total Protein 6.3 g/dL (6.5-8.0) L 07/17/20 17:07 Albumin 3.3 g/dL (3.5-5.0) L D 07/17/20 17:07 Lipase 25 U/L (8-78) 07/17/20 17:07 Urine Color YELLOW 07/17/20 20:10 Urine Appearance CLEAR 07/17/20 20:10 Urine pH 5.5 (5.0-8.0) 07/17/20 20:10 Ur Specific [place] 1.025 (1.005-1.025) 07/17/20 20:10 Urine Protein NEG MG/DL (NEG-TRACE) 07/17/20 20:10 Urine Glucose (UA) NEG MG/DL (NEG) 07/17/20 20:10 Urine Ketones NEG MG/DL (NEG) 07/17/20 20:10 Urine Blood 3+ (NEG) H 07/17/20 20:10 Urine Nitrite NEG (NEG) 07/17/20 20:10 Ur Leukocyte Esterase NEG (NEG) 07/17/20 20:10 Urine RBC 10-14 /HPF (0) H 07/17/20 20:10 Urine WBC 1-4 /HPF (0-4) 07/17/20 20:10 Ur Squamous Epith Cells TRACE /LPF 07/17/20 20:10 Urine Bacteria NONE /LPF 07/17/20 20:10 COVID-19 (PAVEL) Negative (Negative) 07/17/20 17:07 COVID-19 Clin Com See Note 07/17/20 17:07 Discharge Plan Discharge Patient Disposition: Xfer Acute [facility] Referrals: Rodrick Jimenes MD [Primary Care Provider] - Discharge Medications: Continued albuterol sulfate [ProAir HFA] 90 mcg/actuation HFA aerosol inhaler 2 puff PO Q2H PRN (Reason: shortness of breath or wheezing) Qty: 8.5 RF: 10 Incruse Ellipta 62.5 mcg/actuation blister with device 1 inh inhalation DAILY RF: 0 alprazolam [Xanax] 1 mg Tablet 2 mg PO DAILY RF: 0 ipratropium-albuterol 0.5 mg-3 mg(2.5 mg base)/3 mL solution for nebulization 3 ml inhalation NEEDED RF: 0 sertraline 100 mg tablet 100 mg PO DAILY RF: 0 Flovent HFA 220 mcg/actuation HFA aerosol inhaler 2 puff inhalation BID RF: 0 ibuprofen 600 mg tablet 600 mg PO TID RF: 0 furosemide 40 mg Tablet 40 mg PO DAILY Qty: 30 RF: 0 Discharge Orders: Discharge Order (Routine); Ordered 07/18/20 Ordered By: Miguel Gallegos Activity on Discharge: As tolerated Visit Report Forms: Patient Portal Discharge page Care Plan Goals: resolve loculated pleural effusion Health Concerns: hypoxia Plan of Treatment: transfer to [facility] for thoracic
[2020-07-18 11:27] VITALS: BP 109/56; PULSE 81; RESP 18; TEMP 36.8; O2SAT 100
--- NOTE | 2020-07-18 12:30 | PM.EVENT ---
Event Note Date of Service: 07/18/20 Event Note: This the 59 years old female, who had a prolonged hospital course recently, with cavitary pneumonia left lower lobe and empyema, complicated by hydropneumothorax, treated by a chest tube for several days and improved. She is the back in the hospital mainly because of finding of hypoxemia. But she denies any fever chills or chest pain. Clinical findings as well as radiologic picture is consistent with recurrent pleural effusion on the left side and underlying atelectasis of the left lung. A: Recurrent Empyema/ Hydrothorax . P: O2 supplements as needed . Thoracic surgery consult. for chest tube placement and continued drainage for several days . She may need Decortication / Pleurodesis .
--- NOTE | 2020-07-18 13:16 | PC.NURSE ---
Pt transfereed to [facility]. Iv remained per Nurse at facility. Monitor removed, nurse to nurse report given.
== END 2020-07-18 13:00 | disposition short-term general hospital (02) | DRG 194 ==
LOC: HO.ED 21:24 → HO.IMC 07-18 00:55
PROVIDERS: Admitting Provider Internal Medicine; Emergency Provider Emergency Medicine; PCP Internal Medicine; Visit Provider Internal Medicine
DX: J94.2 Hemothorax (principal); I50.32 Chronic diastolic (congestive) heart failure; J96.01 Acute respiratory failure with hypoxia; J90 Pleural effusion, not elsewhere classified; J44.9 Chronic obstructive pulmonary disease, unspecified; F41.9 Anxiety disorder, unspecified; Z20.828 Contact with and (suspected) exposure to other viral communicable diseases; F11.20 Opioid dependence, uncomplicated; Z87.891 Personal history of nicotine dependence; Z79.1 Long term (current) use of non-steroidal anti-inflammatories (NSAID); Z79.51 Long term (current) use of inhaled steroids; Z79.899 Other long term (current) drug therapy
CPT/HCPCS: 36415; 71045; 71275; 80048; 80076; 81001; 82803; 83605; 83690; 83880; 84484; 85025; 87040; 87635; 93005; 96360; 96361; 99285; J1650; Q9967

== ENCOUNTER → 2020-11-25 11:31 | Outpatient (BNVA) | payer OTHER, SELFPAY | PROVIDERS: PCP Internal Medicine; Visit Provider Internal Medicine Pulmonary Disease | DX: J94.8 Other specified pleural conditions (principal); J44.9 Chronic obstructive pulmonary disease, unspecified; F41.9 Anxiety disorder, unspecified; K21.9 Gastro-esophageal reflux disease without esophagitis; R06.83 Snoring; Z91.09 Other allergy status, other than to drugs and biological substances | CPT/HCPCS: 99212 ==

== ENCOUNTER 2020-12-04 14:07 | Emergency (ER) | payer OTHER, SELFPAY ==
--- NOTE | ~2020-12-04 | CT_ITS ---
EXAMINATION: CT CHEST, ABDOMEN AND PELVIS WITH CONTRAST CLINICAL INFORMATION: Dyspnea and epigastric pain COMPARISON: CT angiogram chest 07/17/2020 CT abdomen pelvis 05/26/2017 TECHNIQUE: Multidetector volumetric imaging was performed from the thoracic inlet through the pubic symphysis following administration of 85 mL of Omnipaque 350. Sagittal and coronal reformatted images were obtained on the technologist's workstation. This CT examination was performed using dose optimization techniques as appropriate, variously including the following: *Automated exposure control *Adjustment of mA and/or kV according to patient size (this includes techniques or standardized protocols for targeted exams where dose is matched to indication/reason for exam; i.e. extremities or head) *Use of iterative reconstruction technique DLP: 657 mGy-cm FINDINGS: CHEST: Lung: There is evidence of underlying COPD. There is some volume loss in the left chest with some lower lobe atelectasis/scarring and a small left pleural effusion. No worrisome lung masses are seen. Compared to the prior study from 07/17/2020 there has been marked improvement with a dramatic reduction in the left pleural effusion and compressive lower lobe atelectasis. Mediastinum: The right lobe of the thyroid extends behind the esophagus.. The central vascular structures are unremarkable. No hilar or mediastinal lymphadenopathy. Pericardium/Pleura: No significant effusion. No pleural mass or thickening. Chest Wall/Axilla: Multiple prominent left axillary lymph nodes are seen the largest measuring 1.2 x 0.9 x 1.8 cm (5:13). These axillary nodes are larger than present in June 2020 ABDOMEN/PELVIS: Peritoneal Space: No significant free air or free fluid identified. Liver, Gallbladder, Biliary Tree: There is mild prominence of central bile ducts in this patient status post cholecystectomy. No worrisome focal liver masses are seen. Characteristic hypodensity seen adjacent to the falciform ligament indicative of either focal fat or differences in venous drainage, not a worrisome finding. Pancreas: Unremarkable Spleen: Unremarkable Adrenal Glands: Unremarkable Kidneys and Ureters: The kidneys are normal in size, shape, and attenuation. No hydronephrosis, hydroureter, or calculi seen. A tiny left renal cyst is present measuring 5 mm in size, unchanged when compared to the 2017 study. No solid renal masses are seen. No perinephric stranding. Bladder: Unremarkable Gastrointestinal Tract: The small and large bowel are unremarkable. Colonic diverticular changes present without diverticulitis. The appendix is unremarkable. Abdominal Wall: No significant hernia is appreciated. Lymph Nodes: No retroperitoneal lymphadenopathy Vascular: Calcific atherosclerotic changes present in the aorta and iliac vessels. No aneurysm.. The IVC appears unremarkable. PELVIC VISCERA: An anteverted uterus is present with calcified fibroids decreased in overall size when compared to 2017. An abnormal adnexal mass is not seen. No free intraperitoneal fluid is present OSSEUS STRUCTURES: Mild degenerative changes are noted in the spine. No bony destructive lesions are seen. CT/CT abdomen pelvis w con IMPRESSION: 1. COPD with volume loss on left, small left pleural effusion and left basilar atelectasis (however this is significantly improved when compared to the prior study) 2. Enlarging left axillary lymph nodes. These should be followed. 3. Calcified uterine fibroids with overall decrease in size of uterus since 2017. 4. Other incidental findings as described above 5. A cause for the patient's acute shortness of breath and acute epigastric pain has not been found
[2020-12-04 14:18] VITALS: BP 153/85; PULSE 85; RESP 21; TEMP 36.9; O2SAT 96; BMI 22.8
--- NOTE | 2020-12-04 14:20 | ECG_ITS ---
Test Reason : CHEST PAIN Blood Pressure : / mmHG Vent. Rate : 089 BPM Atrial Rate : 089 BPM P-R Int : 126 ms QRS Dur : 084 ms QT Int : 376 ms P-R-T Axes : 072 047 066 degrees QTc Int : 457 ms Normal sinus rhythm Normal ECG No previous ECGs available Referred By: Generic ED Physician Electronically Signed By:KRISTAL VILLARREAL MD
[2020-12-04 14:35] VITALS: O2SAT 96
--- NOTE | 2020-12-04 14:36 | ED.GENADULT ---
HPI - General Adult General Chief complaint: General Medical Stated complaint: Difficulty Breathing/Chest Pain Time Seen by Provider: 12/04/20 14:36 Source: patient Mode of arrival: ambulatory Limitations: no limitations History of Present Illness HPI narrative: 60 yo female with hx of COPD/hydropneumothorax s/p chest tube placements, GERD, JOSIAH, respiratory failure, pneumonia, overdose in hospital resulting in aspiration pneumonia and intubation, she is taking motrin daily for knee pain (chronic) comes in with 3 days of dyspnea, epigastric pain anxiety and nausea, her digital solutions architect started on prilosec 1 week ago but she has no relief. MD complaint: dyspnea and abdominal pain Onset (ago): day(s) (3) Location: abdomen Radiation: non-radiation Severity: moderate Quality: aching and constant Pain Consistency: constant Relieving factors: none Exacerbating factors: eating Associated symptoms: loss of appetite, malaise, nausea/vomiting and weakness Treatments prior to arrival: none Related Data Home Medications Medication Instructions Recorded Confirmed Flovent HFA 2 puff INHALATION BID 06/19/20 07/17/20 ibuprofen 600 mg PO TID 06/19/20 07/17/20 ipratropium-albuterol 3 ml INHALATION NEEDED 06/19/20 07/17/20 sertraline 100 mg PO DAILY 06/19/20 07/17/20 alprazolam [Xanax] 2 mg PO DAILY 07/17/20 07/17/20 Previous Rx's Medication Instructions Recorded furosemide 40 mg PO DAILY #30 tab 07/14/20 umeclidinium 62.5 mcg/actuation 1 inh INHALATION DAILY #30 cap 08/20/20 blister powder for inhalation albuterol sulfate 90 mcg/actuation 2 puff PO Q2H PRN #8.5 g 11/25/20 aerosol inhaler hydroxyzine HCl 25 mg tablet 25 mg PO TID PRN 30 Days #60 tab 11/25/20 omeprazole 40 mg capsule,delayed 40 mg PO DAILY 30 Days #30 cap 11/25/20 release fluticasone propionate 50 1 spray INTRANASAL BID 30 Days #1 11/27/20 mcg/actuation nasal ea spray,suspension Allergies Allergy/AdvReac Type Severity Reaction Status Date / Time latex Allergy Unknown Verified 11/25/20 11:32 Review of Systems Review of Systems: Constitutional : No Weight loss, No Fever, No Chills ENT/Mouth : No sore throat, No Rhinorrhea Eyes: No Swelling, No Redness Cardiovascular : No Chest Pain, pos SOB, No Edema Respiratory : pos Cough, No Sputum, No Wheezing Gastrointestinal : Positive Nausea, no Vomiting, no Diarrhea, positive abdominal Pain, No Hematochezia, No Melena Genitourinary : No Dysuria, No Urinary Frequency, No Hematuria, No Urgency Musculoskeletal : No joint pain, No Myalgias, No Joint Swelling Skin : No Skin Lesions, No rash Neuro : No Weakness, No Numbness, No Dizziness, No Headache Psych : pos Anxiety/Panic, No Depression Heme/Lymph: No Bruising, No Lymphadenopathy Endocrine : No Polyuria, No Polydipsia All other systems reviewed and are negative. [facility] Past Medical History Attestation statement: The following information was validated with the patient. Medical History Anxiety Asthma with COPD (chronic obstructive pulmonary disease) Atelectasis of left lung Atelectasis of left lung Cavitary pneumonia Pneumothorax on left Family History Family History Other Family history non-contributory Social History Social History Household Members: Spouse and Children Housing: House Alcohol intake: never Smoking Status: Former smoker Use of substances other than those prescribed or required for medical reasons: No Advance Directives: No Advance Directives Information Provided: No service: No Current occupational status: unemployed Physical Exam Vital Signs: Vital Signs: Last Vital Signs Temp 98.4 F 12/04/20 14:18 Pulse 86 12/04/20 15:00 Resp 21 H 12/04/20 14:18 BP 153/85 H 12/04/20 14:18 Pulse Ox 96 12/04/20 14:35 Body Mass Index 22.8 Appearance: Alert. Oriented X3. No acute distress. Anxious Eyes: Pupils equal, round and reactive to light. ENT: Pharynx normal. Neck: Normal inspection. Neck supple. CVS: Normal heart rate and rhythm. Pulses normal. Respiratory: No respiratory distress. Breath sounds exp wheezes mild faint diffuse Abdomen: Soft and moderate epigastric pain no rebound or guarding Skin: Skin warm and dry. Normal skin color. Normal skin turgor. Extremities: No lower extremity edema. No calf ttp Neuro: Oriented X 3. No motor deficit. No sensory deficit. Course Course Course Narrative: signed out to Dr. Cabrera pending further workup Medical Decision Making [facility] Narrative Medical decision making narrative: 60 yo female with hx of COPD/hydropneumothorax s/p chest tube placements, GERD, JOSIAH, respiratory failure, pneumonia, overdose in hospital resulting in aspiration pneumonia and intubation, she is taking motrin daily for knee pain (chronic) comes in with 3 days of dyspnea, epigastric pain taking daily NSAID no GIB symptoms at this time will need labs, CT abdomen for pancreatitis/duodenitis, neb treatment CT chest to evaluate for pneumonia - doubt PE at this time has no chest pain, requesting PO xanax prior to lab draw - dispo per results and findings. Lab Data Result diagrams: 12/04/20 15:37 12/04/20 15:37 Labs: Lab Results 12/04/20 12/04/20 12/04/20 Range/Units 15:37 15:37 15:42 WBC 7.6 (4.8-10.8) X10*3/uL RBC 5.07 D (4.20-5.50) X10*6/uL Hgb 13.0 D (12.0-16.0) g/dl Hct 40.5 D (37-47) % MCV 79.9 L (80-98) fL MCH 25.6 L (27.0-33.0) pg MCHC 32.1 (31.0-35.0) g/dl RDW 13.7 (11.0-16.0) % Plt Count 374 (160-400) X10*3/uL MPV 9.9 (9.4-12.3) fL Immature Gran % (Auto) 0.3 (0.0-0.4) % Neut % (Auto) 77.2 H (45-73) % Lymph % (Auto) 16.8 L (20-40) % [place] % (Auto) 4.6 (2-11) % Eos % (Auto) 0.4 (0-4) % Baso % (Auto) 0.7 (0-2) % Lymph # (Auto) 1.3 (1.2-4.9) X10*3/uL [place] # (Auto) 0.4 (0.1-1.2) X10*3/uL Eos # (Auto) 0.0 (0.0-0.4) X10*3/uL Baso # (Auto) 0.1 (0.0-0.2) X10*3/uL Abs Immat Gran (auto) 0.02 (0.00-0.03) X10*3/uL Absolute Neuts (auto) 5.8 (2.0-8.3) X10*3/uL Absolute Nucleated RBC 0.000 (0.0-0.012) X10*3/uL Nucleated RBC % (auto) 0.0 (0.0-0.2) /100WBC Hold Blue Top SEE NOTE VBG pH 7.42 (7.32-7.43) VBG pCO2 40 mmHg VBG pO2 42 mmHg VBG HCO3 26 (22-26) mmol/L VBG O2 Saturation 71.0 % VBG Base Excess 2.2 mmol/L ECG Data Attestation: I personally reviewed and interpreted this ECG as follows: Interpretation: Rate: 89 Rhythm: NSR Dahlgren: normal Normal P waves. Normal TRACIE. Normal QRS complex. ST T wave : no COLT, normal qTC: normal prior studies: no acute ischemia The study has been interpreted contemporaneously by me. . Discharge Plan Discharge Clinical Impression: Abdominal pain, Anxiety, Acute bronchospasm Prescriptions: No Action umeclidinium [Incruse Ellipta] 62.5 mcg/actuation blister with device 1 inh inhalation DAILY Qty: 30 RF: 6 fluticasone propionate [Flonase Allergy Relief] 50 mcg/actuation spray,suspension 1 spray intranasal BID 30 Days Qty: 1 RF: 6 alprazolam [Xanax] 1 mg Tablet 2 mg PO DAILY RF: 0 ipratropium-albuterol 0.5 mg-3 mg(2.5 mg base)/3 mL solution for nebulization 3 ml inhalation NEEDED RF: 0 sertraline 100 mg tablet 100 mg PO DAILY RF: 0 Flovent HFA 220 mcg/actuation HFA aerosol inhaler 2 puff inhalation BID RF: 0 ibuprofen 600 mg tablet 600 mg PO TID RF: 0 furosemide 40 mg Tablet 40 mg PO DAILY Qty: 30 RF: 0 albuterol sulfate [ProAir HFA] 90 mcg/actuation HFA aerosol inhaler 2 puff PO Q2H PRN (Reason: shortness of breath or wheezing) Qty: 8.5 RF: 0 hydroxyzine HCl 25 mg tablet 25 mg PO TID PRN (Reason: anxiety) 30 Days Qty: 60 RF: 0 omeprazole 40 mg capsule,delayed release(DR/EC) 40 mg PO DAILY 30 Days Qty: 30 RF: 6
[2020-12-04 14:37] VITALS: PULSE 84
[2020-12-04] MEDS: Albuterol Sulfate (0.083%) 2.5 MG/3 ML VIAL.NEB INHALE (14:59)
[2020-12-04 15:00] VITALS: PULSE 86; O2SAT 96
[2020-12-04] MEDS: ALPRAZolam 0.5 MG TABLET 1 MG PO (15:20)
--- NOTE | 2020-12-04 15:20 | PC.NURSE ---
Pt reporting being very anxious. Given po xanax at this time.
[2020-12-04] MEDS: Pantoprazole Sodium 40 MG/10 ML VIAL IVPUSH (15:43)
[2020-12-04] MEDS: methylPREDNISolone Sod Succ 125 MG/2 ML VIAL 60 MG IVPUSH (15:43)
[2020-12-04 15:45] LABS: MANUAL DIFF FLAG NO
[2020-12-04 15:50] LABS: Venous Blood Gas Refer to POC result
[2020-12-04 15:50] LABS: VBG Base Excess 2.2 mmol/L; VBG HCO3 26 mmol/L (22-26); VBG pCO2 40 mmHg; VBG pH 7.42 (7.32-7.43); VBG pO2 42 mmHg
[2020-12-04 15:50] LABS: Basophils Absolute Auto 0.1 X10*3/uL (0.0-0.2); Basophils Percent Auto 0.7 % (0-2); Eosinophils Percent Auto 0.4 % (0-4); Hematocrit 40.5 % (37-47); Imm Gran Abs Auto 0.02 X10*3/uL (0.00-0.03); Imm Gran Pct Auto 0.3 % (0.0-0.4); Lymphocytes Absolute Auto 1.3 X10*3/uL (1.2-4.9); Lymphocytes Percent Auto 16.8 % (20-40); Mean Corpuscular HGB Conc 32.1 g/dl (31.0-35.0); Mean Corpuscular Hemoglobin 25.6 pg (27.0-33.0); Mean Corpuscular Volume 79.9 fL (80-98); Mean Platelet Volume 9.9 fL (9.4-12.3); Monocytes Absolute Auto 0.4 X10*3/uL (0.1-1.2); Monocytes Percent Auto 4.6 % (2-11); Neutrophils Absolute Auto 5.8 X10*3/uL (2.0-8.3); Neutrophils Percent Auto 77.2 % (45-73); Platelet Count 374 X10*3/uL (160-400); Red Blood Count 5.07 X10*6/uL (4.20-5.50); Red Cell Distribution Width 13.7 % (11.0-16.0); White Blood Count 7.6 X10*3/uL (4.8-10.8)
[2020-12-04 16:07] LABS: Lactic Acid 1.3 mmol/L (0.5-2.0)
[2020-12-04 16:10] LABS: COVID-19 Test Negative (Negative)
[2020-12-04 16:13] LABS: Alanine Aminotransferase 13 U/L (0-31); Albumin Level 4.6 g/dL (3.5-5.0); Alkaline Phosphatase 102 U/L (39-117); Anion Gap 18 (12-20); Aspartate Amino Transferase 24 U/L (5-31); Bilirubin Direct 0.3 mg/dL (0.0-0.5); Bilirubin Total 0.7 mg/dL (0.0-1.0); Blood Urea Nitrogen 11 mg/dL (9-16); Calcium 9.8 mg/dL (8.4-10.2); Carbon Dioxide 24 mmol/L (22-29); Chloride 100 mmol/L (96-108); Creatinine Clr Calc Pharmacy 59.8; Estimated Glomerular Filt Rate > 60; Glucose Random 104 mg/dL (60-115); Lipase 34 U/L (8-78); Magnesium 1.8 mg/dL (1.6-2.6); Potassium 4.3 mmol/L (3.3-5.1); Sodium 138 mmol/L (135-145); Total Protein 8.8 g/dL (6.5-8.0)
[2020-12-04 16:15] LABS: B Type Natriuretic Peptide 18 pg/mL (<100); Troponin-I High Sensitivity 3.7 ng/L (<3.5-17.0)
[2020-12-04] MEDS: iohexoL 350 MG/ML 100 ML INFUS..BTL IV (17:04)
[2020-12-04 19:06] VITALS: BP 159/91; PULSE 80; RESP 20; O2SAT 93
--- NOTE | 2020-12-04 19:07 | PC.NURSE ---
Report taken from Lauren, this RN resuming care. Pt found laying in bed, pt requesting a heating pad and an extra pillow. Pt also requesting to speak with the MD, states she needs to leave by 2030 in order to get a ride home. VSS at this time. NSR on the monitor. Continue to monitor.
[2020-12-04] MEDS: Acetaminophen 325 MG TABLET 650 MG PO (19:32)
[2020-12-04] MEDS: HYDROmorphone HCl 0.5 MG/0.5 ML SYRINGE IVPUSH (20:01)
[2020-12-04 20:05] VITALS: BP 154/84; PULSE 85; RESP 20; O2SAT 94
== END 2020-12-04 20:47 | disposition home or self-care (01) ==
PROVIDERS: Emergency Medicine; Emergency Provider Emergency Medicine Emergency Medical Services
DX: J44.1 Chronic obstructive pulmonary disease with (acute) exacerbation (principal); J98.01 Acute bronchospasm; F41.9 Anxiety disorder, unspecified; M54.9 Dorsalgia, unspecified; R93.5 Abnormal findings on diagnostic imaging of other abdominal regions, including retroperitoneum; Z20.822 Contact with and (suspected) exposure to COVID-19; J90 Pleural effusion, not elsewhere classified; R59.9 Enlarged lymph nodes, unspecified; D25.9 Leiomyoma of uterus, unspecified; J98.11 Atelectasis; Q61.01 Congenital single renal cyst; Z87.01 Personal history of pneumonia (recurrent); Z79.899 Other long term (current) drug therapy
CPT/HCPCS: 36415; 71260; 74177; 80048; 80076; 83605; 83690; 83735; 83880; 84484; 85025; 87040; 87635; 93005; 94640; 96374; 96375; 99284; 99285; J1170; J2930; Q9967

== ENCOUNTER 2021-03-31 11:54 | Emergency (ER) | payer OTHER, SELFPAY ==
--- NOTE | ~2021-03-31 | XR_ITS ---
EXAMINATION: XR CHEST CLINICAL INFORMATION: SOB COMPARISON: CT chest 12/04/2020. TECHNIQUE: Frontal view of the chest was obtained. FINDINGS: The lungs are well-expanded with increased interstitial markings in both lungs without consolidation or pleural effusion. The heart size and pulmonary vascularity is normal. No gross bony abnormality seen. XR/XR chest 1V IMPRESSION: Slight increased interstitial markings without acute process.
--- NOTE | 2021-03-31 12:09 | ECG_ITS ---
Test Reason : DYSPNEA Blood Pressure : / mmHG Vent. Rate : 072 BPM Atrial Rate : 072 BPM P-R Int : 132 ms QRS Dur : 090 ms QT Int : 412 ms P-R-T Axes : 080 028 057 degrees QTc Int : 451 ms Normal sinus rhythm Normal ECG When compared with ECG of 04-DEC-2020 14:20, No significant change was found Referred By: Dayne Baldwin Electronically Signed By:JACOBY DURHAM
[2021-03-31 12:10] VITALS: BP 145/102; BP 166/71; PULSE 77; PULSE 88; RESP 18; TEMP 36.9; O2SAT 96; O2SAT 98; BMI 23.8
--- NOTE | 2021-03-31 12:13 | ED.SOB ---
HPI - SOB/Dyspnea General Chief Complaint: Dyspnea Stated Complaint: DIFF BREATHING X'S 2 DAYS Time Seen by Provider: 03/31/21 12:08 Source: patient Mode of arrival: ambulatory Limitations: no limitations History of Present Illness HPI Narrative: 60-year-old female history of COPD/pneumonia/pneumothorax came in for 2 days history of difficulty breathing and wheezing. Symptoms started 2 days ago with shortness of breath, declined any fever chills, no coughing, no associated chest pain, however because of shortness of breath and wheezing triggered patient's anxiety. Patient declined fever, chills, chest pain. Patient was given DuoNeb by EMS and patient reported subjective improvement. Related Data Home Medications Medication Instructions Recorded Confirmed ibuprofen 600 mg tablet 600 mg PO TID 06/19/20 07/17/20 ipratropium 0.5 mg-albuterol 3 mg 3 ml INHALATION NEEDED 06/19/20 07/17/20 (2.5 mg base)/3 mL nebulization soln sertraline 100 mg tablet 100 mg PO DAILY 06/19/20 07/17/20 alprazolam 1 mg tablet (Xanax) 2 mg PO DAILY 07/17/20 07/17/20 Previous Rx's Medication Instructions Recorded furosemide 40 mg tablet 40 mg PO DAILY #30 tab 07/14/20 hydroxyzine HCl 25 mg tablet 25 mg PO TID PRN 30 Days #60 tab 11/25/20 omeprazole 40 mg capsule,delayed 40 mg PO DAILY 30 Days #30 cap 11/25/20 release fluticasone propionate 50 1 spray INTRANASAL BID 30 Days #1 11/27/20 mcg/actuation nasal ea spray,suspension (Flonase Allergy Relief) hydromorphone 2 mg tablet 2 mg PO Q6H PRN #10 tab 12/04/20 (Dilaudid) prednisone 20 mg tablet 60 mg PO DAILY 7 Days #21 tab 12/04/20 fluticasone propionate 220 1 puff PO BID #12 g 02/18/21 mcg/actuation HFA aerosol inhaler (Flovent HFA) ProAir HFA 90 mcg/actuation 2 puff INHALATION Q2H PRN 30 Days 03/05/21 aerosol inhaler (albuterol sulfate) #8.5 g NS umeclidinium 62.5 mcg/actuation 1 inh INHALATION DAILY 30 Days #30 03/05/21 blister powder for inhalation cap (Incruse Ellipta) prednisone 20 mg tablet 20 mg PO BID #10 tab 03/31/21 Allergies Allergy/AdvReac Type Severity Reaction Status Date / Time latex Allergy Unknown Verified 11/25/20 11:32 Review of Systems Review of Systems: All other systems are reviewed and are negative Constitutional: Reports as per HPI and Reports no additional constitutional complaints Eyes: Reports as per HPI and Reports no additional eye complaints Reports system reviewed and no additional complaints, except as documented Cardiovascular: Reports as per HPI and Reports no additional cardiovascular complaints Respiratory: Reports as per HPI and Reports no additional respiratory complaints Gastrointestinal: Reports as per HPI and Reports no additional gastrointestinal complaints Genitourinary: Reports no additional female genitourinary complaints Musculoskeletal: Reports no additional musculoskeletal complaints Skin/Breast: Reports system reviewed and no additional complaints, except as docu Psychiatric: Reports no additional psychiatric complaints Endocrine: Reports no additional endocrine complaints Hematologic/Lymphatic: Reports no additional hematologic/lymphatic complaints Allergic/Immunologic: Reports no additional allergic/immunologic complaints Reports system reviewed and no additional complaints, except as documented and Reports Abnormal speech present [facility] Past Medical History Medical History Anxiety Asthma with COPD (chronic obstructive pulmonary disease) Atelectasis of left lung Atelectasis of left lung Cavitary pneumonia Pneumothorax on left Family History Family History Other Family history non-contributory Social History Social History Household Members: Spouse and Children Housing: House Do you presently have visiting nurse or other home services: No Alcohol intake: never Patient Tobacco Use Status: Former Tobacco user Smoked in Last 30 Days: No Use of substances other than those prescribed or required for medical reasons: No Advance Directives: Yes Advance Directives Information Provided: No Advance Directives on File: No service: No Current occupational status: unemployed Physical Exam Vital Signs: Vital Signs: Last Vital Signs Temp 98.2 F 03/31/21 13:56 Pulse 89 03/31/21 13:56 Resp 19 03/31/21 13:56 BP 144/71 H 03/31/21 13:56 Pulse Ox 95 03/31/21 13:56 Body Mass Index 23.8 Vital signs have been reviewed as appeared to be correct. Blood pressure normal. Heart rate normal. Respiration rate normal. Temperature normal. Oxygen saturation normal. Appearance: Alert. Oriented X3. No acute distress. Appear anxious Head: Normal external exam. Normocephalic. Atraumatic. No [place] signs noted. No raccoon eyes noted Eyes: PERRLA. EOMI. Conjunctiva and sclera normal. Eyelids normal. ENT: TM's Normal. Pharynx normal. Uvula midline. Moist mucous membranes. No trismus noted. No drooling noted. No muffled voice noted. Neck: Normal inspection. Neck supple. FROM. No adenopathy. Thyroid Normal. No meningeal signs. No neck mass noted. CVS: Normal heart rate and rhythm. Heart sound normal. No murmurs noted. Pulses normal throughout. Respiratory: No respiratory distress. Painless inspiration. Breath sounds normal. Diffuse mild expiratory wheezing, with prolonged expiratory phase. No accessory muscle usage noted or decreased air movement noted. Abdomen: Soft and nontender. Bowel sounds normal in all 4 quadrants. No distention noted. No organomegaly noted. No visible injury noted. Back: No CVA tenderness. Full range of motion noted. Skin: Skin warm and dry. Normal skin color. Normal skin turgor. No rashes/lesions/lacerations noted. Extremities: No lower extremity edema. Extremities exhibit normal range of motion. Extremities nontender. Neuro: Oriented X 3. Cranial nerve exam: II-XII are grossly intact No motor deficit. No sensory deficit. Reflexes normal. Course Course Course Narrative: Assessment and plan. 60-year-old female came in for difficulty breathing for the past 2 days. Patient was anxious and concerned of having pneumonia and pneumothorax as she had in the past. Physical exam/history/chest x-ray consistent with COPD exacerbation. Patient feels better satting 95-96% on room air and appeared more comfortable. Will discharge on few days of prednisone. Patient appear anxious in the emergency department given 2 doses of Ativan p.o. that improved the patient's symptoms. MDM - SOB/Dyspnea Lab Data Attestation: I reviewed the patient's lab results. Result diagrams: 03/31/21 12:35 03/31/21 12:34 Labs: Lab Results 03/31/21 03/31/21 03/31/21 Range/Units 12:34 12:34 12:35 WBC 7.2 (4.8-10.8) X10*3/uL RBC 4.90 (4.20-5.50) X10*6/uL Hgb 12.6 (12.0-16.0) g/dl Hct 40.3 (37-47) % MCV 82.2 (80-98) fL MCH 25.7 L (27.0-33.0) pg MCHC 31.3 (31.0-35.0) g/dl RDW 13.8 (11.0-16.0) % Plt Count 249 D (160-400) X10*3/uL MPV 10.3 (9.4-12.3) fL Immature Gran % (Auto) 0.3 (0.0-0.4) % Neut % (Auto) 72.0 (45-73) % Lymph % (Auto) 18.5 L (20-40) % [place] % (Auto) 5.3 (2-11) % Eos % (Auto) 3.1 (0-4) % Baso % (Auto) 0.8 (0-2) % Lymph # (Auto) 1.3 (1.2-4.9) X10*3/uL [place] # (Auto) 0.4 (0.1-1.2) X10*3/uL Eos # (Auto) 0.2 (0.0-0.4) X10*3/uL Baso # (Auto) 0.1 (0.0-0.2) X10*3/uL Abs Immat Gran (auto) 0.02 (0.00-0.03) X10*3/uL Absolute Neuts (auto) 5.2 (2.0-8.3) X10*3/uL Absolute Nucleated RBC 0.000 (0.0-0.012) X10*3/uL Nucleated RBC % (auto) 0.0 (0.0-0.2) /100WBC Sodium 143 (135-145) mmol/L Potassium 3.8 (3.3-5.1) mmol/L Chloride 103 (96-108) mmol/L Carbon Dioxide 29 (22-29) mmol/L Anion Gap 15 (12-20) BUN 5 L D (9-16) mg/dL Creatinine 0.73 (0.5-1.4) mg/dL Estim Creat Clear Calc 66.4 Estimated GFR > 60 Random Glucose 106 (60-115) mg/dL Calcium 9.4 (8.4-10.2) mg/dL Total Bilirubin (0.0-1.0) mg/dL Direct Bilirubin (0.0-0.5) mg/dL AST (5-31) U/L ALT (0-31) U/L Alkaline Phosphatase (39-117) U/L Troponin I High Sens 4.4 (<3.5-17.0) ng/L B-Natriuretic Peptide 27 (<100) pg/mL Total Protein (6.5-8.0) g/dL Albumin (3.5-5.0) g/dL Lipase (8-78) U/L COVID-19 (PAVEL) (Negative) COVID-19 Clin Com 03/31/21 03/31/21 Range/Units 12:35 12:35 WBC (4.8-10.8) X10*3/uL RBC (4.20-5.50) X10*6/uL Hgb (12.0-16.0) g/dl Hct (37-47) % MCV (80-98) fL MCH (27.0-33.0) pg MCHC (31.0-35.0) g/dl RDW (11.0-16.0) % Plt Count (160-400) X10*3/uL MPV (9.4-12.3) fL Immature Gran % (Auto) (0.0-0.4) % Neut % (Auto) (45-73) % Lymph % (Auto) (20-40) % [place] % (Auto) (2-11) % Eos % (Auto) (0-4) % Baso % (Auto) (0-2) % Lymph # (Auto) (1.2-4.9) X10*3/uL [place] # (Auto) (0.1-1.2) X10*3/uL Eos # (Auto) (0.0-0.4) X10*3/uL Baso # (Auto) (0.0-0.2) X10*3/uL Abs Immat Gran (auto) (0.00-0.03) X10*3/uL Absolute Neuts (auto) (2.0-8.3) X10*3/uL Absolute Nucleated RBC (0.0-0.012) X10*3/uL Nucleated RBC % (auto) (0.0-0.2) /100WBC Sodium (135-145) mmol/L Potassium (3.3-5.1) mmol/L Chloride (96-108) mmol/L Carbon Dioxide (22-29) mmol/L Anion Gap (12-20) BUN (9-16) mg/dL Creatinine (0.5-1.4) mg/dL Estim Creat Clear Calc Estimated GFR Random Glucose (60-115) mg/dL Calcium (8.4-10.2) mg/dL Total Bilirubin 0.6 (0.0-1.0) mg/dL Direct Bilirubin 0.2 (0.0-0.5) mg/dL AST 14 D (5-31) U/L ALT 7 (0-31) U/L Alkaline Phosphatase 101 (39-117) U/L Troponin I High Sens (<3.5-17.0) ng/L B-Natriuretic Peptide (<100) pg/mL Total Protein 6.8 D (6.5-8.0) g/dL Albumin 4.0 (3.5-5.0) g/dL Lipase 16 (8-78) U/L COVID-19 (PAVEL) Negative (Negative) COVID-19 Clin Com See Note Imaging Data Chest x-ray: Radiologist's impression: Slight increased interstitial markings without acute process. ? ECG Data Interpretation: Normal sinus rhythm at 72 beats per minutes, normal intervals, no ST-T changes. Discharge Plan Discharge Clinical Impression: COPD exacerbation, Anxiety Patient Disposition: Home, Self-Care Instructions: COPD (Chronic Obstructive Pulmonary Disease) (ED) Prescriptions: New prednisone 20 mg tablet 20 mg PO BID Qty: 10 RF: 0 No Action fluticasone propionate [Flonase Allergy Relief] 50 mcg/actuation spray,suspension 1 spray intranasal BID 30 Days Qty: 1 RF: 6 Flovent HFA 220 mcg/actuation HFA aerosol inhaler 1 puff PO BID Qty: 12 RF: 11 albuterol sulfate [ProAir HFA] 90 mcg/actuation HFA aerosol inhaler 2 puff inhalation Q2H PRN (Reason: for wheezing) 30 Days Qty: 8.5 RF: 6 Incruse Ellipta 62.5 mcg/actuation blister with device 1 inh inhalation DAILY 30 Days Qty: 30 RF: 6 alprazolam [Xanax] 1 mg Tablet 2 mg PO DAILY RF: 0 hydromorphone [Dilaudid] 2 mg tablet 2 mg PO Q6H PRN (Reason: pain) Qty: 10 RF: 0 prednisone 20 mg tablet 60 mg PO DAILY 7 Days Qty: 21 RF: 0 ipratropium-albuterol 0.5 mg-3 mg(2.5 mg base)/3 mL solution for nebulization 3 ml inhalation NEEDED RF: 0 sertraline 100 mg tablet 100 mg PO DAILY RF: 0 ibuprofen 600 mg tablet 600 mg PO TID RF: 0 furosemide 40 mg Tablet 40 mg PO DAILY Qty: 30 RF: 0 hydroxyzine HCl 25 mg tablet 25 mg PO TID PRN (Reason: anxiety) 30 Days Qty: 60 RF: 0 omeprazole 40 mg capsule,delayed release(DR/EC) 40 mg PO DAILY 30 Days Qty: 30 RF: 6 Referrals: Physician,None [Primary Care Provider] - 2 days
[2021-03-31] MEDS: LORazepam 1 MG TABLET PO ×2 (12:22→14:54)
[2021-03-31] MEDS: methylPREDNISolone Sod Succ 125 MG/2 ML VIAL IVPUSH (12:22)
[2021-03-31] MEDS: Magnesium Sulfate/H2O 2 GM/50 ML PIGGYBACK IV (12:22)
[2021-03-31 12:41] LABS: MANUAL DIFF FLAG NO
[2021-03-31 12:43] LABS: Basophils Absolute Auto 0.1 X10*3/uL (0.0-0.2); Basophils Percent Auto 0.8 % (0-2); Eosinophils Absolute Auto 0.2 X10*3/uL (0.0-0.4); Eosinophils Percent Auto 3.1 % (0-4); Hematocrit 40.3 % (37-47); Hemoglobin 12.6 g/dl (12.0-16.0); Imm Gran Abs Auto 0.02 X10*3/uL (0.00-0.03); Imm Gran Pct Auto 0.3 % (0.0-0.4); Lymphocytes Absolute Auto 1.3 X10*3/uL (1.2-4.9); Lymphocytes Percent Auto 18.5 % (20-40); Mean Corpuscular HGB Conc 31.3 g/dl (31.0-35.0); Mean Corpuscular Hemoglobin 25.7 pg (27.0-33.0); Mean Corpuscular Volume 82.2 fL (80-98); Mean Platelet Volume 10.3 fL (9.4-12.3); Monocytes Absolute Auto 0.4 X10*3/uL (0.1-1.2); Monocytes Percent Auto 5.3 % (2-11); Neutrophils Absolute Auto 5.2 X10*3/uL (2.0-8.3); Platelet Count 249 X10*3/uL (160-400); Red Cell Distribution Width 13.8 % (11.0-16.0); White Blood Count 7.2 X10*3/uL (4.8-10.8)
[2021-03-31 12:57] LABS: COVID-19 Test Negative (Negative)
[2021-03-31 12:57] LABS: Anion Gap 15 (12-20); Blood Urea Nitrogen 5 mg/dL (9-16); Calcium 9.4 mg/dL (8.4-10.2); Carbon Dioxide 29 mmol/L (22-29); Chloride 103 mmol/L (96-108); Creatinine Clr Calc Pharmacy 66.4; Estimated Glomerular Filt Rate > 60; Glucose Random 106 mg/dL (60-115); Potassium 3.8 mmol/L (3.3-5.1); Sodium 143 mmol/L (135-145)
[2021-03-31 12:58] LABS: Alanine Aminotransferase 7 U/L (0-31); Alkaline Phosphatase 101 U/L (39-117); Aspartate Amino Transferase 14 U/L (5-31); Bilirubin Direct 0.2 mg/dL (0.0-0.5); Bilirubin Total 0.6 mg/dL (0.0-1.0); Lipase 16 U/L (8-78); Total Protein 6.8 g/dL (6.5-8.0)
[2021-03-31 13:03] LABS: B Type Natriuretic Peptide 27 pg/mL (<100); Troponin-I High Sensitivity 4.4 ng/L (<3.5-17.0)
[2021-03-31] MEDS: Albuterol/Iprat 2.5/0.5MG 3 ML AMPUL.NEB INHALE (13:14)
[2021-03-31] MEDS: Albuterol Sulfate (0.083%) 2.5 MG/3 ML VIAL.NEB INHALE (13:14)
[2021-03-31 13:16] VITALS: PULSE 73; O2SAT 96
[2021-03-31 13:56] VITALS: BP 144/71; PULSE 89; RESP 19; TEMP 36.8; O2SAT 95
[2021-03-31 14:39] VITALS: BP 152/71; PULSE 91; RESP 20; TEMP 37; O2SAT 91
[2021-03-31 14:55] VITALS: O2SAT 92
== END 2021-03-31 14:58 | disposition home or self-care (01) ==
PROVIDERS: Emergency Provider Emergency Medicine
DX: J44.1 Chronic obstructive pulmonary disease with (acute) exacerbation (principal); F41.9 Anxiety disorder, unspecified; R06.02 Shortness of breath; Z20.822 Contact with and (suspected) exposure to COVID-19
CPT/HCPCS: 36415; 71045; 80048; 80076; 83690; 83880; 84484; 85025; 87635; 93005; 94640; 96365; 96366; 96375; 99284; J2930; J3475

== ENCOUNTER 2022-03-24 06:31 | Inpatient (IN) | payer OTHER, SELFPAY ==
[2022-03-24] VITALS (16 sets, daily range): BP systolic 87–143; BP diastolic 41–80; PULSE 67–98; RESP 12–18; TEMP 36.6–37.1; O2SAT 92–98; BMI 23.8; BMI 24.5
--- NOTE | ~2022-03-24 | CT_ITS ---
EXAMINATION: CT ANGIOGRAM OF THE CHEST WITH AND WITHOUT CONTRAST (CT PULMONARY ANGIOGRAM FOR PE) CLINICAL INFORMATION: Reason for Exam sob COMPARISON: CT chest dated 12/05/2019 TECHNIQUE: Prior to contrast administration, noncontrast localization images were obtained. Subsequently, multidetector volumetric imaging was performed from the thoracic inlet to below the diaphragms following the administration of 75 mL Omnipaque 350 intravenous contrast. No contrast reaction reported Sagittal, coronal, and MIP oblique sagittal reformatted images were obtained on the CT workstation, uploaded to PACS, and reviewed. This CT examination was performed using dose optimization techniques as appropriate, variously including the following: *Automated exposure control *Adjustment of mA and/or kV according to patient size (this includes techniques or standardized protocols for targeted exams where dose is matched to indication/reason for exam; i.e. extremities or head) *Use of iterative reconstruction technique Total exam dose-length product 197 mGy-cm FINDINGS: QUALITY OF STUDY/CONTRAST BOLUS: Satisfactory. PULMONARY ARTERIES: No central or segmental pulmonary emboli. THORACIC AORTA: No aneurysm or dissection. LUNG/PLEURA: Again seen is volume loss of the left lung, particularly lobe associated chronic pleural parenchymal scarring within the lingula and left lower lobe, as well as a chronic trace left pleural effusion. Moderate emphysema and diffuse mild bronchial thickening with scattered endobronchial secretions. No acute pneumonitis or parenchymal consolidation. No pneumothorax. MEDIASTINUM/ROGERIO: Mild cardiomegaly. No pericardial effusion. No hilar or mediastinal lymphadenopathy. No evidence of septal bowing or right heart strain. CHEST WALL/AXILLA: No axillary or internal mammary lymphadenopathy. OSSEOUS STRUCTURES: No acute or suspicious osseous abnormality. UPPER ABDOMEN: Cholecystectomy CT/CT angio chest PE protocol IMPRESSION: * No pulmonary embolism. * Moderate emphysema and chronic airways disease with scattered endobronchial secretions. * Chronic right pleural scarring within left lower lung and accompanying volume loss and chronic trace pleural fluid. VTE: negative
--- NOTE | ~2022-03-24 | XR_ITS ---
EXAMINATION: XR CHEST CLINICAL INFORMATION: Follow-up bibasilar atelectasis COMPARISON: Previous chest x-ray most recent from earlier the same day TECHNIQUE: 2 views of the chest were obtained. FINDINGS: The cardiac and mediastinal contours are stable. There is linear scarring or subsegmental atelectasis at the left lung base. The right lung is clear. There is blunting of the left costophrenic angle questionable for small left pleural effusion or pleural thickening. There is no right pleural effusion. There is no pneumothorax. Bony structures are unremarkable. XR/XR chest 2V IMPRESSION: Small left pleural effusion or pleural thickening and linear scarring or chronic subsegmental atelectasis at the left lung base.
--- NOTE | ~2022-03-24 | XR_ITS ---
EXAMINATION: XR CHEST CLINICAL INFORMATION: Shortness of breath and wheezing COMPARISON: 03/31/2021 TECHNIQUE: Frontal view of the chest was obtained. FINDINGS: Linear atelectasis at the lung bases appears more prominent. This could be technical due to patient obliquity. I would recommend a repeat examination as a well centered PA and lateral when clinically feasible. Heart and pulmonary vessels normal. Lungs do appear to be hyperaerated. There is degenerative change in both shoulder joints. XR/XR chest 1V IMPRESSION: Increasing minor atelectatic changes at the lung bases.
--- NOTE | 2022-03-24 06:52 | ED.SOB ---
HPI - SOB/Dyspnea General Chief Complaint: Dyspnea Stated Complaint: SOB Time Seen by Provider: 03/24/22 06:52 Source: patient Mode of arrival: ambulatory Limitations: no limitations History of Present Illness HPI Narrative: Increasing shortness of breath over this past week, cant ambulate without feeling shortness of breath, there is a cough. Patient denies fever. Patient with intermittent smoking. Patient is not on oxygen at home. MD elicited complaint: shortness of breath and cough Pertinent past history: COPD Onset (ago): week(s) Timing: constant Severity: moderate Exacerbating factors: exertion Known history of: COPD Treatment prior to arrival: none Related Data Home Medications Medication Instructions Recorded Confirmed aclidinium bromide 400 1 inh inhalation BID 03/24/22 03/24/22 mcg/actuation breath activated powder inhaler (Tudorza Pressair) albuterol sulfate 90 mcg/actuation 2 puff inhalation Q4H PRN Wheezing 03/24/22 03/24/22 aerosol inhaler (ProAir HFA) ciclesonide 160 mcg/actuation 1 puff inhalation DAILY 03/24/22 03/24/22 aerosol inhaler clonidine HCl 0.1 mg tablet 1 tab PO BEDTIME 03/24/22 03/24/22 fluoxetine 20 mg capsule 2 cap PO QAM 03/24/22 03/24/22 methadone 10 mg/mL oral concentrate 120 mg PO DAILY 03/24/22 03/24/22 pantoprazole 40 mg tablet,delayed 1 tab PO DAILY 03/24/22 03/24/22 release trazodone 100 mg tablet 2 tab PO BEDTIME 03/24/22 03/24/22 Allergies Allergy/AdvReac Type Severity Reaction Status Date / Time latex Allergy Unknown Verified 11/25/20 11:32 Review of Systems Constitutional: Constitutional: Reports no additional constitutional complaints Eyes: Eyes: Reports no additional eye complaints ENT: Denies dizziness Cardiovascular: Cardiovascular: Reports no additional cardiovascular complaints Respiratory: Respiratory: Reports as per HPI Gastrointestinal: Gastrointestinal: Reports no additional gastrointestinal complaints Genitourinary: Genitourinary: Reports no additional female genitourinary complaints Musculoskeletal: Musculoskeletal: Reports no additional musculoskeletal complaints Integumentary/Breasts: Skin/Breast: Denies rash Neurologic: Reports system reviewed and no additional complaints, except as documented, Denies dizziness and Denies Sensory deficit (Neuro) Psychiatric: Psychiatric: Denies anxiety PMFSH Past Medical History Medical History Anxiety Asthma with COPD (chronic obstructive pulmonary disease) Atelectasis of left lung Atelectasis of left lung Cavitary pneumonia Pneumothorax on left Family History Family History Other Family history non-contributory Social History Social History Household Members: Spouse and Children Housing: House Do you presently have visiting nurse or other home services: No Alcohol intake: never Patient Tobacco Use Status: Former Tobacco user Use of substances other than those prescribed or required for medical reasons: No Advance Directives: No service: No Current occupational status: unemployed Physical Exam Vital Signs: Vital Signs: Last Vital Signs Temp 98.7 F 03/24/22 09:27 Pulse 86 03/24/22 11:27 Resp 18 03/24/22 11:27 BP 132/70 03/24/22 11:27 Pulse Ox 94 03/24/22 11:27 O2 Del Method 03/24/22 11:27 O2 Flow Rate 2 03/24/22 11:27 Oxygen Flow Rate 2 03/24/22 06:41 BMI result Body Mass Index 24.5 Const: Other: female looking older than stated age Nutritional Appearance: average body habitus Orientation/consciousness: oriented to person and patient oriented x3 Limitations: no limitations HEENT: Head: Yes normal to inspection Ears: external ears normal General nose exam: Normal external nose present Mouth: Normal oral and palatal mucosa present and oropharynx normal Throat: Yes posterior oropharynx normal Eyes: General: appearance normal, both eyes and all related structures Neck: Other: supple Neck: Yes normal visual inspection Chest: Chest palpation & inspection: normal inspection of the chest Resp: Other: diffuse wheezing bilaterally Cardio: Jugular venous distension: no JVD Rate: regular rate Rhythm: regular rhythm Heart sounds: S1 normal heart sound present and S2 normal heart sound present GI: Inspection: Yes normal to inspection Palpation (GI): Soft to palpation, nontender and No hepatosplenomegaly present Auscultation: normal bowel sounds : General: Yes no CVA tenderness Back/Spine/Pelvis: Back: no CVA tenderness Skin: General skin exam: no rashes or lesions noted Neuro: General: oriented to person and patient oriented x3 Cranial nerves: Yes CN's II-XII intact bilaterally Motor exam (neuro): 5/5 motor strength present throughout Sensory Exam: No Sensory deficit (Neuro) Extrem: General: Yes normal to inspection Psych: Appearance: grossly normal Course Reevaluation(s) Reevaluation #1: patient with COPD exacerbation, EKG not ischemic, however, troponin 547. Will start heparin and admit. Dicussed with Dr. Emmanuel Time: 08:32 Reevaluation #2: patient with no evidence of infection, no elevated WBC, clear xray, no fever. Will not give antibiotics at this time Time: 08:37 Reevaluation #3: repeat EKG sinus 68, no st or twave changes Time: 08:55 MDM - SOB/Dyspnea Lab Data Result diagrams: 03/24/22 09:59 03/24/22 07:08 Labs: Lab Results 03/24/22 03/24/22 03/24/22 Range/Units 07:08 07:08 07:08 WBC 11.8 H (4.8-10.8) X10*3/uL RBC 5.11 (4.20-5.50) X10*6/uL Hgb 13.3 (12.0-16.0) g/dl Hct 41.8 (37.0-47.0) % MCV 81.8 (80.0-98.0) fL MCH 26.0 L (27.0-33.0) pg MCHC 31.8 (31.0-35.0) g/dl RDW 13.2 (11.0-16.0) % Plt Count 346 (160-400) X10*3/uL MPV 9.8 (9.4-12.3) fL Immature Gran % (Auto) 0.3 (0.0-0.4) % Neut % (Auto) 80.5 H (45-73) % Lymph % (Auto) 11.7 L (20-40) % [place] % (Auto) 6.6 (2-11) % Eos % (Auto) 0.3 (0-4) % Baso % (Auto) 0.6 (0-2) % Lymph # (Auto) 1.4 (1.2-4.9) X10*3/uL [place] # (Auto) 0.8 (0.1-1.2) X10*3/uL Eos # (Auto) 0.0 (0.0-0.4) X10*3/uL Baso # (Auto) 0.1 (0.0-0.2) X10*3/uL Abs Immat Gran (auto) 0.04 H (0.00-0.03) X10*3/uL Absolute Neuts (auto) 9.5 H (2.0-8.3) x10*3/uL Absolute Nucleated RBC 0.000 (0.0-0.012) X10*3/uL Nucleated RBC % (auto) 0.0 (0.0-0.2) /100WBC Sodium 141 (135-145) mmol/L Potassium 4.4 (3.3-5.1) mmol/L Chloride 100 (96-108) mmol/L Carbon Dioxide 27 (22-29) mmol/L Anion Gap 18 (12-20) BUN 13 (9-16) mg/dL Creatinine 0.78 (0.5-1.4) mg/dL Estim Creat Clear Calc 61.4 Estimated GFR > 60 Random Glucose 98 (60-115) mg/dL Calcium 9.3 (8.4-10.2) mg/dL Troponin I High Sens 547.0 H* (<3.5-17.0) ng/L Influenza Type A (PCR) (Negative) Influenza Type B (PCR) (Negative) RSV RNA Qual (PCR) (Negative) SARS-CoV-2 RNA (RT-PCR) (Negative) 03/24/22 Range/Units 07:10 WBC (4.8-10.8) X10*3/uL RBC (4.20-5.50) X10*6/uL Hgb (12.0-16.0) g/dl Hct (37.0-47.0) % MCV (80.0-98.0) fL MCH (27.0-33.0) pg MCHC (31.0-35.0) g/dl RDW (11.0-16.0) % Plt Count (160-400) X10*3/uL MPV (9.4-12.3) fL Immature Gran % (Auto) (0.0-0.4) % Neut % (Auto) (45-73) % Lymph % (Auto) (20-40) % [place] % (Auto) (2-11) % Eos % (Auto) (0-4) % Baso % (Auto) (0-2) % Lymph # (Auto) (1.2-4.9) X10*3/uL [place] # (Auto) (0.1-1.2) X10*3/uL Eos # (Auto) (0.0-0.4) X10*3/uL Baso # (Auto) (0.0-0.2) X10*3/uL Abs Immat Gran (auto) (0.00-0.03) X10*3/uL Absolute Neuts (auto) (2.0-8.3) x10*3/uL Absolute Nucleated RBC (0.0-0.012) X10*3/uL Nucleated RBC % (auto) (0.0-0.2) /100WBC Sodium (135-145) mmol/L Potassium (3.3-5.1) mmol/L Chloride (96-108) mmol/L Carbon Dioxide (22-29) mmol/L Anion Gap (12-20) BUN (9-16) mg/dL Creatinine (0.5-1.4) mg/dL Estim Creat Clear Calc Estimated GFR Random Glucose (60-115) mg/dL Calcium (8.4-10.2) mg/dL Troponin I High Sens (<3.5-17.0) ng/L Influenza Type A (PCR) NEGATIVE (Negative) Influenza Type B (PCR) NEGATIVE (Negative) RSV RNA Qual (PCR) NEGATIVE (Negative) SARS-CoV-2 RNA (RT-PCR) NEGATIVE (Negative) ECG Data Attestation: I personally reviewed and interpreted this ECG as follows: Interpretation: sinus [address] or twave changes Discharge Plan Discharge Clinical Impression: COPD exacerbation, Cardiac ischemia Patient Disposition: Admitted As Inpatient
--- NOTE | 2022-03-24 06:57 | ECG_ITS ---
Test Reason : DYSPNEA Blood Pressure : / mmHG Vent. Rate : 068 BPM Atrial Rate : 068 BPM P-R Int : 122 ms QRS Dur : 082 ms QT Int : 494 ms P-R-T Axes : 086 -09 066 degrees QTc Int : 525 ms Normal sinus rhythm Possible Left atrial enlargement Nonspecific T wave abnormality Prolonged QT Abnormal ECG When compared with ECG of 31-MAR-2021 12:26, Nonspecific T wave abnormality now evident in Anterior leads QT has lengthened Referred By: Kvng Jaramillo Electronically Signed By:JACOBY DURHAM
[2022-03-24 07:12] LABS: MANUAL DIFF FLAG NO
[2022-03-24 07:15] LABS: Basophils Absolute Auto 0.1 X10*3/uL (0.0-0.2); Basophils Percent Auto 0.6 % (0-2); Eosinophils Percent Auto 0.3 % (0-4); Hematocrit 41.8 % (37.0-47.0); Hemoglobin 13.3 g/dl (12.0-16.0); Imm Gran Abs Auto 0.04 X10*3/uL (0.00-0.03); Imm Gran Pct Auto 0.3 % (0.0-0.4); Lymphocytes Absolute Auto 1.4 X10*3/uL (1.2-4.9); Lymphocytes Percent Auto 11.7 % (20-40); Mean Corpuscular HGB Conc 31.8 g/dl (31.0-35.0); Mean Corpuscular Volume 81.8 fL (80.0-98.0); Mean Platelet Volume 9.8 fL (9.4-12.3); Monocytes Absolute Auto 0.8 X10*3/uL (0.1-1.2); Monocytes Percent Auto 6.6 % (2-11); Neutrophils Absolute Auto 9.5 x10*3/uL (2.0-8.3); Neutrophils Percent Auto 80.5 % (45-73); Platelet Count 346 X10*3/uL (160-400); Red Blood Count 5.11 X10*6/uL (4.20-5.50); Red Cell Distribution Width 13.2 % (11.0-16.0); White Blood Count 11.8 X10*3/uL (4.8-10.8)
[2022-03-24] MEDS: Albuterol/Iprat 2.5/0.5MG 3 ML AMPUL.NEB INHALE ×3 (07:21→15:31)
[2022-03-24 07:38] LABS: Anion Gap 18 (12-20); Blood Urea Nitrogen 13 mg/dL (9-16); Calcium 9.3 mg/dL (8.4-10.2); Carbon Dioxide 27 mmol/L (22-29); Chloride 100 mmol/L (96-108); Creatinine Clr Calc Pharmacy 61.4; Estimated Glomerular Filt Rate > 60; Glucose Random 98 mg/dL (60-115); Potassium 4.4 mmol/L (3.3-5.1); Sodium 141 mmol/L (135-145)
[2022-03-24] MEDS: methylPREDNISolone Sod Succ 125 MG/2 ML VIAL IVPUSH (07:51)
--- NOTE | 2022-03-24 07:59 | PC.NURSE ---
pt is a/o x 4. c/o sob, duoneb tx done. lungs - coarse exp wheezing all lobes. c/o l lateral chest pain 01/31. speaks in full sentences. pt is legally blind. at bedside. heart sounds - regular. abd sot, n/t. pt aware of plan of care.
[2022-03-24] MEDS: Aspirin Enteric Coated 325 MG TABLET.DR PO (08:11)
[2022-03-24] MEDS: Nitroglycerin 2 % Oint 1 GM Packet 1 INCH TRANSDERMA (08:11)
--- NOTE | 2022-03-24 08:34 | ECG_ITS ---
Test Reason : repeat: positive troponin Blood Pressure : / mmHG Vent. Rate : 069 BPM Atrial Rate : 069 BPM P-R Int : 130 ms QRS Dur : 086 ms QT Int : 354 ms P-R-T Axes : 077 -21 044 degrees QTc Int : 379 ms Normal sinus rhythm Nonspecific ST and T wave abnormality Abnormal ECG When compared with ECG of 24-MAR-2022 06:58, QT has shortened Referred By: Kvng Jaramillo Electronically Signed By:JACOBY DURHAM
[2022-03-24 08:36] LABS: Influenza A PCR NEGATIVE (Negative); Influenza B PCR NEGATIVE (Negative); Resp Syncy Virus RNA Qual PCR NEGATIVE (Negative); SARS COV2 PCR INHOUSE NEGATIVE (Negative)
[2022-03-24] MEDS: Heparin Sodium,Porcine 5,000 UNIT/ML VIAL 4700 UNIT IVPUSH (09:30)
[2022-03-24] MEDS: clonazePAM 0.5 MG TABLET PO ×2 (09:30→13:14)
[2022-03-24 10:12] LABS: Hematocrit 41.2 % (37.0-47.0); Mean Corpuscular HGB Conc 31.6 g/dl (31.0-35.0); Mean Corpuscular Hemoglobin 25.8 pg (27.0-33.0); Mean Corpuscular Volume 81.9 fL (80.0-98.0); Mean Platelet Volume 9.4 fL (9.4-12.3); Platelet Count 324 X10*3/uL (160-400); Red Blood Count 5.03 X10*6/uL (4.20-5.50); White Blood Count 9.7 X10*3/uL (4.8-10.8)
[2022-03-24 10:21] LABS: INTERNATIONAL NORM RATIO 1.1 (0.9-1.1); Prothrombin Time 13.1 SEC (10.0-13.1)
[2022-03-24 10:21] LABS: INTERNATIONAL NORM RATIO 1.1 (0.9-1.1); Prothrombin Time 13.1 SEC (10.0-13.1)
[2022-03-24 10:24] LABS: PTT Heparin Drip 30.9 SEC (53-77.9)
--- NOTE | 2022-03-24 10:28 | PC.NURSE ---
heparin drip not initiated due to delay in lab work/results. aware
[2022-03-24] MEDS: Heparin Sodium,Porcine/1/2NS 25,000 UNIT/250 ML IV.SOLN 8.54 UNIT IVCONT (10:30)
[2022-03-24 10:34] LABS: Troponin-I High Sensitivity 534.1 ng/L (<3.5-17.0)
--- NOTE | 2022-03-24 10:40 | PHA.MEDREC ---
Pharmacy Consult ? Medication Reconciliation Pharmacy has completed the medication reconciliation.
--- NOTE | 2022-03-24 11:30 | PC.NURSE ---
DR. VILLARREAL AT BEDSIDE, PT/ AWARE OF PLAN OF CARE.
--- NOTE | 2022-03-24 11:37 | PC.NURSE ---
jarvis (allison) at bedside pt aware of plan of care.
--- NOTE | 2022-03-24 12:05 | PM.CNCAR ---
History of Present Illness History of Present Illness Date of Service: 03/24/22 Requesting physician: Kvng Jaramillo Consult reason: troponin elevation Chief complaint: COPD exacerbation Narrative: I was consulted to see Jessica in cardiology consultation today for elevated troponins. High sensitive troponin the 500 range. Patient present hospital with worsening shortness of breath over the last week. She has history of underlying severe COPD be manage at home and generally has done well with the last 2 years with no hospitalization. Has run out of her nebulizer treatment for 9 months. 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 Patient said about a week ago she started developing increasing shortness of breath along with wheezing and nonproductive cough. No fever or chills or other viral symptoms. She had no associated chest discomfort. She continued to get worse over the last few days and came to the emergency room. Noted to have COPD exacerbation. EKG showed nonspecific changes and therefore troponin was done which was elevated in the 500 range. Subsequent troponin is flat in 500 range. Review of Systems Constitutional: Constitutional: Reports no additional constitutional complaints Eyes: Eyes: Reports no additional eye complaints ENT: Reports system reviewed and no additional complaints, except as documented Cardiovascular: Cardiovascular: Reports no additional cardiovascular complaints and Reports dyspnea on exertion Respiratory: Respiratory: Reports cough, Reports dyspnea on exertion and Reports wheezing Gastrointestinal: Gastrointestinal: Reports no additional gastrointestinal complaints Genitourinary: Genitourinary: Reports no additional female genitourinary complaints Musculoskeletal: Musculoskeletal: Reports no additional musculoskeletal complaints Integumentary/Breasts: Skin/Breast: Reports system reviewed and no additional complaints, except as docu Neurologic: Reports system reviewed and no additional complaints, except as documented Psychiatric: Psychiatric: Reports no additional psychiatric complaints Endocrine: Endocrine: Reports no additional endocrine complaints Hematologic/Lymphatic: Hematologic/Lymphatic: Reports no additional hematologic/lymphatic complaints Allergic/Immunologic: Allergic/Immunologic: Reports no additional allergic/immunologic complaints and Reports wheezing PMFSH Past Medical History Medical History Anxiety Asthma with COPD (chronic obstructive pulmonary disease) Atelectasis of left lung Atelectasis of left lung Cavitary pneumonia Pneumothorax on left Family History Family History Other Family history non-contributory Social History Social History Household Members: Spouse and Children Housing: House Do you presently have visiting nurse or other home services: No Alcohol intake: never Patient Tobacco Use Status: Former Tobacco user Use of substances other than those prescribed or required for medical reasons: No Advance Directives: No service: No Current occupational status: unemployed Meds Allergies Allergy/AdvReac Type Severity Reaction Status Date / Time latex Allergy Unknown Verified 11/25/20 11:32 Active Medications: Current Medications Acetaminophen (Acetaminophen 325 Mg Tablet) 650 mg PO Q6H PRN PRN Reason: Pain, Mild (Pain Scale 1-3) Albuterol/Ipratropium (Albuterol/Iprat 2.5/0.5mg 3 Ml Ampul.Neb) 3 ml INHALE RQ4H WHILE AWAKE [facility] Aspirin (Aspirin Enteric Coated 81 Mg Tablet.) 81 mg PO DAILY [facility] Atorvastatin Calcium (Atorvastatin Calcium 40 Mg Tablet) 40 mg PO DAILY [facility] Clonidine HCl (Clonidine Hcl 0.1 Mg Tablet) 0.1 mg PO BEDTIME GURWINDER; Protocol Fluoxetine HCl (Fluoxetine Hcl 20 Mg Capsule) 40 mg PO DAILY [facility] Magnesium Hydroxide (Milk Of Magnesia 30 Ml Oral.Susp) 30 ml PO DAILY PRN PRN Reason: Constipation Melatonin (Melatonin 3 Mg Tablet) 6 mg PO BEDTIME PRN PRN Reason: Insomnia Methadone HCl (Methadone Hcl 20 Mg/2 Ml Oral.Conc) 120 mg PO DAILY [facility] Non-Formulary Medication (Aclidinium [place] [Tudorza Pressair]) 1 inhalation INHALE BID [facility] Non-Formulary Medication (Ciclesonide) 1 puff INHALE DAILY [facility] Omeprazole (Omeprazole 20 Mg Capsule.) 20 mg PO DAILY@0630 [facility] Ondansetron HCl (Ondansetron Hcl 4 Mg/2 Ml Vial) 4 mg IVPUSH Q8H PRN PRN Reason: Nausea and Vomiting Pharmacy Consult (Consult Rx Perform Med Rec) 1 each MISCELLANE ONCE PRN PRN Reason: Consult order Sodium Chloride (0.9 % Sodium Chloride Flush 3 Ml Syringe) 3 ml IVFLUSH QSHIFT [facility] Trazodone HCl (Trazodone Hcl 100 Mg Tablet) 200 mg PO BEDTIME [facility] Home Medications Medication Instructions Recorded Confirmed Last Taken Type aclidinium bromide 400 1 inh inhalation BID 03/24/22 03/24/22 03/23/22 History mcg/actuation breath activated powder inhaler (Tudorza Pressair) albuterol sulfate 90 mcg/actuation 2 puff inhalation Q4H PRN Wheezing 03/24/22 03/24/22 Unknown History aerosol inhaler (ProAir HFA) ciclesonide 160 mcg/actuation 1 puff inhalation DAILY 03/24/22 03/24/22 03/23/22 History aerosol inhaler clonidine HCl 0.1 mg tablet 1 tab PO BEDTIME 03/24/22 03/24/22 03/23/22 History fluoxetine 20 mg capsule 2 cap PO QAM 03/24/22 03/24/22 03/23/22 History methadone 10 mg/mL oral concentrate 120 mg PO DAILY 03/24/22 03/24/22 03/24/22 History pantoprazole 40 mg tablet,delayed 1 tab PO DAILY 03/24/22 03/24/22 03/23/22 History release trazodone 100 mg tablet 2 tab PO BEDTIME 03/24/22 03/24/22 03/23/22 History Physical Exam Vital Signs: Vital Signs: Last Vital Signs Temp 98.7 F 03/24/22 09:27 Pulse 86 03/24/22 11:27 Resp 18 03/24/22 11:27 BP 132/70 03/24/22 11:27 Pulse Ox 94 03/24/22 11:27 O2 Del Method 03/24/22 11:27 O2 Flow Rate 2 03/24/22 11:27 Oxygen Flow Rate 2 03/24/22 06:41 BMI result Body Mass Index 24.5 Const: General: cooperative, comfortable, alert, awake, in distress mild and respiratory and anxious Nutritional Appearance: thin Orientation/consciousness: patient oriented x3 Limitations: no limitations HEENT: Head: Yes normocephalic and Yes atraumatic Neck: Neck: Yes trachea midline, Yes supple and Yes no JVD Chest: Chest palpation & inspection: abnormal inspection of the chest kyphotic Resp: Effort & Inspection: normal respiratory effort Auscultation: wheezes expiratory wheezes (Throughout) and diminished lung sounds Cardio: Jugular venous distension: no JVD Palpation: normal PMI Rate: regular rate Rhythm: regular rhythm Heart sounds: S1 normal heart sound present, S2 normal heart sound present, no click, no gallops, no murmurs and no rubs GI: Auscultation: normal bowel sounds Skin: General skin exam: no rashes or lesions noted and ecchymosis Neuro: General: patient oriented x3 and no focal motor deficits Extrem: General: Yes no clubbing, cyanosis or edema Objective Labs and Meds Result diagrams: 03/24/22 09:59 03/24/22 07:08 Lab results: Laboratory Results - last 24 hr 03/24/22 03/24/22 03/24/22 07:08 07:08 07:08 WBC 11.8 H RBC 5.11 Hgb 13.3 Hct 41.8 MCV 81.8 MCH 26.0 L MCHC 31.8 RDW 13.2 Plt Count 346 MPV 9.8 Immature Gran % (Auto) 0.3 Neut % (Auto) 80.5 H Lymph % (Auto) 11.7 L [place] % (Auto) 6.6 Eos % (Auto) 0.3 Baso % (Auto) 0.6 Lymph # (Auto) 1.4 [place] # (Auto) 0.8 Eos # (Auto) 0.0 Baso # (Auto) 0.1 Abs Immat Gran (auto) 0.04 H Absolute Neuts (auto) 9.5 H Absolute Nucleated RBC 0.000 Nucleated RBC % (auto) 0.0 PT INR aPTT Heparin Protocol Sodium 141 Potassium 4.4 Chloride 100 Carbon Dioxide 27 Anion Gap 18 BUN 13 Creatinine 0.78 Estim Creat Clear Calc 61.4 Estimated GFR > 60 Random Glucose 98 Calcium 9.3 Troponin I High Sens 547.0 H* Influenza Type A (PCR) Influenza Type B (PCR) RSV RNA Qual (PCR) SARS-CoV-2 RNA (RT-PCR) 03/24/22 03/24/22 03/24/22 07:10 09:59 09:59 WBC 9.7 RBC 5.03 Hgb 13.0 Hct 41.2 MCV 81.9 MCH 25.8 L MCHC 31.6 RDW 13.0 Plt Count 324 MPV 9.4 Immature Gran % (Auto) Neut % (Auto) Lymph % (Auto) [place] % (Auto) Eos % (Auto) Baso % (Auto) Lymph # (Auto) [place] # (Auto) Eos # (Auto) Baso # (Auto) Abs Immat Gran (auto) Absolute Neuts (auto) Absolute Nucleated RBC 0.000 Nucleated RBC % (auto) 0.0 PT 13.1 INR 1.1 aPTT Heparin Protocol 30.9 L Sodium Potassium Chloride Carbon Dioxide Anion Gap BUN Creatinine Estim Creat Clear Calc Estimated GFR Random Glucose Calcium Troponin I High Sens Influenza Type A (PCR) NEGATIVE Influenza Type B (PCR) NEGATIVE RSV RNA Qual (PCR) NEGATIVE SARS-CoV-2 RNA (RT-PCR) NEGATIVE 03/24/22 03/24/22 09:59 10:00 WBC RBC Hgb Hct MCV MCH MCHC RDW Plt Count MPV Immature Gran % (Auto) Neut % (Auto) Lymph % (Auto) [place] % (Auto) Eos % (Auto) Baso % (Auto) Lymph # (Auto) [place] # (Auto) Eos # (Auto) Baso # (Auto) Abs Immat Gran (auto) Absolute Neuts (auto) Absolute Nucleated RBC Nucleated RBC % (auto) PT 13.1 INR 1.1 aPTT Heparin Protocol Sodium Potassium Chloride Carbon Dioxide Anion Gap BUN Creatinine Estim Creat Clear Calc Estimated GFR Random Glucose Calcium Troponin I High Sens 534.1 H* Influenza Type A (PCR) Influenza Type B (PCR) RSV RNA Qual (PCR) SARS-CoV-2 RNA (RT-PCR) Imaging Radiologist's impression: Impressions Chest X-Ray 03/24/22 08:03 IMPRESSION: Increasing minor atelectatic changes at the lung bases. Assessment and Plan (1) Elevated troponin: Status: Acute Troponin elevation but flat not suggestive of acute coronary syndrome or NSTEMI. This is most suggestive of strain either RV strain or could be LV strain from hypoxemia. Most likely related to underlying severe COPD. However also could have underlying obstructive coronary disease which is stable but causing myocardial ischemia with COPD exacerbation. Will require ischemic workup but once her pulmonary status is stable as outpatient couple weeks. Echocardiogram to be done to evaluate LV systolic and diastolic function RV size and systolic function. Continue manage COPD exacerbation aggressively. Consider pulmonary consultation. Low-dose aspirin statin therapy. No need for IV heparin. At this point time will sign of the case. Thank you for allowing me to partake in her care Procedures Date of Service Date of Service: 03/24/22
[2022-03-24 12:29] LABS: Cholesterol 204 mg/dL; HDL Cholesterol 67 mg/dL; LDL Cholesterol Calculated 119 mg/dl; Triglycerides 93 mg/dL
--- NOTE | 2022-03-24 13:00 | CA_ITS ---
Transthoracic Echocardiogram Patient (Last, First, Middle): Jessica Pollard, Gender: Female Date of : 1960 Age: 61 Procedure Date: 03/24/2022 Procedure Type: Transthoracic Echocardiogram Location: ER Height: 157.48 cm Weight: 60.78 kg BSA: 1.61 m2 Heart Rate: bpm BP: 118 / 66 mmHg Physical Chemistry Teacher: TORO Referring MD: Yasmine HUBER After School Program Coordinator: Wally Emmanuel MD Symptoms: elevated trop Study Quality: Fair ECG Rhythm: Sinus Conclusions: - 1. Normal LV systolic function with impaired relaxation filling pattern 2. Normal cardiac valvular Doppler 3. Normal RV systolic pressure 4. No pericardial effusion Findings Procedure Information Contrast agent, definity, is being given per protocol without apparent complications. Left Ventricle Normal left ventricular size, thickness, and systolic function. The visually estimated ejection fraction is between 60-65%. Spectral Doppler is indicative of an impaired relaxation filling pattern. E/E prime ratio is <8, consistent with normal filling pressures. Right Ventricle Normal right ventricular cavity size and systolic function. Atria Both atria are normal in size. Interatrial shunt cannot be excluded. Aortic Valve There is mild calcification of the aortic valve. There is no aortic valve stenosis. There is no aortic valve regurgitation. Mitral Valve There is mild anterior mitral leaflet thickening. There is trace mitral valve regurgitation. There is no mitral valve stenosis. Pulmonic Valve The pulmonic valve was not well visualized. Tricuspid Valve Likely normal tricuspid valve structure and function. There is mild tricuspid valve regurgitation. The right ventricular systolic pressure is normal. The right ventricular systolic pressure is 19 mmHg. Normal right atrial pressure. There is no evidence of pulmonary hypertension. Great Vessels All visible segments of the aorta are normal in size. The pulmonary artery was not well visualized. Moderate plaque is seen in the sino tubular ridge. Venous The inferior vena cava is normal in size and collapses greater than 50% with inspiration. Pericardium/Pleural There is no evidence of pericardial effusion. Prior Study Comparison Significant changes compared to prior study dated: 07/08/2020. no significant mitral regurgitation is noted. Measurements 2D Linear Measurements IVSd: 0.67 0.6-0.9/0.6-1.0 cm LVIDd: 4.65 3.9-5.3/4.2-5.9 cm LVIDd Index: 2.89 2.4-3.2/2.2-3.1 cm/m2 LVIDs: 3.33 2.0-3.6 cm LVPWd: 0.65 0.7-1.1 cm LA Diam: 3.20 2.7-3.8/3.0-4.0 cm LAIDs Index: 1.99 1.5-2.3 cm/m2 LV Mass: 116.39 67-162/88-224 g LV Mass Index: 72.29 43-95/49-115 g/m2 LVOT Diam: 2.00 3.0+(-)1.3 cm 2D Systolic Function EF 4C: 68.50 >55% EF 2C: 65.00 >55% EF BiP: 66.80 >55% Mitral Valve MV Pk E: 0.59 MV PK A: 0.73 MV Decel Time: 204.00 E/A: 0.80 E'Lateral: 8.92 E'Medial: 5.66 E/E' Med: 10.40 E/E' Lat: 6.60 PHT: 60.00 MVA PHT: 3.67 Decel Allen: 2.90 Aortic Valve AoV Pk Luis: 1.68 AoV Mn Luis: 1.09 AoV VTI: 0.28 AoV Pk Grad: 11.00 Aov Mn Grad: 5.00 SUNNY Cont.VTI: 3.20 LVOT LVOT Pk Luis: 1.80 LVOT Mn Luis: 1.02 LVOT VTI: 0.29 LVOT Pk Grad: 13.00 LVOT Mn Grad: 5.00 LVOT Diam: 2.00 LVOT Area: 3.14 Diastolic Function MV Pk E: 0.59 MV Pk A: 0.73 E/A: 0.80 E'Medial: 5.66 E/E' Med: 10.40 E' Laterial: 8.92 E/E' Lat: 6.60 Right Ventricle TAPSE (mm): 24.00 TVS' Luis: 17.00 Tricuspid Valve TR Pk Luis: 2.00 TR Pk Grad: 16.00 RA Press: 3.00 RVSP: 19.00 Great Vessels Aorta Sinus of Valsalva: 2.90 2.0-3.5 cm Ao Asc: 3.60 2.1-3.4 cm Updated in Other Vendor System with Status of Final Wally Emmanuel MD electronically signed on 03/24/2022 4:05:01 PM with status of Final
[2022-03-24] MEDS: Omeprazole 20 MG CAPSULE.DR PO (13:13)
[2022-03-24] MEDS: FLUoxetine HCl 20 MG CAPSULE 40 MG PO (13:14)
[2022-03-24] MEDS: Atorvastatin Calcium 40 MG TABLET PO (13:14)
--- NOTE | 2022-03-24 14:35 | P.HPHOSP_ITS ---
History of Present Illness Date of Service: 03/24/22 Attending physician on admission: [facility] Chief Complaint: COPD exacerbation, elevated troponin 61 year old patient with history of asthma/copd, anxiety, cataract, history of opiate depedence on methadone, and osteoarhritis presented to the ED this morning for evaluation of sob, maria, productive cough ongoing for several weeks a nd worsening over the last few days. This morning she states she also had epigastric discomfort with reflex. This morning developed retrosternal chest pain describes as non-radiating pressure/tightness rated 8/10. There has also been some weakness in the lower extremities over the past week. Initially had mild leukocytosis of 11.8, improved to 9.7. Initial troponin elevated at 547.0 with EKG #[address] elevation in inferior leds and nonspeific t-wave abnormalities in anterior leads. Repeat troponin flat at 534 with EKG #[address]-T wave abnormality. Patient started on heparin drip per protocol with concern for cardiac ischemia and given 324mg aspirin and nitroglycein ointment. Also placed on 2L O2 via NC and given IV solumedrol for COPD exacerbation. Last COPD exacerbation was 2 years ago requiring intubation. Has also received 2 duonebs. Vital signs normal. CXR in ed with bibasilar atelectasis. She has a 37 pack year hx and quit about 4 years ago, though admits to smoking about 1 cigarette per week [facility]. Patient is comfortable at this time though complaining of anxiety. Review of Systems Review of Systems: General: No fevers, malaise, unintentional weight loss Cardiovascular: +chest pain. No palpitations, or leg edema Respiratory: +sob, +maria, +productive cough. No shortness of breath, wheezing, cough GI: epigastric pain, +nausea. No vomiting, diarrhea, constipation, melena, hematochezia Neuro: No headaches, weakness, paresthesias Psych: +anxiety Skin: No rashes or lesions [facility] Medical History (Updated 03/25/22 @ 10:30 by Jonn Lenz MD) Anxiety Asthma with COPD (chronic obstructive pulmonary disease) Atelectasis of left lung Atelectasis of left lung Cavitary pneumonia COPD exacerbation Pneumothorax on left Family History Other Family history non-contributory Pertinent family history: patient is adopted Social History Household Members: Spouse Housing: House Do you presently have visiting nurse or other home services: No Alcohol intake: never Patient Tobacco Use Status: Former Tobacco user service: No Current occupational status: unemployed Meds Allergies Allergy/AdvReac Type Severity Reaction Status Date / Time latex Allergy Unknown Verified 11/25/20 11:32 Active Medications: Current Medications Acetaminophen (Acetaminophen 325 Mg Tablet) 650 mg PO Q6H PRN PRN Reason: Pain, Mild (Pain Scale 1-3) Albuterol/Ipratropium (Albuterol/Iprat 2.5/0.5mg 3 Ml Ampul.Neb) 3 ml INHALE RQ4H WHILE AWAKE [facility] Last Admin: 03/24/22 12:47 Dose: 3 ml Aspirin (Aspirin Enteric Coated 81 Mg Tablet.) 81 mg PO DAILY [facility] Last Admin: 03/24/22 13:15 Dose: Not Given Atorvastatin Calcium (Atorvastatin Calcium 40 Mg Tablet) 40 mg PO DAILY [facility] Last Admin: 03/24/22 13:14 Dose: 40 mg Cefuroxime Axetil (Cefuroxime Axetil 500 Mg Tablet) 500 mg PO Q12H [facility] Last Admin: 03/24/22 13:14 Dose: 500 mg Clonidine HCl (Clonidine Hcl 0.1 Mg Tablet) 0.1 mg PO BEDTIME [facility]; Protocol Fluoxetine HCl (Fluoxetine Hcl 20 Mg Capsule) 40 mg PO DAILY [facility] Last Admin: 03/24/22 13:14 Dose: 40 mg Magnesium Hydroxide (Milk Of Magnesia 30 Ml Oral.Susp) 30 ml PO DAILY PRN PRN Reason: Constipation Melatonin (Melatonin 3 Mg Tablet) 6 mg PO BEDTIME PRN PRN Reason: Insomnia Methadone HCl (Methadone Hcl 20 Mg/2 Ml Oral.Conc) 120 mg PO DAILY [facility] Non-Formulary Medication (Aclidinium Ward [Tudorza Pressair]) 1 inhalation INHALE BID [facility] Non-Formulary Medication (Ciclesonide) 1 puff INHALE DAILY [facility] Omeprazole (Omeprazole 20 Mg Capsule.) 20 mg PO DAILY@0630 [facility] Last Admin: 03/24/22 13:13 Dose: 20 mg Ondansetron HCl (Ondansetron Hcl 4 Mg/2 Ml Vial) 4 mg IVPUSH Q8H PRN PRN Reason: Nausea and Vomiting Pharmacy Consult (Consult Rx Perform Med Rec) 1 each MISCELLANE ONCE PRN PRN Reason: Consult order Prednisone (Prednisone 20 Mg Tablet) 40 mg PO DAILY [facility] Last Admin: 03/24/22 13:15 Dose: Not Given Sodium Chloride (0.9 % Sodium Chloride Flush 3 Ml Syringe) 3 ml IVFLUSH QSHIFT [facility] Trazodone HCl (Trazodone Hcl 100 Mg Tablet) 200 mg PO BEDTIME [facility] Home Medications Medication Instructions Recorded Confirmed Last Taken Type aclidinium bromide 400 1 inh inhalation BID 03/24/22 03/24/22 03/23/22 History mcg/actuation breath activated powder inhaler (Tudorza Pressair) albuterol sulfate 90 mcg/actuation 2 puff inhalation Q4H PRN Wheezing 03/24/22 03/24/22 Unknown History aerosol inhaler (ProAir HFA) ciclesonide 160 mcg/actuation 1 puff inhalation DAILY 03/24/22 03/24/22 03/23/22 History aerosol inhaler clonidine HCl 0.1 mg tablet 1 tab PO BEDTIME 03/24/22 03/24/22 03/23/22 History fluoxetine 20 mg capsule 2 cap PO QAM 03/24/22 03/24/22 03/23/22 History methadone 10 mg/mL oral concentrate 120 mg PO DAILY 03/24/22 03/24/22 03/24/22 History pantoprazole 40 mg tablet,delayed 1 tab PO DAILY 03/24/22 03/24/22 03/23/22 History release trazodone 100 mg tablet 2 tab PO BEDTIME 03/24/22 03/24/22 03/23/22 History Physical Exam Vital Signs and Narrative: Vital Signs: Last Vital Signs Temp 98.3 F 03/24/22 13:16 Pulse 68 03/24/22 13:16 Resp 12 03/24/22 13:16 BP 121/58 L 03/24/22 13:16 Pulse Ox 93 03/24/22 13:16 O2 Del Method 03/24/22 13:16 O2 Flow Rate 1 03/24/22 13:16 Oxygen Flow Rate 2 03/24/22 06:41 BMI result Body Mass Index 24.5 Results Labs CBC and Chem 7: 03/25/22 04:24 03/24/22 07:08 Labs: Laboratory Results - last 24 hr 03/24/22 03/24/22 03/24/22 07:08 07:08 07:10 MCV 81.8 MCH 26.0 L MCHC 31.8 RDW 13.2 Plt Count 346 MPV 9.8 Immature Gran % (Auto) 0.3 Neut % (Auto) 80.5 H Lymph % (Auto) 11.7 L Turner % (Auto) 6.6 Eos % (Auto) 0.3 Baso % (Auto) 0.6 Lymph # (Auto) 1.4 Turner # (Auto) 0.8 Eos # (Auto) 0.0 Baso # (Auto) 0.1 Abs Immat Gran (auto) 0.04 H Absolute Neuts (auto) 9.5 H Absolute Nucleated RBC 0.000 Nucleated RBC % (auto) 0.0 PT INR aPTT Heparin Protocol Anion Gap 18 Estim Creat Clear Calc 61.4 Estimated GFR > 60 Random Glucose 98 Calcium 9.3 Triglycerides 93 Cholesterol 204 LDL Cholesterol, Calc 119 HDL Cholesterol 67 Influenza Type A (PCR) NEGATIVE Influenza Type B (PCR) NEGATIVE RSV RNA Qual (PCR) NEGATIVE SARS-CoV-2 RNA (RT-PCR) NEGATIVE 03/24/22 03/24/22 03/24/22 09:59 09:59 10:00 MCV 81.9 MCH 25.8 L MCHC 31.6 RDW 13.0 Plt Count 324 MPV 9.4 Immature Gran % (Auto) Neut % (Auto) Lymph % (Auto) Turner % (Auto) Eos % (Auto) Baso % (Auto) Lymph # (Auto) Turner # (Auto) Eos # (Auto) Baso # (Auto) Abs Immat Gran (auto) Absolute Neuts (auto) Absolute Nucleated RBC 0.000 Nucleated RBC % (auto) 0.0 PT 13.1 13.1 INR 1.1 1.1 aPTT Heparin Protocol 30.9 L Anion Gap Estim Creat Clear Calc Estimated GFR Random Glucose Calcium Triglycerides Cholesterol LDL Cholesterol, Calc HDL Cholesterol Influenza Type A (PCR) Influenza Type B (PCR) RSV RNA Qual (PCR) SARS-CoV-2 RNA (RT-PCR) Imaging Radiologist's Impressions: Impressions Chest X-Ray 03/24/22 08:03 IMPRESSION: Increasing minor atelectatic changes at the lung bases. Assessment and Plan (1) COPD exacerbation: Status: Acute (2) Elevated troponin: Status: Acute Plan 61 year old patient with history of asthma/copd, anxiety, cataract, history of opiate depedence on methadone, with 37 pack year history currently smokes about 1 cig per week, and osteoarhritis admitted for COPD exacerbation with elevated troponin. 1- COPD exacerbation- possible bibasilar pneumonia on cxr, afebrile -Received IV solumedrol in ED and 2 duonebs. No hypoxia -Initiate po steroids tomorrow am -Duonebs prn -Continue maintenance inhalers -PO ceftin 500mg BID due to bibasilar atelectasis on CXR to cover for possible pneumonia -Pulm consult placed per cardiology recommendation 2-Possible pneumonia -bibasilar atelectasis on CXR with productive cough and sob. Afebrile and non- hypoxic -Initiate ceftin BID -Repeat CXR per radiology recommendation 3-Elevated troponin -Initial 549, repeat flat at 534 -EKG with nonspecific changes -Seen by cardiology who does not feel trop elevation related to ACS or NSTEMI, but more suggestive of either RV strain or LV strain from hypoxemia, likely secondary to untreated COPD exacerbation. Per cardiology, could also have underlying obstructive coronary disease which is stable but causing myocardial ischemia in the setting of COPD exacerbation. -DC IV heparin per cardiology. Continue daily baby aspirin -Echocardiogram ordered to assess LV, systolic, and diastolic fx, RV size. -Recommending aggressive COPD exacerbation management with pulm consult. 4-Opioid dependence- stable -continue methadone 5-Anxiety- uncontrolled current health issues -One time dose clonazepam -Continue fluoxetine, clonidine, trazodone 6- GERD -Continue ppi DVT prophylaxis- received heparin drip and aspirin today. Initiate lovenox tomorrow Full code Patient requries inpatient stay of at least 2 midnights for management of acute COPD exacerbation causing possible RV strain and LV strain with elevated troponins. Quality Stroke Does the patient have a stroke diagnosis?: No VTE Prior VTE?: No VTE Risk Level:: Medical - moderate - high VTE Device Contraindication: Treatment Not Indicated VTE Drug Contraindication: N/A - Med Ordered
[2022-03-24 14:45] LABS: PTT Heparin Drip 37.9 SEC (53-77.9)
[2022-03-24] MEDS: 0.9 % Sodium Chloride Flush 3 ML SYRINGE IVFLUSH (15:33)
--- NOTE | 2022-03-24 21:44 | PC.NURSE ---
Dr. Morales notified of patients BP of 99/62. Instructed to hold clonidine and give scheduled trazadone.
[2022-03-24] MEDS: traZODone HCL 100 MG TABLET 200 MG PO (21:45)
--- NOTE | 2022-03-24 21:56 | MHC.CM.PN ---
CM attempted to meet with admitted patient with bed assignment pending, however pt was sleeping. Will attempt to meet when pt wakes to discuss d/c planning.
--- NOTE | 2022-03-24 23:50 | PC.NURSE ---
Patient was assisted to the bathroom by this pct ,patient voided large amount of urine in toilet ,patient ask for apple juice and warm blanket .
[2022-03-25] VITALS (16 sets, daily range): BP systolic 80–140; BP diastolic 43–61; PULSE 58–84; RESP 12–20; TEMP 36.5–37.2; O2SAT 91–98; BMI 24.5
--- NOTE | 2022-03-25 00:19 | PC.NURSE ---
Dr Ferguson notified for manual BP 80/60. Patient mentating at baseline, denies pain or worsening dyspnea. Plan for 500cc bolus, CTA PE protocol.
[2022-03-25] MEDS: 0.9 % Sodium Chloride 500 ML IV (00:23)
--- NOTE | 2022-03-25 01:31 | PC.NURSE ---
Patient returned from CT, and nitro paste noted to left chest wall when applying new tele leads. Nitro paste removed as patient remains hypotensive and fluids are complete.
[2022-03-25] MEDS: iohexoL 350 MG/ML 100 ML INFUS..BTL IV (01:33)
--- NOTE | 2022-03-25 01:33 | PC.NURSE ---
Dr Ferguson aware that Nitro paste has been removed.
--- NOTE | 2022-03-25 03:12 | PC.NURSE ---
Patient best BP 80/45 upon waking. Orientating at baseline. Denies SOB or CP at this time. Notified Dr Ferguson. Plan for 500cc bolus NS.
[2022-03-25 04:29] LABS: Hematocrit 34.3 % (37.0-47.0); Hemoglobin 10.9 g/dl (12.0-16.0); Mean Corpuscular HGB Conc 31.8 g/dl (31.0-35.0); Mean Corpuscular Hemoglobin 26.8 pg (27.0-33.0); Mean Corpuscular Volume 84.5 fL (80.0-98.0); Mean Platelet Volume 9.5 fL (9.4-12.3); Platelet Count 246 X10*3/uL (160-400); Red Blood Count 4.06 X10*6/uL (4.20-5.50); Red Cell Distribution Width 13.5 % (11.0-16.0); White Blood Count 11.6 X10*3/uL (4.8-10.8)
--- NOTE | 2022-03-25 04:35 | PC.NURSE ---
Tamar applied for patient. Patient reports she gets short of breath while walking.
[2022-03-25 04:37] LABS: INTERNATIONAL NORM RATIO 1.2 (0.9-1.1); Prothrombin Time 13.8 SEC (10.0-13.1)
--- NOTE | 2022-03-25 05:07 | PC.NURSE ---
Called to give report. Nurse is in a patient room and will call back.
--- NOTE | 2022-03-25 05:39 | PC.NURSE ---
nurse to nurse given to [facility] RN
[2022-03-25] MEDS: Omeprazole 20 MG CAPSULE.DR PO (06:57)
[2022-03-25] MEDS: Albuterol/Iprat 2.5/0.5MG 3 ML AMPUL.NEB INHALE ×3 (07:31→15:41)
[2022-03-25] MEDS: predniSONE 20 MG TABLET 40 MG PO (08:03)
[2022-03-25] MEDS: 0.9 % Sodium Chloride Flush 3 ML SYRINGE IVFLUSH ×3 (08:03→20:10)
[2022-03-25] MEDS: Atorvastatin Calcium 40 MG TABLET PO (08:04)
[2022-03-25] MEDS: methADONE HCl 20 MG/2 ML ORAL.CONC 120 MG PO (08:04)
[2022-03-25] MEDS: FLUoxetine HCl 20 MG CAPSULE 40 MG PO (08:04)
[2022-03-25] MEDS: Aspirin Enteric Coated 81 MG TABLET.DR PO (08:04)
--- NOTE | 2022-03-25 09:57 | MHC.CM.PN ---
Addendum entered by Karissa Macias 03/25/22 15:53: NEW HCP COMPLETED & IN CHART HCP: CHUCK GORE [phone] Original Note: CM MET WITH PT AND WHO WAS AT BEDSIDE PT LIVES AT HOME AND IS INDEPENDENT AT BASELINE PT DENIES USE OF DME OR HOME SERVICES PT CONFIRMS HER PCP IS MICHAEL BRUNER SHE SAYS SHE IS COVID-19 VACCINATED AND BOOSTED X 1 PT REPORTS SHE NEEDS A NEW HCP COMPLETED SINCE HER DAUGHTER MOVED AWAY SHE WOULD LIKE HER HER SOLE AGENT CURRENT DC PLAN IS HOME WITH NO SERVICES TO TRANSPORT
--- NOTE | 2022-03-25 10:24 | PM.CNPUL ---
History of Present Illness History of Present Illness Consult date: 03/25/22 Chief complaint: COPD exacerbation Narrative: This is an inpatient pulmonary consultation. The patient is a 61 year old patient with history of asthma/copd, h/o hydropneumothorax, history of opiate depedence on methadone, presented to the ED this morning for evaluation of sob, maria, productive cough ongoing for several weeks and worsening over the last few days. This morning she states she also had epigastric discomfort with reflex. This morning developed retrosternal chest pain describes as non-radiating pressure/tightness rated 8/10. There has also been some weakness in the lower extremities over the past week. Initially had mild leukocytosis of 11.8, improved to 9.7. Initial troponin elevated at 547.0 with EKG #[address] elevation in inferior leds and nonspeific t-wave abnormalities in anterior leads. Repeat troponin flat at 534 with EKG #[address]-T wave abnormality. Patient started on heparin drip per protocol with concern for cardiac ischemia and given 324mg aspirin and nitroglycein ointment. Also placed on 2L O2 via NC and given IV solumedrol for COPD exacerbation. Last COPD exacerbation was 2 years ago requiring intubation. Has also received 2 duonebs. Vital signs normal. CXR in ed with bibasilar atelectasis. She was admitted to the hospital with a COPD exacerbation. Underwent a CTA personally reviewed by me with -PE and evidence of emphysema and chronic bronchitis. Review of Systems Constitutional: Constitutional: Reports no additional constitutional complaints Eyes: Eyes: Reports no additional eye complaints ENT: Reports system reviewed and no additional complaints, except as documented Cardiovascular: Cardiovascular: Reports no additional cardiovascular complaints and Reports dyspnea on exertion Respiratory: Respiratory: Reports cough, Reports dyspnea on exertion and Reports wheezing Gastrointestinal: Gastrointestinal: Reports no additional gastrointestinal complaints Genitourinary: Genitourinary: Reports no additional female genitourinary complaints Musculoskeletal: Musculoskeletal: Reports no additional musculoskeletal complaints Integumentary/Breasts: Skin/Breast: Reports system reviewed and no additional complaints, except as docu Neurologic: Reports system reviewed and no additional complaints, except as documented Psychiatric: Psychiatric: Reports no additional psychiatric complaints Endocrine: Endocrine: Reports no additional endocrine complaints Hematologic/Lymphatic: Hematologic/Lymphatic: Reports no additional hematologic/lymphatic complaints Allergic/Immunologic: Allergic/Immunologic: Reports no additional allergic/immunologic complaints and Reports wheezing [facility] Past Medical History Medical History (Updated 03/25/22 @ 10:30 by Jonn Lenz MD) Anxiety Asthma with COPD (chronic obstructive pulmonary disease) Atelectasis of left lung Atelectasis of left lung Cavitary pneumonia COPD exacerbation Pneumothorax on left Family History Family History Other Family history non-contributory Social History Social History Household Members: Spouse Housing: House Do you presently have visiting nurse or other home services: No Alcohol intake: never Patient Tobacco Use Status: Former Tobacco user service: No Current occupational status: unemployed Meds Allergies Allergy/AdvReac Type Severity Reaction Status Date / Time latex Allergy Unknown Verified 11/25/20 11:32 Active Medications: Current Medications Acetaminophen (Acetaminophen 325 Mg Tablet) 650 mg PO Q6H PRN PRN Reason: Pain, Mild (Pain Scale 1-3) Albuterol/Ipratropium (Albuterol/Iprat 2.5/0.5mg 3 Ml Ampul.Neb) 3 ml INHALE RQ4H WHILE AWAKE [facility] Last Admin: 03/25/22 07:31 Dose: 3 ml Aspirin (Aspirin Enteric Coated 81 Mg Tablet.Dr) 81 mg PO DAILY [facility] Last Admin: 03/25/22 08:04 Dose: 81 mg Atorvastatin Calcium (Atorvastatin Calcium 40 Mg Tablet) 40 mg PO DAILY [facility] Last Admin: 03/25/22 08:04 Dose: 40 mg Cefuroxime Axetil (Cefuroxime Axetil 500 Mg Tablet) 500 mg PO Q12H [facility] Last Admin: 03/25/22 00:27 Dose: 500 mg Clonidine HCl (Clonidine Hcl 0.1 Mg Tablet) 0.1 mg PO BEDTIME [facility]; Protocol Last Admin: 03/24/22 21:41 Dose: Not Given Fluoxetine HCl (Fluoxetine Hcl 20 Mg Capsule) 40 mg PO DAILY [facility] Last Admin: 03/25/22 08:04 Dose: 40 mg Fluticasone/Vilanterol (Fluticasone/Vilanterol 200/25 Blst.W.Dev) 1 puff INHALE RDAILY [facility] Magnesium Hydroxide (Milk Of Magnesia 30 Ml Oral.Susp) 30 ml PO DAILY PRN PRN Reason: Constipation Melatonin (Melatonin 3 Mg Tablet) 6 mg PO BEDTIME PRN PRN Reason: Insomnia Methadone HCl (Methadone Hcl 20 Mg/2 Ml Oral.Conc) 120 mg PO DAILY [facility] Last Admin: 03/25/22 08:04 Dose: 120 mg Non-Formulary Medication (Aclidinium [place] [Tudorza Pressair]) 1 inhalation INHALE BID [facility] Non-Formulary Medication (Ciclesonide) 1 puff INHALE DAILY [facility] Omeprazole (Omeprazole 20 Mg Capsule.Dr) 20 mg PO DAILY@0630 [facility] Last Admin: 03/25/22 06:57 Dose: 20 mg Ondansetron HCl (Ondansetron Hcl 4 Mg/2 Ml Vial) 4 mg IVPUSH Q8H PRN PRN Reason: Nausea and Vomiting Pharmacy Consult (Consult Rx Perform Med Rec) 1 each MISCELLANE ONCE PRN PRN Reason: Consult order Prednisone (Prednisone 20 Mg Tablet) 40 mg PO DAILY [facility] Last Admin: 03/25/22 08:03 Dose: 40 mg Sodium Chloride (0.9 % Sodium Chloride Flush 3 Ml Syringe) 3 ml IVFLUSH QSHIFT [facility] Last Admin: 03/25/22 08:03 Dose: 3 ml Tiotropium [place] (Tiotropium [place] 18 Mcg Cap.W.Dev) 1 puff INHALE RDAILY [facility] Trazodone HCl (Trazodone Hcl 100 Mg Tablet) 200 mg PO BEDTIME [facility] Last Admin: 03/24/22 21:45 Dose: 200 mg Home Medications Medication Instructions Recorded Confirmed Last Taken Type aclidinium bromide 400 1 inh inhalation BID 03/24/22 03/24/22 03/23/22 History mcg/actuation breath activated powder inhaler (Tudorza Pressair) albuterol sulfate 90 mcg/actuation 2 puff inhalation Q4H PRN Wheezing 03/24/22 03/24/22 Unknown History aerosol inhaler (ProAir HFA) ciclesonide 160 mcg/actuation 1 puff inhalation DAILY 03/24/22 03/24/22 03/23/22 History aerosol inhaler clonidine HCl 0.1 mg tablet 1 tab PO BEDTIME 03/24/22 03/24/22 03/23/22 History fluoxetine 20 mg capsule 2 cap PO QAM 03/24/22 03/24/22 03/23/22 History methadone 10 mg/mL oral concentrate 120 mg PO DAILY 03/24/22 03/24/22 03/24/22 History pantoprazole 40 mg tablet,delayed 1 tab PO DAILY 03/24/22 03/24/22 03/23/22 History release trazodone 100 mg tablet 2 tab PO BEDTIME 03/24/22 03/24/22 03/23/22 History Physical Exam Vital Signs: Vital Signs: Last Vital Signs Temp 98.9 F 03/25/22 07:24 Pulse 58 03/25/22 07:32 Resp 18 03/25/22 07:32 BP 106/53 L 03/25/22 07:24 Pulse Ox 92 03/25/22 07:24 O2 Del Method 03/25/22 07:24 O2 Flow Rate 1 03/25/22 05:08 Oxygen Flow Rate 1 03/25/22 03:14 BMI result Body Mass Index 24.5 Const: General: cooperative, comfortable, alert, awake, in distress mild and respiratory and anxious Nutritional Appearance: thin Orientation/consciousness: patient oriented x3 Limitations: no limitations HEENT: Head: Yes normocephalic and Yes atraumatic Neck: Neck: Yes trachea midline, Yes supple and Yes no JVD Chest: Chest palpation & inspection: abnormal inspection of the chest kyphotic Resp: Effort & Inspection: normal respiratory effort Auscultation: wheezes expiratory wheezes (Throughout) and diminished lung sounds Cardio: Jugular venous distension: no JVD Palpation: normal PMI Rate: regular rate Rhythm: regular rhythm Heart sounds: S1 normal heart sound present, S2 normal heart sound present, no click, no gallops, no murmurs and no rubs GI: Auscultation: normal bowel sounds Skin: General skin exam: no rashes or lesions noted and ecchymosis Neuro: General: patient oriented x3 and no focal motor deficits Extrem: General: Yes no clubbing, cyanosis or edema Results Laboratory Findings CBC and BMP: 03/25/22 04:24 03/24/22 07:08 ABG, PT/INR, D-dimer: PT/INR, D-dimer PT 13.8 SEC (10.0-13.1) H 03/25/22 04:24 INR 1.2 (0.9-1.1) H 03/25/22 04:24 Abnormal lab findings: Abnormal Labs 03/24/22 03/24/22 03/24/22 07:08 07:08 09:59 WBC 11.8 H RBC Hgb Hct MCH 26.0 L Neut % (Auto) 80.5 H Lymph % (Auto) 11.7 L Abs Immat Gran (auto) 0.04 H Absolute Neuts (auto) 9.5 H PT INR aPTT Heparin Protocol 30.9 L Troponin I High Sens 547.0 H* 03/24/22 03/24/22 03/24/22 09:59 09:59 14:23 WBC RBC Hgb Hct MCH 25.8 L Neut % (Auto) Lymph % (Auto) Abs Immat Gran (auto) Absolute Neuts (auto) PT INR aPTT Heparin Protocol 37.9 L D Troponin I High Sens 534.1 H* 03/25/22 03/25/22 04:24 04:24 WBC 11.6 H RBC 4.06 L Hgb 10.9 L Hct 34.3 L MCH 26.8 L Neut % (Auto) Lymph % (Auto) Abs Immat Gran (auto) Absolute Neuts (auto) PT 13.8 H INR 1.2 H aPTT Heparin Protocol Troponin I High Sens Assessment and Plan (1) COPD exacerbation: Status: Acute (2) Atelectasis of left lung: Status: Acute Plan Continue Prednisone Continue Nebs Start Breo and spiriva daily will need walking oximetry prior to d/c to assess oxygen needs Will arrange f/u as an outpt with pulmonary Procedures Date of Service Date of Service: 03/25/22
--- NOTE | 2022-03-25 13:47 | P.PNIM_ITS ---
Subjective Subjective Date of Service: 03/25/22 Interval History: f/u on copd ex interval history: feels better, sob with exertion Review of Systems sob, no fever Physical Exam Vital Signs: Vital Signs: Last Vital Signs Temp 97.7 F 03/25/22 11:34 Pulse 69 03/25/22 11:34 Resp 20 03/25/22 11:34 BP 102/50 L 03/25/22 11:34 Pulse Ox 94 03/25/22 11:34 O2 Del Method 03/25/22 11:34 O2 Flow Rate 1 03/25/22 05:08 Oxygen Flow Rate 1 03/25/22 03:14 BMI result Body Mass Index 24.5 Const: Other: .ex Objective Data Active Medications Acetaminophen (Acetaminophen 325 Mg Tablet) 650 mg PO Q6H PRN PRN Reason: Pain, Mild (Pain Scale 1-3) Albuterol/Ipratropium (Albuterol/Iprat 2.5/0.5mg 3 Ml Ampul.Neb) 3 ml INHALE RQ4H WHILE AWAKE [facility] Last Admin: 03/25/22 11:26 Dose: 3 ml Documented By: SONU Aspirin (Aspirin Enteric Coated 81 Mg Tablet.) 81 mg PO DAILY [facility] Last Admin: 03/25/22 08:04 Dose: 81 mg Documented By: CAROL Atorvastatin Calcium (Atorvastatin Calcium 40 Mg Tablet) 40 mg PO DAILY [facility] Last Admin: 03/25/22 08:04 Dose: 40 mg Documented By: CAROL Cefuroxime Axetil (Cefuroxime Axetil 500 Mg Tablet) 500 mg PO Q12H [facility] Last Admin: 03/25/22 11:52 Dose: 500 mg Documented By: CAROL Clonidine HCl (Clonidine Hcl 0.1 Mg Tablet) 0.1 mg PO BEDTIME [facility]; Protocol Last Admin: 03/24/22 21:41 Dose: Not Given Documented By: NEGIN Non-Admin Reason: Decreased Blood Pressure Fluoxetine HCl (Fluoxetine Hcl 20 Mg Capsule) 40 mg PO DAILY [facility] Last Admin: 03/25/22 08:04 Dose: 40 mg Documented By: CAROL Fluticasone/Vilanterol (Fluticasone/Vilanterol 200/25 Blst.W.Dev) 1 puff INHALE RDAILY [facility] Magnesium Hydroxide (Milk Of Magnesia 30 Ml Oral.Susp) 30 ml PO DAILY PRN PRN Reason: Constipation Melatonin (Melatonin 3 Mg Tablet) 6 mg PO BEDTIME PRN PRN Reason: Insomnia Methadone HCl (Methadone Hcl 20 Mg/2 Ml Oral.Conc) 120 mg PO DAILY [facility] Last Admin: 03/25/22 08:04 Dose: 120 mg Documented By: CAROL Non-Formulary Medication (Aclidinium [place] [Tudorza Pressair]) 1 inhalation INHALE BID [facility] Non-Formulary Medication (Ciclesonide) 1 puff INHALE DAILY [facility] Omeprazole (Omeprazole 20 Mg Capsule.Dr) 20 mg PO DAILY@0630 [facility] Last Admin: 03/25/22 06:57 Dose: 20 mg Documented By: LACHELLE Ondansetron HCl (Ondansetron Hcl 4 Mg/2 Ml Vial) 4 mg IVPUSH Q8H PRN PRN Reason: Nausea and Vomiting Pharmacy Consult (Consult Rx Perform Med Rec) 1 each MISCELLANE ONCE PRN PRN Reason: Consult order Prednisone (Prednisone 20 Mg Tablet) 40 mg PO DAILY [facility] Last Admin: 03/25/22 08:03 Dose: 40 mg Documented By: CAROL Sodium Chloride (0.9 % Sodium Chloride Flush 3 Ml Syringe) 3 ml IVFLUSH QSHIFT [facility] Last Admin: 03/25/22 08:03 Dose: 3 ml Documented By: CAROL Tiotropium [place] (Tiotropium [place] 18 Mcg Cap.W.Dev) 1 puff INHALE RDAILY [facility] Trazodone HCl (Trazodone Hcl 100 Mg Tablet) 200 mg PO BEDTIME [facility] Last Admin: 03/24/22 21:45 Dose: 200 mg Documented By: NEGIN Labs CBC & Chem 7: 03/25/22 04:24 03/24/22 07:08 Labs: Laboratory Results - last 24 hr 03/24/22 03/25/22 03/25/22 14:23 04:24 04:24 MCV 84.5 MCH 26.8 L MCHC 31.8 RDW 13.5 Plt Count 246 MPV 9.5 Absolute Nucleated RBC 0.000 Nucleated RBC % (auto) 0.0 PT 13.8 H INR 1.2 H aPTT Heparin Protocol 37.9 L D Assessment and Plan (1) COPD exacerbation: Status: Acute Plan 61 year old patient with history of asthma/copd, anxiety, cataract, history of opiate depedence on methadone, with 37 pack year history currently smokes about 1 cig per week, and osteoarhritis admitted for COPD exacerbation with elevated troponin. 1- COPD exacerbation- possible bibasilar pneumonia on cxr, afebrile -continue bronchodilators by Neb -Steroid 2-Possible pneumonia -No PNA on CT 3-Elevated troponin--trop flat, reviewed by cardiology and unlikely ACS, no further testing at this time 4-Opioid dependence- stable -continue methadone 5-Anxiety- uncontrolled current health issues -One time dose clonazepam -Continue fluoxetine, clonidine, trazodone 6- GERD -Continue ppi DVT prophylaxis:lovenox Full code need for inaptient: copd ex with active symptoms and need close monitoring, and likely dc tomorrow Quality Stroke Does the patient have a stroke diagnosis?: No VTE Prior VTE?: No VTE Risk Level:: Medical - moderate - high VTE Device Contraindication: Treatment Not Indicated VTE Drug Contraindication: N/A - Med Ordered
[2022-03-25] MEDS: traZODone HCL 100 MG TABLET 200 MG PO (20:10)
[2022-03-25] MEDS: cloNIDine HCL 0.1 MG TABLET PO (20:10)
[2022-03-26] VITALS (11 sets, daily range): BP systolic 103–121; BP diastolic 49–56; PULSE 61–91; RESP 16–20; TEMP 36.4–37; O2SAT 89–94
[2022-03-26] MEDS: Omeprazole 20 MG CAPSULE.DR PO (06:35)
[2022-03-26] MEDS: Albuterol/Iprat 2.5/0.5MG 3 ML AMPUL.NEB INHALE ×4 (07:49→20:25)
[2022-03-26] MEDS: 0.9 % Sodium Chloride Flush 3 ML SYRINGE IVFLUSH ×3 (08:14→20:13)
[2022-03-26] MEDS: FLUoxetine HCl 20 MG CAPSULE 40 MG PO (08:14)
[2022-03-26] MEDS: predniSONE 20 MG TABLET 40 MG PO (08:15)
[2022-03-26] MEDS: Aspirin Enteric Coated 81 MG TABLET.DR PO (08:15)
[2022-03-26] MEDS: methADONE HCl 20 MG/2 ML ORAL.CONC 120 MG PO (08:15)
[2022-03-26] MEDS: Atorvastatin Calcium 40 MG TABLET PO (08:15)
[2022-03-26] MEDS: Fluticasone/Vilanterol 200/25 BLST.W.DEV 1 PUFF INHALE (08:19)
--- NOTE | 2022-03-26 10:19 | P.PNIM_ITS ---
Subjective Subjective Date of Service: 03/26/22 Interval History: f/u on copd ex interval history: continues to improve but still has some sob Review of Systems sob, no fever Physical Exam Vital Signs: Vital Signs: Last Vital Signs Temp 97.9 F 03/26/22 07:15 Pulse 77 03/26/22 07:50 Resp 16 03/26/22 07:50 BP 121/56 L 03/26/22 07:15 Pulse Ox 94 03/26/22 07:15 O2 Del Method 03/26/22 07:15 O2 Flow Rate 1 03/25/22 05:08 Oxygen Flow Rate 1 03/25/22 03:14 BMI result Body Mass Index 24.5 Const: Other: General: AO X 3, no acute distress Resp: some wheezes, but good air entry no accessrory muscle use CVS: S1,S2,RRR GI: +BS, NT, no distention Skin: No rash Neuro: motor grossly intact Psych: appropriate affect Objective Data Active Medications Acetaminophen (Acetaminophen 325 Mg Tablet) 650 mg PO Q6H PRN PRN Reason: Pain, Mild (Pain Scale 1-3) Albuterol/Ipratropium (Albuterol/Iprat 2.5/0.5mg 3 Ml Ampul.Neb) 3 ml INHALE RQ4H WHILE AWAKE [facility] Last Admin: 03/26/22 07:49 Dose: 3 ml Documented By: GIULIANO Aspirin (Aspirin Enteric Coated 81 Mg Tablet.) 81 mg PO DAILY [facility] Last Admin: 03/26/22 08:15 Dose: 81 mg Documented By: CAROL Atorvastatin Calcium (Atorvastatin Calcium 40 Mg Tablet) 40 mg PO DAILY [facility] Last Admin: 03/26/22 08:15 Dose: 40 mg Documented By: CAROL Cefuroxime Axetil (Cefuroxime Axetil 500 Mg Tablet) 500 mg PO Q12H [facility] Last Admin: 03/25/22 22:54 Dose: 500 mg Documented By: TREVIN Clonidine HCl (Clonidine Hcl 0.1 Mg Tablet) 0.1 mg PO BEDTIME [facility]; Protocol Last Admin: 03/25/22 20:10 Dose: 0.1 mg Documented By: TREVIN Fluoxetine HCl (Fluoxetine Hcl 20 Mg Capsule) 40 mg PO DAILY [facility] Last Admin: 03/26/22 08:14 Dose: 40 mg Documented By: CAROL Fluticasone/Vilanterol (Fluticasone/Vilanterol 200/25 Blst.W.Dev) 1 puff INHALE RDAILY [facility] Last Admin: 03/26/22 08:19 Dose: 1 puff Documented By: GIULIANO Magnesium Hydroxide (Milk Of Magnesia 30 Ml Oral.Susp) 30 ml PO DAILY PRN PRN Reason: Constipation Melatonin (Melatonin 3 Mg Tablet) 6 mg PO BEDTIME PRN PRN Reason: Insomnia Methadone HCl (Methadone Hcl 20 Mg/2 Ml Oral.Conc) 120 mg PO DAILY [facility] Last Admin: 03/26/22 08:15 Dose: 120 mg Documented By: CAROL Non-Formulary Medication (Aclidinium [place] [Tudorza Pressair]) 1 inhalation INHALE BID [facility] Non-Formulary Medication (Ciclesonide) 1 puff INHALE DAILY [facility] Omeprazole (Omeprazole 20 Mg Capsule.Dr) 20 mg PO DAILY@0630 [facility] Last Admin: 03/26/22 06:35 Dose: 20 mg Documented By: TREVIN Ondansetron HCl (Ondansetron Hcl 4 Mg/2 Ml Vial) 4 mg IVPUSH Q8H PRN PRN Reason: Nausea and Vomiting Pharmacy Consult (Consult Rx Perform Med Rec) 1 each MISCELLANE ONCE PRN PRN Reason: Consult order Prednisone (Prednisone 20 Mg Tablet) 40 mg PO DAILY [facility] Last Admin: 03/26/22 08:15 Dose: 40 mg Documented By: CAROL Sodium Chloride (0.9 % Sodium Chloride Flush 3 Ml Syringe) [facility] Last Admin: 03/26/22 08:14 Dose: 3 ml Documented By: CAROL Tiotropium [place] (Tiotropium [place] 18 Mcg Cap.W.Dev) 1 puff INHALE RDAILY [facility] Last Admin: 03/26/22 08:19 Dose: 1 puff Documented By: GIULIANO Trazodone HCl (Trazodone Hcl 100 Mg Tablet) 200 mg PO BEDTIME [facility] Last Admin: 03/25/22 20:10 Dose: 200 mg Documented By: TREVIN Labs CBC & Chem 7: 03/25/22 04:24 03/24/22 07:08 Assessment and Plan (1) COPD exacerbation: Status: Acute Plan 61 year old patient with history of asthma/copd, anxiety, cataract, history of opiate depedence on methadone, with 37 pack year history currently smokes about 1 cig per week, and osteoarhritis admitted for COPD exacerbation with elevated troponin. 1- COPD exacerbation- possible bibasilar pneumonia on cxr, afebrile -continue bronchodilators by Neb -Prednisone for 5 days, -assess home O2 eval 2-Possible pneumonia -No PNA on CT 3-Elevated troponin--trop flat, reviewed by cardiology and unlikely ACS, no further testing at this time 4-Opioid dependence- stable -continue methadone 5-Anxiety- -Continue fluoxetine, clonidine, trazodone 6- GERD -Continue ppi DVT prophylaxis:lovenox Full code need for inaptient: copd ex with active symptoms and need close monitoring, and probable dc later today Quality Stroke Does the patient have a stroke diagnosis?: No VTE Prior VTE?: No VTE Risk Level:: Medical - moderate - high VTE Device Contraindication: Treatment Not Indicated VTE Drug Contraindication: N/A - Med Ordered
--- NOTE | 2022-03-26 10:36 | P.DS_ITS ---
DS: Providers Provider Date of Service: 03/27/22 Date of admission: 03/24/22 09:50 Primary care physician: TEETEE Brink Consults: 03/24/22 08:38 Consult to Cardiology Stat Consulting Provider: Wally Emmanuel Reason for consultation: positive troponin Has provider been notified: Yes 03/24/22 11:11 Consult to Cardiology Routine Consulting Provider: Wally Emmanuel Reason for consultation: cardiac ischemia 03/24/22 15:04 Consult to Pulmonology Routine Consulting Provider: Jonn Lenz Reason for consultation: COPD exacerbation with elev trop per cardiology Has provider been notified: No DS: Diagnosis Discharge Diagnosis (1) COPD exacerbation: Status: Acute DS: Summary Hospital Course Hospital Course: 61 year old patient with history of asthma/copd, anxiety, cataract, history of opiate depedence on methadone, and osteoarhritis presented to the ED this morning for evaluation of sob, maria, productive cough ongoing for several weeks and worsening over the last few days. This morning she states she also had epigastric discomfort with reflex. This morning developed retrosternal chest pain describes as non-radiating pressure/tightness rated 8/10. There has also been some weakness in the lower extremities over the past week. Initially had mild leukocytosis of 11.8, improved to 9.7. Initial troponin elevated at 547.0 with EKG #[address] elevation in inferior leds and nonspeific t-wave abnormalities in anterior leads. Repeat troponin flat at 534 with EKG #[address]-T wave abnormality. Patient started on heparin drip per protocol with concern for cardiac ischemia and given 324mg aspirin and nitroglycein ointment. Also placed on 2L O2 via NC and given IV solumedrol for COPD exacerbation. Last COPD exacerbation was 2 years ago requiring intubation. Has a lso received 2 duonebs. Vital signs normal. CXR in ed with bibasilar atelectasis. She has a 37 pack year hx and quit about 4 years ago, though admits to smoking about 1 cigarette per week currenlorin. Patient is comfortable at this time though complaining of anxiety. Hospital couser: Patient was admited for shortness of breath and initially concern that she was having acute TX and was started on heparin troponin was 547 and repeat 534 and was evaluated by cardiology and did not think there was acute TX so heparin was stopped. She was having treatred for exacerbation of COPD with bronchodilators by Neb, Prednisone . She was started on initially started on Cefuroxime for possible Pneumonia on CXR but CT chest didn't not reveal pneumonia and therefore Cefuroxime only for bronchitis. Final diagnosis: Acute exacerbation of COPD Elevated troponin Acute bronchitis Time Spent with Patient Time attestation: Total time spent providing and/or coordinating discharge services: Discharge coordination time: Greater than 30 minutes Quality: Safe Use of Opioids Does Pt have an Active Cancer Diagnosis on the Problem List?: No Quality: Stroke Does the patient have a stroke diagnosis?: No Physical Exam Vital Signs: Vital Signs: Selected Entries 03/27/22 07:54 Temperature 97.8 F Pulse Rate 62 Respiratory Rate 20 Blood Pressure 124/68 Pulse Oximetry 95 Oxygen Delivery Me thod Room Air Const: Other: General: AO X 3, no acute distress Resp: some wheezes, but good air entry no accessrory muscle use CVS: S1,S2,RRR GI: +BS, NT, no distention Skin: No rash Neuro: motor grossly intact Psych: appropriate affect Discharge Plan Discharge Anticipated Discharge Date/Time: 03/27/22 10:51 Patient Disposition: Home Health Service Discharge Diagnosis: COPD exacerbation, elevated troponin Referrals: Gracia Winchester FNP [Primary Care Provider] - 1 Week Discharge Medications: New cefuroxime axetil 500 mg Tablet 500 mg PO Q12H Qty: 6 0RF Continued trazodone 100 mg tablet 2 tab PO BEDTIME pantoprazole 40 mg tablet,delayed release (DR/EC) 1 tab PO DAILY albuterol sulfate [ProAir HFA] 90 mcg/actuation HFA aerosol inhaler 2 puff inhalation Q4H PRN (Reason: Wheezing) Tudorza Pressair 400 mcg/actuation Aerosol Powdr Breath Activated 1 inh INHALATION BID clonidine HCl 0.1 mg tablet 1 tab PO BEDTIME methadone 10 mg/mL Concentrate 120 mg PO DAILY fluoxetine 20 mg capsule 2 cap PO QAM ciclesonide 160 mcg/actuation Hfa Aerosol Inhaler 1 puff INHALATION DAILY Discharge Orders: Discharge Order (Routine); Ordered 03/27/22 Ordered By: Ignacio Viera Diet: Advance to usual diet Activity on Discharge: As tolerated Stand Alone Forms: Patient Portal Discharge page Care Plan Goals: Full recovery from COPD exacerbation Health Concerns: copd, Plan of Treatment: take prednisone as directed, use inhalers and follow up with your Doctor in a week Assessment: as above
[2022-03-26] MEDS: traZODone HCL 100 MG TABLET 200 MG PO (20:13)
[2022-03-27 03:22] VITALS: BP 108/56; PULSE 58; RESP 16; TEMP 36.6; O2SAT 93
[2022-03-27] MEDS: Omeprazole 20 MG CAPSULE.DR PO (05:54)
[2022-03-27 07:54] VITALS: BP 124/68; PULSE 62; RESP 20; TEMP 36.6; O2SAT 95
[2022-03-27] MEDS: FLUoxetine HCl 20 MG CAPSULE 40 MG PO (08:43)
[2022-03-27] MEDS: predniSONE 20 MG TABLET 40 MG PO (08:43)
[2022-03-27] MEDS: 0.9 % Sodium Chloride Flush 3 ML SYRINGE IVFLUSH (08:44)
[2022-03-27] MEDS: methADONE HCl 20 MG/2 ML ORAL.CONC 120 MG PO (08:44)
[2022-03-27] MEDS: Aspirin Enteric Coated 81 MG TABLET.DR PO (08:44)
[2022-03-27] MEDS: Atorvastatin Calcium 40 MG TABLET PO (08:44)
--- NOTE | 2022-03-27 10:49 | HO.PM.IMPN ---
Subjective Subjective Date of Service: 03/27/22 Interval History: f/u on copd ex interval history: better but some sob with activity, wheeze before bronchodilators Review of Systems sob, no fever Physical Exam Vital Signs: Vital Signs: Last Vital Signs Temp 97.8 F 03/27/22 07:54 Pulse 62 03/27/22 07:54 Resp 20 03/27/22 07:54 BP 124/68 03/27/22 07:54 Pulse Ox 95 03/27/22 07:54 O2 Del Method 03/27/22 07:54 O2 Flow Rate 1 03/25/22 05:08 Oxygen Flow Rate 1 03/25/22 03:14 BMI result Body Mass Index 24.5 Const: Other: General: AO X 3, no acute distress Resp: some wheezes, but good air entry no accessrory muscle use CVS: S1,S2,RRR GI: +BS, NT, no distention Skin: No rash Neuro: motor grossly intact Psych: appropriate affect Objective Data Active Medications Acetaminophen (Acetaminophen 325 Mg Tablet) 650 mg PO Q6H PRN PRN Reason: Pain, Mild (Pain Scale 1-3) Albuterol/Ipratropium (Albuterol/Iprat 2.5/0.5mg 3 Ml Ampul.Neb) 3 ml INHALE RQ4H WHILE AWAKE [facility] Last Admin: 03/27/22 07:33 Dose: Not Given Documented By: SONU Non-Admin Reason: Patient Refused Aspirin (Aspirin Enteric Coated 81 Mg Tablet.) 81 mg PO DAILY [facility] Last Admin: 03/27/22 08:44 Dose: 81 mg Documented By: MARSHALL Atorvastatin Calcium (Atorvastatin Calcium 40 Mg Tablet) 40 mg PO DAILY [facility] Last Admin: 03/27/22 08:44 Dose: 40 mg Documented By: MARSHALL Cefuroxime Axetil (Cefuroxime Axetil 500 Mg Tablet) 500 mg PO Q12H [facility] Last Admin: 03/27/22 00:56 Dose: 500 mg Documented By: SUSIE Clonidine HCl (Clonidine Hcl 0.1 Mg Tablet) 0.1 mg PO BEDTIME [facility]; Protocol Last Admin: 03/26/22 20:14 Dose: Not Given Documented By: SUSIE Non-Admin Reason: Patient Refused Fluoxetine HCl (Fluoxetine Hcl 20 Mg Capsule) 40 mg PO DAILY [facility] Last Admin: 03/27/22 08:43 Dose: 40 mg Documented By: MARSHALL Fluticasone/Vilanterol (Fluticasone/Vilanterol 200/25 Blst.W.Dev) 1 puff INHALE RDAILY [facility] Last Admin: 03/27/22 07:34 Dose: Not Given Documented By: SONU Non-Admin Reason: Patient Refused Magnesium Hydroxide (Milk Of Magnesia 30 Ml Oral.Susp) 30 ml PO DAILY PRN PRN Reason: Constipation Melatonin (Melatonin 3 Mg Tablet) 6 mg PO BEDTIME PRN PRN Reason: Insomnia Methadone HCl (Methadone Hcl 20 Mg/2 Ml Oral.Conc) 120 mg PO DAILY [facility] Last Admin: 03/27/22 08:44 Dose: 120 mg Documented By: MARSHALL Non-Formulary Medication (Aclidinium [place] [Tudorza Pressair]) 1 inhalation INHALE BID [facility] Non-Formulary Medication (Ciclesonide) 1 puff INHALE DAILY [facility] Omeprazole (Omeprazole 20 Mg Capsule.Dr) 20 mg PO DAILY@0630 [facility] Last Admin: 03/27/22 05:54 Dose: 20 mg Documented By: SUSIE Ondansetron HCl (Ondansetron Hcl 4 Mg/2 Ml Vial) 4 mg IVPUSH Q8H PRN PRN Reason: Nausea and Vomiting Pharmacy Consult (Consult Rx Perform Med Rec) 1 each MISCELLANE ONCE PRN PRN Reason: Consult order Prednisone (Prednisone 20 Mg Tablet) 40 mg PO DAILY [facility] Last Admin: 03/27/22 08:43 Dose: 40 mg Documented By: MARSHALL Sodium Chloride (0.9 % Sodium Chloride Flush 3 Ml Syringe) 3 ml IVFLUSH QSHIFT [facility] Last Admin: 03/27/22 08:44 Dose: 3 ml Documented By: MARSHALL Tiotropium [place] (Tiotropium [place] 18 Mcg Cap.W.Dev) 1 puff INHALE RDAILY [facility] Last Admin: 03/27/22 07:34 Dose: Not Given Documented By: SONU Non-Admin Reason: Patient Refused Trazodone HCl (Trazodone Hcl 100 Mg Tablet) 200 mg PO BEDTIME [facility] Last Admin: 03/26/22 20:13 Dose: 200 mg Documented By: HO.KIRBYKA Labs CBC & Chem 7: 03/25/22 04:24 03/24/22 07:08 Assessment and Plan (1) COPD exacerbation: Status: Acute Plan 61 year old patient with history of asthma/copd, anxiety, cataract, history of opiate depedence on methadone, with 37 pack year history currently smokes about 1 cig per week, and osteoarhritis admitted for COPD exacerbation with elevated troponin. 1- COPD exacerbation- possible bibasilar pneumonia on cxr, afebrile -continue bronchodilators by Neb -Prednisone for 5 days, -Did not qualify for home O2 2-? pneumonia -No PNA on CT, Ceftin for bronchitis 3-Elevated troponin--trop flat, reviewed by cardiology and unlikely ACS, no further testing at this time 4-Opioid dependence- stable -continue methadone 5-Anxiety- -Continue fluoxetine, clonidine, trazodone 6- GERD -Continue ppi DVT prophylaxis:lovenox Full code need for inaptient: copd ex with active symptoms and need close monitoring, and probable dc later today Quality Stroke Does the patient have a stroke diagnosis?: No VTE Prior VTE?: No VTE Risk Level:: Medical - moderate - high VTE Device Contraindication: Treatment Not Indicated VTE Drug Contraindication: N/A - Med Ordered
--- NOTE | 2022-03-27 11:26 | MHC.CM.PN ---
talked with dr paz confirmed no skilled servceis will be needed when dcd
[2022-03-27] MEDS: Albuterol/Iprat 2.5/0.5MG 3 ML AMPUL.NEB INHALE (11:28)
[2022-03-27 12:00] VITALS: BP 114/57; PULSE 67; RESP 18; TEMP 36.6; O2SAT 97
== END 2022-03-27 14:54 | disposition home or self-care (01) | DRG 140 ==
LOC: HO.ED 08:35 → HO.EDOVER 09:56 → HO.IMC 03-25 04:59
PROVIDERS: Internal Medicine; Physician Assistant; Admitting Provider Internal Medicine; Emergency Provider Emergency Medicine; PCP Nurse Practitioner Family; Visit Provider Internal Medicine
DX: J44.1 Chronic obstructive pulmonary disease with (acute) exacerbation (principal); F11.20 Opioid dependence, uncomplicated; J44.0 Chronic obstructive pulmonary disease with (acute) lower respiratory infection; F41.9 Anxiety disorder, unspecified; J98.11 Atelectasis; J20.9 Acute bronchitis, unspecified; R79.89 Other specified abnormal findings of blood chemistry; K21.9 Gastro-esophageal reflux disease without esophagitis; F17.210 Nicotine dependence, cigarettes, uncomplicated; M19.90 Unspecified osteoarthritis, unspecified site; Z71.6 Tobacco abuse counseling; Z20.822 Contact with and (suspected) exposure to COVID-19; Z56.0 Unemployment, unspecified; Z91.040 Latex allergy status; Z79.899 Other long term (current) drug therapy
CPT/HCPCS: 0241U; 36415; 71045; 71046; 71275; 80048; 80061; 84484; 85025; 85027; 85610; 85730; 93005; 93306; 99285; J2930; Q9957; Q9967

== ENCOUNTER 2022-04-19 16:47 | Emergency (ER) | payer OTHER, SELFPAY ==
--- NOTE | ~2022-04-19 | XR_ITS ---
EXAMINATION: PORTABLE CHEST 1 VIEW CLINICAL INFORMATION: SOB . COMPARISON: 03/24/2022 chest x-ray and 03/25/2022 CT scan. TECHNIQUE: Portable frontal view of the chest was obtained. FINDINGS: Lungs well-expanded with chronic volume loss in the left hemithorax similar to the prior study is compensatory hyperinflation of the right lung again noted. No superimposed focal infiltrate, effusion, edema, or pneumothorax. Cardiac mediastinal silhouettes within normal limits for size. Mild degenerative changes in the spine and shoulders. XR/XR chest 1V IMPRESSION: Chronic changes to the left hemithorax. No acute superimposed airspace disease.
[2022-04-19 17:23] VITALS: BP 143/68; BP 157/85; PULSE 81; PULSE 86; RESP 19; TEMP 36.7; O2SAT 94; O2SAT 96; BMI 23.0
--- NOTE | 2022-04-19 17:26 | ECG_ITS ---
Test Reason : DYSPENA Blood Pressure : / mmHG Vent. Rate : 071 BPM Atrial Rate : 071 BPM P-R Int : 118 ms QRS Dur : 090 ms QT Int : 354 ms P-R-T Axes : 063 008 -01 degrees QTc Int : 384 ms Sinus rhythm with marked sinus arrhythmia Otherwise normal ECG When compared with ECG of 24-MAR-2022 08:39, ST no longer elevated in Inferior leads Referred By: Venus Barry Electronically Signed By:JACOBY DURHAM
--- NOTE | 2022-04-19 17:44 | ED.SOB ---
HPI - SOB/Dyspnea General Chief Complaint: Dyspnea Stated Complaint: sob Time Seen by Provider: 04/19/22 17:26 Source: patient Mode of arrival: EMS History of Present Illness HPI Narrative: 61-year-old female arrives via EMS with worsening shortness of breath as well as having diaphoresis and complaining epigastric discomfort which is consistent with her COPD exacerbations as per patient. Patient does not use oxygen at home unless required. She denies new cough or increase in sputum production. Related Data Home Medications Medication Instructions Recorded Confirmed clonidine HCl 0.1 mg tablet 1 tab PO BEDTIME 03/24/22 03/24/22 fluoxetine 20 mg capsule 2 cap PO QAM 03/24/22 03/24/22 methadone 10 mg/mL oral concentrate 120 mg PO DAILY 03/24/22 03/24/22 pantoprazole 40 mg tablet,delayed 1 tab PO DAILY 03/24/22 03/24/22 release trazodone 100 mg tablet 2 tab PO BEDTIME 03/24/22 03/24/22 Previous Rx's Medication Instructions Recorded cefuroxime axetil 500 mg tablet 500 mg PO Q12H #6 tabs 03/26/22 aclidinium bromide 400 1 inh inhalation BID #1 ea 03/27/22 mcg/actuation breath activated powder inhaler (Tudorza Pressair) albuterol sulfate 90 mcg/actuation 2 puff inhalation Q4H PRN Wheezing 03/27/22 aerosol inhaler (ProAir HFA) #1 g ciclesonide 160 mcg/actuation 1 puff inhalation DAILY #1 g 03/27/22 aerosol inhaler prednisone 20 mg tablet 40 mg PO DAILY #4 tabs 03/27/22 prednisone 50 mg tablet 50 mg PO DAILY 4 days #4 tabs 04/19/22 Allergies Allergy/AdvReac Type Severity Reaction Status Date / Time latex Allergy Unknown Verified 11/25/20 11:32 Review of Systems Review of Systems: Pertinent positives and negatives as stated in HPI 10 point review of systems is otherwise negative. [facility] Past Medical History Source: nursing notes reviewed Medical History Anxiety Asthma with COPD (chronic obstructive pulmonary disease) Atelectasis of left lung Atelectasis of left lung Cardiac ischemia Cavitary pneumonia COPD exacerbation Pneumothorax on left Family History Family History Other Family history non-contributory Social History Social History Household Members: Spouse Housing: House Do you presently have visiting nurse or other home services: No Alcohol intake: never Patient Tobacco Use Status: Former Tobacco user Advance Directives: No Advance Directives Information Provided: No service: No Current occupational status: unemployed Physical Exam Vital Signs: Vital Signs: Last Vital Signs Temp 98.1 F 04/19/22 17:23 Pulse 67 04/19/22 18:35 Resp 13 04/19/22 18:35 BP 157/85 H 04/19/22 17:23 Pulse Ox 94 04/19/22 17:23 O2 Del Method 04/19/22 17:23 Oxygen Flow Rate 2.5 04/19/22 17:23 BMI result Body Mass Index 23.0 VITAL SIGNS: Reviewed. GENERAL: Elderly, chronically ill, in no acute distress. HEAD: Normocephalic/atraumatic EYES: PERRLA, EOMI EARS: Ext canals without abnormality NOSE: Nares patent bilateral OROPHARYNX: no oral lesions noted, posterior pharynx clear, dental caries NECK: Supple, no adenopathy LUNGS: Decreased breath sounds with expiratory wheeze, no rhonchi. SpO2<94> 2 L nasal cannula CARDIOVASCULAR: Regular rate and rhythm without noted murmurs, no JVD or lower extremity edema. ABDOMEN: Soft, non-tender, non-distended with bowel sounds. MUSCULOSKELETAL: No tenderness, deformities, or effusions noted on gross inspection. EXTREMITIES: No cyanosis, clubbing or edema. SKIN: Inspection of the skin reveals no rashes, diaphoresis NEUROLOGIC: Alert and oriented x 4. Strength and sensation to light touch were grossly intact x 4. Course Course Course Narrative: 61-year-old female with history and clinical presentation consistent with shortness of breath and will evaluate for evidence to suggest COPD or pneumonia. On review of all investigations no evidence to suggest acute COPD exacerbation and no evidence of bronchitis or pneumonia. Patient states that she does feel better after the DuoNeb, she will receive oral steroids. MDM - SOB/Dyspnea Lab Data Result diagrams: 04/19/22 18:04 04/19/22 18:04 Labs: Lab Results 04/19/22 04/19/22 04/19/22 Range/Units 18:04 18:04 18:04 WBC 9.1 (4.8-10.8) X10*3/uL RBC 5.12 D (4.20-5.50) X10*6/uL Hgb 13.1 D (12.0-16.0) g/dl Hct 42.2 D (37.0-47.0) % MCV 82.4 (80.0-98.0) fL MCH 25.6 L (27.0-33.0) pg MCHC 31.0 (31.0-35.0) g/dl RDW 13.2 (11.0-16.0) % Plt Count 328 D (160-400) X10*3/uL MPV 9.4 (9.4-12.3) fL Immature Gran % (Auto) 0.2 (0.0-0.4) % Neut % (Auto) 72.4 (45-73) % Lymph % (Auto) 17.2 L (20-40) % [place] % (Auto) 8.6 (2-11) % Eos % (Auto) 1.1 (0-4) % Baso % (Auto) 0.5 (0-2) % Lymph # (Auto) 1.6 (1.2-4.9) X10*3/uL [place] # (Auto) 0.8 (0.1-1.2) X10*3/uL Eos # (Auto) 0.1 (0.0-0.4) X10*3/uL Baso # (Auto) 0.1 (0.0-0.2) X10*3/uL Abs Immat Gran (auto) 0.02 (0.00-0.03) X10*3/uL Absolute Neuts (auto) 6.6 (2.0-8.3) x10*3/uL Absolute Nucleated RBC 0.000 (0.0-0.012) X10*3/uL Nucleated RBC % (auto) 0.0 (0.0-0.2) /100WBC VBG pH (7.32-7.43) VBG pCO2 mmHg VBG pO2 mmHg VBG HCO3 (22-26) mmol/L VBG O2 Saturation % VBG Base Excess mmol/L Sodium 140 (135-145) mmol/L Potassium 4.0 (3.3-5.1) mmol/L Chloride 100 (96-108) mmol/L Carbon Dioxide 26 (22-29) mmol/L Anion Gap 18 (12-20) BUN 15 (9-16) mg/dL Creatinine 0.72 (0.5-1.4) mg/dL Estim Creat Clear Calc 63.4 Estimated GFR > 60 Random Glucose 86 (60-115) mg/dL Lactic Acid 0.8 (0.5-2.0) mmol/L Calcium 9.5 (8.4-10.2) mg/dL Total Bilirubin 0.6 (0.0-1.0) mg/dL AST 26 D (5-31) U/L ALT 17 (0-31) U/L Alkaline Phosphatase 114 (39-117) U/L B-Natriuretic Peptide (<100) pg/mL Total Protein 7.7 (6.5-8.0) g/dL Albumin 4.3 (3.5-5.0) g/dL COVID-19 (PAVEL) (Negative) COVID-19 Clin Com 04/19/22 04/19/22 04/19/22 Range/Units 18:04 18:09 18:18 WBC (4.8-10.8) X10*3/uL RBC (4.20-5.50) X10*6/uL Hgb (12.0-16.0) g/dl Hct (37.0-47.0) % MCV (80.0-98.0) fL MCH (27.0-33.0) pg MCHC (31.0-35.0) g/dl RDW (11.0-16.0) % Plt Count (160-400) X10*3/uL MPV (9.4-12.3) fL Immature Gran % (Auto) (0.0-0.4) % Neut % (Auto) (45-73) % Lymph % (Auto) (20-40) % [place] % (Auto) (2-11) % Eos % (Auto) (0-4) % Baso % (Auto) (0-2) % Lymph # (Auto) (1.2-4.9) X10*3/uL [place] # (Auto) (0.1-1.2) X10*3/uL Eos # (Auto) (0.0-0.4) X10*3/uL Baso # (Auto) (0.0-0.2) X10*3/uL Abs Immat Gran (auto) (0.00-0.03) X10*3/uL Absolute Neuts (auto) (2.0-8.3) x10*3/uL Absolute Nucleated RBC (0.0-0.012) X10*3/uL Nucleated RBC % (auto) (0.0-0.2) /100WBC VBG pH 7.44 H (7.32-7.43) VBG pCO2 36 mmHg VBG pO2 71 mmHg VBG HCO3 25 (22-26) mmol/L VBG O2 Saturation 93.0 % VBG Base Excess 1.4 mmol/L Sodium (135-145) mmol/L Potassium (3.3-5.1) mmol/L Chloride (96-108) mmol/L Carbon Dioxide (22-29) mmol/L Anion Gap (12-20) BUN (9-16) mg/dL Creatinine (0.5-1.4) mg/dL Estim Creat Clear Calc Estimated GFR Random Glucose (60-115) mg/dL Lactic Acid (0.5-2.0) mmol/L Calcium (8.4-10.2) mg/dL Total Bilirubin (0.0-1.0) mg/dL AST (5-31) U/L ALT (0-31) U/L Alkaline Phosphatase (39-117) U/L B-Natriuretic Peptide 19 (<100) pg/mL Total Protein (6.5-8.0) g/dL Albumin (3.5-5.0) g/dL COVID-19 (PAVEL) Negative (Negative) COVID-19 Clin Com See Note ECG Data Attestation: I personally reviewed and interpreted this ECG as follows: Prior ECG tracings: available for review Discharge Plan Discharge Clinical Impression: Asthma with COPD (chronic obstructive pulmonary disease) Patient Disposition: Home, Self-Care Additional Instructions: 1. Complete the course of steroids that you have been prescribed. 2. Continue to use your inhaler regularly. Follow-up with your primary care provider by calling the office in the morning for re-evaluation Return to the ER for worsening symptoms. Prescriptions: New prednisone 50 mg tablet 50 mg PO DAILY 4 Days Qty: 4 0RF No Action trazodone 100 mg tablet 2 tab PO BEDTIME pantoprazole 40 mg tablet,delayed release (DR/EC) 1 tab PO DAILY clonidine HCl 0.1 mg tablet 1 tab PO BEDTIME methadone 10 mg/mL Concentrate 120 mg PO DAILY fluoxetine 20 mg capsule 2 cap PO QAM cefuroxime axetil 500 mg Tablet 500 mg PO Q12H Qty: 6 0RF prednisone 20 mg Tablet 40 mg PO DAILY Qty: 4 0RF albuterol sulfate [ProAir HFA] 90 mcg/actuation HFA aerosol inhaler 2 puff inhalation Q4H PRN (Reason: Wheezing) Qty: 1 0RF ciclesonide 160 mcg/actuation Hfa Aerosol Inhaler 1 puff INHALATION DAILY Qty: 1 0RF Tudorza Pressair 400 mcg/actuation Aerosol Powdr Breath Activated 1 inh INHALATION BID Qty: 1 0RF
[2022-04-19 18:10] LABS: MANUAL DIFF FLAG NO
[2022-04-19 18:17] LABS: Basophils Absolute Auto 0.1 X10*3/uL (0.0-0.2); Basophils Percent Auto 0.5 % (0-2); Eosinophils Absolute Auto 0.1 X10*3/uL (0.0-0.4); Eosinophils Percent Auto 1.1 % (0-4); Hematocrit 42.2 % (37.0-47.0); Hemoglobin 13.1 g/dl (12.0-16.0); Imm Gran Abs Auto 0.02 X10*3/uL (0.00-0.03); Imm Gran Pct Auto 0.2 % (0.0-0.4); Lymphocytes Absolute Auto 1.6 X10*3/uL (1.2-4.9); Lymphocytes Percent Auto 17.2 % (20-40); Mean Corpuscular Hemoglobin 25.6 pg (27.0-33.0); Mean Corpuscular Volume 82.4 fL (80.0-98.0); Mean Platelet Volume 9.4 fL (9.4-12.3); Monocytes Absolute Auto 0.8 X10*3/uL (0.1-1.2); Monocytes Percent Auto 8.6 % (2-11); Neutrophils Absolute Auto 6.6 x10*3/uL (2.0-8.3); Neutrophils Percent Auto 72.4 % (45-73); Platelet Count 328 X10*3/uL (160-400); Red Blood Count 5.12 X10*6/uL (4.20-5.50); Red Cell Distribution Width 13.2 % (11.0-16.0); White Blood Count 9.1 X10*3/uL (4.8-10.8)
[2022-04-19 18:25] LABS: Lactic Acid 0.8 mmol/L (0.5-2.0)
[2022-04-19 18:29] LABS: Alanine Aminotransferase 17 U/L (0-31); Albumin Level 4.3 g/dL (3.5-5.0); Alkaline Phosphatase 114 U/L (39-117); Anion Gap 18 (12-20); Aspartate Amino Transferase 26 U/L (5-31); Bilirubin Total 0.6 mg/dL (0.0-1.0); Blood Urea Nitrogen 15 mg/dL (9-16); Calcium 9.5 mg/dL (8.4-10.2); Carbon Dioxide 26 mmol/L (22-29); Chloride 100 mmol/L (96-108); Creatinine Clr Calc Pharmacy 63.4; Estimated Glomerular Filt Rate > 60; Glucose Random 86 mg/dL (60-115); Sodium 140 mmol/L (135-145); Total Protein 7.7 g/dL (6.5-8.0)
[2022-04-19 18:33] LABS: VBG Base Excess 1.4 mmol/L; VBG HCO3 25 mmol/L (22-26); VBG pCO2 36 mmHg; VBG pH 7.44 (7.32-7.43); VBG pO2 71 mmHg
[2022-04-19 18:35] VITALS: PULSE 67; RESP 13; O2SAT 96
[2022-04-19] MEDS: Albuterol/Iprat 2.5/0.5MG 3 ML AMPUL.NEB INHALE ×2 (18:35→20:16)
[2022-04-19 18:41] LABS: COVID-19 Test Negative (Negative); IDNOW Serial# 16C4AD1C
[2022-04-19 19:06] LABS: B Type Natriuretic Peptide 19 pg/mL (<100)
[2022-04-19 22:58] LABS: Venous Blood Gas Refer to POC result
== END 2022-04-19 20:53 | disposition home or self-care (01) ==
PROVIDERS: Emergency Provider Student in an Organized Health Care Education/Training Program
DX: J44.9 Chronic obstructive pulmonary disease, unspecified (principal); R06.02 Shortness of breath; Z20.822 Contact with and (suspected) exposure to COVID-19; Z87.891 Personal history of nicotine dependence
CPT/HCPCS: 36415; 71045; 80053; 82803; 83605; 83880; 85025; 87040; 87635; 93005; 94640; 99284

== ENCOUNTER 2023-02-07 22:02 | Emergency (ER) | payer OTHER, SELFPAY ==
--- NOTE | 2023-02-07 | ECG_ITS ---
Test Reason : SOB Blood Pressure : / mmHG Vent. Rate : 086 BPM Atrial Rate : 086 BPM P-R Int : 132 ms QRS Dur : 074 ms QT Int : 408 ms P-R-T Axes : 092 -29 052 degrees QTc Int : 488 ms Normal sinus rhythm Septal infarct , age undetermined Possible Lateral infarct , age undetermined Abnormal ECG When compared with ECG of 19-APR-2022 17:39, Septal infarct is now Present Borderline criteria for Lateral infarct are now Present Nonspecific T wave abnormality no longer evident in Inferior leads QT has lengthened Referred By: Generic ED Physician Electronically Signed By:Naveen Grant
--- NOTE | ~2023-02-07 | XR_ITS ---
EXAMINATION: XR CHEST CLINICAL INFORMATION: Cough COMPARISON: 04/19/2022 TECHNIQUE: Frontal view of the chest was obtained. FINDINGS: Redemonstrated volume loss in the left lung. Redemonstrated chronic subpleural opacity at the left base. No evidence of pneumothorax. Trace left pleural effusion versus pleural thickening/scarring at the left base. The cardiomediastinal contour is unremarkable. No acute osseous findings are seen. XR/XR chest 1V IMPRESSION: Redemonstrated chronic changes of the left lung with small pleural effusion versus scarring at the left base. Right lung is well-aerated.
--- NOTE | 2023-02-07 22:19 | ED.SOB ---
HPI - SOB/Dyspnea General Chief Complaint: Dyspnea Stated Complaint: Diff Breathing Time Seen by Provider: 02/07/23 22:18 Source: patient and EMS Mode of arrival: EMS Limitations: no limitations History of Present Illness HPI Narrative: patient with airconditioning at home increasing SOB now with increasing. Took her albuterol at home but was getting worse. Denies fever. MD elicited complaint: shortness of breath Pertinent past history: COPD Onset (ago): hour(s) Timing: constant Severity: moderate Related Data Home oxygen amount: none Home Medications Medication Instructions Recorded Confirmed methadone 10 mg/mL oral concentrate 120 mg PO DAILY 03/24/22 12/01/22 Previous Rx's Medication Instructions Recorded albuterol sulfate 2.5 mg/3 mL 2.5 mg (3 mL) inhalation QID PRN 04/24/22 (0.083 %) solution for nebulization shortness of breath or wheezing #180 mL fluticasone furoate 100 1 inh inhalation DAILY #60 ea 04/24/22 mcg-vilanterol 25 mcg/dose inhalation powder (Breo Ellipta) lorazepam 0.5 mg tablet (Ativan) 0.25 mg PO DAILY PRN anxiety #7 11/18/22 tabs tiotropium bromide 2.5 2 puff inhalation DAILY #4 grams 11/18/22 mcg/actuation mist for inhalation (Spiriva Respimat) trazodone 100 mg tablet 200 mg PO BEDTIME PRN insomnia #60 12/01/22 tabs sertraline 25 mg tablet 25 mg PO DAILY #30 tabs 01/11/23 albuterol sulfate 90 mcg/actuation 2 puff PO Q4H PRN for wheezing #18 01/26/23 aerosol inhaler (Ventolin HFA) ea Allergies Allergy/AdvReac Type Severity Reaction Status Date / Time latex Allergy Unknown Verified 12/01/22 17:09 Review of Systems Review of Systems: Yes all other systems are reviewed and are negative Neurologic: Denies Sensory deficit (Neuro) PMFSH Past Medical History Medical History Acute hypernatremia Asthma with COPD (chronic obstructive pulmonary disease) Atelectasis of left lung Cavitary pneumonia Environmental allergies Hyponatremia Insomnia Leukocytosis Leukocytosis Opioid dependence Pneumonia Pneumothorax on left Sepsis Snoring Uterine fibroid Surgical History History of delivery History of cholecystectomy History of left knee surgery Family History Family History Other Family history non-contributory Social History Social History Household Members: Spouse Housing: House Do you presently have visiting nurse or other home services: No Alcohol intake: current Alcohol intake frequency: does not drink Patient Tobacco Use Status: Former Tobacco user Tobacco use type: Cigarette Cigarette Packs Per Day: 1 Years Smoked: 40 years, quit smoking 4 years ago Smoked in Last 30 Days: No e-Cigarette/Vaping Use: Never Used Second Hand Smoke Exposure: Yes Use of substances other than those prescribed or required for medical reasons: No Advance Directives: No Advance Directives Information Provided: No Patient : No service: No Current occupational status: unemployed Cognitive needs: Yes (walker) Hearing needs: No Vision needs: No Physical Exam Vital Signs: Vital Signs: Last Vital Signs Temp 98.3 F 02/08/23 05:48 Pulse 78 02/08/23 05:48 Resp 13 02/08/23 05:48 BP 104/54 L 02/08/23 05:48 Pulse Ox 95 02/08/23 05:48 O2 Del Method Room Air 02/08/23 05:48 O2 Flow Rate 2 02/08/23 02:16 Oxygen Flow Rate 2 02/07/23 22:21 BMI result Body Mass Index 24.3 Const: Other: chronically ill appearing looking older than stated age Orientation/consciousness: oriented to person and patient oriented x3 Limitations: no limitations HEENT: Other: very poor dentition Head: Yes normal to inspection Ears: external ears normal General nose exam: Normal external nose present Mouth: Normal oral and palatal mucosa present and oropharynx normal Throat: Yes posterior oropharynx normal Eyes: General: appearance normal, both eyes and all related structures Neck: Other: supple Neck: Yes normal visual inspection Chest: Chest palpation & inspection: normal inspection of the chest Resp: Other: diffuse wheezing Cardio: Jugular venous distension: no JVD Rate: regular rate Rhythm: regular rhythm Heart sounds: S1 normal heart sound present and S2 normal heart sound present GI: Inspection: Yes normal to inspection Palpation (GI): Soft to palpation, nontender and No hepatosplenomegaly present Auscultation: normal bowel sounds : General: Yes no CVA tenderness Back/Spine/Pelvis: Back: no CVA tenderness Skin: General skin exam: no rashes or lesions noted Neuro: General: oriented to person and patient oriented x3 Cranial nerves: Yes CN's II-XII intact bilaterally Motor exam (neuro): 5/5 motor strength present throughout Sensory Exam: No Sensory deficit (Neuro) Extrem: General: Yes normal to inspection Psych: Appearance: grossly normal Course Reevaluation(s) Reevaluation #1: patient with increasing troponins discussed with Dr. Grant who feels that the patient has subtle finding in I and AVL and would like the patientt to go to [facility]. Time: 05:23 Reevaluation #2: I spent 40 minutes of critical care, with interventions, assessments, speaking to patient, consultants, and family. Time: 05:23 Reevaluation #3: patient accepted to [facility] Time: 06:26 Medications Administered Generic Name Dose Route Start Last Admin Trade Name Freq PRN Reason Stop Dose Admin Heparin Sodium (Porcine) 4,700 unit 02/08/23 04:48 02/08/23 06:13 Heparin Sodium,Porcine 5,000 Unit/Ml Vial 80 unit/kg (4700 unit) 4,700 unit IVPUSH Administration PROTOCOL BOLUS PRN 80 unit/kg - Heparin Protocol Protocol Heparin Sodium/Sodium Chloride 25,000 unit in 250 mls @ 0 mls/hr 02/08/23 05:00 02/08/23 06:02 Heparin Sodium,Porcine/1/2ns IVCONT 12 units/kg/hr .Q0M GURWINDER 7.01 mls/hr Administration Protocol Per Protocol Discontinued Medications Generic Name Dose Route Start Last Admin Trade Name Freq PRN Reason Stop Dose Admin Albuterol Sulfate 2.5 mg/ 5 mg 02/08/23 00:50 02/08/23 01:42 Albuterol Sulfate 2.5 mg INHALE 02/08/23 00:51 5 mg ONCE ONE Administration Albuterol/Ipratropium 3 ml 02/07/23 22:24 02/07/23 22:33 Albuterol/Iprat 2.5/0.5mg 3 Ml Ampul.Neb INHALE 02/07/23 22:25 3 ml ONCE ONE Administration Aspirin 162 mg 02/08/23 04:21 02/08/23 04:50 Aspirin Enteric Coated 81 Mg Tablet.Dr PO 02/08/23 04:22 162 mg ONCE ONE Administration Clopidogrel Bisulfate 300 mg 02/08/23 05:30 02/08/23 05:41 Clopidogrel Bisulfate 300 Mg Tablet PO 02/08/23 05:31 300 mg ONCE ONE Administration Heparin Sodium (Porcine) 4,700 unit 02/08/23 04:48 02/08/23 06:01 Heparin Sodium,Porcine 5,000 Unit/Ml Vial 80 unit/kg (4700 unit) 02/08/23 04:49 4,700 unit IVPUSH Administration ONCE ONE Lorazepam 0.5 mg 02/07/23 22:26 02/07/23 22:42 Lorazepam 0.5 Mg Tablet PO 02/07/23 22:27 0.5 mg ONCE ONE Administration Methylprednisolone Sodium Succinate 125 mg 02/07/23 22:24 02/07/23 22:42 Methylprednisolone Sod Succ 125 Mg/2 Ml Vial IVPUSH 02/07/23 22:25 125 mg ONCE ONE Administration Nitroglycerin 1 inch 02/08/23 04:21 02/08/23 04:50 Nitroglycerin 2 % Oint 1 Gm Packet TRANSDERMA 02/08/23 04:22 1 inch ONCE ONE Administration Medical Decision Making Differential Diagnosis Differential Diagnoses: The differential diagnosis associated with the presentation includes (COPD exacerbation, pneumonia, cardiac ischemia, STEMI were all considered) Admission/Observation Consideration of admission/observation: Escalation of care including admission/observation considered (upon arrival this patient with increasing shortness of breath was considered for admission) Consult Healthcare Provider Management of the patient was discussed with: Human Resources Trainer ([facility], Dr. Nickerson interventional cardiology at [facility]) Lab Data MDM Lab Attestation statement: I reviewed the patient's lab results. (no elevated WBC, troponins trending up) 02/07/23 22:41 02/07/23 22:41 Labs: Lab Results 02/07/23 02/07/23 02/07/23 Range/Units 22:41 22:41 22:41 WBC 11.4 H (4.8-10.8) X10*3/uL RBC 4.91 (4.20-5.50) X10*6/uL Hgb 13.2 (12.0-16.0) g/dl Hct 42.3 (37.0-47.0) % MCV 86.2 (80.0-98.0) fL MCH 26.9 L (27.0-33.0) pg MCHC 31.2 (31.0-35.0) g/dl RDW 12.8 (11.0-16.0) % Plt Count 218 D (160-400) X10*3/uL MPV 9.9 (9.4-12.3) fL Immature Gran % (Auto) 0.3 (0.0-0.4) % Neut % (Auto) 63.5 (45-73) % Lymph % (Auto) 22.6 (20-40) % [place] % (Auto) 6.5 (2-11) % Eos % (Auto) 6.5 H (0-4) % Baso % (Auto) 0.6 (0-2) % Lymph # (Auto) 2.6 (1.2-4.9) X10*3/uL [place] # (Auto) 0.7 (0.1-1.2) X10*3/uL Eos # (Auto) 0.7 H (0.0-0.4) X10*3/uL Baso # (Auto) 0.1 (0.0-0.2) X10*3/uL Abs Immat Gran (auto) 0.03 (0.00-0.03) X10*3/uL Absolute Neuts (auto) 7.3 (2.0-8.3) x10*3/uL Absolute Nucleated RBC 0.000 (0.0-0.012) X10*3/uL Nucleated RBC % (auto) 0.0 (0.0-0.2) /100WBC PT (10.0-13.1) SEC INR (0.9-1.1) APTT (26.0-36.4) SEC Sodium 140 (135-145) mmol/L Potassium 3.9 (3.3-5.1) mmol/L Chloride 101 (96-108) mmol/L Carbon Dioxide 28 (22-29) mmol/L Anion Gap 15 (12-20) BUN 13 (9-16) mg/dL Creatinine 0.83 (0.5-1.4) mg/dL Estim Creat Clear Calc 60.2 Estimated GFR > 60 Random Glucose 104 (60-115) mg/dL Calcium 9.1 (8.4-10.2) mg/dL Total Bilirubin 0.3 (0.0-1.0) mg/dL AST 20 (5-31) U/L ALT 13 (0-31) U/L Alkaline Phosphatase 83 (39-117) U/L Troponin I High Sens 197.8 H* (<3.5-17.0) ng/L Total Protein 7.8 (6.5-8.0) g/dL Albumin 4.1 (3.5-5.0) g/dL Specimen Comment 02/08/23 02/08/23 02/08/23 Range/Units 01:56 02:14 05:13 WBC 7.5 (4.8-10.8) X10*3/uL RBC 4.84 (4.20-5.50) X10*6/uL Hgb 12.9 (12.0-16.0) g/dl Hct 41.2 (37.0-47.0) % MCV 85.1 (80.0-98.0) fL MCH 26.7 L (27.0-33.0) pg MCHC 31.3 (31.0-35.0) g/dl RDW 12.7 (11.0-16.0) % Plt Count 218 (160-400) X10*3/uL MPV 10.1 (9.4-12.3) fL Immature Gran % (Auto) (0.0-0.4) % Neut % (Auto) (45-73) % Lymph % (Auto) (20-40) % [place] % (Auto) (2-11) % Eos % (Auto) (0-4) % Baso % (Auto) (0-2) % Lymph # (Auto) (1.2-4.9) X10*3/uL [place] # (Auto) (0.1-1.2) X10*3/uL Eos # (Auto) (0.0-0.4) X10*3/uL Baso # (Auto) (0.0-0.2) X10*3/uL Abs Immat Gran (auto) (0.00-0.03) X10*3/uL Absolute Neuts (auto) (2.0-8.3) x10*3/uL Absolute Nucleated RBC 0.000 (0.0-0.012) X10*3/uL Nucleated RBC % (auto) 0.0 (0.0-0.2) /100WBC PT (10.0-13.1) SEC INR (0.9-1.1) APTT (26.0-36.4) SEC Sodium (135-145) mmol/L Potassium (3.3-5.1) mmol/L Chloride (96-108) mmol/L Carbon Dioxide (22-29) mmol/L Anion Gap (12-20) BUN (9-16) mg/dL Creatinine (0.5-1.4) mg/dL Estim Creat Clear Calc Estimated GFR Random Glucose (60-115) mg/dL Calcium (8.4-10.2) mg/dL Total Bilirubin (0.0-1.0) mg/dL AST (5-31) U/L ALT (0-31) U/L Alkaline Phosphatase (39-117) U/L Troponin I High Sens 1147.3 H* D (<3.5-17.0) ng/L Total Protein (6.5-8.0) g/dL Albumin (3.5-5.0) g/dL Specimen Comment DELAY 02/08/23 Range/Units 05:42 WBC (4.8-10.8) X10*3/uL RBC (4.20-5.50) X10*6/uL Hgb (12.0-16.0) g/dl Hct (37.0-47.0) % MCV (80.0-98.0) fL MCH (27.0-33.0) pg MCHC (31.0-35.0) g/dl RDW (11.0-16.0) % Plt Count (160-400) X10*3/uL MPV (9.4-12.3) fL Immature Gran % (Auto) (0.0-0.4) % Neut % (Auto) (45-73) % Lymph % (Auto) (20-40) % [place] % (Auto) (2-11) % Eos % (Auto) (0-4) % Baso % (Auto) (0-2) % Lymph # (Auto) (1.2-4.9) X10*3/uL [place] # (Auto) (0.1-1.2) X10*3/uL Eos # (Auto) (0.0-0.4) X10*3/uL Baso # (Auto) (0.0-0.2) X10*3/uL Abs Immat Gran (auto) (0.00-0.03) X10*3/uL Absolute Neuts (auto) (2.0-8.3) x10*3/uL Absolute Nucleated RBC (0.0-0.012) X10*3/uL Nucleated RBC % (auto) (0.0-0.2) /100WBC PT 11.8 (10.0-13.1) SEC INR 1.0 (0.9-1.1) APTT 31.2 (26.0-36.4) SEC Sodium (135-145) mmol/L Potassium (3.3-5.1) mmol/L Chloride (96-108) mmol/L Carbon Dioxide (22-29) mmol/L Anion Gap (12-20) BUN (9-16) mg/dL Creatinine (0.5-1.4) mg/dL Estim Creat Clear Calc Estimated GFR Random Glucose (60-115) mg/dL Calcium (8.4-10.2) mg/dL Total Bilirubin (0.0-1.0) mg/dL AST (5-31) U/L ALT (0-31) U/L Alkaline Phosphatase (39-117) U/L Troponin I High Sens (<3.5-17.0) ng/L Total Protein (6.5-8.0) g/dL Albumin (3.5-5.0) g/dL Specimen Comment Independent Interpretation I performed an independent interpretation of an: EKG (sinus [address] or twave changes. #[address] or twave changes) and Plain X-Ray (CXR chronic changes) Independent Historian Clinical information obtained from an independent historian. History obtained from or confirmed by: Spouse External Record Review External record reviewed: Outpatient record Chronic Conditions Patient?s care impacted by: Hypertension Discharge Plan Discharge Clinical Impression: Acute non-ST elevation myocardial infarction (NSTEMI), Chronic obstructive airway disease Patient Disposition: Xfer Acute Care Hospital Transfer Details: need cath Prescriptions: No Action fluticasone furoate-vilanterol [Breo Ellipta] 100-25 mcg/dose blister with device 1 inh inhalation DAILY Qty: 60 3RF albuterol sulfate 2.5 mg /3 mL (0.083 %) solution for nebulization 2.5 mg inhalation QID PRN (Reason: shortness of breath or wheezing) Qty: 180 3RF sertraline 25 mg tablet 25 mg PO DAILY Qty: 30 1RF albuterol sulfate [Ventolin HFA] 90 mcg/actuation HFA aerosol inhaler 2 puff PO Q4H PRN (Reason: for wheezing) Qty: 18 0RF methadone 10 mg/mL Concentrate 120 mg PO DAILY trazodone 100 mg tablet 200 mg PO BEDTIME PRN (Reason: insomnia) Qty: 60 0RF Spiriva Respimat 2.5 mcg/actuation mist 2 puff inhalation DAILY Qty: 4 3RF lorazepam [Ativan] 0.5 mg tablet 0.25 mg PO DAILY PRN (Reason: anxiety) Qty: 7 0RF
[2023-02-07 22:21] VITALS: BP 117/49; PULSE 96; RESP 20; TEMP 36.6; O2SAT 95; BMI 25.3
[2023-02-07] MEDS: Albuterol/Iprat 2.5/0.5MG 3 ML AMPUL.NEB INHALE (22:33)
[2023-02-07 22:34] VITALS: PULSE 91; RESP 22; O2SAT 95
[2023-02-07] MEDS: LORazepam 0.5 MG TABLET PO (22:42)
[2023-02-07] MEDS: methylPREDNISolone Sod Succ 125 MG/2 ML VIAL IVPUSH (22:42)
[2023-02-07 22:55] LABS: Basophils Absolute Auto 0.1 X10*3/uL (0.0-0.2); Basophils Percent Auto 0.6 % (0-2); Eosinophils Absolute Auto 0.7 X10*3/uL (0.0-0.4); Eosinophils Percent Auto 6.5 % (0-4); Hematocrit 42.3 % (37.0-47.0); Hemoglobin 13.2 g/dl (12.0-16.0); Imm Gran Abs Auto 0.03 X10*3/uL (0.00-0.03); Imm Gran Pct Auto 0.3 % (0.0-0.4); Lymphocytes Absolute Auto 2.6 X10*3/uL (1.2-4.9); Lymphocytes Percent Auto 22.6 % (20-40); MANUAL DIFF FLAG NO; Mean Corpuscular HGB Conc 31.2 g/dl (31.0-35.0); Mean Corpuscular Hemoglobin 26.9 pg (27.0-33.0); Mean Corpuscular Volume 86.2 fL (80.0-98.0); Mean Platelet Volume 9.9 fL (9.4-12.3); Monocytes Absolute Auto 0.7 X10*3/uL (0.1-1.2); Monocytes Percent Auto 6.5 % (2-11); Neutrophils Absolute Auto 7.3 x10*3/uL (2.0-8.3); Neutrophils Percent Auto 63.5 % (45-73); Platelet Count 218 X10*3/uL (160-400); Red Blood Count 4.91 X10*6/uL (4.20-5.50); Red Cell Distribution Width 12.8 % (11.0-16.0); White Blood Count 11.4 X10*3/uL (4.8-10.8)
[2023-02-07 23:07] LABS: Alanine Aminotransferase 13 U/L (0-31); Albumin Level 4.1 g/dL (3.5-5.0); Alkaline Phosphatase 83 U/L (39-117); Anion Gap 15 (12-20); Aspartate Amino Transferase 20 U/L (5-31); Bilirubin Total 0.3 mg/dL (0.0-1.0); Blood Urea Nitrogen 13 mg/dL (9-16); Calcium 9.1 mg/dL (8.4-10.2); Carbon Dioxide 28 mmol/L (22-29); Chloride 101 mmol/L (96-108); Creatinine Clr Calc Pharmacy 60.2; Estimated Glomerular Filt Rate > 60; Glucose Random 104 mg/dL (60-115); Potassium 3.9 mmol/L (3.3-5.1); Sodium 140 mmol/L (135-145); Total Protein 7.8 g/dL (6.5-8.0)
[2023-02-07 23:19] LABS: Troponin-I High Sensitivity 197.8 ng/L (<3.5-17.0)
[2023-02-08 01:26] VITALS: RESP 18
[2023-02-08] MEDS: Albuterol Sulfate 2.5 MG, Albuterol Sulfate (0.083%) 2.5 MG 5 MG INHALE (01:42)
[2023-02-08 01:45] VITALS: PULSE 83; RESP 18; O2SAT 95
[2023-02-08 01:57] LABS: Delay - Chemistry DELAY
[2023-02-08 02:16] VITALS: BP 110/41; PULSE 88; RESP 17; TEMP 36.6; O2SAT 96
[2023-02-08 04:19] LABS: Troponin-I High Sensitivity 1147.3 ng/L (<3.5-17.0)
--- NOTE | 2023-02-08 04:21 | ECG_ITS ---
Test Reason : N STEMI Blood Pressure : / mmHG Vent. Rate : 079 BPM Atrial Rate : 079 BPM P-R Int : 130 ms QRS Dur : 082 ms QT Int : 472 ms P-R-T Axes : 078 007 032 degrees QTc Int : 541 ms Normal sinus rhythm Septal infarct (cited on or before 07-FEB-2023) Subtle lateral ST elevations with reciprocal lateral depressions Prolonged QT Abnormal ECG When compared with ECG of 07-FEB-2023 22:27, No significant changes seen Referred By: Kvng Jaramillo Electronically Signed By:Naveen Grant
[2023-02-08 04:23] VITALS: BMI 24.3
--- NOTE | 2023-02-08 04:48 | PC.NURSE ---
pt refused to use the commode to urinate, ambulating in the kang, sob
[2023-02-08] MEDS: Nitroglycerin 2 % Oint 1 GM Packet 1 INCH TRANSDERMA (04:50)
[2023-02-08] MEDS: Aspirin Enteric Coated 81 MG TABLET.DR 162 MG PO (04:50)
[2023-02-08 05:21] LABS: Hematocrit 41.2 % (37.0-47.0); Hemoglobin 12.9 g/dl (12.0-16.0); Mean Corpuscular HGB Conc 31.3 g/dl (31.0-35.0); Mean Corpuscular Hemoglobin 26.7 pg (27.0-33.0); Mean Corpuscular Volume 85.1 fL (80.0-98.0); Mean Platelet Volume 10.1 fL (9.4-12.3); Platelet Count 218 X10*3/uL (160-400); Red Blood Count 4.84 X10*6/uL (4.20-5.50); Red Cell Distribution Width 12.7 % (11.0-16.0); White Blood Count 7.5 X10*3/uL (4.8-10.8)
[2023-02-08] MEDS: Clopidogrel Bisulfate 300 MG TABLET PO (05:41)
[2023-02-08 05:48] VITALS: BP 104/54; PULSE 78; RESP 13; TEMP 36.8; O2SAT 95
[2023-02-08 05:55] LABS: Prothrombin Time 11.8 SEC (10.0-13.1)
[2023-02-08 05:58] LABS: Partial Thromboplastin Time 31.2 SEC (26.0-36.4)
[2023-02-08] MEDS: Heparin Sodium,Porcine 5,000 UNIT/ML VIAL 4700 UNIT IVPUSH ×2 (06:01→06:13)
[2023-02-08] MEDS: Heparin Sodium,Porcine/1/2NS 25,000 UNIT/250 ML IV.SOLN 7.01 UNIT IVCONT (06:02)
--- NOTE | 2023-02-08 06:44 | MHC.EDTECH ---
[facility] patient placement called back at [phone] to request facesheet which was then faxed over. Accepting DR. Rand Nurse to Nurse #[phone] Transferring over to [facility] M3 RM [id number]
--- NOTE | 2023-02-08 06:52 | MHC.EDTECH ---
call out to regina at [phone] to book transport to [facility], estimated eta given was 07
[2023-02-08 07:33] VITALS: BP 96/58; PULSE 75; RESP 11; TEMP 36.6; O2SAT 90
--- NOTE | 2023-02-08 07:47 | PC.NURSE ---
attempted to call nurse to nurse report to [facility] - no answer
--- NOTE | 2023-02-08 09:00 | PC.NURSE ---
nurse to nurse called to [facility]
== END 2023-02-08 09:02 | disposition short-term general hospital (02) ==
PROVIDERS: Emergency Provider Emergency Medicine; PCP Nurse Practitioner Family
DX: I21.4 Non-ST elevation (NSTEMI) myocardial infarction (principal); J44.9 Chronic obstructive pulmonary disease, unspecified; R06.02 Shortness of breath; F11.20 Opioid dependence, uncomplicated; Z87.891 Personal history of nicotine dependence; Z79.899 Other long term (current) drug therapy
CPT/HCPCS: 36415; 71045; 80053; 84484; 85025; 85027; 85610; 85730; 93005; 94640; 96374; 96375; 99285; J1643; J2930

== ENCOUNTER → 2023-02-07 22:27 | Outpatient (BNV) | payer OTHER, SELFPAY | PROVIDERS: Emergency Provider Emergency Medicine; PCP Nurse Practitioner Family; Visit Provider Internal Medicine Cardiovascular Disease | DX: R94.31 Abnormal electrocardiogram [ECG] [EKG] (principal) | CPT/HCPCS: 93010 ==

== ENCOUNTER → 2023-02-08 04:21 | Outpatient (BNV) | payer OTHER, SELFPAY | PROVIDERS: Emergency Provider Emergency Medicine; PCP Nurse Practitioner Family; Visit Provider Internal Medicine Cardiovascular Disease | DX: R94.31 Abnormal electrocardiogram [ECG] [EKG] (principal) | CPT/HCPCS: 93010 ==

== ENCOUNTER → 2023-02-08 23:59 | Outpatient (BNV) | payer OTHER, SELFPAY | PROVIDERS: PCP Nurse Practitioner Family; Visit Provider Internal Medicine Cardiovascular Disease | DX: I21.4 Non-ST elevation (NSTEMI) myocardial infarction (principal) | CPT/HCPCS: 93458; 99152 ==

== ENCOUNTER 2023-10-24 12:56 | Outpatient (AMB) | payer OTHER, SELFPAY ==
--- NOTE | 2023-10-24 13:05 | MHC.PC.OV ---
Vital Signs 10/24/23 13:07 Height 5 ft 1 in Weight 146 lb 6 oz BMI 27.7 BP 110/66 Blood Pressure Location Lt brachial Position Sitting Pulse 61 Pulse Source Pulse Oximeter Pulse Oximetry (%) 97 Oxygen Delivery Method Nasal Cannula Intake Visit Reasons: COPD Intake Note: Patient is here to follow up on COPD, [place], GERD. Er Manager Required: No Construction Sales Manager: Present Accompanied by: Spouse Allergies latex Allergy (Verified 10/24/23 13:33) Unknown Medication List - Last Reconciled 10/24/23 by Chandan Clayton MD albuterol sulfate 2.5 mg (3 mL) inhalation QID PRN albuterol sulfate 90 mcg/actuation (Ventolin HFA) 2 puffs PO Q4H PRN aspirin 81 mg PO DAILY lorazepam (Ativan) 0.5 mg PO DAILY PRN 30 days methadone 120 mg PO DAILY metoprolol succinate ER 25 mg PO DAILY pantoprazole 40 mg PO DAILY tiotropium bromide 2.5 mcg/actuation (Spiriva Respimat) 2 puffs inhalation DAILY trazodone 200 mg (2 x 100 mg) PO BEDTIME PRN Tobacco use date assessed: 10/24/23 Dental Screening Dental Screen Date: 10/24/23 Did you have a dental visit in the last 12 months?: No Did you have a dental problem in the last 6 months where you did not have access to dental care?: No Was dental information given to patient?: No HPI COPD HPI Details Patient comes in today for her follow up visit - was last seen by me in November 2022 She appears to have had about 3 or 4 hospital admissions since then for COPD exacerbations and acute respiratory failure, most recently at [facility] last week from 10/17/2023 to 10/19/2023 Patient states that she currently feels okay and that her cough and congestion has improved a lot since her brief admission to [facility] last week She presently has her oxygen on and she states that she uses it on an as-needed basis although on her hospitalization record from last week, she reportedly did not qualify for home oxygen even on ambulation when evaluated by pulmonary rehab and has been advised to consider a sleep study to assess for possible iVAPS qualification It was also noted that her symptoms seem to be more pronounced than her actual condition appear to be and the possibility of her anxiety contributing to her symptoms was also considered She states that she is currently only on Lorazepam as needed for her anxiety and feels that it is no longer helping and would like to have it switched over to a trial of Clonazepam instead She also continues to struggle with her sleep at night and admits that she has not really been taking her Trazodone previously She reportedly has a follow up appointment with [facility] in a couple of weeks Patient presently denies any headaches or dizziness Denies any chest pains No nausea/vomiting, no abdominal pain No change in bowel habits noted [facility] Medical History (Updated 10/25/23 @ 02:52 by Cahndan Clayton MD) Overweight (BMI 25.0-29.9) Takotsubo cardiomyopathy Insomnia Uterine fibroid Opioid dependence Snoring Environmental allergies Acute hypernatremia Pneumothorax on left Atelectasis of left lung Leukocytosis Cavitary pneumonia Hyponatremia Leukocytosis Sepsis Pneumonia Asthma with COPD (chronic obstructive pulmonary disease) Surgical History History of cholecystectomy History of left knee surgery History of delivery Family History Other Family history non-contributory Social History Household Members: Spouse Housing: House Do you presently have visiting nurse or other home services: No Alcohol intake: current Alcohol intake frequency: does not drink Comment: sleeping Patient Tobacco Use Status: Former Tobacco user Tobacco use type: Cigarette Cigarette Packs Per Day: 1 Years Smoked: 40 years, quit smoking 4 years ago e-Cigarette/Vaping Use: Never Used Second Hand Smoke Exposure: Yes service: No Current occupational status: unemployed Cognitive needs: No Hearing needs: No Vision needs: No Questionnaire PHQ-9 Over the last 2 weeks, how often have you been bothered by any of the following problems? 1. Little interest or pleasure in doing things: not at all 2. Feeling down, depressed, or hopeless: not at all 3. Trouble falling or staying asleep, or sleeping too much: not at all 4. Feeling tired or having little energy: not at all 5. Poor appetite or overeating: not at all 6. Feeling bad about yourself - or that you are a failure or have let yourself or your family down: not at all 7. Trouble concentrating on things, such as reading the newspaper or watching television: not at all 8. Moving or speaking so slowly that other people could have noticed. Or the opposite - being so fidgety or restless that you have been moving around a lot more than usual: not at all 9. Thoughts that you would be better off or of hurting yourself in some way: not at all Total score: 0 Depression Screening Interpretation: Negative Depression Screening Done: Yes 90097 - PHQ-9 Billing: Yes Source: Developed by Drs. Dejuan Madrid, Susanne Banks, Jay Hood and colleagues, with an educational valorie from [employer]. Thrive Questionnaire Date Thrive assessed: 10/24/23 I am a: Patient What is your living situation today?: I have a steady place to live Within the past 12 months, did the food you bought not last and you didn't have the money to get more?: Never true Within the past 12 months, did you worry whether your food would run out before you got money to buy more?: Never true Do you have trouble paying for medicines?: No Do you have trouble getting transportation to medical appointments?: No Do you have trouble paying your heating and electricity bill?: No Do you have trouble taking care of your child, family member or friend?: No Do you have trouble with day-to-day activities such as bathing, preparing meals, shopping, managing finances, etc.?: No Are you currently unemployed and looking for a job?: No Are you interested in more education?: No Currently or been in a relationship where the following occur: no concerns reported THRIVE Score: 0 AUDIT C Alcohol Use Questionnaire (AUDIT-C) 1. How often do you have a drink containing alcohol?: Never Total Score: 0 Score Reviewed/Action Taken: Yes [place]-7 AMB Questionnaire [place]-7 Date [place] - 7 assessed: 10/24/23 Feeling nervous, anxious, or on edge: 3 = Nearly every day Not being able to stop or control worryin = Several days Worrying too much about different things: 1 = Several days Trouble relaxin = Several days Being so restless that it is hard to sit still: 0 = Not at all Becoming easily annoyed or irritable: 0 = Not at all Feeling afraid as if something awful might happen: 1 = Several days Total [place]-7 score (0-4 normal; 5-9 mild; 10-14 moderate; 15-21 severe): 7 Source: Developed by Drs. Dejuan Madrid, Susanne Banks, Jay Hood and colleagues, with an educational valorie from [employer]. Review of Systems Const Reports difficulty sleeping, Reports fatigue, Denies fever(s) and Denies headache(s) ENT Denies dysphagia, Denies dizziness, Denies otalgia, Denies headache(s), Denies odynophagia and Denies sore throat Card Denies chest pain, Denies palpitations, Reports dyspnea and Reports dyspnea on exertion Resp Denies cough, Reports dyspnea, Reports dyspnea on exertion and Denies wheezing GI Denies abdominal pain, Denies constipation, Denies dysphagia, Denies heartburn, Denies diarrhea, Denies nausea, Denies odynophagia and Denies vomiting Denies difficulty voiding, Denies nocturia, Denies dysuria and Denies urinary urgency Skin/Breast Denies rash Neuro Denies dizziness and Denies headache(s) Psych Reports anxiety Endo Reports fatigue and Denies palpitations Aller/Immun Denies wheezing Physical exam (Primary Care) Vital Signs: Last Vital Signs Pulse 61 10/24/23 13:07 BP 110/66 10/24/23 13:07 Pulse Ox 97 10/24/23 13:07 Oxygen Delivery Method Nasal Cannula 10/24/23 13:07 BMI result Body Mass Index 27.7 Tobacco/Smoking Status: Tobacco use Status Tobacco use date assessed 10/24/23 10/24/23 13:14 Patient Tobacco Use Status Former Tobacco user 10/24/23 13:14 Tobacco use type Cigarette 10/24/23 13:14 e-Cigarette/Vaping Use Never Used 10/24/23 13:14 PHQ-9: PHQ-9 Score PHQ-9: Total score 0 10/24/23 19:17 Depression Screening Interpretation: Negative Thrive Assessment: Date of Thrive Assessment Date Thrive assessed 10/24/23 10/24/23 13:14 Currently or been in a relationship where the following occur: no concerns reported Const General: no acute distress and alert HENMT Ears: TM's normal bilaterally and EAC's normal Throat: Yes posterior oropharynx normal and Yes tonsils normal Neck Neck: Yes no lymphadenopathy and Yes supple Thyroid: Thyroid normal Resp Auscultation: no crackles, no rales, rhonchi (scattered) throughout, no wheezes and diminished lung sounds diffuse Cardio Rate: regular rate Rhythm: regular rhythm Heart sounds: no murmurs GI Palpation (GI): Soft to palpation and nontender Auscultation: normal bowel sounds General: Yes no CVA tenderness Back/Spine/Pelvis Back: no CVA tenderness Extrem General: Yes no clubbing, cyanosis or edema Assessment and Plan Assessment & Plan (1) Asthma with COPD (chronic obstructive pulmonary disease): Code(s): J44.9 - Chronic obstructive pulmonary disease, unspecified Plan: Stable/controlled Continue Spiriva Respimat 2.5 mcg 2 inhalations QD and Albuterol HFA 2 inhalations Q 6 hours PRN; she used to be on Breo Ellipta 100-25 mcg 1 inhalation QD but now appears to be on Sumbicort 80-4.5 mcg 2 inhalations BID instead - unclear as to why and when she was switched from Breo Ellipta Follow up with pulmonary as scheduled - states that she has a follow up appt with [facility] in a couple of weeks (2) Takotsubo cardiomyopathy: Code(s): I51.81 - Takotsubo syndrome Plan: Patient had coronary angiography done on 02/08/2023 that revealed only (+) mild disease in the LAD and L PDA and medical management and aggressive risk factor(s) modification were recommended Continue Aspirin 81 mg QD and Metoprolol ER 25 mg QD Follow up with cardiology as scheduled Will also have patient recheck her labs and fasting lipids in 3 months for follow up (3) Opioid dependence: Code(s): F11.20 - Opioid dependence, uncomplicated Qualifiers: Substance use status: in remission Qualified Code(s): F11.21 - Opioid dependence, in remission Plan: Continue Methadone 120 mg QD Follow up with the Methadone clinic as scheduled (4) GERD (gastroesophageal reflux disease): Code(s): K21.9 - Gastro-esophageal reflux disease without esophagitis Qualifiers: Esophagitis presence: without esophagitis Qualified Code(s): K21.9 - Gastro-esophageal reflux disease without esophagitis Plan: Dietary restrictions reinforced Continue Pantoprazole 40 mg QD (5) Insomnia: Code(s): G47.00 - Insomnia, unspecified Qualifiers: Insomnia type: unspecified Qualified Code(s): G47.00 - Insomnia, unspecified Plan: Sleep hygiene reinforced She was on Trazodone 200 mg Q HS but admits that she has not really been taking it - is advised to start on this to help with her sleep or there is really no point in keeping her on the medication if she is not going to take it She now agrees to start on it but will need her Rx refilled (6) Anxiety disorder: Code(s): F41.9 - Anxiety disorder, unspecified Qualifiers: Anxiety disorder type: generalized anxiety disorder Qualified Code(s): F41.1 - Generalized anxiety disorder Plan: Will start patient back on Sertraline at 100 mg QD for her increasing anxiety Per request, will also try switching her from Lorazepam 0.5 mg (which she feels has not been helping for a while now) to Clonazepam 0.5 mg QD PRN (7) Overweight (BMI 25.0-29.9): Code(s): E66.3 - Overweight Plan: Reinforced diet; exercise and weight loss are unrealistic given patient's current condition and multiple comorbidities Plan Follow up in 3 months Orders: Orders Complete Blood Count Auto Diff 3 Months D64.9 - Anemia, unspecified Comprehensive [place]. Panel Fast 3 Months E78.00 - Pure hypercholesterolemia, unspecified Lipid Panel 3 Months E78.00 - Pure hypercholesterolemia, unspecified Hemoglobin A1c 3 Months R73.9 - Hyperglycemia, unspecified TSH reflex Free T4 3 Months E78.00 - Pure hypercholesterolemia, unspecified UA CC w/rflx Micro + Cult 3 Months R30.0 - Dysuria Vitamin D 25-OH Total 3 Months E55.9 - Vitamin D deficiency, unspecified B Type Natriuretic Peptide 3 Months I50.9 - Heart failure, unspecified Medications: New sertraline 100 mg PO DAILY 90 days 90 tabs 1RF budesonide-formoterol 80-4.5 mcg/actuation (Symbicort) 2 puffs inhalation BID 10.2 grams 5RF clonazepam 0.5 mg PO DAILY 28 days PRN 28 tabs 0RF anxiety Refilled trazodone 200 mg (2 x 100 mg) PO BEDTIME PRN 60 tabs 0RF insomnia Discontinued lorazepam (Ativan) Discontinued Reason: Doctor's Order 0.5 mg PO DAILY 30 days PRN 20 tabs 0RF anxiety F41.1 - Generalized anxiety disorder Coding Level of Care Code Est Pt Level 4 (23187) Diagnoses Asthma with COPD (chronic obstructive pulmonary disease) J44.9 Takotsubo cardiomyopathy I51.81 Opioid dependence in remission F11.21 Substance use status: in remission Gastroesophageal reflux disease without esophagitis K21.9 Esophagitis presence: without esophagitis Insomnia, unspecified type G47.00 Insomnia type: unspecified Generalized anxiety disorder F41.1 Anxiety disorder type: generalized anxiety disorder Overweight (BMI 25.0-29.9) E66.3
[2023-10-24 13:07] VITALS: BP 110/66; PULSE 61; O2SAT 97; BMI 27.7
== END 2023-10-24 14:08 | disposition home or self-care (01) ==
PROVIDERS: PCP Internal Medicine; Visit Provider Internal Medicine
DX: J44.9 Chronic obstructive pulmonary disease, unspecified (principal); F11.21 Opioid dependence, in remission; I51.81 Takotsubo syndrome; K21.9 Gastro-esophageal reflux disease without esophagitis; G47.00 Insomnia, unspecified; F41.1 Generalized anxiety disorder; E66.3 Overweight
CPT/HCPCS: 99214

== ENCOUNTER 2024-01-30 15:33 | Outpatient (AMB) | payer OTHER, SELFPAY ==
--- NOTE | 2024-01-30 15:35 | A.OFFPC_ITS ---
Vital Signs 01/30/24 15:37 Height 5 ft 1 in Weight 171 lb 1.259 oz BMI 32.3 BP 120/70 Blood Pressure Location Lt brachial Position Sitting Pulse 83 Pulse Source Pulse Oximeter Pulse Oximetry (%) 93 Oxygen Delivery Method Nasal Cannula Intake Visit Reasons: COPD, insomnia, anxiety Intake Note: Patient is here to follow up on COPD, Insomnia, anxiety. Classified Copy Control Clerk Required: No Tool Profiling Machine Set Up Operator: Present Accompanied by: Spouse Allergies latex Allergy (Verified 01/30/24 16:05) Unknown Medication List - Last Reconciled 01/30/24 by Chandan Clayton MD albuterol sulfate 90 mcg/actuation (Ventolin HFA) 2 puffs PO Q4H PRN albuterol sulfate 2.5 mg (3 mL) inhalation QID PRN aspirin 81 mg PO DAILY 90 days budesonide-formoterol 80-4.5 mcg/actuation (Symbicort) 2 puffs inhalation BID clonazepam 0.5 mg PO DAILY PRN 28 days methadone 120 mg PO DAILY pantoprazole 40 mg PO DAILY sertraline 100 mg PO DAILY 90 days tiotropium bromide 2.5 mcg/actuation (Spiriva Respimat) 2 puffs inhalation DAILY trazodone 200 mg (2 x 100 mg) PO BEDTIME PRN Tobacco use date assessed: 01/30/24 Dental Screening Dental Screen Date: 10/24/23 HPI COPD, insomnia, anxiety HPI Details Patient comes in today for her follow-up visit States that she has gained a lot of weight over the past few weeks She has also been experiencing increased swelling of both her legs and feet lately Relates experiencing increasing short of breath, especially with exertion, over the past couple of weeks She currently still has oxygen on at 3 liters/minute - states that she normally stays on oxygen at 2 LPM at home but increases it to 3 LPM when she goes out She denies any exertional chest pains Denies any headaches or dizziness; denies any fever No nausea /vomiting, no abdominal pain No change in bowel habits noted She has also noticed increasing urinary frequency lately but she denies any nocturia States that she has been taking all of her current medications for years and has not been prescribed any new medicine lately She also has not eaten or drank anything unusual or out of the ordinary over the past few weeks She was not able to get her follow-up labs done prior to her appointment today Is also requesting for a prescription for a pulse oximeter so she can use this to help check her oxygen saturation [facility] Medical History Overweight (BMI 25.0-29.9) Takotsubo cardiomyopathy Insomnia Uterine fibroid Opioid dependence Snoring Environmental allergies Acute hypernatremia Pneumothorax on left Atelectasis of left lung Leukocytosis Cavitary pneumonia Hyponatremia Leukocytosis Sepsis Pneumonia Asthma with COPD (chronic obstructive pulmonary disease) Surgical History History of cholecystectomy History of left knee surgery History of delivery Family History Other Family history non-contributory Social History Household Members: Spouse Housing: House Do you presently have visiting nurse or other home services: No Alcohol intake: current Alcohol intake frequency: does not drink Comment: sleeping Patient Tobacco Use Status: Former Tobacco user Tobacco use type: Cigarette Cigarette Packs Per Day: 1 Years Smoked: 40 years, quit smoking 4 years ago e-Cigarette/Vaping Use: Never Used Second Hand Smoke Exposure: Yes service: No Current occupational status: unemployed Cognitive needs: Yes (wheelchair, ) Hearing needs: No Vision needs: Yes (Reading Glasses) Questionnaire PHQ-9 Over the last 2 weeks, how often have you been bothered by any of the following problems? 1. Little interest or pleasure in doing things: not at all 2. Feeling down, depressed, or hopeless: not at all 3. Trouble falling or staying asleep, or sleeping too much: not at all 4. Feeling tired or having little energy: not at all 5. Poor appetite or overeating: not at all 6. Feeling bad about yourself - or that you are a failure or have let yourself or your family down: not at all 7. Trouble concentrating on things, such as reading the newspaper or watching television: not at all 8. Moving or speaking so slowly that other people could have noticed. Or the opposite - being so fidgety or restless that you have been moving around a lot more than usual: not at all 9. Thoughts that you would be better off or of hurting yourself in some way: not at all Total score: 0 Depression Screening Interpretation: Negative Depression Screening Done: Yes 56925 - PHQ-9 Billing: Yes Source: Developed by Drs. Dejuan Madrid, Susanne Banks, Jay Hood and colleagues, with an educational valorie from [employer]. Thrive Questionnaire Date Thrive assessed: 10/24/23 [place]-7 AMB Questionnaire [place]-7 Date [place] - 7 assessed: 10/24/23 Source: Developed by Drs. Dejuan Madrid, Susanne Banks, Jay Hood and colleagues, with an educational valorie from [employer]. Review of Systems Const Details: increased swelling of both legs and feet Denies chills, Reports difficulty sleeping, Reports fatigue, Denies fever(s), Denies headache(s) and Reports weight gain ENT Denies dysphagia, Denies dizziness, Denies otalgia, Denies headache(s), Denies odynophagia and Denies sore throat Card Denies chest pain, Denies palpitations, Reports dyspnea and Reports dyspnea on exertion Resp Denies chest congestion, Denies cough, Reports dyspnea, Reports dyspnea on exertion and Denies wheezing GI Denies abdominal pain, Denies constipation, Denies dysphagia, Denies heartburn, Denies diarrhea, Denies nausea, Denies odynophagia and Denies vomiting Details: (+) urinary frequency Denies difficulty voiding, Denies nocturia, Denies dysuria and Denies urinary urgency Musc Denies back pain Skin/Breast Denies rash Neuro Denies dizziness and Denies headache(s) Psych Reports anxiety Endo Reports fatigue and Denies palpitations Aller/Immun Denies wheezing Physical exam (Primary Care) Vital Signs: Last Vital Signs Pulse 83 01/30/24 15:37 BP 120/70 01/30/24 15:37 Pulse Ox 93 01/30/24 15:37 Oxygen Delivery Method Nasal Cannula 01/30/24 15:37 BMI result Body Mass Index 32.3 Tobacco/Smoking Status: Tobacco use Status Tobacco use date assessed 01/30/24 01/30/24 15:44 Patient Tobacco Use Status Former Tobacco user 01/30/24 15:44 Tobacco use type Cigarette 01/30/24 15:44 e-Cigarette/Vaping Use Never Used 01/30/24 15:44 PHQ-9: PHQ-9 Score PHQ-9: Total score 0 01/30/24 20:43 Depression Screening Interpretation: Negative Thrive Assessment: Date of Thrive Assessment Date Thrive assessed 10/24/23 01/30/24 15:44 Const General: no acute distress, alert and tired appearing HENMT Ears: TM's normal bilaterally and EAC's normal Throat: Yes posterior oropharynx normal and Yes tonsils normal Neck Neck: Yes no lymphadenopathy and Yes supple Thyroid: Thyroid normal Resp Auscultation: no crackles, no rales, rhonchi (occasional) throughout, no wheezes and diminished lung sounds bilateral Cardio Rate: regular rate Rhythm: regular rhythm Heart sounds: no murmurs GI Palpation (GI): Soft to palpation and nontender Auscultation: normal bowel sounds General: Yes no CVA tenderness Back/Spine/Pelvis Back: no CVA tenderness Thoracic/Lumbar Spine: No lumbar spinal tenderness Skin Other: (+) erythema of the distal half of both lower legs and both ankles; (+) few scaling rash over the distal third of the right lower leg Extrem General: Yes edema (3+ edema of both lower extremities) Assessment and Plan Assessment & Plan (1) Edema: Code(s): R60.9 - Edema, unspecified Qualifiers: Edema type: generalized Qualified Code(s): R60.1 - Generalized edema Plan: Unknown etiology but with patient's history of Takotsubo's cardiomyopathy, am concerned that this may be cardiac related Have advised patient that we should also check her out for potential renal causes Will send patient for labs and chest x-rays MADELINE for further evaluation - have advised her to try to get these done as soon she can has the plan of treatment will depend on how her labs come out (her previously ordered labs were updated and printed out for patient) Patient states that she will try to get these done early tomorrow morning (2) Weight gain: Code(s): R63.5 - Abnormal weight gain Plan: Patient reports increased weight gain lately - has gained almost 25 pounds since her last visit, which she states mostly occurred recently Have advised her that her recent weight gain is likely related to increased edema and that the plan of management here will depend on how her labs and chest x-rays come out so she should try to get these done MADELINE (3) Takotsubo cardiomyopathy: Code(s): I51.81 - Takotsubo syndrome Plan: Patient had coronary angiography done on 02/08/2023 that revealed only (+) mild disease in the LAD and L PDA and medical management and aggressive risk factor(s) modification were recommended Continue Aspirin 81 mg QD and Metoprolol ER 25 mg QD Follow up with cardiology as scheduled (4) Asthma with COPD (chronic obstructive pulmonary disease): Code(s): J44.9 - Chronic obstructive pulmonary disease, unspecified Plan: Continue Spiriva Respimat 2.5 mcg 2 inhalations QD, Symbicort 80-4.5 mcg 2 inhalations BID and Albuterol HFA 2 inhalations Q 6 hours PRN Follow up with [facility] as scheduled Per request, Rx for pulse oximeter printed out and handed to patient - have advised that she can likely get this at any medical supply store (5) Opioid dependence: Code(s): F11.20 - Opioid dependence, uncomplicated Qualifiers: Substance use status: in remission Qualified Code(s): F11.21 - Opioid dependence, in remission Plan: Continue Methadone 120 mg QD Follow up with the Methadone clinic as scheduled (6) GERD (gastroesophageal reflux disease): Code(s): K21.9 - Gastro-esophageal reflux disease without esophagitis Qualifiers: Esophagitis presence: without esophagitis Qualified Code(s): K21.9 - Gastro-esophageal reflux disease without esophagitis Plan: Dietary restrictions reinforced Continue Pantoprazole 40 mg QD (7) Insomnia: Code(s): G47.00 - Insomnia, unspecified Qualifiers: Insomnia type: unspecified Qualified Code(s): G47.00 - Insomnia, unspecified Plan: Sleep hygiene reinforced Continue Trazodone 200 mg Q HS PRN (8) Anxiety disorder: Code(s): F41.9 - Anxiety disorder, unspecified Qualifiers: Anxiety disorder type: generalized anxiety disorder Qualified Code(s): F41.1 - Generalized anxiety disorder Plan: Continue Sertraline 100 mg QD and Clonazepam 0.5 mg QD PRN Plan Follow up in 3 months or earlier depending on how her labs and chest x-rays come out Orders: Orders Erythrocyte Sedimentation Rate 01/30/24 M79.7 - Fibromyalgia, R60.9 - Edema, unspecified, R63.5 - Abnormal weight gain C Reactive Protein 01/30/24 R60.9 - Edema, unspecified, R63.5 - Abnormal weight gain XR chest 2V 01/30/24 R06.00 - Dyspnea, unspecified Medications: New [PULSE OXIMETRY] As directed 1 ea 0RF hypoxemia J44.9 - Chronic obstructive pulmonary disease, unspecified [PULSE OXIMETER] As directed 1 ea 0RF hypoxemia J44.9 - Chronic obstructive pul monary disease, unspecified Coding Level of Care Code Est Pt Level 4 (06511) Diagnoses Generalized edema R60.1 Edema type: generalized Weight gain R63.5 Takotsubo cardiomyopathy I51.81 Asthma with COPD (chronic obstructive pulmonary disease) J44.9 Opioid dependence in remission F11.21 Substance use status: in remission Gastroesophageal reflux disease without esophagitis K21.9 Esophagitis presence: without esophagitis Insomnia, unspecified type G47.00 Insomnia type: unspecified Generalized anxiety disorder F41.1 Anxiety disorder type: generalized anxiety disorder
[2024-01-30 15:37] VITALS: BP 120/70; PULSE 83; O2SAT 93; BMI 32.3
== END 2024-01-30 16:30 | disposition home or self-care (01) ==
PROVIDERS: PCP Internal Medicine; Visit Provider Internal Medicine
DX: R60.1 Generalized edema (principal); J44.9 Chronic obstructive pulmonary disease, unspecified; F11.21 Opioid dependence, in remission; F41.1 Generalized anxiety disorder; R63.5 Abnormal weight gain; I51.81 Takotsubo syndrome; K21.9 Gastro-esophageal reflux disease without esophagitis; G47.00 Insomnia, unspecified
CPT/HCPCS: 99214

== ENCOUNTER 2024-01-31 08:18 | Outpatient (REF) | payer OTHER, SELFPAY ==
--- NOTE | ~2024-01-31 | XR_ITS ---
EXAMINATION: XR CHEST CLINICAL INFORMATION: Dyspnea COMPARISON: Chest x-ray on 02/07/2023 TECHNIQUE: 2 views of the chest were obtained. FINDINGS: The cardiac silhouette is normal. There is mild diffuse bronchial wall thickening and pulmonary edema. There are no areas of consolidation. There are no pleural effusions or pneumothoraces. The bones and soft tissues are unremarkable for the patient's age. XR/XR chest 2V IMPRESSION: Mild pulmonary edema.
[2024-01-31 08:33] LABS: MANUAL DIFF FLAG NO
[2024-01-31 08:53] LABS: Basophils Absolute Auto 0.1 X10*3/uL (0.0-0.2); Basophils Percent Auto 0.9 % (0-2); Eosinophils Absolute Auto 0.4 X10*3/uL (0.0-0.4); Eosinophils Percent Auto 6.3 % (0-4); Hematocrit 31.3 % (37.0-47.0); Hemoglobin 9.3 g/dl (12.0-16.0); Imm Gran Abs Auto 0.02 X10*3/uL (0.00-0.03); Imm Gran Pct Auto 0.3 % (0.0-0.4); Lymphocytes Absolute Auto 1.4 X10*3/uL (1.2-4.9); Lymphocytes Percent Auto 20.6 % (20-40); Mean Corpuscular HGB Conc 29.7 g/dl (31.0-35.0); Mean Corpuscular Hemoglobin 25.9 pg (27.0-33.0); Mean Corpuscular Volume 87.2 fL (80.0-98.0); Mean Platelet Volume 10.3 fL (9.4-12.3); Monocytes Absolute Auto 0.8 X10*3/uL (0.1-1.2); Monocytes Percent Auto 11.3 % (2-11); Neutrophils Percent Auto 60.6 % (45-73); Platelet Count 248 X10*3/uL (160-400); Red Blood Count 3.59 X10*6/uL (4.20-5.50); Red Cell Distribution Width 13.5 % (11.0-16.0); White Blood Count 6.6 X10*3/uL (4.8-10.8)
[2024-01-31 08:59] LABS: Estimated Average Glucose 94 mg/dL; Hemoglobin A1c % 4.9 % (<6.0)
[2024-01-31 09:33] LABS: Erythrocyte Sedimentation Rate 34 MM/HR (0-20)
[2024-01-31 09:38] LABS: B Type Natriuretic Peptide 19 pg/mL (<100)
[2024-01-31 09:46] LABS: Alanine Aminotransferase 10 U/L (0-31); Albumin Level 3.9 g/dL (3.5-5.0); Alkaline Phosphatase 89 U/L (39-117); Anion Gap 11 (12-20); Aspartate Amino Transferase 20 U/L (5-31); Bilirubin Total 0.4 mg/dL (0.0-1.0); Blood Urea Nitrogen 11 mg/dL (9-16); C Reactive Protein 1.02 mg/dL (< or = 0.50); Calcium 8.9 mg/dL (8.4-10.2); Carbon Dioxide 36 mmol/L (22-29); Chloride 99 mmol/L (96-108); Cholesterol 177 mg/dL (<200); Estimated Glomerular Filt Rate > 60; Glucose Fasting 88 mg/dL (60-99); HDL Cholesterol 55 mg/dL (>40); LDL Cholesterol Calculated 86 mg/dL (<100); Potassium 4.1 mmol/L (3.3-5.1); Sodium 142 mmol/L (135-145); Total Protein 7.2 g/dL (6.5-8.0); Triglycerides 182 mg/dL (<150)
[2024-01-31 10:06] LABS: TSH reflex Free T4 1.69 uIU/mL (0.32-4.0); Vitamin D 25-OH Total 9.8 ng/mL (>30)
== END 2024-01-31 08:19 | disposition home or self-care (01) ==
LOC: HO.XRAY 08:18
PROVIDERS: PCP Internal Medicine; Visit Provider Internal Medicine
DX: E78.00 Pure hypercholesterolemia, unspecified (principal); M79.7 Fibromyalgia; R60.9 Edema, unspecified; R63.5 Abnormal weight gain; D64.9 Anemia, unspecified; R73.9 Hyperglycemia, unspecified; E55.9 Vitamin D deficiency, unspecified; I50.9 Heart failure, unspecified; R06.00 Dyspnea, unspecified
CPT/HCPCS: 36415; 71046; 80053; 80061; 82306; 83036; 83880; 84443; 85025; 85652; 86140

== ENCOUNTER → 2024-04-04 12:59 | Outpatient (REF) | payer OTHER, SELFPAY ==
--- NOTE | 2024-04-04 13:02 | CA_ITS ---
Transthoracic Echocardiogram Patient (Last, First, Middle): Jessica Pollard, Gender: Female Date of : 1960 Age: 63 Procedure Date: 04/04/2024 Procedure Type: Transthoracic Echocardiogram Location: OP Height: 154.94 cm Weight: 72.58 kg BSA: 1.72 m2 Heart Rate: bpm BP: 118 / 66 mmHg Benzene Operator: TO Referring MD: Chandan Clayton MD Medical Geneticist: Wally Emmanuel MD Symptoms: R06.09 - Other forms of dyspnea Study Quality: Technically Difficult/Contrast ECG Rhythm: Sinus Conclusions: - 1. Technically difficult study 2. Normal LV ejection fraction of 60 65% 3. Mildly dilated left atrium 4. Poorly visualized cardiac valves with normal cardiac valvular Dopplers 5. Normal RV systolic pressure with mildly elevated right atrial pressures Findings Procedure Information Contrast agent, definity, is being given per protocol without apparent complications. The study quality is limited by lung artifact. Left Ventricle Normal left ventricular size, thickness, and systolic function. The visually estimated ejection fraction is between 60-65%. Spectral Doppler is indicative of a normal filling pattern. Right Ventricle The right ventricle was not well visualized. Atria The left atrium is mildly dilated. Interatrial shunt cannot be excluded. The right atrium was not well visualized. Aortic Valve The aortic valve was not well visualized. There is no aortic valve stenosis. There is no aortic valve regurgitation. Mitral Valve The mitral valve was not well visualized. There is mild posterior mitral annular calcification. There is no mitral valve regurgitation. There is no mitral valve stenosis. Pulmonic Valve The pulmonic valve was not well visualized. Tricuspid Valve The tricuspid valve was not well visualized. There is mild tricuspid valve regurgitation. The right ventricular systolic pressure is normal. Mildly elevated right atrial pressure. There is no evidence of pulmonary hypertension. Great Vessels The aorta was not well visualized. The pulmonary artery was not well visualized. Venous The inferior vena cava is mildly dilated and collapses less than 50% with inspiration. Pericardium/Pleural The pericardium was not well visualized. Prior Study Comparison Changes noted compared to prior study dated: 03/24/2022. Right atrial pressures are mildly elevated compared to prior study Measurements 2D Linear Measurements IVSd: 1.13 0.6-0.9/0.6-1.0 cm LVIDd: 4.31 3.9-5.3/4.2-5.9 cm LVIDd Index: 2.51 2.4-3.2/2.2-3.1 cm/m2 LVIDs: 2.94 2.0-3.6 cm LVPWd: 0.83 0.7-1.1 cm LV Mass: 173.33 67-162/88-224 g LV Mass Index: 100.77 43-95/49-115 g/m2 LVOT Diam: 2.00 3.0+(-)1.3 cm 2D Systolic Function EF 4C: 57.80 >55% EF 2C: 62.80 >55% EF BiP: 61.00 >55% Mitral Valve MV Pk E: 0.81 MV PK A: 0.46 MV Decel Time: 198.00 E/A: 1.80 E'Lateral: 10.20 E'Medial: 6.31 E/E' Med: 12.80 E/E' Lat: 7.90 PHT: 58.00 MVA PHT: 3.79 Decel [place]: 4.09 Aortic Valve AoV Pk Luis: 1.69 AoV Mn Luis: 1.18 AoV VTI: 0.33 AoV Pk Grad: 11.00 Aov Mn Grad: 6.00 SUNNY Cont.VTI: 1.94 LVOT LVOT Pk Luis: 0.97 LVOT Mn Luis: 0.59 LVOT VTI: 0.20 LVOT Pk Grad: 4.00 LVOT Mn Grad: 2.00 LVOT Diam: 2.00 LVOT Area: 3.14 Diastolic Function MV Pk E: 0.81 MV Pk A: 0.46 E/A: 1.80 E'Medial: 6.31 E/E' Med: 12.80 E' Laterial: 10.20 E/E' Lat: 7.90 Right Ventricle TAPSE (mm): 20.30 TVS' Luis: 10.70 Tricuspid Valve TR Pk Luis: 2.33 TR Pk Grad: 22.00 RA Press: 8.00 RVSP: 30.00 Great Vessels Aorta Sinus of Valsalva: 3.16 2.0-3.5 cm Updated in Other Vendor System with Status of Final Wally Emmanuel MD electronically signed on 04/05/2024 8:38:01 AM with status of Final
== END ==
LOC: HO.CARD 12:59
PROVIDERS: PCP Internal Medicine; Visit Provider Internal Medicine
DX: R06.09 Other forms of dyspnea (principal); J81.1 Chronic pulmonary edema
CPT/HCPCS: 93306; Q9957

== ENCOUNTER → 2024-04-04 13:02 | Outpatient (BNV) | payer OTHER, SELFPAY | PROVIDERS: PCP Internal Medicine; Visit Provider Internal Medicine Cardiovascular Disease | DX: I36.1 Nonrheumatic tricuspid (valve) insufficiency (principal); I34.81 Nonrheumatic mitral (valve) annulus calcification | CPT/HCPCS: 93306 ==

== ENCOUNTER 2024-05-28 15:50 | Outpatient (AMB) | payer OTHER, SELFPAY ==
[2024-05-28 15:51] VITALS: BP 110/78; PULSE 61; O2SAT 97; BMI 31.6
--- NOTE | 2024-05-28 15:51 | A.OFFPC_ITS ---
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 Required: No Accompanied by: Self / Same As Patient Allergies latex Allergy (Verified 05/28/24 16:28) Unknown Medication List - Last Reconciled 05/28/24 by Chandan Clayton MD albuterol sulfate 2.5 mg (3 mL) inhalation QID PRN albuterol sulfate 90 mcg/actuation (Ventolin HFA) 2 puffs PO Q4H PRN aspirin 81 mg PO DAILY 90 days budesonide-formoterol 80-4.5 mcg/actuation (Symbicort) 2 puffs inhalation BID clonazepam 0.5 mg PO DAILY PRN 28 days methadone 120 mg PO DAILY pantoprazole 40 mg PO DAILY [PULSE OXIMETER As directed] sertraline 100 mg PO DAILY 90 days tiotropium bromide 2.5 mcg/actuation (Spiriva Respimat) 2 puffs inhalation DAILY trazodone 200 mg (2 x 100 mg) PO BEDTIME PRN Tobacco use date assessed: 05/28/24 Dental Screening Dental Screen Date: 05/28/24 Did you have a dental visit in the last 12 months?: No Did you have a dental problem in the last 6 months where you did not have access to dental care?: No Was dental information given to patient?: No HPI 3 MO F/U HPI Details Patient comes in today for her follow up visit States that she has been experiencing increased swelling of both her legs for past few months She also now has significant eczema lesions on both lower legs due to her increased edema recently Adds that her anxiety has been increasing lately - does not think that her Sertraline is helping at all She denies any headaches or dizziness; denies any fever Denies any chest pains, no increased SOB No nausea/vomiting, no abdominal pain No change in bowel habits noted She has no follow up labs done recently [facility] Medical History (Updated 06/04/24 @ 00:56 by Chandan Clayton MD) Vitamin D deficiency Obesity (BMI 30-39.9) Overweight (BMI 25.0-29.9) Takotsubo cardiomyopathy Insomnia Uterine fibroid Opioid dependence Snoring Environmental allergies Acute hypernatremia Pneumothorax on left Atelectasis of left lung Leukocytosis Cavitary pneumonia Hyponatremia Leukocytosis Sepsis Pneumonia Asthma with COPD (chronic obstructive pulmonary disease) Surgical History History of cholecystectomy History of left knee surgery History of delivery Family History Other Family history non-contributory Social History Household Members: Spouse Housing: House Do you presently have visiting nurse or other home services: No Alcohol intake: current Alcohol intake frequency: does not drink Comment: sleeping Patient Tobacco Use Status: Former Tobacco user Tobacco use type: Cigarette Cigarette Packs Per Day: 1 Years Smoked: 40 years, quit smoking 4 years ago e-Cigarette/Vaping Use: Never Used Second Hand Smoke Exposure: Yes service: No Current occupational status: unemployed Cognitive needs: Yes (wheelchair, ) Hearing needs: No Vision needs: Yes (Reading Glasses) Questionnaire PHQ-9 Over the last 2 weeks, how often have you been bothered by any of the following problems? 1. Little interest or pleasure in doing things: not at all 2. Feeling down, depressed, or hopeless: not at all 3. Trouble falling or staying asleep, or sleeping too much: not at all 4. Feeling tired or having little energy: not at all 5. Poor appetite or overeating: not at all 6. Feeling bad about yourself - or that you are a failure or have let yourself or your family down: not at all 7. Trouble concentrating on things, such as reading the newspaper or watching television: not at all 8. Moving or speaking so slowly that other people could have noticed. Or the opposite - being so fidgety or restless that you have been moving around a lot more than usual: not at all 9. Thoughts that you would be better off or of hurting yourself in some way: not at all Total score: 0 Depression Screening Interpretation: Negative Depression Screening Done: Yes 18930 - PHQ-9 Billing: Yes Source: Developed by Drs. Dejuan Madrid, Jay Juares and colleagues, with an educational valorie from [employer]. Thrive Questionnaire Date Thrive assessed: 05/28/24 I am a: Patient What is your living situation today?: I have a steady place to live Within the past 12 months, did the food you bought not last and you didn't have the money to get more?: Never true Within the past 12 months, did you worry whether your food would run out before you got money to buy more?: Never true Do you have trouble paying for medicines?: No Do you have trouble getting transportation to medical appointments?: No Do you have trouble paying your heating and electricity bill?: No Do you have trouble taking care of your child, family member or friend?: No Do you have trouble with day-to-day activities such as bathing, preparing meals, shopping, managing finances, etc.?: No Are you currently unemployed and looking for a job?: No Are you interested in more education?: No Please select the resources that you would like help with: None Currently or been in a relationship where the following occur: No concerns reported THRIVE Score: 0 AUDIT C Alcohol Use Questionnaire (AUDIT-C) 1. How often do you have a drink containing alcohol?: Never 3. How often do you have six or more drinks on one occasion?: Never Total Score: 0 Score Reviewed/Action Taken: Yes BROOKLYN-7 AMB Questionnaire BROOK[place]N-7 Date BROOKLYN - 7 assessed: 05/28/24 Feeling nervous, anxious, or on edge: 0 = Not at all Not being able to stop or control worryin = Not at all Worrying too much about different things: 0 = Not at all Trouble relaxin = Not at all Being so restless that it is hard to sit still: 0 = Not at all Becoming easily annoyed or irritable: 0 = Not at all Feeling afraid as if something awful might happen: 0 = Not at all Total [place]-7 score (0-4 normal; 5-9 mild; 10-14 moderate; 15-21 severe): 0 Source: Developed by Drs. Dejuan Madrid, Jay Juares and colleagues, with an educational valorie from [employer]. Review of Systems Const Details: increased swelling of both legs and feet Denies chills, Reports difficulty sleeping, Reports fatigue, Denies fever(s), Denies headache(s) and Reports weight gain ENT Denies dysphagia, Denies dizziness, Denies otalgia, Denies headache(s), Denies odynophagia and Denies sore throat Card Denies chest pain, Denies palpitations and Reports dyspnea on exertion Resp Denies chest congestion, Denies cough and Reports dyspnea on exertion GI Denies abdominal pain, Denies constipation, Denies dysphagia, Denies heartburn, Denies diarrhea, Denies nausea, Denies odynophagia and Denies vomiting Details: (+) urinary frequency Denies difficulty voiding, Denies nocturia, Denies dysuria and Denies urinary urgency Musc Denies back pain Skin/Breast Reports rash (on both lower legs) Neuro Denies dizziness and Denies headache(s) Psych Reports anxiety (increasing) Endo Reports fatigue and Denies palpitations Dominick/Lymph Details: increased swelling of both legs and feet Physical exam (Primary Care) Vital Signs: Last Vital Signs Pulse 61 05/28/24 15:51 BP 110/78 05/28/24 15:51 Pulse Ox 97 05/28/24 15:51 Oxygen Delivery Method Nasal Cannula 05/28/24 15:51 Oxygen Flow Rate 2 05/28/24 15:51 BMI result Body Mass Index 31.6 Tobacco/Smoking Status: Tobacco use Status Tobacco use date assessed 05/28/24 05/28/24 15:55 Patient Tobacco Use Status Former Tobacco user 05/28/24 15:55 Tobacco use type Cigarette 05/28/24 15:55 e-Cigarette/Vaping Use Never Used 05/28/24 15:55 PHQ-9: PHQ-9 Score PHQ-9: Total score 0 05/28/24 16:31 Depression Screening Interpretation: Negative Thrive Assessment: Date of Thrive Assessment Date Thrive assessed 05/28/24 05/28/24 15:55 Currently or been in a relationship where the following occur: No concerns reported Const General: no acute distress and alert HENMT Ears: TM's normal bilaterally and EAC's normal Throat: Yes posterior oropharynx normal and Yes tonsils normal Neck Neck: Yes no lymphadenopathy and Yes supple Thyroid: Thyroid normal Resp Auscultation: no crackles, no rales, rhonchi (occasional) throughout, no wheezes and diminished lung sounds bilateral Cardio Rate: regular rate Rhythm: regular rhythm Heart sounds: no murmurs GI Palpation (GI): Soft to palpation and nontender Auscultation: normal bowel sounds General: Yes no CVA tenderness Back/Spine/Pelvis Back: no CVA tenderness Thoracic/Lumbar Spine: No lumbar spinal tenderness Skin Other: (+) erythema of the distal half of both lower legs and both ankles; (+) scaling rash over the distal third of the right lower leg Extrem General: Yes edema (3+ edema of both lower extremities) Results Reviewed Results Reviewed: Laboratory Tests 01/31/24 08:32 WBC 6.6 Hgb 9.3 L D Hct 31.3 L D MCV 87.2 MCH 25.9 L RDW 13.5 ESR 34 H Sodium 142 Potassium 4.1 Creatinine 0.81 Estimated GFR > 60 Fasting Glucose 88 Hemoglobin A1c % 4.9 Calcium 8.9 AST 20 ALT 10 B-Natriuretic Peptide 19 Triglycerides 182 H Cholesterol 177 LDL Cholesterol, Calc 86 HDL Cholesterol 55 25-OH Vitamin D Total 9.8 L TSH 1.69 Coding Level of Care Code Est Pt Level 4 (80503) Diagnoses Generalized edema R60.1 Edema type: generalized Takotsubo cardiomyopathy I51.81 Asthma with COPD (chronic obstructive pulmonary disease) J44.9 Opioid dependence in remission F11.21 Substance use status: in remission Gastroesophageal reflux disease without esophagitis K21.9 Esophagitis presence: without esophagitis Vitamin D deficiency E55.9 Insomnia, unspecified type G47.00 Insomnia type: unspecified Generalized anxiety disorder F41.1 Obesity (BMI 30-39.9) E66.9 Assessment & Plan Assessment & Plan (1) Edema: Code(s): R60.9 - Edema, unspecified Category: Medical Qualifiers: Edema type: generalized Qualified Code(s): R60.1 - Generalized edema Plan: Unknown etiology but likely due to lymphedema With patient's history of Takotsubo's cardiomyopathy, cardiac and renal causes should also be considered Will send her for some labs MADELIEN for further evaluation She is instructed in the meantime to keep her legs elevated as often as she can (2) Takotsubo cardiomyopathy: Code(s): I51.81 - Takotsubo syndrome Category: Medical Plan: Patient had coronary angiography done on 02/08/2023 that revealed only (+) mild disease in the LAD and L PDA, and medical management and aggressive risk factor(s) modification were recommended Continue Aspirin 81 mg QD and Metoprolol ER 25 mg QD Follow up with cardiology as scheduled (3) Asthma with COPD (chronic obstructive pulmonary disease): Code(s): J44.9 - Chronic obstructive pulmonary disease, unspecified Category: Medical Plan: Continue Spiriva Respimat 2.5 mcg 2 inhalations QD, Symbicort 80-4.5 mcg 2 inhalations BID and Albuterol HFA 2 inhalations Q 6 hours PRN Follow up with Pulmonary as scheduled (4) Opioid dependence: Code(s): F11.20 - Opioid dependence, uncomplicated Category: Medical Qualifiers: Substance use status: in remission Qualified Code(s): F11.21 - Opioid dependence, in remission Plan: Continue Methadone 120 mg QD Follow up with the Methadone clinic as scheduled (5) GERD (gastroesophageal reflux disease): Code(s): K21.9 - Gastro-esophageal reflux disease without esophagitis Category: Medical Qualifiers: Esophagitis presence: without esophagitis Qualified Code(s): K21.9 - Gastro-esophageal reflux disease without esophagitis Plan: Dietary restrictions reinforced Continue Pantoprazole 40 mg QD (6) Vitamin D deficiency: Code(s): E55.9 - Vitamin D deficiency, unspecified Category: Medical Plan: She is also advised that her Vitamin D level is very low on her recent labs Will start her on Vitamin D3 2000 units QD (7) Insomnia: Code(s): G47.00 - Insomnia, unspecified Category: Medical Qualifiers: Insomnia type: unspecified Qualified Code(s): G47.00 - Insomnia, unspecified Plan: Sleep hygiene reinforced Continue Trazodone 200 mg Q HS PRN (8) Generalized anxiety disorder: Code(s): F41.1 - Generalized anxiety disorder Category: Medical Plan: Patient has been on Sertraline 100 mg QD and Clonazepam 0.5 mg QD PRN for a while now and she feels that her current Rx are not helping her at all Will have her start cutting back on her Sertraline to 50 mg QD x 1 week, then D/C Will start her then on Fluoxetine 20 mg QD x 14 days, then go up to 40 mg QD Will also increase her Clonazepam from 0.5 mg to 1 mg QD PRN (9) Obesity (BMI 30-39.9): Code(s): E66.9 - Obesity, unspecified Category: Medical Plan: Reinforced diet; exercise and weight loss are not practical given patient's multiple comorbidities Plan Follow up in 3 months Orders: Orders Complete Blood Count Auto Diff 05/30/24 D64.9 - Anemia, unspecified, R60.1 - Generalized edema TSH reflex Free T4 05/30/24 E78.00 - Pure hypercholesterolemia, unspecified, R60.1 - Generalized edema Vitamin D 25-OH Total 05/30/24 E55.9 - Vitamin D deficiency, unspecified, R60.1 - Generalized edema Comprehensive Met. Panel 05/30/24 R60.1 - Generalized edema B Type Natriuretic Peptide 05/30/24 I50.9 - Heart failure, unspecified, R60.1 - Generalized edema IRON PROFILE 05/30/24 D50.9 - Iron deficiency anemia, unspecified, R60.1 - Generalized edema Vitamin B12 and Folate 05/30/24 E53.8 - Deficiency of other specified B group vitamins, R60.1 - Generalized edema Medications: New fluoxetine start taking AFTER finishing fluoxetine 20 mg x 14 days 40 mg PO DAILY 30 days 30 caps 3RF fluoxetine take 20 mg QD x 14 days, then increase to 40 mg QD 20 mg PO DAILY 14 days 14 caps 0RF cholecalciferol (vitamin D3) 50 mcg PO DAILY 90 days 90 caps 3RF E55.9 - Vitamin D deficiency, unspecified Changed From clonazepam 0.5 mg PO DAILY 28 days PRN 28 tabs 0RF anxiety To clonazepam 1 mg PO DAILY 28 days PRN 28 tabs 0RF anxiety
== END 2024-05-28 16:48 | disposition home or self-care (01) ==
LOC: HO.HMCH 15:51
PROVIDERS: PCP Internal Medicine; Visit Provider Internal Medicine
DX: J44.9 Chronic obstructive pulmonary disease, unspecified (principal); F11.21 Opioid dependence, in remission; E66.9 Obesity, unspecified; Z68.31 Body mass index [BMI] 31.0-31.9, adult; R60.1 Generalized edema; I51.81 Takotsubo syndrome; K21.9 Gastro-esophageal reflux disease without esophagitis; E55.9 Vitamin D deficiency, unspecified; G47.00 Insomnia, unspecified; F41.1 Generalized anxiety disorder

== ENCOUNTER → 2024-05-28 15:50 | Outpatient (BNVA) | payer OTHER, SELFPAY | PROVIDERS: PCP Internal Medicine; Visit Provider Internal Medicine | DX: R60.1 Generalized edema (principal); I51.81 Takotsubo syndrome; J44.9 Chronic obstructive pulmonary disease, unspecified; F11.21 Opioid dependence, in remission; K21.9 Gastro-esophageal reflux disease without esophagitis; E55.9 Vitamin D deficiency, unspecified; G47.00 Insomnia, unspecified; F41.1 Generalized anxiety disorder; E66.9 Obesity, unspecified | CPT/HCPCS: 96127; 99212 ==

== ENCOUNTER 2024-05-30 13:40 | Outpatient (REF) | payer OTHER, SELFPAY ==
[2024-05-30 13:51] LABS: MANUAL DIFF FLAG NO
[2024-05-30 14:40] LABS: Basophils Absolute Auto 0.1 X10*3/uL (0.0-0.2); Basophils Percent Auto 0.7 % (0-2); Eosinophils Absolute Auto 0.3 X10*3/uL (0.0-0.4); Eosinophils Percent Auto 3.5 % (0-4); Hematocrit 31.5 % (37.0-47.0); Hemoglobin 9.4 g/dl (12.0-16.0); Imm Gran Abs Auto 0.03 X10*3/uL (0.00-0.03); Imm Gran Pct Auto 0.4 % (0.0-0.4); Lymphocytes Absolute Auto 1.3 X10*3/uL (1.2-4.9); Mean Corpuscular HGB Conc 29.8 g/dl (31.0-35.0); Mean Corpuscular Hemoglobin 24.6 pg (27.0-33.0); Mean Corpuscular Volume 82.5 fL (80.0-98.0); Mean Platelet Volume 11.2 fL (9.4-12.3); Monocytes Absolute Auto 0.7 X10*3/uL (0.1-1.2); Monocytes Percent Auto 8.5 % (2-11); Neutrophils Absolute Auto 5.7 x10*3/uL (2.0-8.3); Neutrophils Percent Auto 70.9 % (45-73); Platelet Count 252 X10*3/uL (160-400); Red Blood Count 3.82 X10*6/uL (4.20-5.50); Red Cell Distribution Width 15.1 % (11.0-16.0)
[2024-05-30 15:10] LABS: B Type Natriuretic Peptide 14 pg/mL (<100)
[2024-05-30 15:13] LABS: Alanine Aminotransferase 13 U/L (0-31); Albumin Level 3.9 g/dL (3.5-5.0); Alkaline Phosphatase 96 U/L (39-117); Anion Gap 13 (12-20); Aspartate Amino Transferase 25 U/L (5-31); Bilirubin Total 0.2 mg/dL (0.0-1.0); Blood Urea Nitrogen 13 mg/dL (9-16); Calcium 9.4 mg/dL (8.4-10.2); Carbon Dioxide 27 mmol/L (22-29); Chloride 105 mmol/L (96-108); Estimated Glomerular Filt Rate > 60; Glucose Random 88 mg/dL (60-115); Iron 20 mcg/dL (30-160); Percent Iron Saturation 6 % (15-50); Potassium 4.1 mmol/L (3.3-5.1); Sodium 141 mmol/L (135-145); Total Iron Binding Capacity 333 mcg/dL (228-428); Total Protein 7.7 g/dL (6.5-8.0); Unsaturated Iron Binding 313 ug/dL
[2024-05-30 15:30] LABS: TSH reflex Free T4 1.11 uIU/mL (0.32-4.0); Vitamin D 25-OH Total 12.1 ng/mL (>30)
[2024-05-30 15:43] LABS: Folate 8.8 ng/mL (> or = 4.0); Vitamin B12 319 pg/mL (200-900)
== END 2024-05-30 13:41 | disposition home or self-care (01) ==
LOC: HO.LAB 13:40
PROVIDERS: PCP Internal Medicine; Visit Provider Internal Medicine
DX: E53.8 Deficiency of other specified B group vitamins (principal); R60.1 Generalized edema; D64.9 Anemia, unspecified; E78.00 Pure hypercholesterolemia, unspecified; E55.9 Vitamin D deficiency, unspecified; I50.9 Heart failure, unspecified; D50.9 Iron deficiency anemia, unspecified
CPT/HCPCS: 36415; 80053; 82306; 82607; 82746; 83540; 83880; 84443; 85025

== ENCOUNTER 2024-07-04 | Outpatient (REF) | payer OTHER, SELFPAY ==
[2024-07-05 15:08] LABS: CDiff Gene PCR NEGATIVE (Negative)
[2024-07-05 16:24] LABS: Leukocytes Stool Qualitative NEGATIVE (NEGATIVE)
== END 2024-07-04 00:01 | disposition home or self-care (01) ==
LOC: HO.LNP
PROVIDERS: Visit Provider Internal Medicine
DX: R19.7 Diarrhea, unspecified (principal)
CPT/HCPCS: 87177; 87209; 87493; 89055